=== PATIENT | male | born 1970 | race Caucasian/White ===

== ENCOUNTER 2023-01-17 15:17 | Outpatient (OUT) | payer MEDICARE, SELFPAY ==
[2023-01-17 11:24] LABS: Estimated Average Glucose 186 mg/dL; Glycohemoglobin A1C 8.1 % (4.5-6.2)
[2023-01-17 12:51] LABS: Alanine Aminotransferase 39 U/L (16-63); Albumin Globulin Ratio 0.7; Albumin Level 3.2 g/dL (3.4-5.0); Alkaline Phosphatase 145 U/L (46-116); Anion Gap 12.8; Aspartate Amino Transferase 17 U/L (15-37); BUN Creatinine Ratio 14.5; Bilirubin Total 0.3 mg/dL (0.2-1.0); C Reactive Protein 0.3 mg/dL (<=1.0); Calcium 9.1 mg/dL (8.5-10.1); Carbon Dioxide 28.9 mmol/L (21.0-32.0); Chloride 99 mmol/L (98-107); Estimated GFR (African America >60 (>=60); Estimated GFR (Non-African Ame >60 (>=60); Globulin 4.5 g/dL; Glucose 223 mg/dL (74-106); Potassium 3.7 mmol/L (3.5-5.1); Sodium 137 mmol/L (136-145); Thyroid Stimulating Hormone 1.163 uIU/mL (0.358-3.740); Total Protein 7.7 g/dL (6.4-8.2)
[2023-01-17 12:53] LABS: Free T4 0.91 ng/dL (0.76-1.46)
[2023-01-17 13:22] LABS: Erythrocyte Sedimentation Rate 28 mm/hr (<=20)
[2023-01-18 04:07] LABS: Vitamin B12 503 pg/mL (232-1245)
[2023-01-18 15:08] LABS: Anti-Centromere B Antibodies <0.2 AI (0.0-0.9); Anti-DNA (DS) Ab Qn <1 IU/mL (0-9); Anti-Jo-1 <0.2 AI (0.0-0.9); Antichromatin Antibodies <0.2 AI (0.0-0.9); Antiribosomal P Antibodies <0.2 AI (0.0-0.9); Antiscleroderma-70 Antibodies <0.2 AI (0.0-0.9); RNP Antibodies <0.2 AI (0.0-0.9); Sjogren's Anti-SS-A <0.2 AI (0.0-0.9); Sjogren's Anti-SS-B <0.2 AI (0.0-0.9); Smith/RNP Antibodies <0.2 AI (0.0-0.9)
[2023-01-19 15:08] LABS: Methylmalonic Acid, Serum 231 nmol/L (0-378)
== END 2023-01-17 15:18 | disposition home or self-care (01) ==
LOC: LAB 01-30 15:17
PROVIDERS: PCP Internal Medicine; Visit Provider Psychiatry & Neurology Neurology
DX: R20.2 Paresthesia of skin (principal)
CPT/HCPCS: 36415; 80053; 82607; 82746; 83036; 83516; 83921; 84155; 84165; 84439; 84443; 85652; 86140; 86225; 86235

== ENCOUNTER 2023-03-26 09:36 | Outpatient (OUT) | payer MEDICARE, SELFPAY ==
[2023-03-26 11:48] LABS: Chol HDL Ratio 5.3; Cholesterol 175 mg/dL (<=200); Glucose 299 mg/dL (74-106); HDL Cholesterol 33 mg/dL (40-60); Triglycerides 456 mg/dL (<=150); VLDL CHOLESTEROL 91.2 mg/dL
[2023-03-26 11:51] LABS: LDL Cholesterol Direct 83 mg/dL
== END 2023-03-26 09:37 | disposition home or self-care (01) ==
LOC: LAB 09:37
PROVIDERS: PCP Internal Medicine; Visit Provider Psychiatry & Neurology Psychiatry
DX: F20.9 Schizophrenia, unspecified (principal); Z79.899 Other long term (current) drug therapy
CPT/HCPCS: 36415; 80061; 82947; 83721

== ENCOUNTER 2023-03-27 12:16 | Outpatient (OUT) | payer MEDICARE, SELFPAY ==
[2023-04-05 14:11] LABS: Ova + Parasite Exam Final report (.)
== END 2023-03-27 12:17 | disposition home or self-care (01) ==
PROVIDERS: PCP Internal Medicine; Visit Provider Internal Medicine
DX: L29.0 Pruritus ani (principal)
CPT/HCPCS: 87177; 87209

== ENCOUNTER 2023-06-29 06:49 | Outpatient (OUT) | payer MEDICARE, SELFPAY ==
[2023-06-29 07:25] LABS: Basophils Absolute Auto 0.1 10^3/uL (0.0-0.1); Basophils Percent Auto 1.3 % (0.2-2.0); Eosinophils Absolute Auto 0.5 10^3/uL (0.0-0.7); Eosinophils Percent Auto 4.6 % (0.9-7.0); Hematocrit 44.4 % (42.0-54.0); Hemoglobin 15.5 g/dL (14.0-18.0); Immature Granulocytes Abs Auto 0.06 10^3/uL (0.00-0.03); Immature Granulocytes Pct Auto 0.6 % (0.0-0.5); Lymphocytes Absolute Auto 2.4 10^3/uL (1.2-3.8); Lymphocytes Percent Auto 24.8 % (20.5-60.0); Mean Corpuscular HGB Conc 34.9 g/dL (29.9-35.2); Mean Corpuscular Hemoglobin 33.7 pg (25.9-34.0); Mean Corpuscular Volume 96.5 fL (80.0-94.0); Mean Platelet Volume 9.8 fL (9.5-13.5); Monocytes Absolute Auto 0.8 10^3/uL (0.3-0.8); Monocytes Percent Auto 8.3 % (1.7-12.0); Neutrophils Absolute Auto 5.9 10^3/uL (1.4-6.5); Neutrophils Percent Auto 60.4 % (43.0-75.0); Platelet Count 234 10^3/uL (150-450); Red Cell Distribution Width 11.5 % (11.0-15.0); White Blood Count 9.8 10^3/uL (4.0-11.0)
[2023-06-29 07:28] LABS: Estimated Average Glucose 180 mg/dL; Glycohemoglobin A1C 7.9 % (4.5-6.2)
[2023-06-29 07:44] LABS: Creatinine Urine Random 140.36 mg/dL (20.00-300.00); Microalbum Creatinine Ratio Ur 9.2 mg/g (0.0-29.9); Microalbumin Urine Random <1.3 mg/dL (<=30.0)
[2023-06-29 07:47] LABS: Alanine Aminotransferase 31 U/L (16-63); Albumin Globulin Ratio 0.8; Albumin Level 3.4 g/dL (3.4-5.0); Alkaline Phosphatase 141 U/L (46-116); Anion Gap 15.4; Aspartate Amino Transferase 21 U/L (15-37); BUN Creatinine Ratio 9.6; Bilirubin Total 0.4 mg/dL (0.2-1.0); Calcium 8.5 mg/dL (8.5-10.1); Carbon Dioxide 29.5 mmol/L (21.0-32.0); Chloride 100 mmol/L (98-107); Chol HDL Ratio 3.5; Cholesterol 152 mg/dL (<=200); Estimated GFR (African America >60 (>=60); Estimated GFR (Non-African Ame >60 (>=60); Globulin 4.4 g/dL; Glucose 142 mg/dL (74-106); HDL Cholesterol 43 mg/dL (40-60); Potassium 3.9 mmol/L (3.5-5.1); Sodium 141 mmol/L (136-145); Total Protein 7.8 g/dL (6.4-8.2); Triglycerides 301 mg/dL (<=150); VLDL CHOLESTEROL 60.2 mg/dL
== END 2023-06-29 06:50 | disposition home or self-care (01) ==
LOC: LAB 06:50
PROVIDERS: PCP Internal Medicine; Visit Provider Internal Medicine
DX: E66.01 Morbid (severe) obesity due to excess calories (principal); E11.9 Type 2 diabetes mellitus without complications; Z79.4 Long term (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 of insulin; F20.9 Schizophrenia, unspecified; E78.5 Hyperlipidemia, unspecified
CPT/HCPCS: 36415; 80053; 80061; 82043; 82570; 83036; 84156; 85025

== ENCOUNTER 2023-09-24 06:38 | Outpatient (OUT) | payer MEDICARE, SELFPAY ==
--- OUTSIDE RECORDS SUMMARY | 2023-09-24 06:41 | XMS_ITS | CCD ---
Author Name Unknown Address [address] [facility] [id number] [place] [address] Organization [facility] Care Team Providers Care Director Corporate Security Name Role Phone RAQUEL PIERREL B Unavailable Unavailable PIERRE, KUL B Unavailable Unavailable PROVIDER, UNKNOWN Attending Unavailable PROVIDER, UNKNOWN Admitting Unavailable FAWWAD, STONE Primary Care Physician Terri Brito Unavailable Unavailable ERICKSON Lopez, DR TEE Brush Admitting Unavaila alex Lopez, DR TEE Brush Attending Unavaila ble FAWWAD, STONE H Referring Unavailable FAWWAD, STONE H Primary Care Unavailable ERICKSON Lopez, DR TEE Brush Consulting Unavaila ble FAWWAD, STONE H Admitting Unavailable FAWWAD, STONE H Attending Unavailable FAWWAD, STONE H Primary Care Unavailable FAWWAD, STONE H Consulting Unavailable FAWWAD, STONE H Admitting Unavailable FAWWAD, STONE H Attending Unavailable FAWWAD, STONE H Primary Care Unavailable FAWWAD, STONE H Consulting Unavailable FAWWAD, STONE H Admitting Unavailable FAWWAD, STONE H Attending Unavailable FAWWAD, STONE H Primary Care Unavailable FAWWAD, STONE H Admitting Unavailable FAWWAD, STONE H Attending Unavailable FAWWAD, STONE H Primary Care Unavailable FAWWAD, STONE H Consulting Unavailable FAWWAD, STONE H Primary Care Unavailable MARKER ., DR STYLES Admitting Unavailable MARKER ., DR STYLES Attending Unavailable MARKER ., DR STYLES Consulting Unavailable PERICO DIAMOND Consulting Unavailable FAWWAD, STONE H Primary Care Unavailable LISA, DR JUNITO Galvan Admitting Unavailabl e DR JUNITO GONZALEZ Attending Unavailmaite GONZALEZ, DR JUNITO Galvan Consulting UnavailSHANE Duke Admitting Unavailable SHANE NATH Attending Unavailable SHAIKH SIMS Primary Care Unavailable SHANE NATH Consulting Unavailable SHAIKH SIMS Primary Care Unavailable YU FERNANDEZ Attending Unavailable YU FERNANDEZ Attending Unavailable SHAIKH SIMS Primary Care Unavailable SHAIKH SIMS Attending Unavailable SHAIKH SIMS Attending Unavailable Kota Pozo Attending UnavailKota Andrea Admitting UnavailBam Santiago Primary Care Unavailable Allergies Allergy Classification Reported Allergen(s) Allergy Type Date of Onset Reaction(s) Facility (1 source) Shellfish Drug allergy (disorder) 03-15-2017 [facility] Repository Medications Current Medications Medication Drug Class(es) Dates Sig (Normalized) Sig (Original) albuterol CFC free 90 mcg/inh Inh Aer w/Adapt 8 gm (Ventolin) (3 sources) Start: 10-16-2011 take 2 puff(s) by inhalation four times daily albuterol CFC free 90 mcg/inh Inh Aer w/Adapt 8 gm (Ventolin) 2 puff(s), Inhalation, QID, Refill(s) 0, 0, Print Requisition Start Date: 10/16/11 Status: Ordered chlorproMAZINE (2 sources) Phenothiazine Start: 09-23-2010 Thorazine 25 mg Tab 50mg tid, Refills(s) 0 Start Date: 09/23/10 Status: Ordered 24 hr dilTIAZem hydrochloride 120 mg extended release oral capsule (2 sources) Calcium Channel Ada Start: 08-22-2011 Cardizem CD 120 mg/24 hours Cap-ER 120 mg = 1 cap(s), Oral, Daily, # 30 cap(s), Refills(s) 1, , Print Requisition Start Date: 08/22/11 Status: Ordered Start: 08-22-2011 Cardizem CD 12 0 mg/24 hours Cap-ER 120 mg = 1 cap(s), Oral, Daily, # 30 cap(s), Refills(s) 1, 1, Print Requisition Start Date: 08/22/11 Status: Ordered glipiZIDE er 5 mg 24 hr extended release oral tablet (3 sources) Sulfonylurea Start: 11-15-2021 take 1 tablet by mouth once daily glipiZIDE 5 mg ER Tab 5 mg = 1 tab(s), Oral, Daily Start Date: 11/15/21 Status: Ordered haloperidol 5 mg oral tablet (2 sources) Typical Antipsychotic Start: 04-11-2021 take 1 tablet by mouth twice daily haloperidol 5 mg Tab 5 mg = 1 tab(s), Oral, BID, # 60 tab(s), Refills(s) 0, Pharmacy: [facility] Start Date: 04/11/21 Status: Ordered Lantus (3 sources) Insulin Analog Start: 11-15-2021 Lantus insulin See Instructions Start Date: 11/15/21 Status: Ordered LORazepam 0.5 mg oral tablet (2 sources) Benzodiazepine Start: 09-23-2010 take 1 tablet by mouth three times daily as needed for anxiety Ativan 0.5 mg oral tablet = 1 tab(s), Oral, TID, PRN PRN for anxiety, tab(s), Refills(s) 0 Start Date: 09/23/10 Status: Ordered OLANZapine 20 mg oral tablet (1 source) Atypical Antipsychotic Start: 11-15-2022 olanzapine 20 mg oral tablet Refills(s) 0 Start Date: 11/15/22 Status: Ordered PARoxetine hydrochloride 30 mg oral tablet (2 sources) Serotonin Reuptake Inhibitor Start: 12-08-2011 take 1 tablet by mouth once daily paroxetine 30 mg Tab 30 mg = 1 tab(s), Oral, Daily, Refills(s) 0 Start Date: 12/08/11 Status: Ordered Start: 12-08-2011 take 1 tablet by laura th once daily paroxetine 30 mg Tab 30 mg = 1 tab(s), Oral, Daily, Refills(s) 0 Start Date: 12/08/11 Status: Ordered QUEtiapine 100 mg oral tablet (2 sources) Atypical Antipsychotic Start: 11-15-2021 take 1 tablet by mouth once daily SEROquel 100 mg Tab 100 mg = 1 tab(s), Oral, Daily Start Date: 11/15/21 Status: Ordered tadalafil 20 mg oral tablet (1 source) Phosphodiesterase 5 Inhibitor Start: 11-15-2021 take 1 tablet by mouth once daily Cialis 20 mg Tab 20 mg = 1 tab(s), Oral, Daily, As directed for erectile dysfunction., # 30 tab(s), Refills(s) 3, Pharmacy: [facility], 170, cm, 11/15/21 9:38:00 EDT, Height/Length Dosing, 116.6, kg, 11/15/21 9:38:00 EDT, Weight Dosing Start Date: 11/15/21 Status: Ordered 60 actuat testosterone 20.25 mg/actuat topical gel (2 sources) Androgen Start: 08-23-2021 AndroGel Pump 20.25 mg/1.25 g (1.62%) transdermal gel = 2 pump, Topical, qAM, # 75 gram, Refills(s) 1, Pharmacy: [facility], 170, cm, 07/05/21 10:18:00 EST, Height/Length Dosing, 170, kg, 08/23/21 9:37:00 EST, Weight Dosing Start Date: 08/23/21 Status: Ordered vardenafil 20 mg oral tablet (1 source) Phosphodiesterase 5 Inhibitor Start: 01-17-2022 take 1 tablet by mouth once daily as needed Levitra 20 mg Tab 20 mg = 1 tab(s), Oral, Daily, PRN for erectile dysfunction, # 30 tab(s), Refills(s) 1, Pharmacy: [facility], 170, cm, 01/17/22 10:42:00 EDT, Height/Length Dosing, 116.6, kg, 01/17/22 10:42:00 EDT, Weight Dosing Start Date: 01/17/22 Status: Ordered Completed/Discontinued Medications Medication Drug Class(es) Dates Sig (Normalized) Sig (Original) acetaminophen 325 mg / oxyCODONE hydrochloride 5 mg oral tablet (2 sources) Opioid Agonist Start: 12-08-2011 Percocet 325 mg-5 mg Tab 1 tab(s), Oral, q6hr PRN as needed for pain, 20 tab(s), Refill(s) 0, 0, Print Requisition Start Date: 12/08/11 Status: Ordered Ipratropium (3 sources) Anticholinergic Start: 08-22-2011 take 2.5 mL by inhalation every four hours as needed for dyspnea ipratropium 0.02% inhalation solution 500 microgram = 2.5 mL, NEB, q4hr, PRN PRN Dyspnea, # 150 mL, Refills(s) 0, 0, Print Requisition Start Date: 08/22/11 Status: Ordered Start: 08-22-2011 take 2.5 mL by inhal ation every four hours as needed for dyspnea ipratropium 0.02% inhalation solution 500 microgram = 2.5 mL, NEB, q4hr, PRN PRN Dyspnea, # 150 mL, Refills(s) 0, 0, Print Requisition Start Date: 08/22/11 Status: Ordered naproxen 500 mg oral tablet (2 sources) Nonsteroidal Anti-inflammatory Drug Start: 10-16-2011 take 1 tablet by mouth twice daily naproxen 500 mg Tab 500 mg = 1 tab(s), Oral, BID, Take one tab by mouth two times a day, # 14 tab(s), Refills(s) 0, 0, Print Requisition Start Date: 10/16/11 Status: Ordered Problems Active Problems Problem Classification Problem Date Documented Da te Episodic/Chronic Chronic obstructive pulmonary disease and bronchiectasis (4 sources) Chronic obstructive lung disease; Translations: [Chronic obstructive pulmonary disease, unspecified] Onset: 03-27-2022 10-16-2011 Chronic Diabetes mellitus without complication (5 sources) Type 2 diabetes mellitus without complications; Translations: [TYPE 2 DM WITHOUT COMPLICATIONS] Onset: 03-14-2022 Chronic Genitourinary symptoms and ill-defined conditions (5 sources) Nocturia; Translations: [Nocturia] Onset: 11-15-2021 Episodic Mood disorders (4 sources) Depressive disorder; Translations: [Bipolar disorder, unspecified] Onset: 03-27-2022 09-26-2013 Chronic Mood disorders (2 sources) Major depressive disorder, single episode, unspecified; Translations: [Major depressive disorder, single episode, unspecified] Onset: 01-29-2017 Other endocrine disorders (2 sources) Testicular hypofunction; Translations: [Testicular hypofunction] Onset: 11-15-2021 Chronic Other endocrine disorders (3 sources) Male hypogonadism 07-05-2021 Chronic Other gastrointestinal disorders (2 sources) Incontinence of feces; Translations: [Full incontinence of feces] Onset: 11-15-2022 Episodic Other male genital disorders (6 sources) Secondary erectile dysfunction; Translations: [Erectile dysfunction due to diseases classified elsewhere] Onset: 11-15-2021 Chronic Other male genital disorders (1 source) Erectile dysfunction due to diseases classified elsewhere; Translations: [ERECTILE DYSF D/T DZ CLASS ELSW] Onset: 12-09-2021 Chronic Other nervous system disorders (1 source) Paresthesia of skin; Translations: [PARESTHESIA OF SKIN] Onset: 11-26-2022 Episodic Other nutritional; endocrine; and metabolic disorders (1 source) Morbid (severe) obesity due to excess calories; Translations: [MORBID SEVERE OBES D/T EXCESS HEIDI] Onset: 03-27-2022 Chronic Other nutritional; endocrine; and metabolic disorders (1 source) Body mass index (BMI) 39.0-39.9, adult; Translations: [BODY MASS INDEX BMI 39.0-39.9 ADULT] Onset: 03-27-2022 Chronic Residual codes; unclassified (1 source) Pain; Translations: [Pain, unspecified] Onset: 11-15-2022 Episodic Residual codes; unclassified (1 source) Electric shock type pain 11-15-2022 Episodic Schizophrenia and other psychotic disorders (4 sources) Schizoaffective disorder, unspecified; 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] Onset: 01-29-2017 Chronic Substance-related disorders (1 source) Nicotine dependence, cigarettes, uncomplicated; Translations: [NICOTINE DEPEND CIGARETTES UNCOMP] Onset: 03-27-2022 Chronic Past or Other Problems Problem Classification Problem Date Documented Da te Episodic/Chronic Fluid and electrolyte disorders (2 sources) Hypokalemia; Translations: [Other disorders of electrolyte and fluid balance, not elsewhere classified] Onset: 03-14-2022 Episodic Nonspecific chest pain (3 sources) Chest pain, unspecified; Translations: [CHEST PAIN UNSPECIFIED] Onset: 03-24-2022 Episodic Other aftercare (5 sources) 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; Translations: [OTH LEISURE TRAVEL AGENT CURRENT DRUG THERAPY] Onset: 12-08-2021 Episodic Other aftercare (1 source) halfway (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 of insulin; Translations: [ASSISTED CURRENT USE OF INSULIN] Onset: 03-27-2022 Episodic Other gastrointestinal disorders (1 source) Constipation, unspecified; Translations: [CONSTIPATION UNSPECIFIED] Onset: 03-27-2022 Episodic Other nervous system disorders (3 sources) Fasciculation; Translations: [FASCICULATION] Onset: 03-11-2022 Episodic Results Test Name Value Interpretation Reference Range Facility CBC AUTO DIFFon 11-24-2022 BASO # 0.1 103/ul Normal 0.0-0.1 [facility] Comment on above: Performed By: #### C BC #### [facility] [address] [address] [address] Kenna Thomas Basophils/100 WBC (Bld) 1.1 % Normal 0.2-2.0 [facility] Comment on above: Performed By: #### C BC #### [facility] [address] [address] [address] Kenna Thomas EO # 0.4 103/ul Normal 0.0-0.7 [facility] Comment on above: Performed By: #### C BC #### [facility] [address] [place] [address] Dr. Kenna Thomas Eosinophils/100 WBC (Bld) 4.6 % Normal 0.9-7.0 [facility] Comment on above: Performed By: #### C BC #### [facility] [address] [address] [address] Kenna Thomas Erythrocyte distribution width (RBC) [Ratio] 11.5 % Normal 11.0-15.0 [facility] Comment on above: Performed By: #### C BC #### [facility] [address] [place] [address] Dr. Kenna Thomas Hematocrit (Bld) [Volume fraction] 44.3 % Normal 42.0-54.0 [facility] Comment on above: Performed By: #### C BC #### [facility] [address] [address] [address] Kenna Thomas Hemoglobin (Bld) [Mass/Vol] 15.8 g/dL Normal 14.0-18.0 [facility] Comment on above: Performed By: #### C BC #### [facility] [address] [place] [address] Dr. Kenna Thomas IG # 0.03 10e3/ul Normal 0.00-0.03 [facility] Comment on above: Performed By: #### C BC #### [facility] [address] [place] [address] Dr. Kenna Thomas IG % 0.4 % Normal 0.0-0.5 [facility] Comment on above: Performed By: #### C BC #### [facility] [address] [place] [address] Dr. Kenna Thomas LYMPH # 1.8 103/ul Normal 1.2-3.8 [facility] Comment on above: Performed By: #### C BC #### [facility] [address] [place] [address] Dr. Kenna Thomas Lymphocytes/100 WBC (Bld) 23.3 % Normal 20.5-60.0 [facility] Comment on above: Performed By: #### C BC #### [facility] [address] [place] [address] Dr. Kenna Thomas MANUAL DIFF REQ NO Normal [facility] Comment on above: Performed By: #### C BC #### [facility] [address] [place] [address] Dr. Kenna Thomas MCH (RBC) [Entitic mass] 34.1 pg Critically high 25.9-34.0 [facility] Comment on above: Performed By: #### C BC #### [facility] [address] [place] [address] Dr. Kenna Thomas MCHC (RBC) [Mass/Vol] 35.7 g/dL Critically high 29.9-35.2 [facility] Comment on above: Performed By: #### C BC #### [facility] [address] [place] [address] Dr. Kenna Thomas MCV (RBC) [Entitic vol] 95.5 fL Critically high 80.0-94.0 [facility] Comment on above: Performed By: #### C BC #### [facility] [address] [place] [address] Dr. Kenna Thomas MONO # 0.7 103/ul Normal 0.3-0.8 [facility] Comment on above: Performed By: #### C BC #### [facility] [address] [address] [address] Kenna Thomas Monocytes/100 WBC (Bld) 8.4 % Normal 1.7-12.0 [facility] Comment on above: Performed By: #### C BC #### [facility] [address] [place] [address] Dr. Kenna Thomas NEUT # 4.9 103/ul Normal 1.4-6.5 [facility] Comment on above: Performed By: #### C BC #### [facility] [address] [place] [address] Dr. Kenna Thomas Neutrophils/100 WBC (Bld) 62.2 % Normal 43.0-75.0 [facility] Comment on above: Performed By: #### C BC #### [facility] [address] [place] [address] Dr. Kenna Thomas Platelet mean volume (Bld) [Entitic vol] 9.6 fL Normal 9.5-13.5 [facility] Comment on above: Performed By: #### C BC #### [facility] [address] [place] [address] Dr. Kenna Thomas PLT 251 103/ul Normal 150-450 [facility] Comment on above: Performed By: #### C BC #### [facility] [address] [place] [address] Dr. Kenna Thomas RBC 4.64 106/ul Critically low 4.70-6.10 [facility] Comment on above: Performed By: #### C BC #### [facility] [address] [place] [address] Dr. Knena Thomas WBC 7.9 103/ul Normal 4.0-11.0 [facility] Comment on above: Performed By: #### C BC #### [facility] [address] [place] [address] Dr. Kenna Thomas GLYCOHEMOGLOBIN A1Con 2022 ADA RECOMMENDATION SEE BELOW Normal [facility] Comment on above: Result Comment: ADA RECOMMENDED LIMIT 4.0 - 6.0 ADA THERAPEUTIC TARGET < 7.0 ACTION SUGGESTED > 7.0 Performed By: #### G ELGIN, LIPID #### [facility] [address] [address] [address] Kenna Thomas Glucose [Mass/Vol] 171 mg/dL Normal [facility] Comment on above: Performed By: #### G ELGIN, LIPID #### [facility] [address] [address] [address] Kenna Thomas HbA1c (Bld) [Mass fraction] 7.6 % Critically high 4.5-6.2 [facility] Comment on above: Performed By: #### G ELGIN, LIPID #### [facility] [address] [address] [address] Kenna Thomas PROF 14(COMP METB)on 023 Albumin [Mass/Vol] 3.4 g/dL Normal 3.4-5.0 [facility] Comment on above: Performed By: #### C MP #### [facility] [address] [address] [address] Kenna Thomas Albumin/Globulin [Mass ratio] 0.7 {ratio} Normal [facility] Comment on above: Performed By: #### C MP #### [facility] [address] [address] [address] Kenna Thomas ALP [Catalytic activity/Vol] 166 U/L Critically high 46-116 [facility] Comment on above: Performed By: #### C MP #### [facility] [address] [address] [address] Kenna Thomas ALT [Catalytic activity/Vol] 46 U/L Normal 16-63 [facility] Comment on above: Performed By: #### C MP #### [facility] [address] [address] [address] Kenna Thomas Anion gap [Moles/Vol] 12.2 mmol/L Normal [facility] Comment on above: Performed By: #### C MP #### [facility] [address] [address] [address] Kenna Thomas AST [Catalytic activity/Vol] 33 U/L Normal 15-37 [facility] Comment on above: Performed By: #### C MP #### [facility] [address] [address] [address] Kenna Thomas Bilirubin [Mass/Vol] 0.3 mg/dL Normal 0.2-1.0 [facility] Comment on above: Performed By: #### C MP #### [facility] [address] [address] [address] Kenna Thomas Calcium [Mass/Vol] 9.6 mg/dL Normal 8.5-10.1 [facility] Comment on above: Performed By: #### C MP #### [facility] [address] [address] [address] Kenna Thomas Chloride [Moles/Vol] 99 mmol/L Normal 98-107 [facility] Comment on above: Performed By: #### C MP #### [facility] [address] [place] [address] Dr. Kenna Thomas CO2 [Moles/Vol] 30.4 mmol/L Normal 21.0-32.0 [facility] Comment on above: Performed By: #### C MP #### [facility] [address] [place] [address] Dr. Kenna Thomas Creatinine [Mass/Vol] 1.01 mg/dL Normal 0.70-1.30 [facility] Comment on above: Performed By: #### C MP #### [facility] [address] [place] [address] Dr. Kenna Thomas EGFR-AF GERMAN >60 Normal >=60 [facility] Comment on above: Performed By: #### C MP #### [facility] [address] [place] [address] Dr. Kenna Thomas EGFR-NON AF GERMAN >60 Normal >=60 [facility] Comment on above: Performed By: #### C MP #### [facility] [address] [place] [address] Dr. Kenna Thomas Globulin (S) [Mass/Vol] 5.2 g/dL Normal [facility] Comment on above: Performed By: #### C MP #### [facility] [address] [place] [address] Dr. Kenna Thomas Glucose [Mass/Vol] 208 mg/dL Critically high 74-106 [facility] Comment on above: Performed By: #### C MP #### [facility] [address] [place] [address] Dr. Kenna Thomas Potassium [Moles/Vol] 4.6 mmol/L Normal 3.5-5.1 [facility] Comment on above: Performed By: #### C MP #### [facility] [address] [place] [address] Dr. Kenna Thomas Protein [Mass/Vol] 8.6 g/dL Critically high 6.4-8.2 [facility] Comment on above: Performed By: #### C MP #### [facility] [address] [place] [address] Dr. Kenna Thomas Sodium [Moles/Vol] 137 mmol/L Normal 136-145 [facility] Comment on above: Performed By: #### C MP #### [facility] [address] [place] [address] Dr. Kenna Thomas Urea nitrogen [Mass/Vol] 7.0 mg/dL Normal 7.0-18.0 [facility] Comment on above: Performed By: #### C MP #### [facility] [address] [place] [address] Dr. Kenna Thomas Urea nitrogen/Creatinine [Mass ratio] 6.9 mg/mg Normal [facility] Comment on above: Performed By: #### C MP #### [facility] [address] [place] [address] Dr. Kenna Thomas VIT B12 AND FOLATEon 023 Cobalamin (Vitamin B12) [Mass/Vol] 841.0 pg/mL Normal 193.0-986.0 [facility] Comment on above: Performed By: #### B 12FOL #### [facility] [address] [place] [address] Dr. Kenna Thomas FOLATE 17.30 ng/mL Normal 8.60-58.90 [facility] Comment on above: Performed By: #### B 12FOL #### [facility] [address] [place] [address] Dr. Kenna Thomas Screenson 11-16-2022 Screens [id number] [facility] Ambulatory Visit Summaryon 0 11-15-2022 Ambulatory Visit Summary JOHNNY HAMILTON :1970 Visit Date:11/15/2022 Ambulatory Visit Instructions Your Diagnosis ED (erectile dysfunction) Fecal incontinence Tests Performed Urnls Dip Stick Auto w/o Microscopy POC [id number] Your Care Team Attending Physician - YU FERNANDEZ PA-C Primary Care Physician - SHAIKH SIMS This Is Your Medications List Contact prescribing physician if questions or concerns albuterol (albuterol CFC free 90 mcg/inh Inh Aer w/Adapt 8 gm (Ventolin)) glipiZIDE (glipiZIDE 5 mg ER Tab) insulin glargine (Lantus insulin) ipratropium (ipratropium 0.02% inhalation solution) olanzapine (olanzapine 20 mg oral tablet) Procedures Performed None. Discharge Vitals Heart Rate (Peripheral) 68 Respiratory Rate 16 Blood Pressure 138/74 Height 170 cm Height 67 in Weight 118 kg Weight 259.6 lb BMI 40.83 What to do next Scheduled Follow-Up Appointments Sunday. 2023 9:00 AM EDT With: YU FERNANDEZ PA-C Where: [facility] Patient Educationon 11-16-19 Patient Education Urology Erectile Dysfunction Erectile dysfunction (ED) is the inability to get or keep an erection in order to have sexual intercourse. ED is considered a symptom of an underlying disorder and is not considered a disease. ED may include: ? Inability to get an erection. ? Lack of enough hardness of the erection to allow penetration. ? Loss of erection before sex is finished. What are the causes? This condition may be caused by: ? Physical causes, such as: ? Artery problems. This may include heart disease, high blood pressure, atherosclerosis, and diabetes. ? Hormonal problems, such as low testosterone. ? Obesity. ? Nerve problems. This may include back or pelvic injuries, multiple sclerosis, Parkinson's disease, spinal cord injury, and stroke. ? Certain medicines, such as: ? Pain relievers. ? Antidepressants. ? Blood pressure medicines and water pills (diuretics). ? Cancer medicines. ? Antihistamines. ? Muscle relaxants. ? Lifestyle factors, such as: ? Use of drugs such as marijuana, cocaine, or opioids. ? Excessive use of alcohol. ? Smoking. ? Lack of physical activity or exercise. ? Psychological causes, such as: ? Anxiety or stress. ? Sadness or depression. ? Exhaustion. ? Fear about sexual performance. ? Guilt. What are the signs or symptoms? Symptoms of this condition include: ? Inability to get an erection. ? Lack of enough hardness of the erection to allow penetration. ? Loss of the erection before sex is finished. ? Sometimes having normal erections, but with frequent unsatisfactory episodes. ? Low sexual satisfaction in either partner due to erection problems. ? A curved penis occurring with erection. The curve may cause pain, or the penis may be too curved to allow for intercourse. ? Never having nighttime or morning erections. How is this diagnosed? This condition is often diagnosed by: ? Performing a physical exam to find other diseases or specific problems with the penis. ? Asking you detailed questions about the problem. ? Doing tests, such as: ? Blood tests to check for diabetes mellitus or high cholesterol, or to measure hormone levels. ? Other tests to check for underlying health conditions. ? An ultrasound exam to check for scarring. ? A test to check blood flow to the penis. ? Doing a sleep study at home to measure nighttime erections. How is this treated? This condition may be treated by: ? Medicines, such as: ? Medicine taken by mouth to help you achieve an erection (oral medicine). ? Hormone replacement therapy to replace low testosterone levels. ? Medicine that is injected into the penis. Your health care provider may instruct you how to give yourself these injections at home. ? Medicine that is delivered with a short applicator tube. The tube is inserted into the opening at the tip of the penis, which is the opening of the urethra. A tiny pellet of medicine is put in the urethra. The pellet dissolves and enhances erectile function. This is also called MUSE (medicated urethral system for erections) therapy. ? Vacuum pump. This is a pump with a ring on it. The pump and ring are placed on the penis and used to create pressure that helps the penis become erect. ? Penile implant surgery. In this procedure, you may receive: ? An inflatable implant. This consists of cylinders, a pump, and a reservoir. The cylinders can be inflated with a fluid that helps to create an erection, and they can be deflated after intercourse. ? A semi-rigid implant. This consists of two silicone rubber rods. The rods provide some rigidity. They are also flexible, so the penis can both curve downward in its normal position and become straight for sexual intercourse. ? Blood vessel surgery to improve blood flow to the penis. During this procedure, a blood vessel from a different part of the body is placed into the penis to allow blood to flow around (bypass) damaged or blocked blood vessels. ? Lifestyle changes, such as exercising more, losing weight, and quitting smoking. Follow these instructions at home: Medicines ? Take [id number]-rcvkciy and prescription medicines only as told by your health care provider. Do not increase the dosage without first discussing it with your health care provider. ? If you are using self-injections, do injections as directed by your health care provider. Make sure you avoid any veins that are on the surface of the penis. After giving an injection, apply pressure to the injection site for 5 minutes. ? Talk to your health care provider about how to prevent headaches while taking ED medicines. These medicines may cause a sudden headache due to the increase in blood flow in your body. General instructions ? Exercise regularly, as directed by your health care provider. Work with your health care provider to lose weight, if needed. ? Do not use any products that contain nicotine or tobacco. These products include cig (more content not included)... Normal [facility] Urology Office/Clinic Noteon 11-15-2022 Urology Office/Clinic Note Chief Complaint Urination w/Erection HPI Staff Former DLS pt here today.Pt last seen in our office 01/17/22 by DLS due to Hypogonadism, ED & Nocturia. Pt was started on Vardenafil 20mg PRN at that time. -pt states he never took Vardenafil due to cost. IPSS 6 Pt states he is having intermittent electrical shocks in penis/genitals/lungs/f eet and anus (not at the same time). Started back in 2017. When pt gets aroused, he will get the electrical shock at times (on head of penis or around) or feel the need to urinate. Good urinary flow. Denies pain/burning or blood in urine. Voids q1hr during the day but drinks a lot of fluids. Voids 3-4x/night, chronic and unchanged. Not bothersome. Pt denies any urinary complaints. History of Present Illness staff HPI reviewed and agree. Tests Reviewed: Reviewed UA. Review of Systems PHQ Score Initial Depression Screen Score: 0 no fever, chills, malaise, myalgia. no rash/lesions. no chest pain, palpitations, or SOB. no abdominal pain, nausea, vomiting. no unilateral calf swelling, redness, pain Physical Exam Vitals & Measurements HR: 68(Peripheral) RR: 16 BP: 138/74 HT: 67 in HT: 170 cm WT: 118 kg WT: 259.6 lb BMI: 40.83 General: nontoxic, NAD Mouth: moist mucosa Lungs: normal respiratory effort Cardio: regular rate, good distal perfusion Abdomen: nondistended, no suprapubic distention or tenderness, no CVA tenderness Neurologic: Grossly normal Skin: No rashes or suspicious lesions Assessment/Plan Former DLS pt 1. Electric shock-type pain (R52: Pain, unspecified) c/o electric like pain in the anus and in the penis. Sometimes with erection, most times at rest. Also reports when he gets an erection he feels like he might need to urinate but doesn't actually urinate. Initially I thought these complaints may represent chronic prostatitis or perhaps pudendal neuralgia, however with further questioning I find that pt also having these same electric type pains in his chest, head, ears, knees, feet, abdomen. This has been going on for about 5 years. Advised pt to speak with his psych team to see if this could be related to his medication (olanzapine) and/or see if PCP thinks a neuro eval may be warranted as pt finds these symptoms very bothersome to his QOL. Ordered: E&M of Est. Patient Moderate 30-39 Min 22157 2. ED (erectile dysfunction) (N52.1: Erectile dysfunction due to diseases classified elsewhere) Has tried Cialis and Viagra in the past without noticeable improvement. Never started Levitra, was cost prohibitive. Discussed ICI including process, risks/benefits. Pt wishes to think about ICI before proceeding. Unable to achieve true erection for 20+ years. Ordered: E&M of Est. Patient Moderate 30-39 Min 49562 Urnls Dip Stick Auto w/o Microscopy POC 82017 3. Fecal incontinence (R15.9: Full incontinence of feces) Sometimes loses control of bowels. No pain with this. no urinary incontinence. recommended he see GI. says his PCP already has a referral in place for this. Ordered: E&M of Est. Patient Moderate 30-39 Min 41663 Follow-up With When Contact Information REBECCA OLIVEIRA, YU Huang, URL [phone] [place] [address] Additional Instructions: 1 yr to readdress ED Patient Education Erectile Dysfunction Documentation recorded by the scribestefani Marie accurately reflects the services(s) I performed and decisions made by me. Authenticated by Yu Fernandez PA-C on 11/15/2022 18:14:25. I, Leonie Marie, personally scribed for CHEN Washington on 11/15/2022 15:50:25. . Problem List/Past Medical History Ongoing COPD ED (erectile dysfunction) Fecal incontinence Hypogonadism male Nocturia Historical Depression Procedure/Surgical History None. Medications albuterol CFC free 90 mcg/inh Inh Aer w/Adapt 8 gm (Ventolin), 2 puff(s), Inhalation, QID glipiZIDE 5 mg ER Tab, 5 mg= 1 tab(s), Oral, Daily ipratropium 0.02% inhalation solution, 500 mcg= 2.5 mL, NEB, q4hr, PRN Lantus insulin, See Instructions olanzapine 20 mg oral tablet Allergies No Known Allergies Social History Alcohol - Denies Alcohol Use, 08/19/2011 Substance Abuse - Denies Substance Abuse, 08/19/2011 Tobacco - High Risk, 08/19/2011 10 or more cigarettes (1/2 pack or more)/day in last 30 days Tobacco Use:. Cigarettes, Ready to change: No. Household tobacco concerns: No., 11/15/2022 Pt. is uncertain, Cigarettes, 01/10/2011 Family History Depression: Mother. Diabetes: Father. Hypertension: Mother and Father. Immunizations Vaccine Date Status Comments SARS-CoV-2 (COVID-19) mRNA BNT-162b2 vax 01/01/2021 Recorded 2022-11-15: TPV40 SARS-CoV-2 (COVID-19) mRNA BNT-162b2 vax 12/11/2020 Recorded 2022-11-15: TPV40 Lab Results Ambulatory Point of Care Results Bilirubin Urine Dipstick: Negative (11/15/22 14:46:00) Blood Urine Dipstick: Negative (11/15/22 14:46:00) Glucose Urin (more content not included)... Normal [facility] Comment on above: Result Comment: Elec tronically Signed By: YU FERNANDEZ PA-C\.br\Date and Time Signed: 11/15/22 18:16 EDT\.br\Electronically Co-Signed By: Leonie Marie\.br\Date and Time Co-Signed: 11/15/22 15:50 EDT GLYCOHEMOGLOBIN A1Con 2021 ADA RECOMMENDATION SEE BELOW Normal [facility] Comment on above: Result Comment: ADA RECOMMENDED LIMIT 4.0 - 6.0 ADA THERAPEUTIC TARGET < 7.0 ACTION SUGGESTED > 7.0 Performed By: #### A 1C #### [facility] [address] [place] [address] Dr. Kenna Thomas Glucose [Mass/Vol] 148 mg/dL Normal [facility] Comment on above: Performed By: #### A 1C #### [facility] [address] [address] [address] Kenna Thomas HbA1c (Bld) [Mass fraction] 6.8 % Critically high 4.5-6.2 [facility] Comment on above: Performed By: #### A 1C #### [facility] [address] [address] [address] Kenna Thomas CBC AUTO DIFFon 03-24-2022 BASO # 0.1 103/ul Normal 0.0-0.1 [facility] Comment on above: Performed By: #### G ELGIN, LIPID #### [facility] [address] [place] [address] Dr. Kenna Thomas Basophils/100 WBC (Bld) 1.0 % Normal 0.2-2.0 [facility] Comment on above: Performed By: #### G ELGIN, LIPID #### [facility] [address] [place] [address] Dr. Kenna Thomas EO # 0.5 103/ul Normal 0.0-0.7 [facility] Comment on above: Performed By: #### G ELGIN, LIPID #### [facility] [address] [place] [address] Dr. Kenna Thomas Eosinophils/100 WBC (Bld) 4.0 % Normal 0.9-7.0 [facility] Comment on above: Performed By: #### G ELGIN, LIPID #### [facility] [address] [place] [address] Dr. Kenna Thomas Erythrocyte distribution width (RBC) [Ratio] 12.3 % Normal 11.0-15.0 [facility] Comment on above: Performed By: #### G ELGIN, LIPID #### [facility] [address] [place] [address] Dr. Kenna Thomas Hematocrit (Bld) [Volume fraction] 40.5 % Critically low 42.0-54.0 [facility] Comment on above: Performed By: #### G ELGIN, LIPID #### [facility] [address] [place] [address] Dr. Kenna Thomas Hemoglobin (Bld) [Mass/Vol] 14.4 g/dL Normal 14.0-18.0 [facility] Comment on above: Performed By: #### G ELGIN, LIPID #### [facility] [address] [place] [address] Dr. Kenna Thomas IG # 0.05 10e3/ul Critically high 0.00-0.03 [facility] Comment on above: Performed By: #### G ELGIN, LIPID #### [facility] [address] [place] [address] Dr. Kenna Thomas IG % 0.4 % Normal 0.0-0.5 [facility] Comment on above: Performed By: #### G ELGIN, LIPID #### [facility] [address] [address] [address] Kenna Thomas LYMPH # 3.0 103/ul Normal 1.2-3.8 [facility] Comment on above: Performed By: #### G ELGIN, LIPID #### [facility] [address] [address] [address] Kenna Thomas Lymphocytes/100 WBC (Bld) 24.6 % Normal 20.5-60.0 [facility] Comment on above: Performed By: #### G ELGIN, LIPID #### [facility] [address] [address] [address] Kenna Thomas MANUAL DIFF REQ NO Normal [facility] Comment on above: Performed By: #### G ELGIN, LIPID #### [facility] [address] [place] [address] Dr. Kenna Thomas MCH (RBC) [Entitic mass] 34.0 pg Normal 25.9-34.0 [facility] Comment on above: Performed By: #### G ELGIN, LIPID #### [facility] [address] [place] [address] Dr. Kenna Thomas MCHC (RBC) [Mass/Vol] 35.6 g/dL Critically high 29.9-35.2 [facility] Comment on above: Performed By: #### G ELGIN, LIPID #### [facility] [address] [address] [address] Kenna Thomas MCV (RBC) [Entitic vol] 95.7 fL Critically high 80.0-94.0 [facility] Comment on above: Performed By: #### G ELGIN, LIPID #### [facility] [address] [address] [address] Kenna Thomas MONO # 0.9 103/ul Critically high 0.3-0.8 [facility] Comment on above: Performed By: #### G ELGIN, LIPID #### [facility] [address] [address] [address] Kenna Thomas Monocytes/100 WBC (Bld) 7.6 % Normal 1.7-12.0 [facility] Comment on above: Performed By: #### G ELGIN, LIPID #### [facility] [address] [address] [address] Kenna Thomas NEUT # 7.5 103/ul Critically high 1.4-6.5 [facility] Comment on above: Performed By: #### G ELGIN, LIPID #### [facility] [address] [address] [address] Kenna Thomas Neutrophils/100 WBC (Bld) 62.4 % Normal 43.0-75.0 [facility] Comment on above: Performed By: #### G ELGIN, LIPID #### [facility] [address] [address] [address] Kenna Thomas Platelet mean volume (Bld) [Entitic vol] 10.5 fL Normal 9.5-13.5 [facility] Comment on above: Performed By: #### G ELGIN, LIPID #### [facility] [address] [address] [address] Kenna Thomas PLT 219 103/ul Normal 150-450 [facility] Comment on above: Performed By: #### G ELGIN, LIPID #### [facility] [address] [address] [address] Kenna Thomas RBC 4.23 106/ul Critically low 4.70-6.10 [facility] Comment on above: Performed By: #### G ELGIN, LIPID #### [facility] [address] [address] [address] Kenna Thomas WBC 12.0 103/ul Critically high 4.0-11.0 [facility] Comment on above: Performed By: #### G ELGIN, LIPID #### [facility] [address] [address] [address] Kenna Thomas PROF 14(COMP METB)on 022 Albumin [Mass/Vol] 3.2 g/dL Critically low 3.4-5.0 [facility] Comment on above: Performed By: #### C MP #### [facility] [address] [address] [address] Kenna Thomas Albumin/Globulin [Mass ratio] 0.8 {ratio} Normal [facility] Comment on above: Performed By: #### C MP #### [facility] [address] [address] [address] Kenna Thomas ALP [Catalytic activity/Vol] 167 U/L Critically high 46-116 [facility] Comment on above: Performed By: #### C MP #### [facility] [address] [address] [address] Kenna Thomas ALT [Catalytic activity/Vol] 30 U/L Normal 16-63 [facility] Comment on above: Performed By: #### C MP #### [facility] [address] [address] [address] Kenna Thomas Anion gap [Moles/Vol] 12.0 mmol/L Normal [facility] Comment on above: Performed By: #### C MP #### [facility] [address] [place] [address] Dr. Kenna Thomas AST [Catalytic activity/Vol] 12 U/L Critically low 15-37 [facility] Comment on above: Performed By: #### C MP #### [facility] [address] [address] [address] Kenna Thomas Bilirubin [Mass/Vol] 0.2 mg/dL Normal 0.2-1.0 [facility] Comment on above: Performed By: #### C MP #### [facility] [address] [place] [address] Dr. Kenna Thomas Calcium [Mass/Vol] 8.2 mg/dL Critically low 8.5-10.1 [facility] Comment on above: Performed By: #### C MP #### [facility] [address] [address] [address] Kenna Thomas Chloride [Moles/Vol] 102 mmol/L Normal 98-107 [facility] Comment on above: Performed By: #### C MP #### [facility] [address] [address] [address] Kenna Thomas CO2 [Moles/Vol] 24.3 mmol/L Normal 21.0-32.0 [facility] Comment on above: Performed By: #### C MP #### [facility] [address] [address] [address] Kenna Thomas Creatinine [Mass/Vol] 1.03 mg/dL Normal 0.70-1.30 [facility] Comment on above: Performed By: #### C MP #### [facility] [address] [address] [address] Kenna Thomas EGFR-AF GERMAN >60 Normal >=60 [facility] Comment on above: Performed By: #### C MP #### [facility] [address] [address] [address] Kenna Thomas EGFR-NON AF GERMAN >60 Normal >=60 [facility] Comment on above: Performed By: #### C MP #### [facility] [address] [place] [address] Dr. Kenna Thomas Globulin (S) [Mass/Vol] 3.8 g/dL Normal [facility] Comment on above: Performed By: #### C MP #### [facility] [address] [place] [address] Dr. Kenna Thomas Glucose [Mass/Vol] 258 mg/dL Critically high 74-106 [facility] Comment on above: Performed By: #### C MP #### [facility] [address] [place] [address] Dr. Kenna Thomas Potassium [Moles/Vol] 3.3 mmol/L Critically low 3.5-5.1 [facility] Comment on above: Performed By: #### C MP #### [facility] [address] [address] [address] Kenna Thomas Protein [Mass/Vol] 7.0 g/dL Normal 6.4-8.2 [facility] Comment on above: Performed By: #### C MP #### [facility] [address] [place] [address] Dr. Kenna Thomas Sodium [Moles/Vol] 135 mmol/L Critically low 136-145 [facility] Comment on above: Performed By: #### C MP #### [facility] [address] [place] [address] Dr. Kenna Thomas Urea nitrogen [Mass/Vol] 8.0 mg/dL Normal 7.0-18.0 [facility] Comment on above: Performed By: #### C MP #### [facility] [address] [address] [address] Kenna Thomas Urea nitrogen/Creatinine [Mass ratio] 7.8 mg/mg Normal [facility] Comment on above: Performed By: #### C MP #### [facility] [address] [address] [address] Kenna Thomas XR ABD FLAT UP_PA Howie 03-24 XR ABD FLAT UP_PA CH ACUTE ABDOMINAL SER IES HISTORY: Abdominal pain with an electrical stabbing pain in the chest. TECHNIQUE: A single view of the chest and 3 views of the abdomen and pelvis are submitted for review. COMPARISON: 08/13/2021 acute abdominal series FINDINGS: Chest x-ray: The lungs are hyper expanded. There is no acute infiltrate. There is no evidence for effusion. The cardiomediastinal silhouette measures within normal limits. Pulmonary vascularity is unremarkable. Osseous structures are within normal limits for age.. Abdomen: There is no evidence of free air.. The bowel gas pattern is nonobstructive. There are no abnormal calcifications. Osseous structures are within normal limits. IMPRESSION: Chest x-ray: No plain film evidence for acute cardiopulmonary disease. Abdomen: 1. Nonobstructive bowel gas pattern. 2. Moderate retention of stool. 3. If symptoms continue CT scan would help better delineate Electronically authenticated by: PERICO DIAMOND Date: 2022-03-24 01:01 Normal [facility] CBC AUTO DIFFon 03-11-2022 BASO # 0.1 103/ul Normal 0.0-0.1 [facility] Comment on above: Performed By: #### G ELGIN, LIPID #### [facility] [address] [place] [address] Dr. Kenna Thomas Basophils/100 WBC (Bld) 1.1 % Normal 0.2-2.0 [facility] Comment on above: Performed By: #### G ELGIN, LIPID #### [facility] [address] [address] [address] Kenna Thomas EO # 0.6 103/ul Normal 0.0-0.7 [facility] Comment on above: Performed By: #### G ELGIN, LIPID #### [facility] [address] [place] [address] Dr. Kenna Thomas Eosinophils/100 WBC (Bld) 5.3 % Normal 0.9-7.0 [facility] Comment on above: Performed By: #### G ELGIN, LIPID #### [facility] [address] [place] [address] Dr. Kenna Thomas Erythrocyte distribution width (RBC) [Ratio] 12.0 % Normal 11.0-15.0 [facility] Comment on above: Performed By: #### G ELGIN, LIPID #### [facility] [address] [place] [address] Dr. Kenna Thomas Hematocrit (Bld) [Volume fraction] 41.8 % Critically low 42.0-54.0 [facility] Comment on above: Performed By: #### G ELGIN, LIPID #### [facility] [address] [place] [address] Dr. Kenna Thomas Hemoglobin (Bld) [Mass/Vol] 14.7 g/dL Normal 14.0-18.0 [facility] Comment on above: Performed By: #### G ELGIN, LIPID #### [facility] [address] [place] [address] Dr. Kenna Thomas IG # 0.07 10e3/ul Critically high 0.00-0.03 [facility] Comment on above: Performed By: #### G ELGIN, LIPID #### [facility] [address] [place] [address] Dr. Kenna Thomas IG % 0.6 % Critically high 0.0-0.5 [facility] Comment on above: Performed By: #### G ELGIN, LIPID #### [facility] [address] [place] [address] Dr. Kenna Thomas LYMPH # 2.4 103/ul Normal 1.2-3.8 [facility] Comment on above: Performed By: #### G ELGIN, LIPID #### [facility] [address] [place] [address] Dr. Kenna Thomas Lymphocytes/100 WBC (Bld) 21.2 % Normal 20.5-60.0 [facility] Comment on above: Performed By: #### G ELGIN, LIPID #### [facility] [address] [address] [address] Kenna Thomas MANUAL DIFF REQ NO Normal [facility] Comment on above: Performed By: #### G ELGIN, LIPID #### [facility] [address] [address] [address] Kenna Thomas MCH (RBC) [Entitic mass] 33.1 pg Normal 25.9-34.0 [facility] Comment on above: Performed By: #### G ELGIN, LIPID #### [facility] [address] [place] [address] Dr. Kenna Thomas MCHC (RBC) [Mass/Vol] 35.2 g/dL Normal 29.9-35.2 [facility] Comment on above: Performed By: #### G ELGIN, LIPID #### [facility] [address] [place] [address] Dr. Kenna Thomas MCV (RBC) [Entitic vol] 94.1 fL Critically high 80.0-94.0 [facility] Comment on above: Performed By: #### G ELGIN, LIPID #### [facility] [address] [address] [address] Kenna Thomas MONO # 0.9 103/ul Critically high 0.3-0.8 [facility] Comment on above: Performed By: #### G ELGIN, LIPID #### [facility] [address] [place] [address] Dr. Kenna Thomas Monocytes/100 WBC (Bld) 8.3 % Normal 1.7-12.0 [facility] Comment on above: Performed By: #### G ELGIN, LIPID #### [facility] [address] [place] [address] Dr. Kenna Thomas NEUT # 7.1 103/ul Critically high 1.4-6.5 [facility] Comment on above: Performed By: #### G ELGIN, LIPID #### [facility] [address] [address] [address] Kenna Thomas Neutrophils/100 WBC (Bld) 63.5 % Normal 43.0-75.0 [facility] Comment on above: Performed By: #### G ELGIN, LIPID #### [facility] [address] [address] [address] Kenna Thomas Platelet mean volume (Bld) [Entitic vol] 9.9 fL Normal 9.5-13.5 [facility] Comment on above: Performed By: #### G ELGIN, LIPID #### [facility] [address] [address] [address] Kenna Thomas PLT 230 103/ul Normal 150-450 [facility] Comment on above: Performed By: #### G ELGIN, LIPID #### [facility] [address] [place] [address] Dr. Kenna Thomas RBC 4.44 106/ul Critically low 4.70-6.10 [facility] Comment on above: Performed By: #### G ELGIN, LIPID #### [facility] [address] [place] [address] Dr. Kenna Thomas WBC 11.2 103/ul Critically high 4.0-11.0 [facility] Comment on above: Performed By: #### G ELGIN, LIPID #### [facility] [address] [place] [address] Dr. Kenna Thomas LACTATE/LACTIC ACIDon 2021 Lactate [Moles/Vol] 2.0 mmol/L Critically high 0.4-1.9 [facility] Comment on above: Performed By: #### L ACT #### [facility] [address] [place] [address] Dr. Kenna Thomas MAGNESIUMon 03-11-2022 Magnesium [Mass/Vol] 1.7 mg/dL Critically low 1.8-2.4 [facility] Comment on above: Performed By: #### G ELGIN, LIPID #### [facility] [address] [place] [address] Dr. Kenna Thomas PROF 14(COMP METB)on 022 Albumin [Mass/Vol] 3.3 g/dL Critically low 3.4-5.0 [facility] Comment on above: Performed By: #### G ELGIN, LIPID #### [facility] [address] [address] [address] Kenna Thomas Albumin/Globulin [Mass ratio] 0.8 {ratio} Normal [facility] Comment on above: Performed By: #### G ELGIN, LIPID #### [facility] [address] [address] [address] Kenna Thomas ALP [Catalytic activity/Vol] 156 U/L Critically high 46-116 [facility] Comment on above: Performed By: #### G ELGIN, LIPID #### [facility] [address] [address] [address] Kenna Thomas ALT [Catalytic activity/Vol] 28 U/L Normal 16-63 [facility] Comment on above: Performed By: #### G ELGIN, LIPID #### [facility] [address] [address] [address] Kenna Thomas Anion gap [Moles/Vol] 15.0 mmol/L Normal [facility] Comment on above: Performed By: #### G ELGIN, LIPID #### [facility] [address] [place] [address] Dr. Kenna Thomas AST [Catalytic activity/Vol] 20 U/L Normal 15-37 [facility] Comment on above: Performed By: #### G ELGIN, LIPID #### [facility] [address] [address] [address] Kenna Thomas Bilirubin [Mass/Vol] 0.5 mg/dL Normal 0.2-1.0 [facility] Comment on above: Performed By: #### G ELGIN, LIPID #### [facility] [address] [address] [address] Kenna Thomas Calcium [Mass/Vol] 9.0 mg/dL Normal 8.5-10.1 [facility] Comment on above: Performed By: #### G ELGIN, LIPID #### [facility] [address] [address] [address] Kenna Thomas Chloride [Moles/Vol] 100 mmol/L Normal 98-107 [facility] Comment on above: Performed By: #### G ELGIN, LIPID #### [facility] [address] [place] [address] Dr. Kenna Thomas CO2 [Moles/Vol] 25.6 mmol/L Normal 21.0-32.0 [facility] Comment on above: Performed By: #### G ELGIN, LIPID #### [facility] [address] [place] [address] Dr. Kenna Thomas Creatinine [Mass/Vol] 0.83 mg/dL Normal 0.70-1.30 [facility] Comment on above: Performed By: #### G ELGIN, LIPID #### [facility] [address] [place] [address] Dr. Kenna Thomas EGFR-AF GERMAN >60 Normal >=60 [facility] Comment on above: Performed By: #### G ELGIN, LIPID #### [facility] [address] [place] [address] Dr. Kenna Thomas EGFR-NON AF GERMAN >60 Normal >=60 [facility] Comment on above: Performed By: #### G ELGIN, LIPID #### [facility] [address] [place] [address] Dr. Kenna Thomas Globulin (S) [Mass/Vol] 4.0 g/dL Normal [facility] Comment on above: Performed By: #### G ELGIN, LIPID #### [facility] [address] [place] [address] Dr. Kenna Thomas Glucose [Mass/Vol] 170 mg/dL Critically high 74-106 [facility] Comment on above: Performed By: #### G ELGIN, LIPID #### [facility] [address] [place] [address] Dr. Kenna Thomas Potassium [Moles/Vol] 3.6 mmol/L Normal 3.5-5.1 [facility] Comment on above: Performed By: #### G ELGIN, LIPID #### [facility] [address] [place] [address] Dr. Kenna Thomas Protein [Mass/Vol] 7.3 g/dL Normal 6.4-8.2 [facility] Comment on above: Performed By: #### G ELGIN, LIPID #### [facility] [address] [address] [address] Kenna Thomas Sodium [Moles/Vol] 137 mmol/L Normal 136-145 [facility] Comment on above: Performed By: #### G ELGIN, LIPID #### [facility] [address] [address] [address] Kenna Thomas Urea nitrogen [Mass/Vol] 10.0 mg/dL Normal 7.0-18.0 [facility] Comment on above: Performed By: #### G ELGIN, LIPID #### [facility] [address] [address] [address] Kenna Thomas Urea nitrogen/Creatinine [Mass ratio] 12.0 mg/mg Normal [facility] Comment on above: Performed By: #### G ELGIN, LIPID #### [facility] [address] [address] [address] Kenna Thomas GLYCOHEMOGLOBIN A1Con 2021 ADA RECOMMENDATION SEE BELOW Normal [facility] Comment on above: Result Comment: ADA RECOMMENDED LIMIT 4.0 - 6.0 ADA THERAPEUTIC TARGET < 7.0 ACTION SUGGESTED > 7.0 Performed By: #### G ELGIN, LIPID #### [facility] [address] [address] [address] Kenna Thomas Glucose [Mass/Vol] 154 mg/dL Normal [facility] Comment on above: Performed By: #### G ELGIN, LIPID #### [facility] [address] [address] [address] Kenna Thomas HbA1c (Bld) [Mass fraction] 7.0 % Critically high 4.5-6.2 [facility] Comment on above: Performed By: #### G ELGIN, LIPID #### [facility] [address] [place] [address] Dr. Kenna Thomas LIPID PROFILEon 01-09-2022 CHOL-HDL RATIO NORM SEE BELOW Normal [facility] Comment on above: Result Comment: 3.3 - 4.4 LOW RISK 4.4 - 7.1 AVERAGE RISK 7.1 - 11.0 MODERATE RISK >11.0 HIGH RISK Performed By: #### L IPID #### [facility] [address] [address] [address] Kenna Thomas Cholesterol [Mass/Vol] 186 mg/dL Normal <=200 [facility] Comment on above: Performed By: #### L IPID #### [facility] [address] [address] [address] Kenna Thomas Cholesterol in HDL [Mass/Vol] 31 mg/dL Critically low 40-60 [facility] Comment on above: Performed By: #### L IPID #### [facility] [address] [address] [address] Kenna Thomas Cholesterol in LDL [Mass/Vol] 91.2 mg/dL Normal [facility] Comment on above: Performed By: #### L IPID #### [facility] [address] [address] [address] Kenna Thomas Cholesterol.total/Cho lesterol in HDL [Mass ratio] 6.0 {ratio} Normal [facility] Comment on above: Performed By: #### L IPID #### [facility] [address] [address] [address] Kenna Thomas HDL NORMAL > or = 60 mg/dl - LO W CARDIOVASCULAR RISK <40 mg/dl - HIGH CARDIOVASCULAR RISK Normal [facility] Comment on above: Performed By: #### L IPID #### [facility] [address] [address] [address] Kenna Thomas LDL CALC NORMAL SEE BELOW Normal [facility] Comment on above: Result Comment: <100 mg/dl OPTIMAL 100 - 129 mg/dl NEAR OR ABOVE OPTIMAL 130 - 159 mg/dl BORDERLINE HIGH 160 - 189 mg/dl HIGH >190 mg/dl VERY HIGH Performed By: #### L IPID #### [facility] [address] [address] [address] Kenna Thomas Triglyceride [Mass/Vol] 319 mg/dL Critically high <=150 [facility] Comment on above: Performed By: #### L IPID #### [facility] [address] [address] [address] Kenna Thomas VLDL CALC 63.8 mg/dL Normal [facility] Comment on above: Performed By: #### L IPID #### [facility] [address] [address] [address] Kenna Thomas TESTOSTERONE, TOTALon 2021 Testosterone [Mass/Vol] 447 ng/dL Normal 264-916 [facility] Comment on above: Result Comment: Adul t male reference interval is based on a population of healthy nonobese males (BMI <30) between 19 and 39 years old. brady Camacho.al. JCEM 2017,102;6585-2103. PMID: [id number]. Performed By: #### T ESTTOT #### [facility] [address] [address] [address] Kenna Thomas GLUCOSE BLOODon 12-08-2021 Glucose [Mass/Vol] 147 mg/dL Critically high 74-106 [facility] Comment on above: Performed By: #### G ELGIN, LIPID #### [facility] [address] [place] [address] Dr. Kenna Thomas LIPID PROFILEon 12-08-2021 CHOL-HDL RATIO NORM SEE BELOW Normal [facility] Comment on above: Result Comment: 3.3 - 4.4 LOW RISK 4.4 - 7.1 AVERAGE RISK 7.1 - 11.0 MODERATE RISK >11.0 HIGH RISK Performed By: #### G ELGIN, LIPID #### [facility] [address] [address] [address] Kenna Thomas Cholesterol [Mass/Vol] 140 mg/dL Normal <=200 [facility] Comment on above: Performed By: #### G ELGIN, LIPID #### [facility] [address] [address] [address] Kenna Thomas Cholesterol in HDL [Mass/Vol] 33 mg/dL Critically low 40-60 [facility] Comment on above: Performed By: #### G ELGIN, LIPID #### [facility] [address] [address] [address] Kenna Thomas Cholesterol in LDL [Mass/Vol] 55.4 mg/dL Normal [facility] Comment on above: Performed By: #### G ELGIN, LIPID #### [facility] [address] [address] [address] Kenna Thomas Cholesterol.total/Cho lesterol in HDL [Mass ratio] 4.2 {ratio} Normal [facility] Comment on above: Performed By: #### G ELGIN, LIPID #### [facility] [address] [address] [address] Kenna Thomas HDL NORMAL > or = 60 mg/dl - LO W CARDIOVASCULAR RISK <40 mg/dl - HIGH CARDIOVASCULAR RISK Normal [facility] Comment on above: Performed By: #### G ELGIN, LIPID #### [facility] [address] [address] [address] Kenna Thomas LDL CALC NORMAL SEE BELOW Normal [facility] Comment on above: Result Comment: <100 mg/dl OPTIMAL 100 - 129 mg/dl NEAR OR ABOVE OPTIMAL 130 - 159 mg/dl BORDERLINE HIGH 160 - 189 mg/dl HIGH >190 mg/dl VERY HIGH Performed By: #### G ELGIN, LIPID #### [facility] [address] [address] [address] Kenna Thomas Triglyceride [Mass/Vol] 258 mg/dL Critically high <=150 [facility] Comment on above: Performed By: #### G ELGIN, LIPID #### [facility] [address] [address] [address] Kenna Thomas VLDL CALC 51.6 mg/dL Normal [facility] Comment on above: Performed By: #### G ELGIN, LIPID #### [facility] [address] [address] [address] Kenna Thomas Comp Metabolic Profon 2016 (cont.) Normal [facility] Comment on above: Result Comment: Aver age GFR for 40-49 years old: 99 mL/min/1.73sq mChronic Kidney Disease: <60 mL/min/1.73sq mKidney failure: <15 mL/min/1.73sq meGFR calculated using average adult body mass. Additional eGFR calculator available at:http://[email or web address]/multiple_crcl_2011.htmPerformed at [address] [address] Performed By: #### C P ####[address] [address] Alanine aminotransferase (ALT) 27 U/L Normal 5-41 [facility] Comment on above: Performed By: #### C P ####[address] [address] Albumin 3.7 g/dL Normal 3.5-5.2 [facility] Comment on above: Performed By: #### C P ####[address] [address] Albumin/Globulin Ratio 1.1 {ratio} Normal 1.0-2.5 [facility] Comment on above: Performed By: #### C P ####[address] [address] Alkaline Phos 125 U/L Normal 40-129 [facility] Comment on above: Performed By: #### C P ####[address] [address] Anion gap 14 mmol/L Normal 9-17 [facility] Comment on above: Performed By: #### C P ####[address] [address] Aspartate aminotransferase (AST) 20 U/L Normal <40 [facility] Comment on above: Performed By: #### C P ####[address] [address] Bilirubin Ql (U) 0.28 mg/dL Low 0.3-1.2 [facility] Comment on above: Performed By: #### C P ####[address] [address] Calcium 9.0 mg/dL Normal 8.6-10.4 [facility] Comment on above: Performed By: #### C P ####[facility] [place] [address] Chloride 98 mmol/L Normal 98-107 [facility] Comment on above: Performed By: #### C P ####[address] [address] CO2 27 mmol/L Normal 20-31 [facility] Comment on above: Performed By: #### C P ####[address] [address] Creatinine 0.74 mg/dL Normal 0.70-1.20 [facility] Comment on above: Performed By: #### C P ####[address] [address] eGFR (non-black) mL/min/{1.73_m2} Normal >60 [facility] Comment on above: Performed By: #### C P ####[address] [address] Glucose mass conc 142 mg/dL High 70-99 [facility] Comment on above: Performed By: #### C P ####[address] [address] Potassium molar conc 4.2 mmol/L Normal 3.7-5.3 [facility] Comment on above: Performed By: #### C P ####[address] [address] Protein 7.0 g/dL Normal 6.4-8.3 [facility] Comment on above: Performed By: #### C P ####[address] [address] Sodium 139 mmol/L Normal 135-144 [facility] Comment on above: Performed By: #### C P ####[address] [address] Urea nitrogen 9 mg/dL Normal 6-20 [facility] Comment on above: Performed By: #### C P ####[address] [address] BUN/CRE Ratio NOT REPORTED Normal 9-20 [facility] Comment on above: Performed By: #### C P ####[address] [address] Staging: NOT REPORTED Normal [facility] Comment on above: Performed By: #### C P ####[address] [address] Drug Scr, Abuse, Uron 2016 Amphetamine(s),Ur Negative Normal NEG [facility] Comment on above: Result Comment: (Pos itive cutoff 1000 ng/mL) Performed By: #### KOMAL Hays DAU ####[address] [address] Barbiturate(s),Ur Negative Normal NEG [facility] Comment on above: Result Comment: (Pos itive cutoff 200 ng/mL) Performed By: #### U KOMAL Pride DAU ####[address] [address] Base excess Negative Normal NEG [facility] Comment on above: Result Comment: (Pos itive cutoff 300 ng/mL) Performed By: #### U KOMAL Pride DAU ####[address] [address] Benzodiazepine(s) Negative Normal NEG [facility] Comment on above: Result Comment: (Pos itive cutoff 200 ng/mL) Performed By: #### U AKOMAL YAZMIN ####[address] [address] Cannabinoid(s),Ur Negative Normal NEG [facility] Comment on above: Result Comment: (Pos itive cutoff 50 ng/mL) Performed By: #### KOMAL Hays DAU ####[address] [address] Interpretive Info Assay provides medic al screening only. The absence of expected drug(s) and/or Normal [facility] Comment on above: Result Comment: meta bolite(s) may indicate diluted or adulterated urine, limitations of testing or timing of collection.Testing for legal purposes should be confirmed by another method. To request confirmation of test result, please call the lab within 7 days of sample submission.Performed at [facility] [address] [place] [address] Performed By: #### KOMAL Hays DAU ####[address] [address] Opiate(s), Ur Negative Normal NEG [facility] Comment on above: Result Comment: (Pos itive cutoff 300 ng/mL) Performed By: #### KOMAL Hays DAU ####[address] [address] Oxycodone, Urine Negative Normal NEG [facility] Comment on above: Result Comment: (Pos itive cutoff 100 ng/mL) Performed By: #### KOMAL Hays DAU ####[address] [address] Phencyclidine, Ur Negative Normal NEG [facility] Comment on above: Result Comment: (Pos itive cutoff 25 ng/mL) Performed By: #### KOMAL Hays DAU ####[address] [address] Urine, methadone presence Negative Normal NEG [facility] Comment on above: Result Comment: (Pos itive cutoff 300 ng/mL) Performed By: #### KOMAL Hays YAZMIN ####[address] [address] Buprenorphrine, Ur NOT REPORTED Normal NEG [facility] Comment on above: Performed By: #### KOMAL Hays YAZMIN ####[address] [address] MDMA, Urine NOT REPORTED Normal NEG [facility] Comment on above: Performed By: #### KOMAL Hays YAZMIN ####[address] [address] Methamphetamine, Ur NOT REPORTED Normal NEG [facility] Comment on above: Performed By: #### KOMAL Hays YAZMIN ####[address] [address] Propoxyphene,Urine NOT REPORTED Normal NEG [facility] Comment on above: Performed By: #### KOMAL Hays DAU ####[address] [address] Urine, tricyclic antidepressants NOT REPORTED Normal NEG [facility] Comment on above: Performed By: #### KOMAL Hays YAZMIN ####[address] [address] Urinalysis, Routineon 2016 Acetaminophen mass conc Negative Normal NEG [facility] Comment on above: Performed By: #### KOMAL Hays YAZMIN ####[address] [address] Bilirubin (direct) Negative Normal NEG [facility] Comment on above: Performed By: #### KOMAL Hays YAZMIN ####[facility] [facility] [place] [address] Hemoglobin mass conc (Bld) TRACE Abnormal NEG [facility] Comment on above: Performed By: #### U KOMAL Pride, YAZMIN ####[facility] [facility] [place] [address] Nitrite,Ur Negative Normal NEG [facility] Comment on above: Performed By: #### U A, KOMAL, YAZMIN ####[facility] [facility] [place] [address] Turbidity CLEAR Normal CLEAR [facility] Comment on above: Performed By: #### KOMAL Hays, YAZMIN ####[facility] [place] [address], [place] [address] Urine, color YELLOW Normal YEL [facility] Comment on above: Performed By: #### U AKOMAL, YAZMIN ####[facility] [place] [address].[place] [address] Urine, glucose presence Negative Normal NEG [facility] Comment on above: Performed By: #### U AKOMAL, YAZMIN ####[facility] [place] [address], [place] [address] Urine, leukocyte esterase presence Negative Normal NEG [facility] Comment on above: Result Comment: Perf ormed at [facility] [address] [facility] [place] [address] Performed By: #### U AKOMAL, YAZMIN ####[address] [place] [address] Urine, pH 6.0 [pH] Normal 5.0-8.0 [facility] Comment on above: Performed By: #### U AKOMAL, YAZMIN ####[address] [place] [address] Urine, protein presence Negative Normal NEG [facility] Comment on above: Performed By: #### U AKOMAL, YAZMIN ####[address] [address] Urine, specific gravity 1.007 Normal 1.000-1.030 [facility] Comment on above: Performed By: #### U A, UMICAO, YAMZIN ####[address] [address] Urobilinogen,Ur Normal Normal NORM [facility] Comment on above: Performed By: #### U A, UMICAO, YAZMIN ####[address] [address] Comment NOT REPORTED Normal [facility] Comment on above: Performed By: #### U A, UMICAO, YAZMIN ####[address] [address] Urinalysis,Microon 7 ----- Normal [facility] Comment on above: Performed By: #### U A, UMICAO, YAZMIN ####[address] [address] Urine WBC's 0 TO 2 Normal [facility] Comment on above: Performed By: #### U A, UMICAO, YAZMIN ####[address] [place] [address] Urine, bacteria in sediment FEW Abnormal NONE [facility] Comment on above: Result Comment: Perf ormed at [address] [address] Performed By: #### U A, UMICAO, YAZMIN ####[address] [place] [address] Urine, epithelial cells in sediment 0 TO 2 Normal [facility] Comment on above: Performed By: #### KOMAL Hays DAU ####[facility] [facility] [place] [address] Urine, erythrocytes 2 TO 5 Normal [facility] Comment on above: Performed By: #### KOMAL Hays DAU ####[facility] [facility] [place] [address] Epithelial, Renal NOT REPORTED Normal 0 [facility] Comment on above: Performed By: #### KOMAL Hays DAU ####[facility] [place] [address], [place] [address] Mucus Strands NOT REPORTED Normal NONE [facility] Comment on above: Performed By: #### KOMAL Hays DAU ####[facility] [facility] [place] [address] Other Observations NOT REPORTED Normal NREQ [facility] Comment on above: Performed By: #### KOMAL Hays DAU ####[facility] [place] [address], [place] [address] Trichomonas NOT REPORTED Normal NONE [facility] Comment on above: Performed By: #### KOMAL Hays DAU ####[facility] [facility] [place] [address] Urine, amorphous sediment presence in sediment NOT REPORTED Normal NONE [facility] Comment on above: Performed By: #### KOMAL Hays DAU ####[facility] [place] [address], [place] [address] Urine, casts in sediment NOT REPORTED Normal [facility] Comment on above: Performed By: #### KOMAL Hays DAU ####[facility] [facility] [place] [address] Urine, crystals in sediment NOT REPORTED Normal NONE [facility] Comment on above: Performed By: #### KOMAL Hays DAU ####[facility] [place] [address].[place] [address] Urine, yeast presence in sediment NOT REPORTED Normal NONE [facility] Comment on above: Performed By: #### KOMAL Hays DAU ####[address] [address] CBC with Diffon 01-30-2017 Abs. Basophil 0.10 k/uL Normal 0.0-0.2 [facility] Comment on above: Result Comment: Perf ormed at [facility] [address] [place] [address] Performed By: #### C DP, CP ####[facility] [place] [address] Abs.Neutrophil (Seg) 5.40 k/uL Normal 1.3-9.1 [facility] Comment on above: Performed By: #### C DP, CP ####[address] [address] Basophils/100 WBC Auto (Bld) 1 % Normal [facility] Comment on above: Performed By: #### C DP, CP ####[facility] [place] [address] Eosinophils 0.40 10*3/uL Normal 0.0-0.4 [facility] Comment on above: Performed By: #### C DP, CP ####[address] [address] Eosinophils/100 leukocytes 5 % Normal [facility] Comment on above: Performed By: #### C DP, CP ####[facility] [place] [address] Erythrocyte distribution width Auto Ratio (RBC) 13.0 % Normal 11.5-14.9 [facility] Comment on above: Performed By: #### C DP, CP ####[facility] [place] [address] [place] [address] Erythrocytes (RBC) 4.26 10*6/uL Low 4.5-5.9 [facility] Comment on above: Performed By: #### C DP, CP ####[address] [place] [address] Hematocrit (HCT) 42.3 % Normal 41-53 [facility] Comment on above: Performed By: #### C DP, CP ####[address] [place] [address] Hemoglobin mass conc (Bld) 14.5 g/dL Normal 13.5-17.5 [facility] Comment on above: Performed By: #### C DP, CP ####[address] [place] [address] Lymphocytes 2.20 10*3/uL Normal 1.0-4.8 [facility] Comment on above: Performed By: #### C DP, CP ####[place] [address] [place] [address] Lymphocytes/100 leukocytes 25 % Normal [facility] Comment on above: Performed By: #### C DP, CP ####[address] [place] [address] MCH 34.0 pg Normal 26-34 [facility] Comment on above: Performed By: #### C DP, CP ####[address] [place] [address] MCHC mass conc (RBC) 34.2 g/dL Normal 31-37 [facility] Comment on above: Performed By: #### C DP, CP ####[facility] [place] [address] MCV 99.3 fL Normal 80-100 [facility] Comment on above: Performed By: #### C DP, CP ####[facility] [place] [address] Monocytes 0.60 10*3/uL Normal 0.1-1.3 [facility] Comment on above: Performed By: #### C DP, CP ####[address] [address] Monocytes/100 leukocytes 7 % Normal [facility] Comment on above: Performed By: #### C DP, CP ####[facility] [place] [address] Neutrophil (Seg) 62 % Normal [facility] Comment on above: Performed By: #### C DP, CP ####[address] [address] Platelet mean volume (PMV) 9.1 fL Normal 6.0-12.0 [facility] Comment on above: Performed By: #### C DP, CP ####[facility] [place] [address] Platelets 225 10*3/uL Normal 150-450 [facility] Comment on above: Performed By: #### C DP, CP ####[address] [address] WBC (Leukocytes) 8.7 10*3/uL Normal 3.5-11.0 [facility] Comment on above: Performed By: #### C DP, CP ####[facility] [facility] [place] [address] Auto Diff Performed NOT REPORTED Normal [facility] Comment on above: Performed By: #### C DP, CP ####[facility] [facility] [place] [address] Erythrocyte morphology NOT REPORTED Normal [facility] Comment on above: Performed By: #### C DP, CP ####[address] [place] [address] Platelets NOT REPORTED Normal [facility] Comment on above: Performed By: #### C DP, CP ####[address] [place] [address] WBC Morphology NOT REPORTED Normal [facility] Comment on above: Performed By: #### C DP, CP ####[address] [place] [address] Comp Metabolic Profon 2016 (cont.) Normal [facility] Comment on above: Result Comment: Aver age GFR for 40-49 years old: 99 mL/min/1.73sq mChronic Kidney Disease: <60 mL/min/1.73sq mKidney failure: <15 mL/min/1.73sq meGFR calculated using average adult body mass. Additional eGFR calculator available at:[email or web address]_[email or web address] at [facility] [address] [place] [address] Performed By: #### C DP, CP ####[address] [place] [address] Alanine aminotransferase (ALT) 20 U/L Normal 5-41 [facility] Comment on above: Performed By: #### C DP, CP ####[address] [place] [address] Albumin 3.3 g/dL Low 3.5-5.2 [facility] Comment on above: Performed By: #### C DP, CP ####[facility] [place] [address] Alkaline Phos 120 U/L Normal 40-129 [facility] Comment on above: Performed By: #### C DP, CP ####[facility] [place] [address] Anion gap 12 mmol/L Normal 9-17 [facility] Comment on above: Performed By: #### C DP, CP ####[facility] [place] [address] Aspartate aminotransferase (AST) 26 U/L Normal <40 [facility] Comment on above: Performed By: #### C DP, CP ####[facility] [place] [address] Bilirubin Ql (U) 0.29 mg/dL Low 0.3-1.2 [facility] Comment on above: Performed By: #### C DP, CP ####[facility] [place] [address] Calcium 8.4 mg/dL Low 8.6-10.4 [facility] Comment on above: Performed By: #### C DP, CP ####[facility] [place] [address] Chloride 104 mmol/L Normal 98-107 [facility] Comment on above: Performed By: #### C DP, CP ####[facility] [place] [address] CO2 27 mmol/L Normal 20-31 [facility] Comment on above: Performed By: #### C DP, CP ####[facility] [facility] [place] [address] Creatinine 0.70 mg/dL Normal 0.70-1.20 [facility] Comment on above: Performed By: #### C DP, CP ####[facility] [place] [address].[place] [address] eGFR (non-black) mL/min/{1.73_m2} Normal >60 [facility] Comment on above: Performed By: #### C DP, CP ####[facility] [place] [address].[place] [address] Glucose mass conc 117 mg/dL High 70-99 [facility] Comment on above: Performed By: #### C DP, CP ####[facility] [place] [address] Potassium molar conc 3.1 mmol/L Low 3.7-5.3 [facility] Comment on above: Performed By: #### C DP, CP ####[address] [address] Protein 6.2 g/dL Low 6.4-8.3 [facility] Comment on above: Performed By: #### C DP, CP ####[facility] [place] [address].[place] [address] Sodium 143 mmol/L Normal 135-144 [facility] Comment on above: Performed By: #### C DP, CP ####[address] [place] [address] Urea nitrogen 5 mg/dL Low 6-20 [facility] Comment on above: Performed By: #### C DP, CP ####[facility] [place] [address] Albumin/Globulin Ratio NOT REPORTED Normal 1.0-2.5 [facility] Comment on above: Performed By: #### C DP, CP ####[facility] [facility] [place] [address] BUN/CRE Ratio NOT REPORTED Normal 9-20 [facility] Comment on above: Performed By: #### C DP, CP ####[facility] [facility] [place] [address] Staging: NOT REPORTED Normal [facility] Comment on above: Performed By: #### C DP, CP ####[facility] [facility] [place] [address] Vital Signs Date Time Vital Sign Value Performing Clinician Ryan feliz 11-15-2022 14:53-0400 Blood Pressure Location YU REBECCA [facility] 11-15-2022 14:53-0400 Diastolic blood pressure 74 mm[Hg] YU REBECCA [facility] 11-15-2022 14:53-0400 Heart rate 68 /min YU REBECCA [facility] 11-15-2022 14:53-0400 Respiratory rate 16 /min YU REBECCA [facility] 11-15-2022 14:53-0400 Systolic blood pressure 138 mm[Hg] YU REBECCA [facility] 01-17-2022 10:08-0400 Blood Pressure Location Tee Almendarez Jr. [facility] 01-17-2022 10:08-0400 Diastolic blood pressure 79 mm[Hg] Tee Almendarez Jr. [facility] 01-17-2022 10:08-0400 Heart rate 81 /min Tee Almendarez Jr. [facility] 01-17-2022 10:08-0400 Respiratory rate 16 /min Tee Almendarez Jr. [facility] 01-17-2022 10:08-0400 Systolic blood pressure 138 mm[Hg] Tee Almendarez Jr. [facility] 11-15-2021 09:32-0400 Blood Pressure Location Tee Almendarez Jr. [facility] 11-15-2021 09:32-0400 Diastolic blood pressure 76 mm[Hg] Tee Almendarez Jr. [facility] 11-15-2021 09:32-0400 Heart rate 97 /min Tee Almendarez Jr. [facility] 11-15-2021 09:32-0400 Respiratory rate 18 /min Tee Almendarez Jr. [facility] 11-15-2021 09:32-0400 Systolic blood pressure 112 mm[Hg] Tee Almendarez Jr. [facility] Encounters Encounter Date Encounter Type Care Provider Facility Start: 11-20-2023 [facility] Start: 08-06-2023 End: 08-06-2023 ambulatory STONE FAWWAD Not Available Start: 06-26-2023 End: 06-26-2023 ambulatory STONE FAWWAD Not Available Start: 06-12-2023 ambulatory Kota Carvalho acility:[facility] Start: 11-24-2022 End: 11-25-2022 ambulatory STONE H FAWWAD Facility:[facility] Start: 11-15-2022 End: 11-16-2022 ambulatory YU Estefani FERNANDEZ Facility:[facility] Start: 11-15-2022 End: 11-15-2022 Patient encounter procedure UY FERNANDEZ [facility] Start: 04-18-2022 End: 04-19-2022 ambulatory STONE H FAWWAD Facility:[facility] Start: 03-24-2022 End: 03-24-2022 ambulatory STONE H FAWWAD Facility:[facility] Start: 03-11-2022 End: 03-11-2022 ambulatory STONE H FAWWAD Facility:[facility] Start: 02-16-2022 ambulatory STONE H FAWWAD Facilit y:[facility] Start: 01-17-2022 End: 01-17-2022 Patient encounter procedure Tee Almendarez Jr. [facility] Start: 01-09-2022 End: 01-10-2022 ambulatory STONE H FAWWAD Facility:[facility] Start: 12-08-2021 End: 12-09-[address] TEE Lopez Facility:[facility] Start: 11-15-2021 End: 11-15-2021 Patient encounter procedure Tee Almendarez Jr. [facility] Start: 04-28-2021 End: 05-04-2021 ambulatory UNKNOWN PROVIDER Facility:[facility] Start: 01-29-2017 End: 02-05-2017 Evaluation and management of inpatient SUSAN PIERRE [facility] Procedures Date Procedure Procedure Detail Performing Clinician Start: 02-05-2017 DISCHARGE PATIENT SUSAN BHARDWAJ Start: 02-03-2017 COMPREHENSIVE METABO LIC PANEL SUSAN PIERRE Start: 02-03-2017 Microscopic urinalysis SUSAN PIERRE Start: 02-03-2017 Urinalysis SUSAN PIERRE Start: 02-03-2017 URINE DRUG SCREEN SUSAN BHARDWAJ Start: 01-30-2017 CBC WITH AUTO DIFFERENTIAL SUSAN PIERRE Start: 01-30-2017 COMPREHENSIVE METABO LIC PANEL SUSAN PIERRE Start: 01-29-2017 FULL CODE SUSAN PIERRE Start: 01-29-2017 IP CONSULT TO HISTOR Y AND PHYSICAL SUSAN PIERRE Start: 01-29-2017 PATIENT STATUS (DIRECT) SUSAN PIERRE Start: 01-29-2017 DIET GENERAL SUSAN PIERRE None (qualifier value) Kwame Almendarez Jr. Immunizations Immunization Date Immunization Notes Care Provider Fa cility 01-01-2021 SARS-CoV-2 (COVID-19 ) mRNA BNT-162b2 mehdi FERNANDEZ [facility] Comment on above: Result Comment: 2022: [id number] 12-11-2020 SARS-CoV-2 (COVID-19 ) mRNA BNT-162b2 mehdi FERNANDEZ [facility] Comment on above: Result Comment: 2022: [id number] Payers Date Payer Category Payer Self-pay 2021 Unknown [id number] 2016 Medicare [id number] 1970 Unknown [id number] 2.16. [id number] 1972 Unknown [id number] 2.16.84 [id number] 1972 Unknown [id number] 2.16.84 [id number] 1972 Unknown [id number] 2.16.84 [id number] 1972 Unknown [id number] 2.16.84 [id number] 1972 Unknown [id number] 2.16.84 [id number] 1972 Unknown [id number] 2.16.84 [id number] 1972 Unknown [id number] 2.16.84 [id number] 1972 Unknown [id number] 2.16.84 [id number] 1972 Unknown [id number] 2.16.8 [id number] 1972 Unknown [id number] 2.16.8 [id number] 1972 Unknown [id number] 2.16.84 [id number] 1972 Unknown [id number] 2.16.840 .[id number] 1957 Medicare [id number] Unknown [id number] 2.16.8 [id number] Social History Date Type Detail Facility Tobacco Current, Cigaret yao, 40 per day. [facility] Sex Assigned At Male [facility] Start: 01-17-2022 End: 11-15-2022 Tobacco smoking status Heavy tobacco smoker (finding) [facility] Functional Status Date Assessment Result Facility 11-15-2022 Functional Status N/A [facility] 01-17-2022 Functional Status N/A [facility] Hospital Discharge instructions 11-15-2022 Note Date & Type Note Facility 11-15-2022 Hospital Discharg e instructions Patient Education 11/15/2022 15:31:04 Erectile Dysfunction Erectile Dysfunction Erectile dysfunction (ED) is the inability to get or keep an erection in order to have sexual intercourse. ED is considered a symptom of an underlying disorder and is not considered a disease. ED may include: Inability to get an erection. Lack of enough hardness of the erection to allow penetration. Loss of erection before sex is finished. What are the causes? This condition may be caused by: Physical causes, such as: ?Artery problems. This may include heart disease, high blood pressure, atherosclerosis, and diabetes. ?Hormonal problems, such as low testosterone. ?Obesity. ?Nerve problems. This may include back or pelvic injuries, multiple sclerosis, Parkinson's disease, spinal cord injury, and stroke. Certain medicines, such as: ?Pain relievers. ?Antidepressants. ?Blood pressure medicines and water pills (diuretics). ?Cancer medicines. ?Antihistamines. ?Muscle relaxants. Lifestyle factors, such as: ?Use of drugs such as marijuana, cocaine, or opioids. ?Excessive use of alcohol. ?Smoking. ?Lack of physical activity or exercise. Psychological causes, such as: ?Anxiety or stress. ?Sadness or depression. ?Exhaustion. ?Fear about sexual performance. ?Guilt. What are the signs or symptoms? Symptoms of this condition include: Inability to get an erection. Lack of enough hardness of the erection to allow penetration. Loss of the erection before sex is finished. Sometimes having normal erections, but with frequent unsatisfactory episodes. Low sexual satisfaction in either partner due to erection problems. A curved penis occurring with erection. The curve may cause pain, or the penis may be too curved to allow for intercourse. Never having nighttime or morning erections. How is this diagnosed? This condition is often diagnosed by: Performing a physical exam to find other diseases or specific problems with the penis. Asking you detailed questions about the problem. Doing tests, such as: ?Blood tests to check for diabetes mellitus or high cholesterol, or to measure hormone levels. ?Other tests to check for underlying health conditions. ?An ultrasound exam to check for scarring. ?A test to check blood flow to the penis. Doing a sleep study at home to measure nighttime erections. How is this treated? This condition may be treated by: Medicines, such as: ?Medicine taken by mouth to help you achieve an erection (oral medicine). ?Hormone replacement therapy to replace low testosterone levels. ?Medicine that is injected into the penis. Your health care provider may instruct you how to give yourself these injections at home. ?Medicine that is delivered with a short applicator tube. The tube is inserted into the opening at the tip of the penis, which is the opening of the urethra. A tiny pellet of medicine is put in the urethra. The pellet dissolves and enhances erectile function. This is also called MUSE (medicated urethral system for erections) therapy. Vacuum pump. This is a pump with a ring on it. The pump and ring are placed on the penis and used to create pressure that helps the penis become erect. Penile implant surgery. In this procedure, you may receive: ?An inflatable implant. This consists of cylinders, a pump, and a reservoir. The cylinders can be inflated with a fluid that helps to create an erection, and they can be deflated after intercourse. ?A semi-rigid implant. This consists of two silicone rubber rods. The rods provide some rigidity. They are also flexible, so the penis can both curve downward in its normal position and become straight for sexual intercourse. Blood vessel surgery to improve blood flow to the penis. During this procedure, a blood vessel from a different part of the body is placed into the penis to allow blood to flow around (bypass) damaged or blocked blood vessels. Lifestyle changes, such as exercising more, losing weight, and quitting smoking. Follow these instructions at home: Medicines Take wdit-bed-mgaxduq and prescription medicines only as told by your health care provider. Do not increase the dosage without first discussing it with your health care provider. If you are using self-injections, do injections as directed by your health care provider. Make sure you avoid any veins that are on the surface of the penis. After giving an injection, apply pressure to the injection site for 5 minutes. Talk to your health care provider about how to prevent headaches while taking ED medicines. These medicines may cause a sudden headache due to the increase in blood flow in your body. General instructions Exercise regularly, as directed by your health care provider. Work with your health care provider to lose weight, if needed. Do not use any products that contain nicotine or tobacco. These products include cigarettes, chewing tobacco, and vaping devices, such as e-cigarettes. If you need help quitting, ask your health care provider. Before using a vacuum pump, read the instructions that come with the pump and discuss any questions with your health care provider. Keep all follow-up visits. This is important. Contact a health care provider if: You feel nauseous. You are vomiting. You get sudden headaches while taking ED medicines. You have any concerns about your sexual health. Get help right away if: You are taking oral or injectable medicines and you have an erection that lasts longer than 4 hours. If your health care provider is unavailable, go to the nearest emergency room for evaluation. An erection that lasts much longer than 4 hours can result in permanent damage to your penis. You have severe pain in your groin or abdomen. You develop redness or severe swelling of your penis. You have redness spreading at your groin or lower abdomen. You are unable to urinate. You experience chest pain or a rapid heartbeat (palpitations) after taking oral medicines. These symptoms may represent a serious problem that is an emergency. Do not wait to see if the symptoms will go away. Get medical help right away. Call your local emergency services (911 in the [place] Do not drive yourself to the hospital. Summary Erectile dysfunction (ED) is the inability to get or keep an erection during sexual intercourse. This condition is diagnosed based on a physical exam, your symptoms, and tests to determine the cause. Treatment varies depending on the cause and may include medicines, hormone therapy, surgery, or a vacuum pump. You may need follow-up visits to make sure that you are using your medicines or devices correctly. Get help right away if you are taking or injecting medicines and you have an erection that lasts longer than 4 hours. This information is not intended to replace advice given to you by your health care provider. Make sure you discuss any questions you have with your health care provider. Document Revised: 09/28/2021 Document Reviewed: 09/28/2021 [employer] Patient Education 2022 [place] [address]. Follow Up Care 10/31/2022 09:47:32 With:YU FERNANDEZ PA-C, URL Address: [address] [place] [address] When: Unknown [facility] Discharge instructions 01-17-2022 Note Date & Type Note Facility 01-17-2022 Hospital Discharg e instructions Patient Education 01/17/2022 11:36:40 Erectile Dysfunction Erectile Dysfunction Erectile dysfunction (ED) is the inability to get or keep an erection in order to have sexual intercourse. Erectile dysfunction may include: Inability to get an erection. Lack of enough hardness of the erection to allow penetration. Loss of the erection before sex is finished. What are the causes? This condition may be caused by: Certain medicines, such as: ?Pain relievers. ?Antihistamines. ?Antidepressants. ?Blood pressure medicines. ?Water pills (diuretics). ?Ulcer medicines. ?Muscle relaxants. ?Drugs. Excessive drinking. Psychological causes, such as: ?Anxiety. ?Depression. ?Sadness. ?Exhaustion. ?Performance fear. ?Stress. Physical causes, such as: ?Artery problems. This may include diabetes, smoking, liver disease, or atherosclerosis. ?High blood pressure. ?Hormonal problems, such as low testosterone. ?Obesity. ?Nerve problems. This may include back or pelvic injuries, diabetes mellitus, multiple sclerosis, or Parkinson disease. What are the signs or symptoms? Symptoms of this condition include: Inability to get an erection. Lack of enough hardness of the erection to allow penetration. Loss of the erection before sex is finished. Normal erections at some times, but with frequent unsatisfactory episodes. Low sexual satisfaction in either partner due to erection problems. A curved penis occurring with erection. The curve may cause pain or the penis may be too curved to allow for intercourse. Never having nighttime erections. How is this diagnosed? This condition is often diagnosed by: Performing a physical exam to find other diseases or specific problems with the penis. Asking you detailed questions about the problem. Performing blood tests to check for diabetes mellitus or to measure hormone levels. Performing other tests to check for underlying health conditions. Performing an ultrasound exam to check for scarring. Performing a test to check blood flow to the penis. Doing a sleep study at home to measure nighttime erections. How is this treated? This condition may be treated by: Medicine taken by mouth to help you achieve an erection (oral medicine). Hormone replacement therapy to replace low testosterone levels. Medicine that is injected into the penis. Your health care provider may instruct you how to give yourself these injections at home. Vacuum pump. This is a pump with a ring on it. The pump and ring are placed on the penis and used to create pressure that helps the penis become erect. Penile implant surgery. In this procedure, you may receive: ?An inflatable implant. This consists of cylinders, a pump, and a reservoir. The cylinders can be inflated with a fluid that helps to create an erection, and they can be deflated after intercourse. ?A semi-rigid implant. This consists of two silicone rubber rods. The rods provide some rigidity. They are also flexible, so the penis can both curve downward in its normal position and become straight for sexual intercourse. Blood vessel surgery, to improve blood flow to the penis. During this procedure, a blood vessel from a different part of the body is placed into the penis to allow blood to flow around (bypass) damaged or blocked blood vessels. Lifestyle changes, such as exercising more, losing weight, and quitting smoking. Follow these instructions at home: Medicines Take mhjj-icc-[id number] and prescription medicines only as told by your health care provider. Do not increase the dosage without first discussing it with your health care provider. If you are using self-injections, perform injections as directed by your health care provider. Make sure to avoid any veins that are on the surface of the penis. After giving an injection, apply pressure to the injection site for 5 minutes. General instructions Exercise regularly, as directed by your health care provider. Work with your health care provider to lose weight, if needed. Do not use any products that contain nicotine or tobacco, such as cigarettes and e-cigarettes. If you need help quitting, ask your health care provider. Before using a vacuum pump, read the instructions that come with the pump and discuss any questions with your health care provider. Keep all follow-up visits as told by your health care provider. This is important. Contact a health care provider if: You feel nauseous. You vomit. Get help right away if: You are taking oral or injectable medicines and you have an erection that lasts longer than 4 hours. If your health care provider is unavailable, go to the nearest emergency room for evaluation. An erection that lasts much longer than 4 hours can result in permanent damage to your penis. You have severe pain in your groin or abdomen. You develop redness or severe swelling of your penis. You have redness spreading up into your groin or lower abdomen. You are unable to urinate. You experience chest pain or a rapid heart beat (palpitations) after taking oral medicines. Summary Erectile dysfunction (ED) is the inability to get or keep an erection during sexual intercourse. This problem can usually be treated successfully. This condition is diagnosed based on a physical exam, your symptoms, and tests to determine the cause. Treatment varies depending on the cause, and may include medicines, hormone therapy, surgery, or vacuum pump. You may need follow-up visits to make sure that you are using your medicines or devices correctly. Get help right away if you are taking or injecting medicines and you have an erection that lasts longer than 4 hours. This information is not intended to replace advice given to you by your health care provider. Make sure you discuss any questions you have with your health care provider. Document Released: 06/29/2001 Document Revised: 06/14/2018 Document Reviewed: 07/18/2017 [employer] Patient Education 2020 [address]. Follow Up Care 11/15/2021 10:33:52 With:Erickson Brooks MD, Tee Brush URO Address: [facility] [address] , [place] [phone]- [phone] When:02/28/2022 [facility] Discharge instructions 11-15-2021 Note Date & Type Note Facility 11-15-2021 Hospital Discharg e instructions Patient Education 11/15/2021 10:23:37 Erectile Dysfunction Erectile Dysfunction Erectile dysfunction (ED) is the inability to get or keep an erection in order to have sexual intercourse. Erectile dysfunction may include: Inability to get an erection. Lack of enough hardness of the erection to allow penetration. Loss of the erection before sex is finished. What are the causes? This condition may be caused by: Certain medicines, such as: ?Pain relievers. ?Antihistamines. ?Antidepressants. ?Blood pressure medicines. ?Water pills (diuretics). ?Ulcer medicines. ?Muscle relaxants. ?Drugs. Excessive drinking. Psychological causes, such as: ?Anxiety. ?Depression. ?Sadness. ?Exhaustion. ?Performance fear. ?Stress. Physical causes, such as: ?Artery problems. This may include diabetes, smoking, liver disease, or atherosclerosis. ?High blood pressure. ?Hormonal problems, such as low testosterone. ?Obesity. ?Nerve problems. This may include back or pelvic injuries, diabetes mellitus, multiple sclerosis, or Parkinson disease. What are the signs or symptoms? Symptoms of this condition include: Inability to get an erection. Lack of enough hardness of the erection to allow penetration. Loss of the erection before sex is finished. Normal erections at some times, but with frequent unsatisfactory episodes. Low sexual satisfaction in either partner due to erection problems. A curved penis occurring with erection. The curve may cause pain or the penis may be too curved to allow for intercourse. Never having nighttime erections. How is this diagnosed? This condition is often diagnosed by: Performing a physical exam to find other diseases or specific problems with the penis. Asking you detailed questions about the problem. Performing blood tests to check for diabetes mellitus or to measure hormone levels. Performing other tests to check for underlying health conditions. Performing an ultrasound exam to check for scarring. Performing a test to check blood flow to the penis. Doing a sleep study at home to measure nighttime erections. How is this treated? This condition may be treated by: Medicine taken by mouth to help you achieve an erection (oral medicine). Hormone replacement therapy to replace low testosterone levels. Medicine that is injected into the penis. Your health care provider may instruct you how to give yourself these injections at home. Vacuum pump. This is a pump with a ring on it. The pump and ring are placed on the penis and used to create pressure that helps the penis become erect. Penile implant surgery. In this procedure, you may receive: ?An inflatable implant. This consists of cylinders, a pump, and a reservoir. The cylinders can be inflated with a fluid that helps to create an erection, and they can be deflated after intercourse. ?A semi-rigid implant. This consists of two silicone rubber rods. The rods provide some rigidity. They are also flexible, so the penis can both curve downward in its normal position and become straight for sexual intercourse. Blood vessel surgery, to improve blood flow to the penis. During this procedure, a blood vessel from a different part of the body is placed into the penis to allow blood to flow around (bypass) damaged or blocked blood vessels. Lifestyle changes, such as exercising more, losing weight, and quitting smoking. Follow these instructions at home: Medicines Take ulre-dtk-mfqxbzx and prescription medicines only as told by your health care provider. Do not increase the dosage without first discussing it with your health care provider. If you are using self-injections, perform injections as directed by your health care provider. Make sure to avoid any veins that are on the surface of the penis. After giving an injection, apply pressure to the injection site for 5 minutes. General instructions Exercise regularly, as directed by your health care provider. Work with your health care provider to lose weight, if needed. Do not use any products that contain nicotine or tobacco, such as cigarettes and e-cigarettes. If you need help quitting, ask your health care provider. Before using a vacuum pump, read the instructions that come with the pump and discuss any questions with your health care provider. Keep all follow-up visits as told by your health care provider. This is important. Contact a health care provider if: You feel nauseous. You vomit. Get help right away if: You are taking oral or injectable medicines and you have an erection that lasts longer than 4 hours. If your health care provider is unavailable, go to the nearest emergency room for evaluation. An erection that lasts much longer than 4 hours can result in permanent damage to your penis. You have severe pain in your groin or abdomen. You develop redness or severe swelling of your penis. You have redness spreading up into your groin or lower abdomen. You are unable to urinate. You experience chest pain or a rapid heart beat (palpitations) after taking oral medicines. Summary Erectile dysfunction (ED) is the inability to get or keep an erection during sexual intercourse. This problem can usually be treated successfully. This condition is diagnosed based on a physical exam, your symptoms, and tests to determine the cause. Treatment varies depending on the cause, and may include medicines, hormone therapy, surgery, or vacuum pump. You may need follow-up visits to make sure that you are using your medicines or devices correctly. Get help right away if you are taking or injecting medicines and you have an erection that lasts longer than 4 hours. This information is not intended to replace advice given to you by your health care provider. Make sure you discuss any questions you have with your health care provider. Document Released: 06/29/2001 Document Revised: 06/14/2018 Document Reviewed: 07/18/2017 [employer] Patient Education 2020 [address]. Follow Up Care 08/23/2021 10:12:56 With:Erickson Brooks MD, Tee Brush, URO Address: [facility] [address], [place] [address]- When:01/15/2022 [facility] Evaluation + Plan note Note Date & Type Note Facility Evaluation + Plan note Future Appointments Appointment Date:01/17/2022 09:45:00 AM Scheduled Provider:Tee Almendarez Jr., MD Location:[facility] Appointment Type:URO Office Visit Diagnostic Tests PendingTestosterone Level Total 11/15/21 [facility] Evaluation + Plan note Note Date & Type Note Facility Evaluation + Plan note Future Appointments Appointment Date:03/07/2022 08:45:00 AM Scheduled Provider:Tee Almendarez Jr., MD Location:[facility] Appointment Type:URO Office Visit [facility] Evaluation + Plan note Note Date & Type Note Facility Evaluation + Plan note Future Appointments Appointment Date:11/20/2023 09:00:00 AM Scheduled Provider:YU FERNANDEZ PA-C Location:[facility] Appointment Type:URO Office Visit [facility] Hospital course Narrative Note Date & Type Note Facility Hospital course Narrative No data available for this section [facility] Progress note Note Date & Type Note Facility Progress note No data available for this section [facility] Summary Purpose Family History No Family History Records FoundNo Family History Records FoundNo Family History Records FoundNo Family History Records FoundNo Family History Records FoundNo Family History Records Found Advance Directives No Advanced Directives Records FoundNo Advanced Directives Records FoundNo Advanced Directives Records FoundNo Advanced Directives Records FoundNo Advanced Directives Records FoundNo Advanced Directives Records Found Additional Source Comments (unrecognized sect ion and content) No Status Records FoundNo Status Records FoundNo Status Records FoundNo Status Records FoundNo Status Records FoundNo Status Records Found INFORMATION SOURCE (unrecogn ized section and content) DATE CREATED AUTHOR 01/09/2018 [facility] DATE CREATED AUTHOR AUTHOR'S ORGANIZ ATION 05/06/2021 [facility] DATE CREATED AUTHOR AUTHOR'S ORGANIZ ATION 11/27/2022 [facility] DATE CREATED AUTHOR AUTHOR'S ORGANIZ ATION 07/25/2023 [facility] DATE CREATED AUTHOR AUTHOR'S ORGANIZ ATION 08/06/2023 [facility] EPIC DATE CREATED AUTHOR AUTHOR'S ORGANIZ ATION 08/15/2023 [facility] Care Team (unrecognized sect ion and content) Personnel Name: BRIANAZARA STONE Address: [address] [place], [place] [address] [address] [place] Name: Terri Brito Personnel Name: BRIANAZARA STONE Address: Address: [facility] [address] [place] [address] [place] Name: Terri Brito FOR RECORDS PERTAINING TO PATIENTS WHO ARE OR HAVE BEEN ENROLLED IN A CHEMICAL DEPENDENCY/SUBSTANCEABUSE PROGRAM, SOME INFORMATION MAY BE OMITTED. This clinical summary was aggregated from multiple sources. Caution should be exercised in using it in the provision of clinical care. This summary normalizes information from multiple sources, and as a consequence, information in this document may materially change the coding, format and clinical context of patient data. In addition, data may be omitted in some cases. CLINICAL DECISIONS SHOULD BE BASED ON THE PRIMARY CLINICAL RECORDS. [facility]. provides no warranty or guarantee of the accuracy or completeness of information in this document.
[2023-09-24 07:43] LABS: Estimated Average Glucose 200 mg/dL; Glycohemoglobin A1C 8.6 % (4.5-6.2)
== END 2023-09-24 06:39 | disposition home or self-care (01) ==
LOC: LAB 06:40
PROVIDERS: PCP Internal Medicine; Visit Provider Internal Medicine
DX: Z79.4 Long term (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 of insulin (principal); E11.9 Type 2 diabetes mellitus without complications
CPT/HCPCS: 36415; 83036

== ENCOUNTER 2023-11-28 08:14 | Outpatient (OUT) | payer MEDICARE, SELFPAY ==
--- OUTSIDE RECORDS SUMMARY | 2023-11-28 08:22 | XMS_ITS | CCD ---
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 Name Role Phone PIERRE, KUL B Unavailable Unavailable PIERRE, KUL B Unavailable Unavailable PROVIDER, UNKNOWN Attending Unavailable PROVIDER, UNKNOWN Admitting Unavailable JUAN LUISWHIEND, STONE Primary Care Physician Terri Brito Unavailable [...] Care Unavailable LISA, DR JUNITO Galvan Admitting Unavailmaite GONZALEZ, DR JUNITO Galvan Attending Unavailabl estefani GONZALEZ, DR JUNITO Galvan Consulting Unavailabl e SHANE NATH Admitting Unavailable SPROUT, SHANE Attending Unavailable SHAIKH Axel SIMS Primary Care Unavailable SHANE NATH Consulting Unavailable LEVI, Primary Care Unavailable YU FERNANDEZ Attending Unavailable YU FERNANDEZ Attending Unavailable LEVI, Primary Care Unavailable LEVI, Attending Unavailable LEVI, Attending Unavailable SHAIKH SIMS Attending Unavailable LEVI, Attending Unavailable TYRESE TRUJILLO Attending Unavailable TYRESE TRUJILLO Referring Unavailable Kota Pozo Attending Unavailab Kota Cox Admitting Unavailab Bam Chin Primary Care Unavailable Allergies Allergy Classification Reported Allergen(s) Allergy Type Date of Onset Reaction(s) Facility (1 source) Shellfish Drug allergy (disorder) 03-15-2017 [facility] Medications Current Medications Medication Drug Class(es) [...] BID, # 60 tab(s), Refills(s) 0, [facility] Date: 04/11/21 Status: Ordered Lantus (3 [...] dysfunction., # 30 tab(s), Refills(s) 3, Pharmacy: [facility], 170, cm, 11/15/21 9:38:00 EDT, Height/Length Dosing, 116.6, kg, 11/15/21 9:38:00 EDT, Weight Dosing Start Date: 11/15/21 Status: Ordered 60 actuat testosterone 20.25 mg/actuat topical gel (2 sources) Androgen Start: 08-23-2021 AndroGel Pump 20.25 mg/1.25 g (1.62%) transdermal gel = 2 pump, Topical, qAM, # 75 gram, Refills(s) 1, Pharmacy: [facility], 170, cm, 07/05/21 10:18:00 EST, Height/Length Dosing, 170, kg, 08/23/21 9:37:00 EST, Weight Dosing Start Date: 08/23/21 Status: Ordered vardenafil 20 mg oral tablet (1 source) Phosphodiesterase 5 Inhibitor Start: 01-17-2022 take 1 tablet by mouth once daily as needed Levitra 20 mg Tab 20 mg = 1 tab(s), Oral, Daily, PRN for erectile dysfunction, # 30 tab(s), Refills(s) 1, Pharmacy: [facility], 170, cm, 01/17/22 10:42:00 EDT, Height/Length Dosing, [...] 03-24-2022 Episodic Other aftercare (5 sources) Other longterm (current) drug therapy; Translations: [OTH CUSTODIAL CURRENT DRUG THERAPY] Onset: 12-08-2021 Episodic Other aftercare (1 source) [facility] (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 of insulin; 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 Kenna Thomas Basophils/100 WBC (Bld) 1.1 % Normal 0.2-2.0 [facility] Comment on above: Performed By: #### C BC #### [facility] [address] [address] [address] Kenna Thomas EO # 0.4 103/ul Normal 0.0-0.7 [facility] Comment on above: Performed By: #### C BC #### [facility] [address] [address] [address] Kenna Thomas Eosinophils/100 WBC (Bld) 4.6 % Normal 0.9-7.0 [facility] Comment on above: Performed By: #### C BC #### [facility] [address] [address] [address] Kenna Thomas Erythrocyte distribution width (RBC) [Ratio] 11.5 % Normal 11.0-15.0 [facility] Comment on above: Performed By: #### C BC #### [facility] [address] [address] [address] Kenna Thomas Hematocrit (Bld) [Volume fraction] 44.3 % Normal 42.0-54.0 [facility] Comment on above: Performed By: #### C BC #### [facility] [address] [address] [address] Kenna Thomas Hemoglobin (Bld) [Mass/Vol] 15.8 g/dL Normal 14.0-18.0 [facility] Comment on above: Performed By: #### C BC #### [facility] [address] [address] [address] Kenna Thomas IG # 0.03 10e3/ul Normal 0.00-0.03 [facility] Comment on above: Performed By: #### C BC #### [facility] [address] [place] [address] Dr. Kenna Thomas IG % 0.4 % Normal 0.0-0.5 [facility] Comment on above: Performed By: #### C BC #### [facility] [address] [place] [address] Dr. Kenna Thomas LYMPH # 1.8 103/ul Normal 1.2-3.8 [facility] Comment on above: Performed By: #### C BC #### [facility] [address] [place] [address] Dr. Kenna Thomas Lymphocytes/100 WBC (Bld) 23.3 % Normal 20.5-60.0 [facility] Comment on above: Performed By: #### C BC #### [facility] [address] [place] [address] Dr. Kenna Thomas MANUAL DIFF REQ NO Normal [facility] Comment on above: Performed By: #### C BC #### [facility] [address] [place] [address] Dr. Kenna Thomas MCH (RBC) [Entitic mass] 34.1 pg Critically high 25.9-34.0 [facility] Comment on above: Performed By: #### C BC #### [facility] [address] [place] [address] Dr. Kenna Thomas MCHC (RBC) [Mass/Vol] 35.7 g/dL Critically high 29.9-35.2 [facility] Comment on above: Performed By: #### C BC #### [facility] [address] [place] [address] Dr. Kenna Thomas MCV (RBC) [Entitic vol] 95.5 fL Critically high 80.0-94.0 [facility] Comment on above: Performed By: #### C BC #### [facility] [address] [place] [address] Dr. Kenna Thomas MONO # 0.7 103/ul Normal 0.3-0.8 [facility] Comment on above: Performed By: #### C BC #### [facility] [address] [address] [address] Kenna Thomas Monocytes/100 WBC (Bld) 8.4 % Normal 1.7-12.0 [facility] Comment on above: Performed By: #### C BC #### [facility] [address] [address] [address] Kenna Thomas NEUT # 4.9 103/ul Normal 1.4-6.5 [facility] Comment on above: Performed By: #### C BC #### [facility] [address] [address] [address] Kenna Thomas Neutrophils/100 WBC (Bld) 62.2 % Normal 43.0-75.0 [facility] Comment on above: Performed By: #### C BC #### [facility] [address] [place] [address] Dr. Kenna Thomas Platelet mean volume (Bld) [Entitic vol] 9.6 fL Normal 9.5-13.5 [facility] Comment on above: Performed By: #### C BC #### [facility] [address] [place] [address] Dr. Kenna Thomas PLT 251 103/ul Normal 150-450 [facility] Comment on above: Performed By: #### C BC #### [facility] [address] [place] [address] Dr. Kenna Thomas RBC 4.64 106/ul Critically low 4.70-6.10 [facility] Comment on above: Performed By: #### C BC #### [facility] [address] [place] [address] Dr. Kenna Thomas WBC 7.9 103/ul Normal 4.0-11.0 [facility] Comment on above: Performed By: #### C BC #### [facility] [address] [place] [address] Dr. Kenna Thomas GLYCOHEMOGLOBIN A1Con 2022 ADA RECOMMENDATION SEE BELOW Normal [facility] Comment on above: Result Comment: ADA RECOMMENDED LIMIT 4.0 - 6.0 ADA THERAPEUTIC TARGET < 7.0 ACTION SUGGESTED > 7.0 Performed By: #### G ELGIN, LIPID #### [facility] [address] [address] [address] Kenna Thomas Glucose [Mass/Vol] 171 mg/dL Normal [facility] Comment on above: Performed By: #### G ELGIN, LIPID #### [facility] [address] [address] [address] Kenna Thomas HbA1c (Bld) [Mass fraction] 7.6 % Critically high 4.5-6.2 [facility] Comment on above: Performed By: #### G ELGIN, LIPID #### [facility] [address] [place] [address] Dr. Kenna Thomas PROF 14(COMP METB)on 023 Albumin [Mass/Vol] 3.4 g/dL Normal 3.4-5.0 [facility] Comment on above: Performed By: #### C MP #### [facility] [address] [place] [address] Dr. Kenna Thomas Albumin/Globulin [Mass ratio] 0.7 {ratio} Normal [facility] Comment on above: Performed By: #### C MP #### [facility] [address] [place] [address] Dr. Kenna Thomas ALP [Catalytic activity/Vol] 166 U/L Critically high 46-116 [facility] Comment on above: Performed By: #### C MP #### [facility] [address] [address] [address] Kenna Thomas ALT [Catalytic activity/Vol] 46 U/L Normal 16-63 [facility] Comment on above: Performed By: #### C MP #### [facility] [address] [address] [address] Kenna Thomas Anion gap [Moles/Vol] 12.2 mmol/L Normal [facility] Comment on above: Performed By: #### C MP #### [facility] [address] [place] [address] Dr. Kenna Thomas AST [Catalytic activity/Vol] 33 U/L Normal 15-37 [facility] Comment on above: Performed By: #### C MP #### [facility] [address] [address] [address] Kenna Thomas Bilirubin [Mass/Vol] 0.3 mg/dL Normal 0.2-1.0 [facility] Comment on above: Performed By: #### C MP #### [facility] [address] [address] [address] Kenna Thomas Calcium [Mass/Vol] 9.6 mg/dL Normal 8.5-10.1 [facility] Comment on above: Performed By: #### C MP #### [facility] [address] [address] [address] Kenna Thomas Chloride [Moles/Vol] 99 mmol/L Normal 98-107 [facility] Comment on above: Performed By: #### C MP #### [facility] [address] [place] [address] Dr. Kenna Thomas CO2 [Moles/Vol] 30.4 mmol/L Normal 21.0-32.0 [facility] Comment on above: Performed By: #### C MP #### [facility] [address] [place] [address] Dr. Kenna Thomas Creatinine [Mass/Vol] 1.01 mg/dL Normal 0.70-1.30 [facility] Comment on above: Performed By: #### C MP #### [facility] [address] [place] [address] Dr. Kenna Thomas EGFR-AF SAMMARINESE >60 Normal >=60 [facility] Comment on above: Performed By: #### C MP #### [facility] [address] [place] [address] Dr. Kenna Thomas EGFR-NON AF SAMMARINESE >60 Normal >=60 [facility] Comment on above: Performed By: #### C MP #### [facility] [address] [place] [address] Dr. Kenna Thomas Globulin (S) [Mass/Vol] 5.2 g/dL Normal [facility] Comment on above: Performed By: #### C MP #### [facility] [address] [place] [address] Dr. Kenna Thomas Glucose [Mass/Vol] 208 mg/dL Critically high 74-106 [facility] Comment on above: Performed By: #### C MP #### [facility] [address] [address] [address] Kenna Thomas Potassium [Moles/Vol] 4.6 mmol/L Normal 3.5-5.1 [facility] Comment on above: Performed By: #### C MP #### [facility] [address] [address] [address] Kenna Thomas Protein [Mass/Vol] 8.6 g/dL Critically high 6.4-8.2 [facility] Comment on above: Performed By: #### C MP #### [facility] [address] [place] [address] Dr. Kenna Thomas Sodium [Moles/Vol] 137 mmol/L Normal 136-145 [facility] Comment on above: Performed By: #### C MP #### [facility] [address] [address] [address] Kenna Thomas Urea nitrogen [Mass/Vol] 7.0 mg/dL Normal 7.0-18.0 [facility] Comment on above: Performed By: #### C MP #### [facility] [address] [place] [address] Dr. Kenna Thomas Urea nitrogen/Creatinine [Mass ratio] 6.9 mg/mg Normal [facility] Comment on above: Performed By: #### C MP #### [facility] [address] [address] [address] Kenna Thomas VIT B12 AND FOLATEon 023 Cobalamin (Vitamin B12) [Mass/Vol] 841.0 pg/mL Normal 193.0-986.0 [facility] Comment on above: Performed By: #### B 12FOL #### [facility] [address] [place] [address] Dr. Kenna Thomas FOLATE 17.30 ng/mL Normal 8.60-58.90 [facility] Comment on above: Performed By: #### B 12FOL #### [facility] [address] [place] [address] Dr. Kenna Thomas Screenson 11-16-2022 Screens [id number] Normal [facility] Ambulatory Visit Summaryon 0 11-15-2022 Ambulatory Visit Summary JOHNNY HAMILTON :1970 Visit Date:11/15/2022 Ambulatory Visit Instructions Your Diagnosis ED (erectile dysfunction) Fecal incontinence Tests Performed Urnls Dip Stick Auto w/o Microscopy POC 74177 Your Care Team Attending Physician - YU [...] YU FERNANDEZ PA-C Where: [facility] Patient Educationon 11-16-19 Patient Education Urology Erectile [...] these instructions at home: Medicines ? Take [id number] and prescription medicines only as told by [...] include cig (more content not included)... Normal [facility] Urology Office/Clinic Noteon 11-15-2022 Urology Office/Clinic Note Chief Complaint Urination w/Erection HPI Staff Former MEETA pt here today.Pt last seen in our office 01/17/22 by MEETA due to Hypogonadism, ED & Nocturia. Pt [...] E&M of Est. Patient Moderate 30-39 Min 40116 2. ED (erectile dysfunction) (N52.1: Erectile dysfunction due to diseases classified elsewhere) Has tried Cialis and Viagra in the past without noticeable improvement. Never started Levitra, was cost prohibitive. Discussed ICI including process, risks/benefits. Pt wishes to think about ICI before proceeding. Unable to achieve true erection for 20+ years. Ordered: E&M of Est. Patient Moderate 30-39 Min 08594 Urnls Dip Stick Auto w/o Microscopy POC 71729 3. Fecal incontinence (R15.9: Full incontinence of feces) Sometimes loses control of bowels. No pain with this. no urinary incontinence. recommended he see GI. says his PCP already has a referral in place for this. Ordered: E&M of Est. Patient Moderate 30-39 Min 57520 Follow-up With When Contact Information REBECCA OLIVEIRA, UY Huang, URL [address] [place] [address] Additional Instructions: 1 yr to readdress ED [...] Glucose Urin (more content not included)... Normal [facility] Comment on above: Result Comment: Elec tronically Signed By: YU FERNANDEZ PA-C\.br\Date and Time Signed: 11/15/22 18:16 EDT\.br\Electronically Co-Signed By: Leonie Marie\.br\Date and Time Co-Signed: 11/15/22 15:50 EDT GLYCOHEMOGLOBIN A1Con 2021 ADA RECOMMENDATION SEE BELOW Normal [facility] Comment on above: Result Comment: ADA RECOMMENDED LIMIT 4.0 - 6.0 ADA THERAPEUTIC TARGET < 7.0 ACTION SUGGESTED > 7.0 Performed By: #### A 1C #### [facility] [address] [address] [address] Kenna Thomas Glucose [Mass/Vol] 148 mg/dL Normal [facility] Comment on above: Performed By: #### A 1C #### [facility] [address] [address] [address] Kenna Thomas HbA1c (Bld) [Mass fraction] 6.8 % Critically high 4.5-6.2 [facility] Comment on above: Performed By: #### A 1C #### [facility] [address] [address] [address] Kenna Thomas CBC AUTO DIFFon 03-24-2022 BASO # 0.1 103/ul Normal 0.0-0.1 [facility] Comment on above: Performed By: #### G ELGIN, LIPID #### [facility] [address] [place] [address] Dr. Kenna Thomas Basophils/100 WBC (Bld) 1.0 % Normal 0.2-2.0 [facility] Comment on above: Performed By: #### G ELGIN, LIPID #### [facility] [address] [place] [address] Dr. Kenna Thomas EO # 0.5 103/ul Normal 0.0-0.7 [facility] Comment on above: Performed By: #### G ELGIN, LIPID #### [facility] [address] [place] [address] Dr. Kenna Thomas Eosinophils/100 WBC (Bld) 4.0 % Normal 0.9-7.0 [facility] Comment on above: Performed By: #### G ELGIN, LIPID #### [facility] [address] [place] [address] Dr. Kenna Thomas Erythrocyte distribution width (RBC) [Ratio] 12.3 % Normal 11.0-15.0 [facility] Comment on above: Performed By: #### G ELGIN, LIPID #### [facility] [address] [place] [address] Dr. Kenna Thomas Hematocrit (Bld) [Volume fraction] 40.5 % Critically low 42.0-54.0 [facility] Comment on above: Performed By: #### G ELGIN, LIPID #### [facility] [address] [place] [address] Dr. Kenna Thomas Hemoglobin (Bld) [Mass/Vol] 14.4 g/dL Normal 14.0-18.0 [facility] Comment on above: Performed By: #### G ELGIN, LIPID #### [facility] [address] [place] [address] Dr. Kenna Thomas IG # 0.05 10e3/ul Critically high 0.00-0.03 [facility] Comment on above: Performed By: #### G ELGIN, LIPID #### [facility] [address] [place] [address] Dr. Kenna Thomas IG % 0.4 % Normal 0.0-0.5 [facility] Comment on above: Performed By: #### G ELGIN, LIPID #### [facility] [address] [address] [address] Kenna Thomas LYMPH # 3.0 103/ul Normal 1.2-3.8 [facility] Comment on above: Performed By: #### G ELGIN, LIPID #### [facility] [address] [address] [address] Kenna Thomas Lymphocytes/100 WBC (Bld) 24.6 % Normal 20.5-60.0 [facility] Comment on above: Performed By: #### G ELGIN, LIPID #### [facility] [address] [address] [address] Kenna Thomas MANUAL DIFF REQ NO Normal [facility] Comment on above: Performed By: #### G ELGIN, LIPID #### [facility] [address] [address] [address] Kenna Thomas MCH (RBC) [Entitic mass] 34.0 pg Normal 25.9-34.0 [facility] Comment on above: Performed By: #### G ELGIN, LIPID #### [facility] [address] [address] [address] Kenna Thomas MCHC (RBC) [Mass/Vol] 35.6 g/dL Critically high 29.9-35.2 [facility] Comment on above: Performed By: #### G ELGIN, LIPID #### [facility] [address] [address] [address] Kenna Thomas MCV (RBC) [Entitic vol] 95.7 fL Critically high 80.0-94.0 [facility] Comment on above: Performed By: #### G ELGIN, LIPID #### [facility] [address] [address] [address] Kenna Thomas MONO # 0.9 103/ul Critically high 0.3-0.8 [facility] Comment on above: Performed By: #### G ELGIN, LIPID #### [facility] [address] [place] [address] Dr. Kenna Thomas Monocytes/100 WBC (Bld) 7.6 % Normal 1.7-12.0 [facility] Comment on above: Performed By: #### G ELGIN, LIPID #### [facility] [address] [address] [address] Kenna Thomas NEUT # 7.5 103/ul Critically high 1.4-6.5 [facility] Comment on above: Performed By: #### G ELGIN, LIPID #### [facility] [address] [address] [address] Kenna Thomas Neutrophils/100 WBC (Bld) 62.4 % Normal 43.0-75.0 [facility] Comment on above: Performed By: #### G ELGIN, LIPID #### [facility] [address] [address] [address] Kenna Thomas Platelet mean volume (Bld) [Entitic vol] 10.5 fL Normal 9.5-13.5 [facility] Comment on above: Performed By: #### G ELGIN, LIPID #### [facility] [address] [address] [address] Kenna Thomas PLT 219 103/ul Normal 150-450 [facility] Comment on above: Performed By: #### G ELGIN, LIPID #### [facility] [address] [address] [address] Kenna Thomas RBC 4.23 106/ul Critically low 4.70-6.10 [facility] Comment on above: Performed By: #### G ELGIN, LIPID #### [facility] [address] [address] [address] Kenna Thomas WBC 12.0 103/ul Critically high 4.0-11.0 [facility] Comment on above: Performed By: #### G ELGIN, LIPID #### [facility] [address] [address] [address] Kenna Thomas PROF 14(COMP METB)on 022 Albumin [Mass/Vol] 3.2 g/dL Critically low 3.4-5.0 [facility] Comment on above: Performed By: #### C MP #### [facility] [address] [place] [address] Dr. Kenna Thomas Albumin/Globulin [Mass ratio] 0.8 {ratio} Normal [facility] Comment on above: Performed By: #### C MP #### [facility] [address] [address] [address] Kenna Thomas ALP [Catalytic activity/Vol] 167 U/L Critically high 46-116 [facility] Comment on above: Performed By: #### C MP #### [facility] [address] [address] [address] Kenna Thomas ALT [Catalytic activity/Vol] 30 U/L Normal 16-63 [facility] Comment on above: Performed By: #### C MP #### [facility] [address] [address] [address] Kenna Thomas Anion gap [Moles/Vol] 12.0 mmol/L Normal [facility] Comment on above: Performed By: #### C MP #### [facility] [address] [address] [address] Kenna Thomas AST [Catalytic activity/Vol] 12 U/L Critically low 15-37 [facility] Comment on above: Performed By: #### C MP #### [facility] [address] [address] [address] Kenna Thomas Bilirubin [Mass/Vol] 0.2 mg/dL Normal 0.2-1.0 [facility] Comment on above: Performed By: #### C MP #### [facility] [address] [address] [address] Kenna Thomas Calcium [Mass/Vol] 8.2 mg/dL Critically low 8.5-10.1 [facility] Comment on above: Performed By: #### C MP #### [facility] [address] [address] [address] Kenna Thomas Chloride [Moles/Vol] 102 mmol/L Normal 98-107 [facility] Comment on above: Performed By: #### C MP #### [facility] [address] [address] [address] Kenna Thomas CO2 [Moles/Vol] 24.3 mmol/L Normal 21.0-32.0 [facility] Comment on above: Performed By: #### C MP #### [facility] [address] [address] [address] Kenna Thomas Creatinine [Mass/Vol] 1.03 mg/dL Normal 0.70-1.30 [facility] Comment on above: Performed By: #### C MP #### [facility] [address] [address] [address] Kenna Thomas EGFR-AF SAMMARINESE >60 Normal >=60 [facility] Comment on above: Performed By: #### C MP #### [facility] [address] [address] [address] Kenna Thomas EGFR-NON AF SAMMARINESE >60 Normal >=60 [facility] Comment on above: Performed By: #### C MP #### [facility] [address] [address] [address] Kenna Thomas Globulin (S) [Mass/Vol] 3.8 g/dL Normal [facility] Comment on above: Performed By: #### C MP #### [facility] [address] [address] [address] Kenna Thomas Glucose [Mass/Vol] 258 mg/dL Critically high 74-106 [facility] Comment on above: Performed By: #### C MP #### [facility] [address] [address] [address] Kenna Thomas Potassium [Moles/Vol] 3.3 mmol/L Critically low 3.5-5.1 [facility] Comment on above: Performed By: #### C MP #### [facility] [address] [address] [address] Kenna Thomas Protein [Mass/Vol] 7.0 g/dL Normal 6.4-8.2 [facility] Comment on above: Performed By: #### C MP #### [facility] [address] [address] [address] Kenna Thomas Sodium [Moles/Vol] 135 mmol/L Critically low 136-145 Th [facility] Comment on above: Performed By: #### C MP #### [facility] [address] [address] [address] Kenna Thomas Urea nitrogen [Mass/Vol] 8.0 mg/dL Normal 7.0-18.0 [facility] Comment on above: Performed By: #### C MP #### [facility] [address] [address] [address] Kenna Thomas Urea nitrogen/Creatinine [Mass ratio] 7.8 mg/mg Normal [facility] Comment on above: Performed By: #### C MP #### [facility] [address] [address] [address] Kenna Thomas XR ABD FLAT UP_PA [...] PERICO DIAMOND Date: 2022-03-24 01:01 Normal [facility] CBC AUTO DIFFon 03-11-2022 BASO # 0.1 103/ul Normal 0.0-0.1 [facility] Comment on above: Performed By: #### G ELGIN, LIPID #### [facility] [address] [address] [address] Kenna Thomas Basophils/100 WBC (Bld) 1.1 % Normal 0.2-2.0 [facility] Comment on above: Performed By: #### G ELGIN, LIPID #### [facility] [address] [address] [address] Kenna Thomas EO # 0.6 103/ul Normal 0.0-0.7 [facility] Comment on above: Performed By: #### G ELGIN, LIPID #### [facility] [address] [address] [address] Kenna Thomas Eosinophils/100 WBC (Bld) 5.3 % Normal 0.9-7.0 [facility] Comment on above: Performed By: #### G ELGIN, LIPID #### [facility] [address] [place] [address] Dr. Kenna Thomas Erythrocyte distribution width (RBC) [Ratio] 12.0 % Normal 11.0-15.0 [facility] Comment on above: Performed By: #### G ELGIN, LIPID #### [facility] [address] [place] [address] Dr. Kenna Thomas Hematocrit (Bld) [Volume fraction] 41.8 % Critically low 42.0-54.0 [facility] Comment on above: Performed By: #### G ELGIN, LIPID #### [facility] [address] [place] [address] Dr. Kenna Thomas Hemoglobin (Bld) [Mass/Vol] 14.7 g/dL Normal 14.0-18.0 [facility] Comment on above: Performed By: #### G ELGIN, LIPID #### [facility] [address] [place] [address] Dr. Kenna Thomas IG # 0.07 10e3/ul Critically high 0.00-0.[address] [facility] Comment on above: Performed By: #### G ELGIN, LIPID #### [facility] [address] [place] [address] Dr. Kenna Thomas IG % 0.6 % Critically high 0.0-0.5 [facility] Comment on above: Performed By: #### G ELGIN, LIPID #### [facility] [address] [place] [address] Dr. Kenna Thomas LYMPH # 2.4 103/ul Normal 1.2-3.8 [facility] Comment on above: Performed By: #### G ELGIN, LIPID #### [facility] [address] [address] [address] Kenna Thomas Lymphocytes/100 WBC (Bld) 21.2 % Normal 20.5-60.0 [facility] Comment on above: Performed By: #### G ELGIN, LIPID #### [facility] [address] [address] [address] Kenna Thomas MANUAL DIFF REQ NO Normal [facility] Comment on above: Performed By: #### G EGLIN, LIPID #### [facility] [address] [place] [address] Dr. Kenna Thomas MCH (RBC) [Entitic mass] 33.1 pg Normal 25.9-34.0 [facility] Comment on above: Performed By: #### G ELGIN, LIPID #### [facility] [address] [place] [address] Dr. Kenna Thomas MCHC (RBC) [Mass/Vol] 35.2 g/dL Normal 29.9-35.2 [facility] Comment on above: Performed By: #### G ELGIN, LIPID #### [facility] [address] [place] [address] Dr. Kenna Thomas MCV (RBC) [Entitic vol] 94.1 fL Critically high 80.0-94.0 [facility] Comment on above: Performed By: #### G ELGIN, LIPID #### [facility] [address] [place] [address] Dr. Kenna Thomas MONO # 0.9 103/ul Critically high 0.3-0.8 [facility] Comment on above: Performed By: #### G ELGIN, LIPID #### [facility] [address] [place] [address] Dr. Kenna Thomas Monocytes/100 WBC (Bld) 8.3 % Normal 1.7-12.0 [facility] Comment on above: Performed By: #### G ELGIN, LIPID #### [facility] [address] [place] [address] Dr. Kenna Thomas NEUT # 7.1 103/ul Critically high 1.4-6.5 [facility] Comment on above: Performed By: #### G ELGIN, LIPID #### [facility] [address] [address] [address] Kenna Thomas Neutrophils/100 WBC (Bld) 63.5 % Normal 43.0-75.0 [facility] Comment on above: Performed By: #### G ELGIN, LIPID #### [facility] [address] [address] [address] Kenna Thomas Platelet mean volume (Bld) [Entitic vol] 9.9 fL Normal 9.5-13.5 [facility] Comment on above: Performed By: #### G ELGIN, LIPID #### [facility] [address] [address] [address] Kenna Thomas PLT 230 103/ul Normal 150-450 [facility] Comment on above: Performed By: #### G ELGIN, LIPID #### [facility] [address] [place] [address] Dr. Kenna Thomas RBC 4.44 106/ul Critically low 4.70-6.10 [facility] Comment on above: Performed By: #### G ELGIN, LIPID #### [facility] [address] [address] [address] Kenna Thomas WBC 11.2 103/ul Critically high 4.0-11.0 [facility] Comment on above: Performed By: #### G ELGIN, LIPID #### [facility] [address] [address] [address] Kenna Thomas LACTATE/LACTIC ACIDon 2021 Lactate [Moles/Vol] 2.0 mmol/L Critically high 0.4-1.9 [facility] Comment on above: Performed By: #### L ACT #### [facility] [address] [address] [address] Kenna Thomas MAGNESIUMon 03-11-2022 Magnesium [Mass/Vol] 1.7 mg/dL Critically low 1.8-2.4 [facility] Comment on above: Performed By: #### G ELGIN, LIPID #### [facility] [address] [address] [address] Kenna Thomas PROF 14(COMP METB)on 022 Albumin [Mass/Vol] 3.3 g/dL Critically low 3.4-5.0 [facility] Comment on above: Performed By: #### G ELGIN, LIPID #### [facility] [address] [place] [address] Dr. Kenna Thomas Albumin/Globulin [Mass ratio] 0.8 {ratio} Normal [facility] Comment on above: Performed By: #### G ELGIN, LIPID #### [facility] [address] [address] [address] Kenna Thomas ALP [Catalytic activity/Vol] 156 U/L Critically high 46-116 [facility] Comment on above: Performed By: #### G ELGIN, LIPID #### [facility] [address] [place] [address] Dr. Kenna Thomas ALT [Catalytic activity/Vol] 28 U/L Normal 16-63 [facility] Comment on above: Performed By: #### G ELGIN, LIPID #### [facility] [address] [place] [address] Dr. Kenna Thomas Anion gap [Moles/Vol] 15.0 mmol/L Normal [facility] Comment on above: Performed By: #### G ELGIN, LIPID #### [facility] [address] [place] [address] Dr. Kenna Thomas AST [Catalytic activity/Vol] 20 U/L Normal 15-37 [facility] Comment on above: Performed By: #### G ELGIN, LIPID #### [facility] [address] [place] [address] Dr. Kenna Thomas Bilirubin [Mass/Vol] 0.5 mg/dL Normal 0.2-1.0 [facility] Comment on above: Performed By: #### G ELGIN, LIPID #### [facility] [address] [place] [address] Dr. Kenna Thomas Calcium [Mass/Vol] 9.0 mg/dL Normal 8.5-10.1 [facility] Comment on above: Performed By: #### G ELGIN, LIPID #### [facility] [address] [place] [address] Dr. Kenna Thomas Chloride [Moles/Vol] 100 mmol/L Normal 98-107 [facility] Comment on above: Performed By: #### G ELGIN, LIPID #### [facility] [address] [address] [address] Kenna Thomas CO2 [Moles/Vol] 25.6 mmol/L Normal 21.0-32.0 [facility] Comment on above: Performed By: #### G ELGIN, LIPID #### [facility] [address] [address] [address] Kenna Thomas Creatinine [Mass/Vol] 0.83 mg/dL Normal 0.70-1.30 [facility] Comment on above: Performed By: #### G ELGIN, LIPID #### [facility] [address] [place] [address] Dr. Kenna Thomas EGFR-AF SAMMARINESE >60 Normal >=60 [facility] Comment on above: Performed By: #### G ELGIN, LIPID #### [facility] [address] [place] [address] Dr. Kenna Thomas EGFR-NON AF SAMMARINESE >60 Normal >=60 [facility] Comment on above: Performed By: #### G ELGIN, LIPID #### [facility] [address] [place] [address] Dr. Kenna Thoams Globulin (S) [Mass/Vol] 4.0 g/dL Normal [facility] Comment on above: Performed By: #### G ELGIN, LIPID #### [facility] [address] [place] [address] Dr. Kenna Thomas Glucose [Mass/Vol] 170 mg/dL Critically high 74-106 T [facility] Comment on above: Performed By: #### G ELGIN, LIPID #### [facility] [address] [place] [address] Dr. Kenna Thomas Potassium [Moles/Vol] 3.6 mmol/L Normal 3.5-5.1 [facility] Comment on above: Performed By: #### G ELGIN, LIPID #### [facility] [address] [place] [address] Dr. Kenna Thomas Protein [Mass/Vol] 7.3 g/dL Normal 6.4-8.2 [facility] Comment on above: Performed By: #### G ELGIN, LIPID #### [facility] [address] [address] [address] Kenna Thomas Sodium [Moles/Vol] 137 mmol/L Normal 136-145 [facility] Comment on above: Performed By: #### G ELGIN, LIPID #### [facility] [address] [address] [address] Kenna Thomas Urea nitrogen [Mass/Vol] 10.0 mg/dL Normal 7.0-18.0 [facility] Comment on above: Performed By: #### G ELGIN, LIPID #### [facility] [address] [address] [address] Kenna Thomas Urea nitrogen/Creatinine [Mass ratio] 12.0 mg/mg Normal [facility] Comment on above: Performed By: #### G ELGIN, LIPID #### [facility] [address] [address] [address] Kenna Thomas GLYCOHEMOGLOBIN A1Con 2021 ADA RECOMMENDATION SEE BELOW Normal [facility] Comment on above: Result Comment: ADA RECOMMENDED LIMIT 4.0 - 6.0 ADA THERAPEUTIC TARGET < 7.0 ACTION SUGGESTED > 7.0 Performed By: #### G ELGIN, LIPID #### [facility] [address] [place] [address] Dr. Kenna Thomas Glucose [Mass/Vol] 154 mg/dL Normal [facility] Comment on above: Performed By: #### G ELGIN, LIPID #### [facility] [address] [place] [address] Dr. Kenna Thomas HbA1c (Bld) [Mass fraction] 7.0 % Critically high 4.5-6.2 [facility] Comment on above: Performed By: #### G ELGIN, LIPID #### [facility] [address] [place] [address] Dr. Kenna Thomas LIPID PROFILEon 01-09-2022 CHOL-HDL RATIO NORM SEE BELOW Normal [facility] Comment on above: Result Comment: 3.3 - 4.4 LOW RISK 4.4 - 7.1 AVERAGE RISK 7.1 - 11.0 MODERATE RISK >11.0 HIGH RISK Performed By: #### L IPID #### [facility] [address] [address] [address] Kenna Thomas Cholesterol [Mass/Vol] 186 mg/dL Normal <=200 [facility] Comment on above: Performed By: #### L IPID #### [facility] [address] [address] [address] Kenna Thomas Cholesterol in HDL [Mass/Vol] 31 mg/dL Critically low 40-60 [facility] Comment on above: Performed By: #### L IPID #### [facility] [address] [place] [address] Dr. Kenna Thomas Cholesterol in LDL [Mass/Vol] 91.2 mg/dL Normal [facility] Comment on above: Performed By: #### L IPID #### [facility] [address] [place] [address] Dr. Kenna Thomas Cholesterol.total/Cho lesterol in HDL [Mass ratio] 6.0 {ratio} Normal [facility] Comment on above: Performed By: #### L IPID #### [facility] [address] [place] [address] Dr. Kenna Thomas HDL NORMAL > or = 60 mg/dl - LO W CARDIOVASCULAR RISK <40 mg/dl - HIGH CARDIOVASCULAR RISK Normal [facility] Comment on above: Performed By: #### L IPID #### [facility] [address] [place] [address] Dr. Kenna Thomas LDL CALC NORMAL SEE BELOW Normal [facility] Comment on above: Result Comment: <100 mg/dl OPTIMAL 100 - 129 mg/dl NEAR OR ABOVE OPTIMAL 130 - 159 mg/dl BORDERLINE HIGH 160 - 189 mg/dl HIGH >190 mg/dl VERY HIGH Performed By: #### L IPID #### [facility] [address] [place] [address] Dr. Kenna Thomas Triglyceride [Mass/Vol] 319 mg/dL Critically high <=150 [facility] Comment on above: Performed By: #### L IPID #### [facility] [address] [address] [address] Kenna Thomas VLDL CALC 63.8 mg/dL Normal [facility] Comment on above: Performed By: #### L IPID #### [facility] [address] [address] [address] Kenna Thomas TESTOSTERONE, TOTALon 2021 Testosterone [Mass/Vol] 447 ng/dL Normal 264-916 [facility] Comment on above: Result Comment: Adul t male reference interval is based on a population of healthy nonobese males (BMI <30) between 19 and 39 years old. Doug et.al. JCEM 2017,102;2566-9551. PMID: [id number]. Performed By: #### T ESTTOT #### [facility] [address] [place] [address] Dr. Kenna Thomas GLUCOSE BLOODon 12-08-2021 Glucose [Mass/Vol] 147 mg/dL Critically high 74-106 [facility] Comment on above: Performed By: #### G ELGIN, LIPID #### [facility] [address] [place] [address] Dr. Kenna Thomas LIPID PROFILEon 12-08-2021 CHOL-HDL RATIO NORM SEE BELOW Normal [facility] Comment on above: Result Comment: 3.3 - 4.4 LOW RISK 4.4 - 7.1 AVERAGE RISK 7.1 - 11.0 MODERATE RISK >11.0 HIGH RISK Performed By: #### G ELGIN, LIPID #### [facility] [address] [address] [address] Kenna Thomas Cholesterol [Mass/Vol] 140 mg/dL Normal <=200 [facility] Comment on above: Performed By: #### G ELGIN, LIPID #### [facility] [address] [address] [address] Kenna Thomas Cholesterol in HDL [Mass/Vol] 33 mg/dL Critically low 40-60 [facility] Comment on above: Performed By: #### G ELGIN, LIPID #### [facility] [address] [address] [address] Kenna Thomas Cholesterol in LDL [Mass/Vol] 55.4 mg/dL Normal [facility] Comment on above: Performed By: #### G ELGIN, LIPID #### [facility] [address] [address] [address] Kenna Thomas Cholesterol.total/Cho lesterol in HDL [Mass ratio] 4.2 {ratio} Normal [facility] Comment on above: Performed By: #### G ELGIN, LIPID #### [facility] [address] [address] [address] Kenna Thomas HDL NORMAL > or = 60 mg/dl - LO W CARDIOVASCULAR RISK <40 mg/dl - HIGH CARDIOVASCULAR RISK Normal [facility] Comment on above: Performed By: #### G ELGIN, LIPID #### [facility] [address] [address] [address] Kenna Thomas LDL CALC NORMAL SEE BELOW Normal [facility] Comment on above: Result Comment: <100 mg/dl OPTIMAL 100 - 129 mg/dl NEAR OR ABOVE OPTIMAL 130 - 159 mg/dl BORDERLINE HIGH 160 - 189 mg/dl HIGH >190 mg/dl VERY HIGH Performed By: #### G ELGIN, LIPID #### [facility] [address] [address] [address] Kenna Thomas Triglyceride [Mass/Vol] 258 mg/dL Critically high <=150 [facility] Comment on above: Performed By: #### G EGLIN, LIPID #### [facility] [address] [address] [address] Kenna Thomas VLDL CALC 51.6 mg/dL Normal [facility] Comment on above: Performed By: #### G ELGIN, LIPID #### [facility] [address] [address] [address] Kenna Thomas Comp Metabolic Profon 2016 (cont.) Normal [facility] Comment on above: Result Comment: Aver age GFR for 40-49 years old: 99 mL/min/1.73sq mChronic Kidney Disease: <60 mL/min/1.73sq mKidney failure: <15 mL/min/1.73sq meGFR calculated using average adult body mass. Additional eGFR calculator available at:http://[email or web address]/multiple_crcl_[email or web address] at [address] [place] [address] Performed By: #### C P ####[address] [address] Alanine aminotransferase (ALT) 27 U/L Normal 5-41 [facility] Comment on above: Performed By: #### C P ####[address] [address] Albumin 3.7 g/dL Normal 3.5-5.2 [facility] Comment on above: Performed By: #### C P ####[address] [address] Albumin/Globulin Ratio 1.1 {ratio} Normal 1.0-2.5 [facility] Comment on above: Performed By: #### C P ####[address] [address] Alkaline Phos 125 U/L Normal 40-129 [facility] Comment on above: Performed By: #### C P ####[address] [address] Anion gap 14 mmol/L Normal 9-17 [facility] Comment on above: Performed By: #### C P ####[address] [address] Aspartate aminotransferase (AST) 20 U/L Normal <40 [facility] Comment on above: Performed By: #### C P ####[address] [address] Bilirubin Ql (U) 0.28 mg/dL Low 0.3-1.2 [facility] Comment on above: Performed By: #### C P ####[address] [address] Calcium 9.0 mg/dL Normal 8.6-10.4 [facility] Comment on above: Performed By: #### C P ####[facility] [place] [address] Chloride 98 mmol/L Normal 98-107 [facility] Comment on above: Performed By: #### C P ####[address] [place] [address] CO2 27 mmol/L Normal 20-31 [facility] Comment on above: Performed By: #### C P ####[address] [address] Creatinine 0.74 mg/dL Normal 0.70-1.20 [facility] Comment on above: Performed By: #### C P ####[address] [address] eGFR (non-black) mL/min/{1.73_m2} Normal >60 [facility] Comment on above: Performed By: #### C P ####[address] [address] Glucose mass conc 142 mg/dL High 70-99 [facility] Comment on above: Performed By: #### C P ####[address] [address] Potassium molar conc 4.2 mmol/L Normal 3.7-5.3 [facility] Comment on above: Performed By: #### C P ####[address] [place] [address] Protein 7.0 g/dL Normal 6.4-8.3 [facility] Comment on above: Performed By: #### C P ####[address] [address] Sodium 139 mmol/L Normal 135-144 [facility] Comment on above: Performed By: #### C P ####[facility] [place] [address] Urea nitrogen 9 mg/dL Normal 6-20 [facility] Comment on above: Performed By: #### C P ####[address] [place] [address] BUN/CRE Ratio NOT REPORTED Normal -20 [facility] Comment on above: Performed By: #### C P ####[address] [address] Staging: NOT REPORTED Normal [facility] Comment on above: Performed By: #### C P ####[address] [address] Drug Scr, Abuse, Uron 2016 Amphetamine(s),Ur Negative Normal NEG [facility] Comment on above: Result Comment: (Pos itive cutoff 1000 ng/mL) Performed By: #### KOMAL Hays DAU ####[address] [address] Barbiturate(s),Ur Negative Normal NEG [facility] Comment on above: Result Comment: (Pos itive cutoff 200 ng/mL) Performed By: #### U KOMAL Pride DAU ####[address] [address] Base excess Negative Normal NEG [facility] Comment on above: Result Comment: (Pos itive cutoff 300 ng/mL) Performed By: #### U AKOMAL YAZMIN ####[address] [address] Benzodiazepine(s) Negative Normal NEG [facility] Comment on above: Result Comment: (Pos itive cutoff 200 ng/mL) Performed By: #### U AKOMAL DAU ####[address] [place] [address] Cannabinoid(s),Ur Negative Normal NEG [facility] Comment on above: Result Comment: (Pos itive cutoff 50 ng/mL) Performed By: #### U KOMAL Pride DAU ####[address] [address] Interpretive Info Assay provides medic al screening only. The absence of expected drug(s) and/or Normal [facility] Comment on above: Result Comment: meta bolite(s) may indicate diluted or adulterated urine, limitations of testing or timing of collection.Testing for legal purposes should be confirmed by another method. To request confirmation of test result, please call the lab within 7 days of sample submission.Performed at [address] [address] Performed By: #### KOMAL Hays DAU ####[address] [address] Opiate(s), Ur Negative Normal NEG [facility] Comment on above: Result Comment: (Pos itive cutoff 300 ng/mL) Performed By: #### KOMAL Hays DAU ####[address] [address] Oxycodone, Urine Negative Normal NEG [facility] Comment on above: Result Comment: (Pos itive cutoff 100 ng/mL) Performed By: #### U AKOMAL YAZMIN ####[address] [address] Phencyclidine, Ur Negative Normal NEG [facility] Comment on above: Result Comment: (Pos itive cutoff 25 ng/mL) Performed By: #### U AKOMAL YAZMIN ####[address] [address] Urine, methadone presence Negative Normal NEG [facility] Comment on above: Result Comment: (Pos itive cutoff 300 ng/mL) Performed By: #### KOMAL Hays DAU ####[address] [address] Buprenorphrine, Ur NOT REPORTED Normal NEG [facility] Comment on above: Performed By: #### KOMAL Hays DAU ####[address] [address] MDMA, Urine NOT REPORTED Normal NEG [facility] Comment on above: Performed By: #### KOMAL Hays DAU ####[address] [address] Methamphetamine, Ur NOT REPORTED Normal NEG [facility] Comment on above: Performed By: #### KOMAL Hays DAU ####[address] [address] Propoxyphene,Urine NOT REPORTED Normal NEG [facility] Comment on above: Performed By: #### KOMAL Hays DAU ####[address] [address] Urine, tricyclic antidepressants NOT REPORTED Normal NEG [facility] Comment on above: Performed By: #### KOMAL Hays DAU ####[address] [address] Urinalysis, Routineon 2016 Acetaminophen mass conc Negative Normal NEG [facility] Comment on above: Performed By: #### KOMAL Hays DAU ####[address] [address] Bilirubin (direct) Negative Normal NEG [facility] Comment on above: Performed By: #### KOMAL Hays YAZMIN ####[facility] [place] [address] [place] [address] Hemoglobin mass conc (Bld) TRACE Abnormal NEG [facility] Comment on above: Performed By: #### U A, UMICAO, YAZMIN ####[facility] [place] [address] Nitrite,Ur Negative Normal NEG [facility] Comment on above: Performed By: #### U A, UMICAO, YAZMIN ####[facility] [place] [address] Turbidity CLEAR Normal CLEAR [facility] Comment on above: Performed By: #### U A, UMICAO, YAZMIN ####[facility] [place] [address] [place] [address] Urine, color YELLOW Normal YEL [facility] Comment on above: Performed By: #### U A, UMICAO, YAZMIN ####[facility] [place] [address], [place] [address] Urine, glucose presence Negative Normal NEG [facility] Comment on above: Performed By: #### U A, UMICAO, YAZMIN ####[facility] [place] [address] [place] [address] Urine, leukocyte esterase presence Negative Normal NEG [facility] Comment on above: Result Comment: Perf ormed at [facility] [address] [place] [address] Performed By: #### U A, UMICAO, YAZMIN ####[facility] [place] [address] [place] [address] Urine, pH 6.0 [pH] Normal 5.0-8.0 [facility] Comment on above: Performed By: #### U A, UMICAO, YAZMIN ####[place] [address] [place] [address] Urine, protein presence Negative Normal NEG [facility] Comment on above: Performed By: #### U A, UMICAO, YAZMIN ####[address] [place] [address] Urine, specific gravity 1.007 Normal 1.000-1.030 [facility] Comment on above: Performed By: #### U A, UMICAO, YAZMIN ####[address] [address] Urobilinogen,Ur Normal Normal NORM [facility] Comment on above: Performed By: #### U A, UMICAO, YAZMIN ####[address] [address] Comment NOT REPORTED Normal [facility] Comment on above: Performed By: #### U A, UMICAO, YAZMIN ####[address] [address] Urinalysis,Microon 7 ----- Normal [facility] Comment on above: Performed By: #### U A, UMICAO, YAZMIN ####[address] [address] Urine WBC's 0 TO 2 Normal [facility] Comment on above: Performed By: #### U A, UMICAO, YAZMIN ####[address] [address] Urine, bacteria in sediment FEW Abnormal NONE [facility] Comment on above: Result Comment: Perf ormed at [facility] [address] [place] [address] Performed By: #### U A, UMICAO, YAZMIN ####[facility] [facility] [place] [address] Urine, epithelial cells in sediment 0 TO 2 Normal [facility] Comment on above: Performed By: #### U A, UMICAO, YAZMIN ####[facility] [facility] [place] [address] Urine, erythrocytes 2 TO 5 Normal [facility] Comment on above: Performed By: #### U A, UMICAO, YAZMIN ####[facility] [facility] [place] [address] Epithelial, Renal NOT REPORTED Normal 0 [facility] Comment on above: Performed By: #### U A, PRAVEENO, YAZMIN ####[address] [place] [address] Mucus Strands NOT REPORTED Normal NONE [facility] Comment on above: Performed By: #### U A, KOMAL, YAZMIN ####[facility] [place] [address].[place] [address] Other Observations NOT REPORTED Normal NREQ [facility] Comment on above: Performed By: #### U A, PRAVEENO, YAZMIN ####[facility] [place] [address].[place] [address] Trichomonas NOT REPORTED Normal NONE [facility] Comment on above: Performed By: #### U A, UMICAO, YAZMIN ####[facility] [facility] [place] [address] Urine, amorphous sediment presence in sediment NOT REPORTED Normal NONE [facility] Comment on above: Performed By: #### U A, UMICAO, YAZMIN ####[facility] [place] [address].[place] [address] Urine, casts in sediment NOT REPORTED Normal [facility] Comment on above: Performed By: #### U AKOMAL DAU ####[address] [address] Urine, crystals in sediment NOT REPORTED Normal NONE [facility] Comment on above: Performed By: #### U AKOMAL, YAZMIN ####[address] [address] Urine, yeast presence in sediment NOT REPORTED Normal NONE [facility] Comment on above: Performed By: #### U AKOMAL DAU ####[address] [address] CBC with Diffon 01-30-2017 Abs. Basophil 0.10 k/uL Normal 0.0-0.2 [facility] Comment on above: Result Comment: Perf ormed at [facility] [address] [place] [address] Performed By: #### C DP, CP ####[address] [address] Abs.Neutrophil (Seg) 5.40 k/uL Normal 1.3-9.1 [facility] Comment on above: Performed By: #### C DP, CP ####[address] [address] Basophils/100 WBC Auto (Bld) 1 % Normal [facility] Comment on above: Performed By: #### C DP, CP ####[address] [address] Eosinophils 0.40 10*3/uL Normal 0.0-0.4 [facility] Comment on above: Performed By: #### C DP, CP ####[address] [address] Eosinophils/100 leukocytes 5 % Normal [facility] Comment on above: Performed By: #### C DP, CP ####[facility] [place] [address] Erythrocyte distribution width Auto Ratio (RBC) 13.0 % Normal 11.5-14.9 [facility] Comment on above: Performed By: #### C DP, CP ####[facility] [place] [address].[place] [address] Erythrocytes (RBC) 4.26 10*6/uL Low 4.5-5.9 [facility] Comment on above: Performed By: #### C DP, CP ####[facility] [place] [address] Hematocrit (HCT) 42.3 % Normal 41-53 [facility] Comment on above: Performed By: #### C DP, CP ####[facility] [place] [address] Hemoglobin mass conc (Bld) 14.5 g/dL Normal 13.5-17.5 [facility] Comment on above: Performed By: #### C DP, CP ####[facility] [place] [address].[place] [address] Lymphocytes 2.20 10*3/uL Normal 1.0-4.8 [facility] Comment on above: Performed By: #### C DP, CP ####[facility] [place] [address] Lymphocytes/100 leukocytes 25 % Normal [facility] Comment on above: Performed By: #### C DP, CP ####[facility] [place] [address] MCH 34.0 pg Normal 26-34 [facility] Comment on above: Performed By: #### C DP, CP ####[facility] [place] [address] MCHC mass conc (RBC) 34.2 g/dL Normal 31-37 [facility] Comment on above: Performed By: #### C DP, CP ####[facility] [place] [address] MCV 99.3 fL Normal 80-100 [facility] Comment on above: Performed By: #### C DP, CP ####[facility] [place] [address] Monocytes 0.60 10*3/uL Normal 0.1-1.3 [facility] Comment on above: Performed By: #### C DP, CP ####[facility] [facility] [place] [address] Monocytes/100 leukocytes 7 % Normal [facility] Comment on above: Performed By: #### C DP, CP ####[facility] [place] [address] Neutrophil (Seg) 62 % Normal [facility] Comment on above: Performed By: #### C DP, CP ####[facility] [place] [address] Platelet mean volume (PMV) 9.1 fL Normal 6.0-12.0 [facility] Comment on above: Performed By: #### C DP, CP ####[facility] [facility] [place] [address] Platelets 225 10*3/uL Normal 150-450 [facility] Comment on above: Performed By: #### C DP, CP ####[facility] [place] [address] WBC (Leukocytes) 8.7 10*3/uL Normal 3.5-11.0 [facility] Comment on above: Performed By: #### C DP, CP ####[facility] [place] [address] Auto Diff Performed NOT REPORTED Normal [facility] Comment on above: Performed By: #### C DP, CP ####[facility] [place] [address] Erythrocyte morphology NOT REPORTED Normal [facility] Comment on above: Performed By: #### C DP, CP ####[facility] [place] [address] Platelets NOT REPORTED Normal [facility] Comment on above: Performed By: #### C DP, CP ####[place] [address] [facility] [place] [address] WBC Morphology NOT REPORTED Normal [facility] Comment on above: Performed By: #### C DP, CP ####[facility] [facility] [place] [address] Comp Metabolic Profon 2016 (cont.) Normal [facility] Comment on above: Result Comment: Aver age GFR for 40-49 years old: 99 mL/min/1.73sq mChronic Kidney Disease: <60 mL/min/1.73sq mKidney failure: <15 mL/min/1.73sq meGFR calculated using average adult body mass. Additional eGFR calculator available at:http://www.[employer].com/multiple_crcl_2011.htmPerformed at [facility] [address] [place] [address] Performed By: #### C DP, CP ####[facility] [place] [address] Alanine aminotransferase (ALT) 20 U/L Normal 5-41 [facility] Comment on above: Performed By: #### C DP, CP ####[facility] [place] [address] Albumin 3.3 g/dL Low 3.5-5.2 [facility] Comment on above: Performed By: #### C DP, CP ####[facility] [place] [address] Alkaline Phos 120 U/L Normal 40-129 [facility] Comment on above: Performed By: #### C DP, CP ####[facility] [place] [address] Anion gap 12 mmol/L Normal 9-17 [facility] Comment on above: Performed By: #### C DP, CP ####[facility] [place] [address] Aspartate aminotransferase (AST) 26 U/L Normal <40 [facility] Comment on above: Performed By: #### C DP, CP ####[facility] [place] [address] Bilirubin Ql (U) 0.29 mg/dL Low 0.3-1.2 [facility] Comment on above: Performed By: #### C DP, CP ####[facility] [place] [address] Calcium 8.4 mg/dL Low 8.6-10.4 [facility] Comment on above: Performed By: #### C DP, CP ####[facility] [place] [address] Chloride 104 mmol/L Normal 98-107 [facility] Comment on above: Performed By: #### C DP, CP ####[facility] [place] [address] CO2 27 mmol/L Normal 20-31 [facility] Comment on above: Performed By: #### C DP, CP ####[facility] [place] [address] Creatinine 0.70 mg/dL Normal 0.70-1.20 [facility] Comment on above: Performed By: #### C DP, CP ####[facility] [place] [address] eGFR (non-black) mL/min/{1.73_m2} Normal >60 [facility] Comment on above: Performed By: #### C DP, CP ####[address] [address] Glucose mass conc 117 mg/dL High 70-99 [facility] Comment on above: Performed By: #### C DP, CP ####[address] [address] Potassium molar conc 3.1 mmol/L Low 3.7-5.3 [facility] Comment on above: Performed By: #### C DP, CP ####[address] [address] Protein 6.2 g/dL Low 6.4-8.3 [facility] Comment on above: Performed By: #### C DP, CP ####[address] [address] Sodium 143 mmol/L Normal 135-144 [facility] Comment on above: Performed By: #### C DP, CP ####[address] [address] Urea nitrogen 5 mg/dL Low 6-20 [facility] Comment on above: Performed By: #### C DP, CP ####[address] [address] Albumin/Globulin Ratio NOT REPORTED Normal 1.0-2.5 [facility] Comment on above: Performed By: #### C DP, CP ####[facility] [facility] [place] [address] BUN/CRE Ratio NOT REPORTED Normal 9-20 [facility] Comment on above: Performed By: #### C DP, CP ####[facility] [facility] [place] [address] Staging: NOT REPORTED Normal [facility] Comment on above: Performed By: #### C DP, CP ####[facility] [facility] [place] [address] Vital Signs Date Time Vital Sign Value Performing Clinician Ryan feliz 11-15-2022 14:53-0400 Blood Pressure Location YU FERNANDEZ [facility] 11-15-2022 14:53-0400 Diastolic blood pressure 74 mm[Hg] YU DUGGANRY [facility] 11-15-2022 14:53-0400 Heart rate 68 /min YU FERNANDEZ [facility] 11-15-2022 14:53-0400 Respiratory rate 16 /min YU REBECCA [facility] 11-15-2022 14:53-0400 Systolic blood pressure 138 mm[Hg] YU REBECCA [facility] 01-17-2022 10:08-0400 Blood Pressure Location Tee Almendarez Jr. [facility] 01-17-2022 10:08-0400 Diastolic blood pressure 79 mm[Hg] Tee Almendarez Jr. [facility] 01-17-2022 10:08-0400 Heart rate 81 /min Tee Almendarez Jr. [facility] 01-17-2022 10:08-0400 Respiratory rate 16 /min Tee Almendarez Jr. [facility] 01-17-2022 10:08-0400 Systolic blood pressure 138 mm[Hg] Tee Almendarez Jr. [facility] 11-15-2021 09:32-0400 Blood Pressure Location Tee Almendarez Jr. [facility] 11-15-2021 09:32-0400 Diastolic blood pressure 76 mm[Hg] Tee Almendarez Jr. [facility] 11-15-2021 09:32-0400 Heart rate 97 /min Tee Almendarez Jr. [facility] 11-15-2021 09:32-0400 Respiratory rate 18 /min Tee Almendarez Jr. [facility] 11-15-2021 09:32-0400 Systolic blood pressure 112 mm[Hg] Tee Almendarez Jr. [facility] Encounters Encounter Date Encounter Type Care Provider Facility Start: 11-20-2023 ambulatory STONE FAWWAD [facility] Start: 10-25-2023 End: 10-25-2023 ambulatory TYRESE TRUJILLO Not Available Start: 10-10-2023 ambulatory Kota Carvalho acility:[facility] Start: 10-08-2023 End: 10-08-2023 ambulatory STONE FAWWAD Not Available Start: 09-10-2023 End: 09-10-2023 ambulatory STONE FAWWAD Not Available Start: 08-06-2023 End: 08-06-2023 ambulatory STONE FAWWAD Not Available Start: 06-26-2023 End: 06-26-2023 ambulatory STONE FAWWAD Not Available Start: 11-24-2022 End: 11-25-2022 ambulatory STONE H FAWWAD Facility:[facility] Start: 11-15-2022 End: 11-16-2022 ambulatory YU FERNANDEZ Facility:[facility] Start: 11-15-2022 End: 11-15-2022 Patient encounter procedure YU FERNANDEZ [facility] Start: 04-18-2022 End: 04-19-2022 ambulatory STONE H FAWWAD Facility:[facility] Start: 03-24-2022 End: 03-24-2022 ambulatory STONE H FAWWAD Facility:[facility] Start: 03-11-2022 End: 03-11-2022 ambulatory STONE H FAWWAD Facility:[facility] Start: 02-16-2022 ambulatory STONE H FAWWAD Facilit y:[facility] Start: 01-17-2022 End: 01-17-2022 Patient encounter procedure Tee Almendarez Jr. [facility] Start: 01-09-2022 End: 01-10-2022 ambulatory STONE H FAWWAD Facility:[facility] Start: 12-08-2021 End: 12-09-[address] TEE Lopez Facility:[facility] Start: 11-15-2021 End: 11-15-2021 Patient encounter procedure Tee Almendarez Jr. [facility] Start: 04-28-2021 End: 05-04-2021 ambulatory UNKNOWN PROVIDER Facility:[facility] Start: 01-29-2017 End: 02-05-2017 Evaluation and management of inpatient KUL B PIERRE [facility] Procedures Date Procedure Procedure Detail Performing Clinician Start: 02-05-2017 DISCHARGE PATIENT KUL G UPTA Start: 02-03-2017 COMPREHENSIVE METABO LIC PANEL KUL PIERRE Start: 02-03-2017 Microscopic urinalysis KUL PIERRE Start: 02-03-2017 Urinalysis KUL PIERRE Start: 02-03-2017 URINE DRUG SCREEN KUL G UPTA Start: 01-30-2017 CBC WITH AUTO DIFFERENTIAL KUL PIERRE Start: 01-30-2017 COMPREHENSIVE METABO LIC PANEL KUL PIERRE Start: 01-29-2017 FULL CODE KUL PIERRE Start: 01-29-2017 IP CONSULT TO HISTOR Y AND PHYSICAL KUL PIERRE Start: 01-29-2017 PATIENT STATUS (DIRECT) KUL PIERRE Start: 01-29-2017 DIET GENERAL KUL PIERRE None (qualifier value) Kwame Almendarez Jr. Immunizations Immunization Date Immunization Notes Care Provider Fa cili 01-01-2021 SARS-CoV-2 (COVID-19 ) mRNA BNT-162b2 vax YU FERNANDEZ [facility] Comment on above: Result Comment: 2022: [id number] 12-11-2020 SARS-CoV-2 (COVID-19 ) mRNA BNT-162b2 mehdi FERNANDEZ [facility] Comment on above: Result Comment: 2022: [id number] Payers Date Payer Category Payer Self-pay 2021 Unknown [id number] 2016 Medicare [id number] 1970 Unknown [id number] 2.16. [id number] 1972 Unknown [id number] 2.16.84 0.1.806311.3.579.2.593 1972 Unknown [id number] 2.16.84 0.1.882830.3.579.2.593 1972 Unknown [id number] 2.16.84 0.1.684223.3.579.2.593 1972 Unknown [id number] 2.16.84 0.1.667241.3.579.2.593 1972 Unknown [id number] 2.16.84 0.1.528849.3.579.2.593 1972 Unknown [id number] 2.16.84 0.1.578749.3.579.2.593 1972 Unknown [id number] 2.16.84 0.1.132674.3.579.2.593 1972 Unknown [id number] 2.16.84 0.1.914787.3.579.2.593 1972 Unknown [id number] 2.16.8 40.1.086653.3.579.2.727 1972 Unknown [id number] 2.16.8 40.1.209986.3.579.2.727 1972 Unknown [id number] 2.16.84 0.1.845488.3.579.2.1259 1972 Unknown [id number] 2.16.840 .1.389977.3.579.2.1259 1972 Unknown [id number] 2.16.84 0.1.073472.3.579.2.1259 1972 Unknown [id number] 2.16.84 0.1.214290.3.579.2.1259 1972 Unknown [id number] 2.16.84 0.1.624345.3.579.2.1259 1957 Medicare [id number] Unknown [id number] 2.16.8 40.1.595411.3.579.2.531 Social History Date Type Detail Facility Tobacco Current, Cigaret yao, 40 per day. [facility] Sex Assigned At Male [facility] [employer] Start: 01-17-2022 End: 11-15-2022 Tobacco smoking status Heavy tobacco smoker (finding) [facility] [employer] Functional Status Date Assessment Result Facility 11-15-2022 Functional Status N/A [facility] 01-17-2022 Functional Status N/A [facility] [employer] Hospital Discharge instructions 11-15-2022 Note Date & [...] Follow these instructions at home: Medicines Take zhcf-gyr-lzhgpvu and prescription medicines only as told by [...] provider. Document Revised: 09/28/2021 Document Reviewed: 09/28/2021 [employer] Patient Education 2022 [employer]. Follow Up Care 10/31/2022 09:47:32 With:REBECCA OLIVEIRA, YU Huang, URL Address: [address] [facility] [place] [address] When: Unknown [facility] Discharge instructions 01-17-2022 Note Date & [...] Follow these instructions at home: Medicines Take onoi-psx-hdjrifm and prescription medicines only as told by [...] 06/29/2001 Document Revised: 06/14/2018 Document Reviewed: 07/18/2017 [employer] Patient Education 2020 [employer] Follow Up Care 11/15/2021 10:33:52 With:Erickson Brooks MD, Tee Brush URO Address: [facility] [address], [place] [phone] When:02/28/2022 [facility] Discharge instructions 11-15-2021 Note Date & [...] Follow these instructions at home: Medicines Take hzkr-kcz-iklqesy and prescription medicines only as told by [...] 06/29/2001 Document Revised: 06/14/2018 Document Reviewed: 07/18/2017 [employer] Patient Education 2020 [employer]. Follow Up Care 08/23/2021 10:12:56 With:Tee Almendarez Jr., MD, URO Address: [facility] [address], [place] [address]- When:01/15/2022 [facility] Evaluation + Plan note Note Date & Type Note Facility Evaluation + Plan note Future Appointments Appointment Date:01/17/2022 09:45:00 AM Scheduled Provider:Tee Almendarez Jr., MD Location:[facility] Appointment Type:URO Office Visit Diagnostic Tests PendingTestosterone Level Total 11/15/21 [facility] Evaluation + Plan note Note Date & Type Note Facility Evaluation + Plan note Future Appointments Appointment Date:03/07/2022 08:45:00 AM Scheduled Provider:Tee Almendarez Jr., MD Location:[facility] Appointment Type:URO Office Visit [facility] Plan note Note Date & Type Note Facility Evaluation + Plan note Future Appointments Appointment Date:11/20/2023 09:00:00 AM Scheduled Provider:YU FERNANDEZ PA-C Location:[facility] Appointment Type:URO Office Visit [facility] Hospital course Narrative Note Date & Type Note Facility Hospital course Narrative No data available for this section [facility] Progress note Note Date & Type Note Facility Progress note No data available for this section [facility] Summary Purpose Family History No Family History [...] section and content) DATE CREATED AUTHOR 01/09/2018 [facility] DATE CREATED AUTHOR AUTHOR'S ORGANIZ ATION 05/06/2021 [facility] DATE CREATED AUTHOR AUTHOR'S ORGANIZ ATION 11/27/2022 [facility] DATE CREATED AUTHOR AUTHOR'S ORGANIZ ATION 07/25/2023 [facility] DATE CREATED AUTHOR AUTHOR'S ORGANIZ ATION 08/06/2023 [facility] EPIC DATE CREATED AUTHOR AUTHOR'S ORGANIZ ATION 10/26/2023 [facility] EPIC DATE CREATED AUTHOR AUTHOR'S ORGANIZ ATION 11/20/2023 [facility] Care Team (unrecognized sect ion and content) Personnel Name: SHAIKH SIMS Address: [place] [address] [place] Name: Anilong Terri Personnel Name: SHAIKH SIMS Address: Address: [place] [address] [place] Name: Terri Brito FOR RECORDS PERTAINING [...] BE BASED ON THE PRIMARY CLINICAL RECORDS. [facility] [employer] [facility]. provides no warranty or guarantee of the accuracy or completeness of information in this document.
--- NOTE | 2023-11-28 08:28 | XR_ITS ---
[facility] [place] [id number] Patient Name: JOHNNY HAMILTON MRN: [id number] date: 1970 Sex: M Assigned Patient Location: [facility] Current Patient Location: [facility] Accession/Order Number: [id number] Exam Date: 11/28/2023 08:40 Report Date: 11/28/2023 10:15 At the request of: SHAIKH LEVI Procedure: XR lumbar spine 2-3V EXAMINATION: XR lumbar spine 2-3V HISTORY: Chronic Low Back Pain M54.50 COMPARISON: No relevant comparison available. FINDINGS: BONES: Normal alignment with no acute fracture or spondylolisthesis. Mild to moderate spondylosis and facet osteoarthropathy DISC SPACES: Normal. No significant disc height narrowing, subluxation, or endplate abnormality. PARASPINOUS: Negative. No paraspinous abnormality is seen. OTHER: Negative. XR/XR lumbar spine 2-3V IMPRESSION: Mild to moderate degenerative changes Electronically authenticated by: SREEDHAR JONES Date: 11/28/2023 10:15
== END 2023-11-28 08:15 | disposition home or self-care (01) ==
LOC: RAD 08:16
PROVIDERS: PCP Internal Medicine; Visit Provider Internal Medicine
DX: M54.50 Low back pain, unspecified (principal); G89.29 Other chronic pain; M51.36 Other intervertebral disc degeneration, lumbar region
CPT/HCPCS: 72100

== ENCOUNTER 2024-01-01 07:09 | Outpatient (OUT) | payer MEDICARE, SELFPAY ==
[2024-01-01 07:28] LABS: Basophils Absolute Auto 0.1 10^3/uL (0.0-0.1); Basophils Percent Auto 0.9 % (0.2-2.0); Eosinophils Absolute Auto 0.4 10^3/uL (0.0-0.7); Eosinophils Percent Auto 3.7 % (0.9-7.0); Hematocrit 41.9 % (42.0-54.0); Hemoglobin 14.5 g/dL (14.0-18.0); Immature Granulocytes Abs Auto 0.02 10^3/uL (0.00-0.03); Immature Granulocytes Pct Auto 0.2 % (0.0-0.5); Lymphocytes Absolute Auto 2.5 10^3/uL (1.2-3.8); Lymphocytes Percent Auto 25.8 % (20.5-60.0); Mean Corpuscular HGB Conc 34.6 g/dL (29.9-35.2); Mean Corpuscular Hemoglobin 33.3 pg (25.9-34.0); Mean Corpuscular Volume 96.3 fL (80.0-94.0); Monocytes Absolute Auto 0.9 10^3/uL (0.3-0.8); Neutrophils Absolute Auto 5.9 10^3/uL (1.4-6.5); Neutrophils Percent Auto 60.4 % (43.0-75.0); Platelet Count 233 10^3/uL (150-450); Red Blood Count 4.35 10^6/uL (4.70-6.10); Red Cell Distribution Width 11.7 % (11.0-15.0); White Blood Count 9.7 10^3/uL (4.0-11.0)
[2024-01-01 08:26] LABS: Estimated Average Glucose 146 mg/dL; Glycohemoglobin A1C 6.7 % (4.5-6.2)
[2024-01-01 08:32] LABS: Alanine Aminotransferase 32 U/L (16-63); Albumin Globulin Ratio 0.8; Albumin Level 3.4 g/dL (3.4-5.0); Alkaline Phosphatase 147 U/L (46-116); Anion Gap 14.2; Aspartate Amino Transferase 25 U/L (15-37); BUN Creatinine Ratio 9.9; Bilirubin Total 0.6 mg/dL (0.2-1.0); Carbon Dioxide 27.7 mmol/L (21.0-32.0); Chloride 101 mmol/L (98-107); Chol HDL Ratio 3.6; Cholesterol 128 mg/dL (<=200); Estimated GFR (African America >60 (>=60); Estimated GFR (Non-African Ame >60 (>=60); Globulin 4.3 g/dL; Glucose 151 mg/dL (74-106); HDL Cholesterol 36 mg/dL (40-60); Potassium 3.9 mmol/L (3.5-5.1); Sodium 139 mmol/L (136-145); Total Protein 7.7 g/dL (6.4-8.2); Triglycerides 168 mg/dL (<=150); VLDL CHOLESTEROL 33.6 mg/dL
== END 2024-01-01 07:10 | disposition home or self-care (01) ==
LOC: LAB 07:11
PROVIDERS: PCP Internal Medicine; Visit Provider Internal Medicine
DX: E78.5 Hyperlipidemia, unspecified (principal); E11.9 Type 2 diabetes mellitus without complications; Z79.4 Long term (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 of insulin; E66.01 Morbid (severe) obesity due to excess calories
CPT/HCPCS: 36415; 80053; 80061; 83036; 85025

== ENCOUNTER 2024-04-03 11:49 | Outpatient (OUT) | payer MEDICARE, SELFPAY ==
--- OUTSIDE RECORDS SUMMARY | 2024-04-03 12:11 | XMS_ITS | CCD ---
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 Role Phone PIERRE, KUL B Unavailable Unavailable PIERRE, KUL B Unavailable Unavailable PROVIDER, UNKNOWN Attending Unavailable PROVIDER, UNKNOWN Admitting Unavailable SHAIKH SIMS Primary Care Physician Terri Brito Unavailable Unavailable [...] Unavailmaite GONZALEZ, DR JUNITO Galvan Attending Unavailabl e LISA, DR JUNITO Galvan Consulting Unavailabl e SPROUT, SHANE Admitting Unavailable SHANE NATH Attending Unavailable LEVI, H Primary Care Unavailable SHANE NATH Consulting Unavailable LEVI, Attending Unavailable FAJABARI, Attending Unavailable LEVI, Attending Unavailable LEVI, Attending Unavailable LEVI, Attending Unavailable TYRESE TRUJILLO Attending Unavailable TYRESE TRUJILLO Referring Unavailable LEVI, Attending Unavailable LEVI, Attending Unavailable ASHANTI NICHOLS Attending Unavailabl e LEVI, Attending Unavailable Kota Pozo Attending Unavailab Kota Cox Admitting Unavailab Bam Chin Primary Care Unavailable AMITA FERNANDEZ Attending Unavailable LEVI, Primary Care Unavailable AMITA FERNANDEZ Attending Unavailable Allergies Allergy Classification Reported Allergen(s) Allergy Type Date of Onset Reaction(s) Facility (1 source) Shellfish Drug allergy (disorder) 03-15-2017 [facility] Repository Medications Current Medications Medication Drug [...] BID, # 60 tab(s), Refills(s) 0, Pharmacy: [facility] Start Date: 04/11/21 Status: Ordered Lantus (3 [...] dysfunction., # 30 tab(s), Refills(s) 3, Pharmacy: [facility], 170, cm, 11/15/21 9:38:00 EDT, Height/Length Dosing, 116.6, kg, 11/15/21 9:38:00 EDT, Weight Dosing Start Date: 11/15/21 Status: Ordered 60 actuat testosterone 20.25 mg/actuat topical gel (2 sources) Androgen Start: 08-23-2021 AndroGel Pump 20.25 mg/1.25 g (1.62%) transdermal gel = 2 pump, Topical, qAM, # 75 gram, Refills(s) 1, Pharmacy: [facility], 170, cm, 07/05/21 10:18:00 EST, Height/Length Dosing, 170, kg, 08/23/21 9:37:00 EST, Weight Dosing Start Date: 08/23/21 Status: Ordered vardenafil 20 mg oral tablet (1 source) Phosphodiesterase 5 Inhibitor Start: 01-17-2022 take 1 tablet by mouth once daily as needed Levitra 20 mg Tab 20 mg = 1 tab(s), Oral, Daily, PRN for erectile dysfunction, # 30 tab(s), Refills(s) 1, Pharmacy: [facility], 170, cm, 01/17/22 10:42:00 EDT, [...] 03-24-2022 Episodic Other aftercare (5 sources) Other half-way (current) drug therapy; Translations: [OTH SKILLED NURSING CURRENT DRUG THERAPY] Onset: 12-08-2021 Episodic Other aftercare (1 source) detention (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 of insulin; Translations: [MECHANICAL INTERN CURRENT USE OF INSULIN] Onset: 03-27-2022 Episodic Other gastrointestinal disorders (1 source) Constipation, unspecified; Translations: [CONSTIPATION UNSPECIFIED] Onset: 03-27-2022 Episodic Other nervous system disorders (3 sources) Fasciculation; Translations: [FASCICULATION] Onset: 03-11-2022 Episodic Results Test Name Value Interpretation Reference Range Facility CBC AUTO DIFFon 11-24-2022 BASO # 0.1 103/ul Normal 0.0-0.1 [facility] Comment on above: Performed By: #### C BC #### [facility] [address] [address] [address] Kenna Thomas Basophils/100 WBC (Bld) 1.1 % Normal 0.2-2.0 [facility] Comment on above: Performed By: #### C BC #### [facility] [address] [address] [address] Kenna Thomas EO # 0.4 103/ul Normal 0.0-0.7 [facility] Comment on above: Performed By: #### C BC #### [facility] [address] [address] [address] Kenna Thomas Eosinophils/100 WBC (Bld) 4.6 % Normal 0.9-7.0 [facility] Comment on above: Performed By: #### C BC #### [facility] [address] [address] [address] Kenna Thomas Erythrocyte distribution width (RBC) [Ratio] 11.5 % Normal 11.0-15.0 [facility] Comment on above: Performed By: #### C BC #### [facility] [address] [address] [address] Kenna Thomas Hematocrit (Bld) [Volume fraction] 44.3 % Normal 42.0-54.0 [facility] Comment on above: Performed By: #### C BC #### [facility] [address] [address] [address] Kenna Thomas Hemoglobin (Bld) [Mass/Vol] 15.8 g/dL Normal 14.0-18.0 [facility] Comment on above: Performed By: #### C BC #### [facility] [address] [place] [address] Dr. Kenna Thomas IG # 0.03 10e3/ul Normal 0.00-0.03 [facility] Comment on above: Performed By: #### C BC #### [facility] [address] [address] [address] Kenna Thomas IG % 0.4 % Normal 0.0-0.5 [facility] Comment on above: Performed By: #### C BC #### [facility] [address] [place] [address] Dr. Kenna Thomas LYMPH # 1.8 103/ul Normal 1.2-3.8 [facility] Comment on above: Performed By: #### C BC #### [facility] [address] [place] [address] Dr. Kenna Thomas Lymphocytes/100 WBC (Bld) 23.3 % Normal 20.5-60.0 [facility] Comment on above: Performed By: #### C BC #### [facility] [address] [place] [address] Dr. Kenna Thomas MANUAL DIFF REQ NO Normal [facility] Comment on above: Performed By: #### C BC #### [facility] [address] [place] [address] Dr. Kenna Thomas MCH (RBC) [Entitic mass] 34.1 pg Critically high 25.9-34.0 [facility] Comment on above: Performed By: #### C BC #### [facility] [address] [place] [address] Dr. Kenna Thomas MCHC (RBC) [Mass/Vol] 35.7 g/dL Critically high 29.9-35.2 [facility] Comment on above: Performed By: #### C BC #### [facility] [address] [place] [address] Dr. Kenna Thomas MCV (RBC) [Entitic vol] 95.5 fL Critically high 80.0-94.0 [facility] Comment on above: Performed By: #### C BC #### [facility] [address] [address] [address] Kenna Thomas MONO # 0.7 103/ul Normal 0.3-0.8 [facility] Comment on above: Performed By: #### C BC #### [facility] [address] [place] [address] Dr. Kenna Thomas Monocytes/100 WBC (Bld) 8.4 % Normal 1.7-12.0 [facility] Comment on above: Performed By: #### C BC #### [facility] [address] [place] [address] Dr. Kenna Thomas NEUT # 4.9 103/ul Normal 1.4-6.5 [facility] Comment on above: Performed By: #### C BC #### [facility] [address] [place] [address] Dr. Kenna Thomas Neutrophils/100 WBC (Bld) 62.2 % Normal 43.0-75.0 [facility] Comment on above: Performed By: #### C BC #### [facility] [address] [place] [address] Dr. Kenna Thomas Platelet mean volume (Bld) [Entitic vol] 9.6 fL Normal 9.5-13.5 [facility] Comment on above: Performed By: #### C BC #### [facility] [address] [place] [address] Dr. Kenna Thomas PLT 251 103/ul Normal 150-450 [facility] Comment on above: Performed By: #### C BC #### [facility] [address] [place] [address] Dr. Kenna Thomas RBC 4.64 106/ul Critically low 4.70-6.10 [facility] Comment on above: Performed By: #### C BC #### [facility] [address] [place] [address] Dr. Kenna Thomas WBC 7.9 103/ul Normal 4.0-11.0 [facility] Comment on above: Performed By: #### C BC #### [facility] [address] [place] [address] Dr. Kenna Thomas GLYCOHEMOGLOBIN A1Con 2022 ADA RECOMMENDATION SEE BELOW Normal [facility] Comment on above: Result Comment: ADA RECOMMENDED LIMIT 4.0 - 6.0 ADA THERAPEUTIC TARGET < 7.0 ACTION SUGGESTED > 7.0 Performed By: #### G ELGIN, LIPID #### [facility] [address] [address] [address] Kenna Thomas Glucose [Mass/Vol] 171 mg/dL Normal [facility] Comment on above: Performed By: #### G ELGIN, LIPID #### [facility] [address] [address] [address] Kenna Thomas HbA1c (Bld) [Mass fraction] 7.6 % Critically high 4.5-6.2 [facility] Comment on above: Performed By: #### G ELGIN, LIPID #### [facility] [address] [place] [address] Dr. Kenna Thomas PROF 14(COMP METB)on 023 Albumin [Mass/Vol] 3.4 g/dL Normal 3.4-5.0 [facility] Comment on above: Performed By: #### C MP #### [facility] [address] [address] [address] Kenna Thomas Albumin/Globulin [Mass ratio] 0.7 {ratio} Normal [facility] Comment on above: Performed By: #### C MP #### [facility] [address] [address] [address] Kenna Thomas ALP [Catalytic activity/Vol] 166 U/L Critically high 46-116 [facility] Comment on above: Performed By: #### C MP #### [facility] [address] [address] [address] Kenna Thomas ALT [Catalytic activity/Vol] 46 U/L Normal 16-63 [facility] Comment on above: Performed By: #### C MP #### [facility] [address] [place] [address] Dr. Kenna Thomas Anion gap [Moles/Vol] 12.2 mmol/L Normal [facility] Comment on above: Performed By: #### C MP #### [facility] [address] [address] [address] Kenna Thomas AST [Catalytic activity/Vol] 33 U/L Normal 15-37 [facility] Comment on above: Performed By: #### C MP #### [facility] [address] [address] [address] Kenna Thomas Bilirubin [Mass/Vol] 0.3 mg/dL Normal 0.2-1.0 [facility] Comment on above: Performed By: #### C MP #### [facility] [address] [place] [address] Dr. Kenna Thomas Calcium [Mass/Vol] 9.6 mg/dL Normal 8.5-10.1 [facility] Comment on above: Performed By: #### C MP #### [facility] [address] [place] [address] Dr. Kenna Thomas Chloride [Moles/Vol] 99 mmol/L Normal 98-107 [facility] Comment on above: Performed By: #### C MP #### [facility] [address] [place] [address] Dr. Kenna Thomas CO2 [Moles/Vol] 30.4 mmol/L Normal 21.0-32.0 [facility] Comment on above: Performed By: #### C MP #### [facility] [address] [place] [address] Dr. Kenna Thomas Creatinine [Mass/Vol] 1.01 mg/dL Normal 0.70-1.30 [facility] Comment on above: Performed By: #### C MP #### [facility] [address] [place] [address] Dr. Kenna Thomas EGFR-AF FAROESE >60 Normal >=60 [facility] Comment on above: Performed By: #### C MP #### [facility] [address] [place] [address] Dr. Kenna Thomas EGFR-NON AF FAROESE >60 Normal >=60 [facility] Comment on above: Performed By: #### C MP #### [facility] [address] [place] [address] Dr. Kenna Thomas Globulin (S) [Mass/Vol] 5.2 g/dL Normal [facility] Comment on above: Performed By: #### C MP #### [facility] [address] [place] [address] Dr. Kenna Thomas Glucose [Mass/Vol] 208 mg/dL Critically high 74-106 [facility] Comment on above: Performed By: #### C MP #### [facility] [address] [place] [address] Dr. Kenna Thomas Potassium [Moles/Vol] 4.6 mmol/L Normal 3.5-5.1 [facility] Comment on above: Performed By: #### C MP #### [facility] [address] [place] [address] Dr. Kenna Thomas Protein [Mass/Vol] 8.6 g/dL Critically high 6.4-8.2 [facility] Comment on above: Performed By: #### C MP #### [facility] [address] [place] [address] Dr. Kenna Thomas Sodium [Moles/Vol] 137 mmol/L Normal 136-145 [facility] Comment on above: Performed By: #### C MP #### [facility] [address] [place] [address] Dr. Kenna Thomas Urea nitrogen [Mass/Vol] 7.0 mg/dL Normal 7.0-18.0 [facility] Comment on above: Performed By: #### C MP #### [facility] [address] [place] [address] Dr. Kenna Thomas Urea nitrogen/Creatinine [Mass ratio] 6.9 mg/mg Normal [facility] Comment on above: Performed By: #### C MP #### [facility] [address] [place] [address] Dr. Kenna Thomas VIT B12 AND FOLATEon 023 Cobalamin (Vitamin B12) [Mass/Vol] 841.0 pg/mL Normal 193.0-986.0 [facility] Comment on above: Performed By: #### B 12FOL #### [facility] [address] [place], [place] [id number] Dr. Kenna Thomas FOLATE 17.30 ng/mL Normal 8.60-58.90 [facility] Comment on above: Performed By: #### B 12FOL #### [facility] [address] [place] [address] Dr. Kenna Thomas GLYCOHEMOGLOBIN A1Con 2021 ADA RECOMMENDATION SEE BELOW Normal [facility] Comment on above: Result Comment: ADA RECOMMENDED LIMIT 4.0 - 6.0 ADA THERAPEUTIC TARGET < 7.0 ACTION SUGGESTED > 7.0 Performed By: #### A 1C #### [facility] [address] [place] [address] Dr. Kenna Thomas Glucose [Mass/Vol] 148 mg/dL Normal [facility] Comment on above: Performed By: #### A 1C #### [facility] [address] [place] [address] Dr. Kenna Thomas HbA1c (Bld) [Mass fraction] 6.8 % Critically high 4.5-6.2 [facility] Comment on above: Performed By: #### A 1C #### [facility] [address] [place] [address] Dr. Kenna Thomas CBC AUTO DIFFon 03-24-2022 BASO # 0.1 103/ul Normal 0.0-0.1 [facility] Comment on above: Performed By: #### G ELGIN, LIPID #### [facility] [address] [place] [address] Dr. Kenna Thomas Basophils/100 WBC (Bld) 1.0 % Normal 0.2-2.0 [facility] Comment on above: Performed By: #### G ELGIN, LIPID #### [facility] [address] [place] [address] Dr. Kenna Thomas EO # 0.5 103/ul Normal 0.0-0.7 [facility] Comment on above: Performed By: #### G EGLIN, LIPID #### [facility] [address] [place] [address] Dr. Kenna Thomas Eosinophils/100 WBC (Bld) 4.0 % Normal 0.9-7.0 [facility] Comment on above: Performed By: #### G ELGIN, LIPID #### [facility] [address] [address] [address] Kenna Thomas Erythrocyte distribution width (RBC) [Ratio] 12.3 % Normal 11.0-15.0 [facility] Comment on above: Performed By: #### G ELGIN, LIPID #### [facility] [address] [place] [address] Dr. Kenna Thomas Hematocrit (Bld) [Volume fraction] 40.5 % Critically low 42.0-54.0 [facility] Comment on above: Performed By: #### G ELGIN, LIPID #### [facility] [address] [place] [address] Dr. Kenna Thomas Hemoglobin (Bld) [Mass/Vol] 14.4 g/dL Normal 14.0-18.0 [facility] Comment on above: Performed By: #### G ELGIN, LIPID #### [facility] [address] [place] [address] Dr. Kenna Thomas IG # 0.05 10e3/ul Critically high 0.00-0.03 [facility] Comment on above: Performed By: #### G ELGIN, LIPID #### [facility] [address] [place] [address] Dr. Kenna Thomas IG % 0.4 % Normal 0.0-0.5 [facility] Comment on above: Performed By: #### G ELGIN, LIPID #### [facility] [address] [place] [address] Dr. Kenna Thomas LYMPH # 3.0 103/ul Normal 1.2-3.8 [facility] Comment on above: Performed By: #### G ELGIN, LIPID #### [facility] [address] [place] [address] Dr. Kenna Thomas Lymphocytes/100 WBC (Bld) 24.6 % Normal 20.5-60.0 [facility] Comment on above: Performed By: #### G ELGIN, LIPID #### [facility] [address] [place] [address] Dr. Kenna Thomas MANUAL DIFF REQ NO Normal [facility] Comment on above: Performed By: #### G ELGIN, LIPID #### [facility] [address] [address] [address] Kenna Thomas MCH (RBC) [Entitic mass] 34.0 pg Normal 25.9-34.0 [facility] Comment on above: Performed By: #### G ELGIN, LIPID #### [facility] [address] [place] [address] Dr. Kenna Thomas MCHC (RBC) [Mass/Vol] 35.6 g/dL Critically high 29.9-35.2 [facility] Comment on above: Performed By: #### G ELGIN, LIPID #### [facility] [address] [place] [address] Dr. Kenna Thomas MCV (RBC) [Entitic vol] 95.7 fL Critically high 80.0-94.0 [facility] Comment on above: Performed By: #### G ELGIN, LIPID #### [facility] [address] [place] [address] Dr. Kenna Thomas MONO # 0.9 103/ul Critically high 0.3-0.8 [facility] Comment on above: Performed By: #### G ELGIN, LIPID #### [facility] [address] [place] [address] Dr. Kenna Thomas Monocytes/100 WBC (Bld) 7.6 % Normal 1.7-12.0 [facility] Comment on above: Performed By: #### G ELGIN, LIPID #### [facility] [address] [place] [address] Dr. Kenna Thomas NEUT # 7.5 103/ul Critically high 1.4-6.5 [facility] Comment on above: Performed By: #### G ELGIN, LIPID #### [facility] [address] [place] [address] Dr. Kenna Thomas Neutrophils/100 WBC (Bld) 62.4 % Normal 43.0-75.0 [facility] Comment on above: Performed By: #### G ELGIN, LIPID #### [facility] [address] [place] [address] Dr. Kenna Thomas Platelet mean volume (Bld) [Entitic vol] 10.5 fL Normal 9.5-13.5 [facility] Comment on above: Performed By: #### G ELGIN, LIPID #### [facility] [address] [place] [address] Dr. Kenna Thomas PLT 219 103/ul Normal 150-450 [facility] Comment on above: Performed By: #### G ELGIN, LIPID #### [facility] [address] [place] [address] Dr. Kenna Thomas RBC 4.23 106/ul Critically low 4.70-6.10 [facility] Comment on above: Performed By: #### G ELGIN, LIPID #### [facility] [address] [place] [address] Dr. Kenna Thomas WBC 12.0 103/ul Critically high 4.0-11.0 [facility] Comment on above: Performed By: #### G ELGIN, LIPID #### [facility] [address] [place] [address] Dr. Kenna Thomas PROF 14(COMP METB)on 022 Albumin [Mass/Vol] 3.2 g/dL Critically low 3.4-5.0 [facility] Comment on above: Performed By: #### C MP #### [facility] [address] [place] [address] Dr. Kenna Thomas Albumin/Globulin [Mass ratio] 0.8 {ratio} Normal [facility] Comment on above: Performed By: #### C MP #### [facility] [address] [place] [address] Dr. Kenna Thomas ALP [Catalytic activity/Vol] 167 U/L Critically high 46-116 [facility] Comment on above: Performed By: #### C MP #### [facility] [address] [place] [address] Dr. Kenna Thomas ALT [Catalytic activity/Vol] 30 U/L Normal 16-63 [facility] Comment on above: Performed By: #### C MP #### [facility] [address] [place] [address] Dr. Kenna Thomas Anion gap [Moles/Vol] 12.0 mmol/L Normal [facility] Comment on above: Performed By: #### C MP #### [facility] [address] [place] [address] Dr. Kenna Thomas AST [Catalytic activity/Vol] 12 U/L Critically low 15-37 [facility] Comment on above: Performed By: #### C MP #### [facility] [address] [place] [address] Dr. Kenna Thomas Bilirubin [Mass/Vol] 0.2 mg/dL Normal 0.2-1.0 [facility] Comment on above: Performed By: #### C MP #### [facility] [address] [place] [address] Dr. Kenna Thomas Calcium [Mass/Vol] 8.2 mg/dL Critically low 8.5-10.1 [facility] Comment on above: Performed By: #### C MP #### [facility] [address] [place] [address] Dr. Kenna Thomas Chloride [Moles/Vol] 102 mmol/L Normal 98-107 [facility] Comment on above: Performed By: #### C MP #### [facility] [address] [place] [address] Dr. Kenna Thomas CO2 [Moles/Vol] 24.3 mmol/L Normal 21.0-32.0 [facility] Comment on above: Performed By: #### C MP #### [facility] [address] [place] [address] Dr. Kenna Thomas Creatinine [Mass/Vol] 1.03 mg/dL Normal 0.70-1.30 [facility] Comment on above: Performed By: #### C MP #### [facility] [address] [place] [address] Dr. Kenna Thomas EGFR-AF FAROESE >60 Normal >=60 [facility] Comment on above: Performed By: #### C MP #### [facility] [address] [place] [address] Dr. Kenna Thomas EGFR-NON AF FAROESE >60 Normal >=60 [facility] Comment on above: Performed By: #### C MP #### [facility] [address] [address] [address] Kenna Thomas Globulin (S) [Mass/Vol] 3.8 g/dL Normal [facility] Comment on above: Performed By: #### C MP #### [facility] [address] [address] [address] Kenna Thomas Glucose [Mass/Vol] 258 mg/dL Critically high 74-106 [facility] Comment on above: Performed By: #### C MP #### [facility] [address] [address] [address] Kenna Thomas Potassium [Moles/Vol] 3.3 mmol/L Critically low 3.5-5.1 [facility] Comment on above: Performed By: #### C MP #### [facility] [address] [address] [address] Kenna Thomas Protein [Mass/Vol] 7.0 g/dL Normal 6.4-8.2 [facility] Comment on above: Performed By: #### C MP #### [facility] [address] [address] [address] Kenna Thomas Sodium [Moles/Vol] 135 mmol/L Critically low 136-145 [facility] Comment on above: Performed By: #### C MP #### [facility] [address] [address] [address] Kenna Thomas Urea nitrogen [Mass/Vol] 8.0 mg/dL Normal 7.0-18.0 [facility] Comment on above: Performed By: #### C MP #### [facility] [address] [address] [address] Kenna Thomas Urea nitrogen/Creatinine [Mass ratio] 7.8 mg/mg Normal [facility] Comment on above: Performed By: #### C MP #### [facility] [address] [address] [address] Kenna Thomas XR ABD FLAT UP_PA [...] PERICO DIAMOND Date: 2022-03-24 01:01 Normal [facility] CBC AUTO DIFFon 03-11-2022 BASO # 0.1 103/ul Normal 0.0-0.1 [facility] Comment on above: Performed By: #### G ELGIN, LIPID #### [facility] [address] [address] [address] Kenna Thomas Basophils/100 WBC (Bld) 1.1 % Normal 0.2-2.0 [facility] Comment on above: Performed By: #### G ELGIN, LIPID #### [facility] [address] [address] [address] Kenna Thomas EO # 0.6 103/ul Normal 0.0-0.7 [facility] Comment on above: Performed By: #### G ELGIN, LIPID #### [facility] [address] [address] [address] Kenna Thomas Eosinophils/100 WBC (Bld) 5.3 % Normal 0.9-7.0 [facility] Comment on above: Performed By: #### G ELGIN, LIPID #### [facility] [address] [address] [address] Kenna Thomas Erythrocyte distribution width (RBC) [Ratio] 12.0 % Normal 11.0-15.0 [facility] Comment on above: Performed By: #### G ELGIN, LIPID #### [facility] [address] [address] [address] Kenna Thomas Hematocrit (Bld) [Volume fraction] 41.8 % Critically low 42.0-54.0 [facility] Comment on above: Performed By: #### G ELGIN, LIPID #### [facility] [address] [address] [address] Kenna Thomas Hemoglobin (Bld) [Mass/Vol] 14.7 g/dL Normal 14.0-18.0 [facility] Comment on above: Performed By: #### G ELGIN, LIPID #### [facility] [address] [address] [address] Kenna Thomas IG # 0.07 10e3/ul Critically high 0.00-0.03 [facility] Comment on above: Performed By: #### G ELGIN, LIPID #### [facility] [address] [place] [address] Dr. Kenna Thomas IG % 0.6 % Critically high 0.0-0.5 [facility] Comment on above: Performed By: #### G ELGIN, LIPID #### [facility] [address] [place] [address] Dr. Kenna Thomas LYMPH # 2.4 103/ul Normal 1.2-3.8 [facility] Comment on above: Performed By: #### G ELGIN, LIPID #### [facility] [address] [address] [address] Kenna Thomas Lymphocytes/100 WBC (Bld) 21.2 % Normal 20.5-60.0 [facility] Comment on above: Performed By: #### G ELGIN, LIPID #### [facility] [address] [address] [address] Kenna Thomas MANUAL DIFF REQ NO Normal [facility] Comment on above: Performed By: #### G ELGIN, LIPID #### [facility] [address] [place] [address] Dr. Kenna Thomas MCH (RBC) [Entitic mass] 33.1 pg Normal 25.9-34.0 [facility] Comment on above: Performed By: #### G ELGIN, LIPID #### [facility] [address] [place] [address] Dr. Kenna Thomas MCHC (RBC) [Mass/Vol] 35.2 g/dL Normal 29.9-35.2 [facility] Comment on above: Performed By: #### G ELGIN, LIPID #### [facility] [address] [place] [address] Dr. Kenna Thomas MCV (RBC) [Entitic vol] 94.1 fL Critically high 80.0-94.0 [facility] Comment on above: Performed By: #### G ELGIN, LIPID #### [facility] [address] [place] [address] Dr. Kenna Thomas MONO # 0.9 103/ul Critically high 0.3-0.8 [facility] Comment on above: Performed By: #### G ELGIN, LIPID #### [facility] [address] [place] [address] Dr. Kenna Thomas Monocytes/100 WBC (Bld) 8.3 % Normal 1.7-12.0 [facility] Comment on above: Performed By: #### G ELGIN, LIPID #### [facility] [address] [place] [address] Dr. Kenna Thomas NEUT # 7.1 103/ul Critically high 1.4-6.5 [facility] Comment on above: Performed By: #### G ELGIN, LIPID #### [facility] [address] [place] [address] Dr. Kenna Thomas Neutrophils/100 WBC (Bld) 63.5 % Normal 43.0-75.0 [facility] Comment on above: Performed By: #### G ELGIN, LIPID #### [facility] [address] [place] [address] Dr. Kenna Thomas Platelet mean volume (Bld) [Entitic vol] 9.9 fL Normal 9.5-13.5 [facility] Comment on above: Performed By: #### G ELGIN, LIPID #### [facility] [address] [place] [address] Dr. Kenna Thomas PLT 230 103/ul Normal 150-450 [facility] Comment on above: Performed By: #### G ELGIN, LIPID #### [facility] [address] [address] [address] Kenna Thomas RBC 4.44 106/ul Critically low 4.70-6.10 [facility] Comment on above: Performed By: #### G ELGIN, LIPID #### [facility] [address] [address] [address] Kenna Thomas WBC 11.2 103/ul Critically high 4.0-11.0 [facility] Comment on above: Performed By: #### G ELGIN, LIPID #### [facility] [address] [place] [address] Dr. Kenna Thomas LACTATE/LACTIC ACIDon 2021 Lactate [Moles/Vol] 2.0 mmol/L Critically high 0.4-1.9 [facility] Comment on above: Performed By: #### L ACT #### [facility] [address] [address] [address] Kenna Thomas MAGNESIUMon 03-11-2022 Magnesium [Mass/Vol] 1.7 mg/dL Critically low 1.8-2.4 [facility] Comment on above: Performed By: #### G ELGIN, LIPID #### [facility] [address] [place] [address] Dr. Kenna Thomas PROF 14(COMP METB)on 022 Albumin [Mass/Vol] 3.3 g/dL Critically low 3.4-5.0 [facility] Comment on above: Performed By: #### G ELGIN, LIPID #### [facility] [address] [place] [address] Dr. Kenna Thomas Albumin/Globulin [Mass ratio] 0.8 {ratio} Normal [facility] Comment on above: Performed By: #### G ELGIN, LIPID #### [facility] [address] [place] [address] Dr. Kenna Thomas ALP [Catalytic activity/Vol] 156 U/L Critically high 46-116 [facility] Comment on above: Performed By: #### G ELGIN, LIPID #### [facility] [address] [address] [address] Kenna Thomas ALT [Catalytic activity/Vol] 28 U/L Normal 16-63 [facility] Comment on above: Performed By: #### G ELGIN, LIPID #### [facility] [address] [address] [address] Kenna Thomas Anion gap [Moles/Vol] 15.0 mmol/L Normal [facility] Comment on above: Performed By: #### G ELGIN, LIPID #### [facility] [address] [address] [address] Kenna Thomas AST [Catalytic activity/Vol] 20 U/L Normal 15-37 [facility] Comment on above: Performed By: #### G ELGIN, LIPID #### [facility] [address] [address] [address] Kenna Thomas Bilirubin [Mass/Vol] 0.5 mg/dL Normal 0.2-1.0 [facility] Comment on above: Performed By: #### G ELGIN, LIPID #### [facility] [address] [address] [address] Kenna Thomas Calcium [Mass/Vol] 9.0 mg/dL Normal 8.5-10.1 [facility] Comment on above: Performed By: #### G ELGIN, LIPID #### [facility] [address] [address] [address] Kenna Thomas Chloride [Moles/Vol] 100 mmol/L Normal 98-107 [facility] Comment on above: Performed By: #### G ELGIN, LIPID #### [facility] [address] [address] [address] Kenna Thomas CO2 [Moles/Vol] 25.6 mmol/L Normal 21.0-32.0 [facility] Comment on above: Performed By: #### G ELGIN, LIPID #### [facility] [address] [address] [address] Kenna Thomas Creatinine [Mass/Vol] 0.83 mg/dL Normal 0.70-1.30 [facility] Comment on above: Performed By: #### G ELGIN, LIPID #### [facility] [address] [address] [address] Kenna Thomas EGFR-AF FAROESE >60 Normal >=60 [facility] Comment on above: Performed By: #### G ELGIN, LIPID #### [facility] [address] [address] [address] Kenna Thomas EGFR-NON AF FAROESE >60 Normal >=60 [facility] Comment on above: Performed By: #### G ELGIN, LIPID #### [facility] [address] [address] [address] Kenna Thomas Globulin (S) [Mass/Vol] 4.0 g/dL Normal [facility] Comment on above: Performed By: #### G ELGIN, LIPID #### [facility] [address] [address] [address] Kenna Thomas Glucose [Mass/Vol] 170 mg/dL Critically high 74-106 [facility] Comment on above: Performed By: #### G ELGIN, LIPID #### [facility] [address] [address] [address] Kenna Thomas Potassium [Moles/Vol] 3.6 mmol/L Normal 3.5-5.1 [facility] Comment on above: Performed By: #### G ELGIN, LIPID #### [facility] [address] [address] [address] Kenna Thomas Protein [Mass/Vol] 7.3 g/dL Normal 6.4-8.2 [facility] Comment on above: Performed By: #### G ELGIN, LIPID #### [facility] [address] [address] [address] Kenna Thomas Sodium [Moles/Vol] 137 mmol/L Normal 136-145 [facility] Comment on above: Performed By: #### G ELGIN, LIPID #### [facility] [address] [address] [address] Kenna Thomas Urea nitrogen [Mass/Vol] 10.0 mg/dL Normal 7.0-18.0 [facility] Comment on above: Performed By: #### G ELGIN, LIPID #### [facility] [address] [address] [address] Kenna Thomas Urea nitrogen/Creatinine [Mass ratio] 12.0 mg/mg Normal [facility] Comment on above: Performed By: #### G ELGIN, LIPID #### [facility] [address] [address] [address] Kenna Thomas GLYCOHEMOGLOBIN A1Con 2021 ADA RECOMMENDATION SEE BELOW Normal [facility] Comment on above: Result Comment: ADA RECOMMENDED LIMIT 4.0 - 6.0 ADA THERAPEUTIC TARGET < 7.0 ACTION SUGGESTED > 7.0 Performed By: #### G ELGIN, LIPID #### [facility] [address] [address] [address] Kenna Thomas Glucose [Mass/Vol] 154 mg/dL Normal [facility] Comment on above: Performed By: #### G ELGIN, LIPID #### [facility] [address] [place] [address] Dr. Kenna Thomas HbA1c (Bld) [Mass fraction] 7.0 % Critically high 4.5-6.2 [facility] Comment on above: Performed By: #### G ELGIN, LIPID #### [facility] [address] [address] [address] Kenna Thomas LIPID PROFILEon 01-09-2022 CHOL-HDL RATIO NORM SEE BELOW Normal [facility] Comment on above: Result Comment: 3.3 - 4.4 LOW RISK 4.4 - 7.1 AVERAGE RISK 7.1 - 11.0 MODERATE RISK >11.0 HIGH RISK Performed By: #### L IPID #### [facility] [address] [place] [address] Dr. Kenna Thomas Cholesterol [Mass/Vol] 186 mg/dL Normal <=200 [facility] Comment on above: Performed By: #### L IPID #### [facility] [address] [address] [address] Kenna Thomas Cholesterol in HDL [Mass/Vol] 31 mg/dL Critically low 40-60 [facility] Comment on above: Performed By: #### L IPID #### [facility] [address] [address] [address] Kenna Thomas Cholesterol in LDL [Mass/Vol] 91.2 mg/dL Normal [facility] Comment on above: Performed By: #### L IPID #### [facility] [address] [address] [address] Kenna Thomas Cholesterol.total/Cho lesterol in HDL [Mass ratio] 6.0 {ratio} Normal [facility] Comment on above: Performed By: #### L IPID #### [facility] [address] [address] [address] Kenna Thomas HDL NORMAL > or = 60 mg/dl - LO W CARDIOVASCULAR RISK <40 mg/dl - HIGH CARDIOVASCULAR RISK Normal [facility] Comment on above: Performed By: #### L IPID #### [facility] [address] [address] [address] Kenna Thomas LDL CALC NORMAL SEE BELOW Normal [facility] Comment on above: Result Comment: <100 mg/dl OPTIMAL 100 - 129 mg/dl NEAR OR ABOVE OPTIMAL 130 - 159 mg/dl BORDERLINE HIGH 160 - 189 mg/dl HIGH >190 mg/dl VERY HIGH Performed By: #### L IPID #### [facility] [address] [address] [address] Kenna Thomas Triglyceride [Mass/Vol] 319 mg/dL Critically high <=150 [facility] Comment on above: Performed By: #### L IPID #### [facility] [address] [address] [address] Kenna Thomas VLDL CALC 63.8 mg/dL Normal [facility] Comment on above: Performed By: #### L IPID #### [facility] [address] [address] [address] Kenna Thomas TESTOSTERONE, TOTALon 2021 Testosterone [Mass/Vol] 447 ng/dL Normal 264-916 [facility] Comment on above: Result Comment: Adul t male reference interval is based on a population of healthy nonobese males (BMI <30) between 19 and 39 years old. Doug et.al. JCEM 2017,102;1135-0436. PMID: [id number]. Performed By: #### T ESTTOT #### [facility] [address] [address] [address] Kenna Thomas GLUCOSE BLOODon 12-08-2021 Glucose [Mass/Vol] 147 mg/dL Critically high 74-106 [facility] Comment on above: Performed By: #### G ELGIN, LIPID #### [facility] [address] [address] [address] Kenna Thomas LIPID PROFILEon 12-08-2021 CHOL-HDL RATIO NORM SEE BELOW Normal [facility] Comment on above: Result Comment: 3.3 - 4.4 LOW RISK 4.4 - 7.1 AVERAGE RISK 7.1 - 11.0 MODERATE RISK >11.0 HIGH RISK Performed By: #### G ELGIN, LIPID #### [facility] [address] [address] [address] Kenna Thomas Cholesterol [Mass/Vol] 140 mg/dL Normal <=200 [facility] Comment on above: Performed By: #### G ELGIN, LIPID #### [facility] [address] [address] [address] Kenna Thomas Cholesterol in HDL [Mass/Vol] 33 mg/dL Critically low 40-60 [facility] Comment on above: Performed By: #### G ELGIN, LIPID #### [facility] [address] [address] [address] Kenna Thomas Cholesterol in LDL [Mass/Vol] 55.4 mg/dL Normal [facility] Comment on above: Performed By: #### G ELGIN, LIPID #### [facility] [address] [address] [address] Kenan Thomas Cholesterol.total/Cho lesterol in HDL [Mass ratio] 4.2 {ratio} Normal [facility] Comment on above: Performed By: #### G ELGIN, LIPID #### [facility] [address] [address] [address] Kenna Thomas HDL NORMAL > or = 60 mg/dl - LO W CARDIOVASCULAR RISK <40 mg/dl - HIGH CARDIOVASCULAR RISK Normal [facility] Comment on above: Performed By: #### G ELGIN, LIPID #### [facility] [address] [address] [address] Kenna Thomas LDL CALC NORMAL SEE BELOW Normal [facility] Comment on above: Result Comment: <100 mg/dl OPTIMAL 100 - 129 mg/dl NEAR OR ABOVE OPTIMAL 130 - 159 mg/dl BORDERLINE HIGH 160 - 189 mg/dl HIGH >190 mg/dl VERY HIGH Performed By: #### G ELGIN, LIPID #### [facility] [address] [place], [place] [address] Dr. Kenna Thomas Triglyceride [Mass/Vol] 258 mg/dL Critically high <=150 [facility] Comment on above: Performed By: #### G ELGIN, LIPID #### [facility] [address] [place], [place] [address] Dr. Kenna Thomas VLDL CALC 51.6 mg/dL Normal [facility] Comment on above: Performed By: #### G ELGIN, LIPID #### [facility] [address] [address] [address] Kenna Thomas Comp Metabolic Profon 2016 (cont.) Normal [facility] Comment on above: Result Comment: Aver age GFR for 40-49 years old: 99 mL/min/1.73sq mChronic Kidney Disease: <60 mL/min/1.73sq mKidney failure: <15 mL/min/1.73sq meGFR calculated using average adult body mass. Additional eGFR calculator available at:http://[email or web address]un/multiple_[email or web address].htmPerformed at [facility] [address] Performed By: #### C P ####[address] [address] Alanine aminotransferase (ALT) 27 U/L Normal 5-41 [facility] Comment on above: Performed By: #### C P ####[address] [address] Albumin 3.7 g/dL Normal 3.5-5.2 [facility] Comment on above: Performed By: #### C P ####[address] [address] Albumin/Globulin Ratio 1.1 {ratio} Normal 1.0-2.5 [facility] Comment on above: Performed By: #### C P ####[address] [address] Alkaline Phos 125 U/L Normal 40-129 [facility] Comment on above: Performed By: #### C P ####[address] [address] Anion gap 14 mmol/L Normal 9-17 [facility] Comment on above: Performed By: #### C P ####[address] [address] Aspartate aminotransferase (AST) 20 U/L Normal <40 [facility] Comment on above: Performed By: #### C P ####[address] [address] Bilirubin Ql (U) 0.28 mg/dL Low 0.3-1.2 [facility] Comment on above: Performed By: #### C P ####[address] [address] Calcium 9.0 mg/dL Normal 8.6-10.4 [facility] Comment on above: Performed By: #### C P ####[address] [address] Chloride 98 mmol/L Normal 98-107 [facility] Comment on above: Performed By: #### C P ####[address] [address] CO2 27 mmol/L Normal 20-31 [facility] Comment on above: Performed By: #### C P ####[address] [address] Creatinine 0.74 mg/dL Normal 0.70-1.20 [facility] Comment on above: Performed By: #### C P ####[address] [address] eGFR (non-black) mL/min/{1.73_m2} Normal >60 [facility] Comment on above: Performed By: #### C P ####[address] [address] Glucose mass conc 142 mg/dL High 70-99 [facility] Comment on above: Performed By: #### C P ####[address] [address] Potassium molar conc 4.2 mmol/L Normal 3.7-5.3 [facility] Comment on above: Performed By: #### C P ####[address] [address] Protein 7.0 g/dL Normal 6.4-8.3 [facility] Comment on above: Performed By: #### C P ####[address] [address] Sodium 139 mmol/L Normal 135-144 [facility] Comment on above: Performed By: #### C P ####[address] [address] Urea nitrogen 9 mg/dL Normal 6-20 [facility] Comment on above: Performed By: #### C P ####[address] [address] BUN/CRE Ratio NOT REPORTED Normal 9-20 [facility] Comment on above: Performed By: #### C P ####[address] [address] Staging: NOT REPORTED Normal [facility] Comment on above: Performed By: #### C P ####[address] [place] [address] Drug Scr, Abuse, Uron 2016 Amphetamine(s),Ur Negative Normal NEG [facility] Comment on above: Result Comment: (Pos itive cutoff 1000 ng/mL) Performed By: #### U A, UMICAO, YAZMIN ####[address] [address] Barbiturate(s),Ur Negative Normal NEG [facility] Comment on above: Result Comment: (Pos itive cutoff 200 ng/mL) Performed By: #### U A, UMICAO, YAZMIN ####[address] [address] Base excess Negative Normal NEG [facility] Comment on above: Result Comment: (Pos itive cutoff 300 ng/mL) Performed By: #### U A, UMICAO, YAZMIN ####[address] [address] Benzodiazepine(s) Negative Normal NEG [facility] Comment on above: Result Comment: (Pos itive cutoff 200 ng/mL) Performed By: #### U A, UMICAO, YAZMIN ####[address] [address] Cannabinoid(s),Ur Negative Normal NEG [facility] Comment on above: Result Comment: (Pos itive cutoff 50 ng/mL) Performed By: #### U A, UMICAO, YAZMIN ####[address] [address] Interpretive Info Assay provides medic al screening only. The absence of expected drug(s) and/or Normal [facility] Comment on above: Result Comment: meta bolite(s) may indicate diluted or adulterated urine, limitations of testing or timing of collection.Testing for legal purposes should be confirmed by another method. To request confirmation of test result, please call the lab within 7 days of sample submission.Performed at [facility] [address] [place] [address] Performed By: #### KOMAL Hays AYZMIN ####[address] [address] Opiate(s), Ur Negative Normal NEG [facility] Comment on above: Result Comment: (Pos itive cutoff 300 ng/mL) Performed By: #### U AKOMAL YAZMIN ####[address] [address] Oxycodone, Urine Negative Normal NEG [facility] Comment on above: Result Comment: (Pos itive cutoff 100 ng/mL) Performed By: #### U AKOMAL YAZMIN ####[address] [address] Phencyclidine, Ur Negative Normal NEG [facility] Comment on above: Result Comment: (Pos itive cutoff 25 ng/mL) Performed By: #### U AKOMAL YAZMIN ####[address] [address] Urine, methadone presence Negative Normal NEG [facility] Comment on above: Result Comment: (Pos itive cutoff 300 ng/mL) Performed By: #### U A UMJAZZ, YAZMIN ####[address] [address] Buprenorphrine, Ur NOT REPORTED Normal NEG [facility] Comment on above: Performed By: #### U AKOMAL, YAZMIN ####[address] [address] MDMA, Urine NOT REPORTED Normal NEG [facility] Comment on above: Performed By: #### U A, UMICAO, YAZMIN ####[address] [address] Methamphetamine, Ur NOT REPORTED Normal NEG [facility] Comment on above: Performed By: #### U A, UMICAO, YAZMIN ####[address] [address] Propoxyphene,Urine NOT REPORTED Normal NEG [facility] Comment on above: Performed By: #### U A, UMICAO, YAZMIN ####[address] [address] Urine, tricyclic antidepressants NOT REPORTED Normal NEG [facility] Comment on above: Performed By: #### U A, UMICAO, YAZMIN ####[address] [address] Urinalysis, Routineon 2016 Acetaminophen mass conc Negative Normal NEG [facility] Comment on above: Performed By: #### U A, UMICAO, YAZMIN ####[address] [address] Bilirubin (direct) Negative Normal NEG [facility] Comment on above: Performed By: #### U A, UMICAO, YAZMIN ####[address] [address] Hemoglobin mass conc (Bld) TRACE Abnormal NEG [facility] Comment on above: Performed By: #### U A, UMICAO, YAZMIN ####[address] [address] Nitrite,Ur Negative Normal NEG [facility] Comment on above: Performed By: #### U A, UMICAO, YAZMIN ####[address] [address] Turbidity CLEAR Normal CLEAR [facility] Comment on above: Performed By: #### U A, UMICAO, YAZMIN ####[facility] [place] [address] Urine, color YELLOW Normal YEL [facility] Comment on above: Performed By: #### U A, UMICAO, YAZMIN ####[facility] [place] [address] [place] [address] Urine, glucose presence Negative Normal NEG [facility] Comment on above: Performed By: #### U A, UMICAO, YAZMIN ####[address] [address] Urine, leukocyte esterase presence Negative Normal NEG [facility] Comment on above: Result Comment: Perf ormed at [facility] [address] [place] [address] Performed By: #### U A, UMICAO, YAZMIN ####[facility] [place] [address] [place] [address] Urine, pH 6.0 [pH] Normal 5.0-8.0 [facility] Comment on above: Performed By: #### U A, UMICAO, YAZMIN ####[address] [address] Urine, protein presence Negative Normal NEG [facility] Comment on above: Performed By: #### U A, UMICAO, YAZMIN ####[facility] [place] [address] Urine, specific gravity 1.007 Normal 1.000-1.030 [facility] Comment on above: Performed By: #### U A, UMICAO, YAZMIN ####[address] [address] Urobilinogen,Ur Normal Normal NORM [facility] Comment on above: Performed By: #### U A, UMICAO, YAZMIN ####[address] [address] Comment NOT REPORTED Normal [facility] Comment on above: Performed By: #### U A, UMICAO, YAZMIN ####[address] [address] Urinalysis,Microon 7 ----- Normal [facility] Comment on above: Performed By: #### U A, UMICAO, YAZMIN ####[address] [address] Urine WBC's 0 TO 2 Normal [facility] Comment on above: Performed By: #### U A, UMICAO, YAZMIN ####[address] [address] Urine, bacteria in sediment FEW Abnormal NONE [facility] Comment on above: Result Comment: Perf ormed at [facility] [address] [place] [address] Performed By: #### U A, UMICAO, YAZMIN ####[address] [address] Urine, epithelial cells in sediment 0 TO 2 Normal [facility] Comment on above: Performed By: #### U A, UMICAO, YAZMIN ####[address] [address] Urine, erythrocytes 2 TO 5 Normal [facility] Comment on above: Performed By: #### U A, UMICAO, YAZMIN ####[address] [address] Epithelial, Renal NOT REPORTED Normal 0 [facility] Comment on above: Performed By: #### U A, UMICAO, YAZMIN ####[address] [place] [address] Mucus Strands NOT REPORTED Normal [facility] Comment on above: Performed By: #### U A, UMICAO, YAZMIN ####[address] [place] [address] Other Observations NOT REPORTED [facility] Performed By: #### U A, UMICAO, YAZMIN ####[address] [address] Trichomonas NOT REPORTED Normal NONE [facility] Comment on above: Performed By: #### U A, UMICAO, YAZMIN ####[address] [place] [address] Urine, amorphous sediment presence in sediment NOT REPORTED Normal [facility] Comment on above: Performed By: #### U A, UMMARIONO, YAZMIN ####[address] [place] [address] Urine, casts in sediment NOT REPORTED Normal [facility] Comment on above: Performed By: #### U A, UMICAO, YAZMIN ####[address] [place] [address] Urine, crystals in sediment NOT REPORTED Normal NONE [facility] Comment on above: Performed By: #### U A, UMICAO, YAZMIN ####[address] [place] [address] Urine, yeast presence in sediment NOT REPORTED Normal [facility] Comment on above: Performed By: #### U A, UMICAO, YAZMIN ####[address] [place] [address] CBC with Diffon 01-30-2017 Abs. Basophil 0.10 k/uL Normal 0.0-0.2 [facility] Comment on above: Result Comment: Perf ormed at [facility] [address] [place] [address] Performed By: #### C DP, CP ####[facility] [place] [address] Abs.Neutrophil (Seg) 5.40 k/uL Normal 1.3-9.1 [facility] Comment on above: Performed By: #### C DP, CP ####[facility] [place] [address] Basophils/100 WBC Auto (Bld) 1 % Normal [facility] Comment on above: Performed By: #### C DP, CP ####[facility] [place] [address] Eosinophils 0.40 10*3/uL Normal 0.0-0.4 [facility] Comment on above: Performed By: #### C DP, CP ####[facility] [place] [address] Eosinophils/100 leukocytes 5 % Normal [facility] Comment on above: Performed By: #### C DP, CP ####[facility] [place] [address] Erythrocyte distribution width Auto Ratio (RBC) 13.0 % Normal 11.5-14.9 [facility] Comment on above: Performed By: #### C DP, CP ####[address] [address] Erythrocytes (RBC) 4.26 10*6/uL Low 4.5-5.9 [facility] Comment on above: Performed By: #### C DP, CP ####[facility] [place] [address] Hematocrit (HCT) 42.3 % Normal 41-53 [facility] Comment on above: Performed By: #### C DP, CP ####[facility] [place] [address] Hemoglobin mass conc (Bld) 14.5 g/dL Normal 13.5-17.5 [facility] Comment on above: Performed By: #### C DP, CP ####[facility] [place] [address].[place] [address] Lymphocytes 2.20 10*3/uL Normal 1.0-4.8 [facility] Comment on above: Performed By: #### C DP, CP ####[facility] [place] [address].[place] [address] Lymphocytes/100 leukocytes 25 % Normal [facility] Comment on above: Performed By: #### C DP, CP ####[facility] [place] [address].[place] [address] MCH 34.0 pg Normal 26-34 [facility] Comment on above: Performed By: #### C DP, CP ####[facility] [place] [address].[place] [address] MCHC mass conc (RBC) 34.2 g/dL Normal 31-37 [facility] Comment on above: Performed By: #### C DP, CP ####[facility] [place], [place] [address] [place] [address] MCV 99.3 fL Normal 80-100 [facility] Comment on above: Performed By: #### C DP, CP ####[facility] [place], [place] [address] [facility] [place] [address] Monocytes 0.60 10*3/uL Normal 0.1-1.3 [facility] Comment on above: Performed By: #### C DP, CP ####[address] [address] Monocytes/100 leukocytes 7 % Normal [facility] Comment on above: Performed By: #### C DP, CP ####[address] [address] Neutrophil (Seg) 62 % Normal [facility] Comment on above: Performed By: #### C DP, CP ####[address] [address] Platelet mean volume (PMV) 9.1 fL Normal 6.0-12.0 [facility] Comment on above: Performed By: #### C DP, CP ####[address] [address] Platelets 225 10*3/uL Normal 150-450 [facility] Comment on above: Performed By: #### C DP, CP ####[address] [address] WBC (Leukocytes) 8.7 10*3/uL Normal 3.5-11.0 [facility] Comment on above: Performed By: #### C DP, CP ####[address] [address] Auto Diff Performed NOT REPORTED Normal [facility] Comment on above: Performed By: #### C DP, CP ####[address] [address] Erythrocyte morphology NOT REPORTED Normal [facility] Comment on above: Performed By: #### C DP, CP ####[address] [address] Platelets NOT REPORTED Normal [facility] Comment on above: Performed By: #### C DP, CP ####[facility] [place] [address] WBC Morphology NOT REPORTED Normal [facility] Comment on above: Performed By: #### C DP, CP ####[facility] [place] [address] Comp Metabolic Profon 2016 (cont.) Normal [facility] Comment on above: Result Comment: Aver age GFR for 40-49 years old: 99 mL/min/1.73sq mChronic Kidney Disease: <60 mL/min/1.73sq mKidney failure: <15 mL/min/1.73sq meGFR calculated using average adult body mass. Additional eGFR calculator available at:http://[email or web address]un/multiple_crcl_2011.htmPerformed at [facility] [address] [place] [address] Performed By: #### C DP, CP ####[facility] [place] [address] Alanine aminotransferase (ALT) 20 U/L Normal 5-41 [facility] Comment on above: Performed By: #### C DP, CP ####[facility] [place] [address] Albumin 3.3 g/dL Low 3.5-5.2 [facility] Comment on above: Performed By: #### C DP, CP ####[facility] [place] [address] Alkaline Phos 120 U/L Normal 40-129 [facility] Comment on above: Performed By: #### C DP, CP ####[facility] [place] [address] Anion gap 12 mmol/L Normal 9-17 [facility] Comment on above: Performed By: #### C DP, CP ####[address] [address] Aspartate aminotransferase (AST) 26 U/L Normal <40 [facility] Comment on above: Performed By: #### C DP, CP ####[address] [address] Bilirubin Ql (U) 0.29 mg/dL Low 0.3-1.2 [facility] Comment on above: Performed By: #### C DP, CP ####[address] [address] Calcium 8.4 mg/dL Low 8.6-10.4 [facility] Comment on above: Performed By: #### C DP, CP ####[address] [address] Chloride 104 mmol/L Normal 98-107 [facility] Comment on above: Performed By: #### C DP, CP ####[address] [address] CO2 27 mmol/L Normal 20-31 [facility] Comment on above: Performed By: #### C DP, CP ####[address] [address] Creatinine 0.70 mg/dL Normal 0.70-1.20 [facility] Comment on above: Performed By: #### C DP, CP ####[address] [address] eGFR (non-black) mL/min/{1.73_m2} Normal >60 [facility] Comment on above: Performed By: #### C DP, CP ####[address] [address] Glucose mass conc 117 mg/dL High 70-99 [facility] Comment on above: Performed By: #### C DP, CP ####[facility] [place] [address].[place] [address] Potassium molar conc 3.1 mmol/L Low 3.7-5.3 [facility] Comment on above: Performed By: #### C DP, CP ####[facility] [place] [address] Protein 6.2 g/dL Low 6.4-8.3 [facility] Comment on above: Performed By: #### C DP, CP ####[facility] [place] [address] Sodium 143 mmol/L Normal 135-144 [facility] Comment on above: Performed By: #### C DP, CP ####[facility] [place] [address] [place] [address] Urea nitrogen 5 mg/dL Low 6-20 [facility] Comment on above: Performed By: #### C DP, CP ####[facility] [place] [address] [place] [address] Albumin/Globulin Ratio NOT REPORTED Normal 1.0-2.5 [facility] Comment on above: Performed By: #### C DP, CP ####[facility] [place] [address] [place] [address] BUN/CRE Ratio NOT REPORTED Normal 9-20 [facility] Comment on above: Performed By: #### C DP, CP ####[facility] [place] [address] [place] [address] Staging: NOT REPORTED Normal [facility] Comment on above: Performed By: #### C DP, CP ####[facility] [place] [address] Vital Signs Date Time Vital Sign Value Performing Clinician Ryan feliz 11-15-2022 14:53-0400 Blood Pressure Location AMITA REBECCA [facility] 11-15-2022 14:53-0400 Diastolic blood pressure 74 mm[Hg] AMITA REBECCA [facility] 11-15-2022 14:53-0400 Heart rate 68 /min AMITA REBECCA [facility] 11-15-2022 14:53-0400 Respiratory rate 16 /min AMITA REBECCA [facility] 11-15-2022 14:53-0400 Systolic blood pressure 138 mm[Hg] AMITA REBECCA [facility] 01-17-2022 10:08-0400 Blood Pressure Location Tee Almendarez Jr. [facility] 01-17-2022 10:08-0400 Diastolic blood pressure 79 mm[Hg] Tee Almendarez Jr. [facility] 01-17-2022 10:08-0400 Heart rate 81 /min Tee Almendarez Jr. [facility] 01-17-2022 10:08-0400 Respiratory rate 16 /min Tee Almendarez Jr. [facility] 01-17-2022 10:08-0400 Systolic blood pressure 138 mm[Hg] Tee Almendarez Jr. [facility] 11-15-2021 09:32-0400 Blood Pressure Location Tee Almendarez Jr. [facility] 11-15-2021 09:32-0400 Diastolic blood pressure 76 mm[Hg] Tee Almendarez Jr. [facility] 11-15-2021 09:32-0400 Heart rate 97 /min Tee Almendarez Jr. [facility] 11-15-2021 09:32-0400 Respiratory rate 18 /min Tee Almendarez Jr. [facility] 11-15-2021 09:32-0400 Systolic blood pressure 112 mm[Hg] Tee Almendarez Jr. [facility] Encounters Encounter Date Encounter Type Care Provider Facility Start: 04-03-2024 ambulatory AMITA Granti ty:[facility] Start: 03-18-2024 ambulatory Kota Carvalho acility:[facility] Start: 03-06-2024 End: 03-06-2024 ambulatory ASHANTI NICHOLS Not Available Start: 12-31-2023 End: 12-31-2023 ambulatory STONE FAWWAD Not Available Start: 11-29-2023 End: 11-29-2023 ambulatory STONE FAWWAD Not Available Start: 11-20-2023 ambulatory AMITAJOSHUA FERNANDEZ Facili ty:[facility] Start: 10-25-2023 End: 10-25-2023 ambulatory TYRESE TRUJILLO Not Available Start: 10-08-2023 End: 10-08-2023 ambulatory STONE FAWWAD Not Available Start: 09-10-2023 End: 09-10-2023 ambulatory STONE FAWWAD Not Available Start: 08-06-2023 End: 08-06-2023 ambulatory STONE FAWWAD Not Available Start: 08-06-2023 End: 08-06-2023 ambulatory STONE FAWWAD Not Available Start: 06-26-2023 End: 06-26-2023 ambulatory STONE FAWWAD Not Available Start: 06-26-2023 End: 06-26-2023 ambulatory STONE FAWWAD Not Available Start: 11-24-2022 End: 11-25-2022 ambulatory STONE H FAWWAD Facility:[facility] Start: 11-15-2022 End: 11-15-2022 Patient encounter procedure AMITA FERNANDEZ [facility] Start: 04-18-2022 End: 04-19-2022 ambulatory STONE H FAWWAD Facility:[facility] Start: 03-24-2022 End: 03-24-2022 ambulatory STONE H FAWWAD Facility:[facility] Start: 03-11-2022 End: 03-11-2022 ambulatory STONE H FAWWAD Facility:[facility] Start: 02-16-2022 ambulatory STONE H FAWWAD Facilit y:[facility] Start: 01-17-2022 End: 01-17-2022 Patient encounter procedure Tee Almendarez Jr. [facility] Start: 01-09-2022 End: 01-10-2022 ambulatory STONE H FAWWAD Facility:[facility] Start: 12-08-2021 End: 12-09-[address] TEE Lopez Facility:[facility] Start: 11-15-2021 End: 11-15-2021 Patient encounter procedure Tee Almendarez Jr. [facility] Start: 04-28-2021 End: 05-04-2021 ambulatory UNKNOWN PROVIDER Facility:[facility] Start: 01-29-2017 End: 02-05-2017 Evaluation and management of inpatient KUL B PIERRE [facility] Procedures Date Procedure Procedure Detail Performing Clinician [...] cility 01-01-2021 SARS-CoV-2 (COVID-19 ) mRNA BNT-162b2 vax AMITA FERNANDEZ [facility] Comment on above: Result Comment: 2022: TPV40 12-11-2020 SARS-CoV-2 (COVID-19 ) mRNA BNT-162b2 vax AMITA FERNANDEZ [facility] Comment on above: Result Comment: 2022: [id number] Payers Date Payer Category Payer Self-pay 2021 Unknown [id number] 2016 Medicare [id number] 1970 Unknown [id number] 2.16. [id number] 1972 Unknown [id number] 2.16.84 0.1.403646.3.579.2.593 1972 Unknown [id number] 2.16.84 0.1.514180.3.579.2.593 1972 Unknown [id number] 2.16.84 0.1.899918.3.579.2.593 1972 Unknown [id number] 2.16.84 0.1.124589.3.579.2.593 1972 Unknown [id number] 2.16.84 0.1.531972.3.579.2.593 1972 Unknown [id number] 2.16.84 0.1.923794.3.579.2.593 1972 Unknown [id number] 2.16.84 0.1.767249.3.579.2.593 1972 Unknown [id number] 2.16.84 0.1.723258.3.579.2.593 1972 Unknown [id number] 2.16.84 0.1.350506.3.579.2.1259 1972 Unknown [id number] 2.16.840 .1.790451.3.579.2.1259 1972 Unknown [id number] 2.16.84 0.1.306514.3.579.2.1259 1972 Unknown [id number] 2.16.84 0.1.132126.3.579.2.1259 1972 Unknown [id number] 2.16.84 0.1.857708.3.579.2.1259 1972 Unknown [id number] 2.16.84 0.1.008461.3.579.2.1259 1972 Unknown [id number] 2.16.84 0.1.267441.3.579.2.1259 1972 Unknown [id number] 2.16.84 0.1.843114.3.579.2.1259 1972 Unknown [id number] 2.16.8 40.1.081038.3.579.2.727 1972 Unknown [id number] 2.16.8 40.1.197675.3.579.2.727 1959 Medicare [id number] Unknown [id number] 2.16.8 40.1.565422.3.579.2.531 Social History Date Type Detail Facility Tobacco Current, Cigaret yao, 40 per day. [facility] Sex Assigned At Male [facility] Start: 01-17-2022 End: 11-15-2022 Tobacco smoking status Heavy tobacco smoker (finding) [facility] Functional Status Date Assessment Result Facility 11-15-2022 Functional Status N/A [facility] 01-17-2022 Functional Status N/A [facility] Hospital Discharge instructions 11-15-2022 Note Date & [...] Follow these instructions at home: Medicines Take grjz-fki-hajegsr and prescription medicines only as told by [...] provider. Document Revised: 09/28/2021 Document Reviewed: 09/28/2021 [employer] Patient Education 2022 [employer]. Follow Up Care 10/31/2022 09:47:32 With:REBECCA OLIVEIRA, AMITA Huang, URL Address: [address] [facility] [place] [address] When: Unknown [facility] Hospital Discharge instructions 01-17-2022 Note Date & [...] Follow these instructions at home: Medicines Take witc-oez-ratqpaz and prescription medicines only as told by [...] 06/29/2001 Document Revised: 06/14/2018 Document Reviewed: 07/18/2017 [employer] Patient Education 2020 [employer]. Follow Up Care 11/15/2021 10:33:52 With:Erickson Brooks MD, Tee Brush, URO Address: [facility] [address] [place] [phone] When:02/28/2022 [facility] Discharge instructions 11-15-2021 Note Date & [...] Follow these instructions at home: Medicines Take fsrk-xpl-hizcski and prescription medicines only as told by [...] 06/29/2001 Document Revised: 06/14/2018 Document Reviewed: 07/18/2017 [employer] Patient Education 2020 [employer]. Follow Up Care 08/23/2021 10:12:56 With:Tee Almendarez Jr., MD, URO Address: [facility] [address] [place] [address]- When:01/15/2022 [facility] Evaluation + Plan note Note Date & Type Note Facility Evaluation + Plan note Future Appointments Appointment Date:01/17/2022 09:45:00 AM Scheduled Provider:Tee Almendarez Jr., MD Location:[facility] Appointment Type:URO Office Visit Diagnostic Tests PendingTestosterone Level Total 11/15/21 [facility] Evaluation + Plan note Note Date & Type Note Facility Evaluation + Plan note Future Appointments Appointment Date:03/07/2022 08:45:00 AM Scheduled Provider:Tee Almendarez Jr., MD Location:[facility] Appointment Type:URO Office Visit [facility] Evaluation + Plan note Note Date & Type Note Facility Evaluation + Plan note Future Appointments Appointment Date:11/20/2023 09:00:00 AM Scheduled Provider:AMITA FERNANDEZ PA-C Location:[facility] Appointment Type:URO Office Visit [facility] Hospital course Narrative Note Date & Type Note Facility Hospital course Narrative No data available for this section [facility] Progress note Note Date & Type Note Facility Progress note No data available for this section [facility] Summary Purpose Family History No Family History [...] section and content) DATE CREATED AUTHOR 01/09/2018 [facility] DATE CREATED AUTHOR AUTHOR'S ORGANIZ ATION 05/06/2021 [facility] DATE CREATED AUTHOR AUTHOR'S ORGANIZ ATION 11/27/2022 [facility] DATE CREATED AUTHOR AUTHOR'S ORGANIZ ATION 08/06/2023 [facility] EPIC DATE CREATED AUTHOR AUTHOR'S ORGANIZ ATION 03/08/2024 [facility] EPIC DATE CREATED AUTHOR AUTHOR'S ORGANIZ ATION 03/19/2024 [facility] DATE CREATED AUTHOR AUTHOR'S ORGANELSA ATION 04/03/2024 Ganga Roth [facility] Care Team (unrecognized sect ion and content) Personnel Name: SHAIKH SIMS Address: [address] [place] [address] [place] Name: Terri Brito Personnel Name: SHAIKH SIMS Address: Address: [facility] [address] [place], [facility] [place] Name: Terri Brito FOR RECORDS PERTAINING [...] BE BASED ON THE PRIMARY CLINICAL RECORDS. [employer] provides no warranty or guarantee of the accuracy or completeness of information in this document.
[2024-04-03 12:18] LABS: Estimated Average Glucose 237 mg/dL; Glycohemoglobin A1C 9.9 % (4.5-6.2)
== END 2024-04-03 11:50 | disposition home or self-care (01) ==
LOC: LAB 11:53
DX: Z79.4 Long term (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 of insulin (principal); E11.9 Type 2 diabetes mellitus without complications
CPT/HCPCS: 36415; 83036

== ENCOUNTER 2024-04-04 09:18 | Emergency (ER) | payer MEDICARE, SELFPAY ==
--- NOTE | 2024-04-04 09:29 | PC.NURSE ---
Patient came into room proceeded to triage patient. Patient C/o Tingling all over like he was being shocked. Proceeded to described that this tingling involved his penis and that he was aroused. Patient also stated that his psychiatrist had changed his medication but he felt this had nothing to do with his symptoms. Nurse came in to assist with vitals and noticed patient was video taping with his phone. he was confronted and told he could not use video in the hospital he became angry and yelled to take off blood pressure cuff then walked out of the hospital without being seen.
== END 2024-04-04 09:34 | disposition left against medical advice (07) ==
PROVIDERS: Emergency Provider Emergency Medicine
DX: Z53.21 Procedure and treatment not carried out due to patient leaving prior to being seen by health care provider (principal)

== ENCOUNTER 2024-06-26 07:44 | Emergency (ER) | payer MEDICARE, SELFPAY ==
[2024-06-26] VITALS (21 sets, daily range): BP systolic 131–138; BP diastolic 73–101; PULSE 75–100; TEMP 36.6; O2SAT 79–97; BMI 40.7
--- NOTE | 2024-06-26 08:01 | XR_ITS ---
The [address] [address] Patient Name: JOHNNY HAMILTON MRN: [id number] date: 1970 Sex: M Assigned Patient Location: ER Current Patient Location: ED.MAIN Accession/Order Number: [id number] Exam Date: 06/26/2024 08:02 Report Date: 06/26/2024 08:55 At the request of: VAL NATHAN Procedure: XR chest 1V EXAM: XR chest 1V HISTORY: sob COMPARISON: None. TECHNIQUE: FINDINGS: LUNGS: No significant pulmonary parenchymal abnormalities. VASCULATURE: No increased pulmonary vasculature. PLEURA: No pneumothorax, effusion, or pleural thickening. CARDIAC: No cardiomegaly or cardiac silhouette abnormality. MEDIASTINUM: No visible mass or adenopathy. BONES: No fracture or visible bone lesion. OTHER: Negative. XR/XR chest 1V IMPRESSION: No acute cardiopulmonary process. Electronically authenticated by: SREEDHAR JONES Date: 06/26/2024 08:55
--- NOTE | 2024-06-26 08:09 | ECG_ITS ---
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
[2024-06-26 08:36] LABS: Basophils Absolute Auto 0.1 10^3/uL (0.0-0.1); Basophils Percent Auto 0.9 % (0.2-2.0); Eosinophils Absolute Auto 0.3 10^3/uL (0.0-0.7); Eosinophils Percent Auto 3.1 % (0.9-7.0); Hematocrit 45.5 % (42.0-54.0); Hemoglobin 16.8 g/dL (14.0-18.0); Immature Granulocytes Abs Auto 0.04 10^3/uL (0.00-0.03); Immature Granulocytes Pct Auto 0.5 % (0.0-0.5); Lymphocytes Absolute Auto 1.9 10^3/uL (1.2-3.8); Lymphocytes Percent Auto 21.8 % (20.5-60.0); Mean Corpuscular HGB Conc 36.9 g/dL (29.9-35.2); Mean Corpuscular Hemoglobin 34.6 pg (25.9-34.0); Mean Corpuscular Volume 93.6 fL (80.0-94.0); Mean Platelet Volume 10.2 fL (9.5-13.5); Monocytes Absolute Auto 0.8 10^3/uL (0.3-0.8); Monocytes Percent Auto 9.4 % (1.7-12.0); Neutrophils Absolute Auto 5.5 10^3/uL (1.4-6.5); Neutrophils Percent Auto 64.3 % (43.0-75.0); Platelet Count 199 10^3/uL (150-450); Red Blood Count 4.86 10^6/uL (4.70-6.10); White Blood Count 8.6 10^3/uL (4.0-11.0)
[2024-06-26 08:56] LABS: Alkaline Phosphatase 186 U/L (46-116); Anion Gap 23.8; BUN Creatinine Ratio 12.4; Bilirubin Total 0.6 mg/dL (0.2-1.0); Calcium 8.2 mg/dL (8.5-10.1); Carbon Dioxide 20.2 mmol/L (21.0-32.0); Chloride 96 mmol/L (98-107); Estimated GFR (African America >60 (>=60 mL/min/1.73m^2); Estimated GFR (Non-African Ame >60 (>=60 mL/min/1.73m^2); Sodium 136 mmol/L (136-145); Troponin I High Sensitivity 6.3 pg/mL (4.0-76.1)
--- NOTE | 2024-06-26 08:57 | ED.SOB1 ---
HPI - SOB/Dyspnea General Chief Complaint: Shortness of Breath/Dyspnea Stated Complaint: sob Time Seen by Provider: 06/26/24 08:01 Source: patient Mode of arrival: walk-in Limitations: no limitations History of Present Illness HPI Narrative: The patient presented to us with a shortness of breath on exertion that been going on at least for the last 3 weeks, he mentioned also that he has some sore throat that resolved over the last few days but that was not initially his complaint 3 weeks ago Patient denies any shortness of breath at the moment he denies any nausea vomiting chills but he mentioned that whenever he take few steps sometimes although sometimes he will be having no difficulty like today when he was walking from his car to the ER The patient has a history of diabetes and he has stopped taking his medication including his insulin because he wanted to try some holistic medicine The patient had 30 years history of smoking cigarette and he just quit last month smoking cigarette Patient have no recent stress test he had 1 done 8 years ago and he had no previous medical history of coronary artery disease Related Data Home Medications ?Medication ?Instructions ?Recorded ?Confirmed cariprazine 6 mg capsule (Vraylar) 6 mg PO DAILY 06/26/24 06/26/24 Allergies Allergy/AdvReac Type Severity Reaction Status Date / Time naproxen AdvReac Severe Palpitation Verified 06/26/24 07:56 s metformin AdvReac Mild constipatio Verified 06/26/24 07:56 n Review of Systems ROS Status of ROS 10 or more systems reviewed and unremarkable except as noted in history and below PFSH PFSH Social History Little interest or pleasure in doing things: not at all Feeling down, depressed, or hopeless: not at all Exam Narrative Exam Narrative: Nurses notes and vital signs reviewed and patient is not hypoxic. General: Well-appearing and in no apparent distress. Skin: Warm, dry, no pallor noted. No rash. Head: Normocephalic, atraumatic. Neck: Supple, non-tender. Eye: Pupils are equal, round and EOMI. No scleral icterus. Ears, Nose, Mouth, and Throat: TM are clear, no nasal mucosal hypertrophy. Oral mucosa is moist, no posterior oropharynx erythema, uvula is mid-line Cardiovascular: Regular Rate and Rhythm without murmur, gallop or rub. Respiratory: No accessory muscle use or respiratory distress. Lungs are clear to auscultation, no wheezing, rales or rhonchi Chest Wall: no tenderness Back: No midline thoracic or lumbar vertebral tenderness. No CVA tenderness Musculoskeletal: normal ROM, no calf or popliteal tenderness, no lower extremity edema/swelling GI: Abdomen is soft, non-distended. Normal bowel sounds. No masses appreciated. No tenderness to palpation. No rebound, guarding, or rigidity noted. Neurological: A&O x4. No cranial nerve dysfunction observed. No truncal ataxia. Moves all extremities. Sensation intact. Psychiatric: Cooperative and interactive. Normal mood and affect. Constitutional Vital Signs, click to edit/add: Last Vital Signs Temp 97.9 F 06/26/24 07:51 Pulse 94 H 06/26/24 11:30 Resp 11 L 06/26/24 10:50 BP 137/84 06/26/24 11:01 Pulse Ox 97 06/26/24 11:20 O2 Del Method Room Air 06/26/24 07:51 Course Vital Signs Vital signs: Vital Signs Temperature 97.9 F 06/26/24 07:51 Pulse Rate 97 H 06/26/24 07:51 Respiratory Rate 18 06/26/24 07:51 Blood Pressure 138/101 H 06/26/24 07:51 Pulse Oximetry 97 06/26/24 07:51 Oxygen Delivery Method Room Air 06/26/24 07:51 Temperature 97.9 F 06/26/24 07:51 Pulse Rate 94 H 06/26/24 11:30 Respiratory Rate 11 L 06/26/24 10:50 Blood Pressure 137/84 06/26/24 11:01 Pulse Oximetry 97 06/26/24 11:20 Oxygen Delivery Method Room Air 06/26/24 07:51 MDM - SOB/Dyspnea MDM Narrative Medical decision making narrative: The patient EKG in the ER showing sinus rhythm with a heart rate of [address] elevation or depression but nonspecific changes of T wave inversion lead III and lead V3 no previous EKG for comparison Patient CBC and chemistry shows elevated blood sugar with a mild acidosis He was started on IV fluids and his blood sugar was trending down after he was provided with some insulin here in the ER mostly 8 units of regular insulin Patient also provided with 1 L of fluid he was instructed with the importance of taking his insulin as it is mostly causing him to have metabolic acidosis I also explained to the patient since he have multiple risk factors including diabetes the patient need to follow-up with cardiology for a stress test meanwhile the patient will be monitoring his symptoms In case of any worsening of symptoms or any chest pain he is to come back to the ER it was noted that the patient was eager to go home he had requested coffee multiple time and he just wanted to leave as he is feeling better The patient is to follow up with primary care physician in next 2-3 days or to return to the emergency department should any of the signs or symptoms worsen or new symptoms develop. The patient agrees with the following Diagnosis and Treatment plan and the patient will be discharged home. Lab Data Labs: Lab Results 06/26/24 06/26/24 06/26/24 Range/Units 08:25 09:53 10:44 WBC 8.6 (4.0-11.0) 10^3/uL RBC 4.86 (4.70-6.10) 10^6/uL Hgb 16.8 (14.0-18.0) g/dL Hct 45.5 (42.0-54.0) % MCV 93.6 (80.0-94.0) fL MCH 34.6 H (25.9-34.0) pg MCHC 36.9 H (29.9-35.2) g/dL RDW 11.0 (11.0-15.0) % Plt Count 199 (150-450) 10^3/uL MPV 10.2 (9.5-13.5) fL Neut % (Auto) 64.3 (43.0-75.0) % Lymph % (Auto) 21.8 (20.5-60.0) % [place] % (Auto) 9.4 (1.7-12.0) % Eos % (Auto) 3.1 (0.9-7.0) % Baso % (Auto) 0.9 (0.2-2.0) % Neut # (Auto) 5.5 (1.4-6.5) 10^3/uL Lymph # (Auto) 1.9 (1.2-3.8) 10^3/uL [place] # (Auto) 0.8 (0.3-0.8) 10^3/uL Eos # (Auto) 0.3 (0.0-0.7) 10^3/uL Baso # (Auto) 0.1 (0.0-0.1) 10^3/uL Abs Immat Gran (auto) 0.04 H (0.00-0.03) 10^3/uL Imm/Tot Granulo (auto) 0.5 (0.0-0.5) % Sodium 136 (136-145) mmol/L Potassium 4.0 (3.5-5.1) mmol/L Chloride 96 L (98-107) mmol/L Carbon Dioxide 20.2 L (21.0-32.0) mmol/L Anion Gap 23.8 BUN 15.0 (7.0-18.0) mg/dL Creatinine 1.21 (0.70-1.30) mg/dL Est GFR ( Amer) >60 (>=60 mL/min/1.73m^2) Est GFR (Non-Af Amer) >60 (>=60 mL/min/1.73m^2) BUN/Creatinine Ratio 12.4 Glucose 490 H (74-106) mg/dL Calcium 8.2 L (8.5-10.1) mg/dL Total Bilirubin 0.6 (0.2-1.0) mg/dL AST 16 (15-37) U/L ALT 40 (16-63) U/L Alkaline Phosphatase 186 H (46-116) U/L Troponin I High Sens 6.3 (4.0-76.1) pg/mL Total Protein 7.0 (6.4-8.2) g/dL Albumin 3.0 L (3.4-5.0) g/dL Globulin 4.0 g/dL Albumin/Globulin Ratio 0.8 Urine Color Lt. yellow (YELLOW) Urine Clarity Clear (CLEAR) Urine pH 5.5 (5.0-9.0) Ur Specific [place] 1.015 (1.005-1.025) Urine Protein Negative (NEG/TRACE) mg/dL Urine Glucose (UA) >=1000 A (NEGATIVE) mg/dL Urine Ketones Negative (NEGATIVE) mg/dL Urine Occult Blood Negative (NEGATIVE) Urine Nitrite Negative (NEGATIVE) Urine Bilirubin Negative (NEGATIVE) Urine Urobilinogen 0.2 (0.2-1.0) EU/dL Ur Leukocyte Esterase Negative (NEGATIVE) POC Glucose 334 H (74-106) mg/dL 12/12/24 Range/Units 11:38 WBC (4.0-11.0) 10^3/uL RBC (4.70-6.10) 10^6/uL Hgb (14.0-18.0) g/dL Hct (42.0-54.0) % MCV (80.0-94.0) fL MCH (25.9-34.0) pg MCHC (29.9-35.2) g/dL RDW (11.0-15.0) % Plt Count (150-450) 10^3/uL MPV (9.5-13.5) fL Neut % (Auto) (43.0-75.0) % Lymph % (Auto) (20.5-60.0) % [place] % (Auto) (1.7-12.0) % Eos % (Auto) (0.9-7.0) % Baso % (Auto) (0.2-2.0) % Neut # (Auto) (1.4-6.5) 10^3/uL Lymph # (Auto) (1.2-3.8) 10^3/uL [place] # (Auto) (0.3-0.8) 10^3/uL Eos # (Auto) (0.0-0.7) 10^3/uL Baso # (Auto) (0.0-0.1) 10^3/uL Abs Immat Gran (auto) (0.00-0.03) 10^3/uL Imm/Tot Granulo (auto) (0.0-0.5) % Sodium (136-145) mmol/L Potassium (3.5-5.1) mmol/L Chloride (98-107) mmol/L Carbon Dioxide (21.0-32.0) mmol/L Anion Gap BUN (7.0-18.0) mg/dL Creatinine (0.70-1.30) mg/dL Est GFR ( Amer) (>=60 mL/min/1.73m^2) Est GFR (Non-Af Amer) (>=60 mL/min/1.73m^2) BUN/Creatinine Ratio Glucose (74-106) mg/dL Calcium (8.5-10.1) mg/dL Total Bilirubin (0.2-1.0) mg/dL AST (15-37) U/L ALT (16-63) U/L Alkaline Phosphatase (46-116) U/L Troponin I High Sens (4.0-76.1) pg/mL Total Protein (6.4-8.2) g/dL Albumin (3.4-5.0) g/dL Globulin g/dL Albumin/Globulin Ratio Urine Color (YELLOW) Urine Clarity (CLEAR) Urine pH (5.0-9.0) Ur Specific [place] (1.005-1.025) Urine Protein (NEG/TRACE) mg/dL Urine Glucose (UA) (NEGATIVE) mg/dL Urine Ketones (NEGATIVE) mg/dL Urine Occult Blood (NEGATIVE) Urine Nitrite (NEGATIVE) Urine Bilirubin (NEGATIVE) Urine Urobilinogen (0.2-1.0) EU/dL Ur Leukocyte Esterase (NEGATIVE) POC Glucose 302 H (74-106) mg/dL Discharge Plan Discharge Chief Complaint: Shortness of Breath/Dyspnea Clinical Impression: Acute hyperglycemia, Breath shortness Patient Disposition: Home, Self-Care Time of Disposition Decision: 11:53 Condition: Good Mode of Transportation: Private Vehicle Prescriptions / Home Meds: No Action Vraylar 6 mg capsule 6 mg PO DAILY Print Language: Eritre[place] Instructions: Diabetic Hyperglycemia (ED) Referrals: ASHANTI NICHOLS [Primary Care Provider] - 1 week HANNAH THOMAS MD [Physician] - 1 week Discharge Date/Time: 06/26/24 11:59
[2024-06-26 09:18] LABS: Albumin Globulin Ratio 0.8
[2024-06-26 09:19] LABS: Glucose 490 mg/dL (74-106)
[2024-06-26 09:48] LABS: Alanine Aminotransferase 40 U/L (16-63); Aspartate Amino Transferase 16 U/L (15-37)
[2024-06-26] MEDS: 0.9 % SODIUM CHLORIDE 1,000 ML 1000 ML IV (09:50)
[2024-06-26 10:06] LABS: Bilirubin Urine NEGATIVE (NEGATIVE); Blood Urine NEGATIVE (NEGATIVE); Clarity Urine CLEAR (CLEAR); Color Urine LT. YELLOW (YELLOW); Glucose Urine UA >=1000 mg/dL (NEGATIVE); Ketones Urine NEGATIVE (NEGATIVE); Leukocyte Esterase Urine NEGATIVE (NEGATIVE); Nitrite Urine NEGATIVE (NEGATIVE); Protein Urine NEGATIVE (NEG/TRACE); Specific Gravity Urine 1.015 (1.005-1.025); Urobilinogen Urine 0.2 EU/dL (0.2-1.0); pH Urine 5.5 (5.0-9.0)
[2024-06-26 10:07] LABS: Urine Microscopic Indicated NO
[2024-06-26] MEDS: INSULIN REGULAR, HUMAN (100 UNIT/ML) 10 ML MDV 8 UNIT IV (10:44)
[2024-06-26 10:45] LABS: Glucometer 334 mg/dL (74-106)
[2024-06-26 11:40] LABS: Glucometer 302 mg/dL (74-106)
== END 2024-06-26 11:59 | disposition home or self-care (01) ==
PROVIDERS: Emergency Provider Emergency Medicine
DX: R06.02 Shortness of breath (principal); E11.65 Type 2 diabetes mellitus with hyperglycemia; T38.3X6A Underdosing of insulin and oral hypoglycemic [antidiabetic] drugs, initial encounter; Z91.148 Patient's other noncompliance with medication regimen for other reason; Z87.891 Personal history of nicotine dependence
CPT/HCPCS: 36415; 71045; 80053; 81003; 82948; 84484; 85025; 93005; 99285; J1817

== ENCOUNTER 2024-10-23 23:23 | Emergency (ER) | payer MEDICARE, SELFPAY ==
[2024-10-23 23:32] VITALS: BP 128/82; PULSE 86; TEMP 36.8; O2SAT 100; BMI 41.5
--- OUTSIDE RECORDS SUMMARY | 2024-10-24 00:01 | XMS_ITS | CCD ---
Author Organization [facility] Care Team Providers Care Subscription Clerk Name Role Phone PIERRE, KUL B Unavailable Unavailable PIERRE, KUL B Unavailable Unavailable PROVIDER, UNKNOWN Attending Unavailable PROVIDER, UNKNOWN Admitting Unavailable FAWWAD, STONE Primary Care Physician [phone] Terri Brito Unavailable Unavailable ERICKSON Lopez, DR [...] LISA, DR JUNITO Galvan Consulting Unavailabl e SHANE NATH Admitting Unavailable SHANE NATH Attending Unavailable FASHAIKH BARBOZA H Primary Care Unavailable SHANE NATH Consulting Unavailable FAWHIENDSHAIKH Attending Unavailable FAWSHAIK ZUÑIGAH Attending Unavailable LÓPEZ, MS. ASHANTI ELIZABETH Primary Care P christiane Go FERY, Horace Primary Care Provider Maribel BMET, Ashanti Unavailable [phone] AMITA FERNANDEZ Attending Unavailable FAWZARA, Primary Care Unavailable AMITA FERNANDEZ Attending Unavailable LÓPEZ, ASHANTI Primary Care Unavailabl e AMITA FERNANDEZ Attending Unavailable LÓPEZ, ASHANTI Primary Care Unavailabl estefani Stiles MD, Horace Primary Care Provider [phone] ASHANTI LÓPEZ Attending Unavailabl e LEVI, Attending Unavailable FAWZARA, Attending Unavailable ANTHONY SANTANA Attending Unavailable ANTHONY SANTANA Referring Unavailable FASHAIKH BARBOZA Attending Unavailable LEVI, Attending Unavailable ASHANTI LÓPEZ Attending Unavailabl e LÓPEZASHANTI TORRES Attending Unavailabl e ANTOHNY SANTANA Attending Unavailable MARIBEL, ASHANTI Attending Unavailabl ANTHONY Berrios Attending Unavailable ZARIA LANE Attending Unavailable ASHANTI LÓPEZ Referring Unavailabl e Unavailable Primary Care Provider Unavailabl Kota De Souza Attending Unavailab Kota Cox Admitting Unavailab Bam Chin Primary Care Unavailable Allergies Allergy Classification Reported Allergen(s) Allergy Type Date of Onset Reaction(s) Facility (20 sources) metFORMIN; Translations: [metformin] Drug Allergy 3 Unknown (qualifier value), GI intolerance [facility] (20 sources) Amitriptyline Drug Allergy 3 Palpitations [facility] (1 source) Shellfish Drug allergy (disorder) 7 [facility] Repository Medications Current Medications Medication Drug Class(es) Dates Sig (Normalized) Sig (Original) albuterol 0.83 mg/ml inhalation solution (20 sources) beta2-Adrenergic Agonist albuterol (2.5 MG/3M L) 0.083% nebulizer solution Take by nebulization every 4 (four) hours if needed for wheezing or shortness of breath Active End: 08-19-2024 take 2 puff(s) by inhalation every four hours for wheezing albuterol HFA 90 mcg/act inhaler Inhale 2 puffs every 4 (four) hours if needed for wheezing 08/19/2024 Discontinued albuterol CFC free 90 mcg/inh Inh Aer w/Adapt 8 gm (Ventolin) (5 sources) Start: 10-16-2011 take 2 puff(s) by inhalation four times daily albuterol CFC free 90 mcg/inh Inh Aer w/Adapt 8 gm (Ventolin) 2 puff(s), Inhalation, QID, Refill(s) 0 Start Date: 10/16/11 Status: Ordered Start: 10-16-2011 take 2 puff(s) by in halation four times daily albuterol CFC free 90 mcg/inh Inh Aer w/Adapt 8 gm (Ventolin) 2 puff(s), Inhalation, QID, Refill(s) 0, 0, Print Requisition Start Date: 10/16/11 Status: Ordered cariprazine 3 mg oral capsule (2 sources) Atypical Antipsychotic Start: 04-03-2024 take 1 capsule by mouth once daily Vraylar 3 mg oral capsule 3 mg = 1 cap(s), Oral, Daily, Refills(s) 0 Start Date: 04/03/24 Status: Ordered chlorproMAZINE (2 sources) Phenothiazine Start: 09-23-2010 Thorazine 25 mg Tab 50mg tid, Refills(s) 0 Start Date: 09/23/10 Status: Ordered Continuous Glucose Mixer Tender (FreeStyle Tenzin 2 Switchback) device (1 source) Start: 07-28-2024 End: 07-28-2024 Continuous Glucose Mixer Tender (FreeStyle Tenzin 2 Switchback) device Indications: Type II diabetes mellitus with complication (CMS/HCC) 1 Device 1 (one) time for 1 dose 1 each 07/28/2024 07/28/2024 Active Continuous Glucose Sensor (FreeStyle Tenzin 2 Sensor) [facility] [place] (5 sources) Start: 07-28-2024 End: 10-26-2024 Continuous Glucose Sensor (FreeStyle Tenzin 2 Sensor) [facility] [place] Indications: Type II diabetes mellitus with complication (CMS/HCC) 1 Bar every 14 (fourteen) days 6 each 1 07/28/2024 10/26/2024 Active dapagliflozin 5 mg oral tablet (11 sources) Sodium-Glucose Cotransporter 2 Inhibitor Start: 07-02-2024 End: 07-02-2025 take 1 tablet by mouth once daily dapagliflozin (Farxiga) 5 MG Indications: Type 2 diabetes mellitus without complication, with long-term current use of insulin (CMS/HCC) Take 1 tablet (5 mg) by mouth Daily 30 tablet 11 07/02/2024 08/19/2024 Discontinued 24 hr dilTIAZem hydrochloride 120 mg extended [...] Start Date: 08/22/11 Status: Ordered glipiZIDE er 10 mg 24 hr extended release oral tablet (20 sources) Sulfonylurea Start: 07-28-2024 End: 01-24-2025 take 1 tablet by mouth every twenty-four hours in the morning glipiZIDE XL (Glucotrol XL) 10 MG 24 hr tablet Indications: Type II diabetes mellitus with complication (CMS/HCC) Take 1 tablet (10 mg) by mouth in the morning and 1 tablet (10 mg) before bedtime. Do not crush, chew, or split.. 180 tablet 1 07/28/2024 01/24/2025 Active Start: 04-08-2024 End: 07-02-2025 take 1 tablet by mouth in the morning glipiZIDE (Glucotrol) 5 MG tablet Indications: Type II diabetes mellitus with complication (CMS/HCC) Take 1 tablet (5 mg) by mouth in the morning and 1 tablet (5 mg) in the evening. Take before meals. 60 tablet 2 07/02/2024 07/28/2024 Discontinued (Dose adjustment) Start: 11-15-2021 take 1 tablet by laura th once daily glipiZIDE 5 mg ER Tab 5 mg = 1 tab(s), Oral, Daily Start Date: 11/15/21 Status: Ordered haloperidol 5 mg oral tablet (2 sources) Typical Antipsychotic Start: 04-11-2021 take 1 tablet by mouth twice daily haloperidol 5 mg Tab 5 mg = 1 tab(s), Oral, BID, # 60 tab(s), Refills(s) 0, Pharmacy: [facility] Start Date: 04/11/21 Status: Ordered hydrocortisone acetate 25 mg rectal suppository (5 sources) Corticosteroid Start: 04-08-2024 End: 04-18-2024 hydrocortisone (Anusol-HC) 25 MG suppository Indications: Anal pruritus Insert 1 suppository (25 mg) into the rectum in the morning and 1 suppository (25 mg) before bedtime. Do all this for 10 days. 12 suppository 04/08/2024 04/18/2024 Active 3 ml insulin glargine 100 unt/ml pen injector (20 sources) Insulin Analog Start: 07-28-2024 End: 10-26-2024 insulin glargine (Lantus SoloStar) 100 UNIT/ML pen Indications: Type II diabetes mellitus with complication (CMS/HCC) Inject 40 Units under the skin at bedtime 36 mL 07/28/2024 10/26/2024 Active Start: 07-02-2024 End: 07-03-2025 insulin glargine (Lantus Lucy oStar) 100 UNIT/ML pen Indications: Type II diabetes mellitus with complication (CMS/HCC) Inject 30 Units under the skin at bedtime 9 mL 11 07/03/2024 07/28/2024 Discontinued (Reorder) Start: 06-05-2024 End: 06-05-2025 insulin glargine (Lantus Lucy oStar) 100 UNIT/ML pen Indications: Type II diabetes mellitus with complication (CMS/HCC) Inject 25 Units under the skin at bedtime 7.5 mL 11 06/05/2024 07/02/2024 Discontinued (Dose adjustment) Start: 04-29-2024 Lantus Solosta r Pen 100 units/mL subcutaneous solution 15 unit(s), SubCutaneous, Once a day (at bedtime) Start Date: 04/29/24 Status: Ordered Start: 04-23-2024 End: 04-23-2025 insulin glargine (Lantus Lucy oStar) 100 UNIT/ML pen Indications: Type II diabetes mellitus with complication (CMS/HCC) Inject 20 Units under the skin at bedtime 3 mL 5 04/23/2024 06/05/2024 Discontinued (Dose adjustment) Start: 04-16-2024 End: 04-16-2025 insulin glargine (Lantus Lucy oStar) 100 UNIT/ML pen Indications: Type II diabetes mellitus with complication (CMS/HCC) Inject 15 Units under the skin at bedtime 3 mL 5 04/16/2024 04/23/2024 Discontinued (Dose adjustment) Start: 11-15-2021 Lantus insulin See Instructions Start Date: 11/15/21 Status: Ordered isopropyl alcohol 0.7 ml/ml medicated pad (20 sources) Alcohol Swabs (Alcohol Pads) 70 % pads 1 Pad every 12 (twelve) hours Active levoFLOXacin 500 mg oral tablet (1 source) Quinolone Antimicrobial Start: 04-03-20 End: 04-17-20 take 1 tablet by mouth every twenty-four hours Levaquin 500 mg Tab 500 mg = 1 tab(s), Oral, q24hr, X 14 day(s), # 14 tab(s), Refills(s) 0, Pharmacy: [facility]/pharmacy #[id number], 170, cm, 04/03/24 10:50:00 EDT, Height/Length Dosing, 120, kg, 04/03/24 10:50:00 EDT, Weight Dosing Start Date: 04/03/24 Stop Date: 04/17/24 Status: Ordered LORazepam 0.5 mg oral tablet (2 sources) Benzodiazepine Start: 09-24-19 take 1 tablet by mouth three times daily as needed for anxiety Ativan 0.5 mg oral tablet = 1 tab(s), Oral, TID, PRN PRN for anxiety, tab(s), Refills(s) 0 Start Date: 09/23/10 Status: Ordered ofloxacin 3 mg/ml otic solution (2 sources) Quinolone Antimicrobial Start: 04-08-20 End: 04-15-20 ofloxacin (Floxin) 0.3 % otic solution Indications: Acute swimmer's ear of both sides Administer 10 drops into affected ear(s) Daily for 7 days 5 mL 04/08/2024 04/15/2024 Active OLANZapine 10 mg oral tablet (20 sources) Atypical Antipsychotic Start: 04-03-20 End: 07-02-20 olanzapine 10 mg Tab See Instructions, Refills(s) 0 Start Date: 04/03/24 Status: Ordered Start: 11-15-2022 olanzapine 20 mg oral tablet [...] Refills(s) 0 Start Date: 12/08/11 Status: Ordered pioglitazone 45 mg oral tablet (16 sources) Peroxisome Proliferator Receptor alpha Agonist, Peroxisome Proliferator Receptor gamma Agonist, Thiazolidinedione Start: 07-28-2024 End: 07-28-2025 take 1 tablet by mouth once daily pioglitazone (Actos) 45 MG tablet Indications: Type II diabetes mellitus with complication (CMS/HCC) Take 1 tablet (45 mg) by mouth Daily 90 tablet 3 07/28/2024 07/28/2025 Active Start: 05-29-2024 End: 05-29-2025 take 1 tablet by mouth once daily pioglitazone (Actos) 15 MG tablet Indications: Type II diabetes mellitus with complication (CMS/HCC) Take 1 tablet (15 mg) by mouth Daily 30 tablet 11 05/29/2024 07/28/2024 Discontinued (Dose adjustment) QUEtiapine 100 mg oral tablet (2 sources) Atypical Antipsychotic Start: 11-15-2021 take 1 tablet by mouth once daily SEROquel 100 mg Tab 100 mg = 1 tab(s), Oral, Daily Start Date: 11/15/21 Status: Ordered Semaglutide,0.25 or 0.5MG/DOS, (Ozempic, 0.25 or 0.5 MG/DOSE,) 2 MG/3ML solution pen-injector (5 sources) Start: 07-28-2024 End: 10-26-2024 Semaglutide,0.25 or 0.5MG/DOS, (Ozempic, 0.25 or 0.5 MG/DOSE,) 2 MG/3ML solution pen-injector Indications: Type II diabetes mellitus with complication ([facility]) Inject 0.5 mg under the skin every 7 (seven) days 6 mL 1 07/28/2024 10/26/2024 Active tadalafil 20 mg oral tablet (1 source) Phosphodiesterase 5 Inhibitor Start: 11-15-2021 take 1 tablet by mouth once daily Cialis 20 mg Tab 20 mg = 1 tab(s), Oral, Daily, As directed for erectile dysfunction., # 30 tab(s), Refills(s) 3, Pharmacy: [facility], 170, cm, 11/15/21 9:38:00 EDT, Height/Length Dosing, 116.6, kg, 11/15/21 9:38:00 EDT, Weight Dosing Start Date: 11/15/21 Status: Ordered 60 actuat testosterone 20.25 mg/actuat topical gel (2 sources) Androgen Start: 08-23-2021 AndroGel Pump 20.25 mg/1.25 g (1.62%) transdermal gel = 2 pump, Topical, qAM, # 75 gram, Refills(s) 1, Pharmacy: [facility], 170, cm, 07/05/21 10:18:00 [...] dysfunction, # 30 tab(s), Refills(s) 1, Pharmacy: [facility], 170, cm, 01/17/22 10:42:00 EDT, Height/Length Dosing, 116.6, kg, 01/17/22 10:42:00 EDT, Weight Dosing Start Date: 01/17/22 Status: Ordered Xanomeline-Trospiu m Chloride (Cobenfy) 50-20 MG capsule (12 sources) Xanomeline-Trosp i um Chloride (Cobenfy) 50-20 MG capsule Take by mouth Active Completed/Discontinued Medications Medication Drug Class(es) Dates Sig (Normalized) Sig (Original) acetaminophen 325 mg / oxyCODONE hydrochloride 5 mg oral tablet (2 sources) Opioid Agonist Start: 12-08-2011 Percocet 325 mg-5 mg Tab 1 tab(s), Oral, q6hr PRN as needed for pain, 20 tab(s), Refill(s) 0, 0, Print Requisition Start Date: 12/08/11 Status: Ordered empagliflozin 10 mg oral tablet (4 sources) Sodium-Glucose Cotransporter 2 Inhibitor Start: 04-07-2024 End: 04-07-2025 take 1 tablet by mouth once daily empagliflozin (Jardiance) 10 MG Indications: Type II diabetes mellitus with complication ([facility]) Take 1 tablet (10 mg) by mouth Daily 30 tablet 04/07/2024 04/08/2024 Discontinued (Cost of medication) Ipratropium (3 sources) Anticholinergic Start: 08-22-2011 take [...] Episodic/Chronic Chronic obstructive pulmonary disease and bronchiectasis (20 sources) Chronic obstructive lung disease; Translations: [Chronic obstructive pulmonary disease, unspecified] Onset: 03-27-2022 10-16-2011 Chronic Diabetes mellitus with complications (20 sources) Type 2 diabetes mellitus; Translations: [Type 2 diabetes mellitus with unspecified complications] Onset: 04-07-2024 04-16-2024 Chronic Disorders of lipid metabolism (20 sources) Hyperlipidemia; Translations: [Hyperlipidemia, unspecified] Onset: 06-26-2023 06-26-2023 Chronic Genitourinary symptoms and ill-defined conditions (10 sources) Nocturia; Translations: [Nocturia] Onset: 11-15-2021 Episodic Mood disorders (6 sources) Depressive disorder; Translations: [Bipolar disorder, unspecified] Onset: 03-27-2022 09-26-2013 Chronic Mood disorders (2 sources) Major depressive disorder, single episode, unspecified; Translations: [Major depressive disorder, single episode, unspecified] Onset: 01-29-2017 Mycoses (3 sources) Pain in toe; Translations: [Tinea unguium] 04-17-2024 Episodic Nutritional deficiencies (1 source) Vitamin D deficiency; Translations: [Vitamin D deficiency, unspecified] 07-28-2024 Chronic Other aftercare (1 source) Long-term current use of insulin; Translations: [exterminator (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 of insulin] 07-28-2024 Episodic Other diseases of veins and lymphatics (3 sources) Vascular insufficiency; Translations: [Venous insufficiency (chronic) (peripheral)] 04-14-2024 Episodic Other ear and sense organ disorders (20 sources) Bilateral hearing loss; Translations: [Conductive hearing loss, unilateral, left ear with restricted hearing on the contralateral side] Onset: 09-10-2023 09-10-2023 Chronic Other ear and sense organ disorders (20 sources) Mixed conductive AND sensorineural hearing loss; Translations: [Mixed conductive and sensorineural hearing loss, unilateral, left ear with restricted hearing on the contralateral side] Onset: 09-10-2023 09-10-2023 Chronic Other ear and sense organ disorders (1 source) Acute otitis externa; Translations: [Swimmer's ear, bilateral] 04-08-2024 Episodic Other endocrine disorders (4 sources) Testicular hypofunction; Translations: [Testicular hypofunction] Onset: 11-15-2021 Chronic Other endocrine disorders (5 sources) Male hypogonadism 07-05-2021 Chronic Other gastrointestinal disorders (4 sources) Incontinence of feces; Translations: [Full incontinence of feces] Onset: 11-15-2022 Episodic Other inflammatory condition of skin (20 sources) Pruritus ani; Translations: [Pruritus ani] 03-06-2024 Episodic Other male genital disorders (10 sources) Secondary erectile dysfunction; Translations: [Erectile dysfunction [...] INDEX BMI 39.0-39.9 ADULT] Onset: 03-27-2022 Chronic Other nutritional; endocrine; and metabolic disorders (20 sources) Morbid obesity; Translations: [Morbid (severe) obesity due to excess calories] Onset: 06-26-2023 06-26-2023 Chronic Other nutritional; endocrine; and metabolic disorders (1 source) Severe obesity; Translations: [Class 3 severe obesity due to excess calories with serious comorbidity and body mass index (BMI) of 40.0 to 44.9 in adult (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] Onset: 01-29-2017 06-26-2023 Chronic Substance-related disorders (1 source) Nicotine dependence, cigarettes, uncomplicated; Translations: [NICOTINE DEPEND CIGARETTES UNCOMP] Onset: 03-27-2022 Chronic Past or Other Problems Problem Classification Problem Date Documented Da te Episodic/Chronic Diabetes mellitus without complication (20 sources) Type 2 diabetes mellitus without complications; Translations: [Type 2 diabetes mellitus without complication] Onset: 03-14-2022 Resolved: 04-07-2024 Chronic Fluid and electrolyte disorders (2 sources) Hypokalemia; Translations: [Other disorders of electrolyte and fluid balance, not elsewhere classified] Onset: 03-14-2022 Episodic Nonspecific chest pain (3 sources) Chest pain, unspecified; Translations: [CHEST PAIN UNSPECIFIED] Onset: 03-24-2022 Episodic Other aftercare (5 sources) Other correction (current) drug therapy; Translations: [OTH COMPUTER TECHNICAL SPECIALIST CURRENT DRUG THERAPY] Onset: 12-08-2021 Episodic Other aftercare (1 source) [facility]PC (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 of insulin; Translations: [NURSING HOME CURRENT USE OF INSULIN] Onset: 03-27-2022 Episodic Other ear and sense organ disorders (20 sources) Malignant otitis externa; Translations: [Malignant otitis externa, bilateral] Onset: 04-08-2024 Resolved: 04-08-2024 04-08-2024 Chronic Other ear and sense organ disorders (20 sources) Acute otitis externa of bilateral ears; Translations: [Unspecified acute noninfective otitis externa, bilateral] Onset: 04-08-2024 04-08-2024 Episodic Other gastrointestinal disorders (1 source) Constipation, unspecified; Translations: [CONSTIPATION UNSPECIFIED] Onset: 03-27-2022 Episodic Other nervous system disorders (3 sources) Fasciculation; Translations: [FASCICULATION] Onset: 03-11-2022 Episodic Other screening for suspected conditions (not mental disorders or infectious disease) (20 sources) Patient encounter status; Translations: [Encounter for screening for malignant neoplasm of colon] Onset: 06-26-2023 06-26-2023 Episodic Other skin disorders (20 sources) Axillary hidradenitis suppurativa; Translations: [Hidradenitis suppurativa] Onset: 11-29-2023 11-29-2023 Episodic Otitis media and related conditions (20 sources) Recurrent acute otitis media; Translations: [Otitis media, unspecified, unspecified ear] Onset: 09-10-2023 09-10-2023 Episodic Residual codes; unclassified (20 sources) Tobacco user; Translations: [Tobacco use] Onset: 10-08-2023 10-08-2023 Episodic Spondylosis; intervertebral disc disorders; other back problems (20 sources) Backache; Translations: [Thoracolumbar back pain] Onset: 11-29-2023 11-29-2023 Episodic Results Test Name Value Interpretation Reference Range Facility Glucose (Bld) [Mass/Vol]on 0 07-28-2024 Glucose Blood, POC 484 mg/dL [facility] No Panel Informationon 07-28 Interpretation and review of laboratory results Abnormal [facility] POCT glycosylated hemoglobin (Hb A1C) docked deviceon 07-28-2024 HbA1c (Bld) [Mass fraction] 11.5 % [facility] HbA1c (Bld) [Mass fraction]o n 07-02-2024 Interpretation and review of laboratory results Abnormal [facility] Laboratory - Hematology and Cell countson 07-02-2024 HbA1c (Bld) [Mass fraction] 12.6 % [facility] Urology Office/Clinic Noteon 05-02-2024 Urology Office/Clinic Note Urology Office/Clinic Note Chief Complaint Discuss ED treatment HPI Staff Pt is here to discuss ICI treatment. Dx: electric shock type pain, ED, urinary frequency and hypogonadism male. Dysuria: denies Incomplete bladder emptying: denies Hematuria: denies Frequency: once every hour Urgency: denies Nocturia: 5 x a night Stream: denies hesitancy, has a strong stream Leaking: denies Post void dripping: denies Wearing pads/ Depends: denies Urge incontinence: denies Stress incontinence: denies Incontinence without Sensory Awareness: denies Abdominal pain: denies Flank pain: denies Sexual complaints: _ Physical Exam Vitals & Measurements HR: 92(Peripheral) RR: 16 BP: 116/71 HT: 67 in HT: 170 cm WT: 120 kg WT: 264 lb BMI: 41.52 Assessment/Plan 1. ED (erectile dysfunction) (N52.1: Erectile dysfunction due to diseases classified elsewhere) Pt was just seen <1 month ago. He is back today because he has decided he would like to proceed w ICI. Previously failed Cialis and Viagra. Levitra was cost-prohibitive. Trimix discussed including risks involved, which include bleeding, formation of hard nodules (scar) at the injection site, and the risk of priapism, which is an erection which will not dissipate. He understands that, if there is an erection which lasts for over four hours he should either contact the office immediately or go to the Emergency Room. He is aware that this priapism is dangerous and can result in severe pain and subsequent inability to obtain an erection at all in the future. Order sent to [facility]. 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 This needs to be w male MD Ordered: Complex E&M Add on [id number] E&M of Est. Patient Moderate 30-39 Min [id number] Follow-up With When Contact Information Schedule with male MD for ICI teaching once pt picks up medication from [facility] Additional Instructions: Patient Education Erectile Dysfunction Problem List/Past Medical History Ongoing COPD ED (erectile dysfunction) Electric shock-type pain Fecal incontinence Hypogonadism male Nocturia Urinary frequency Historical Depression Procedure/Surgical History None. Medications albuterol CFC free 90 mcg/inh Inh Aer w/Adapt 8 gm (Ventolin), 2 puff(s), Inhalation, QID glipiZIDE 5 mg Tab, 5 mg= 1 tab(s), Oral, BID Lantus Solostar Pen 100 units/mL subcutaneous solution, 15 unit(s), SubCutaneous, Once a day (at bedtime) olanzapine 10 mg Tab, See Instructions Vraylar 3 mg oral capsule, 3 mg= 1 cap(s), Oral, Daily Allergies metFORMIN (Unknown) Social History Alcohol - Denies Alcohol Use, 08/19/2011 Substance Abuse - Denies Substance Abuse, 08/19/2011 Tobacco - High Risk, 08/19/2011 10 or more cigarettes (1/2 pack or more)/day in last 30 days Tobacco Use:. Never Smokeless Tobacco Use:. Cigarettes, Ready to change: No. Yes, 04/29/2024 Family History Depression: Mother. Diabetes: Father. Hypertension: Mother and Father. Immunizations Vaccine Date Status Comments SARS-CoV-2 (COVID-19) mRNA BNT-162b2 vax 01/01/2021 Recorded 2022-11-15: TPV40 SARS-CoV-2 (COVID-19) mRNA BNT-162b2 vax 12/11/2020 Recorded 2022-11-15: TPV40 Normal [facility] Comment on above: Result Comment: Elec tronically Signed By: AMITA FERNANDEZ PA-C\.br\Date and Time Signed: 05/02/24 14:57 EDT Ambulatory Visit Summaryon 1 Ambulatory Visit Summary Ambulatory Visit Summary JOHNNY VERMA :1970 Visit Date:04/29/2024 Ambulatory Visit Instructions Your Diagnosis ED (erectile dysfunction) Hypogonadism male Your Care Team Attending Physician - AMITA FERNANDEZ PA-C Primary Care Physician - MS. ASHANTI LÓPEZ This Is Your Medications List albuterol (albuterol CFC free 90 mcg/inh Inh Aer w/Adapt 8 gm (Ventolin)) cariprazine (Vraylar 3 mg oral capsule) glipiZIDE (glipiZIDE 5 mg Tab) insulin glargine (Lantus Solostar Pen 100 units/mL subcutaneous solution) olanzapine (olanzapine 10 mg Tab) Procedures Performed None. Discharge Vitals Heart Rate (Peripheral) 92 Respiratory Rate 16 Blood Pressure 116/71 Height 170 cm Height 67 in Weight 120 kg Weight 264 lb BMI 41.52 Medications What How Much When Instructions Unchanged albuterol (albuterol CFC free 90 mcg/ inh Inh Aer w/ Adapt 8 gm (Ventolin)) 2 Puffs Inhalation 4 times a day Unchanged cariprazine (Vraylar 3 mg oral capsule) 1 Capsules By Mouth Every day Unchanged glipiZIDE (glipiZIDE 5 mg Tab) 1 Tablets By Mouth 2 times a day TAKE 1 TABLET BY MOUTH IN THE MORNING AND 1 TABLET IN THE EVENING. TAKE BEFORE MEALS. Unchanged insulin glargine (Lantus Solostar Pen 100 units/ mL subcutaneous solution) 15 Units Subcutaneous Once a day (at bedtime) Unchanged olanzapine (olanzapine 10 mg Tab) See instructions Allergies metFORMIN (Unknown) Problems Ongoing - Any problem that you are currently receiving treatment for. COPD ED (erectile dysfunction) Electric shock-type pain Fecal incontinence Hypogonadism male Nocturia Urinary frequency Historical - Any problem that you are no longer receiving treatment for. Depression Patient Survey You may receive a survey via text or e-mail asking about your office visit. Please share your experience with us by completing your survey. We appreciate your feedback and thank you for choosing us for your care. Normal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 9.5-13.5 [facility] Comment on above: Performed By: #### G ELGIN, LIPID #### [facility] [address] [address] [address] Kenna Thomas PLT 230 103/ul Normal 150-450 [facility] Comment on above: Performed By: #### G ELGIN, LIPID #### [facility] [address] [address] [address] Kenna Thomas RBC 4.44 106/ul Critically low 4.70-6.[address] [facility] Comment on above: Performed By: #### G ELGIN, LIPID #### [facility] [address] [address] [address] Kenna Thomas WBC 11.2 103/ul Critically high 4.0-11.0 [facility] Comment on above: Performed By: #### G ELGIN, LIPID #### [facility] [address] [place] [address] Dr. Kenna Thomas LACTATE/LACTIC ACIDon 2021 Lactate [Moles/Vol] 2.0 mmol/L Critically high 0.4-1.9 [facility] Comment on above: Performed By: #### L ACT #### [facility] [address] [place] [address] Dr. Kenna Thomas MAGNESIUMon 03-11-2022 Magnesium [Mass/Vol] 1.7 mg/dL Critically low 1.8-2.4 [facility] Comment on above: Performed By: #### G ELGIN, LIPID #### [facility] [address] [place] [address] Dr. Kenna Thomas PROF 14(COMP METB)on 022 Albumin [Mass/Vol] 3.3 g/dL Critically low 3.4-5.0 [facility] Comment on above: Performed By: #### G ELGIN, LIPID #### [facility] [address] [place] [address] Dr. Kenna Thomas Albumin/Globulin [Mass ratio] 0.8 {ratio} Normal [facility] Comment on above: Performed By: #### G ELGIN, LIPID #### [facility] [address] [place] [address] Dr. Kenna Thomas ALP [Catalytic activity/Vol] 156 U/L Critically high 46-116 [facility] Comment on above: Performed By: #### G ELGIN, LIPID #### [facility] [address] [place] [address] Dr. Kenna Thomas ALT [Catalytic activity/Vol] 28 U/L Normal 16-63 [facility] Comment on above: Performed By: #### G ELGIN, LIPID #### [facility] [address] [place] [address] Dr. Kenna Thomas Anion gap [Moles/Vol] 15.0 mmol/L Normal [facility] Comment on above: Performed By: #### G ELGIN, LIPID #### [facility] [address] [place] [address] Dr. Kenna Thomas AST [Catalytic activity/Vol] 20 U/L Normal 15-37 [facility] Comment on above: Performed By: #### G ELGIN, LIPID #### [facility] [address] [place] [address] Dr. Kenna Thomas Bilirubin [Mass/Vol] 0.5 mg/dL Normal 0.2-1.0 [facility] Comment on above: Performed By: #### G ELGIN, LIPID #### [facility] [address] [place] [address] Dr. Kenna Thomas Calcium [Mass/Vol] 9.0 mg/dL Normal 8.5-10.1 [facility] Comment on above: Performed By: #### G ELGIN, LIPID #### [facility] [address] [place] [address] Dr. Kenna Thomas Chloride [Moles/Vol] 100 mmol/L Normal 98-107 [facility] Comment on above: Performed By: #### G ELGIN, LIPID #### [facility] [address] [place] [address] Dr. Kenna Thomas CO2 [Moles/Vol] 25.6 mmol/L Normal 21.0-32.0 [facility] Comment on above: Performed By: #### G ELGIN, LIPID #### [facility] [address] [place] [address] Dr. Kenna Thomas Creatinine [Mass/Vol] 0.83 mg/dL Normal 0.70-1.30 [facility] Comment on above: Performed By: #### G ELGIN, LIPID #### [facility] [address] [place] [address] Dr. Kenna Thomas EGFR-AF SURINAMESE >60 Normal >=60 [facility] Comment on above: Performed By: #### G ELGIN, LIPID #### [facility] [address] [place] [address] Dr. Kenna Thomas EGFR-NON AF SURINAMESE >60 Normal >=60 [facility] Comment on above: Performed By: #### G ELGIN, LIPID #### [facility] [address] [place] [address] Dr. Kenna Thomas Globulin (S) [Mass/Vol] 4.0 g/dL Normal [facility] Comment on above: Performed By: #### G ELGIN, LIPID #### [facility] [address] [address] [address] Kenna Thomas Glucose [Mass/Vol] 170 mg/dL Critically high 74-106 T [facility] Comment on above: Performed By: #### G ELGIN, LIPID #### [facility] [address] [address] [address] Kenna Thomas Potassium [Moles/Vol] 3.6 mmol/L Normal 3.5-5.1 [facility] Comment on above: Performed By: #### G ELGIN, LIPID #### [facility] [address] [address] [address] Kenna Thomas Protein [Mass/Vol] 7.3 g/dL Normal 6.4-8.2 [facility] Comment on above: Performed By: #### G ELGIN, LIPID #### [facility] [address] [place] [address] Dr. Kenna Thomas Sodium [Moles/Vol] 137 mmol/L Normal 136-145 [facility] Comment on above: Performed By: #### G ELGIN, LIPID #### [facility] [address] [place] [address] Dr. Kenna Thomas Urea nitrogen [Mass/Vol] 10.0 mg/dL Normal 7.0-18.0 [facility] Comment on above: Performed By: #### G ELGIN, LIPID #### [facility] [address] [place] [address] Dr. Kenna Thomas Urea nitrogen/Creatinine [Mass ratio] 12.0 mg/mg Normal [facility] Comment on above: Performed By: #### G ELGIN, LIPID #### [facility] [address] [place] [address] Dr. Kenna Thomas GLYCOHEMOGLOBIN A1Con 2021 ADA RECOMMENDATION SEE BELOW Normal [facility] Comment on above: Result Comment: ADA RECOMMENDED LIMIT 4.0 - 6.0 ADA THERAPEUTIC TARGET < 7.0 ACTION SUGGESTED > 7.0 Performed By: #### G ELGIN, LIPID #### [facility] [address] [address] [address] Kenna Thomas Glucose [Mass/Vol] 154 mg/dL Normal [facility] Comment on above: Performed By: #### G ELGIN, LIPID #### [facility] [address] [address] [address] Kenna Thomas HbA1c (Bld) [Mass fraction] 7.0 % Critically high 4.5-6.2 [facility] Comment on above: Performed By: #### G ELGIN, LIPID #### [facility] [address] [address] [address] Kenna Thomas LIPID PROFILEon 01-09-2022 CHOL-HDL RATIO NORM SEE BELOW Normal [facility] Comment on above: Result Comment: 3.3 - 4.4 LOW RISK 4.4 - 7.1 AVERAGE RISK 7.1 - 11.0 MODERATE RISK >11.0 HIGH RISK Performed By: #### L IPID #### [facility] [address] [place] [address] Dr. Kenna Thomas Cholesterol [Mass/Vol] 186 mg/dL Normal <=200 [facility] Comment on above: Performed By: #### L IPID #### [facility] [address] [place] [address] Dr. Kenna Thomas Cholesterol in HDL [Mass/Vol] 31 mg/dL Critically low 40-60 [facility] Comment on above: Performed By: #### L IPID #### [facility] [address] [address] [address] Kenna Thomas Cholesterol in LDL [Mass/Vol] 91.2 mg/dL Normal [facility] Comment on above: Performed By: #### L IPID #### [facility] [address] [address] [address] Kenna Thomas Cholesterol.total/Cho lesterol in HDL [Mass ratio] 6.0 {ratio} Normal [facility] Comment on above: Performed By: #### L IPID #### [facility] [address] [address] [address] Kenna Thomas HDL NORMAL > or = 60 mg/dl - LO W CARDIOVASCULAR RISK <40 mg/dl - HIGH CARDIOVASCULAR RISK Normal [facility] Comment on above: Performed By: #### L IPID #### [facility] [address] [address] [address] Kenna Thomas LDL CALC NORMAL SEE BELOW Normal [facility] Comment on above: Result Comment: <100 mg/dl OPTIMAL 100 - 129 mg/dl NEAR OR ABOVE OPTIMAL 130 - 159 mg/dl BORDERLINE HIGH 160 - 189 mg/dl HIGH >190 mg/dl VERY HIGH Performed By: #### L IPID #### [facility] [address] [address] [address] Kenna Thomas Triglyceride [Mass/Vol] 319 mg/dL Critically high <=150 [facility] Comment on above: Performed By: #### L IPID #### [facility] [address] [address] [address] Kenna Thomas VLDL CALC 63.8 mg/dL Normal [facility] Comment on above: Performed By: #### L IPID #### [facility] [address] [address] [address] Kenna Thomas TESTOSTERONE, TOTALon 2021 Testosterone [Mass/Vol] 447 ng/dL Normal 264-916 [facility] Comment on above: Result Comment: Adul t male reference interval is based on a population of healthy nonobese males (BMI <30) between 19 and 39 years old. brady Camacho.al. JCEM 2017,102;4859-1154. PMID: [id number]. Performed By: #### T ESTTOT #### [facility] [address] [address] [address] Kenna Thomas GLUCOSE BLOODon 12-08-2021 Glucose [Mass/Vol] 147 mg/dL Critically high 74-106 T [facility] Comment on above: Performed By: #### G ELGIN, LIPID #### [facility] [address] [address] [address] Kenna Thomas LIPID PROFILEon 12-08-2021 CHOL-HDL RATIO NORM SEE BELOW Normal [facility] Comment on above: Result Comment: 3.3 - 4.4 LOW RISK 4.4 - 7.1 AVERAGE RISK 7.1 - 11.0 MODERATE RISK >11.0 HIGH RISK Performed By: #### G ELGIN, LIPID #### [facility] [address] [address] [address] Kenna Thomas Cholesterol [Mass/Vol] 140 mg/dL Normal <=200 [facility] Comment on above: Performed By: #### G ELGIN, LIPID #### [facility] [address] [address] [address] Kenna Thomas Cholesterol in HDL [Mass/Vol] 33 mg/dL Critically low 40-60 [facility] Comment on above: Performed By: #### G ELGIN, LIPID #### [facility] [address] [address] [address] Kenna Thomas Cholesterol in LDL [Mass/Vol] 55.4 mg/dL Normal [facility] Comment on above: Performed By: #### G ELGIN, LIPID #### [facility] [address] [address] [address] Kenna Thomas Cholesterol.total/Cho lesterol in HDL [Mass ratio] 4.2 {ratio} Normal [facility] Comment on above: Performed By: #### G ELGIN, LIPID #### [facility] [address] [address] [address] Kenna Thomas HDL NORMAL > or = 60 mg/dl - LO W CARDIOVASCULAR RISK <40 mg/dl - HIGH CARDIOVASCULAR RISK Normal [facility] Comment on above: Performed By: #### G ELGIN, LIPID #### [facility] [address] [address] [address] Kenna Thomas LDL CALC NORMAL SEE BELOW Normal [facility] Comment on above: Result Comment: <100 mg/dl OPTIMAL 100 - 129 mg/dl NEAR OR ABOVE OPTIMAL 130 - 159 mg/dl BORDERLINE HIGH 160 - 189 mg/dl HIGH >190 mg/dl VERY HIGH Performed By: #### G ELGIN, LIPID #### [facility] [address] [address] [address] Kenna Thomas Triglyceride [Mass/Vol] 258 mg/dL Critically high <=150 [facility] Comment on above: Performed By: #### G ELGIN, LIPID #### [facility] [address] [address] [address] Kenna Thomas VLDL CALC 51.6 mg/dL Normal [facility] Comment on above: Performed By: #### G ELGIN, LIPID #### [facility] [id number] Kenna Thomas Comp Metabolic Profon 2016 (cont.) Normal [facility] Comment on above: Result Comment: Aver age GFR for 40-49 years old: 99 mL/min/1.73sq mChronic Kidney Disease: <60 mL/min/1.73sq mKidney failure: <15 mL/min/1.73sq meGFR calculated using average adult body mass. Additional eGFR calculator available at:http://www.Super[employer]/multiple_crcl_2011.htmPerformed at [address] [address] Performed By: #### C P ####[address] [address] Alanine aminotransferase (ALT) 27 U/L Normal 5-41 [facility] Comment on above: Performed By: #### C P ####[address] [address] Albumin 3.7 g/dL Normal 3.5-5.2 [facility] Comment on above: Performed By: #### C P ####[address] [address] Albumin/Globulin Ratio 1.1 {ratio} Normal 1.0-2.5 [facility] Comment on above: Performed By: #### C P ####[address] [address] Alkaline Phos 125 U/L Normal 40-129 [facility] Comment on above: Performed By: #### C P ####[address] [address] Anion gap 14 mmol/L Normal 9-17 [facility] Comment on above: Performed By: #### C P ####[id number] [place] [address] Aspartate aminotransferase (AST) 20 U/L Normal <40 [facility] Comment on above: Performed By: #### C P ####[address] [place] [address] Bilirubin Ql (U) 0.28 mg/dL Low 0.3-1.2 [facility] Comment on above: Performed By: #### C P ####[address] [address] Calcium 9.0 mg/dL Normal 8.6-10.4 [facility] Comment on above: Performed By: #### C P ####[address] [address] Chloride 98 mmol/L Normal 98-107 [facility] Comment on above: Performed By: #### C P ####[address] [address] CO2 27 mmol/L Normal 20-31 [facility] Comment on above: Performed By: #### C P ####[address] [address] Creatinine 0.74 mg/dL Normal 0.70-1.20 [facility] Comment on above: Performed By: #### C P ####[address] [address] eGFR (non-black) mL/min/{1.73_m2} Normal >60 [facility] Comment on above: Performed By: #### C P ####[address] [address] Glucose mass conc 142 mg/dL High 70-99 [facility] Comment on above: Performed By: #### C P ####[address] [address] Potassium molar conc 4.2 mmol/L Normal 3.7-5.3 [facility] Comment on above: Performed By: #### C P ####[address] [address] Protein 7.0 g/dL Normal 6.4-8.3 [facility] Comment on above: Performed By: #### C P ####[address] [address] Sodium 139 mmol/L Normal 135-144 [facility] Comment on above: Performed By: #### C P ####[address] [address] Urea nitrogen 9 mg/dL Normal 6-20 [facility] Comment on above: Performed By: #### C P ####[address] [address] BUN/CRE Ratio NOT REPORTED Normal 9-20 [facility] Comment on above: Performed By: #### C P ####[address] [address] Staging: NOT REPORTED Normal [facility] Comment on above: Performed By: #### C P ####[address] [address] Drug Scr, Abuse, Uron 2016 Amphetamine(s),Ur Negative Normal NEG [facility] Comment on above: Result Comment: (Pos itive cutoff 1000 ng/mL) Performed By: #### KOMAL Hays DAU ####[facility] [place] [address] Barbiturate(s),Ur Negative Normal NEG [facility] Comment on above: Result Comment: (Pos itive cutoff 200 ng/mL) Performed By: #### U AKOMAL YAZMIN ####[address] [address] Base excess Negative Normal NEG [facility] Comment on above: Result Comment: (Pos itive cutoff 300 ng/mL) Performed By: #### U A UMICAO, YAZMIN ####[address] [address] Benzodiazepine(s) Negative Normal NEG [facility] Comment on above: Result Comment: (Pos itive cutoff 200 ng/mL) Performed By: #### U AKOMAL YAZMIN ####[address] [address] Cannabinoid(s),Ur Negative Normal NEG [facility] Comment on above: Result Comment: (Pos itive cutoff 50 ng/mL) Performed By: #### U AKOMAL YAZMIN ####[address] [address] Interpretive Info Assay provides medical screening only. The absence of expected drug(s) and/or Normal [facility] Comment on above: Result Comment: meta bolite(s) may indicate diluted or adulterated urine, limitations of testing or timing of collection.Testing for legal purposes should be confirmed by another method. To request confirmation of test result, please call the lab within 7 days of sample submission.Performed at [address] [address] Performed By: #### U A UMJAZZ YAZMIN ####[address] [address] Opiate(s), Ur Negative Normal NEG [facility] Comment on above: Result Comment: (Pos itive cutoff 300 ng/mL) Performed By: #### U A UMMARIONO YAZMIN ####[address] [address] Oxycodone, Urine Negative Normal NEG [facility] Comment on above: Result Comment: (Pos itive cutoff 100 ng/mL) Performed By: #### U A, PRAVEENO, YAZMIN ####[facility] [place] [address] Phencyclidine, Ur Negative Normal NEG [facility] Comment on above: Result Comment: (Pos itive cutoff 25 ng/mL) Performed By: #### U A, UMICAO, YAZMIN ####[facility] [place] [address] Urine, methadone presence Negative Normal NEG [facility] Comment on above: Result Comment: (Pos itive cutoff 300 ng/mL) Performed By: #### U A, UMJAZZ, YAZMIN ####[address] [address] Buprenorphrine, Ur NOT REPORTED Normal NEG [facility] Comment on above: Performed By: #### U AKOMAL, YAZMIN ####[address] [address] MDMA, Urine NOT REPORTED Normal NEG [facility] Comment on above: Performed By: #### U A, UMICAO, YAZMIN ####[address] [address] Methamphetamine, Ur NOT REPORTED Normal NEG [facility] Comment on above: Performed By: #### U A, UMICAO, YAZMIN ####[address] [address] Propoxyphene,Urine NOT REPORTED Normal NEG [facility] Comment on above: Performed By: #### U A, UMICAO, YAZMIN ####[facility] [place] [address] Urine, tricyclic antidepressants NOT REPORTED Normal NEG [facility] Comment on above: Performed By: #### KOMAL Hays YAZMIN ####[address] [place] [address] Urinalysis, Routineon 2016 Acetaminophen mass conc Negative Normal NEG [facility] Comment on above: Performed By: #### KOMAL Hays, YAZMIN ####[address] [place] [address] Bilirubin (direct) Negative Normal NEG [facility] Comment on above: Performed By: #### KOMAL Hays, YAZMIN ####[address] [place] [address] Hemoglobin mass conc (Bld) TRACE Abnormal NEG [facility] Comment on above: Performed By: #### KOMAL Hays, YAZMIN ####[address] [place] [address] Nitrite,Ur Negative Normal NEG [facility] Comment on above: Performed By: #### KOMAL Hays, YAZMIN ####[address] [place] [address] Turbidity CLEAR Normal CLEAR [facility] Comment on above: Performed By: #### KOMAL Hays, YAZMIN ####[address] [place] [address] Urine, color YELLOW Normal YEL [facility] Comment on above: Performed By: #### U KOMAL Pride, YAZMIN ####[address] [place] [address] Urine, glucose presence Negative Normal NEG [facility] Comment on above: Performed By: #### U AKOMAL, YAZMIN ####[facility] [facility] [place] [address] Urine, leukocyte esterase presence Negative Normal NEG [facility] Comment on above: Result Comment: Perf ormed at [facility] [address] [place] [address] Performed By: #### KOMAL Hays YAZMIN ####[address] [place] [address] Urine, pH 6.0 [pH] Normal 5.0-8.0 [facility] Comment on above: Performed By: #### KOMAL Hays YAZMIN ####[address] [place] [address] Urine, protein presence Negative Normal NEG [facility] Comment on above: Performed By: #### KOMAL Hays YAZMIN ####[address] [place] [address] Urine, specific gravity 1.007 Normal 1.000-1.030 [facility] Comment on above: Performed By: #### KOMAL Hays YAZMIN ####[address] [place] [address] Urobilinogen,Ur Normal Normal NORM [facility] Comment on above: Performed By: #### U KOMAL Pride YAZMIN ####[address] [place] [address] Comment NOT REPORTED Normal [facility] Comment on above: Performed By: #### KOMAL Hays YAZMIN ####[address] [place] [address] Urinalysis,Microon 7 ----- Normal [facility] Comment on above: Performed By: #### KOMAL Hays DAU ####[facility] [facility] [place] [address] Urine WBC's 0 TO 2 Normal [facility] Comment on above: Performed By: #### KOMAL Hays YAZMIN ####[facility] [facility] [place] [address] Urine, bacteria in sediment FEW Abnormal NONE [facility] Comment on above: Result Comment: Perf ormed at [facility] [address] [place] [address] Performed By: #### KOMAL Hays DAU ####[facility] [facility] [place] [address] Urine, epithelial cells in sediment 0 TO 2 Normal [facility] Comment on above: Performed By: #### KOMAL Hays DAU ####[facility] [place] [address].[place] [address] Urine, erythrocytes 2 TO 5 Normal [facility] Comment on above: Performed By: #### KOMAL Hays DAU ####[facility] [facility] [place] [address] Epithelial, Renal NOT REPORTED Normal 0 [facility] Comment on above: Performed By: #### KOMAL Hays DAU ####[facility] [place] [address].[place] [address] Mucus Strands NOT REPORTED Normal NONE [facility] Comment on above: Performed By: #### KOMAL Hays DAU ####[facility] [place] [address].[place] [address] Other Observations NOT REPORTED Normal NREQ [facility] Comment on above: Performed By: #### KOMAL Hays DAU ####[address] [address] Trichomonas NOT REPORTED Normal NONE [facility] Comment on above: Performed By: #### U A, KOMAL, YAZMIN ####[address] [address] Urine, amorphous sediment presence in sediment NOT REPORTED Normal NONE [facility] Comment on above: Performed By: #### U A, KOMAL, YAZMIN ####[address] [address] Urine, casts in sediment NOT REPORTED Normal [facility] Comment on above: Performed By: #### U AKOMAL, YAZMIN ####[address] [address] Urine, crystals in sediment NOT REPORTED Normal NONE [facility] Comment on above: Performed By: #### U AKOMAL, YAZMIN ####[address] [address] Urine, yeast presence in sediment NOT REPORTED Normal NONE [facility] Comment on above: Performed By: #### U AKOMAL, YAZMIN ####[address] [address] CBC with Diffon 01-30-2017 Abs. Basophil 0.10 k/uL Normal 0.0-0.2 [facility] Comment on above: Result Comment: Perf ormed at [address] [address] Performed By: #### C DP, CP ####[address] [address] Abs.Neutrophil (Seg) 5.40 k/uL Normal 1.3-9.1 [facility] Comment on above: Performed By: #### C DP, CP ####[facility] [place] [address] Basophils/100 WBC Auto (Bld) 1 % Normal [facility] Comment on above: Performed By: #### C DP, CP ####[facility] [place], [place] [address]e [facility] [place] [address] Eosinophils 0.40 10*3/uL Normal 0.0-0.4 [facility] Comment on above: Performed By: #### C DP, CP ####[address] [facility] [place] [address] Eosinophils/100 leukocytes 5 % Normal [facility] Comment on above: Performed By: #### C DP, CP ####[facility] [place], [place] [address] [facility] [place] [address] Erythrocyte distribution width Auto Ratio (RBC) 13.0 % Normal 11.5-14.9 [facility] Comment on above: Performed By: #### C DP, CP ####[address] [place] [address] Erythrocytes (RBC) 4.26 10*6/uL Low 4.5-5.9 [facility] Comment on above: Performed By: #### C DP, CP ####[facility] [place], [place] [address] [facility] [place] [address] Hematocrit (HCT) 42.3 % Normal 41-53 [facility] Comment on above: Performed By: #### C DP, CP ####[address] [place] [address] Hemoglobin mass conc (Bld) 14.5 g/dL Normal 13.5-17.5 [facility] Comment on above: Performed By: #### C DP, CP ####[address] [address] Lymphocytes 2.20 10*3/uL Normal 1.0-4.8 [facility] Comment on above: Performed By: #### C DP, CP ####[facility] [facility] [place] [address] Lymphocytes/100 leukocytes 25 % Normal [facility] Comment on above: Performed By: #### C DP, CP ####[facility] [place] [address].[place] [address] MCH 34.0 pg Normal 26-34 [facility] Comment on above: Performed By: #### C DP, CP ####[facility] [place] [address].[place] [address] MCHC mass conc (RBC) 34.2 g/dL Normal 31-37 [facility] Comment on above: Performed By: #### C DP, CP ####[facility] [facility] [place] [address] MCV 99.3 fL Normal 80-100 [facility] Comment on above: Performed By: #### C DP, CP ####[facility] [facility] [place] [address] Monocytes 0.60 10*3/uL Normal 0.1-1.3 [facility] Comment on above: Performed By: #### C DP, CP ####[facility] [place] [address].[place] [address] Monocytes/100 leukocytes 7 % Normal [facility] Comment on above: Performed By: #### C DP, CP ####[facility] [place] [address].[place] [address] Neutrophil (Seg) 62 % Normal [facility] Comment on above: Performed By: #### C DP, CP ####[place] [address] [facility] [place] [address] Platelet mean volume (PMV) 9.1 fL Normal 6.0-12.0 [facility] Comment on above: Performed By: #### C DP, CP ####[facility] [place] [address] Platelets 225 10*3/uL Normal 150-450 [facility] Comment on above: Performed By: #### C DP, CP ####[facility] [place] [address] WBC (Leukocytes) 8.7 10*3/uL Normal 3.5-11.0 [facility] Comment on above: Performed By: #### C DP, CP ####[address] [address] Auto Diff Performed NOT REPORTED Normal [facility] Comment on above: Performed By: #### C DP, CP ####[facility] [place] [address] Erythrocyte morphology NOT REPORTED Normal [facility] Comment on above: Performed By: #### C DP, CP ####[address] [address] Platelets NOT REPORTED Normal [facility] Comment on above: Performed By: #### C DP, CP ####[address] [address] WBC Morphology NOT REPORTED Normal [facility] Comment on above: Performed By: #### C DP, CP ####[address] [address] Comp Metabolic Profon 2016 (cont.) Normal [facility] Comment on above: Result Comment: Aver age GFR for 40-49 years old: 99 mL/min/1.73sq mChronic Kidney Disease: <60 mL/min/1.73sq mKidney failure: <15 mL/min/1.73sq meGFR calculated using average adult body mass. Additional eGFR calculator available at:http://www.SuperDerivatives/multiple_crcl_2012.htmPerformed at [facility] [address] [place] [address] Performed By: #### C DP, CP ####[facility] [place] [address] Alanine aminotransferase (ALT) 20 U/L Normal 5-41 [facility] Comment on above: Performed By: #### C DP, CP ####[address] [address] Albumin 3.3 g/dL Low 3.5-5.2 [facility] Comment on above: Performed By: #### C DP, CP ####[facility] [place] [address] Alkaline Phos 120 U/L Normal 40-129 [facility] Comment on above: Performed By: #### C DP, CP ####[facility] [place] [address] Anion gap 12 mmol/L Normal 9-17 [facility] Comment on above: Performed By: #### C DP, CP ####[facility] [place] [address] Aspartate aminotransferase (AST) 26 U/L Normal <40 [facility] Comment on above: Performed By: #### C DP, CP ####[address] [address] Bilirubin Ql (U) 0.29 mg/dL Low 0.3-1.2 [facility] Comment on above: Performed By: #### C DP, CP ####[facility] [facility] [place] [address] Calcium 8.4 mg/dL Low 8.6-10.4 [facility] Comment on above: Performed By: #### C DP, CP ####[facility] [place] [address].[place] [address] Chloride 104 mmol/L Normal 98-107 [facility] Comment on above: Performed By: #### C DP, CP ####[facility] [place] [address].[place] [address] CO2 27 mmol/L Normal 20-31 [facility] Comment on above: Performed By: #### C DP, CP ####[facility] [place] [address].[place] [address] Creatinine 0.70 mg/dL Normal 0.70-1.20 [facility] Comment on above: Performed By: #### C DP, CP ####[facility] [place] [address] eGFR (non-black) mL/min/{1.73_m2} Normal >60 [facility] Comment on above: Performed By: #### C DP, CP ####[facility] [place] [address].[place] [address] Glucose mass conc 117 mg/dL High 70-99 [facility] Comment on above: Performed By: #### C DP, CP ####[facility] [place] [address].[place] [address] Potassium molar conc 3.1 mmol/L Low 3.7-5.3 [facility] Comment on above: Performed By: #### C DP, CP ####[facility] [place] [address].[place] [address] Protein 6.2 g/dL Low 6.4-8.3 [facility] Comment on above: Performed By: #### C DP, CP ####[facility] [place] [address] Sodium 143 mmol/L Normal 135-144 [facility] Comment on above: Performed By: #### C DP, CP ####[address] [address] Urea nitrogen 5 mg/dL Low 6-20 [facility] Comment on above: Performed By: #### C DP, CP ####[facility] [place] [address] Albumin/Globulin Ratio NOT REPORTED Normal 1.0-2.5 [facility] Comment on above: Performed By: #### C DP, CP ####[facility] [place] [address] BUN/CRE Ratio NOT REPORTED Normal 9-20 [facility] Comment on above: Performed By: #### C DP, CP ####[facility] [place] [address] Staging: NOT REPORTED Normal [facility] Comment on above: Performed By: #### C DP, CP ####[address] [address] Vital Signs Date Time Vital Sign Value Performing Clinician Facility 08-19-2024 09:30-0500 Body height 170.2 cm Ashanti López BMET Work Phone: [facility] 08-19-2024 09:30-0500 Body mass index (BMI) [Ratio] 38.53 kg/m2 Ashanti López BMET Work Phone: [facility] 08-19-2024 09:30-0500 Body temperature 96.3 [degF] Ashanti López BMET Work Phone: [facility] 08-19-2024 09:30-0500 Body weight 111.58 kg Ashanti López BMET Work Phone: [facility] 08-19-2024 09:30-0500 Diastolic blood pressure 68 mm[Hg] Ashanti López BMET Work Phone: [facility] 08-19-2024 09:30-0500 Heart rate 101 /min Ashanti López BMET Work Phone: [facility] 08-19-2024 09:30-0500 Respiratory rate 16 /min Ashanti López BMET Work Phone: [facility] 08-19-2024 09:30-0500 SaO2% (BldA) [Mass fraction] 96 % Ashanti López BMET Work Phone: [facility] 08-19-2024 09:30-0500 Systolic blood pressure 132 mm[Hg] Ashanti López BMET Work Phone: [facility] 07-28-2024 12:58-0500 Body height 170.[address] MD Work Phone: [facility] 07-28-2024 12:58-0500 Body mass index (BMI) [Ratio] 40.72 kg/m2 Zaria Lane MD Work Phone: [facility] 07-28-2024 12:58-0500 Body weight 117.[address] MD Work Phone: [facility] 07-28-2024 12:58-0500 Diastolic blood pressure 80 mm[Hg] Zaria Lane MD Work Phone: [facility] 07-28-2024 12:58-0500 Heart rate 82 /min Zaria Lane MD Work Phone: [facility] 07-28-2024 12:58-0500 Respiratory rate 18 /min Zaria Lane MD Work Phone: [facility] 07-28-2024 12:58-0500 Systolic blood pressure 116 mm[Hg] Zaria Lane MD Work Phone: [facility] 07-24-2024 08:31-0500 Body height 170.2 cm Anthony Santana DPM Work Phone: [facility] 07-24-2024 08:31-0500 Body mass index (BMI) [Ratio] 40.88 kg/m2 Anthony Santana DPM Work Phone: [facility] 07-24-2024 08:31-0500 Body weight 118.39 kg Anthony Santana DPM Work Phone: [facility] 07-24-2024 08:31-0500 Respiratory rate 16 /min Anthony Santana DPM Work Phone: [facility] 07-02-2024 08:53-0500 Body height 170.2 cm Ashanti López BMET Work Phone: [facility] 07-02-2024 08:53-0500 Body mass index (BMI) [Ratio] 40.88 kg/m2 Ashanti López BMET Work Phone: [facility] 07-02-2024 08:53-0500 Body temperature 97.2 [degF] Ashanti López BMET Work Phone: [facility] 07-02-2024 08:53-0500 Body weight 118.39 kg Ashanti López BMET Work Phone: [facility] 07-02-2024 08:53-0500 Diastolic blood pressure 68 mm[Hg] Ashanti López BMET Work Phone: [facility] 07-02-2024 08:53-0500 Heart rate 97 /min Ashanti López BMET Work Phone: [facility] 07-02-2024 08:53-0500 Respiratory rate 16 /min Ashanti Perezpatrick BMET Work Phone: [facility] 07-02-2024 08:53-0500 SaO2% (BldA) [Mass fraction] 99 % Ashanti López BMET Work Phone: [facility] 07-02-2024 08:53-0500 Systolic blood pressure 128 mm[Hg] Ashanti Coffeyzpatrick BMET Work Phone: [facility] 04-29-2024 11:19-0400 Diastolic blood pressure 71 mm[Hg] AMITA REBECCA [facility] 04-29-2024 11:19-0400 Heart rate 92 /min AMITA REBECCA [facility] 04-29-2024 11:19-0400 Respiratory rate 16 /min AMITA REBECCA [facility] 04-29-2024 11:19-0400 Systolic blood pressure 116 mm[Hg] AMITA REBECCA [facility] 04-17-2024 13:21-0400 Body height 170.2 cm Anthony Santana DPM Work Phone: [facility] 04-17-2024 13:21-0400 Body mass index (BMI) [Ratio] 41.82 kg/m2 Anthony Santana DPM Work Phone: [facility] 04-17-2024 13:21-0400 Body weight 121.11 kg Anthony Santana DPM Work Phone: [facility] 04-17-2024 13:21-0400 Diastolic blood pressure 78 mm[Hg] Anthony Santana DPM Work Phone: [facility] 04-17-2024 13:21-0400 Heart rate 75 /min Anthony Max DPM Work Phone: [facility] 04-17-2024 13:21-0400 Respiratory rate 17 /min Anthony Santana DPM Work Phone: [facility] 04-17-2024 13:21-0400 Systolic blood pressure 116 mm[Hg] Anthony Santana DPM Work Phone: [facility] 04-07-2024 09:01-0400 Body height 170.2 cm Ashanti López BMET Work Phone: [facility] 04-07-2024 09:01-0400 Body mass index (BMI) [Ratio] 41.82 kg/m2 Ashanti López BMET Work Phone: [facility] 04-07-2024 09:01-0400 Body temperature 98.1 [degF] Ashanti López BMET Work Phone: [facility] 04-07-2024 09:01-0400 Body weight 121.11 kg Ashanti López BMET Work Phone: [facility] 04-07-2024 09:01-0400 Diastolic blood pressure 74 mm[Hg] Ashanti López BMET Work Phone: [facility] 04-07-2024 09:01-0400 Heart rate 94 /min Ashanti López BMET Work Phone: [facility] 04-07-2024 09:01-0400 SaO2% (BldA) [Mass fraction] 95 % Ashanti López BMET Work Phone: [facility] 04-07-2024 09:01-0400 Systolic blood pressure 116 mm[Hg] Ashanti López BMET Work Phone: [facility] 04-03-2024 10:32-0400 Blood Pressure Location AMITA FERNANDEZ [facility] 04-03-2024 10:32-0400 Body temperature 98.6 [degF] AMITA REBECCA [facility] 04-03-2024 10:32-0400 Diastolic blood pressure 86 mm[Hg] AMITA REBECCA [facility] 04-03-2024 10:32-0400 Heart rate 80 /min AMITA REBECCA [facility] 04-03-2024 10:32-0400 Respiratory rate 16 /min AMITA REBECCA [facility] 04-03-2024 10:32-0400 Systolic blood pressure 134 mm[Hg] AMITA REBECCA [facility] 03-06-2024 09:04-0400 Body height 170.2 cm Ashanti López BMET Work Phone: [facility] 03-06-2024 09:04-0400 Body mass index (BMI) [Ratio] 41.19 kg/m2 Ashanti López BMET Work Phone: [facility] 03-06-2024 09:04-0400 Body temperature 99.19 [degF] Ashanti López BMET Work Phone: [facility] 03-06-2024 09:04-0400 Body weight 119.3 kg Ashanti López BMET Work Phone: [facility] 03-06-2024 09:04-0400 Diastolic blood pressure 84 mm[Hg] Ashanti López BMET Work Phone: [facility] 03-06-2024 09:04-0400 Heart rate 111 /min Ashanti López BMET Work Phone: [facility] Comment on above: 97% O2 03-06-2024 09:04-0400 Systolic blood pressure 108 mm[Hg] Ashanti Coffeyzpatrick BMET Work Phone: [facility] 11-15-2022 14:53-0400 Blood Pressure Location AMITA FERNANDEZ [facility] 11-15-2022 14:53-0400 Diastolic blood pressure 74 mm[Hg] AMITA REBECCA [facility] 11-15-2022 14:53-0400 Heart rate 68 /min AMITA REBECCA [facility] 11-15-2022 14:53-0400 Respiratory rate 16 /min AMITA REBECCA [facility] 11-15-2022 14:53-0400 Systolic blood pressure 138 mm[Hg] AMITA REBECCA [facility] 01-17-2022 10:08-0400 Blood Pressure Location Tee Almendarez Jr. [facility] 01-17-2022 10:08-0400 Diastolic blood pressure 79 mm[Hg] Tee Almendarez Jr. [facility] 01-17-2022 10:08-0400 Heart rate 81 /min Tee Almendarez Jr. [facility] 01-17-2022 10:08-0400 Respiratory rate 16 /min Tee Almendarez Jr. [facility] 01-17-2022 10:08-0400 Systolic blood pressure 138 mm[Hg] Tee Almendarez Jr. [facility] 11-15-2021 09:32-0400 Blood Pressure Location Tee Almendarez Jr. [facility] 11-15-2021 09:32-0400 Diastolic blood pressure 76 mm[Hg] Tee Almendarez Jr. [facility] 11-15-2021 09:32-0400 Heart rate 97 /min Tee Almendarez Jr. [facility] 11-15-2021 09:32-0400 Respiratory rate 18 /min Tee Almendarez Jr. [facility] 11-15-2021 09:32-0400 Systolic blood pressure 112 mm[Hg] Tee Almendarez Jr. [facility] Encounters Encounter Date Encounter Type Care Provider Facility Start: 10-07-2024 ambulatory Kota Carvalho acility:[facility] Start: 08-26-2024 End: 08-26-[address] MD Work Phone: [facility] Comment on above: Medication Problem Start: 08-19-2024 End: 08-19-2024 Bamboo flowsheet Ashanti López NP Work Phone: [facility] Start: 08-19-2024 End: 08-19-2024 Bamboo flowsheet Ashanti López BMET Work Phone: [facility] Start: 08-19-2024 End: 08-19-2024 Office outpatient visit 10 minutes Ashanti López BMET Work Phone: [facility] Comment on above: Type II diabetes mika litus with complication ([facility]) (Primary Dx); Chronic obstructive pulmonary disease, unspecified COPD type ([facility]) Start: 08-19-2024 End: 08-19-2024 ambulatory ASHANTI LÓPEZ Not Available Start: 07-28-2024 End: 07-28-[address] MD Work Phone: [facility] Start: 07-28-2024 End: 07-28-[address] MD Work Phone: [facility] Start: 07-28-2024 End: 07-28-2024 Office outpatient new [address] MD Work Phone: [facility] Comment on above: Type II diabetes mika litus with complication ([facility]) (Primary Dx); Vitamin D deficiency; Insulin long-term use ([facility]); Encounter for dietary consultation; Class 3 severe obesity due to excess calories with serious comorbidity and body mass index (BMI) of 40.0 to 44.9 in adult ([facility]) Start: 07-28-2024 End: 07-28-[address] Not Available Start: 07-24-2024 End: 07-24-2024 Bamboo flowsheet Anthony Santana DPM Work Phone: [facility] Start: 07-24-2024 End: 07-24-2024 Bamboo flowsheet Anthony Santana DPM Work Phone: [facility] Start: 07-24-2024 End: 07-24-2024 Patient encounter procedure Anthony Santana DPM Work Phone: [facility] Comment on above: Diabetes mellitus du e to underlying condition with diabetic 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, unspecified whether exterminator insulin use (CMS/HCC) (Primary Dx); Pain due to onychomycosis of toenails of both feet; Venous insufficiency Start: 07-24-2024 End: 07-24-2024 ambulatory ANTHONY SANTANA Not Available Start: 07-03-2024 End: 07-03-2024 Orders Only Ashanti López BMET Work Phone: [facility] Comment on above: Type II diabetes mika litus with complication (CMS/HCC) Start: 07-02-2024 End: 07-02-2024 Bamboo flowsheet Ashanti López BMET Work Phone: [facility] Start: 07-02-2024 End: 07-02-2024 Bamboo flowsheet Ashanti López BMET Work Phone: [facility] Start: 07-02-2024 End: 07-02-2024 Office outpatient visit 15 minutes Ashanti Bustostrick BMET Work Phone: [facility] Comment on above: Type 2 diabetes marlena itus without complication, with long-term current use of insulin (CMS/HCC); Type II diabetes mellitus with complication (CMS/HCC) Start: 07-02-2024 End: 07-02-2024 ambulatory ASHANTI LÓPEZ Not Available Start: 06-05-2024 End: 06-05-2024 Orders Only Ashanti López BMET Work Phone: [facility] Comment on above: Type II diabetes mika litus with complication (CMS/HCC) Start: 05-29-2024 End: 05-29-2024 Orders Only Ashanti López BMET Work Phone: [facility] Comment on above: Type II diabetes mika litus with complication (CMS/HCC) (Primary Dx) Start: 05-28-2024 End: 05-29-2024 Telephone encounter [facility] Comment on above: NEW PATIENT REFERRAL Start: 05-19-2024 End: 05-19-2024 Telephone encounter Ashanti López BMET Work Phone: [facility] Start: 04-29-2024 End: 04-29-2024 ambulatory AMITA Huang REBECCA Facility:[facility] Start: 04-29-2024 End: 04-29-2024 Patient encounter procedure AMITA FERNANDEZ [facility] Start: 04-23-2024 End: 04-23-2024 Orders Only Ashanti López BMET Work Phone: [facility] Comment on above: Type II diabetes mika litus with complication (CMS/HCC) (Primary Dx) Start: 04-17-2024 End: 04-17-2024 Bamboo flowsheet Anthony Santana DPM Work Phone: [facility] Start: 04-17-2024 End: 04-17-2024 Bamboo flowsheet Anthony Santana DPM Work Phone: [facility] Start: 04-17-2024 End: 04-17-2024 Patient encounter procedure Anthony Santana DPM Work Phone: [facility] Comment on above: Diabetes mellitus du e to underlying condition with diabetic 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, unspecified whether correction insulin use (CMS/HCC) (Primary Dx); Venous insufficiency; Pain due to onychomycosis of toenails of both feet Start: 04-17-2024 End: 04-17-2024 ambulatory ANTHONY SANTANA Not Available Start: 04-16-2024 End: 04-16-2024 Orders Only Ashanti López BMET Work Phone: [facility] Comment on above: Type II diabetes mika litus with complication (CMS/HCC) (Primary Dx) Start: 04-08-2024 End: 04-08-2024 Orders Only Ashantimoris Bustostrick BMET Work Phone: [facility] Comment on above: Acute swimmer's ear of both sides (Primary Dx); Anal pruritus Type II diabetes mika litus with complication (CMS/HCC) (Primary Dx) Start: 04-07-2024 End: 04-07-2024 Bamboo flowsheet Ashanti Bustostrick BMET Work Phone: [facility] Start: 04-07-2024 End: 04-07-2024 Bamboo flowsheet Ashanti Perezpatrick BMET Work Phone: [facility] Start: 04-07-2024 End: 04-07-2024 Office outpatient visit 15 minutes Ashanti López BMET Work Phone: [facility] Comment on above: Type 2 diabetes marlena itus without complication, with long-term current use of insulin (CMS/HCC) (Primary Dx); Type II diabetes mellitus with complication (CMS/HCC); Anal pruritus; Acute otitis externa of both ears, unspecified type Start: 04-07-2024 End: 04-07-2024 ambulatory ASHANTI RODGERSK Not Available Start: 04-03-2024 End: 04-03-2024 Clinisync Result Encounter Ashanti Bustostrick BMET Work Phone: [facility] Unsolicited Start: 04-03-2024 End: 04-03-2024 Clinisync Result Encounter Ashanti Perezpatrick BMET Work Phone: [facility] Unsolicited Start: 04-03-2024 End: 04-03-2024 ambulatory AMITA FERNANDEZ Facility:[facility] Start: 04-03-2024 End: 04-03-2024 Patient encounter procedure AMITA FERNANDEZ [facility] Start: 03-06-2024 End: 03-06-2024 Bamboo flowsheet Ashanti Bustostrick BMET Work Phone: [facility] Start: 03-06-2024 End: 03-06-2024 Bamboo flowsheet Ashanti Bustostrick BMET Work Phone: [facility] Start: 03-06-2024 End: 03-06-2024 Office outpatient visit 25 minutes Ashantizachary López BMET Work Phone: [facility] Comment on above: Hyperlipidemia, unsp ecified hyperlipidemia type (CMS/HCC) (Primary Dx); Chronic obstructive pulmonary disease, unspecified COPD type (CMS/HCC); Type 2 diabetes mellitus without complication, with long-term current use of insulin (CMS/HCC) Start: 03-06-2024 End: 03-06-2024 ambulatory ASHANTI BUSTOSTRICK Not Available Start: 03-05-2024 End: 03-05-2024 Refill Ashanti López BMET Work Phone: [facility] Start: 12-31-2023 End: 12-31-2023 ambulatory STONE FAWWAD Not Available Start: 11-29-2023 End: 11-29-2023 ambulatory STONE FAWWAD Not Available Start: 11-20-2023 ambulatory AMITA Heard ty:BYRON Rodriguez Start: 10-25-2023 End: 10-25-2023 ambulatory ANTHONY SANTANA Not Available Start: 10-08-2023 End: 10-08-2023 ambulatory STONE FAWWAD Not Available Start: 09-10-2023 End: 09-10-2023 ambulatory STONE FAWWAD Not Available Start: 08-06-2023 End: 08-06-2023 ambulatory STONE FAWWAD Not Available Start: 06-26-2023 End: 06-26-2023 ambulatory STONE FAWWAD Not Available Start: 11-24-2022 End: 11-25-2022 ambulatory STONE H FAWWAD Facility:[facility] Start: 11-15-2022 End: 11-15-2022 Patient encounter procedure AMITA FERNANDEZ [facility] Start: 04-18-2022 End: 04-19-2022 ambulatory STONE H FAWWAD Facility:[facility] Start: 03-24-2022 End: 03-24-2022 ambulatory STONE H FAWWAD Facility:[facility] Start: 03-11-2022 End: 03-11-2022 ambulatory STONE H FAWWAD Facility:[facility] Start: 02-16-2022 ambulatory STONE H FAWWAD Facilit y:[facility] Start: 01-17-2022 End: 01-17-2022 Patient encounter procedure Tee Almendarez Jr. [facility] Start: 01-09-2022 End: 01-10-2022 ambulatory STONE H FAWWAD Facility:[facility] Start: 12-08-2021 End: 12-09-[address] TEE Lopez Facility:[facility] Start: 11-15-2021 End: 11-15-2021 Patient encounter procedure Tee Almendarez Jr. [facility] Start: 04-28-2021 End: 05-04-2021 ambulatory UNKNOWN PROVIDER Facility:[facility] Start: 01-29-2017 End: 02-05-2017 Evaluation and management of inpatient KUL B PIERRE [facility] Procedures Date Procedure Procedure Detail Performing Clinician Start: 07-28-2024 Gluc bld gluc mntr d ev cleared fda spec home use Zaria Lane MD Work Phone: Start: 07-02-2024 Hemoglobin glycosyla josiah a1c Ashanti López BMET Work Phone: Start: 04-03-2024 MLR HEMOGLOBIN A1C Brit moris López BMET Work Phone: Start: 02-05-2017 DISCHARGE PATIENT SUSAN BHARDWAJ Start: [...] PIERRE None (qualifier value) Kwame Almendarez Jr. Plan of Treatment Date Care Activity Detail Author Start: 06-15-2026 Screening for malign ant neoplasm of colon [facility] Start: 12-14-2024 Glaucoma screening Diabetes: R etinopathy Screening [facility] Start: 10-27-2024 End: 10-27-2024 Patient encounter procedure 10/27/2024 1:10 PM EDT Office Visit [facility] [address] [place] [phone] Zaria Lane MD [address] [place] [address] [facility] Start: 10-26-2024 Hemoglobin A1c measurement Diabetes: Hemoglobin A1C [facility] Start: 10-14-2024 End: 10-14-2024 Patient encounter procedure [facility] Start: 10-02-2024 End: 10-02-2024 Patient encounter procedure 10/02/2024 8:30 AM EDT Office Visit [facility] [address] [facility] [address] [place] [id number] Anthony Santana DPM [address] [facility] [address] [place] [address] [facility] Start: 09-30-2024 Hemoglobin A1c measurement Diabetes: Hemoglobin A1C [facility] Start: 09-24-2024 End: 09-24-2024 Patient encounter procedure 09/24/2024 11:00 AM EDT Consult [facility] [address] [place] [phone] MD [address] [place] [address] [facility] Start: 08-19-2024 End: 08-19-2024 Patient encounter procedure 08/19/2024 9:30 AM EST Office Visit [facility] [address] [place] [address] Ashanti López, OPHELIA [address] [place] [phone] Arrived [facility] Comment on above: Arrived Start: 08-06-2024 End: 08-06-2024 Patient encounter procedure 08/06/2024 9:00 AM EST [facility] [address] [place] [address] Ashanti López, OPHELIA [address] [place] [address] [facility] Start: 08-01-2024 Medicare Annual Well ness (AWV) Medicare Annual Wellness (AWV) [facility] Start: 07-28-2024 End: 07-28-2025 25-hydroxyvitamin D3 [Mass/volume] in Serum or Plasma Vitamin D 25 hydroxy Total Lab Routine Type II diabetes mellitus with complication (CMS/HCC) Expected: 07/28/2024 (Approximate), Expires: 07/28/2025 [facility] Comment on above: Expected: 07/28/2024 (Approximate), Expires: 07/28/2025 Start: 07-28-2024 End: 07-28-2025 C-peptide C-peptide Lab Routine Type II diabetes mellitus with complication ([facility]) Expected: 07/28/2024 (Approximate), Expires: 07/28/2025 [facility] Work Phone: Comment on above: Expected: 07/28/2024 (Approximate), Expires: 07/28/2025 Start: 07-28-2024 End: 07-28-2025 Lipid 1996 panel - Serum or Plasma Lipid panel Lab Routine Type II diabetes mellitus with complication ([facility]) Expected: 07/28/2024 (Approximate), Expires: 07/28/2025 [facility] Comment on above: Expected: 07/28/2024 (Approximate), Expires: 07/28/2025 Start: 07-28-2024 End: 07-28-2025 Microalbumin/Creatinine panel in random Urine Microalbumin / creatinine urine ratio Lab Routine Type II diabetes mellitus with complication ([facility]) Expected: 07/28/2024 (Approximate), Expires: 07/28/2025 [facility] Comment on above: Expected: 07/28/2024 (Approximate), Expires: 07/28/2025 Start: 07-28-2024 End: 07-28-2025 Renal function panel Renal function panel Lab Routine Type II diabetes mellitus with complication ([facility]) Expected: 07/28/2024 (Approximate), Expires: 07/28/2025 [facility] Comment on above: Expected: 07/28/2024 (Approximate), Expires: 07/28/2025 Start: 07-28-2024 End: 07-28-2024 Patient encounter procedure [facility] Comment on above: Type II diabetes mika litus with complication ([facility]) Start: 07-24-2024 End: 07-24-2024 Patient encounter procedure [facility] Comment on above: Diabetes mellitus du e to underlying condition with diabetic 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, unspecified whether correction insulin use ([facility]) (Primary Dx); Pain due to onychomycosis of toenails of both feet; Venous insufficiency Start: 07-02-2024 End: 07-02-2024 Patient encounter procedure [facility] Comment on above: Arrived Start: 06-29-2024 Urine screening for protein Diabetes: Urine Protein Screening [facility] Start: 06-18-2024 End: 06-18-2024 Patient encounter procedure 06/18/2024 10:30 AM EST Consult [facility] [address] [place] [phone] MD [address] [place] [address] [facility] Start: 05-20-2024 End: 05-20-2024 Patient encounter procedure 05/20/2024 9:40 AM EST Office Visit [facility] [address] [facility] [address] [place] [phone] Ana Chiu MD [address] [facility] [address] [place] [address] [facility] Start: 04-17-2024 End: 04-17-2024 Patient encounter procedure [facility] Comment on above: Diabetes mellitus du e to underlying condition with diabetic 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, unspecified whether correction insulin use ([facility]) (Primary Dx); Onychomycosis; Toe pain, bilateral; Venous insufficiency Start: 04-07-2024 End: 04-07-2025 Hemoglobin A1c/Hemoglobin.total in Blood Hemoglobin A1c Lab Routine Type II diabetes mellitus with complication ([facility]) Expected: 04/07/2024 (Approximate), Expires: 04/07/2025 [facility] Work Phone: Comment on above: Expected: 04/07/2024 (Approximate), Expires: 04/07/2025 Start: 04-07-2024 End: 04-07-2024 Patient encounter procedure [facility] Comment on above: Type 2 diabetes marlena itus without complication, with long-term current use of insulin ([facility]) (Primary Dx) Start: 03-16-2024 Influenza vaccination N [facility] Start: 03-06-2024 End: 03-06-2025 Hemoglobin A1c/Hemoglobin.total in Blood Hemoglobin A1c Lab Routine Type 2 diabetes mellitus without complication, with long-term current use of insulin ([facility]) Expected: 03/06/2024 (Approximate), Expires: 03/06/2025 [facility] Work Phone: Comment on above: Expected: 03/06/2024 (Approximate), Expires: 03/06/2025 Start: 03-06-2024 End: 03-06-2024 Patient encounter procedure [facility] Comment on above: Hyperlipidemia, unsp ecified hyperlipidemia type ([facility]) (Primary Dx); Chronic obstructive pulmonary disease, unspecified COPD type ([facility]); Type 2 diabetes mellitus without complication, with long-term current use of insulin ([facility]) Start: 12-25-2023 Hemoglobin A1c measurement Diabetes: Hemoglobin A1C [facility] Start: 2022 Administration of varicella zoster vaccine Zoster (Shingles) Vaccine (1 of 2) [facility] Start: 1991 DTaP,Tdap and Td Vaccines (1 - Tdap) DTaP,Tdap and Td Vaccines (1 - Tdap) [facility] Start: 1990 Adult BMI Screening Adult BMI Screen ing [facility] Start: 1990 Diabetic foot examination Diabetic Foot Exam [facility] Start: 1984 Depression Screening Depression Scre ening [facility] Start: 1984 Tobacco Screening Tobacco Screening [facility] Start: 1972 Glaucoma screening Diabetic Op hthalmology Exam [facility] Start: 1972 Screening for malign ant neoplasm of colon [facility] Immunizations Immunization Date Immunization Notes Care Provider Fa cility 01-01-2021 SARS-CoV-2 (COVID-19 ) mRNA BNT-162b2 mehdi FERNANDEZ [facility] Comment on above: Result Comment: 2022: [id number] 12-11-2020 SARS-CoV-2 (COVID-19 ) mRNA BNT-162b2 mehdi FERNANDEZ [facility] Comment on above: Result Comment: 2022: [id number] Payers Date Payer Category Payer Self-pay 2021 Unknown [id number] 2019 Medicare [employer] MEDICARE ADVANTAGE [employer] MEDICARE [id number] 2019-Present [address] [address] [place] [address] [id number] 2019 Medicare (Managed Care) 1.2. [id number] 2016 Medicare [id number] 1972 Unknown [id number] 2.16.840.1.940684.3.579.2 .732 1972 Unknown [id number] 2.16.840.1.701886.3.579.2 .593 1972 Unknown [id number] 2.16.840.1.592442.3.579.2 .593 1972 Unknown [id number] 2.16.840.1.675388.3.579.2 .593 1972 Unknown [id number] 2.16.840.1.284528.3.579.2 .593 1972 Unknown [id number] 2.16.840.1.227011.3.579.2 .593 1972 Unknown [id number] 2.16.840.1.124218.3.579.2 .593 1972 Unknown [id number] 2.16.840.1.039552.3.579.2 .593 1972 Unknown [id number] 2.16.840.1.564166.3.579.2 .593 1972 Unknown [id number] 2.16.840.1.794615.3.579.2 .1259 1972 Unknown [id number] 2.16.840.1.143242.3.579.2 .1259 1972 Unknown [id number] 2.16.840.1.052846.3.579.2 .727 1972 Unknown [id number] 2.16.840.1.186250.3.579.2 .727 1972 Unknown [id number] 2.16.840.1.444956.3.579.2 .7 1972 Unknown [id number] 2.16.840.1.138210.3.579.2 .1258 1972 Unknown [id number] 2.16.840.1.713503.3.579.2 .1258 1972 Unknown [id number] 2..840.1.814891.3.579.2 .1258 1972 Unknown [id number] 2.840.1.510753.3.579.2 .1258 1972 Unknown [id number] .840.1.389078.3.579.2 .1258 1972 Unknown [id number] 2..840.1.627465.3.579.2 .1258 1972 Unknown [id number] 2..840.1.829165.3.579.2 .1258 1972 Unknown [id number] 2.16.840.1.411031.3.579.2 .1258 1972 Unknown [id number] ..840.1.021190.3.579.2 .1258 1972 Unknown [id number] 2.16.840.1.579837.3.579.2 .1258 1972 Unknown [id number] 2.16.840.1.481987.3.579.2 .1258 1972 Unknown [id number] 2.16.840.1.265477.3.579.2 .1259 1959 Medicare [id number] Unknown [id number] 2.16.840.1.311080.3.579.2 .531 Social History Date Type Detail Facility Tobacco Current, Cigaret yao, 40 per day. [facility] Start: 12-25-2018 End: 04-07-2024 Sex Assigned At Male [facility] Start: 01-17-2022 End: 04-29-2024 Tobacco smoking status Heavy tobacco smoker (finding) [facility] Start: 07-16-1988 Tobacco smoking status OKIS Smokes tobacco daily [facility] Start: 07-16-1988 End: 06-15-2024 History of tobacco use Cigarette Smoker [facility] Start: 12-25-2018 End: 12-31-2023 Cigarettes smoked current (pack per day) - Reported 2 [facility] Start: 12-31-2023 End: 07-02-2024 Tobacco use and exposure Smokeless tobacco non-user [facility] Start: 04-07-2024 End: 08-19-2024 Alcoholic beverage intake Current drinker of alcohol (finding) [facility] Start: 06-15-2023 Tobacco Comment 31 or more cigarettes/day [facility] Start: 06-15-2023 Alcohol Comment caffeine: more than 4 cups/day [facility] Start: 1972 Sex assigned at Not on file [facility] Tobacco smoking status Never [facility] Start: 07-02-2024 Tobacco smoking status NHIS Ex-smoker [facility] Start: 07-16-1988 End: 06-15-2024 History of tobacco use Current smoker [facility] Tobacco smoking status [facility] Tobacco smoking consumption unknown [facility] Start: 02-18-2015 Sex Male (finding) [facility] NEGATED: Highlighted rowStart: NINF History of tobacco use Passive smoker [facility] Medical Equipment Procedure Code Equipment Code Equipment Origin al Text Equipment Identifier Dates [id number] Start: 04-07-2024 End: 04-07-2025 Inject 1 each un chandan the skin Daily Use as instructed [id number] Start: 04-16-2024 Functional Status Date Assessment Result Facility 04-29-2024 Functional Status N/A [facility] 04-03-2024 Functional Status N/A [facility] 11-15-2022 Functional Status N/A [facility] 01-17-2022 Functional Status N/A [facility] Clinical Notes 11-15-2021 to 08-26-2024 Telephone Encounter - Thee Neves - 08/26/2024 9:58 AM ESTTelephone Encounter - Thee Neves - 08/26/2024 9:58 AM Jesse López NP - 08/19/2024 10:09 AM ESTPatient Instructions Note Date & Type Note Facility 08-26-2024 Telephone encounter Note Pt says ozempic is $500. Is there a different medication that he can try? Please advise. He's going to try for patient assistance. [facility] 08-26-2024 Miscellaneous Notes Pt says ozempic is $500. Is there a different medication that he can try? Please advise. He's going to try for patient assistance. documented in this encounter [facility] 08-19-2024 History of Present illness Narrative Associated Problem(s): Chronic obstructive pulmonary disease (CMS/HCC) Reports he has recernly stopped smoking and drinking alcohol. States he feels his COPD symptoms are well controlled now compared to several months ago when he was smoking. Reports minimal rescue inhaler use. Continue current regimen. Associated Problem(s): Type II diabetes mellitus with complication (CMS/HCC) Most recent A1C 11.5% 07/2024. Was referred to Endocrinology- is now following with Dr. Lane. Actos was increased, glipizide increased. Lantus increased and started on Semaglutide. States he has been taking medication exactly as directed by Dr. Lane. Reports no adverse reactions to medications, hypoglycemic episodes. Continue current regimen as directed buy Dr. Lane. Images from the original note were not included. Subjective Patient ID: Johnny Verma is a 54 y.o. male who presents for Follow-up. HPI Pt here today for 6 week follow up. Since last appointment was able to get in to see Dr. Lane- Endocrinology. DMII: Most recent A1C 11.5% 07/2024. Was referred to Endocrinology- is now following with Dr. Lane. At that OV Actos was increased, glipizide increased. Lantus increased and started on Semaglutide. States he has been taking medication exactly as directed by Dr. Lane. Reports no adverse reactions to medications, hypoglycemic episodes. Continue current regimen as directed buy Dr. Lane. COPD: Reports he has recernly stopped smoking and drinking alcohol. States he feels his COPD symptoms are well controlled now compared to several months ago when he was smoking. Reports minimal rescue inhaler use. Continue current regimen. Review of Systems Constitutional: Negative for activity change, appetite change, chills, diaphoresis, fatigue, fever and unexpected weight change. HENT: Negative for congestion, ear pain, rhinorrhea, sinus pressure, sinus pain, sneezing, sore throat, trouble swallowing and voice change. Eyes: Negative for visual disturbance. Respiratory: Negative for cough, chest tightness, shortness of breath and wheezing. Cardiovascular: Negative for chest pain, palpitations and leg swelling. Gastrointestinal: Negative for abdominal distention, abdominal pain, blood in stool, constipation, diarrhea and vomiting. Genitourinary: Negative for decreased urine volume, dysuria, flank pain, frequency, hematuria and urgency. Musculoskeletal: Negative for arthralgias, gait problem, joint swelling and myalgias. Skin: Negative for rash. Neurological: Negative for dizziness, tremors, syncope, weakness, light-headedness and headaches. Psychiatric/Behavioral: Negative for decreased concentration and suicidal ideas. The patient is not nervous/anxious. Hematological: Does not bruise/bleed easily. Endocrine: Negative for cold intolerance, heat intolerance, polydipsia, polyphagia and polyuria. Objective Physical Exam Vitals reviewed. Constitutional: Appearance: Normal appearance. HENT: Right Ear: Tympanic membrane normal. Left Ear: Tympanic membrane normal. Nose: Nose normal. Mouth/Throat: Mouth: Mucous membranes are moist. Pharynx: Oropharynx is clear. Eyes: Pupils: Pupils are equal, round, and reactive to light. Cardiovascular: Rate and Rhythm: Normal rate and regular rhythm. Pulses: Normal pulses. Heart sounds: Normal heart sounds. Pulmonary: Effort: Pulmonary effort is normal. Breath sounds: Normal breath sounds. Abdominal: General: Abdomen is flat. Bowel sounds are normal. Palpations: Abdomen is soft. Skin: Capillary Refill: Capillary refill takes less than 2 seconds. Neurological: Mental Status: He is alert and oriented to person, place, and time. Assessment/Plan Problem List Items Addressed This Visit Chronic obstructive pulmonary disease ([facility]) Reports he has recernly stopped smoking and drinking alcohol. States he feels his COPD symptoms are well controlled now compared to several months ago when he was smoking. Reports minimal rescue inhaler use. Continue current regimen. Type II diabetes mellitus with complication ([facility]) - Primary Most recent A1C 11.5% 07/2024. Was referred to Endocrinology- is now following with Dr. Lane. Actos was increased, glipizide increased. Lantus increased and started on Semaglutide. States he has been taking medication exactly as directed by Dr. Lane. Reports no adverse reactions to medications, hypoglycemic episodes. Continue current regimen as directed buy Dr. Lane. documented in this encounter [facility] 08-19-2024 Instructions Ashanti López NP - 08/19/2024 9:30 AM EST Keep ALL appointments as scheduled with ALL of your specialists. Have your lab work done before your next visit with Dr. Lane in October. Call if you need anything! documented in this encounter [facility] 07-28-2024 History of Present illness Narrative Johnny Verma is a 54 y.o. male Ashanti López, * presents with chief complaint of Diabetes HPI: HPI 07/2024 New Patient sent from Ashanti López for uncontrolled diabetes, A1c in our office 11.5, blood sugar 484, currently is on glipizide 5 mg twice a day, Lantus increased to 30 units, Actos 50 mg once daily, unable to take metformin, denies coronary artery disease or stroke, had blurrd vision, had neuropathy no amputation, kidney function within normal limits, lab in December/2023 total cholesterol 128, triglycerides 168, HDL 36, LDL 59. SUBJECTIVE: MEDICATIONS: Current Outpatient Medications Medication Instructions albuterol (2.5 MG/3ML) 0.083% nebulizer solution Every 4 hours PRN albuterol HFA 90 mcg/act inhaler 2 puffs, Every 4 hours PRN Alcohol Swabs (Alcohol Pads) 70 % pads 1 Pad, Every 12 hours Continuous Glucose Mixer Tender (FreeStyle Tenzin 2 Switchback) device 1 Device, Does not apply, Once Continuous Glucose Sensor (FreeStyle Tenzin 2 Sensor) misc 1 Bar, Does not apply, Every 14 days dapagliflozin (FARXIGA) 5 mg, Oral, Daily glipiZIDE XL (GLUCOTROL XL) 10 mg, Oral, 2 times daily, Do not crush, chew, or split. glucose blood ([employer]S Glucose Meter Test Strips) test strip Use as instructed Lancets Ultra Thin 30G misc 1 Lancet, Every 12 hours Lantus SoloStar 40 Units, Subcutaneous, Nightly Ozempic (0.25 or 0.5 MG/DOSE) 0.5 mg, Subcutaneous, Every 7 days pen needle 31G x 5 mm misc 1 each, Subcutaneous, Daily, Use as instructed pioglitazone (ACTOS) 45 mg, Oral, Daily Xanomeline-Trospium Chloride (Cobenfy) 50-20 MG capsule Take by mouth ALLERGIES: Allergies Allergen Reactions Metformin GI intolerance Amitriptyline Palpitations Past Medical History: Diagnosis Date Acute otitis externa of right ear, unspecified type Allergic rhinitis, seasonal Anal pruritus Anxiety anxiety/depression Chronic suppurative otitis media of both ears Chronic suppurative otitis media of left ear COPD (chronic obstructive pulmonary disease) ([facility]) COVID-19 spring 2019 Depression ([facility]) DM (diabetes mellitus), type 2 ([facility]) Dysmetabolic syndrome X History of being hospitalized psychiatric,pneumonia,COPD Hypogonadism, male Insomnia Mental health disorder Mixed conductive and sensorineural hearing loss of left ear with restricted hearing of right ear Obese On combination antipsychotic drug therapy Osteoarthritis of knee Pancreatitis Paresthesia of hand Recurrent acute otitis media Schizophrenia ([facility]) Skin excoriation Sleep apnea, obstructive Smoking Tingling in extremities Type 2 diabetes mellitus, with long-term current use of insulin ([facility]) No past surgical history on file. REVIEW OF SYMPTOMS: 14 POINT OF SYSTEM REVIEWED AND NEGATIVE OBJECTIVE: Constitutional: Afebrile @ home; no weakness or night sweats SKIN: No change in skin color; no itching, rash or lesions; no hair loss; HEENT: No HAs or injury; no dizziness; No difficulty with vision; no eye pain, discharge or lesions; no hearing loss or difficulty; no nasal discharge, NECK: No pain, limitation of motion, lumps or swollen glands RESP: No cough, wheezing or difficulty breathing. No CP with breathing; CARDIO: No CP , SOB or fatigue, No edema, palpitations or dyspnea with exertion GI: No N/V/D or abd. pain; good appetite with no recent change. No heart burn, liver or gallbladder disease; no rectal bleeding or pain : No urinary pain , frequency or odor. MUSCULOSKELETAL: No muscle pain or cramps; no extremity weakness.No joint pain, stiffness, swelling or limitation of movement NEUROLOGY: No H/O seizures, stroke or fainting. No weakness, tremors. Hematology: No bleeding problems or excessive bruising ENDOCRINE: No increase in hunger, thirst or urination; admits compliance to medical management plan Feet: numbness tingling no , ulcers or skin break no Lab Results Component Value Date HGBA1C 11.5 07/28/2024 HGBA1C 12.6 07/02/2024 HGBA1C 9.9 (H) 04/03/2024 Lab Results Component Value Date GLU 484 07/28/2024 GLU 151 (H) 01/01/2024 GLU 142 (H) 06/29/2023 Visit Vitals BP 116/80 Pulse 82 Resp 18 Ht 5' 7 Wt 260 lb BMI 40.72 kg/m Smoking Status Former BSA 2.36 m ASSESSMENT AND PLAN: Assessment/Plan Diagnoses and all orders for this visit: Type II diabetes mellitus with complication ([facility]) - Ambulatory referral to Endocrinology - POCT glycosylated hemoglobin (Hb A1C) docked device - POCT glucose manually resulted - glipiZIDE XL (Glucotrol XL) 10 MG 24 hr tablet; Take 1 tablet (10 mg) by mouth in the morning and 1 tablet (10 mg) before bedtime. Do not crush, chew, or split.. - pioglitazone (Actos) 45 MG tablet; Take 1 tablet (45 mg) by mouth Daily - Semaglutide,0.25 or 0.5MG/DOS, (Ozempic, 0.25 or 0.5 MG/DOSE,) 2 MG/3ML solution pen-injector; Inject 0.5 mg under the skin every 7 (seven) days - insulin glargine (Lantus SoloStar) 100 UNIT/ML pen; Inject 40 Units under the skin at bedtime - Continuous Glucose Mixer Tender (FreeStyle Tenzin 2 Switchback) device; 1 Device 1 (one) time for 1 dose - Continuous Glucose Sensor (FreeStyle Tenzin 2 Sensor) misc; 1 Bar every 14 (fourteen) days - C-peptide; Future - Vitamin D 25 hydroxy Total; Future - Microalbumin / creatinine urine ratio; Future - Lipid panel; Future - Renal function panel; Future I will increase Lantus to 40 units at bedtime, increase glipizide to 10 mg twice a day, increase Actos to 45 mg once a day, I will add Ozempic 0.25 mg once weekly for 2 weeks then we will increase it to 0.5, we will start freestyle Tenzin system 2, all prescriptions sent, we will check lab before next visit including C-peptide. Vitamin D deficiency Insulin long-term use ([facility]) Encounter for dietary consultation Diet and exercise reviewed with the patient Class 3 severe obesity due to excess calories with serious comorbidity and body mass index (BMI) of 40.0 to 44.9 in adult ([facility]) Advised to learn about carb count Follow up in about 3 months (around 10/26/2024). documented in this encounter [facility] 07-24-2024 History of Present illness Narrative Patient: Johnny Verma : 1970 PCP: Horace Stiles MD SUBJECTIVE This is a 54 y.o. male that presents today with a CC of elongated, thick nails. Pt states nails have been elongated and thick for many years and cause pain with ambulation in shoegear. Pt has tried previous treatment with minimal relief. Pt presents today for nail care and treatment. Patient is DM2 with peripheral neuropathy Pt also has history of venous stasis to b/l lower extremities. Allergies: Allergies Allergen Reactions Metformin GI intolerance Amitriptyline Palpitations Past Medical History: Past Medical History: Diagnosis Date Acute otitis externa of right ear, unspecified type Allergic rhinitis, seasonal Anal pruritus Anxiety anxiety/depression Chronic suppurative otitis media of both ears Chronic suppurative otitis media of left ear COPD (chronic obstructive pulmonary disease) ([facility]) COVID-19 spring 2019 Depression ([facility]) DM (diabetes mellitus), type 2 ([facility]) Dysmetabolic syndrome X History of being hospitalized psychiatric,pneumonia,COPD Hypogonadism, male Insomnia Mental health disorder Mixed conductive and sensorineural hearing loss of left ear with restricted hearing of right ear Obese On combination antipsychotic drug therapy Osteoarthritis of knee Pancreatitis Paresthesia of hand Recurrent acute otitis media Schizophrenia ([facility]) Skin excoriation Sleep apnea, obstructive Smoking Tingling in extremities Type 2 diabetes mellitus, with long-term current use of insulin ([facility]) Medications: Current Outpatient Medications: albuterol (2.5 MG/3ML) 0.083% nebulizer solution, Take by nebulization every 4 (four) hours if needed for wheezing or shortness of breath, Disp: , Rfl: albuterol HFA 90 mcg/act inhaler, Inhale 2 puffs every 4 (four) hours if needed for wheezing, Disp: , Rfl: Alcohol Swabs (Alcohol Pads) 70 % pads, 1 Pad every 12 (twelve) hours, Disp: , Rfl: dapagliflozin (Farxiga) 5 MG, Take 1 tablet (5 mg) by mouth Daily, Disp: 30 tablet, Rfl: 11 glipiZIDE (Glucotrol) 5 MG tablet, Take 1 tablet (5 mg) by mouth in the morning and 1 tablet (5 mg) in the evening. Take before meals., Disp: 60 tablet, Rfl: 2 glucose blood ([facility]S Glucose Meter Test Strips) test strip, Use as instructed, Disp: 100 each, Rfl: 12 insulin glargine (Lantus SoloStar) 100 UNIT/ML pen, Inject 30 Units under the skin at bedtime, Disp: 9 mL, Rfl: 11 Lancets Ultra Thin 30G misc, 1 Lancet every 12 (twelve) hours, Disp: , Rfl: pen needle 31G x 5 mm misc, Inject 1 each under the skin Daily Use as instructed, Disp: 100 each, Rfl: 2 pioglitazone (Actos) 15 MG tablet, Take 1 tablet (15 mg) by mouth Daily, Disp: 30 tablet, Rfl: 11 Xanomeline-Trospium Chloride (Cobenfy) 50-20 MG capsule, Take by mouth, Disp: , Rfl: Social History: Social History Socioeconomic History Marital status: Spouse name: Not on file Number of children: Not on file Years of education: Not on file Highest education level: Not on file Occupational History Not on file Tobacco Use Smoking status: Former Current packs/day: 0.00 Average packs/day: 2.0 packs/day for 35.9 years (71.8 ttl pk-yrs) Types: Cigarettes Start date: 1988 Quit date: 06/15/2024 Years since quittin.0 Passive exposure: Never Smokeless tobacco: Never Tobacco comments: 31 or more cigarettes/day Vaping Use Vaping status: Every Day Substances: Nicotine Devices: Refillable tank Substance and Sexual Activity Alcohol use: Yes Alcohol/week: 7.0 standard drinks of alcohol Types: 7 Cans of beer per week Comment: caffeine: more than 4 cups/day Drug use: Never Sexual activity: Defer Other Topics Concern Not on file Social History Narrative Not on file Social Drivers of Health Financial Resource Strain: Not on file Food Insecurity: Not on file Transportation Needs: Not on file Physical Activity: Not on file Stress: Not on file Social Connections: Not on file Intimate Partner Violence: Not on file Housing Stability: Not on file ROS: Gastrointestinal: denies abdominal pain, ulcers, or changes in appetite or bowel habits Musculoskeletal: Positive generalized arthritis to joints and denies loss of strength. Cardiovascular: denies CP, palpitations, irregular rhythms OBJECTIVE LE EXAM: DERM: Elongated thick yellow crumbly nails digits 1 through 10. Negative hair growth with thin shiny atrophic skin bilaterally. +1 pitting edema to bilateral ankles VASC: Positive DP and negative PT pedal pulses NEURO: 5.07 Imperial Maddie monofilament test intact to digits and forefoot bilaterally 125Hz tuning fork diminished to 1st MPJ bilaterally ORTHO: Positive pain on palpation to nails 1 through 10 ASSESSMENT 1. Diabetes mellitus due to underlying condition with diabetic 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, unspecified whether correction insulin use ([facility]) 2. Pain due to onychomycosis of toenails of both feet 3. Venous insufficiency PLAN Discussed proper foot care with patient today. Debride nails in length and thickness digits 1 through 10 Patient educated today on proper diabetic foot care including monitoring feet daily for any signs of infection openings in the skin or irregularities to both feet. Patient had a diabetic neurological exam today to both their feet and discussed proper shoe gear. Visit spent with patient education on condition and treatment of condition. Anthony Santana DPM documented in this encounter [facility] 07-02-2024 History of Present illness Narrative Associated Problem(s): Hyperlipidemia ([facility]) Not on any medication therapy currently. Triglycerides are slightly elevated. Continue to monitor closely with psychiatric medications Associated Problem(s): Type II diabetes mellitus with complication ([facility]) Currently taking Glipizide 5mg BID Actos 15 Lantus 25u Nightly Most recent labs: hemoglobin A1C 12.6% Average FSBS range from BGs range between 300 and 400 Checks BG levels using: standard glucose accucheck meter Will add Farxiga 5mg today and give samples in office. Will increase Lantus to 30 units nightly Pt reports BH stopped Vraylar due to his elevated BG levels. Is now taking Cobenfy. I had placed referral to Endocrinology several months ago for pt. He still has not been seen, due to pt canceling appointment. Appointment scheduled for 09/2024. No episode of hypoglycemia No medication adverse effects reported by the patient. Patient educated on lifestyle modifications, dietary restrictions, signs and symptoms of hypoglycemia/hyperglycemia and importance of eating regular consistent meals. Stressed upon importance of checking blood glucose at home and bring blood glucose log to appointments. All questions, concerns answered and addressed. Encouraged to call office if persistent hypoglycemia/hyperglycemia on home glucose monitoring noted. Images from the original note were not included. Subjective Patient ID: Johnny Verma is a 54 y.o. male who presents for Follow-up. HPI DMII: Currently taking Glipizide 5mg BID Actos 15 Lantus 25u Nightly Most recent labs: hemoglobin A1C 12.6% Average FSBS range from BGs range between 300 and 400 Checks BG levels using: standard glucose accucheck meter Will add Farxiga 5mg today and give samples in office. Will increase Lantus to 30 units nightly Pt reports BH stopped Vraylar due to his elevated BG levels. Is now taking Cobenfy. I had placed referral to Endocrinology several months ago for pt. He still has not been seen, due to pt canceling appointment. Appointment scheduled for 09/2024. No episode of hypoglycemia No medication adverse effects reported by the patient. Patient educated on lifestyle modifications, dietary restrictions, signs and symptoms of hypoglycemia/hyperglycemia and importance of eating regular consistent meals. Stressed upon importance of checking blood glucose at home and bring blood glucose log to appointments. All questions, concerns answered and addressed. Encouraged to call office if persistent hypoglycemia/hyperglycemia on home glucose monitoring noted. Education: Check blood sugars daily, notify if <70 or >200. Take medications (pills or insulin) as directed. Monitor for s/s of hypoglycemia (sweaty, dizziness, nausea, vomiting, or shakiness). Watch for increase in thirst, urination, or appetite. Inspect feet frequently monitoring for open wounds , and also recommend yearly eye exam. Pt should attempt to remain as physically active as chronic conditions allow, as well as trying to follow a diet low in carbohydrates, and simple sugars. HLD: Not on any medication therapy. Triglycerides are slightly elevated. Continue to monitor closely with psychiatric medications Review of Systems Constitutional: Negative for activity change, appetite change, chills, diaphoresis, fatigue, fever and unexpected weight change. HENT: Negative for congestion, ear pain, rhinorrhea, sinus pressure, sinus pain, sneezing, sore throat, trouble swallowing and voice change. Eyes: Negative for visual disturbance. Respiratory: Negative for cough, chest tightness, shortness of breath and wheezing. Cardiovascular: Negative for chest pain, palpitations and leg swelling. Gastrointestinal: Negative for abdominal distention, abdominal pain, blood in stool, constipation, diarrhea and vomiting. Genitourinary: Negative for decreased urine volume, dysuria, flank pain, frequency, hematuria and urgency. Musculoskeletal: Negative for arthralgias, gait problem, joint swelling and myalgias. Skin: Negative for rash. Neurological: Negative for dizziness, tremors, syncope, weakness, light-headedness and headaches. Psychiatric/Behavioral: Negative for decreased concentration and suicidal ideas. The patient is not nervous/anxious. Hematological: Does not bruise/bleed easily. Endocrine: Negative for cold intolerance, heat intolerance, polydipsia, polyphagia and polyuria. Objective Physical Exam Vitals reviewed. Constitutional: Appearance: Normal appearance. HENT: Right Ear: Tympanic membrane normal. Left Ear: Tympanic membrane normal. Nose: Nose normal. Mouth/Throat: Mouth: Mucous membranes are moist. Pharynx: Oropharynx is clear. Eyes: Pupils: Pupils are equal, round, and reactive to light. Cardiovascular: Rate and Rhythm: Normal rate and regular rhythm. Pulses: Normal pulses. Heart sounds: Normal heart sounds. Pulmonary: Effort: Pulmonary effort is normal. Breath sounds: Normal breath sounds. Abdominal: General: Abdomen is flat. Bowel sounds are normal. Palpations: Abdomen is soft. Musculoskeletal: General: Normal range of motion. Skin: General: Skin is warm and dry. Capillary Refill: Capillary refill takes less than 2 seconds. Neurological: Mental Status: He is alert and oriented to person, place, and time. Assessment/Plan Problem List Items Addressed This Visit Type II diabetes mellitus with complication ([facility]) Currently taking Glipizide 5mg BID Actos 15 Lantus 25u Nightly Most recent labs: hemoglobin A1C 12.6% Average FSBS range from BGs range between 300 and 400 Checks BG levels using: standard glucose accucheck meter Will add Farxiga 5mg today and give samples in office. Will increase Lantus to 30 units nightly Pt reports BH stopped Vraylar due to his elevated BG levels. Is now taking Cobenfy. I had placed referral to Endocrinology several months ago for pt. He still has not been seen, due to pt canceling appointment. Appointment scheduled for 09/2024. No episode of hypoglycemia No medication adverse effects reported by the patient. Patient educated on lifestyle modifications, dietary restrictions, signs and symptoms of hypoglycemia/hyperglycemia and importance of eating regular consistent meals. Stressed upon importance of checking blood glucose at home and bring blood glucose log to appointments. All questions, concerns answered and addressed. Encouraged to call office if persistent hypoglycemia/hyperglycemia on home glucose monitoring noted. Relevant Medications insulin glargine (Lantus SoloStar) 100 UNIT/ML pen glipiZIDE (Glucotrol) 5 MG tablet Other Visit Diagnoses Type 2 diabetes mellitus without complication, with long-term current use of insulin ([facility]) Relevant Medications dapagliflozin (Farxiga) 5 MG Other Relevant Orders POCT glycosylated hemoglobin (Hb A1C) docked device (Completed) documented in this encounter [facility] 07-02-2024 Instructions Ashanti López NP - 07/02/2024 9:00 AM EST Check BG levels daily- Please record in BG log and call office with results around August 04!!! Please call Endocrinology and get in to see them sooner than September! KEEP ALL APPOINTMENTS SCHEDULED!!! Education: Check blood sugars daily, notify if <70 or >200. Take medications (pills or insulin) as directed. Monitor for s/s of hypoglycemia (sweaty, dizziness, nausea, vomiting, or shakiness). Watch for increase in thirst, urination, or appetite. Inspect feet frequently monitoring for open wounds , and also recommend yearly eye exam. Pt should attempt to remain as physically active as chronic conditions allow, as well as trying to follow a diet low in carbohydrates, and simple sugars. documented in this encounter [facility] 05-28-2024 Miscellaneous Notes First Attempt Made from [employer] FULL New patient referral received. Dx:Type II diabetes mellitus with complication (CMS-HCC) [E11.8] Polyneuropathy [G62.9]/ Referred by:VERNELL Hoskins Referred to: Providers patient can see in clinic (Make sure if AGUILA is listed the patient has not seen a Neurologist before): Please contact patient to schedule from referral, Thanks! PLEASE REVIEW PLAN OVER THE PHONE AND ADVISE PATIENT TO BRING UPDATED INSURANCE INFORMATION TO THEIR NEW PATIENT APPOINTMENT 2nd attempt: Media Intern contacted patient once more attempting to inform patient that we have received their new patient referral and are calling to schedule them in with our first available appointment with our clinic. Patient appeared to answer phone but there was no response on the other end. RANDEEI. documented in this encounter [facility] 05-28-2024 Telephone encounter Note First Attempt Made from [employer] FULL New patient referral received. Dx:Type II diabetes mellitus with complication (CMS-HCC) [E11.8] Polyneuropathy [G62.9]/ Referred by:VERNELL Hoskins Referred to: Providers patient can see in clinic (Make sure if AGUILA is listed the patient has not seen a Neurologist before): Please contact patient to schedule from referral, Thanks! PLEASE REVIEW PLAN OVER THE PHONE AND ADVISE PATIENT TO BRING UPDATED INSURANCE INFORMATION TO THEIR NEW PATIENT APPOINTMENT [facility] 05-28-2024 Telephone encounter Note 2nd attempt: Media Intern contacted patient once more attempting to inform patient that we have received their new patient referral and are calling to schedule them in with our first available appointment with our clinic. Patient appeared to answer phone but there was no response on the other end. FYI. [facility] 05-19-2024 Telephone encounter Note Spoke with patient again today to discuss his current medication regimen and diabetes. Johnny reports he has still not been taking glipizide 5mg BID, has not been taking it at all. Did increase Lantuss to 20 units but also changes dosing when he feels is necessary. I discussed in thorough detail with patient the significance of adhering to medication regimen as prescribed. I asked patient what I can do to help support him in medication compliance and discussed the risks associated with his disease process being unmanaged. Johnny reports his Father is a diabetic and he has been treating himself similiarly to his father's regimen. I explained to him that his care ids individualized and it is imperative he follows the medication regimen prescribed to him only. I advised Johnny again, to take Glipizide 5mg twice daily as prescribed, in addition to Lantus 20units nightly. Record his blood glucose levels 3 times per day and to call my office back with results on . Johnny repeated these instructions back to me and verified he understood. I advised patient I will be referring him to Endocrinology for further management of his diabetes. I explained to patient I will continue being his primary care provider but if he continues to change his medication regimen against medical advise, I will require him to see a new primary care provider. [facility] 05-19-2024 Miscellaneous Notes Spoke with patient again today to discuss his current medication regimen and diabetes. Johnny reports he has still not been taking glipizide 5mg BID, has not been taking it at all. Did increase Lantuss to 20 units but also changes dosing when he feels is necessary. I discussed in thorough detail with patient the significance of adhering to medication regimen as prescribed. I asked patient what I can do to help support him in medication compliance and discussed the risks associated with his disease process being unmanaged. Johnny reports his Father is a diabetic and he has been treating himself similiarly to his father's regimen. I explained to him that his care ids individualized and it is imperative he follows the medication regimen prescribed to him only. I advised Johnny again, to take Glipizide 5mg twice daily as prescribed, in addition to Lantus 20units nightly. Record his blood glucose levels 3 times per day and to call my office back with results on . Johnny repeated these instructions back to me and verified he understood. I advised patient I will be referring him to Endocrinology for further management of his diabetes. I explained to patient I will continue being his primary care provider but if he continues to change his medication regimen against medical advise, I will require him to see a new primary care provider. documented in this encounter [facility] 05-02-2024 Note Patient Education Urology Erectile Dysfunction Erectile dysfunction [...] these instructions at home: Medicines ? Take haoi-eic-ktnrjwb and prescription medicines only as told by [...] products that contain nicotine or tobacco. These (more content not included)... [facility] 04-23-2024 History of Present illness Narrative Called and spoke with patient directly. Advised pt to increase lantus to 20units daily. START taking Glipizide 5mg TWICE daily as we had previously discussed. Pt is to continue recording BG levels and call the office back in one week with readings. If levels are still elevated at that time we will make further medication adjustments and evaluate need for addition of Novolin again. Explained in thorough detail with patient the significance of adhering to his medication regimen as directed. Pt verbalized understanding and stated he would be picking medications up from pharmacy today. documented in this encounter [facility] 04-17-2024 History of Present illness Narrative Patient: Johnny Verma : 1970 PCP: Horace Stiles MD SUBJECTIVE This is a 53 y.o. male that presents today with a CC of elongated, thick nails. Pt states nails have been elongated and thick for many years and cause pain with ambulation in shoegear. Pt has tried previous treatment with minimal relief. Pt presents today for nail care and treatment. Patient is DM2 with peripheral neuropathy Pt also has history of venous stasis to b/l lower extremities. Allergies: Allergies Allergen Reactions Metformin GI intolerance Amitriptyline Palpitations Past Medical History: Past Medical History: Diagnosis Date Acute otitis externa of right ear, unspecified type Allergic rhinitis, seasonal Anal pruritus Anxiety anxiety/depression Chronic suppurative otitis media of both ears Chronic suppurative otitis media of left ear COPD (chronic obstructive pulmonary disease) ([facility] COVID-19 spring 2019 Depression ([facility]) DM (diabetes mellitus), type 2 ([facility]) Dysmetabolic syndrome X History of being hospitalized psychiatric,pneumonia,COPD Hypogonadism, male Insomnia Mental health disorder Mixed conductive and sensorineural hearing loss of left ear with restricted hearing of right ear Obese On combination antipsychotic drug therapy Osteoarthritis of knee Pancreatitis Paresthesia of hand Recurrent acute otitis media Schizophrenia ([facility]) Skin excoriation Sleep apnea, obstructive Smoking Tingling in extremities Type 2 diabetes mellitus, with long-term current use of insulin ([facility]) Medications: Current Outpatient Medications: albuterol (2.5 MG/3ML) 0.083% nebulizer solution, Take by nebulization every 4 (four) hours if needed for wheezing or shortness of breath, Disp: , Rfl: albuterol HFA 90 mcg/act inhaler, Inhale 2 puffs every 4 (four) hours if needed for wheezing, Disp: , Rfl: Alcohol Swabs (Alcohol Pads) 70 % pads, 1 Pad every 12 (twelve) hours, Disp: , Rfl: glipiZIDE (Glucotrol) 5 MG tablet, Take 1 tablet (5 mg) by mouth in the morning and 1 tablet (5 mg) in the evening. Take before meals., Disp: 60 tablet, Rfl: 1 glucose blood ([facility] Glucose Meter Test Strips) test strip, Use as instructed, Disp: 100 each, Rfl: 12 hydrocortisone (Anusol-HC) 25 MG suppository, Insert 1 suppository (25 mg) into the rectum in the morning and 1 suppository (25 mg) before bedtime. Do all this for 10 days., Disp: 12 suppository, Rfl: 0 Lancets Ultra Thin 30G misc, 1 Lancet every 12 (twelve) hours, Disp: , Rfl: ofloxacin (Floxin) 0.3 % otic solution, Administer 10 drops into affected ear(s) Daily for 7 days, Disp: 5 mL, Rfl: 0 OLANZapine (ZyPREXA) 10 MG tablet, Take 10 mg by mouth at bedtime, Disp: , Rfl: pen needle 31G x 5 mm misc, Inject 1 each under the skin 1 (one) time each day Use as instructed, Disp: , Rfl: Social History: Social History Socioeconomic History Marital status: Spouse name: Not on file Number of children: Not on file Years of education: Not on file Highest education level: Not on file Occupational History Not on file Tobacco Use Smoking status: Every Day Current packs/day: 2.00 Average packs/day: 2.0 packs/day for 35.7 years (71.5 ttl pk-yrs) Types: Cigarettes Start date: 1988 Passive exposure: Never Smokeless tobacco: Never Tobacco comments: 31 or more cigarettes/day Vaping Use Vaping status: Never Used Substance and Sexual Activity Alcohol use: Yes Alcohol/week: 7.0 standard drinks of alcohol Types: 7 Cans of beer per week Comment: caffeine: more than 4 cups/day Drug use: Never Sexual activity: Defer Other Topics Concern Not on file Social History Narrative Not on file Social Determinants of Health Financial Resource Strain: Not on file Food Insecurity: Not on file Transportation Needs: Not on file Physical Activity: Not on file Stress: Not on file Social Connections: Not on file Intimate Partner Violence: Not on file Housing Stability: Not on file ROS: Gastrointestinal: denies abdominal pain, ulcers, or changes in appetite or bowel habits Musculoskeletal: Positive generalized arthritis to joints and denies loss of strength. Cardiovascular: denies CP, palpitations, irregular rhythms OBJECTIVE LE EXAM: DERM: Elongated thick yellow crumbly nails digits 1 through 10. Negative hair growth with thin shiny atrophic skin bilaterally. +1 pitting edema to bilateral ankles VASC: Positive DP and negative PT pedal pulses NEURO: 5.07 Imperial Maddie monofilament test intact to digits and forefoot bilaterally 125Hz tuning fork diminished to 1st MPJ bilaterally ORTHO: Positive pain on palpation to nails 1 through 10 ASSESSMENT 1. Diabetes mellitus due to underlying condition with diabetic 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, unspecified whether exterminator insulin use ([facility]) 2. Onychomycosis 3. Toe pain, bilateral 4. Venous insufficiency PLAN Discussed proper foot care with patient today. Debride nails in length and thickness digits 1 through 10 Patient educated today on proper diabetic foot care including monitoring feet daily for any signs of infection openings in the skin or irregularities to both feet. Patient had a diabetic neurological exam today to both their feet and discussed proper shoe gear. Visit spent with patient education on condition and treatment of condition. Anthony Santana DPM documented in this encounter [facility] 04-08-2024 History of Present illness Narrative Associated Problem(s): Type II diabetes mellitus with complication ([facility]) Was on Novolin 70/30 60u BID but was D/C'd due to stable BG readings in December. States FSBS are in the 100's-120's but is curious about going back on insulin because he may or may not be drinking again. But reports he has been eating salads, following DM diet. But drinks sometimes Most recent labs: hemoglobin A1C 9.9% Average FSBS range from BGs range between 200 and 220 No episode of hypoglycemia No medication adverse effects reported by the patient. Patient educated on lifestyle modifications, dietary restrictions, signs and symptoms of hypoglycemia/hyperglycemia and importance of eating regular consistent meals. Stressed upon importance of checking blood glucose at home and bring blood glucose log to appointments. All questions, concerns answered and addressed. Encouraged to call office if persistent hypoglycemia/hyperglycemia on home glucose monitoring noted. Pt tried Metformin in the past, did not tolerate. Will initiate Jardiance today Associated Problem(s): Acute otitis externa of both ears Ofloxacin drops sent in X7 days Associated Problem(s): Anal pruritus Rx sent for hydrocortisone suppository Images from the original note were not included. Subjective Patient ID: Johnny Verma is a 53 y.o. male who presents for Follow-up, Ear Drainage, and NERVE PAIN. Ear Drainage Associated symptoms include ear discharge. Pertinent negatives include no abdominal pain, coughing, diarrhea, headaches, rash, rhinorrhea, sore throat or vomiting. Was on Novolin 70/30 60u BID but was D/C'd due to stable BG readings in December. States FSBS are in the 100's-120's but is curious about going back on insulin because he may or may not be drinking again. But reports he has been eating salads, following DM diet. But drinks sometimes Most recent labs: hemoglobin A1C 9.9% Average FSBS range from BGs range between 200 and 220 No episode of hypoglycemia No medication adverse effects reported by the patient. Patient educated on lifestyle modifications, dietary restrictions, signs and symptoms of hypoglycemia/hyperglycemia and importance of eating regular consistent meals. Stressed upon importance of checking blood glucose at home and bring blood glucose log to appointments. All questions, concerns answered and addressed. Encouraged to call office if persistent hypoglycemia/hyperglycemia on home glucose monitoring noted. Pt tried Metformin in the past, did not tolerate. Will initiate Jardiance today Review of Systems Constitutional: Negative for activity change, appetite change, chills, diaphoresis, fatigue, fever and unexpected weight change. HENT: Positive for ear discharge and ear pain. Negative for congestion, rhinorrhea, sinus pressure, sinus pain, sneezing, sore throat, trouble swallowing and voice change. Eyes: Negative for visual disturbance. Respiratory: Negative for cough, chest tightness, shortness of breath and wheezing. Cardiovascular: Negative for chest pain, palpitations and leg swelling. Gastrointestinal: Negative for abdominal distention, abdominal pain, blood in stool, constipation, diarrhea and vomiting. Anal itching Genitourinary: Negative for decreased urine volume, dysuria, flank pain, frequency, hematuria and urgency. Musculoskeletal: Negative for arthralgias, gait problem, joint swelling and myalgias. Skin: Negative for rash. Neurological: Negative for dizziness, tremors, syncope, weakness, light-headedness and headaches. Psychiatric/Behavioral: Negative for decreased concentration and suicidal ideas. The patient is not nervous/anxious. Hematological: Does not bruise/bleed easily. Endocrine: Negative for cold intolerance, heat intolerance, polydipsia, polyphagia and polyuria. Objective Physical Exam Vitals reviewed. Constitutional: Appearance: Normal appearance. HENT: Head: Normocephalic and atraumatic. Right Ear: Swelling and tenderness present. Left Ear: Swelling and tenderness present. Ears: Comments: External ear erythema, swelling, tenderness and drainage Nose: Nose normal. Mouth/Throat: Mouth: Mucous membranes are moist. Pharynx: Oropharynx is clear. Eyes: Pupils: Pupils are equal, round, and reactive to light. Cardiovascular: Rate and Rhythm: Normal rate and regular rhythm. Pulses: Normal pulses. Heart sounds: Normal heart sounds. Pulmonary: Effort: Pulmonary effort is normal. Breath sounds: Normal breath sounds. Abdominal: General: Abdomen is flat. Bowel sounds are normal. Palpations: Abdomen is soft. Musculoskeletal: General: Normal range of motion. Cervical back: Normal range of motion. Skin: General: Skin is warm and dry. Capillary Refill: Capillary refill takes less than 2 seconds. Neurological: General: No focal deficit present. Mental Status: He is alert and oriented to person, place, and time. Psychiatric: Mood and Affect: Mood normal. Behavior: Behavior normal. Assessment/Plan Problem List Items Addressed This Visit RESOLVED: Type 2 diabetes mellitus without complication, with long-term current use of insulin ([facility]) - Primary Anal pruritus Rx sent for hydrocortisone suppository Type II diabetes mellitus with complication ([facility]) Was on Novolin 70/30 60u BID but was D/C'd due to stable BG readings in December. States FSBS are in the 100's-120's but is curious about going back on insulin because he may or may not be drinking again. But reports he has been eating salads, following DM diet. But drinks sometimes Most recent labs: hemoglobin A1C 9.9% Average FSBS range from BGs range between 200 and 220 No episode of hypoglycemia No medication adverse effects reported by the patient. Patient educated on lifestyle modifications, dietary restrictions, signs and symptoms of hypoglycemia/hyperglycemia and importance of eating regular consistent meals. Stressed upon importance of checking blood glucose at home and bring blood glucose log to appointments. All questions, concerns answered and addressed. Encouraged to call office if persistent hypoglycemia/hyperglycemia on home glucose monitoring noted. Pt tried Metformin in the past, did not tolerate. Will initiate Jardiance today Relevant Medications empagliflozin (Jardiance) 10 MG glucose blood ([facility] Glucose Meter Test Strips) test strip Other Relevant Orders Ambulatory referral to Neurology Hemoglobin A1c Acute otitis externa of both ears Ofloxacin drops sent in X7 days documented in this encounter [facility] 04-07-2024 Instructions Ashanti López NP - 04/07/2024 9:00 AM EDT Education: Check blood sugars daily, notify if <70 or >200. Take medications (pills or insulin) as directed. Monitor for s/s of hypoglycemia (sweaty, dizziness, nausea, vomiting, or shakiness). Watch for increase in thirst, urination, or appetite. Inspect feet frequently monitoring for open wounds , and also recommend yearly eye exam. Pt should attempt to remain as physically active as chronic conditions allow, as well as trying to follow a diet low in carbohydrates, and simple sugars. documented in this encounter [facility] 04-03-2024 Hospital Discharge instructions Patient Education 04/03/2024 13:01:27 Prostatitis Prostatitis Prostatitis is swelling or inflammation of the prostate gland, also called the prostate. This gland is about 1.5 inches wide and 1 inch high, and it is involved in making semen. The prostate is located below a man's bladder, in front of the rectum. There are four types of prostatitis: Chronic prostatitis (CP), also called chronic pelvic pain syndrome (CPPS). This is the most common type of prostatitis. It is associated with increased muscle tone in the area between the hip bones (pelvic area), around the prostate. This type is also known as a pelvic floor disorder. Chronic bacterial prostatitis. This type usually results from an acute bacterial infection in the prostate gland that keeps coming back or has not been treated properly. The symptoms are less severe than those caused by acute bacterial prostatitis, which lasts a shorter time. Asymptomatic inflammatory prostatitis. This type does not have symptoms and does not need treatment. This is diagnosed when tests are done for other disorders of the urinary tract or reproductive tract. Acute bacterial prostatitis. This type starts quickly and results from an acute bacterial infection in the prostate gland. It is usually associated with a bladder infection, high fever, and chills. This is the least common type of prostatitis. What are the causes? Bacterial prostatitis is caused by an infection from bacteria. Chronic nonbacterial prostatitis may be caused by: Factors related to the nervous system. This system includes thebrain, spinal cord, and nerves. An autoimmune response. This happens when the body's disease-fighting system attacks healthy tissue in the body by mistake. Psychological factors. These have to do with how the mind works. The causes of the other types of prostatitis are usually not known. What are the signs or symptoms? Symptoms of this condition depend on the type of prostatitis you have. Acute bacterial prostatitis Symptoms may include: Pain or burning during urination. Frequent and sudden urges to urinate. Trouble starting to urinate. Fever. Chills. Pain in your muscles or joints, lower back, or lower abdomen. Other types of prostatitis Symptoms may include: Sudden urges to urinate, or urinating often. Trouble starting to urinate. Weak urine stream. Dribbling after urination. Discharge coming from the penis. Pain in the testicles, the penis, or the tip of the penis. Pain in the area in front of the rectum and below the scrotum (perineum). Pain when ejaculating. How is this diagnosed? This condition may be diagnosed based on: A physical and medical exam. A digital rectal exam. For this, the health care provider may use a finger to feel the prostate. A urine test to check for bacteria. A semen sample or blood tests. Ultrasound. Urodynamic tests to check how your body handles urine. Cystoscopy to look inside your bladder or inside the part of your body that drains urine from the bladder (urethra). How is this treated? Treatment for this condition depends on the type of prostatitis. Treatment may involve: Medicines to relieve pain or inflammation, or to help relax your muscles. Physical therapy. Heat therapy. Biofeedback. These techniques help you control certain body functions. Relaxation exercises. Antibiotic medicine, if your condition is caused by bacteria. Sitz baths. These warm water baths help to relax your pelvic floor muscles, which helps to relieve pressure on the prostate. Follow these instructions at home: Medicines Take oyde-rya-pnnyekf and prescription medicines only as told by your health care provider. If you were prescribed an antibiotic medicine, take it as told by your health care provider. Do not stop using the antibiotic even if you start to feel better. Managing pain and swelling Take sitz baths as directed by your health care provider. For a sitz bath, sit in warm water that is deep enough to cover your hips and buttocks. If directed, apply heat to the affected area as often as told by your health care provider. Use the heat source that your health care provider recommends, such as a moist heat pack or a heating pad. ?Place a towel between your skin and the heat source. ?Leave the heat on for 20 30 minutes. ?Remove the heat if your skin turns bright red. This is especially important if you are unable to feel pain, heat, or cold. You may have a greater risk of getting burned. General instructions Do exercises as told by your health care provider, if you were prescribed physical therapy, biofeedback, or relaxation exercises. Keep all follow-up visits as told by your health care provider. This is important. Where to find more information [employer] [place] of Diabetes and Digestive and Kidney Diseases: https://www.niddk.nih.gov Contact a health care provider if: Your symptoms get worse. You have a fever. Get help right away if: You have chills. You feel light-headed or feel like you may faint. You cannot urinate. You have blood or blood clots in your urine. Summary Prostatitis is swelling or inflammation of the prostate gland. Treatment for this condition depends on the type of prostatitis. Take ozuo-yke-emxswfq and prescription medicines only as told by your health care provider. Get help right away of you have chills, feel light-headed, feel like you may faint, cannot urinate, or have blood or blood clots in your urine. This information is not intended to replace advice given to you by your health care provider. Make sure you discuss any questions you have with your health care provider. Document Revised: 05/17/2023 Document Reviewed: 05/17/2023 [employer] Patient Education 2023 [employer]. Follow Up Care 04/01/2024 10:02:22 With:AMITA FERNANDEZ PA-C, URL Address: [address] [place] [id number] Business (1) When: only if needed [facility] 04-03-2024 Note Patient Education Infectious Disease Prostatitis Prostatitis is swelling or inflammation of the prostate gland, also called the prostate. This gland is about 1.5 inches wide and 1 inch high, and it is involved in making semen. The prostate is located below a man's bladder, in front of the rectum. There are four types of prostatitis: ? Chronic prostatitis (CP), also called chronic pelvic pain syndrome (CPPS). This is the most common type of prostatitis. It is associated with increased muscle tone in the area between the hip bones (pelvic area), around the prostate. This type is also known as a pelvic floor disorder. ? Chronic bacterial prostatitis. This type usually results from an acute bacterial infection in the prostate gland that keeps coming back or has not been treated properly. The symptoms are less severe than those caused by acute bacterial prostatitis, which lasts a shorter time. ? Asymptomatic inflammatory prostatitis. This type does not have symptoms and does not need treatment. This is diagnosed when tests are done for other disorders of the urinary tract or reproductive tract. ? Acute bacterial prostatitis. This type starts quickly and results from an acute bacterial infection in the prostate gland. It is usually associated with a bladder infection, high fever, and chills. This is the least common type of prostatitis. What are the causes? Bacterial prostatitis is caused by an infection from bacteria. Chronic nonbacterial prostatitis may be caused by: ? Factors related to the nervous system. This system includes thebrain, spinal cord, and nerves. ? An autoimmune response. This happens when the body's disease-fighting system attacks healthy tissue in the body by mistake. ? Psychological factors. These have to do with how the mind works. The causes of the other types of prostatitis are usually not known. What are the signs or symptoms? Symptoms of this condition depend on the type of prostatitis you have. Acute bacterial prostatitis Symptoms may include: ? Pain or burning during urination. ? Frequent and sudden urges to urinate. ? Trouble starting to urinate. ? Fever. ? Chills. ? Pain in your muscles or joints, lower back, or lower abdomen. Other types of prostatitis Symptoms may include: ? Sudden urges to urinate, or urinating often. ? Trouble starting to urinate. ? Weak urine stream. ? Dribbling after urination. ? Discharge coming from the penis. ? Pain in the testicles, the penis, or the tip of the penis. ? Pain in the area in front of the rectum and below the scrotum (perineum). ? Pain when ejaculating. How is this diagnosed? This condition may be diagnosed based on: ? A physical and medical exam. ? A digital rectal exam. For this, the health care provider may use a finger to feel the prostate. ? A urine test to check for bacteria. ? A semen sample or blood tests. ? Ultrasound. ? Urodynamic tests to check how your body handles urine. ? Cystoscopy to look inside your bladder or inside the part of your body that drains urine from the bladder (urethra). How is this treated? Treatment for this condition depends on the type of prostatitis. Treatment may involve: ? Medicines to relieve pain or inflammation, or to help relax your muscles. ? Physical therapy. ? Heat therapy. ? Biofeedback. These techniques help you control certain body functions. ? Relaxation exercises. ? Antibiotic medicine, if your condition is caused by bacteria. ? Sitz baths. These warm water baths help to relax your pelvic floor muscles, which helps to relieve pressure on the prostate. Follow these instructions at home: Medicines ? Take [id number] and prescription medicines only as told by your health care provider. ? If you were prescribed an antibiotic medicine, take it as told by your health care provider. Do not stop using the antibiotic even if you start to feel better. Managing pain and swelling ? Take sitz baths as directed by your health care provider. For a sitz bath, sit in warm water that is deep enough to cover your hips and buttocks. ? If directed, apply heat to the affected area as often as told by your health care provider. Use the heat source that your health care provider recommends, such as a moist heat pack or a heating pad. ? Place a towel between your skin and the heat source. ? Leave the heat on for 20?30 minutes. ? Remove the heat if your skin turns bright red. This is especially important if you are unable to feel pain, heat, or cold. You may have a greater risk of getting burned. General instructions ? Do exercises as told by your health care provider, if you were prescribed physical therapy, biofeedback, or relaxation exercises. ? Keep all follow-up visits as told by your health care provider. This is important. Where to find more information ? [employer] [place] [employer] a (more content not included)... [facility] 03-06-2024 History of Present illness Narrative Associated Problem(s): Hyperlipidemia (CMS/[facility]) Not on any medication therapy. Triglycerides are slightly elevated. Continue to monitor closely with psychiatric medications Associated Problem(s): Chronic obstructive pulmonary disease (CMS/HCC) Worsened from baseline as he is smoking again. Reports cough and intermittent SOB on exertion with warmer days and humidity. Patient counseled on smoking cessation. Associated Problem(s): Type 2 diabetes mellitus without complication, with long-term current use of insulin (CMS/HCC) Currently not taking insulin Most recent A1C is 6.7% without medications Reports he is inconsistently taking old prescription of Glipizide if he eats poorly. Stressed the importance of adhering to medication regimen and not changing medications without consulting provider first. Images from the original note were not included. Subjective Patient ID: Johnny Verma is a 53 y.o. male who presents for Blood Sugar Problem (Elevated FBS's in the 250's, Pt recently started diet back up and FBS's have been 100 to 120). HPI DMII: Was on Novolin 70/30 60u BID but was D/C'd due to stable BG readings in December. States FSBS are in the 100's-120's but is curious about going back on insulin because he may or may not be drinking again. But reports he has been eating salads, following DM diet. But drinks sometimes Will recheck A1C Component Ref Range & Units 2 mo ago 5 mo ago 8 mo ago GLYCOHEMOGLOBIN A1C 4.5 - 6.2 % 6.7 High 8.6 High CM 7.9 High CM Comment: ADA RECOMMENDED LIMIT 4.0 - 6.0 ADA THERAPEUTIC TARGET < 7.0 ACTION SUGGESTED > 7.0 ESTIMATED AVERAGE GLUCOSE mg/dL 146 200 180 Resulting Agency [facility] Most recent labs: hemoglobin A1C Average FSBS range from BGs range between 100 and 120's No episode of hypoglycemia No medication adverse effects reported by the patient. Patient educated on lifestyle modifications, dietary restrictions, signs and symptoms of hypoglycemia/hyperglycemia and importance of eating regular consistent meals. Stressed upon importance of checking blood glucose at home and bring blood glucose log to appointments. All questions, concerns answered and addressed. Encouraged to call office if persistent hypoglycemia/hyperglycemia on home glucose monitoring noted. Diabetic foot exam: Left: Reflexes 2+ Vibratory sensation normal Proprioception normal Sharp/dull discrimination normal Filament test present Right: Reflexes 2+ Vibratory sensation normal Proprioception normal Sharp/dull discrimination normal Filament test present HLD: Component Ref Range & Units 2 mo ago (01/01/24) 2 mo ago (01/01/24) 2 mo ago (01/01/24) 8 mo ago (06/29/23) 8 mo ago (06/29/23) 8 mo ago (06/29/23) 8 mo ago (06/29/23) TRIGLYCERIDES <=150 mg/dL 168 High 139 R 25.8 R 301 High 141 R 140.36 R 24.8 R CHOLESTEROL <=200 mg/dL 128 3.9 R 0.2 R 152 3.9 R 0.6 High R HDL CHOLESTEROL 40 - 60 mg/dL 36 Low 14.2 R 5.9 R 43 CM 15.4 R 5.9 R Comment: > or =60 mg/dl - LOW CARDIOVASCULAR RISK <40 mg/dl - HIGH CARDIOVASCULAR RISK LDL CHOLESTEROL CALCULATED mg/dL 59.0 151 High R 2.5 R 49.0 CM 142 High R 2.4 R Comment: <100 mg/dl OPTIMAL 100-129 mg/dl NEAR OR ABOVE OPTIMAL 130-159 mg/dl BORDERLINE HIGH 160-189 mg/dl HIGH >190 mg/dl VERY HIGH VLDL CHOLESTEROL mg/dL 33.6 0.6 R 0.9 High R 60.2 0.4 R 0.8 R CHOL HDL RATIO 3.6 25 R 0.02 R 3.5 CM 21 R 0.06 High R Comment: 3.3 - 4.4 LOW RISK 4.4 - 7.1 AVERAGE RISK 7.1 - 11.0 MODERATE RISK >11.0 HIGH RISK ALANINE AMINOTRANSFERASE 32 R 31 R ALKALINE PHOSPHATASE 147 High R 141 High R TOTAL PROTEIN 7.7 R 7.8 R ALBUMIN LEVEL 3.4 R 3.4 R ALBUMIN GLOBULIN RATIO 0.8 0.8 Resulting Agency [facility] COPD: Albuterol Feels Symptoms are not well managed currenlty bc he is smoking again. Is having erections inappropriately-has had this happen in the past. Deferred to psych. Review of Systems Constitutional: Negative for activity change, appetite change, chills, diaphoresis, fatigue, fever and unexpected weight change. HENT: Negative for congestion, ear pain, rhinorrhea, sinus pressure, sinus pain, sneezing, sore throat, trouble swallowing and voice change. Eyes: Negative for visual disturbance. Respiratory: Positive for cough and shortness of breath. Negative for chest tightness and wheezing. Worse in the heat and humidity, not constant. Consistent with COPD and smoking; Cardiovascular: Negative for chest pain, palpitations and leg swelling. Gastrointestinal: Negative for abdominal distention, abdominal pain, blood in stool, constipation, diarrhea and vomiting. Genitourinary: Negative for decreased urine volume, dysuria, flank pain, frequency, hematuria and urgency. Erections frequently Musculoskeletal: Negative for arthralgias, gait problem, joint swelling and myalgias. Skin: Negative for rash. Neurological: Negative for dizziness, tremors, syncope, weakness, light-headedness and headaches. Psychiatric/Behavioral: Negative for decreased concentration and suicidal ideas. The patient is not nervous/anxious. Hematological: Does not bruise/bleed easily. Endocrine: Negative for cold intolerance, heat intolerance, polydipsia, polyphagia and polyuria. Objective Physical Exam Vitals reviewed. Constitutional: Appearance: Normal appearance. HENT: Head: Normocephalic and atraumatic. Right Ear: Tympanic membrane normal. Left Ear: Tympanic membrane normal. Nose: Nose normal. Mouth/Throat: Mouth: Mucous membranes are moist. Pharynx: Oropharynx is clear. Eyes: Pupils: Pupils are equal, round, and reactive to light. Cardiovascular: Rate and Rhythm: Normal rate and regular rhythm. Pulses: Normal pulses. Heart sounds: Normal heart sounds. Pulmonary: Effort: Pulmonary effort is normal. Breath sounds: Normal breath sounds. Abdominal: General: Abdomen is flat. Bowel sounds are normal. Palpations: Abdomen is soft. Musculoskeletal: General: Normal range of motion. Cervical back: Normal range of motion. Skin: General: Skin is warm and dry. Capillary Refill: Capillary refill takes less than 2 seconds. Neurological: General: No focal deficit present. Mental Status: He is alert and oriented to person, place, and time. Psychiatric: Mood and Affect: Mood normal. Behavior: Behavior normal. Assessment/Plan Problem List Items Addressed This Visit Type 2 diabetes mellitus without complication, with long-term current use of insulin ([facility]) Currently not taking insulin Most recent A1C is 6.7% without medications Reports he is inconsistently taking old prescription of Glipizide if he eats poorly. Stressed the importance of adhering to medication regimen and not changing medications without consulting provider first. Relevant Orders Hemoglobin A1c Chronic obstructive pulmonary disease (CMS/HCC) Worsened from baseline as he is smoking again. Reports cough and intermittent SOB on exertion with warmer days and humidity. Patient counseled on smoking cessation. Hyperlipidemia (CMS/HCC) - Primary Not on any medication therapy. Triglycerides are slightly elevated. Continue to monitor closely with psychiatric medications documented in this encounter [facility] 03-06-2024 Instructions Ashanti López NP - 03/06/2024 9:00 AM EDT Call psych and get into to see them DAJUAN! *Do NOT start, change, or stop medications without speaking to your medical provider's first!!! Have A1C drawn. I will call you if we need to change your current regimen. Education: Check blood sugars daily, notify if <70 or >200. Take medications (pills or insulin) as directed. Monitor for s/s of hypoglycemia (sweaty, dizziness, nausea, vomiting, or shakiness). Watch for increase in thirst, urination, or appetite. Inspect feet frequently monitoring for open wounds , and also recommend yearly eye exam. Pt should attempt to remain as physically active as chronic conditions allow, as well as trying to follow a diet low in carbohydrates, and simple sugars. documented in this encounter [facility] 11-15-2022 Hospital Discharge instructions Patient Education 11/15/2022 15:31:04 Erectile Dysfunction [...] Follow these instructions at home: Medicines Take mhab-bmg-wupdtap and prescription medicines only as told by [...] provider. Document Revised: 09/28/2021 Document Reviewed: 09/28/2021 [employer] Patient Education 2022 [employer]. Follow Up Care 10/31/2022 09:47:32 With:AMITA FERNANDEZ PA-C, URL Address: [address] [place] [address] When: Unknown [facility] 01-17-2022 Hospital Discharge instructions Patient Education 01/17/2022 11:36:40 Erectile Dysfunction [...] Follow these instructions at home: Medicines Take mkkd-qjg-hmstikh and prescription medicines only as told by [...] 06/29/2001 Document Revised: 06/14/2018 Document Reviewed: 07/18/2017 [employer] Patient Education 2020 [employer]. Follow Up Care 11/15/2021 10:33:52 With:Erickson Brooks MD, Tee Brush [facility] Address: [facility] [address] [place] [address]- [phone] When:02/28/2022 [facility] 11-15-2021 Hospital Discharge instructions Patient Education 11/15/2021 10:23:37 Erectile Dysfunction [...] Follow these instructions at home: Medicines Take qpov-tro-sqkenkp and prescription medicines only as told by [...] 06/29/2001 Document Revised: 06/14/2018 Document Reviewed: 07/18/2017 [employer] Patient Education 2020 [employer]. Follow Up Care 08/23/2021 10:12:56 With:Erickson Brooks MD, Tee Brush, [facility] Address: [facility] [address], [place] [address]- When:01/15/2022 [facility] Evaluation + Plan note Future Appointments Appointment Date:01/17/2022 09:45:00 AM Scheduled Provider:Tee Almendarez Jr., MD Location:[facility] Appointment Type:URO Office Visit Diagnostic Tests PendingTestosterone Level Total 11/15/21 [facility] Evaluation + Plan note Future Appointments Appointment Date:03/07/2022 08:45:00 AM Scheduled Provider:Tee Almendarez Jr., MD Location:[facility] Appointment Type:URO Office Visit [facility] Evaluation + Plan note Future Appointments Appointment Date:11/20/2023 09:00:00 AM Scheduled Provider:AMITA FERNANDEZ PA-C Location:[facility] Appointment Type:URO Office Visit [facility] Evaluation note Diagnosis Type II diabetes mellitus with complication (CMS/HCC)- Primary Type II or unspecified type diabetes mellitus with unspecified complication, not stated as uncontrolled Diabetes mellitus due to underlying condition with diabetic 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, unspecified whether correction insulin use (CMS/[facility])- Primary Onychomycosis Dermatophytosis of nail Toe pain, bilateral Venous insufficiency Unspecified venous (peripheral) insufficiency documented in this encounter [facility] HealthcareEvaluation note* Diagnosis Diabetes mellitus due to underlying condition with diabetic 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, unspecified whether correction insulin use ([facility])- Primary Venous insufficiency Unspecified venous (peripheral) insufficiency Pain due to onychomycosis of toenails of both feet documented in this encounter [facility] HealthcareEvaluation note* Diagnosis Type II diabetes mellitus with complication ([facility])- Primary Type II or unspecified type diabetes mellitus with unspecified complication, not stated as uncontrolled documented in this encounter [facility] HealthcareEvaluation note* Diagnosis Obesity, morbid ([facility])- Primary Morbid obesity Type 2 diabetes mellitus without complication, with long-term current use of insulin ([facility] Schizophrenia, unspecified type ([facility]) Chronic obstructive pulmonary disease, unspecified COPD type ([facility]) Hyperlipidemia, unspecified hyperlipidemia type ([facility]) Encounter for screening for malignant neoplasm of colon Chronic obstructive pulmonary disease, unspecified COPD type ([facility])- Primary Type 2 diabetes mellitus without complication, with long-term current use of insulin ([facility]) Tobacco abuse Tobacco use disorder Undifferentiated schizophrenia ([facility]) Type 2 diabetes mellitus without complication, with long-term current use of insulin ([facility])- Primary Thoracolumbar back pain Hidradenitis suppurativa of left axilla Type 2 diabetes mellitus without complication, with long-term current use of insulin ([facility])- Primary Obesity, morbid ([facility]) Morbid obesity Undifferentiated schizophrenia ([facility]) Hyperlipidemia, unspecified hyperlipidemia type ([facility]) Thoracolumbar back pain Hyperlipidemia, unspecified hyperlipidemia type ([facility])- Primary Chronic obstructive pulmonary disease, unspecified COPD type ([facility]) Type 2 diabetes mellitus without complication, with long-term current use of insulin ([facility]) Type 2 diabetes mellitus without complication, with long-term current use of insulin ([facility])- Primary Type II diabetes mellitus with complication ([facility]) Type II or unspecified type diabetes mellitus with unspecified complication, not stated as uncontrolled Anal pruritus Pruritus ani Acute otitis externa of both ears, unspecified type Type II diabetes mellitus with complication ([facility])- Primary Type II or unspecified type diabetes mellitus with unspecified complication, not stated as uncontrolled documented in this encounter [facility] HealthcareEvaluation note* Diagnosis Obesity, morbid ([facility])- Primary Morbid obesity Type 2 diabetes mellitus without complication, with long-term current use of insulin ([facility]) Schizophrenia, unspecified type ([facility]) Chronic obstructive pulmonary disease, unspecified COPD type ([facility]) Hyperlipidemia, unspecified hyperlipidemia type ([facility]) Encounter for screening for malignant neoplasm of colon Chronic obstructive pulmonary disease, unspecified COPD type ([facility])- Primary Type 2 diabetes mellitus without complication, with long-term current use of insulin ([facility]) Tobacco abuse Tobacco use disorder Undifferentiated schizophrenia ([facility]) Type 2 diabetes mellitus without complication, with long-term current use of insulin ([facility])- Primary Thoracolumbar back pain Hidradenitis suppurativa of left axilla Type 2 diabetes mellitus without complication, with long-term current use of insulin ([facility])- Primary Obesity, morbid ([facility]) Morbid obesity Undifferentiated schizophrenia ([facility]) Hyperlipidemia, unspecified hyperlipidemia type ([facility]) Thoracolumbar back pain Hyperlipidemia, unspecified hyperlipidemia type ([facility])- Primary Chronic obstructive pulmonary disease, unspecified COPD type ([facility]) Type 2 diabetes mellitus without complication, with long-term current use of insulin ([facility]) Type 2 diabetes mellitus without complication, with long-term current use of insulin ([facility])- Primary Type II diabetes mellitus with complication ([facility]) Type II or unspecified type diabetes mellitus with unspecified complication, not stated as uncontrolled Anal pruritus Pruritus ani Acute otitis externa of both ears, unspecified type Type II diabetes mellitus with complication ([facility]) Type II or unspecified type diabetes mellitus with unspecified complication, not stated as uncontrolled documented in this encounter [facility]* Diagnosis Obesity, morbid ([facility])- Primary Morbid obesity Type 2 diabetes mellitus without complication, with long-term current use of insulin ([facility]) Schizophrenia, unspecified type ([facility]) Chronic obstructive pulmonary disease, unspecified COPD type ([facility]) Hyperlipidemia, unspecified hyperlipidemia type ([facility]) Encounter for screening for malignant neoplasm of colon Chronic obstructive pulmonary disease, unspecified COPD type ([facility])- Primary Type 2 diabetes mellitus without complication, with long-term current use of insulin ([facility]) Tobacco abuse Tobacco use disorder Undifferentiated schizophrenia ([facility]) Type 2 diabetes mellitus without complication, with long-term current use of insulin ([facility])- Primary Thoracolumbar back pain Hidradenitis suppurativa of left axilla Type 2 diabetes mellitus without complication, with long-term current use of insulin ([facility])- Primary Obesity, morbid ([facility]) Morbid obesity Undifferentiated schizophrenia ([facility]) Hyperlipidemia, unspecified hyperlipidemia type ([facility]) Thoracolumbar back pain Hyperlipidemia, unspecified hyperlipidemia type ([facility])- Primary Chronic obstructive pulmonary disease, unspecified COPD type ([facility]) Type 2 diabetes mellitus without complication, with long-term current use of insulin ([facility]) Type 2 diabetes mellitus without complication, with long-term current use of insulin ([facility])- Primary Type II diabetes mellitus with complication ([facility]) Type II or unspecified type diabetes mellitus with unspecified complication, not stated as uncontrolled Anal pruritus Pruritus ani Acute otitis externa of both ears, unspecified type Type II diabetes mellitus with complication ([facility])- Primary Type II or unspecified type diabetes mellitus with unspecified complication, not stated as uncontrolled documented in this encounter [facility] HealthcareEvaluation note* Diagnosis Hyperlipidemia, unspecified hyperlipidemia type ([facility] Primary Chronic obstructive pulmonary disease, unspecified COPD type ([facility]) Type 2 diabetes mellitus without complication, with long-term current use of insulin ([facility]) documented in this encounter [facility] HealthcareEvaluation note* Diagnosis Obesity, morbid ([facility])- Primary Morbid obesity Type 2 diabetes mellitus without complication, with long-term current use of insulin ([facility]) Schizophrenia, unspecified type ([facility]) Chronic obstructive pulmonary disease, unspecified COPD type ([facility]) Hyperlipidemia, unspecified hyperlipidemia type ([facility]) Encounter for screening for malignant neoplasm of colon Chronic obstructive pulmonary disease, unspecified COPD type ([facility])- Primary Type 2 diabetes mellitus without complication, with long-term current use of insulin ([facility] Tobacco abuse Tobacco use disorder Undifferentiated schizophrenia ([facility]) Type 2 diabetes mellitus without complication, with long-term current use of insulin ([facility])- Primary Thoracolumbar back pain Hidradenitis suppurativa of left axilla Type 2 diabetes mellitus without complication, with long-term current use of insulin ([facility])- Primary Obesity, morbid ([facility]) Morbid obesity Undifferentiated schizophrenia ([facility]) Hyperlipidemia, unspecified hyperlipidemia type ([facility]) Thoracolumbar back pain Hyperlipidemia, unspecified hyperlipidemia type ([facility])- Primary Chronic obstructive pulmonary disease, unspecified COPD type ([facility]) Type 2 diabetes mellitus without complication, with long-term current use of insulin ([facility]) Type 2 diabetes mellitus without complication, with long-term current use of insulin ([facility])- Primary Type II diabetes mellitus with complication ([facility]) Type II or unspecified type diabetes mellitus with unspecified complication, not stated as uncontrolled Anal pruritus Pruritus ani Acute otitis externa of both ears, unspecified type Type 2 diabetes mellitus without complication, with long-term current use of insulin ([facility]) Type II diabetes mellitus with complication ([facility]) Type II or unspecified type diabetes mellitus with unspecified complication, not stated as uncontrolled [facility] Diagnosis Type 2 diabetes mellitus without complication, with long-term current use of insulin ([facility])- Primary Type II diabetes mellitus with complication ([facility]) Type II or unspecified type diabetes mellitus with unspecified complication, not stated as uncontrolled Anal pruritus Pruritus ani Acute otitis externa of both ears, unspecified type documented in this encounter [facility]* Diagnosis Acute swimmer's ear of both sides- Primary Anal pruritus Pruritus ani documented in this encounter [facility]* Diagnosis Obesity, morbid ([facility])- Primary Morbid obesity Type 2 diabetes mellitus without complication, with long-term current use of insulin ([facility]) Schizophrenia, unspecified type ([facility]) Chronic obstructive pulmonary disease, unspecified COPD type ([facility]) Hyperlipidemia, unspecified hyperlipidemia type ([facility]) Encounter for screening for malignant neoplasm of colon Chronic obstructive pulmonary disease, unspecified COPD type ([facility])- Primary Type 2 diabetes mellitus without complication, with long-term current use of insulin ([facility]) Tobacco abuse Tobacco use disorder Undifferentiated schizophrenia ([facility]) Type 2 diabetes mellitus without complication, with long-term current use of insulin ([facility] Primary Thoracolumbar back pain Hidradenitis suppurativa of left axilla Type 2 diabetes mellitus without complication, with long-term current use of insulin ([facility])- Primary Obesity, morbid ([facility]) Morbid obesity Undifferentiated schizophrenia ([facility]) Hyperlipidemia, unspecified hyperlipidemia type ([facility]) Thoracolumbar back pain Hyperlipidemia, unspecified hyperlipidemia type ([facility])- Primary Chronic obstructive pulmonary disease, unspecified COPD type ([facility]) Type 2 diabetes mellitus without complication, with long-term current use of insulin ([facility]) Type 2 diabetes mellitus without complication, with long-term current use of insulin ([facility])- Primary Type II diabetes mellitus with complication ([facility]) Type II or unspecified type diabetes mellitus with unspecified complication, not stated as uncontrolled Anal pruritus Pruritus ani Acute otitis externa of both ears, unspecified type Type 2 diabetes mellitus without complication, with long-term current use of insulin ([facility] Type II diabetes mellitus with complication ([facility]) Type II or unspecified type diabetes mellitus with unspecified complication, not stated as uncontrolled Type II diabetes mellitus with complication ([facility]) Type II or unspecified type diabetes mellitus with unspecified complication, not stated as uncontrolled documented in this encounter [facility] HealthcareEvaluation note* Diagnosis Obesity, morbid ([facility])- Primary Morbid obesity Type 2 diabetes mellitus without complication, with long-term current use of insulin ([facility]) Schizophrenia, unspecified type ([facility]) Chronic obstructive pulmonary disease, unspecified COPD type ([facility]) Hyperlipidemia, unspecified hyperlipidemia type ([facility]) Encounter for screening for malignant neoplasm of colon Chronic obstructive pulmonary disease, unspecified COPD type ([facility])- Primary Type 2 diabetes mellitus without complication, with long-term current use of insulin ([facility] Tobacco abuse Tobacco use disorder Undifferentiated schizophrenia ([facility]) Type 2 diabetes mellitus without complication, with long-term current use of insulin ([facility])- Primary Thoracolumbar back pain Hidradenitis suppurativa of left axilla Type 2 diabetes mellitus without complication, with long-term current use of insulin ([facility])- Primary Obesity, morbid ([facility]) Morbid obesity Undifferentiated schizophrenia ([facility]) Hyperlipidemia, unspecified hyperlipidemia type ([facility]) Thoracolumbar back pain Hyperlipidemia, unspecified hyperlipidemia type ([facility])- Primary Chronic obstructive pulmonary disease, unspecified COPD type ([facility]) Type 2 diabetes mellitus without complication, with long-term current use of insulin ([facility]) Type 2 diabetes mellitus without complication, with long-term current use of insulin ([facility])- Primary Type II diabetes mellitus with complication ([facility]) Type II or unspecified type diabetes mellitus with unspecified complication, not stated as uncontrolled Anal pruritus Pruritus ani Acute otitis externa of both ears, unspecified type Type 2 diabetes mellitus without complication, with long-term current use of insulin ([facility]) Type II diabetes mellitus with complication (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)- Primary Pain due to onychomycosis of toenails of both feet Venous insufficiency Unspecified venous (peripheral) insufficiency documented in this encounter [facility] HealthcareEvaluation note* Diagnosis Obesity, morbid ([facility])- Primary Morbid obesity Type 2 diabetes mellitus without complication, with long-term current use of insulin ([facility]) Schizophrenia, unspecified type ([facility]) Chronic obstructive pulmonary disease, unspecified COPD type ([facility]) Hyperlipidemia, unspecified hyperlipidemia type ([facility]) Encounter for screening for malignant neoplasm of colon Chronic obstructive pulmonary disease, unspecified COPD type ([facility])- Primary Type 2 diabetes mellitus without complication, with long-term current use of insulin ([facility] Tobacco abuse Tobacco use disorder Undifferentiated schizophrenia ([facility]) Type 2 diabetes mellitus without complication, with long-term current use of insulin ([facility])- Primary Thoracolumbar back pain Hidradenitis suppurativa of left axilla Type 2 diabetes mellitus without complication, with long-term current use of insulin ([facility])- Primary Obesity, morbid ([facility]) Morbid obesity Undifferentiated schizophrenia ([facility]) Hyperlipidemia, unspecified hyperlipidemia type ([facility]) Thoracolumbar back pain Hyperlipidemia, unspecified hyperlipidemia type ([facility])- Primary Chronic obstructive pulmonary disease, unspecified COPD type ([facility]) Type 2 diabetes mellitus without complication, with long-term current use of insulin ([facility]) Type 2 diabetes mellitus without complication, with long-term current use of insulin ([facility])- Primary Type II diabetes mellitus with complication ([facility]) Type II or unspecified type diabetes mellitus with unspecified complication, not stated as uncontrolled Anal pruritus Pruritus ani Acute otitis externa of both ears, unspecified type Type 2 diabetes mellitus without complication, with long-term current use of insulin ([facility] Type II diabetes mellitus with complication ([facility]) Type II or unspecified type diabetes mellitus with unspecified complication, not stated as uncontrolled Type II diabetes mellitus with complication ([facility])- Primary Type II or unspecified type diabetes mellitus with unspecified complication, not stated as uncontrolled Vitamin D deficiency Insulin long-term use ([facility]) Encounter for long-term (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 of insulin Encounter for dietary consultation Class 3 severe obesity due to excess calories with serious comorbidity and body mass index (BMI) of 40.0 to 44.9 in adult ([facility]) documented in this encounter [facility] HealthcareEvaluation note* Diagnosis Obesity, morbid ([facility])- Primary Morbid obesity Type 2 diabetes mellitus without complication, with long-term current use of insulin ([facility]) Schizophrenia, unspecified type ([facility]) Chronic obstructive pulmonary disease, unspecified COPD type ([facility] Hyperlipidemia, unspecified hyperlipidemia type ([facility]) Encounter for screening for malignant neoplasm of colon Chronic obstructive pulmonary disease, unspecified COPD type ([facility])- Primary Type 2 diabetes mellitus without complication, with long-term current use of insulin ([facility] Tobacco abuse Tobacco use disorder Undifferentiated schizophrenia ([facility]) Type 2 diabetes mellitus without complication, with long-term current use of insulin ([facility])- Primary Thoracolumbar back pain Hidradenitis suppurativa of left axilla Type 2 diabetes mellitus without complication, with long-term current use of insulin ([facility])- Primary Obesity, morbid ([facility]) Morbid obesity Undifferentiated schizophrenia ([facility]) Hyperlipidemia, unspecified hyperlipidemia type ([facility]) Thoracolumbar back pain Hyperlipidemia, unspecified hyperlipidemia type ([facility])- Primary Chronic obstructive pulmonary disease, unspecified COPD type ([facility]) Type 2 diabetes mellitus without complication, with long-term current use of insulin ([facility] Type 2 diabetes mellitus without complication, with long-term current use of insulin ([facility])- Primary Type II diabetes mellitus with complication ([facility]) Type II or unspecified type diabetes mellitus with unspecified complication, not stated as uncontrolled Anal pruritus Pruritus ani Acute otitis externa of both ears, unspecified type Type 2 diabetes mellitus without complication, with long-term current use of insulin (CMS/HCC) Type II diabetes mellitus with complication (CMS/HCC) Type II or unspecified type diabetes mellitus with unspecified complication, not stated as uncontrolled Type II diabetes mellitus with complication (CMS/HCC)- Primary Type II or unspecified type diabetes mellitus with unspecified complication, not stated as uncontrolled Chronic obstructive pulmonary disease, unspecified COPD type (CMS/HCC) [facility] Narrative No data available for this section [facility] Hospital Discharge instructions No data available for this section [facility] InstructionsNot on filedocumented in this encounter [facility] No data available for this section [facility] reason for referral (narrative)* Consultation (Routine) - Authorized Specialty Diagnoses / Procedures Referred By Vazquez silva Referred To Contact Neurology Diagnoses Type II diabetes mellitus with complication (CMS/HCC) Procedures DC OFFICE/OUTPATIENT NEW HIGH MDM 60 MINUTES Ashanti López NP [address] [place] [address] Ministerio Ortiz MD [address] [place] [id number] Referral ID Status Reason Start Date Expiration Date Visits Requested Visits Authorized [id number] Authorized Specialty Services Required 04/07/2024 10/04/2024 1 1 [facility] Summary Purpose Family History No Family History Records FoundNo Family History Records FoundNo Family History Records FoundNo Family History Records Found No data available for this section No data available for this section No Family History Records FoundNo Family History [...] section and content) DATE CREATED AUTHOR 01/09/2018 [facility] DATE CREATED AUTHOR AUTHOR'S ORGANIZ ATION 05/06/2021 [facility] DATE CREATED AUTHOR AUTHOR'S ORGANIZ ATION 11/27/2022 [facility] DATE CREATED AUTHOR AUTHOR'S ORGANIZ ATION 08/06/2023 [facility] EPIC DATE CREATED AUTHOR AUTHOR'S ORGANIZ ATION 05/05/2024 [facility] DATE CREATED AUTHOR AUTHOR'S ORGANIZ ATION 08/21/2024 [facility] EPIC DATE CREATED AUTHOR AUTHOR'S ORGANIZ ATION 10/08/2024 [facility] Care Team (unrecognized sect ion and content) Subscription Clerk Relationship Specialty Start Date End Date Horace Stiles MD [address] [place] [phone] PCP - General Family Medicine 02/21/24 Ashanti López NP [address] [place] [phone] Nurse Practitioner Family Medicine 02/21/24 Subscription Clerk Relationship Specialty Start Date End Date Horace Stiles MD [address] [place] [phone] PCP - General Family Medicine 02/21/24 Ashanti López NP [address] [place] [phone] Nurse Practitioner Family Medicine 02/21/24 Subscription Clerk Relationship Specialty Start Date End Date Horace Stiles MD [address] [place] [phone] PCP - General Family Medicine 02/21/24 Ashanti López NP [address] [place] [address] Nurse Practitioner Family Medicine 02/21/24 Subscription Clerk Relationship Specialty Start Date End Date Horace Stiles MD [address] [place] [phone] PCP - General Family Medicine 02/21/24 Ashanti López NP [address] [place] [address] Nurse Practitioner Family Medicine 02/21/24 Subscription Clerk Relationship Specialty Start Date End Date Horace Stiles MD [address] [place] [phone] PCP - General Family Medicine 05/15/24 Ashanti Lópze NP [address] [place] [address] Nurse Practitioner Family Medicine 02/21/24 Subscription Clerk Relationship Specialty Start Date End Date Horace Stiles MD [address] [place] [phone] PCP - General Family Medicine 05/15/24 Ashanti López NP [address] [place] [address] Nurse Practitioner Family Medicine 02/21/24 Subscription Clerk Relationship Specialty Start Date End Date Horace Stiles MD [address] [place] [address] PCP - General Family Medicine 05/15/24 Ashanti López NP [address] [place] [address] Nurse Practitioner Family Medicine 02/21/24 Subscription Clerk Relationship Specialty Start Date End Date Horace Stiles MD [address] [place] [phone] PCP - General Family Medicine 05/15/24 Ashanti López NP [address] [place] [address] Nurse Practitioner Family Medicine 02/21/24 Subscription Clerk Relationship Specialty Start Date End Date Horace Stiles MD [address] [place] [phone] PCP - General Family Medicine 02/21/24 Ashanti López NP [address] [place] [address] Nurse Practitioner Family Medicine 02/21/24 Subscription Clerk Relationship Specialty Start Date End Date Horace Stiles MD [address] [place] [phone] PCP - General Family Medicine 02/21/24 Ashanti López NP [address] [place] [address] Nurse Practitioner Family Medicine 02/21/24 Subscription Clerk Relationship Specialty Start Date End Date Horace Stiles MD [address] [place] [phone] PCP - General Family Medicine 02/21/24 Ashanti López NP [address] [place] [phone] Nurse Practitioner Family Medicine 02/21/24 Subscription Clerk Relationship Specialty Start Date End Date Horace Stiles MD [address] [place] [address] PCP - General Family Medicine 05/15/24 Ashanti López NP [address] [place] [address] Nurse Practitioner Family Medicine 02/21/24 Subscription Clerk Relationship Specialty Start Date End Date Horace Stiles MD [address] [place] [address] PCP - General Family Medicine 02/21/24 Ashanti López NP [address] [place] [address] Nurse Practitioner Family Medicine 02/21/24 Subscription Clerk Relationship Specialty Start Date End Date Horace Stiles MD [address] [place] [address] PCP - General Family Medicine 02/21/24 Ashanti López NP [address] [place] [address] Nurse Practitioner Family Medicine 02/21/24 Subscription Clerk Relationship Specialty Start Date End Date Horace Stiles MD [address] [place] [address] PCP - General Family Medicine 02/21/24 Ashanti López NP [address] [place] [address] Nurse Practitioner Family Medicine 02/21/24 Subscription Clerk Relationship Specialty Start Date End Date Horace Stiles MD [address] [place] [phone] PCP - General Family Medicine 05/15/24 Ashanti López NP [address] [place] [address] Nurse Practitioner Family Medicine 02/21/24 Subscription Clerk Relationship Specialty Start Date End Date Horace Stiles MD [address] [place] [address] PCP - General Family Medicine 05/15/24 Ashanti López NP [address] [place] [address] Nurse Practitioner Family Medicine 02/21/24 Subscription Clerk Relationship Specialty Start Date End Date Horace Stiles MD [address] [place] [address] PCP - General Family Medicine 05/15/24 Ashanti López NP [address] [place] [address] Nurse Practitioner Family Medicine 02/21/24 Subscription Clerk Relationship Specialty Start Date End Date Horace Stiles MD [address] [place] [address] PCP - General Family Medicine 05/15/24 Ashanti López NP [address] [place] [address] Nurse Practitioner Family Medicine 02/21/24 Subscription Clerk Relationship Specialty Start Date End Date Horace Stiles MD [address] [place] [phone] PCP - General Family Medicine 05/15/24 Ashanti López NP [address] [place] [address] Nurse Practitioner Family Medicine 02/21/24 Subscription Clerk Relationship Specialty Start Date End Date Horace Stiles MD [address] [place] [address] PCP - General Family Medicine 05/15/24 Ashanti López NP [address] [place] [address] Nurse Practitioner Family Medicine 02/21/24 Subscription Clerk Relationship Specialty Start Date End Date Horace Stiles MD [address] [place] [address] PCP - General Family Medicine 05/15/24 Ashanti López NP [address] [place] [address] Nurse Practitioner Family Medicine 02/21/24 Reason for Visit (unrecogniz ed section and content) Reason Comments Toenail Care Reason Comments Blood Sugar Problem Elevated FBS's in th e 250's, Pt recently started diet back up and FBS's have been 100 to 120 Reason Comments Follow-up Reason Comments Follow-up Ear Drainage NERVE PAIN Reason Comments DM Foot Care Dm nail care Reason Comments Diabetes Specialty Diagnoses / Procedures Referred By Contac t Referred To Contact Endocrinology Diagnoses Type II diabetes mellitus with complication ([facility]) Procedures DC OFFICE/OUTPATIENT NEW HIGH MDM 60 MINUTES Ashanti López NP [address] [place] [address] Phone: tel: fax: Zaria Lane MD [address], [address] [place] [address] Phone: tel: fax: Referral ID Status Reason Start Date Expiration Date V isits Requested Visits Authorized [id number] Closed Specialty Services Required 05/19/2024 11/15/2024 1 1 Reason Onset Date Comments Medication Problem 08/26/2024 Reason Onset Date Comments NEW PATIENT REFERRAL 05/28/2024 FOR RECORDS PERTAINING TO PATIENTS WHO ARE [...] BE BASED ON THE PRIMARY CLINICAL RECORDS. [facility]. provides no warranty or guarantee of the accuracy or completeness of information in this document.
--- NOTE | 2024-10-24 00:07 | ED.GENADUL1 ---
HPI HPI - General Adult General Chief complaint: Weakness Stated complaint: GENERAL WEAKNESS Time Seen by Provider: 10/23/24 23:32 Source: patient Mode of arrival: walk-in History of Present Illness HPI narrative: Patient is a 54-year-old male who is presenting to the ER with chief complaint of acute on chronic muscle pain and cramping. Patient came in tonight because he cannot get comfortable hide sleeping secondary to muscle cramping. Patient chief concern is he wants a muscle relaxer. Patient has multiple ongoing chronic complaints of every body system. Patient has no acute concerns tonight besides intermittent muscle cramping this been getting worse over months to years but had a hard time sleeping tonight. Patient has approximately 5 minutes from the hospital. Patient chief concern is a muscle relaxer because he cannot get a muscle relaxer currently from a PCP. Patient says that his PCP from the [facility] has left. Patient does have an appointment with a new PCP in November. New PCP cannot give him a prescription for muscle laxer as he requested. Patient says that he has been playing the game of Asthmatracker over the last year, 8 hours a day practicing his states he is hunched over a pool table practicing. Patient is not doing any ice or stretching at home. Not using Tylenol Motrin. Patient states she has had electrolytes tested multiple times in the past does not want his electrolytes tested today. Patient has no headache or neck pain. No chest pain or shortness of breath. Patient has no other acute complaints at this time. No nausea, vomiting, diarrhea. All systems are negative except as noted/marked. All systems reviewed and otherwise negative. Nurses note and vital signs reviewed and patient is not hypoxic. General: The patient appears well and in no apparent distress. Patient is resting comfortably on cart. Patient is not toxic, lethargic, or listless Skin: Warm, dry, no pallor noted. There is no rash noted. No petechiae, purpura. Head: Normocephalic, atraumatic Eye: Normal conjunctiva, no drainage, EOMI. PERRL Ears, Nose, Mouth, and Throat: oral mucosa is moist. Nares patent. Mouth without vesicles. Cardiovascular: Regular Rate and Rhythm, no murmur, gallop, rub Respiratory: Patient is in no distress, no accessory muscle use, lungs are clear to auscultation, no wheezing, rales or rhonchi Back: Mild diffuse paralumbar tenderness to palpation, no rash, the rest of his back is non-tender, no CVA tenderness bilaterally to percussion. No CT LS midline pain GI: Soft, obese, no tenderness to palpation, no masses appreciated. No rebound, guarding, or rigidity noted. No distention Musculoskeletal: Patient has full range of motion of all of the extremities, no motor, sensory, or focal neurological deficits Neurological: A&O x4, normal speech Psychiatric: Cooperative Related Data Home Medications ?Medication ?Instructions ?Recorded ?Confirmed cariprazine 6 mg capsule (Vraylar) 6 mg PO DAILY 06/26/24 06/26/24 glipizide 10 mg tablet mg 10/23/24 insulin glargine 100 unit/mL (3 40 unit subcut QPM 10/23/24 10/23/24 mL) subcutaneous pen (Lantus Solostar U-100 Insulin) Allergies Allergy/AdvReac Type Severity Reaction Status Date / Time naproxen AdvReac Severe Palpitation Verified 06/26/24 07:56 s metformin AdvReac Mild constipatio Verified 06/26/24 07:56 n Opioid HPI Opioid Management Most Recent Opioid Data: Last Pain Scale 8 10/23/24 23:37 10/23/24 PFSH PFSH Social History Little interest or pleasure in doing things: not at all Feeling down, depressed, or hopeless: not at all Exam Constitutional Vital Signs, click to edit/add: Last Vital Signs Temp 98.2 F 10/23/24 23:32 Pulse 86 10/23/24 23:32 Resp 16 10/23/24 23:32 BP 128/82 10/23/24 23:32 Pulse Ox 100 10/23/24 23:32 O2 Del Method Room Air 10/23/24 23:32 Course Vital Signs Vital signs: Vital Signs Temperature 98.2 F 10/23/24 23:32 Pulse Rate 86 10/23/24 23:32 Respiratory Rate 16 10/23/24 23:32 Blood Pressure 128/82 10/23/24 23:32 Pulse Oximetry 100 10/23/24 23:32 Oxygen Delivery Method Room Air 10/23/24 23:32 Temperature 98.2 F 10/23/24 23:32 Pulse Rate 86 10/23/24 23:32 Respiratory Rate 16 10/23/24 23:32 Blood Pressure 128/82 10/23/24 23:32 Pulse Oximetry 100 10/23/24 23:32 Oxygen Delivery Method Room Air 10/23/24 23:32 Medical Decision Making MDM Narrative Medical decision making narrative: Patient seen and examined: Shared decision making was done, patient does not want IV, lab testing done, patient is just requesting a muscle relaxer Differential diagnosis includes but is not limited to: Electrolyte abnormality, dehydration, EMELINA, rhabdo myelosis Diagnostics and management: Patient will have laboratory studies patient declines Relevant laboratory interpretation: Patient declines Radiological studies: Please see the formal radiological report. Patient declines Shared decision making: I discussed with the patient the necessary laboratory findings and radiological test that need to be done, patient declined. Social barriers to healthcare: There are no food insecurities, there is no issue with transportation, there are no insurance barriers. Disposition: I discussed with the patient the recommendation of having IV, electrolytes tested, metabolic panel, CK, and lab testing along with urine. Patient declines. Shared decision making was done, patient refuses any testing. Patient lives 5 minutes away, patient requesting muscle laxer to help him sleep tonight. Patient was given a short prescription of muscle laxer, patient has an appointment in early November with Dr. Stiles. Discharge Plan Discharge Chief Complaint: Weakness Clinical Impression: Cramps, muscle, general Patient Disposition: Home, Self-Care Condition: Fair Prescriptions / Home Meds: No Action Vraylar 6 mg capsule 6 mg PO DAILY glipizide 10 mg tablet insulin glargine [Lantus Solostar U-100 Insulin] 100 unit/mL (3 mL) insulin pen 40 unit subcut QPM Print Language: Divehi Instructions: Muscle Spasm (ED), Muscle Cramp (ED) Additional Instructions: Continue increasing fluids at home, Gatorade, Powerade, water. Alternate Tylenol and either Motrin, Advil, or ibuprofen every 4 hours to help with pain. Maximum dose of Tylenol is 3000 mg a day. Maximum dose of either Motrin, Advil, or ibuprofen is 2400 mg a day. You have opted not to have IV, IV fluids, and electrolyte and lab testing. You wanted a muscle relaxer pill. You were given 1 in the ER, short prescription for 10, you need to follow-up with your PCP Dr. Robert at your scheduled appointment in November for further testing. Use ice 20 minutes on, 20 minutes off. Continue stretching 3-4 times a day. Do not use heat. Referrals: ASHANTI NICHOLS [Primary Care Provider] - 1 week Discharge Date/Time: 10/24/24 00:15
[2024-10-24] MEDS: METHOCARBAMOL 500 MG TABLET PO (00:11)
== END 2024-10-24 00:15 | disposition home or self-care (01) ==
PROVIDERS: Emergency Provider Emergency Medicine
DX: R25.2 Cramp and spasm (principal)
CPT/HCPCS: 99283

== ENCOUNTER 2025-01-10 15:38 | Emergency (ER) | payer MEDICARE, SELFPAY ==
[2025-01-10 15:41] VITALS: BP 121/61; PULSE 70; TEMP 36.5; O2SAT 97; BMI 44.3
--- OUTSIDE RECORDS SUMMARY | 2025-01-10 15:46 | XMS_ITS | Encounter Summary ---
Author Organization [facility] Address [address] [facility] [place] [address] Care Team Providers Care Goal Umpire Name Role Phone Shaikh TK Silva Primary Care Provider [phone] Horace Stiles MD Primary Care Provider [phone] Ariadne López AFFILIATE MANAGER Unavailable [phone] Unallocated, Noms Provider Primary Care Provi chandan Horace Stiles MD Primary Care Provider [phone] Encounter Details Date Type Department Care Team (Late st Contact Info) Description 10/01/2023 Orders Only [facility] [address] [place] [address] Shaikh Silva MD [address] [place] [address] Social History Tobacco Use Types Packs/Day Years Used Date Smoking Tobacco: Every Day Cigarettes 2 36.5 Started: 1988 Passive Smoke Exposure: Never Smokeless Tobacco: Never Comments:31 or more cigarett es/day Alcohol Use Standard Drinks/Week Comments Yes 7 (1 standard drink = 0.6 oz pur e alcohol) caffeine: more than 4 cups/day PHQ-2 Answer Date Recorded Patient Health Questionnaire-2 Score 0 09/10/2023 Sex and Gender Information Value Date Recorded Sex Assigned at Not on file Legal Sex Male 8:33 PM EDT Gender Identity Not on file Sexual Orientation Not on file documented as of this encounter Plan of Treatment Upcoming Encounters Date Type Department Care Team (Late st Contact Info) Description 02/17/2025 1:50 PM EDT Office Visit [facility] [address] [place] [address] Zaria Xie MD [address], [address] [place] [address] 06/03/2025 9:00 AM EST Office Visit [facility] [address] [place] [phone] Horace Stiles MD [address] [place] [address] documented as of this encounter Visit Diagnoses Not on filedocumented in this encounter Care Teams Goal Umpire Relationship Specialty Start Date End Date Shaikh Silva MD [address] [place] [address] PCP - General Internal Medicine 08/06/23 02/20/24 Horace Stiles MD [address] [place] [address] PCP - General Family Medicine 02/21/24 05/04/24 Unallocated, Erum Daniel MD [address] [place] [address] PCP - General Family Medicine 05/05/24 05/14/24 Horace Stiles MD [address] [place] [address] PCP - General Family Medicine 05/15/24 Ariadne López NP [address] [place] [address] Nurse Practitioner Family Medicine 02/21/24 documented as of this encounter
--- OUTSIDE RECORDS SUMMARY | 2025-01-10 15:46 | XMS_ITS | Clinical Summary ---
Author Organization [facility] Address [address] [place] [address] Care Team Providers Care Solid Waste Division Supervisor Name Role Phone Ariadne López COMMUNICATIONS LEAD Unavailable [phone] Horace Stiles MD Primary Care Provider [phone] Allergies Active Allergy Reactions Criticality Noted Date Comments Amitriptyline Palpitations Low 06/26/2023 Metformin GI intolerance 06/26/2023 Medications albuterol (2.5 MG/3ML) 0.083% nebulizer solution Take by nebulization every 4 (four) hours if needed for wheezing or shortness of breath Active Lancets Ultra Thin 30G misc 1 Lancet every 12 (twelve) hours Active Alcohol Swabs (Alcohol Pads) 70 % pads 1 Pad every 12 (twelve) hours Active pen needle 31G x 5 mm miscIndications :Type II diabetes mellitus with complication (HCC) Inject 1 each under the skin Daily Use as instructed 100 each 2 04/16/20 24 Active Xanomeline-Tros pium Chloride (Cobenfy) 50-20 MG capsule Take by mouth Activ e pioglitazone (Actos) 45 MG tabletIndicatio ns:Type II diabetes mellitus with complication (HCC) Take 1 tablet (45 mg) by mouth Daily 90 tablet 3 07/28/19 25 2025 Active Semaglutide,0.2 5 or 0.5MG/DOS, (Ozempic, 0.25 or 0.5 MG/DOSE,) 2 MG/3ML solution pen-injectorInd ications:Type II diabetes mellitus with complication (HCC) Inject 0.5 mg under the skin every 7 (seven) days 6 mL 1 20 25 Active Additional Information Patient not taking.Reported on 12/01/2024 insulin glargine (Lantus SoloStar) 100 UNIT/ML penIndications: Type II diabetes mellitus with complication (HCC) Inject 45 Units under the skin at bedtime 40.5 mL 11/08/19 25 2024 Active Blood Glucose Monitoring Suppl ([facility] Blood Glucose Meter) w/Device kitIndications: Type II diabetes mellitus with complication (HCC) USE TWICE A DAY TO TEST BLOOD SUGARS 1 kit 1 12/11/19 Active glucose blood ([facility] Glucose Meter Test Strips) test stripIndication s:Type II diabetes mellitus with complication (HCC) USE TWICE A DAY TO TEST BLOOD SUGARS. 100 each 12 12/11/19 25 2025 Active [facility] Lancets Ultra Thin miscIndications :Type II diabetes mellitus with complication (HCC) USE TWICE DAY WITH LANCING DEVICE. 100 each 2 12/11/19 Active glipiZIDE XL (Glucotrol XL) 10 MG 24 hr tabletIndicatio ns:Type II diabetes mellitus with complication (HCC) TAKE 1 TABLET BY MOUTH IN THE MORNING AND 1 TABLET BEFORE BEDTIME. DO NOT CRUSH, CHEW, OR SPLIT. 180 tablet 01/06/20 Active glipiZIDE XL (Glucotrol XL) 10 MG 24 hr tabletIndicatio ns:Type II diabetes mellitus with complication (HCC) Take 1 tablet (10 mg) by mouth in the morning and 1 tablet (10 mg) before bedtime. Do not crush, chew, or split.. 180 tablet 07/28/192024 Discontinued Active Problems Problem Noted Date Diagnosed Date DDD (degenerative disc disease), lumbar 10/22/19 Type 2 diabetes mellitus wit h hyperglycemia, without long-term current use of insulin 04/07/2024 Assessment & Plan (12/01/2024 9:26 AM EDT): Not checking BS and need to follow up with endo. Assessment & Plan (08/19/2024 9:47 AM EST): Most recent A1C 11.5% 07/2024. Was referred to Endocrinology- is now following with Dr. Xie. Actos was increased, glipizide increased. Lantus increased and started on Semaglutide. States he has been taking medication exactly as directed by Dr. Xie. Reports no adverse reactions to medications, hypoglycemic episodes. Continue current regimen as directed buy Dr. Xie. Assessment & Plan (07/02/2024 9:23 AM EST): Currently taking Glipizide 5mg BID Actos 15 [...] persistent hypoglycemia/hyperglycemia on home glucose monitoring noted. Assessment & Plan (04/08/2024 2:44 PM EDT): Was on Novolin 70/30 60u BID but [...] did not tolerate. Will initiate Jardiance today Tobacco abuse 10/08/2023 Assessment & Plan (10/08/2023 10:01 AM EDT): Patient had stopped smoking but picked up smoking again. Smoking 1-2 packs a day. He realizes that she should stop and that he felt a lot better when he was not smoking. Patient encouraged and counseled. He will start working on it and try to quit. Conductive hearing loss, uni lateral, left ear with restricted hearing on the contralateral side 09/10/2023 Mixed conductive and sensori neural hearing loss of left ear with restricted hearing of right ear 09/10/2023 Class 3 severe obesity due t o excess calories with serious comorbidity and body mass index (BMI) of 40.0 to 44.9 in adult 06/26/2023 Assessment & Plan (12/01/2024 9:25 AM EDT): Weight loss indicated. Assessment & Plan (12/31/2023 10:00 AM EDT): Patient educated on risks of increased cardiovascular morbidity/mortality and poor health outcomes associated with unhealthy bodyweight. Patient counseled on lifestyle modifications, dietary restrictions. Patient encouraged to limit caloric intake and increase physical activity. Doing well. Has lost about 20 lbs since last seen Assessment & Plan (06/26/2023 10:24 AM EST): Patient educated on risks of increased cardiovascular morbidity/mortality and poor health outcomes associated with unhealthy bodyweight. Patient counseled on lifestyle modifications, dietary restrictions. Patient encouraged to limit caloric intake and increase physical activity. Therapeutic and surgical options reviewed with patient . Patient was offered opportunity to ask questions and address their concern. His trulicity was increased this appointment to 3mg/week to help with weight loss. Chronic obstructive pulmonary disease 06/26/2023 Assessment & Plan (12/01/2024 9:25 AM EDT): Sob stable and use albuterol PRN. Assessment & Plan (08/19/2024 10:09 AM EST): Reports he has recernly stopped smoking and drinking alcohol. States he feels his COPD symptoms are well controlled now compared to several months ago when he was smoking. Reports minimal rescue inhaler use. Continue current regimen. Assessment & Plan (03/06/2024 9:23 AM EDT): Worsened from baseline as he is smoking again. Reports cough and intermittent SOB on exertion with warmer days and humidity. Patient counseled on smoking cessation. Assessment & Plan (10/08/2023 10:02 AM EDT): Worsened from baseline as he is smoking again. Reports morning cough and intermittent SOB on exertion. He is not using Spiriva as he felt it did not help him. Patient counseled on smoking cessation. Assessment & Plan (06/26/2023 10:23 AM EST): Well controlled. No recent exacerbations. On Spiriva. Uses it daily. Uses ventolin as needed. C/w same, no changes. Hyperlipidemia 06/26/2023 Assessment & Plan (07/02/2024 9:24 AM EST): Not on any medication therapy currently. Triglycerides are slightly elevated. Continue to monitor closely with psychiatric medications Assessment & Plan (03/06/2024 9:27 AM EDT): Not on any medication therapy. Triglycerides are slightly elevated. Continue to monitor closely with psychiatric medications Assessment & Plan (12/31/2023 10:01 AM EDT): Not on statin Check Lipid panel. Assessment & Plan (06/26/2023 10:26 AM EST): Not on statin Check Lipid panel. Schizophrenia 06/26/2023 Assessment & Plan (12/01/2024 9:27 AM EDT): Reports stopped medication and patient with unusual behavior. Able to redirect and not aggressive but concerning. Denies thoughts of hurting self or others. Needs to follow up with psychiatry. Assessment & Plan (12/31/2023 10:01 AM EDT): Stable mood. No SI/HI. Stopped all his medications except for 10 mg Olanzapine. Follows Psych Assessment & Plan (10/08/2023 10:05 AM EDT): Stable mood. No SI/HI. Patient on 30 mg of olanzapine, 4 mg of rexulti and 600 mg of trileptal. Patient continues to have sig weight gain on antipsychotics and will benefit from adjustment in his meds. He will discuss weaning off of Olanzapine due to metabolic side effects. Assessment & Plan (06/26/2023 10:26 AM EST): Stable mood. Follows Dr Choudhury. On Trileptal and Olanzapine. Encounter for screening for malignant neoplasm o f colon 06/26/2023 Assessment & Plan (06/26/2023 10:27 AM EST): Ordered Cologuard. 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 More or less persistent, no radiculopathy. Likely muscular and posture related due to morbid obesity. Unable to participate in PT due to financial constraints. XR showed degenerative changes. Slightly better with weight loss. Assessment & Plan (11/29/2023 10:13 AM EDT): Thoracolumbar back pain, chronic, acute worsening for past 4 months. More or less persistent, no radiculopathy. Likely muscular and posture related due to morbid obesity. Trial of baclofen, tizanidine did not help. Ordered PT Can used naproxen as needed along with tylenol. XR showed degenerative changes. Hidradenitis suppurativa of left axilla 11/29/2023 12/01/2024 Assessment & Plan (11/29/2023 10:14 AM EDT): Recent flare up with open wound that was previously draining. No need for abx as more or less resolved. Discussed lifestyle measures including weight loss. Recurrent acute otitis media 09/10/2023 12/01/2024 Type 2 diabetes mellitus wit hout complication, with long-term current use of insulin 06/26/2023 04/07/2024 Assessment & Plan (03/06/2024 9:21 AM EDT): Currently not taking insulin Most recent A1C is 6.7% without medications Reports he is inconsistently taking old prescription of Glipizide if he eats poorly. Stressed the importance of adhering to medication regimen and not changing medications without consulting provider first. Assessment & Plan (12/31/2023 9:59 AM EDT): Last A1C 8.4 while on Novolin 70/30, glipizide and Actose. He stopped using all his medications and modified his diet, increased physical activity and has lost about 20 lbs since last seen. He reports w/o medications his FSBS are below 100 on average. Check A1C. Educated on importance of compliance and not stopping medications w/o first consulting with the prescribing physician. Assessment & Plan (11/29/2023 10:12 AM EDT): Improved now on Novolin 70/30 60 q12, glipizide and actose. His FSBS range from 150-180. No hypoglycemia. Patient's has been doing better since he adjusted his diet and not drinking soda anymore. Can't use metformin due to GI side effects. He is unable to use Januvia, or GLP agonists due to cost. Assessment & Plan (10/08/2023 10:00 AM EDT): Poorly controlled and very difficult to get it under control. On Novolin 70/30 60 q12. His FSBS range from 200-250. No hypoglycemia. Had a detailed discussion on lifestyle, diet. Patient will attempt to lose some weight with dietary modifications. He is also on glipizide 10 q12. Can't use metformin due to GI side effects. Add actose 45 mg. He is unable to use Januvia, or GLP agonists due to cost. Patient continues to gain weight due to high dose use of Antipsychotics. He was instructed to discuss with his psych to possibly discontinue or decrease the dose of Olanzapine. He has an appointment coming up with Psych and says that he will discuss that in his appointment. Assessment & Plan (09/24/2023 12:01 PM EDT): Poorly controlled but improved now. On Novolin 70/30 60 q12. His FSBS range from 150-200. No hypoglycemia. Had a detailed discussion on lifestyle, diet. Patient will attempt to lose some weight with dietary modifications. He is also on glipizide 10 q12. Can't use metformin due to GI side effects. A1C is 8.6 Will focus on lifestyle changes, weight loss, improved diet as he is struggling with medication cost and anything we prescribe on top of what he is on will be difficult for him to afford. Assessment & Plan (09/25/2023 3:10 PM EDT): Poorly controlled but improved now. On Novolin 70/30 60 q12. His FSBS range from 150-200. No hypoglycemia. Had a detailed discussion on lifestyle, diet. Patient will attempt to lose some weight with dietary modifications. He is also on glipizide 10 q12. Can't use metformin due to GI side effects. Unable to add anyother medication due to cost. Patient needs continuous glucometer to help improve his compliance, decrease the risk of hypoglycemia. He has sig mental health illness and it creates a barrier sometimes to reliably monitor his blood glucose and with him being on such high dosages of hypoglycemics, I believe using CGM like freestyle robinson will help improve his blood glucose levels and reduce the risk of hypoglycemia Assessment & Plan (08/06/2023 11:04 AM EST): Poorly controlled. Patient was switched to Novolin 70/30 30 units previously because of the cost Lantus and Novolog. He is also not using Trulicity anymore. Metformin gives him diarrhea. His FSBS range from 250 TO 300. No hypoglycemia. Increase Novoling 70/30 to 50 units. Had a detailed discussion on lifestyle, diet. Patient is drinking about a gallon of milk daily, coffee 10 cups daily. He has cut down on soda significantly. Has poor insight into diabetic diet. Will refer to Insulation Mechanic for diabetic counseling. Assessment & Plan (06/26/2023 10:30 AM EST): Poorly controlled. No recent labs for T2 DM He reports cost of insulin/current regimen is too high for him Currently on 50 units of lantus, 10 units of novolog along with glipizide and trulicity. His FSBS range from 200-250. No hypoglycemia. Increase Glipizide to 10 mg q12. Increase Trulicity to 3 mg /week Discontinue Lantus and Novolog. Started on NPH/Insulin 30 units q12. Ordered labs. Follow up in one month. Recommended to the patient to see an Milking Machine Operator for DM retinopathy screening. Anal pruritus 12/01/2024 Assessment & Plan (04/08/2024 2:42 PM EDT): Rx sent for hydrocortisone suppository Encounters Date Type Department Care Team Description 01/02/2025 Refill [facility] [address] [place] [address] Zaria Xie MD Type II diabetes mellitus with complication (HCC) 12/10/2024 Telephone [facility] [address] [place] [address] Zaria Xie MD Med Refill 12/01/2024 8:45 AM EDT [facility] [address] [place] [address] Horace Stiles MD Chronic obstructive pulmonary disease, unspecified COPD type (HCC) (Primary Dx); Undifferentiated schizophrenia (HCC); Class 3 severe obesity due to excess calories with serious comorbidity and body mass index (BMI) of 40.0 to 44.9 in adult ([facility]); Type 2 diabetes mellitus with hyperglycemia, without long-term current use of insulin (HCC) 12/01/2024 Bamboo flowsheet [facility] [address] [phone] Horace Stiles MD 11/20/2024 Telephone [facility] [address] [place] [address] Zaria Xie MD Medication Problem 11/06/2024 Telephone [facility] [address] [place] [address] Zaria Xie MD Med Refill 10/27/2024 Patient Outreach [facility] [address] [place] [place] [address] Martha Chan MA 10/21/2024 Telephone [facility] [address] [place] [address] Horace Stiles MD from Last 3 Months Family History Medical History Relation Name Comments Diabetes Father Heart disease Father Relation Name Status Comments Father Social History Tobacco Use Types Packs/Day Years Used Date Smoking Tobacco: Former Cigarettes 2 35.9 1 989 - 06/15/2024 Passive Smoke Exposure: Never Smokeless Tobacco: Never Tobacco Cessation:Counseling Given: Not Answered Comments:31 or more cigarettes/day Alcohol Use Standard Drinks/Week Comments Yes 7 (1 standard drink = 0.6 oz pur e alcohol) caffeine: more than 4 cups/day PHQ-2 Answer Date Recorded Patient Health Questionnaire-2 Score 0 04/07/2024 Sex and Gender Information Value Date Recorded Sex Assigned at Not on file Legal Sex Male 8:33 PM EDT Gender Identity Not on file Sexual Orientation Not on file Last Filed Vital Signs Vital Sign Reading Time Taken Comments Blood Pressure 142/70 12/01/2024 9:02 AM EDT Pulse 97 12/01/2024 9:02 AM EDT Temperature 36.2 C (97.1 F) 12/01/2024 9:02 AM EDT Respiratory Rate 18 12/01/2024 9:02 AM EDT Oxygen Saturation 99% 12/01/2024 9:02 AM EDT Inhaled Oxygen Concentration - - Weight 126 kg (277 lb) 12/01/2024 9:02 AM EDT Height 170.2 cm (5' 7 ) 12/01/2024 9:02 AM EDT Body Mass Index 43.38 12/01/2024 9:02 AM EDT Plan of Treatment Upcoming Encounters Date Type Department Care Team (Late st Contact Info) Description 02/17/2025 1:50 PM EDT Office Visit [facility] [address] [place] [address] Zaria Xie MD [address] [place] [address] 06/03/2025 9:00 AM EST [facility] [address] [place] [address] Horace Stiles MD [address] [place] [address] Health Maintenance Due Date Last Done Comments CT Colonography 1972 Colonoscopy 1972 FIT 1972 FOBT 1972 Lung Cancer Screening Shared Decision Making 1972 Sigmoidoscopy 1972 Diabetes: Urine Protein Screening 06/29/2024 023 Medicare Annual Wellness (AWV) 08/01/2024 08/01/2023 Diabetes: Retinopathy Screening 12/14/2024 Diabetes: Hemoglobin A1C 01/25/2025 025, 07/02/2024, 09/24/2023, Additional history exists Influenza Vaccine (Season Ended) 2025 Colorectal Cancer Screening 06/15/2026 FIT-DNA 06/15/2026 06/15/2023 Procedures Procedure Name Priority Date/Time Associated Diagnosis Comments POCT GLYCOSYLATED HEMOGLOBIN (HGB A1C) Routine 07/28/2024 1:05 PM EST Type II diabetes mellitus with complication (HCC) from Last 3 Months or Most Recently Relevant to Health Maintenance Results * (ABNORMAL) POCT glycosylated hemoglobin (Hb A1C) docked device (07/28/2024 1:05 PM EST) Hemoglobin A1C 11.5 Blood Venous blood specimen / Unknown 07/28/2024 1:05 PM EST Zaria Xie MD POINT OF CARE TEST ENTER/EDIT ORDERABLES Final Result from Last 3 Months or Most Recently Relevant to Health Maintenance Insurance [employer] MEDICARE ADVANTAGE MEDICARE [employer] MEDICARE ADVANTAGE MEDICARE Care Teams Solid Waste Division Supervisor Relationship Specialty Start Date End Date Horace Stiles MD [address] [place] [address] PCP - General Family Medicine 05/15/24 Ariadne López NP Nurse Practitioner Family Medicine 02/21/24
--- OUTSIDE RECORDS SUMMARY | 2025-01-10 15:46 | XMS_ITS | Clinical Summary ---
Author Organization [facility] Address [id number] [address] [place] [address] Care Team Providers Care Membership Assistant Name Role Phone Unavailable Primary Care Provider Unavailabl e Social History Tobacco Use Types Packs/Day Years Used Date Smoking Tobacco: Never Assessed Childcare Answer Date Recorded Childcare Unknown 12/25/2018 Employment Answer Date Recorded Employment Unknown 12/25/2018 Sex and Gender Information Value Date Recorded Sex Assigned at Not on file Legal Sex Male 11:47 AM EDT Gender Identity Not on file Sexual Orientation Not on file Plan of Treatment Health Maintenance Due Date Last Done Comments Diabetic Ophthalmology Exam 1972 Depression Screening 1984 Tobacco Screening 1984 Adult BMI Screening 1990 Diabetic Foot Exam 1990 DTaP,Tdap and Td Vaccines (1 - Tdap) 1991 Zoster (Shingles) Vaccine (1 of 2) 2022 Influenza Vaccine 03/16/2025 Medical Devices Not on file
--- OUTSIDE RECORDS SUMMARY | 2025-01-10 15:46 | XMS_ITS | Encounter Summary ---
Author Organization [facility] Address [address] [place] [address] Care Team Providers Care Physician Internist Name Role Phone Ariadne López AUTOCAD OPERATOR Unavailable [phone] Horace Stiles MD Primary Care Provider [phone] Reason for Visit * Reason Comments Med Refill Encounter Details Date Type Department Care Team (Late st Contact Info) Description 01/02/2025 Refill [facility] [address] [place] [phone] Zaria Xie MD [address] [place] [address] Type II diabetes mellitus with complication (HCC) Social History Tobacco Use Types Packs/Day Years [...] on file documented as of this encounter Miscellaneous Notes * Telephone Encounter - Theresa Arvizu LPN - 01/05/2025 2:33 PM EDT MEDICATION SENT TO PHARMACY. * Telephone Encounter - Thee Neves - 01/05/2025 9:09 AM EDT [facility] ref[facility]ide [facility]. Thank you! documented in this encounter Plan of Treatment Upcoming Encounters Date Type Department Care Team (Late st Contact Info) Description 02/17/2025 1:50 PM EDT Office Visit [facility] [address] [place] [address] Zaria Xie MD [address] [place] [address] 06/03/2025 9:00 AM EST Office Visit [facility] [address] [place] [address] Horace Stiles MD [address] [place] [place] [address] documented as of this encounter Visit Diagnoses Diagnosis Type II diabetes mellitus with complication (HCC) Type II or unspecified type diabetes mellitus with unspecified complication, not stated as uncontrolled documented in this encounter Care Teams Physician Internist Relationship Specialty Start Date End Date Horace Stiles MD [address] [place] [phone] PCP - General Family Medicine 05/15/24 Ariadne López NP Nurse Practitioner Family Medicine 02/21/24 documented as of this encounter
--- OUTSIDE RECORDS SUMMARY | 2025-01-10 15:46 | XMS_ITS | Encounter Summary ---
Author Organization [facility] Address [address] [facility] [place] [address] Care Team Providers Care Oil Heaterman Name Role Phone Shaikh TK Silva Primary Care Provider [phone] Horace Stiles MD Primary Care Provider [phone] Ariadne López ATG JAVA DEVELOPER Unavailable [phone] Unallocated, [facility] Provider Primary Care Provi chandan Horace Stiles MD Primary Care Provider [phone] Encounter Details Date Type Department Care Team (Late st Contact Info) Description 08/27/2023 Orders Only [facility] [address] [place] [address] Shaikh Silva MD [address] [place] [phone] Social History Tobacco Use Types Packs/Day Years Used Date Smoking Tobacco: Every Day Cigarettes 2 36.5 Started: 1988 Smokeless Tobacco: Never Comments:31 or more cigarett es/day Alcohol Use Standard Drinks/Week Comments Yes 7 (1 standard drink = 0.6 oz pur e alcohol) caffeine: more than 4 cups/day PHQ-2 Answer Date Recorded Patient Health Questionnaire-2 Score 0 08/06/2023 Sex and Gender Information Value Date Recorded Sex Assigned at Not on file Legal Sex Male 8:33 PM EDT Gender Identity Not on file Sexual Orientation Not on file documented as of this encounter Plan of Treatment Upcoming Encounters Date Type Department Care Team (Late st Contact Info) Description 02/17/2025 1:50 PM EDT Office Visit [facility] [address] [place] [address] Zaria Xie MD [address] [place] [address] 06/03/2025 9:00 AM EST Office Visit [facility] [address] [place] [address] Horace Stiles MD [address] [place] [address] documented as of this encounter Visit Diagnoses Not on filedocumented in this encounter Care Teams Oil Heaterman Relationship Specialty Start Date End Date Shaikh Silva MD [address] [place] [address] PCP - General Internal Medicine 08/06/23 02/20/24 Horace Stiles MD [address] [place] [address] PCP - General Family Medicine 02/21/24 05/04/24 Unallocated, Erum Daniel MD [address] [place] [address] PCP - General Family Medicine 05/05/24 05/14/24 Horace Stiles MD [address] [place] [address] PCP - General Family Medicine 05/15/24 Ariadne López NP [address] [place] [address] Nurse Practitioner Family Medicine 02/21/24 documented as of this encounter
--- OUTSIDE RECORDS SUMMARY | 2025-01-10 15:46 | XMS_ITS | Encounter Summary ---
Author Organization [facility] Address [address] [facility] [place] [address] Care Team Providers Care Side Piece Coverer Name Role Phone Horace Stiles MD Primary Care Provider [phone] Ariadne López SUCTION WORKER Unavailable [phone] Unallocated, [facility] Provider Primary Care Provi chandan Horace Stiles MD Primary Care Provider [phone] Reason for Visit * Reason Onset Date Comments Med Refill Medication Question 04/23/2024 Encounter Details Date Type Department Care Team (Late st Contact Info) Description 04/23/2024 Refill [facility] [address] [place] [phone] Ariadne López NP Type II diabetes mellitus with complication (HCC) [...] encounter Miscellaneous Notes * Telephone Encounter - Yu Dubose - 05/07/2024 4:44 PM EDT Patient said he increased his insulin from 20mg to 50mg and still no difference. He wants to know how much he should be increasing his insulin to. He would like you or Corazon to call him, as he said rhetthas left previous messages with the MA and no return call yet. JN * Telephone Encounter - Cecille Farr - 05/05/2024 4:13 PM EDT Patient called and states that he is not going to take his glipizide bc its not doing anything in his opinion.. He states its his medication and he has the choice to do as he wants. Want you to give him a call * Telephone Encounter - Ariadne López NP - 04/23/2024 4:28 PM EDT Duplicate- ordered today documented in this encounter Plan of Treatment Upcoming Encounters Date Type Department Care Team (Late st Contact Info) Description 02/17/2025 1:50 PM EDT Office Visit [facility] [address] [place] [address] Zaria Xie MD [address] [place] [address] 06/03/2025 9:00 AM EST [facility] [address] [place] [phone] Horace Stiles MD [address] [place] [phone] documented as of this encounter Visit Diagnoses Diagnosis Type II diabetes mellitus with complication (HCC) Type II or unspecified type diabetes mellitus with unspecified complication, not stated as uncontrolled documented in this encounter Care Teams Side Piece Coverer Relationship Specialty Start Date End Date Horace Stiles MD [address] [place] [phone] PCP - General Family Medicine 02/21/24 05/04/24 Unallocated, [facility] Provider, [address] [place] [address] PCP - General Family Medicine 05/05/24 05/14/24 Horace Stiles MD [address] [place] [address] PCP - General Family Medicine 05/15/24 Ariadne López NP [address] [place] [phone] Nurse Practitioner Family Medicine 02/21/24 documented as of this encounter
--- OUTSIDE RECORDS SUMMARY | 2025-01-10 15:46 | XMS_ITS | Encounter Summary ---
Author Organization [facility] Address [address] [facility] [place] [address] Care Team Providers Care Data Management Name Role Phone Shaikh TK Silva Primary Care Provider [phone] Horace Stiles MD Primary Care Provider [phone] Ariadne López [employer] SALES REPRESENTATIVE Unavailable [phone] Unallocated, [facility] Provider Primary Care Provi chandan Horace Stiles MD Primary Care Provider [phone] Encounter Details Date Type Department Care Team (Late st Contact Info) Description 11/28/2023 Clinisync Result Encounter [facility] External Department Unsolicited Shaikh Silva MD [address] [facility] [place] [address] Social History Tobacco Use Types Packs/Day Years Used Date Smoking Tobacco: Every Day Cigarettes 2 36.5 Started: 1988 Passive Smoke Exposure: Never Smokeless Tobacco: Never Comments:31 or more cigarett es/day Alcohol Use Standard Drinks/Week Comments Yes 7 (1 standard drink = 0.6 oz pur e alcohol) caffeine: more than 4 cups/day PHQ-2 Answer Date Recorded Patient Health Questionnaire-2 Score 0 11/29/2023 Sex and Gender Information Value Date Recorded Sex Assigned at Not on file Legal Sex Male 8:33 PM EDT Gender Identity Not on file Sexual Orientation Not on file documented as of this encounter Functional Status * Over the past 2 weeks, how often have you been bothered by any of the following problems? Question Answer Date of Assessment Author Little interest or pleasure in doing things Not at all 11/29/2023 9:50 AM EDT Martha Chan M A Feeling down, depressed, or hopeless Not at all 11/29/2023 9:50 AM EDT Martha Chan M A Patient Health Questionnaire -2 Score 0 11/29/2023 9:50 AM EDT Martha Chan M A documented as of this encounter Plan of Treatment Upcoming Encounters Date Type Department Care Team (Late st Contact Info) Description 02/17/2025 1:50 PM EDT Office Visit [facility] [address] [place] [address] Zaria Xie MD [address] [place] [address] 06/03/2025 9:00 AM EST [facility] [address] [place] [address] Horace Stiles MD [address] [place] [address] documented as of this encounter Procedures Procedure Name Priority Date/Time Associated Diagnosis Comments XR LUMBAR SPINE 2 OR 3V 11/28/2023 10:15 AM EDT documented in this encounter Results * XR LUMBAR SPINE 2 OR 3V (11/28/2023 10:15 AM EDT) Anatomical Region Laterality Modality Radiographic Mary ging 11/28/2023 10:1 5 AM EDT Narrative 11/28/2023 10:18 AM EDT The [address] [address] XRay Report Signed Patient: JOHNNY VERMA MR#: [id number] : 1970 Acct:[id number] Age/Sex: 53 / M ADM Date: 11/28/23 Loc: RAD Attending Dr: Shaikh Shira Herman Ordering Physician: Shaikh Batsheva Silva Date of Service: 11/28/23 Procedure(s): XR lumbar spine 2-3V Accession Number(s): [id number] cc: Shaikh Batsheva Silva The [address] [address] Patient Name: JOHNNY VERMA MRN: [id number] date: 1970 Sex: M Assigned Patient Location: RAD Current Patient Location: RAD Accession/Order Number: [id number] Exam Date: 11/28/2023 08:40 Report Date: 11/28/2023 10:15 At the request of: SHAIKH SHIRA Procedure: XR lumbar spine 2-3V EXAMINATION: XR lumbar spine 2-3V HISTORY: Chronic Low Back Pain M54.50 COMPARISON: No relevant comparison available. FINDINGS: BONES: Normal alignment with no acute fracture or spondylolisthesis. Mild to moderate spondylosis and facet osteoarthropathy DISC SPACES: Normal. No significant disc height narrowing, subluxation, or endplate abnormality. PARASPINOUS: Negative. No paraspinous abnormality is seen. OTHER: Negative. XR/XR lumbar spine 2-3V IMPRESSION: Mild to moderate degenerative changes Electronically authenticated by: SREEDHAR JONES Date: 11/28/2023 10:15 Dictated By: Sreedhar Jones M.D. Signed By: 11/28/23 1018 DD/ 1015 TD/TT: Chainstitch Sewing Machine Operator: Procedure Note Radiology, Radiologist, MD - 11/28/[address] [address] XRay Report Signed Patient: JOHNNY VERMA DMR#: [id number] : 1970Acct:[id number] Age/Sex: 53 / MADM Date: 11/28/23 Loc: RAD Attending Dr: Shaikh Shira Herman Ordering Physician: Shaikh Batsheva Silva Date of Service: 11/28/23 Procedure(s): XR lumbar spine 2-3V Accession Number(s): [id number] cc: Shaikh Batsheva Silva The [place] [id number] Patient Name: JOHNNY VERMA MRN: [id number] date: 1970 Sex: M Assigned Patient Location: RAD Current Patient Location: RAD Accession/Order Number: [id number] Exam Date: 11/28/2023 08:40 Report Date: 11/28/2023 10:15 At the request of: SHAIKH SHIRA Procedure: XR lumbar spine 2-3V EXAMINATION: XR lumbar spine 2-3V HISTORY: Chronic Low Back Pain M54.50 COMPARISON: No relevant comparison available. FINDINGS: BONES: Normal alignment with no acute fracture or spondylolisthesis. Mildto moderate spondylosis and facet osteoarthropathy DISC SPACES: Normal. No significant disc height narrowing, subluxation, or endplate abnormality. PARASPINOUS: Negative. No paraspinous abnormality is seen. OTHER: Negative. XR/XR lumbar spine 2-3V IMPRESSION: Mild to moderate degenerative changes Electronically authenticated by: SREEDHAR JONES Date: 11/28/2023 10:15 Dictated By: Sreedhar Jones M.D. Signed By:11/28/23 1018 DD/ 1015 TD/TT: Chainstitch Sewing Machine Operator: Shaikh Shira FREY IMG XR PROCEDURES Final Result documented in this encounter Visit Diagnoses Not on filedocumented in this encounter Care Teams Data Management Relationship Specialty Start Date End Date Shaikh Silva MD [address] [place] [address] PCP - General Internal Medicine 08/06/23 02/20/24 Horace Stiles MD [address] [place] [address] PCP - General Family Medicine 02/21/24 05/04/24 Unallocated, Noms MD [address] [place] [address] PCP - General Family Medicine 05/05/24 05/14/24 Horace Stiles MD [address] [place] [phone] PCP - General Family Medicine 05/15/24 Ariadne López NP [address] [place] [phone] Nurse Practitioner Family Medicine 02/21/24 documented as of this encounter
--- OUTSIDE RECORDS SUMMARY | 2025-01-10 15:46 | XMS_ITS | Clinical Summary ---
Author Organization [facility] Address [address] [place] [address] Phone Care Team Providers Care Barrel Bridge Assembler Name Role Phone Bam Mcfarland MD Primary Care Provider [phone] Social History Tobacco Use Types Packs/Day Years Used Date Smoking Tobacco: Never Assessed Sex and Gender Information Value Date Recorded Sex Assigned at Not on file Legal Sex Male 3:12 PM EST Gender Identity Not on file Sexual Orientation Not on file Plan of Treatment Not on file Care Teams Barrel Bridge Assembler Relationship Specialty Start Date End Date Bam Mcfarland MD [address] [place] [address] PCP - General 11/21/18
--- OUTSIDE RECORDS SUMMARY | 2025-01-10 15:47 | XMS_ITS | CCD ---
Author Organization [facility] Care Team Providers Care Match Up Worker Name Role Phone PIERRE, KUL B Unavailable [...] Admitting Unavailmaite GONZALEZ, DR JUNITO Galvan Attending DR JUNITO Javier Consulting UnavailSHANE Duke Admitting Unavailable SHANE NATH Attending Unavailable SHAIKH SIMS H Primary Care Unavailable SHANE NATH Consulting Unavailable SHAIKH SIMS Attending Unavailable SHAIKH SIMS Attending Unavailable MARIBEL, MS. ASHANTI ELIZABETH Primary Care P hysicidarnell Go FREY, Horace Primary Care Provider Maribel PRETZEL COOKER, Ashanti Unavailable [phone] AMITA FERNANDEZ Attending Unavailable SHAIKH SIMS Primary Care Unavailable AMITA FERNANDEZ Attending Unavailable MARIBEL, ASHANTI Primary Care UnavailAMITA Ring Attending Unavailable MARIBEL, ASHANTI Primary Care Unavailmaite Rollins MD, Horace Primary Care Provider Unavailable Primary Care Provider Unavailmaite López PRETZEL COOKER, Ashanti Unavailable ASHANTI LÓPEZ Attending UnavailHORACE Lin Attending Unavailable SHAIKH SIMS Attending Unavailable MARIBEL, ASHANTI Attending UnavailASHANTI Hernandez Attending UnavailANTHONY Prasad Attending Unavailable MARIBEL, ASHANTI Attending UnavailANTHONY Prasad Attending Unavailable ZARIA LANE Attending Unavailable ASHANTI LÓPEZ Referring UnavailKota Boss Attending Unavailab Kota Cox Admitting Unavailab Bam Chin Primary Care Unavailable Allergies Allergy Classification Reported Allergen(s) Allergy Type Date of Onset Reaction(s) Facility (20 sources) metFORMIN; Translations: [metformin] Drug Allergy 3 Unknown (qualifier value), GI intolerance [facility] (20 sources) Amitriptyline Drug Allergy 3 Palpitations [facility] (1 source) Shellfish Drug allergy (disorder) 7 [facility] Repository Medications Current Medications Medication Drug [...] Start Date: 09/23/10 Status: Ordered Continuous Glucose Auto Emissions Technician (FreeStyle Tenzin 2 [place]) device (1 source) Start: 07-28-2024 End: 07-28-2024 Continuous Glucose Auto Emissions Technician (FreeStyle Tenzin 2 [place]) device Indications: Type II diabetes mellitus with complication (CMS/HCC) 1 Device 1 (one) time for 1 dose 1 each 07/28/2024 07/28/2024 Active Continuous Glucose Sensor (FreeStyle Tenzin 2 Sensor) [facility] (5 sources) Start: 07-28-2024 End: 10-26-2024 Continuous Glucose Sensor (FreeStyle Tenzin 2 Sensor) [facility] Indications: Type II diabetes mellitus with complication [...] BID, # 60 tab(s), Refills(s) 0, Pharmacy: [facility] Start Date: 04/11/21 Status: Ordered hydrocortisone acetate [...] pen injector (20 sources) Insulin Analog Start: 11-07-2024 End: 02-05-2025 insulin glargine (Lantus SoloStar) 100 UNIT/ML pen Indications: Type II diabetes mellitus with complication (CMS/HCC) Inject 45 Units under the skin at bedtime 40.5 mL 11/07/2024 02/05/2025 Active Start: 07-28-2024 End: 10-26-2024 insulin glargine (Lantus Lucy oStar) 100 UNIT/ML [...] # 14 tab(s), Refills(s) 0, Pharmacy: [facility]/pharmacy #[id number], 170, cm, 04/03/24 10:50:00 EDT, Height/Length [...] Status: Ordered pioglitazone 45 mg oral tablet (20 sources) Peroxisome Proliferator Receptor alpha Agonist, Peroxisome [...] or 0.5 MG/DOSE,) 2 MG/3ML solution pen-injector (8 sources) Start: 07-28-2024 Semaglutide,0. 25 or 0.5MG/DOS, (Ozempic, 0.25 or 0.5 MG/DOSE,) 2 MG/3ML solution pen-injector Indications: Type II diabetes mellitus with complication (CMS/HCC) Inject 0.5 mg under the skin every 7 (seven) days 6 mL 1 07/28/2024 Active Start: 07-28-2024 End: 10-26-2024 Semaglutide,0.25 or 0.5MG/DO S, (Ozempic, 0.25 or 0.5 MG/DOSE,) 2 MG/3ML solution pen-injector Indications: Type II diabetes mellitus with complication (CMS/HCC) Inject 0.5 mg under the skin every 7 (seven) days 6 mL 1 07/28/2024 10/26/2024 Active tadalafil 20 mg oral tablet (1 source) Phosphodiesterase 5 Inhibitor Start: 11-15-2021 take 1 tablet by mouth once daily Cialis 20 mg Tab 20 mg = 1 tab(s), Oral, Daily, As directed for erectile dysfunction., # 30 tab(s), Refills(s) 3, Pharmacy: [facility], 170, cm, 11/15/21 9:38:00 EDT, Height/Length Dosing, 116.6, kg, 11/15/21 9:38:00 EDT, Weight Dosing Start Date: 11/15/21 Status: Ordered 60 actuat testosterone 20.25 mg/actuat topical gel (2 sources) Androgen Start: 08-23-2021 AndroGel Pump 20.25 mg/1.25 g (1.62%) transdermal gel = 2 pump, Topical, qAM, # 75 gram, Refills(s) 1, Pharmacy: [facility], 170, cm, 07/05/21 10:18:00 EST, Height/Length Dosing, 170, kg, 08/23/21 9:37:00 EST, Weight Dosing Start Date: 08/23/21 Status: Ordered vardenafil 20 mg oral tablet (1 source) Phosphodiesterase 5 Inhibitor Start: 01-17-2022 take 1 tablet by mouth once daily as needed Levitra 20 mg Tab 20 mg = 1 tab(s), Oral, Daily, PRN for erectile dysfunction, # 30 tab(s), Refills(s) 1, Pharmacy: [facility], 170, cm, 01/17/22 10:42:00 EDT, Height/Length Dosing, 116.6, kg, 01/17/22 10:42:00 EDT, Weight Dosing Start Date: 01/17/22 Status: Ordered Xanomeline-Trospi um Chloride (Cobenfy) 50-20 MG capsule (16 sources) Xanomeline-Trosp iu m Chloride (Cobenfy) 50-20 MG capsule Take by mouth Active ziprasidone 60 mg oral capsule (4 sources) Atypical Antipsychotic Start: 11-11-2024 End: 12-01-2024 take 1 capsule by mouth twice daily at mealtime ziprasidone (Geodon) 60 MG capsule TAKE 1 CAPSULE BY MOUTH TWICE A DAY WITH FOOD 11/11/2024 12/01/2024 Discontinued Start: 10-29-2024 End: 12-01-2024 take 1 capsule by mouth twice daily at mealtime ziprasidone (Geodon) 20 MG capsule TAKE 1 CAPSULE BY MOUTH TWICE A DAY WITH FOOD 10/29/2024 12/01/2024 Discontinued Completed/Discontinued Medications Medication Drug Class(es) Dates Sig [...] Indications: Type II diabetes mellitus with complication ([facility]) Take 1 tablet (10 mg) by mouth [...] source) Long-term current use of insulin; Translations: [FCI (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 of insulin] 07-28-2024 Episodic Other [...] (20 sources) Pruritus ani; Translations: [Pruritus ani] Resolved: 12-01-2024 03-06-2024 Episodic Other male genital disorders (10 [...] Chronic Other nutritional; endocrine; and metabolic disorders (5 sources) Severe obesity; Translations: [Class 3 severe obesity due to excess calories with serious comorbidity and body mass index (BMI) of 40.0 to 44.9 in adult ([facility])] Onset: 06-26-2023 07-28-2024 Chronic Residual codes; unclassified (2 sources) Pain; Translations: [Pain, unspecified] Onset: 11-15-2022 Episodic Residual codes; unclassified (3 sources) Electric shock type pain 11-15-2022 Episodic Schizophrenia and other psychotic disorders (20 sources) Schizoaffective disorder, unspecified; 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] Onset: 01-29-2017 06-26-2023 Chronic Spondylosis; intervertebral disc disorders; other back problems (4 sources) Degeneration of lumbar intervertebral disc; Translations: [DDD (degenerative disc disease), lumbar] Onset: 10-21-2024 10-21-2024 Chronic Substance-related disorders (1 source) Nicotine dependence, [...] 03-24-2022 Episodic Other aftercare (5 sources) 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; Translations: [OTH COLD REDUCTION ROLLER CURRENT DRUG THERAPY] Onset: 12-08-2021 Episodic Other aftercare (1 source) [facility]CI (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 of insulin; Translations: [COLD REDUCTION ROLLER CURRENT USE OF INSULIN] Onset: 03-27-2022 Episodic Other ear and sense organ disorders (20 sources) Malignant otitis externa; Translations: [Malignant otitis externa, bilateral] Onset: 04-08-2024 Resolved: 04-08-2024 04-08-2024 Chronic Other ear and sense organ disorders (20 sources) Acute otitis externa of bilateral ears; Translations: [Unspecified acute noninfective otitis externa, bilateral] Onset: 04-08-2024 Resolved: 12-01-2024 04-08-2024 Episodic Other gastrointestinal disorders (1 source) [...] hidradenitis suppurativa; Translations: [Hidradenitis suppurativa] Onset: 11-29-2023 Resolved: 12-01-2024 11-29-2023 Episodic Otitis media and related conditions (20 sources) Recurrent acute otitis media; Translations: [Otitis media, unspecified, unspecified ear] Onset: 09-10-2023 Resolved: 12-01-2024 09-10-2023 Episodic Residual codes; unclassified (20 sources) Tobacco user; Translations: [Tobacco use] Onset: 10-08-2023 10-08-2023 Episodic Spondylosis; intervertebral disc disorders; other back problems (20 sources) Backache; Translations: [Thoracolumbar back pain] Onset: 11-29-2023 Resolved: 10-21-2024 11-29-2023 Episodic Results Test Name Value Interpretation Reference Range Facility Glucose (Bld) [Mass/Vol]on 0 07-28-2024 Glucose Blood, POC 484 mg/dL [facility] No Panel Informationon 07-28 Interpretation and review of laboratory results Abnormal [facility] POCT glycosylated hemoglobin (Hb A1C) docked deviceon 07-28-2024 HbA1c (Bld) [Mass fraction] 11.5 % [facility] HbA1c (Bld) [Mass fraction]o n 07-02-2024 Interpretation and review of laboratory results Abnormal [facility] Laboratory - Hematology and Cell countson 07-02-2024 HbA1c (Bld) [Mass fraction] 12.6 % [facility] Urology Office/Clinic Noteon 05-02-2024 Urology [...] all in the future. Order sent to [facility]. 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 This needs to be w male Ordered: Complex E&M Add on G2211 E&M of Est. Patient Moderate 30-39 Min 00695 Follow-up With When Contact Information Schedule with male MD for ICI teaching [facility] Additional Instructions: Patient Education Erectile Dysfunction Problem [...] [id number] vax 12/11/2020 Recorded 2022-11-15: [id number] Normal [facility] Comment on above: Result Comment: Elec tronically Signed By: REBECCA OLIVEIRA, AMITA Huang\.br\Date and Time Signed: 05/02/24 14:57 EDT Ambulatory Visit Summaryon 1 Ambulatory Visit Summary Ambulatory Visit Summary JOHNNY VERMA :1970 Visit Date:04/29/2024 Ambulatory Visit Instructions Your Diagnosis ED (erectile dysfunction) Hypogonadism male Your Care Team Attending Physician - AMITA FERNANDEZ PA-C Primary Care Physician - MARIBEL, MS. ASHANTI ELIZABETH This Is Your Medications List albuterol (albuterol [...] for choosing us for your care. Normal [facility] MLR HEMOGLOBIN A1Con 024 Glucose [Mass/Vol] 237 mg/dL [facility] HbA1c (Bld) [Mass fraction] 9.9 % High 4.5 - 6.2 % [facility] Comment on above: ADA RECOMMENDED LIMI T 4.0 - 6.0 ADA THERAPEUTIC TARGET < 7.0 ACTION SUGGESTED > 7.0 Interpretation and review of laboratory results Abnormal [facility] Urology Office/Clinic Noteon 04-03-2024 Urology [...] pain: denies Sexual complaints: severe ED per [facility] Review of Systems PHQ Score Initial Depression [...] E&M of Est. Patient Moderate 30-39 Min 97470 Urnls Dip Stick Auto w/o Microscopy POC 12302 2. ED (erectile dysfunction) (N52.1: Erectile dysfunction [...] E&M of Est. Patient Moderate 30-39 Min 68724 Urnls Dip Stick Auto w/o Microscopy POC 77434 3. 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 Patient Moderate 30-39 Min 07660 Urnls Dip Stick Auto w/o Microscopy POC 35625 4. Urinary frequency (R35.0: Frequency of micturition) IPSS 13 (freq 5, urge 3, noct 5) However pt reports significant fluid intake. I'm drinking all day long. Goes through 1 gallon milk every 2 days. Also drinks Alex-aid, water, coffee, and beer. We discussed bladder irritants and typical voiding patterns in relation to excessive fluid intak (more content not included)... Normal [facility] Comment on above: Result Comment: Elec tronically Signed By: REBECCA OLIVEIRA, AMITA Huang\.br\Date and Time Signed: 04/03/24 13:04 EDT CBC AUTO DIFFon 11-24-2022 BASO # 0.1 103/ul Normal 0.0-0.1 [facility] Comment on above: Performed By: #### C BC #### [facility] [address] [place] [address] Dr. Kenna Thomas Basophils/100 WBC (Bld) 1.1 % Normal 0.2-2.0 [facility] Comment on above: Performed By: #### C BC #### [facility] [address] [place] [address] Dr. Kenna Thomas EO # 0.4 103/ul Normal 0.0-0.7 [facility] Comment on above: Performed By: #### C BC #### [facility] [address] [place] [address] Dr. Kenna Thomas Eosinophils/100 WBC (Bld) 4.6 % Normal 0.9-7.0 [facility] Comment on above: Performed By: #### C BC #### [facility] [address] [place] [address] Dr. Kenna Thomas Erythrocyte distribution width (RBC) [Ratio] 11.5 % Normal 11.0-15.0 [facility] Comment on above: Performed By: #### C BC #### [facility] [address] [place] [address] Dr. Kenna Thomas Hematocrit (Bld) [Volume fraction] 44.3 % Normal 42.0-54.0 [facility] Comment on above: Performed By: #### C BC #### [facility] [address] [place] [address] Dr. Kenna Thomas Hemoglobin (Bld) [Mass/Vol] 15.8 g/dL Normal 14.0-18.0 [facility] Comment on above: Performed By: #### C BC #### [facility] [address] [place] [address] Dr. Kenna Thomas IG # 0.03 10e3/ul Normal 0.00-0.03 [facility] Comment on above: Performed By: #### C BC #### [facility] [address] [place] [address] Dr. Kenna Thomas IG % 0.4 % Normal 0.0-0.5 [facility] Comment on above: Performed By: #### C BC #### [facility] [address] [place] [address] Dr. Kenna Thomas LYMPH # 1.8 103/ul Normal 1.2-3.8 [facility] Comment on above: Performed By: #### C BC #### [facility] [address] [place] [address] Dr. Kenna Thomas Lymphocytes/100 WBC (Bld) 23.3 % Normal 20.5-60.0 [facility] Comment on above: Performed By: #### C BC #### [facility] [address] [place] [address] Dr. Kenna Thomas MANUAL DIFF REQ NO Normal [facility] Comment on above: Performed By: #### C BC #### [facility] [address] [address] [address] Kenna Thomas MCH (RBC) [Entitic mass] 34.1 pg Critically high 25.9-34.0 [facility] Comment on above: Performed By: #### C BC #### [facility] [address] [address] [address] Kenna Thomas MCHC (RBC) [Mass/Vol] 35.7 g/dL Critically high 29.9-35.2 [facility] Comment on above: Performed By: #### C BC #### [facility] [address] [place] [address] Dr. Kenna Thomas MCV (RBC) [Entitic vol] 95.5 fL Critically high 80.0-94.0 [facility] Comment on above: Performed By: #### C BC #### [facility] [address] [place] [address] Dr. Kenna Thomas MONO # 0.7 103/ul Normal 0.3-0.8 [facility] Comment on above: Performed By: #### C BC #### [facility] [address] [place] [address] Dr. Kenna Thomas Monocytes/100 WBC (Bld) 8.4 % Normal 1.7-12.0 [facility] Comment on above: Performed By: #### C BC #### [facility] [address] [place] [address] Dr. Kenna Thomas NEUT # 4.9 103/ul Normal 1.4-6.5 [facility] Comment on above: Performed By: #### C BC #### [facility] [address] [place] [address] Dr. Kenna Thomas Neutrophils/100 WBC (Bld) 62.2 % Normal 43.0-75.0 [facility] Comment on above: Performed By: #### C BC #### [facility] [address] [place] [address] Dr. Kenna Thomas Platelet mean volume (Bld) [Entitic vol] 9.6 fL Normal 9.5-13.5 [facility] Comment on above: Performed By: #### C BC #### [facility] [address] [address] [address] Kenna Thomas PLT 251 103/ul Normal 150-450 [facility] Comment on above: Performed By: #### C BC #### [facility] [address] [address] [address] Kenna Thomas RBC 4.64 106/ul Critically low 4.70-6.10 [facility] Comment on above: Performed By: #### C BC #### [facility] [address] [address] [address] Kenna Thomas WBC 7.9 103/ul Normal 4.0-11.0 [facility] Comment on above: Performed By: #### C BC #### [facility] [address] [place] [address] Dr. Kenna Thomas GLYCOHEMOGLOBIN A1Con 2022 ADA RECOMMENDATION SEE BELOW Normal [facility] Comment on above: Result Comment: ADA RECOMMENDED LIMIT 4.0 - 6.0 ADA THERAPEUTIC TARGET < 7.0 ACTION SUGGESTED > 7.0 Performed By: #### G ELGIN, LIPID #### [facility] [address] [place] [address] Dr. Kenna Thomas Glucose [Mass/Vol] 171 mg/dL Normal [facility] Comment on above: Performed By: #### G ELIGN, LIPID #### [facility] [address] [place] [address] Dr. Kenna Thomas HbA1c (Bld) [Mass fraction] 7.6 % Critically high 4.5-6.2 [facility] Comment on above: Performed By: #### G ELGIN, LIPID #### [facility] [address] [place] [address] Dr. Kenna Thomas PROF 14(COMP METB)on 023 Albumin [Mass/Vol] 3.4 g/dL Normal 3.4-5.0 [facility] Comment on above: Performed By: #### C MP #### [facility] [address] [place] [address] Dr. Kenna Thomas Albumin/Globulin [Mass ratio] 0.7 {ratio} Normal [facility] Comment on above: Performed By: #### C MP #### [facility] [address] [place] [address] Dr. Kenna Thomas ALP [Catalytic activity/Vol] 166 U/L Critically high 46-116 [facility] Comment on above: Performed By: #### C MP #### [facility] [address] [place] [address] Dr. Kenna Thomas ALT [Catalytic activity/Vol] 46 U/L Normal 16-63 [facility] Comment on above: Performed By: #### C MP #### [facility] [address] [place] [address] Dr. Kenna Thomas Anion gap [Moles/Vol] 12.2 mmol/L Normal [facility] Comment on above: Performed By: #### C MP #### [facility] [address] [place] [address] Dr. Kenna Thomas AST [Catalytic activity/Vol] 33 U/L Normal 15-37 [facility] Comment on above: Performed By: #### C MP #### [facility] [address] [place] [address] Dr. Kenna Thomas Bilirubin [Mass/Vol] 0.3 mg/dL Normal 0.2-1.0 [facility] Comment on above: Performed By: #### C MP #### [facility] [address] [place] [address] Dr. Kenna Thomas Calcium [Mass/Vol] 9.6 mg/dL Normal 8.5-10.1 [facility] Comment on above: Performed By: #### C MP #### [facility] [address] [place] [address] Dr. Kenna Thomas Chloride [Moles/Vol] 99 mmol/L Normal 98-107 [facility] Comment on above: Performed By: #### C MP #### [facility] [address] [place] [address] Dr. Kenna Thomas CO2 [Moles/Vol] 30.4 mmol/L Normal 21.0-32.0 [facility] Comment on above: Performed By: #### C MP #### [facility] [address] [address] [address] Kenna Thomas Creatinine [Mass/Vol] 1.01 mg/dL Normal 0.70-1.30 [facility] Comment on above: Performed By: #### C MP #### [facility] [address] [address] [address] Kenna Thomas EGFR-AF SLOVENIAN >60 Normal >=60 [facility] Comment on above: Performed By: #### C MP #### [facility] [address] [address] [address] Kenna Thomas EGFR-NON AF SLOVENIAN >60 Normal >=60 [facility] Comment on above: Performed By: #### C MP #### [facility] [address] [place] [address] Dr. Kenna Thomas Globulin (S) [Mass/Vol] 5.2 g/dL Normal [facility] Comment on above: Performed By: #### C MP #### [facility] [address] [address] [address] Kenna Thomas Glucose [Mass/Vol] 208 mg/dL Critically high 74-106 [facility] Comment on above: Performed By: #### C MP #### [facility] [address] [place] [address] Dr. Kenna Thomas Potassium [Moles/Vol] 4.6 mmol/L Normal 3.5-5.1 [facility] Comment on above: Performed By: #### C MP #### [facility] [address] [address] [address] Kenna Thomas Protein [Mass/Vol] 8.6 g/dL Critically high 6.4-8.2 [facility] Comment on above: Performed By: #### C MP #### [facility] [address] [address] [address] Kenna Thomas Sodium [Moles/Vol] 137 mmol/L Normal 136-145 [facility] Comment on above: Performed By: #### C MP #### [facility] [address] [address] [address] Kenna Thomas Urea nitrogen [Mass/Vol] 7.0 mg/dL Normal 7.0-18.0 [facility] Comment on above: Performed By: #### C MP #### [facility] [address] [address] [address] Kenna Thomas Urea nitrogen/Creatinine [Mass ratio] 6.9 mg/mg Normal [facility] Comment on above: Performed By: #### C MP #### [facility] [address] [place] [address] Dr. Kenna Thomas VIT B12 AND FOLATEon 023 Cobalamin (Vitamin B12) [Mass/Vol] 841.0 pg/mL Normal 193.0-986.0 [facility] Comment on above: Performed By: #### B 12FOL #### [facility] [address] [place] [address] Dr. Kenna Thomas FOLATE 17.30 ng/mL Normal 8.60-58.90 [facility] Comment on above: Performed By: #### B 12FOL #### [facility] [address] [place] [address] Dr. Kenna Thomas GLYCOHEMOGLOBIN A1Con 2021 ADA RECOMMENDATION SEE BELOW Normal [facility] Comment on above: Result Comment: ADA RECOMMENDED LIMIT 4.0 - 6.0 ADA THERAPEUTIC TARGET < 7.0 ACTION SUGGESTED > 7.0 Performed By: #### A 1C #### [facility] [address] [place] [address] Dr. Kenna Thomas Glucose [Mass/Vol] 148 mg/dL Normal [facility] Comment on above: Performed By: #### A 1C #### [facility] [address] [place] [address] Dr. Kenna Thomas HbA1c (Bld) [Mass fraction] 6.8 % Critically high 4.5-6.2 [facility] Comment on above: Performed By: #### A 1C #### [facility] [address] [place] [address] Dr. Kenna Thomas CBC AUTO DIFFon 03-24-2022 BASO # 0.1 103/ul Normal 0.0-0.1 [facility] Comment on above: Performed By: #### G ELGIN, LIPID #### [facility] [address] [address] [address] Kenna Thomas Basophils/100 WBC (Bld) 1.0 % Normal 0.2-2.0 [facility] Comment on above: Performed By: #### G ELGIN, LIPID #### [facility] [address] [address] [address] Kenna Thomas EO # 0.5 103/ul Normal 0.0-0.7 [facility] Comment on above: Performed By: #### G ELGIN, LIPID #### [facility] [address] [place] [address] Dr. Kenna Thomas Eosinophils/100 WBC (Bld) 4.0 % Normal 0.9-7.0 [facility] Comment on above: Performed By: #### G ELGIN, LIPID #### [facility] [address] [place] [address] Dr. Kenna Thomas Erythrocyte distribution width (RBC) [Ratio] 12.3 % Normal 11.0-15.0 [facility] Comment on above: Performed By: #### G ELGIN, LIPID #### [facility] [address] [place] [address] Dr. Kenna Thomas Hematocrit (Bld) [Volume fraction] 40.5 % Critically low 42.0-54.0 [facility] Comment on above: Performed By: #### G ELGIN, LIPID #### [facility] [address] [place] [address] Dr. Kenna Thomas Hemoglobin (Bld) [Mass/Vol] 14.4 g/dL Normal 14.0-18.0 [facility] Comment on above: Performed By: #### G ELGIN, LIPID #### [facility] [address] [place] [address] Dr. Kenna Thomas IG # 0.05 10e3/ul Critically high 0.00-0.03 [facility] Comment on above: Performed By: #### G ELGIN, LIPID #### [facility] [address] [address] [address] Kenna Thomas IG % 0.4 % Normal 0.0-0.5 [facility] Comment on above: Performed By: #### G ELGIN, LIPID #### [facility] [address] [address] [address] Kenna Thomas LYMPH # 3.0 103/ul Normal 1.2-3.8 [facility] Comment on above: Performed By: #### G ELGIN, LIPID #### [facility] [address] [address] [address] Kenna Thomas Lymphocytes/100 WBC (Bld) 24.6 % Normal 20.5-60.0 [facility] Comment on above: Performed By: #### G ELGIN, LIPID #### [facility] [address] [address] [address] Kenna Thomas MANUAL DIFF REQ NO Normal [facility] Comment on above: Performed By: #### G ELGIN, LIPID #### [facility] [address] [address] [address] Kenna Thomas MCH (RBC) [Entitic mass] 34.0 pg Normal 25.9-34.0 [facility] Comment on above: Performed By: #### G ELGIN, LIPID #### [facility] [address] [address] [address] Kenna Thomas MCHC (RBC) [Mass/Vol] 35.6 g/dL Critically high 29.9-35.2 [facility] Comment on above: Performed By: #### G ELGIN, LIPID #### [facility] [address] [address] [address] Kenna Thomas MCV (RBC) [Entitic vol] 95.7 fL Critically high 80.0-94.0 [facility] Comment on above: Performed By: #### G ELGIN, LIPID #### [facility] [address] [address] [address] Kenna Thomas MONO # 0.9 103/ul Critically high 0.3-0.[address] [facility] Comment on above: Performed By: #### G ELGIN, LIPID #### [facility] [address] [address] [address] Kenna Thomas Monocytes/100 WBC (Bld) 7.6 % Normal 1.7-12.0 [facility] Comment on above: Performed By: #### G ELGIN, LIPID #### [facility] [address] [address] [address] Kenna Thomas NEUT # 7.5 103/ul Critically high 1.4-6.5 [facility] Comment on above: Performed By: #### G ELGIN, LIPID #### [facility] [address] [address] [address] Kenna Thomas Neutrophils/100 WBC (Bld) 62.4 % Normal 43.0-75.0 [facility] Comment on above: Performed By: #### G ELGIN, LIPID #### [facility] [address] [place] [address] Dr. Kenna Thomas Platelet mean volume (Bld) [Entitic vol] 10.5 fL Normal 9.5-13.5 [facility] Comment on above: Performed By: #### G ELGIN, LIPID #### [facility] [address] [address] [address] Kenna Thomas PLT 219 103/ul Normal 150-450 [facility] Comment on above: Performed By: #### G ELGIN, LIPID #### [facility] [address] [place] [address] Dr. Kenna Thomas RBC 4.23 106/ul Critically low 4.70-6.10 [facility] Comment on above: Performed By: #### G ELGIN, LIPID #### [facility] [address] [address] [address] Kenan Thomas WBC 12.0 103/ul Critically high 4.0-11.0 [facility] Comment on above: Performed By: #### G ELGIN, LIPID #### [facility] [address] [address] [address] Kenna Thomas PROF 14(COMP METB)on 022 Albumin [Mass/Vol] 3.2 g/dL Critically low 3.4-5.0 [facility] Comment on above: Performed By: #### C MP #### [facility] [address] [address] [address] Kenna Thomas Albumin/Globulin [Mass ratio] 0.8 {ratio} Normal [facility] Comment on above: Performed By: #### C MP #### [facility] [address] [address] [address] Kenna Thomas ALP [Catalytic activity/Vol] 167 U/L Critically high 46-116 [facility] Comment on above: Performed By: #### C MP #### [facility] [address] [address] [address] Kenna Thomas ALT [Catalytic activity/Vol] 30 U/L Normal 16-63 [facility] Comment on above: Performed By: #### C MP #### [facility] [address] [place] [address] Dr. Kenna Thomas Anion gap [Moles/Vol] 12.0 mmol/L Normal Th [facility] Comment on above: Performed By: #### C MP #### [facility] [address] [place] [address] Dr. Kenna Thomas AST [Catalytic activity/Vol] 12 U/L Critically low 15-37 [facility] Comment on above: Performed By: #### C MP #### [facility] [address] [place] [address] Dr. Kenna hTomas Bilirubin [Mass/Vol] 0.2 mg/dL Normal 0.2-1.0 [facility] Comment on above: Performed By: #### C MP #### [facility] [address] [place] [address] Dr. Kenna Thomas Calcium [Mass/Vol] 8.2 mg/dL Critically low 8.5-10.1 [facility] Comment on above: Performed By: #### C MP #### [facility] [address] [place] [address] Dr. Kenna Thomas Chloride [Moles/Vol] 102 mmol/L Normal 98-107 [facility] Comment on above: Performed By: #### C MP #### [facility] [address] [address] [address] Kenna Thomas CO2 [Moles/Vol] 24.3 mmol/L Normal 21.0-32.0 [facility] Comment on above: Performed By: #### C MP #### [facility] [address] [address] [address] Kenna Thomas Creatinine [Mass/Vol] 1.03 mg/dL Normal 0.70-1.30 [facility] Comment on above: Performed By: #### C MP #### [facility] [address] [address] [address] Kenna Thomas EGFR-AF SLOVENIAN >60 Normal >=60 [facility] Comment on above: Performed By: #### C MP #### [facility] [address] [address] [address] Kenna Thomas EGFR-NON AF SLOVENIAN >60 Normal >=60 [facility] Comment on above: Performed By: #### C MP #### [facility] [address] [address] [address] Kenna Thomas Globulin (S) [Mass/Vol] 3.8 g/dL Normal [facility] Comment on above: Performed By: #### C MP #### [facility] [address] [address] [address] Kenna Thomas Glucose [Mass/Vol] 258 mg/dL Critically high 74-106 [facility] Comment on above: Performed By: #### C MP #### [facility] [address] [address] [address] Kenna Thomas Potassium [Moles/Vol] 3.3 mmol/L Critically low 3.5-5.1 [facility] Comment on above: Performed By: #### C MP #### [facility] [address] [address] [address] Kenna Thomas Protein [Mass/Vol] 7.0 g/dL Normal 6.4-8.2 [facility] Comment on above: Performed By: #### C MP #### [facility] [address] [address] [address] Kenna Thomas Sodium [Moles/Vol] 135 mmol/L Critically low 136-145 Th e [facility] Comment on above: Performed By: #### C MP #### [facility] [address] [address] [address] Kenna Thomas Urea nitrogen [Mass/Vol] 8.0 mg/dL Normal 7.0-18.0 [facility] Comment on above: Performed By: #### C MP #### [facility] [address] [address] [address] Kenna Thomas Urea nitrogen/Creatinine [Mass ratio] 7.8 mg/mg Normal [facility] Comment on above: Performed By: #### C MP #### [facility] [address] [address] [address] Kenna Thomas XR ABD FLAT UP_PA [...] PERICO DIAMOND Date: 2022-03-24 01:01 Normal [facility] CBC AUTO DIFFon 03-11-2022 BASO # 0.1 103/ul Normal 0.0-0.1 [facility] Comment on above: Performed By: #### G ELGIN, LIPID #### [facility] [address] [address] [address] Kenna Thomas Basophils/100 WBC (Bld) 1.1 % Normal 0.2-2.0 [facility] Comment on above: Performed By: #### G ELGIN, LIPID #### [facility] [address] [place] [address] Dr. Kenna Thomas EO # 0.6 103/ul Normal 0.0-0.7 [facility] Comment on above: Performed By: #### G ELGIN, LIPID #### [facility] [address] [place] [address] Dr. Kenna Thomas Eosinophils/100 WBC (Bld) 5.3 % Normal 0.9-7.0 [facility] Comment on above: Performed By: #### G ELGIN, LIPID #### [facility] [address] [place] [address] Dr. Kenna Thomas Erythrocyte distribution width (RBC) [Ratio] 12.0 % Normal 11.0-15.0 [facility] Comment on above: Performed By: #### G ELGIN, LIPID #### [facility] [address] [place] [address] Dr. Kenna Thomas Hematocrit (Bld) [Volume fraction] 41.8 % Critically low 42.0-54.0 [facility] Comment on above: Performed By: #### G ELGIN, LIPID #### [facility] [address] [place] [address] Dr. Kenna Thomas Hemoglobin (Bld) [Mass/Vol] 14.7 g/dL Normal 14.0-18.0 [facility] Comment on above: Performed By: #### G ELGIN, LIPID #### [facility] [address] [place] [address] Dr. Kenna Thomas IG # 0.07 10e3/ul Critically high 0.00-0.03 [facility] Comment on above: Performed By: #### G ELGIN, LIPID #### [facility] [address] [place] [address] Dr. Kenna Thomas IG % 0.6 % Critically high 0.0-0.5 [facility] Comment on above: Performed By: #### G ELGIN, LIPID #### [facility] [address] [place] [address] Dr. Kenna Thomas LYMPH # 2.4 103/ul Normal 1.2-3.8 [facility] Comment on above: Performed By: #### G ELGIN, LIPID #### [facility] [address] [place] [address] Dr. Kenna Thomas Lymphocytes/100 WBC (Bld) 21.2 % Normal 20.5-60.0 [facility] Comment on above: Performed By: #### G ELGIN, LIPID #### [facility] [address] [place] [address] Dr. Kenna Thomas MANUAL DIFF REQ NO Normal [facility] Comment on above: Performed By: #### G ELGIN, LIPID #### [facility] [address] [place] [address] Dr. Kenna Thomas MCH (RBC) [Entitic mass] 33.1 pg Normal 25.9-34.0 [facility] Comment on above: Performed By: #### G ELGIN, LIPID #### [facility] [address] [place] [address] Dr. Kenna Thomas MCHC (RBC) [Mass/Vol] 35.2 g/dL Normal 29.9-35.2 [facility] Comment on above: Performed By: #### G ELGIN, LIPID #### [facility] [address] [place] [address] Dr. Kenna Thomas MCV (RBC) [Entitic vol] 94.1 fL Critically high 80.0-94.0 [facility] Comment on above: Performed By: #### G ELGIN, LIPID #### [facility] [address] [place] [address] Dr. Kenna Thomas MONO # 0.9 103/ul Critically high 0.3-0.[address] [facility] Comment on above: Performed By: #### G ELGIN, LIPID #### [facility] [address] [place] [address] Dr. Kenna Thomas Monocytes/100 WBC (Bld) 8.3 % Normal 1.7-12.0 [facility] Comment on above: Performed By: #### G ELGIN, LIPID #### [facility] [address] [address] [address] Kenna Thomas NEUT # 7.1 103/ul Critically high 1.4-6.[address] [facility] Comment on above: Performed By: #### G ELGIN, LIPID #### [facility] [address] [address] [address] Kenna Thomas Neutrophils/100 WBC (Bld) 63.5 % Normal 43.0-75.0 [facility] Comment on above: Performed By: #### G ELGIN, LIPID #### [facility] [address] [address] [address] Kenna Thomas Platelet mean volume (Bld) [Entitic vol] 9.9 fL Normal 9.5-13.5 [facility] Comment on above: Performed By: #### G ELGIN, LIPID #### [facility] [address] [place] [address] Dr. Kenna Thomas PLT 230 103/ul Normal 150-450 [facility] Comment on above: Performed By: #### G ELGIN, LIPID #### [facility] [address] [place] [address] Dr. Kenna Thomas RBC 4.44 106/ul Critically low 4.70-6.[address] [facility] Comment on above: Performed By: #### G ELGIN, LIPID #### [facility] [address] [address] [address] Kenna Thomas WBC 11.2 103/ul Critically high 4.0-11.0 [facility] Comment on above: Performed By: #### G ELGIN, LIPID #### [facility] [address] [place] [address] Dr. Kenna Thomas LACTATE/LACTIC ACIDon 2021 Lactate [Moles/Vol] 2.0 mmol/L Critically high 0.4-1.9 [facility] Comment on above: Performed By: #### L ACT #### [facility] [address] [place] [address] Dr. Kenna Thomas MAGNESIUMon 03-11-2022 Magnesium [Mass/Vol] 1.7 mg/dL Critically low 1.8-2.4 [facility] Comment on above: Performed By: #### G ELGIN, LIPID #### [facility] [address] [address] [address] Kenna Thomas PROF 14(COMP METB)on 022 Albumin [Mass/Vol] 3.3 g/dL Critically low 3.4-5.0 [facility] Comment on above: Performed By: #### G ELGIN, LIPID #### [facility] [address] [place] [address] Dr. Kenna Thomas Albumin/Globulin [Mass ratio] 0.8 {ratio} Normal [facility] Comment on above: Performed By: #### G ELGIN, LIPID #### [facility] [address] [place] [address] Dr. Kenna Thomas ALP [Catalytic activity/Vol] 156 U/L Critically high 46-116 [facility] Comment on above: Performed By: #### G ELGIN, LIPID #### [facility] [address] [place] [address] Dr. Kenna Thomas ALT [Catalytic activity/Vol] 28 U/L Normal 16-63 [facility] Comment on above: Performed By: #### G ELGIN, LIPID #### [facility] [address] [place] [address] Dr. Kenna Thomas Anion gap [Moles/Vol] 15.0 mmol/L Normal [facility] Comment on above: Performed By: #### G ELGIN, LIPID #### [facility] [address] [place] [address] Dr. Kenna Thomas AST [Catalytic activity/Vol] 20 U/L Normal 15-37 [facility] Comment on above: Performed By: #### G ELGIN, LIPID #### [facility] [address] [place] [address] Dr. Kenna Thomas Bilirubin [Mass/Vol] 0.5 mg/dL Normal 0.2-1.0 [facility] Comment on above: Performed By: #### G ELGIN, LIPID #### [facility] [address] [place] [address] Dr. Kenna Thomas Calcium [Mass/Vol] 9.0 mg/dL Normal 8.5-10.1 [facility] Comment on above: Performed By: #### G ELGIN, LIPID #### [facility] [address] [place] [address] Dr. Kenna Thomas Chloride [Moles/Vol] 100 mmol/L Normal 98-107 [facility] Comment on above: Performed By: #### G ELGIN, LIPID #### [facility] [address] [place] [address] Dr. Kenna Thomas CO2 [Moles/Vol] 25.6 mmol/L Normal 21.0-32.0 [facility] Comment on above: Performed By: #### G ELGIN, LIPID #### [facility] [address] [place] [address] Dr. Kenna Thomas Creatinine [Mass/Vol] 0.83 mg/dL Normal 0.70-1.30 [facility] Comment on above: Performed By: #### G ELGIN, LIPID #### [facility] [address] [place] [address] Dr. Kenna Thomas EGFR-AF SLOVENIAN >60 Normal >=60 [facility] Comment on above: Performed By: #### G ELGIN, LIPID #### [facility] [address] [place] [address] Dr. Kenna Thomas EGFR-NON AF SLOVENIAN >60 Normal >=60 [facility] Comment on above: Performed By: #### G ELGIN, LIPID #### [facility] [address] [place] [address] Dr. Kenna Thomas Globulin (S) [Mass/Vol] 4.0 g/dL Normal [facility] Comment on above: Performed By: #### G ELGIN, LIPID #### [facility] [address] [place] [address] Dr. Kenna Thomas Glucose [Mass/Vol] 170 mg/dL Critically high 74-106 [facility] Comment on above: Performed By: #### G ELGIN, LIPID #### [facility] [address] [place] [address] Dr. Kenna Thomas Potassium [Moles/Vol] 3.6 mmol/L Normal 3.5-5.1 [facility] Comment on above: Performed By: #### G ELGIN, LIPID #### [facility] [address] [address] [address] Kenna Thomas Protein [Mass/Vol] 7.3 g/dL Normal 6.4-8.2 [facility] Comment on above: Performed By: #### G ELGIN, LIPID #### [facility] [address] [address] [address] Kenna Thomas Sodium [Moles/Vol] 137 mmol/L Normal 136-145 [facility] Comment on above: Performed By: #### G ELGIN, LIPID #### [facility] [address] [address] [address] Kenna Thomas Urea nitrogen [Mass/Vol] 10.0 mg/dL Normal 7.0-18.0 [facility] Comment on above: Performed By: #### G ELGIN, LIPID #### [facility] [address] [address] [address] Kenna Thomas Urea nitrogen/Creatinine [Mass ratio] 12.0 mg/mg Normal [facility] Comment on above: Performed By: #### G ELGIN, LIPID #### [facility] [address] [address] [address] Kenna Thomas GLYCOHEMOGLOBIN A1Con 2021 ADA RECOMMENDATION SEE BELOW Normal [facility] Comment on above: Result Comment: ADA RECOMMENDED LIMIT 4.0 - 6.0 ADA THERAPEUTIC TARGET < 7.0 ACTION SUGGESTED > 7.0 Performed By: #### G ELGIN, LIPID #### [facility] [address] [place] [address] Dr. Kenna Thomas Glucose [Mass/Vol] 154 mg/dL Normal [facility] Comment on above: Performed By: #### G ELGIN, LIPID #### [facility] [address] [address] [address] Kenna Thomas HbA1c (Bld) [Mass fraction] 7.0 % Critically high 4.5-6.2 [facility] Comment on above: Performed By: #### G ELGIN, LIPID #### [facility] [address] [address] [address] Kenna Thomas LIPID PROFILEon 01-09-2022 CHOL-HDL RATIO NORM SEE BELOW Normal [facility] Comment on above: Result Comment: 3.3 - 4.4 LOW RISK 4.4 - 7.1 AVERAGE RISK 7.1 - 11.0 MODERATE RISK >11.0 HIGH RISK Performed By: #### L IPID #### [facility] [address] [address] [address] Kenna Thomas Cholesterol [Mass/Vol] 186 mg/dL Normal <=200 [facility] Comment on above: Performed By: #### L IPID #### [facility] [address] [address] [address] Kenna Thomas Cholesterol in HDL [Mass/Vol] 31 mg/dL Critically low 40-60 [facility] Comment on above: Performed By: #### L IPID #### [facility] [address] [address] [address] Kenna Thomas Cholesterol in LDL [Mass/Vol] 91.2 mg/dL Normal [facility] Comment on above: Performed By: #### L IPID #### [facility] [address] [address] [address] Kenna Thomas Cholesterol.total/Cho lesterol in HDL [Mass ratio] 6.0 {ratio} Normal [facility] Comment on above: Performed By: #### L IPID #### [facility] [address] [address] [address] Kenna Thomas HDL NORMAL > or = 60 mg/dl - LO W CARDIOVASCULAR RISK <40 mg/dl - HIGH CARDIOVASCULAR RISK Normal [facility] Comment on above: Performed By: #### L IPID #### [facility] [address] [address] [address] Kenna Thomas LDL CALC NORMAL SEE BELOW Normal [facility] Comment on above: Result Comment: <100 mg/dl OPTIMAL 100 - 129 mg/dl NEAR OR ABOVE OPTIMAL 130 - 159 mg/dl BORDERLINE HIGH 160 - 189 mg/dl HIGH >190 mg/dl VERY HIGH Performed By: #### L IPID #### [facility] [address] [address] [address] Kenna Thomas Triglyceride [Mass/Vol] 319 mg/dL Critically high <=150 [facility] Comment on above: Performed By: #### L IPID #### [facility] [address] [address] [address] Kenna Thomas VLDL CALC 63.8 mg/dL Normal [facility] Comment on above: Performed By: #### L IPID #### [facility] [address] [address] [address] Kenna Thomas TESTOSTERONE, TOTALon 2021 Testosterone [Mass/Vol] 447 ng/dL Normal 264-916 [facility] Comment on above: Result Comment: Adul t male reference interval is based on a population of healthy nonobese males (BMI <30) between 19 and 39 years old. brady Camacho.al. JCEM 2017,102;5296-9433. PMID: [id number]. Performed By: #### T ESTTOT #### [facility] [address] [place] [address] Dr. Kenna Thomas GLUCOSE BLOODon 12-08-2021 Glucose [Mass/Vol] 147 mg/dL Critically high 74-106 [facility] Comment on above: Performed By: #### G ELGIN, LIPID #### [facility] [address] [place] [address] Dr. Kenna Thomas LIPID PROFILEon 12-08-2021 CHOL-HDL RATIO NORM SEE BELOW Normal [facility] Comment on above: Result Comment: 3.3 - 4.4 LOW RISK 4.4 - 7.1 AVERAGE RISK 7.1 - 11.0 MODERATE RISK >11.0 HIGH RISK Performed By: #### G ELGIN, LIPID #### [facility] [address] [place] [address] Dr. Kenna Thomas Cholesterol [Mass/Vol] 140 mg/dL Normal <=200 [facility] Comment on above: Performed By: #### G ELGIN, LIPID #### [facility] [address] [place] [address] Dr. Kenna Thomas Cholesterol in HDL [Mass/Vol] 33 mg/dL Critically low 40-60 [facility] Comment on above: Performed By: #### G ELGIN, LIPID #### [facility] [address] [address] [address] Kenna Thomas Cholesterol in LDL [Mass/Vol] 55.4 mg/dL Normal [facility] Comment on above: Performed By: #### G ELGIN, LIPID #### [facility] [address] [address] [address] Kenna Thomas Cholesterol.total/Cho lesterol in HDL [Mass ratio] 4.2 {ratio} Normal [facility] Comment on above: Performed By: #### G ELGIN, LIPID #### [facility] [address] [address] [address] Kenna Thomas HDL NORMAL > or = 60 mg/dl - LO W CARDIOVASCULAR RISK <40 mg/dl - HIGH CARDIOVASCULAR RISK Normal [facility] Comment on above: Performed By: #### G ELGIN, LIPID #### [facility] [address] [address] [address] Kenna Thomas LDL CALC NORMAL SEE BELOW Normal [facility] Comment on above: Result Comment: <100 mg/dl OPTIMAL 100 - 129 mg/dl NEAR OR ABOVE OPTIMAL 130 - 159 mg/dl BORDERLINE HIGH 160 - 189 mg/dl HIGH >190 mg/dl VERY HIGH Performed By: #### G ELGIN, LIPID #### [facility] [address] [address] [address] Kenna Thomas Triglyceride [Mass/Vol] 258 mg/dL Critically high <=150 [facility] Comment on above: Performed By: #### G ELGIN, LIPID #### [facility] [address] [address] [address] Kenna Thomas VLDL CALC 51.6 mg/dL Normal [facility] Comment on above: Performed By: #### G ELGIN, LIPID #### [facility] [address] [address] [address] Kenna Thomas Comp Metabolic Profon 2016 (cont.) Normal [facility] Comment on above: Result Comment: Aver age GFR for 40-49 years old: 99 mL/min/1.73sq mChronic Kidney Disease: <60 mL/min/1.73sq mKidney failure: <15 mL/min/1.73sq meGFR calculated using average adult body mass. Additional eGFR calculator available at:http://www.[employer].Nival/multiple_crcl_2012.htmPerformed at [address] [address] Performed By: #### C P ####[address] [address] Alanine aminotransferase (ALT) 27 U/L Normal 5-41 [facility] Comment on above: Performed By: #### C P ####[address] [address] Albumin 3.7 g/dL Normal 3.5-5.2 [facility] Comment on above: Performed By: #### C P ####[address] [address] Albumin/Globulin Ratio 1.1 {ratio} Normal 1.0-2.5 [facility] Comment on above: Performed By: #### C P ####[address] [address] Alkaline Phos 125 U/L Normal 40-129 [facility] Comment on above: Performed By: #### C P ####[address] [address] Anion gap 14 mmol/L Normal 9-17 [facility] Comment on above: Performed By: #### C P ####[address] [address] Aspartate aminotransferase (AST) 20 U/L Normal <40 [facility] Comment on above: Performed By: #### C P ####[address] [address] Bilirubin Ql (U) 0.28 mg/dL Low 0.3-1.2 [facility] Comment on above: Performed By: #### C P ####[facility] [place] [address] Calcium 9.0 mg/dL Normal 8.6-10.4 [facility] Comment on above: Performed By: #### C P ####[address] [address] Chloride 98 mmol/L Normal 98-107 [facility] Comment on above: Performed By: #### C P ####[address] [address] CO2 27 mmol/L Normal 20-31 [facility] Comment on above: Performed By: #### C P ####[address] [address] Creatinine 0.74 mg/dL Normal 0.70-1.20 [facility] Comment on above: Performed By: #### C P ####[address] [address] eGFR (non-black) mL/min/{1.73_m2} Normal >60 [facility] Comment on above: Performed By: #### C P ####[address] [address] Glucose mass conc 142 mg/dL High 70-99 [facility] Comment on above: Performed By: #### C P ####[address] [address] Potassium molar conc 4.2 mmol/L Normal 3.7-5.3 [facility] Comment on above: Performed By: #### C P ####[address] [address] Protein 7.0 g/dL Normal 6.4-8.3 [facility] Comment on above: Performed By: #### C P ####[address] [address] Sodium 139 mmol/L Normal 135-144 [facility] Comment on above: Performed By: #### C P ####[address] [address] Urea nitrogen 9 mg/dL Normal 6-20 [facility] Comment on above: Performed By: #### C P ####[address] [address] BUN/CRE Ratio NOT REPORTED Normal 9-20 [facility] Comment on above: Performed By: #### C P ####[address] [address] Staging: NOT REPORTED Normal [facility] Comment on above: Performed By: #### C P ####[address] [address] Drug Scr, Abuse, Uron 2016 Amphetamine(s),Ur Negative Normal NEG [facility] Comment on above: Result Comment: (Pos itive cutoff 1000 ng/mL) Performed By: #### KOMAL Hays DAU ####[facility] [place] [address] Barbiturate(s),Ur Negative Normal NEG [facility] Comment on above: Result Comment: (Pos itive cutoff 200 ng/mL) Performed By: #### KOMAL Hays DAU ####[facility] [place] [address] Base excess Negative Normal NEG [facility] Comment on above: Result Comment: (Pos itive cutoff 300 ng/mL) Performed By: #### KOMAL Hays DAU ####[facility] [place] [address] Benzodiazepine(s) Negative Normal NEG [facility] Comment on above: Result Comment: (Pos itive cutoff 200 ng/mL) Performed By: #### KOMAL Hays DAU ####[address] [address] Cannabinoid(s),Ur Negative Normal NEG [facility] Comment on above: Result Comment: (Pos itive cutoff 50 ng/mL) Performed By: #### KOMAL Hays DAU ####[address] [address] Interpretive Info Assay provides medical screening only. The absence of expected drug(s) and/or Normal [facility] Comment on above: Result Comment: meta bolite(s) may indicate diluted or adulterated urine, limitations of testing or timing of collection.Testing for legal purposes should be confirmed by another method. To request confirmation of test result, please call the lab within 7 days of sample submission.Performed at [address] [address] Performed By: #### KOMAL Hays DAU ####[address] [address] Opiate(s), Ur Negative Normal NEG [facility] Comment on above: Result Comment: (Pos itive cutoff 300 ng/mL) Performed By: #### KOMAL Hays DAU ####[address] [address] Oxycodone, Urine Negative Normal NEG [facility] Comment on above: Result Comment: (Pos itive cutoff 100 ng/mL) Performed By: #### KOMAL Hays DAU ####[address] [address] Phencyclidine, Ur Negative Normal NEG [facility] Comment on above: Result Comment: (Pos itive cutoff 25 ng/mL) Performed By: #### YARON HaysICAO, YAZMIN ####[address] [address] Urine, methadone presence Negative Normal NEG [facility] Comment on above: Result Comment: (Pos itive cutoff 300 ng/mL) Performed By: #### U A, UMICAO, YAZMIN ####[address] [address] Buprenorphrine, Ur NOT REPORTED Normal NEG [facility] Comment on above: Performed By: #### U A, UMICAO, YAZMIN ####[address] [address] MDMA, Urine NOT REPORTED Normal NEG [facility] Comment on above: Performed By: #### U A, UMICAO, YAZMIN ####[address] [address] Methamphetamine, Ur NOT REPORTED Normal NEG [facility] Comment on above: Performed By: #### U A, PRAVEENO, YAZMIN ####[address] [address] Propoxyphene,Urine NOT REPORTED Normal NEG [facility] Comment on above: Performed By: #### U A, UMICAO, YAZMIN ####[address] [address] Urine, tricyclic antidepressants NOT REPORTED Normal NEG [facility] Comment on above: Performed By: #### U A, UMICAO, YAZMIN ####[address] [address] Urinalysis, Routineon 2016 Acetaminophen mass conc Negative Normal NEG [facility] Comment on above: Performed By: #### U A, UMICAO, YAZMIN ####[address] [place] [address] Bilirubin (direct) Negative Normal NEG [facility] Comment on above: Performed By: #### U KOMAL Pride, YAZMIN ####[address] [place] [address] Hemoglobin mass conc (Bld) TRACE Abnormal NEG [facility] Comment on above: Performed By: #### U AKOMAL, YAZMIN ####[address] [place] [address] Nitrite,Ur Negative Normal NEG [facility] Comment on above: Performed By: #### U A, KOMAL, YAZMIN ####[address] [place] [address] Turbidity CLEAR Normal CLEAR [facility] Comment on above: Performed By: #### U AKOMAL, YAZMIN ####[facility] [place] [address], [place] [address] Urine, color YELLOW Normal YEL [facility] Comment on above: Performed By: #### U A, KOMAL, YAZMIN ####[address] [place] [address] Urine, glucose presence Negative Normal NEG [facility] Comment on above: Performed By: #### U AKOMAL, YAZMIN ####[address] [place] [address] Urine, leukocyte esterase presence Negative Normal NEG [facility] Comment on above: Result Comment: Perf ormed at [facility] [address] [place] [address] Performed By: #### U A, UMICAO, YAZMIN ####[address] [place] [address] Urine, pH 6.0 [pH] Normal 5.0-8.0 [facility] Comment on above: Performed By: #### KOMAL Hays DAU ####[address] [address] Urine, protein presence Negative Normal NEG [facility] Comment on above: Performed By: #### KOMAL Hays DAU ####[address] [address] Urine, specific gravity 1.007 Normal 1.000-1.030 [facility] Comment on above: Performed By: #### KOMAL Hays DAU ####[address] [address] Urobilinogen,Ur Normal Normal NORM [facility] Comment on above: Performed By: #### KOMAL Hays DAU ####[address] [address] Comment NOT REPORTED Normal [facility] Comment on above: Performed By: #### KOMAL Hays DAU ####[address] [address] Urinalysis,Microon 7 ----- Normal [facility] Comment on above: Performed By: #### KOMAL Hays DAU ####[address] [address] Urine WBC's 0 TO 2 Normal [facility] Comment on above: Performed By: #### KOMAL Hays DAU ####[address] [address] Urine, bacteria in sediment FEW Abnormal NONE [facility] Comment on above: Result Comment: Perf ormed at [facility] [address] [place] [address] Performed By: #### KOMAL Hays DAU ####[facility] [facility] [place] [address] Urine, epithelial cells in sediment 0 TO 2 Normal [facility] Comment on above: Performed By: #### KOMAL Hays DAU ####[facility] [place] [address] [place] [address] Urine, erythrocytes 2 TO 5 Normal [facility] Comment on above: Performed By: #### KOMAL Hays DAU ####[facility] [facility] [address] Epithelial, Renal NOT REPORTED Normal 0 [facility] Comment on above: Performed By: #### KOMAL Hays DAU ####[facility] [place] [address], [place] [address] Mucus Strands NOT REPORTED Normal NONE [facility] Comment on above: Performed By: #### KOMAL Hays DAU ####[facility] [facility] [place] [address] Other Observations NOT REPORTED Normal NREQ [facility] Comment on above: Performed By: #### KOMAL Hays DAU ####[facility] [place] [address] [place] [address] Trichomonas NOT REPORTED Normal NONE [facility] Comment on above: Performed By: #### KOMAL Hays DAU ####[facility] [place] [address] [place] [address] Urine, amorphous sediment presence in sediment NOT REPORTED Normal NONE [facility] Comment on above: Performed By: #### KOMAL Hays DAU ####[facility] [place] [address] Urine, casts in sediment NOT REPORTED Normal [facility] Comment on above: Performed By: #### U KOMAL Pride DAU ####[facility] [place] [address] Urine, crystals in sediment NOT REPORTED Normal NONE [facility] Comment on above: Performed By: #### KOMAL Hays DAU ####[address] [address] Urine, yeast presence in sediment NOT REPORTED Normal NONE [facility] Comment on above: Performed By: #### KOMAL Hays DAU ####[address] [address] CBC with Diffon 01-30-2017 Abs. Basophil 0.10 k/uL Normal 0.0-0.2 [facility] Comment on above: Result Comment: Perf ormed at [facility] [address] [place] [address] Performed By: #### C DP, CP ####[address] [address] Abs.Neutrophil (Seg) 5.40 k/uL Normal 1.3-9.1 [facility] Comment on above: Performed By: #### C DP, CP ####[address] [address] Basophils/100 WBC Auto (Bld) 1 % Normal [facility] Comment on above: Performed By: #### C DP, CP ####[address] [address] Eosinophils 0.40 10*3/uL Normal 0.0-0.4 [facility] Comment on above: Performed By: #### C DP, CP ####[facility] [place] [address] Eosinophils/100 leukocytes 5 % Normal [facility] Comment on above: Performed By: #### C DP, CP ####[facility] [place] [address].[place] [address] Erythrocyte distribution width Auto Ratio (RBC) 13.0 % Normal 11.5-14.9 [facility] Comment on above: Performed By: #### C DP, CP ####[facility] [place] [address].[place] [address] Erythrocytes (RBC) 4.26 10*6/uL Low 4.5-5.9 [facility] Comment on above: Performed By: #### C DP, CP ####[facility] [place] [address].[place] [address] Hematocrit (HCT) 42.3 % Normal 41-53 [facility] Comment on above: Performed By: #### C DP, CP ####[facility] [place] [address].[place] [address] Hemoglobin mass conc (Bld) 14.5 g/dL Normal 13.5-17.5 [facility] Comment on above: Performed By: #### C DP, CP ####[facility] [place] [address].[place] [address] Lymphocytes 2.20 10*3/uL Normal 1.0-4.8 [facility] Comment on above: Performed By: #### C DP, CP ####[address] [place] [address] Lymphocytes/100 leukocytes 25 % Normal [facility] Comment on above: Performed By: #### C DP, CP ####[address] [place] [address] MCH 34.0 pg Normal 26-34 [facility] Comment on above: Performed By: #### C DP, CP ####[facility] [place] [address] MCHC mass conc (RBC) 34.2 g/dL Normal 31-37 [facility] Comment on above: Performed By: #### C DP, CP ####[facility] [place] [address] MCV 99.3 fL Normal 80-100 [facility] Comment on above: Performed By: #### C DP, CP ####[facility] [place] [address] Monocytes 0.60 10*3/uL Normal 0.1-1.3 [facility] Comment on above: Performed By: #### C DP, CP ####[facility] [place] [address] Monocytes/100 leukocytes 7 % Normal [facility] Comment on above: Performed By: #### C DP, CP ####[facility] [place] [address] Neutrophil (Seg) 62 % Normal [facility] Comment on above: Performed By: #### C DP, CP ####[facility] [place] [address] Platelet mean volume (PMV) 9.1 fL Normal 6.0-12.0 [facility] Comment on above: Performed By: #### C DP, CP ####[facility] [place] [address] Platelets 225 10*3/uL Normal 150-450 [facility] Comment on above: Performed By: #### C DP, CP ####[facility] [place] [address] WBC (Leukocytes) 8.7 10*3/uL Normal 3.5-11.0 [facility] Comment on above: Performed By: #### C DP, CP ####[facility] [facility] [place] [address] Auto Diff Performed NOT REPORTED Normal [facility] Comment on above: Performed By: #### C DP, CP ####[facility] [place] [address] Erythrocyte morphology NOT REPORTED Normal [facility] Comment on above: Performed By: #### C DP, CP ####[address] [address] Platelets NOT REPORTED Normal [facility] Comment on above: Performed By: #### C DP, CP ####[address] [address] WBC Morphology NOT REPORTED Normal [facility] Comment on above: Performed By: #### C DP, CP ####[address] [address] Comp Metabolic Profon 2016 (cont.) Normal [facility] Comment on above: Result Comment: Aver age GFR for 40-49 years old: 99 mL/min/1.73sq mChronic Kidney Disease: <60 mL/min/1.73sq mKidney failure: <15 mL/min/1.73sq meGFR calculated using average adult body mass. Additional eGFR calculator available at:http://www.[employer].com/multiple_crcl_2012.htmPerformed at [facility] [address] [place] [address] Performed By: #### C DP, CP ####[address] [address] Alanine aminotransferase (ALT) 20 U/L Normal 5-41 [facility] Comment on above: Performed By: #### C DP, CP ####[facility] [place] [address] Albumin 3.3 g/dL Low 3.5-5.2 [facility] Comment on above: Performed By: #### C DP, CP ####[facility] [place] [address] [place] [address] Alkaline Phos 120 U/L Normal 40-129 [facility] Comment on above: Performed By: #### C DP, CP ####[facility] [place] [address] [place] [address] Anion gap 12 mmol/L Normal 9-17 [facility] Comment on above: Performed By: #### C DP, CP ####[facility] [facility] [place] [address] Aspartate aminotransferase (AST) 26 U/L Normal <40 [facility] Comment on above: Performed By: #### C DP, CP ####[facility] [facility] [place] [address] Bilirubin Ql (U) 0.29 mg/dL Low 0.3-1.2 [facility] Comment on above: Performed By: #### C DP, CP ####[facility] [place] [address] [place] [address] Calcium 8.4 mg/dL Low 8.6-10.4 [facility] Comment on above: Performed By: #### C DP, CP ####[facility] [place] [address] [place] [address] Chloride 104 mmol/L Normal 98-107 [facility] Comment on above: Performed By: #### C DP, CP ####[facility] [place] [address] CO2 27 mmol/L Normal 20-31 [facility] Comment on above: Performed By: #### C DP, CP ####[facility] [place] [address].[place] [address] Creatinine 0.70 mg/dL Normal 0.70-1.20 [facility] Comment on above: Performed By: #### C DP, CP ####[facility] [place] [address] eGFR (non-black) mL/min/{1.73_m2} Normal >60 [facility] Comment on above: Performed By: #### C DP, CP ####[facility] [place] [address] Glucose mass conc 117 mg/dL High 70-99 [facility] Comment on above: Performed By: #### C DP, CP ####[facility] [place] [address] Potassium molar conc 3.1 mmol/L Low 3.7-5.3 [facility] Comment on above: Performed By: #### C DP, CP ####[facility] [place] [address] Protein 6.2 g/dL Low 6.4-8.3 [facility] Comment on above: Performed By: #### C DP, CP ####[address] [address] Sodium 143 mmol/L Normal 135-144 [facility] Comment on above: Performed By: #### C DP, CP ####[facility] [place] [address].[place] [address] Urea nitrogen 5 mg/dL Low 6-20 [facility] Comment on above: Performed By: #### C DP, CP ####[facility] [place] [address] Albumin/Globulin Ratio NOT REPORTED Normal 1.0-2.5 [facility] Comment on above: Performed By: #### C DP, CP ####[facility] [place] [address] BUN/CRE Ratio NOT REPORTED Normal 9-20 [facility] Comment on above: Performed By: #### C DP, CP ####[facility] [place] [address] Staging: NOT REPORTED Normal [facility] Comment on above: Performed By: #### C DP, CP ####[facility] [place] [address] Vital Signs Date Time Vital Sign Value Performing Clinician Facility 12-01-2024 09:02-0400 Body height 170.2 cm Horace Rollins MD Work Phone: [facility] 12-01-2024 09:02-0400 Body mass index (BMI) [Ratio] 43.38 kg/m2 Horace Rollins MD Work Phone: [facility] 12-01-2024 09:02-0400 Body temperature 97.11 [degF] Horace Rollins MD Work Phone: [facility] 12-01-2024 09:02-0400 Body weight 125.65 kg Horace Rollins MD Work Phone: [facility] 12-01-2024 09:02-0400 Diastolic blood pressure 70 mm[Hg] Horace Rollins MD Work Phone: [facility] 12-01-2024 09:02-0400 Heart rate 97 /min Horace Rollins MD Work Phone: [facility] 12-01-2024 09:02-0400 Respiratory rate 18 /min Horace Rollins MD Work Phone: [facility] 12-01-2024 09:02-0400 SaO2% (BldA) [Mass fraction] 99 % Horace Rollins MD Work Phone: [facility] 12-01-2024 09:02-0400 Systolic blood pressure 142 mm[Hg] Horace Rollins MD Work Phone: [facility] 08-19-2024 09:30-0500 Body height 170.2 cm Ashanti López PRETZEL COOKER Work Phone: [facility] 08-19-2024 09:30-0500 Body mass index (BMI) [Ratio] 38.53 kg/m2 Ashanti López PRETZEL COOKER Work Phone: [facility] 08-19-2024 09:30-0500 Body temperature 96.3 [degF] Ashanti López PRETZEL COOKER Work Phone: [facility] 08-19-2024 09:30-0500 Body weight 111.58 kg Ashanti López PRETZEL COOKER Work Phone: [facility] 08-19-2024 09:30-0500 Diastolic blood pressure 68 mm[Hg] Ashanti López PRETZEL COOKER Work Phone: [facility] 08-19-2024 09:30-0500 Heart rate 101 /min Ashanti López PRETZEL COOKER Work Phone: [facility] 08-19-2024 09:30-0500 Respiratory rate 16 /min Ashanti López PRETZEL COOKER Work Phone: [facility] 08-19-2024 09:30-0500 SaO2% (BldA) [Mass fraction] 96 % Ashanti López PRETZEL COOKER Work Phone: [facility] 08-19-2024 09:30-0500 Systolic blood pressure 132 mm[Hg] Ashanti López PRETZEL COOKER Work Phone: [facility] 07-28-2024 12:58-0500 Body height 170.[address] MD Work Phone: [facility] 07-28-2024 12:58-0500 Body mass index (BMI) [Ratio] 40.72 kg/m2 Zaria Lane MD Work Phone: [facility] 07-28-2024 12:58-0500 Body weight 117.[address] MD Work Phone: [facility] 07-28-2024 12:58-0500 Diastolic blood pressure 80 mm[Hg] Zaria Lane MD Work Phone: [facility] 07-28-2024 12:58-0500 Heart rate 82 /min Zaria Lane MD Work Phone: [facility] 07-28-2024 12:58-0500 Respiratory rate 18 /min Zaria Lane MD Work Phone: [facility] 07-28-2024 12:58-0500 Systolic blood pressure 116 mm[Hg] Zaria Lane MD Work Phone: [facility] 07-24-2024 08:31-0500 Body height 170.2 cm Anthony Santana DPM Work Phone: [facility] 07-24-2024 08:31-0500 Body mass index (BMI) [Ratio] 40.88 kg/m2 Anthony Santana DPM Work Phone: [facility] 07-24-2024 08:31-0500 Body weight 118.39 kg Anthony Santana DPM Work Phone: [facility] 07-24-2024 08:31-0500 Respiratory rate 16 /min Anthony Santana DPM Work Phone: [facility] 07-02-2024 08:53-0500 Body height 170.2 cm Ashanti López PRETZEL COOKER Work Phone: [facility] 07-02-2024 08:53-0500 Body mass index (BMI) [Ratio] 40.88 kg/m2 Ashanti López PRETZEL COOKER Work Phone: [facility] 07-02-2024 08:53-0500 Body temperature 97.2 [degF] Ashanti López PRETZEL COOKER Work Phone: [facility] 07-02-2024 08:53-0500 Body weight 118.39 kg Ashanti López PRETZEL COOKER Work Phone: [facility] 07-02-2024 08:53-0500 Diastolic blood pressure 68 mm[Hg] Ashanti López PRETZEL COOKER Work Phone: [facility] 07-02-2024 08:53-0500 Heart rate 97 /min Ashanti López PRETZEL COOKER Work Phone: [facility] 07-02-2024 08:53-0500 Respiratory rate 16 /min Ashanti López PRETZEL COOKER Work Phone: [facility] 07-02-2024 08:53-0500 SaO2% (BldA) [Mass fraction] 99 % Ashanti López PRETZEL COOKER Work Phone: [facility] 07-02-2024 08:53-0500 Systolic blood pressure 128 mm[Hg] Ashanti López PRETZEL COOKER Work Phone: [facility] 04-29-2024 11:19-0400 Diastolic blood pressure 71 mm[Hg] AMITA REBECCA [facility] 04-29-2024 11:19-0400 Heart rate 92 /min AMITA REBECCA [facility] 04-29-2024 11:19-0400 Respiratory rate 16 /min AMITA REBECCA [facility] 04-29-2024 11:19-0400 Systolic blood pressure 116 mm[Hg] AMITA FERNANDEZ [facility] 04-17-2024 13:21-0400 Body height 170.2 cm Anthony Santana DPM Work Phone: [facility] 04-17-2024 13:21-0400 Body mass index (BMI) [Ratio] 41.82 kg/m2 Anthony Santana DPM Work Phone: [facility] 04-17-2024 13:21-0400 Body weight 121.11 kg Anthony Santana DPM Work Phone: [facility] 04-17-2024 13:21-0400 Diastolic blood pressure 78 mm[Hg] Anthony Santana DPM Work Phone: [facility] 04-17-2024 13:21-0400 Heart rate 75 /min Anthony Santana DPM Work Phone: [facility] 04-17-2024 13:21-0400 Respiratory rate 17 /min Anthony Santana DPM Work Phone: [facility] 04-17-2024 13:21-0400 Systolic blood pressure 116 mm[Hg] Anthony Santana DPM Work Phone: [facility] 04-07-2024 09:01-0400 Body height 170.2 cm Ashanti López PRETZEL COOKER Work Phone: [facility] 04-07-2024 09:01-0400 Body mass index (BMI) [Ratio] 41.82 kg/m2 Ashanti López PRETZEL COOKER Work Phone: [facility] 04-07-2024 09:01-0400 Body temperature 98.1 [degF] Ashanti López PRETZEL COOKER Work Phone: [facility] 04-07-2024 09:01-0400 Body weight 121.11 kg Ashanti López PRETZEL COOKER Work Phone: [facility] 04-07-2024 09:01-0400 Diastolic blood pressure 74 mm[Hg] Ashanti López PRETZEL COOKER Work Phone: [facility] 04-07-2024 09:01-0400 Heart rate 94 /min Ashanti López PRETZEL COOKER Work Phone: [facility] 04-07-2024 09:01-0400 SaO2% (BldA) [Mass fraction] 95 % Ashanti López PRETZEL COOKER Work Phone: [facility] 04-07-2024 09:01-0400 Systolic blood pressure 116 mm[Hg] Ashanti López PRETZEL COOKER Work Phone: [facility] 04-03-2024 10:32-0400 Blood Pressure Location AMITA REBECCA [facility] 04-03-2024 10:32-0400 Body temperature 98.6 [degF] AMITA REBECCA [facility] 04-03-2024 10:32-0400 Diastolic blood pressure 86 mm[Hg] AMITA REBECCA [facility] 04-03-2024 10:32-0400 Heart rate 80 /min AMITA REBECCA [facility] 04-03-2024 10:32-0400 Respiratory rate 16 /min AMITA REBECCA [facility] 04-03-2024 10:32-0400 Systolic blood pressure 134 mm[Hg] AMITA REBECCA [facility] 03-06-2024 09:04-0400 Body height 170.2 cm Ashanti López PRETZEL COOKER Work Phone: [facility] 03-06-2024 09:04-0400 Body mass index (BMI) [Ratio] 41.19 kg/m2 Ashanti López PRETZEL COOKER Work Phone: [facility] 03-06-2024 09:04-0400 Body temperature 99.19 [degF] Ashanti López PRETZEL COOKER Work Phone: [facility] 03-06-2024 09:04-0400 Body weight 119.3 kg Ashanti López PRETZEL COOKER Work Phone: [facility] 03-06-2024 09:04-0400 Diastolic blood pressure 84 mm[Hg] Ashanti López PRETZEL COOKER Work Phone: [facility] 03-06-2024 09:04-0400 Heart rate 111 /min Ashanti López PRETZEL COOKER Work Phone: [facility] Comment on above: 97% O2 03-06-2024 09:04-0400 Systolic blood pressure 108 mm[Hg] Ashanti López PRETZEL COOKER Work Phone: [facility] 11-15-2022 14:53-0400 Blood Pressure Location AMITA REBECCA [facility] 11-15-2022 14:53-0400 Diastolic blood pressure 74 mm[Hg] AMITA REBECCA [facility] 11-15-2022 14:53-0400 Heart rate 68 /min AMITA REBECCA [facility] 11-15-2022 14:53-0400 Respiratory rate 16 /min AMITA REBECCA [facility] 11-15-2022 14:53-0400 Systolic blood pressure 138 mm[Hg] AMITA REBECCA [facility] 01-17-2022 10:08-0400 Blood Pressure Location Tee Almendarez Jr. [facility] 01-17-2022 10:08-0400 Diastolic blood pressure 79 mm[Hg] Tee Almendarez Jr. [facility] 01-17-2022 10:08-0400 Heart rate 81 /min Tee Almendarez Jr. [facility] 01-17-2022 10:08-0400 Respiratory rate 16 /min Tee Almendarez Jr. [facility] 01-17-2022 10:08-0400 Systolic blood pressure 138 mm[Hg] Tee Almendarez Jr. [facility] 11-15-2021 09:32-0400 Blood Pressure Location Tee Almendarez Jr. [facility] 11-15-2021 09:32-0400 Diastolic blood pressure 76 mm[Hg] Tee Almendarez Jr. [facility] 11-15-2021 09:32-0400 Heart rate 97 /min Tee Almendarez Jr. [facility] 11-15-2021 09:32-0400 Respiratory rate 18 /min Tee Almendarez Jr. [facility] 11-15-2021 09:32-0400 Systolic blood pressure 112 mm[Hg] Tee Erickson Brooks [facility] Encounters Encounter Date Encounter Type Care Provider Facility Start: 12-22-2024 ambulatory Kota Carvalho acility:[facility] Start: 12-01-2024 End: 12-01-2024 Bamboo flowsheet Horace Rollins MD Work Phone: [facility] Start: 12-01-2024 End: 12-01-2024 Bamboo flowsheet Horace Rollins MD Work Phone: [facility] Start: 12-01-2024 End: 12-01-2024 ambulatory HORACE ROLLINS Not Available Start: 12-01-2024 End: 12-01-2024 Office outpatient visit 25 minutes Horace Rollins MD Work Phone: [facility] Comment on above: Chronic obstructive pulmonary disease, unspecified COPD type (CMS/HCC) (Primary Dx); Undifferentiated schizophrenia (CMS/HCC); Class 3 severe obesity due to excess calories with serious comorbidity and body mass index (BMI) of 40.0 to 44.9 in adult; Type 2 diabetes mellitus with hyperglycemia, without long-term current use of insulin (CMS/HCC) Start: 11-20-2024 End: 11-24-[address] MD Work Phone: [facility] Comment on above: Medication Problem Start: 08-26-2024 End: 08-26-[address] MD Work Phone: [facility] Comment on above: Medication Problem Start: 08-19-2024 End: 08-19-2024 Bamboo flowsheet Ashanti López NP Work Phone: [facility] Start: 08-19-2024 End: 08-19-2024 Bamboo flowsheet Ashanti López PRETZEL COOKER Work Phone: [facility] Start: 08-19-2024 End: 08-19-2024 Office outpatient visit 10 minutes Ashanti López PRETZEL COOKER Work Phone: [facility] Comment on above: Type II diabetes mika litus with complication (CMS/[facility]) (Primary Dx); Chronic obstructive pulmonary disease, unspecified COPD type ([facility]) Start: 08-19-2024 End: 08-19-2024 ambulatory ASHANTI LÓPEZ Not Available Start: 07-28-2024 End: 07-28-[address] MD Work Phone: [facility] Start: 07-28-2024 End: 07-28-[address] MD Work Phone: [facility] Start: 07-28-2024 End: 07-28-2024 Office outpatient new [address] MD Work Phone: [facility] Comment on above: Type II diabetes mika litus with complication (CMS/HCC) (Primary Dx); Vitamin D deficiency; Insulin long-term use ([facility]); Encounter for dietary consultation; Class 3 severe obesity due to excess calories with serious comorbidity and body mass index (BMI) of 40.0 to 44.9 in adult ([facility]) Start: 07-28-2024 End: 07-28-[address] [...] underlying condition with diabetic 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, unspecified whether detention insulin use (CMS/HCC) (Primary Dx); Pain due to onychomycosis of toenails of both feet; Venous insufficiency Start: 07-24-2024 End: 07-24-2024 ambulatory ANTHONY SANTANA Not Available Start: 07-03-2024 End: 07-03-2024 Orders Only Ashanti López PRETZEL COOKER Work Phone: [facility] Comment on above: Type II diabetes mika litus with complication (CMS/HCC) Start: 07-02-2024 End: 07-02-2024 Bamboo flowsheet Ashanti López PRETZEL COOKER Work Phone: [facility] Start: 07-02-2024 End: 07-02-2024 Bamboo flowsheet Ashanti López PRETZEL COOKER Work Phone: [facility] Start: 07-02-2024 End: 07-02-2024 Office outpatient visit 15 minutes Ashanti Coffeyzpatrick PRETZEL COOKER Work Phone: [facility] Comment on above: Type 2 diabetes marlena itus without complication, with long-term current use of insulin (CMS/[facility]); Type II diabetes mellitus with complication (CMS/HCC) Start: 07-02-2024 End: 07-02-2024 ambulatory ASHANTI LÓPEZ Not Available Start: 06-05-2024 End: 06-05-2024 Orders Only Ashanti López PRETZEL COOKER Work Phone: [facility] Comment on above: Type II diabetes mika litus with complication (CMS/HCC) Start: 05-29-2024 End: 05-29-2024 Orders Only Ashanti López PRETZEL COOKER Work Phone: [facility] Comment on above: Type II diabetes mika litus with complication (CMS/HCC) (Primary Dx) Start: 05-28-2024 End: 05-29-2024 Telephone encounter [facility] Comment on above: NEW PATIENT REFERRAL Start: 05-19-2024 End: 05-19-2024 Telephone encounter Ashanti López PRETZEL COOKER Work Phone: [facility] Start: 04-29-2024 End: 04-29-2024 ambulatory AMITA Huang REBECCA Facility:[facility] Start: 04-29-2024 End: 04-29-2024 Patient encounter procedure AMITA FERNANDEZ [facility] Start: 04-23-2024 End: 04-23-2024 Orders Only Ashanti López PRETZEL COOKER Work Phone: [facility] Comment on [...] underlying condition with diabetic 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, unspecified whether detention insulin use (CMS/HCC) (Primary Dx); Venous insufficiency; Pain due to onychomycosis of toenails of both feet Start: 04-17-2024 End: 04-17-2024 ambulatory ANTHONY SANTANA Not Available Start: 04-16-2024 End: 04-16-2024 Orders Only Ashanti López PRETZEL COOKER Work Phone: [facility] Comment on above: Type II diabetes mika litus with complication (CMS/HCC) (Primary Dx) Start: 04-08-2024 End: 04-08-2024 Orders Only Ashanti López PRETZEL COOKER Work Phone: [facility] Comment on above: Acute swimmer's ear of both sides (Primary Dx); Anal pruritus Type II diabetes mika litus with complication (CMS/HCC) (Primary Dx) Start: 04-07-2024 End: 04-07-2024 Bamboo flowsheet Ashanti Bargerk PRETZEL COOKER Work Phone: [facility] Start: 04-07-2024 End: 04-07-2024 Bamboo flowsheet Ashanti López PRETZEL COOKER Work Phone: [facility] Start: 04-07-2024 End: 04-07-2024 Office outpatient visit 15 minutes Ashanti López PRETZEL COOKER Work Phone: [facility] Comment on above: Type 2 diabetes marlena itus without complication, with long-term current use of insulin (CMS/HCC) (Primary Dx); Type II diabetes mellitus with complication (CMS/HCC); Anal pruritus; Acute otitis externa of both ears, unspecified type Start: 04-07-2024 End: 04-07-2024 ambulatory ASHANTI BARGERK Not Available Start: 04-03-2024 End: 04-03-2024 Clinisync Result Encounter Ashanti López PRETZEL COOKER Work Phone: [facility] External Department Unsolicited Start: 04-03-2024 End: 04-03-2024 Clinisync Result Encounter Ashanti López PRETZEL COOKER Work Phone: [facility] External Department Unsolicited Start: 04-03-2024 End: 04-03-2024 ambulatory AMITA FERNANDEZ Facility:[facility] Start: 04-03-2024 End: 04-03-2024 Patient encounter procedure AMITA FERNANDEZ [facility] Start: 03-06-2024 End: 03-06-2024 Bamboo flowsheet Ashanti Bustostrick PRETZEL COOKER Work Phone: [facility] Start: 03-06-2024 End: 03-06-2024 Bamboo flowsheet Ashanti Bustostrick PRETZEL COOKER Work Phone: [facility] Start: 03-06-2024 End: 03-06-2024 Office outpatient visit 25 minutes Ashanti Bustostrick PRETZEL COOKER Work Phone: [facility] Comment on above: Hyperlipidemia, unsp ecified hyperlipidemia type (CMS/HCC) (Primary Dx); Chronic obstructive pulmonary disease, unspecified COPD type (CMS/HCC); Type 2 diabetes mellitus without complication, with long-term current use of insulin (CMS/HCC) Start: 03-06-2024 End: 03-06-2024 ambulatory ASHANTI LÓPEZ Not Available Start: 03-05-2024 End: 03-05-2024 Refill Ashanti Bustostrick PRETZEL COOKER Work Phone: [facility] Start: 12-31-2023 End: 12-31-2023 ambulatory STONE FAWWAD Not Available Start: 11-20-2023 ambulatory AMITA FERNANDEZ Facili ty:[facility] Start: 08-06-2023 End: 08-06-2023 ambulatory STONE FAWWAD Not Available Start: 06-26-2023 End: 06-26-2023 ambulatory STONE FAWWAD Not Available Start: 11-24-2022 End: 11-25-2022 ambulatory STONE H FAWWAD Facility:[facility] Start: 11-15-2022 End: 11-15-2022 Patient encounter procedure AMITA FERNANDEZ [facility] Start: 04-18-2022 End: 04-19-2022 ambulatory STONE H FAWWAD Facility:[facility] Start: 03-24-2022 End: 03-24-2022 ambulatory SHAIKH Axel SIMS Facility:[facility] Start: 03-11-2022 End: 03-11-2022 ambulatory SHAIKH Axel SIMS Facility:[facility] Start: 02-16-2022 ambulatory SHAIKH Axel SIMS Facilit y:[facility] Start: 01-17-2022 End: 01-17-2022 Patient encounter procedure Tee Almendarez Jr. [facility] Start: 01-09-2022 End: 01-10-2022 ambulatory SHAIKH Axel SIMS Facility:[facility] Start: 12-08-2021 End: 12-09-[address] TEE Lopez Facility:[facility] Start: 11-15-2021 End: 11-15-2021 Patient encounter procedure Tee Almendarez Jr. [facility] Start: 04-28-2021 End: 05-04-2021 ambulatory UNKNOWN PROVIDER Facility:[facility] Start: 01-29-2017 End: 02-05-2017 Evaluation and management of inpatient SUSAN PIERRE [facility] Procedures Date Procedure Procedure Detail Performing Clinician Start: 07-28-2024 Gluc bld gluc mntr d ev cleared fda spec home use Zaria Lane MD Work Phone: Start: 07-02-2024 Hemoglobin glycosyla josiah a1c Ashanti López PRETZEL COOKER Work Phone: Start: 04-03-2024 MLR HEMOGLOBIN A1C Lala López PRETZEL COOKER Work Phone: Start: 02-05-2017 DISCHARGE PATIENT SUSAN BHARDWAJ Start: 02-03-2017 COMPREHENSIVE METABO LIC PANEL SUSAN PIERRE Start: 02-03-2017 Microscopic urinalysis SUSNA PIERRE Start: 02-03-2017 Urinalysis RAQUELGonsalo GABBY Start: 02-03-2017 URINE DRUG SCREEN SUSAN BHARDWAJ Start: 01-30-2017 CBC WITH AUTO DIFFERENTIAL SUSAN PIERRE Start: 01-30-2017 COMPREHENSIVE METABO LIC PANEL SUSAN PIERRE Start: 01-29-2017 FULL CODE SUSAN PIERRE Start: 01-29-2017 IP CONSULT TO HISTOR Y AND PHYSICAL SUSAN PIERRE Start: 01-29-2017 PATIENT STATUS (DIRECT) SUSAN PIERRE Start: 01-29-2017 DIET GENERAL SUSAN PIERRE None (qualifier value) Kwame evaristo Almendarez Jr. Plan of Treatment Date Care Activity Detail Author Start: 06-15-2026 Screening for malign ant neoplasm of colon [facility] Start: 06-03-2025 End: 06-03-2025 Patient encounter procedure 06/03/2025 9:00 AM EST Office Visit [facility] [address] [place] [phone] Horace Rollins MD [address] [place] [phone] [facility] Start: 03-16-2025 Influenza vaccination Influenz a Vaccine (Season Ended) [facility] Start: 01-25-2025 Hemoglobin A1c measurement Diabetes: Hemoglobin A1C [facility] Start: 12-17-2024 End: 12-17-2024 Patient encounter procedure 12/17/2024 10:00 AM EDT Office Visit [facility] [address] [place] [address] MD [address] [place] [address] [facility] Start: 12-14-2024 Glaucoma screening Diabetes: R etinopathy Screening [facility] Start: 12-01-2024 End: 12-01-2024 Patient encounter procedure 12/01/2024 8:45 AM EDT Office Visit [facility] [address] [place] [phone] Horace Rollins MD [address] [place] [phone] [facility] Start: 10-27-2024 End: 10-27-2024 Patient encounter procedure 10/27/2024 1:10 PM EDT Office Visit [facility] [address] [place] [address] MD [address] [place] [address] [facility] Start: 10-26-2024 Hemoglobin A1c measurement Diabetes: Hemoglobin A1C [facility] Start: 10-14-2024 End: 10-14-2024 [facility] Start: 10-02-2024 End: 10-02-2024 Patient encounter procedure 10/02/2024 8:30 AM EDT Office Visit [facility] [address] [id number] Anthony Santana DPM [address] [facility] [address] [place] [address] [facility] Start: 09-30-2024 Hemoglobin A1c measurement Diabetes: Hemoglobin A1C [facility] Start: 09-24-2024 End: 09-24-2024 Patient encounter procedure 09/24/2024 11:00 AM EDT Consult [facility] [address] [place] [address] MD [address] [place] [address] [facility] Start: 08-19-2024 End: 08-19-2024 Patient encounter procedure 08/19/2024 9:30 AM EST Office Visit [facility] [address] [place] [phone] Ashanti López, OPHELIA [address] [place] [phone] Arrived [facility] Comment on above: Arrived Start: 08-06-2024 End: 08-06-2024 Patient encounter procedure 08/06/2024 9:00 AM EST [facility] [address] [place] [address] Ashanti López, OPHELIA [address] [place] [address] [facility] Start: 08-01-2024 Medicare Annual Well ness (AWV) Medicare Annual Wellness (AWV) [facility] Start: 07-28-2024 End: 07-28-2025 25-hydroxyvitamin D3 [Mass/volume] in Serum or Plasma Vitamin D 25 hydroxy Total Lab Routine Type II diabetes mellitus with complication (CMS/HCC) Expected: 07/28/2024 (Approximate), Expires: 07/28/2025 [facility] Comment on above: Expected: 07/28/2024 (Approximate), Expires: 07/28/2025 Start: 07-28-2024 End: 07-28-2025 C-peptide C-peptide Lab Routine Type II diabetes mellitus with complication (CMS/HCC) Expected: 07/28/2024 (Approximate), Expires: 07/28/2025 [facility] Work Phone: Comment on above: Expected: 07/28/2024 (Approximate), Expires: 07/28/2025 Start: 07-28-2024 End: 07-28-2025 Lipid 1996 panel - Serum or Plasma Lipid panel Lab Routine Type II diabetes mellitus with complication (CMS/HCC) Expected: 07/28/2024 (Approximate), Expires: 07/28/2025 [facility] Comment on above: Expected: 07/28/2024 (Approximate), Expires: 07/28/2025 Start: 07-28-2024 End: 07-28-2025 Microalbumin/Creatinine panel in random Urine Microalbumin / creatinine urine ratio Lab Routine Type II diabetes mellitus with complication (CMS/HCC) Expected: 07/28/2024 (Approximate), Expires: 07/28/2025 [facility] Comment on above: Expected: 07/28/2024 (Approximate), Expires: 07/28/2025 Start: 07-28-2024 End: 07-28-2025 Renal function panel Renal function panel Lab Routine Type II diabetes mellitus with complication ([facility]) Expected: 07/28/2024 (Approximate), Expires: 07/28/2025 [facility] Comment on above: Expected: 07/28/2024 (Approximate), Expires: 07/28/2025 Start: 07-28-2024 End: 07-28-2024 Patient encounter procedure [facility] Comment on above: Type II diabetes mika litus with complication ([facility]) Start: 07-24-2024 End: 07-24-2024 Patient encounter procedure [facility] Comment on above: Diabetes mellitus du e to underlying condition with diabetic 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, unspecified whether detention insulin use ([facility]) (Primary Dx); Pain due to onychomycosis of toenails of both feet; Venous insufficiency Start: 07-02-2024 End: 07-02-2024 Patient encounter procedure [facility] Comment on above: Arrived Start: 06-29-2024 Urine screening for protein Diabetes: Urine Protein Screening [facility] Start: 06-18-2024 End: 06-18-2024 Patient encounter procedure 06/18/2024 10:30 AM EST Consult [facility] [address] [place] [phone] Zaria Lane MD [address] [place] [address] [facility] Start: 05-20-2024 End: 05-20-2024 Patient encounter procedure 05/20/2024 9:40 AM EST Office Visit [facility] [address] [facility] [address] [place] [phone] Ana Chiu MD [address] [facility] [address] [place] [address] [facility] Start: 04-17-2024 End: 04-17-2024 Patient encounter procedure [facility] Comment on above: Diabetes mellitus du e to underlying condition with diabetic 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, unspecified whether detention insulin use ([facility]) (Primary Dx); Onychomycosis; Toe pain, bilateral; Venous insufficiency Start: 04-07-2024 End: 04-07-2025 Hemoglobin A1c/Hemoglobin.total in Blood Hemoglobin A1c Lab Routine Type II diabetes mellitus with complication ([facility]) Expected: 04/07/2024 (Approximate), Expires: 04/07/2025 [facility] Work Phone: Comment on above: Expected: 04/07/2024 (Approximate), Expires: 04/07/2025 Start: 04-07-2024 End: 04-07-2024 Patient encounter procedure [facility] Comment on above: Type 2 diabetes marlena itus without complication, with long-term current use of insulin ([facility]) (Primary Dx) Start: 03-16-2024 Influenza vaccination [facility] Start: 03-06-2024 End: 03-06-2025 Hemoglobin A1c/Hemoglobin.total in Blood Hemoglobin A1c Lab Routine Type 2 diabetes mellitus without complication, with long-term current use of insulin ([facility]) Expected: 03/06/2024 (Approximate), Expires: 03/06/2025 [facility] Work Phone: Comment on above: Expected: 03/06/2024 (Approximate), Expires: 03/06/2025 Start: 03-06-2024 End: 03-06-2024 Patient encounter procedure [facility] Comment on above: Hyperlipidemia, unsp ecified hyperlipidemia type ([facility]) (Primary Dx); Chronic obstructive pulmonary disease, unspecified COPD type ([facility]); Type 2 diabetes mellitus without complication, with long-term current use of insulin ([facility]) Start: 12-25-2023 Hemoglobin A1c measurement Diabetes: Hemoglobin A1C [facility] Start: 2022 Administration of varicella zoster vaccine Zoster (Shingles) Vaccine (1 of 2) [facility] Start: 1991 DTaP,Tdap and Td Vaccines (1 - Tdap) DTaP,Tdap and Td Vaccines (1 - Tdap) [facility] Start: 1990 Adult BMI Screening Adult BMI Screen ing [facility] [employer] [facility] Start: 1990 Diabetic foot examination Diabetic Foot Exam [facility] Start: 1984 Depression Screening Depression Scre ening [facility] Start: 1984 Tobacco Screening Tobacco Screening [facility] Start: 1972 Glaucoma screening Diabetic Op hthalmology Exam [facility] Start: 1972 Screening for malign ant neoplasm of colon [facility] Immunizations Immunization Date Immunization Notes Care Provider Fa cility 01-01-2021 SARS-CoV-2 (COVID-19 ) mRNA BNT-162b2 convoy [employer]x AMITA DUGGANRY [facility] Comment on above: Result Comment: 2022: [id number] 12-11-2020 SARS-CoV-2 (COVID-19 ) mRNA BNT-162b2 Daily[employer] REBECCA [facility] Comment on above: Result Comment: 2022: [id number] Payers Date Payer Category Payer Self-pay 2021 Unknown [id number] 2019 Medicare (Managed Care) 1.2. [id number] 315 2016 Medicare [id number] 2006 Medicare [id number] 1972 Unknown [id number] 2.16. [id number] 1972 Unknown [id number] 2.16.84 0.1.600958.3.579.2.593 1972 Unknown [id number] 2.16.84 0.1.371335.3.579.2.593 1972 Unknown [id number] 2.16.84 0.1.904342.3.579.2.593 1972 Unknown [id number] 2.16.84 0.1.413296.3.579.2.593 1972 Unknown [id number] 2.16.84 0.1.653043.3.579.2.593 1972 Unknown [id number] 2.16.84 0.1.067639.3.579.2.593 1972 Unknown [id number] 2.16.84 0.1.592110.3.579.2.593 1972 Unknown [id number] 2.16.84 0.1.896601.3.579.2.593 1972 Unknown [id number] 2.16.84 0.1.320909.3.579.2.1259 1972 Unknown [id number] 2.16.840 .1.420554.3.579.2.1259 1972 Unknown [id number] 2.16.8 40.1.595351.3.579.2.727 1972 Unknown [id number] 2.16.8 40.1.310992.3.579.2.727 1972 Unknown [id number] 2.16.8 40.1.860990.3.579.2.727 1972 Unknown [id number] 2.16.84 0.1.023930.3.579.2.1259 1972 Unknown [id number] 2.16.84 0.1.491742.3.579.2.1259 1972 Unknown [id number] 2.16.84 0.1.932425.3.579.2.1259 1972 Unknown [id number] 2.16.84 0.1.840569.3.579.2.1259 1972 Unknown [id number] 2.16.84 0.1.823425.3.579.2.1259 1972 Unknown [id number] 2.16.84 0.1.981309.3.579.2.1259 1972 Unknown [id number] 2.16.84 0.1.127998.3.579.2.1259 1972 Unknown [id number] 2.16.84 0.1.933733.3.579.2.1259 1972 Unknown [id number] 2.16.84 0.1.440978.3.579.2.1259 1957 Medicare [id number] Unknown [id number] 2.16.8 40.1.960793.3.579.2.531 Social History Date Type Detail Facility Tobacco Current, Cigaret yao, 40 per day. [facility] Start: 04-07-2024 End: 12-01-2024 Sex Assigned At Male [facility] Start: 01-17-2022 End: 04-29-2024 Tobacco smoking status Heavy tobacco smoker (finding) [facility] Start: 07-16-1988 Tobacco smoking status UTIS Smokes tobacco daily [facility] Start: 07-16-1988 End: 06-15-2024 History of tobacco use Cigarette Smoker [facility] Start: 12-31-2023 End: 04-07-2024 Cigarettes smoked current (pack per day) - Reported 2 [facility] Start: 12-31-2023 End: 07-02-2024 Tobacco use and exposure Smokeless tobacco non-user [facility] Start: 04-07-2024 End: 12-01-2024 Alcoholic beverage intake Current drinker of alcohol (finding) [facility] Start: 06-15-2023 Tobacco Comment 31 or more cigarettes/day [facility] Start: 06-15-2023 Alcohol Comment caffeine: more than 4 cups/day [facility] Start: 1972 Sex assigned at Not on file [facility] Tobacco smoking status Never [facility] Start: 07-02-2024 Tobacco smoking status UTIS Ex-smoker [facility] Start: 07-16-1988 End: 06-15-2024 History of tobacco use Current smoker [facility] Tobacco smoking status [email or web address] Tobacco smoking consumption unknown [facility] Start: 02-18-2015 Sex Male (finding) [facility] NEGATED: Highlighted rowStart: NINF History of tobacco use Passive smoker [facility] Medical Equipment Procedure Code Equipment Code Equipment Origin al Text Equipment Identifier Dates [id number] Start: 04-07-2024 End: 04-07-2025 Inject 1 each un chandan the skin Daily Use as instructed [id number] Start: 04-16-2024 Functional Status Date Assessment Result Facility 04-29-2024 Functional Status N/A [facility] 04-03-2024 Functional Status N/A [facility] 11-15-2022 Functional Status N/A [facility] 01-17-2022 Functional Status N/A [facility] Clinical Notes 11-15-2021 to 12-01-2024 Horace Rollins MD - 12/01/2024 9:26 AM George Rollins MD - 12/01/2024 9:26 AM George Rollins MD - 12/01/2024 9:25 AM George Rollins MD - 12/01/2024 9:25 AM EDTPatient Instructions Note Date & Type Note Facility 12-01-2024 History of Present illness Narrative Associated Problem(s): Type 2 diabetes mellitus with hyperglycemia, without long-term current use of insulin ([facility]) Not checking BS and need to follow up with endo. Associated Problem(s): Schizophrenia Reports stopped medication and patient with unusual behavior. Able to redirect and not aggressive but concerning. Denies thoughts of hurting self or others. Needs to follow up with psychiatry. Associated Problem(s): Chronic obstructive pulmonary disease (CMS/HCC) Sob stable and use albuterol PRN. Associated Problem(s): Class 3 severe obesity due to excess calories with serious comorbidity and body mass index (BMI) of 40.0 to 44.9 in adult Weight loss indicated. Images from the original note were not included. Subjective Patient ID: Johnny Verma is a 54 y.o. male who presents for Follow-up (Muscle soreness). Follow up COPD, DM, and schizophrenia. Patient reports stopped taking Cobenfy several weeks ago due to weight gain. Previously given geodon but also stopped. Upset with weight from medication. Reports scheduled with psychiatry but states feels okay without medication. COPD stable. Denies SOB or cough with exertion. No sputum. Not checking BS and following with endocrinology. A1C 11.5 in July. Review of Systems Constitutional: Negative for fatigue. Respiratory: Negative for cough, shortness of breath and wheezing. Cardiovascular: Negative for chest pain and palpitations. Gastrointestinal: Negative for abdominal pain, diarrhea, nausea and vomiting. Genitourinary: Negative for dysuria. Objective Physical Exam Constitutional: General: He is not in acute distress. Appearance: Normal appearance. HENT: Head: Normocephalic. Right Ear: Tympanic membrane and ear canal normal. Left Ear: Tympanic membrane and ear canal normal. Eyes: Extraocular Movements: Extraocular movements intact. Pupils: Pupils are equal, round, and reactive to light. Cardiovascular: Rate and Rhythm: Normal rate and regular rhythm. Heart sounds: No murmur heard. No friction rub. No gallop. Pulmonary: Breath sounds: Normal breath sounds. No wheezing, rhonchi or rales. Abdominal: General: Bowel sounds are normal. There is no distension. Palpations: Abdomen is soft. Tenderness: There is no abdominal tenderness. There is no guarding or rebound. Musculoskeletal: Left lower leg: No edema. Neurological: Mental Status: He is alert. Assessment/Plan Problem List Items Addressed This Visit Class 3 severe obesity due to excess calories with serious comorbidity and body mass index (BMI) of 40.0 to 44.9 in adult Weight loss indicated. Chronic obstructive pulmonary disease ([facility]) - Primary Sob stable and use albuterol PRN. Schizophrenia Reports stopped medication and patient with unusual behavior. Able to redirect and not aggressive but concerning. Denies thoughts of hurting self or others. Needs to follow up with psychiatry. Type 2 diabetes mellitus with hyperglycemia, without long-term current use of insulin ([facility]) Not checking BS and need to follow up with endo. documented in this encounter [facility] 11-20-2024 Telephone encounter Note Pt states ozempic too expensive, would like something less expensive if possible? [facility] 11-20-2024 Miscellaneous Notes Pt states ozempic too expensive, would like something less expensive if possible? documented in this encounter [facility] 08-26-2024 Telephone encounter Note Pt says ozempic is $500. Is there a different medication that he can try? Please advise. He's going to try for patient assistance. [facility] 08-26-2024 Miscellaneous Notes Pt says ozempic is $500. Is there a different medication that he can try? Please advise. He's going to try for patient assistance. documented in this encounter [facility] 08-19-2024 History of Present illness Narrative Associated Problem(s): Chronic obstructive pulmonary disease ([facility]) Reports he has recernly stopped smoking and drinking alcohol. States he feels his COPD symptoms are well controlled now compared to several months ago when he was smoking. Reports minimal rescue inhaler use. Continue current regimen. Associated Problem(s): Type II diabetes mellitus with complication ([facility]) Most recent A1C 11.5% 07/2024. Was referred [...] Addressed This Visit Chronic obstructive pulmonary disease ([facility]) Reports he has recernly stopped smoking and drinking alcohol. States he feels his COPD symptoms are well controlled now compared to several months ago when he was smoking. Reports minimal rescue inhaler use. Continue current regimen. Type II diabetes mellitus with complication ([facility]) - Primary Most recent A1C 11.5% 07/2024. Was referred to Endocrinology- is now following with Dr. Lane. Actos was increased, glipizide increased. Lantus increased and started on Semaglutide. States he has been taking medication exactly as directed by Dr. Lane. Reports no adverse reactions to medications, hypoglycemic episodes. Continue current regimen as directed buy Dr. Lane. documented in this encounter [facility] 08-19-2024 Instructions Ashanti López NP - 08/19/2024 9:30 AM EST Keep ALL appointments as scheduled with ALL of your specialists. Have your lab work done before your next visit with Dr. Lane in October. Call if you need anything! documented in this encounter [facility] 07-28-2024 History of Present illness [...] 1 Pad, Every 12 hours Continuous Glucose Auto Emissions Technician (FreeStyle Tenzin 2 [place]) device 1 Device, Does not apply, Once [...] left ear COPD (chronic obstructive pulmonary disease) ([facility]) COVID-19 spring 2019 Depression ([facility]) DM (diabetes mellitus), type 2 ([facility]) Dysmetabolic syndrome X History of being hospitalized psychiatric,pneumonia,COPD Hypogonadism, male Insomnia Mental health disorder Mixed conductive and sensorineural hearing loss of left ear with restricted hearing of right ear Obese On combination antipsychotic drug therapy Osteoarthritis of knee Pancreatitis Paresthesia of hand Recurrent acute otitis media Schizophrenia ([facility]) Skin excoriation Sleep apnea, obstructive Smoking Tingling in extremities Type 2 diabetes mellitus, with long-term current use of insulin ([facility]) No past surgical history on file. REVIEW [...] visit: Type II diabetes mellitus with complication (CMS/HCC) - Ambulatory referral to Endocrinology - POCT [...] the skin at bedtime - Continuous Glucose Auto Emissions Technician (FreeStyle Tenzin 2 [place]) device; 1 Device 1 (one) time for [...] C-peptide. Vitamin D deficiency Insulin long-term use ([facility]) Encounter for dietary consultation Diet and exercise reviewed with the patient Class 3 severe obesity due to excess calories with serious comorbidity and body mass index (BMI) of 40.0 to 44.9 in adult ([facility]) Advised to learn about carb count Follow up in about 3 months (around 10/26/2024). documented in this encounter [facility] 07-24-2024 History of Present illness Narrative Patient: Johnny Shah Bayron : 1970 PCP: Horace Rollins MD SUBJECTIVE This is a 54 y.o. [...] left ear COPD (chronic obstructive pulmonary disease) ([facility]) COVID-19 spring 2019 Depression ([facility]) DM (diabetes mellitus), type 2 ([facility]) Dysmetabolic syndrome X History of being hospitalized psychiatric,pneumonia,COPD Hypogonadism, male Insomnia Mental health disorder Mixed conductive and sensorineural hearing loss of left ear with restricted hearing of right ear Obese On combination antipsychotic drug therapy Osteoarthritis of knee Pancreatitis Paresthesia of hand Recurrent acute otitis media Schizophrenia ([facility]) Skin excoriation Sleep apnea, obstructive Smoking Tingling in extremities Type 2 diabetes mellitus, with long-term current use of insulin ([facility]) Medications: Current Outpatient Medications: albuterol (2.5 MG/3ML) [...] and negative PT pedal pulses NEURO: 5.07 [place] Maddie monofilament test intact to digits and forefoot bilaterally 125Hz tuning fork diminished to 1st MPJ bilaterally ORTHO: Positive pain on palpation to nails 1 through 10 ASSESSMENT 1. 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 Pain due to onychomycosis of toenails [...] Anthony Santana DPM documented in this encounter [facility] 07-02-2024 History of Present illness Narrative Associated Problem(s): Hyperlipidemia ([facility]) Not on any medication therapy currently. Triglycerides are slightly elevated. Continue to monitor closely with psychiatric medications Associated Problem(s): Type II diabetes mellitus with complication (CMS/HCC) Currently taking Glipizide 5mg BID Actos 15 [...] Visit Type II diabetes mellitus with complication (CMS/HCC) Currently taking Glipizide 5mg BID Actos 15 [...] with long-term current use of insulin (CMS/HCC) Relevant Medications dapagliflozin (Farxiga) 5 MG Other Relevant Orders POCT glycosylated hemoglobin (Hb A1C) docked device (Completed) documented in this encounter [facility] 07-02-2024 Instructions Ashanti López NP [...] and simple sugars. documented in this encounter [facility] 05-28-2024 Miscellaneous Notes First Attempt Made from [employer] FULL New patient referral received. Dx:Type II diabetes mellitus with complication ([facility]) [E11.8] Polyneuropathy [G62.9]/ Referred by:Ashanti López APRN-DARRIN Referred to: Providers patient can see in clinic (Make sure if AGUILA is listed the patient has not seen a Neurologist before): Please contact patient to schedule from referral, Thanks! PLEASE REVIEW PLAN OVER THE PHONE AND ADVISE PATIENT TO BRING UPDATED INSURANCE INFORMATION TO THEIR NEW PATIENT APPOINTMENT 2nd attempt: [employer] Agent contacted patient once more attempting to inform patient that we have received their new patient referral and are calling to schedule them in with our first available appointment with our clinic. Patient appeared to answer phone but there was no response on the other end. FYI. [facility] 05-28-2024 Telephone encounter Note First Attempt Made from Fidencio FULL New patient referral received. Dx:Type II diabetes mellitus with complication ([facility]) [E11.8] Polyneuropathy [G62.9]/ Referred by:VERNELL Hoskins Referred to: Providers patient can see in clinic (Make sure if AGUILA is listed the patient has not seen a Neurologist before): Please contact patient to schedule from referral, Thanks! PLEASE REVIEW PLAN OVER THE PHONE AND ADVISE PATIENT TO BRING UPDATED INSURANCE INFORMATION TO THEIR NEW PATIENT [facility]POINTMENT [facility] 05-28-2024 Telephone encounter Note 2nd attempt: [employer] Agent contacted patient once more attempting to inform patient that we have received their new patient referral and are calling to schedule them in with our first available appointment with our clinic. Patient appeared to answer phone but there was no response on the other end. RANDEEI. [facility] [place] [facility]24 Telephone encounter Note Spoke with patient [...] to see a new primary care provider. [facility] 05-19-2024 Miscellaneous Notes Spoke with [...] primary care provider. documented in this encounter [facility] 05-02-2024 Note Patient Education Urology [...] these instructions at home: Medicines ? Take tibw-oqd-vtduzba and prescription medicines only as told by [...] or tobacco. These (more content not included)... [facility] 04-23-2024 History of Present illness Narrative [...] from pharmacy today. documented in this encounter [facility] 04-17-2024 History of Present illness Narrative Patient: Johnny Verma : 1970 PCP: Horace Rollins MD SUBJECTIVE This is a 53 y.o. [...] left ear COPD (chronic obstructive pulmonary disease) ([facility]) COVID-19 spring 2019 Depression ([facility]) DM (diabetes mellitus), type 2 ([facility]) Dysmetabolic syndrome X History of being hospitalized psychiatric,pneumonia,COPD Hypogonadism, male Insomnia Mental health disorder Mixed conductive and sensorineural hearing loss of left ear with restricted hearing of right ear Obese On combination antipsychotic drug therapy Osteoarthritis of knee Pancreatitis Paresthesia of hand Recurrent acute otitis media Schizophrenia ([facility]) Skin excoriation Sleep apnea, obstructive Smoking Tingling in extremities Type 2 diabetes mellitus, with long-term current use of insulin ([facility]) Medications: Current Outpatient Medications: albuterol (2.5 MG/3ML) [...] and negative PT pedal pulses NEURO: 5.07 [place] Maddie monofilament test intact to digits and forefoot bilaterally 125Hz tuning fork diminished to 1st MPJ bilaterally ORTHO: Positive pain on palpation to nails 1 through 10 ASSESSMENT 1. Diabetes mellitus due to underlying condition with diabetic 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, unspecified whether detention insulin use ([facility]) 2. Onychomycosis 3. Toe pain, bilateral 4. [...] Anthony Santana DPM documented in this encounter [facility] 04-08-2024 History of Present illness Narrative Associated Problem(s): Type II diabetes mellitus with complication ([facility]) Was on Novolin 70/30 60u BID but [...] complication, with long-term current use of insulin ([facility]) - Primary Anal pruritus Rx sent for hydrocortisone suppository Type II diabetes mellitus with complication ([facility]) Was on Novolin 70/30 60u BID but [...] in X7 days documented in this encounter [facility] 04-07-2024 Instructions Ashanti López NP [...] and simple sugars. documented in this encounter [facility] 04-03-2024 Hospital Discharge instructions Patient [...] Follow these instructions at home: Medicines Take nybw-ixm-pyaahqt and prescription medicines only as told by [...] important. Where to find more information [employer] [place] of Diabetes and Digestive and Kidney Diseases: [...] depends on the type of prostatitis. Take gvbs-ena-riyphmy and prescription medicines only as told by [...] provider. Document Revised: 05/17/2023 Document Reviewed: 05/17/2023 [employer] Patient Education 2023 [employer]. Follow Up Care 04/01/2024 10:02:22 With:AMITA FERNANDEZ PA-C, URL Address: [address] [place] [phone] Business (1) When: only if needed [facility] 04-03-2024 Note Patient Education Infectious Disease [...] these instructions at home: Medicines ? Take ytxz-lgd-kqxuqrd and prescription medicines only as told by [...] Where to find more information ? [employer] [place] of Diabetes and Digestive a (more content not included)... [facility] 03-06-2024 History of Present illness Narrative Associated Problem(s): Hyperlipidemia ([facility]) Not on any medication therapy. Triglycerides are slightly elevated. Continue to monitor closely with psychiatric medications Associated Problem(s): Chronic obstructive pulmonary disease (CMS/HCC) Worsened from baseline as he is smoking again. Reports cough and intermittent SOB on exertion with warmer days and humidity. Patient counseled on smoking cessation. Associated Problem(s): Type 2 diabetes mellitus without complication, with long-term current use of insulin ([facility]) Currently not taking insulin Most recent A1C [...] GLUCOSE mg/dL 146 200 180 Resulting Agency [facility] TB Most recent labs: hemoglobin A1C [...] ALBUMIN GLOBULIN RATIO 0.8 0.8 Resulting Agency [facility] COPD: Albuterol Feels Symptoms are not well [...] complication, with long-term current use of insulin ([facility]) Currently not taking insulin Most recent A1C is 6.7% without medications Reports he is inconsistently taking old prescription of Glipizide if he eats poorly. Stressed the importance of adhering to medication regimen and not changing medications without consulting provider first. Relevant Orders Hemoglobin A1c Chronic obstructive pulmonary disease ([facility] H[facility]) Worsened from baseline as he is smoking again. Reports cough and intermittent SOB on exertion with warmer days and humidity. Patient counseled on smoking cessation. Hyperlipidemia (CMS/HCC) - Primary Not on any medication therapy. Triglycerides are slightly elevated. Continue to monitor closely with psychiatric medications documented in this encounter [facility] 03-06-2024 Instructions Ashanti López NP [...] and simple sugars. documented in this encounter [facility] 11-15-2022 Hospital Discharge instructions Patient [...] Follow these instructions at home: Medicines Take xdvl-oac-suneasl and prescription medicines only as told by [...] provider. Document Revised: 09/28/2021 Document Reviewed: 09/28/2021 Hasht[employer] Patient Education 2022 [employer]. Follow Up Care 10/31/2022 09:47:32 With:AMITA FERNANDEZ PA-C, URL Address: [address] [place] [address] When: Unknown [facility] 01-17-2022 Hospital Discharge instructions Patient Education [...] Follow these instructions at home: Medicines Take ndhb-fca-ahfregf and prescription medicines only as told by [...] 06/29/2001 Document Revised: 06/14/2018 Document Reviewed: 07/18/2017 [employer]ht[employer] Patient Education 2020 [employer] Follow Up Care 11/15/2021 10:33:52 With:Erickson Brooks MD, Tee Brush, URO Address: [facility] [address] [place] [address]- [phone] When:02/28/2022 [facility] 11-15-2021 Hospital Discharge instructions Patient Education 11/15/2021 [...] Follow these instructions at home: Medicines Take tdir-jry-unigvmd and prescription medicines only as told by [...] 06/29/2001 Document Revised: 06/14/2018 Document Reviewed: 07/18/2017 Hashtrack Patient Education 2020 [employer]. Follow Up Care 08/23/2021 10:12:56 With:Tee Almendarez Jr., MD, URO Address: [facility] [address], [place] [address]- When:01/15/2022 [facility] Evaluation + Plan note Future Appointments Appointment Date:01/17/2022 09:45:00 AM Scheduled Provider:Tee Almendarez Jr., MD Location:[facility] Appointment Type:URO Office Visit Diagnostic Tests PendingTestosterone Level Total 11/15/21 [facility] Evaluation + Plan note Future Appointments Appointment Date:03/07/2022 08:45:00 AM Scheduled Provider:Tee Almendarez Jr., MD Location:[facility] Appointment Type:URO Office Visit [facility] Evaluation + Plan note Future Appointments Appointment Date:11/20/2023 09:00:00 AM Scheduled Provider:AMITA FERNANDEZ PA-C Location:[facility] Appointment Type:URO Office Visit [facility] Evaluation note Diagnosis Type II diabetes mellitus with complication (CMS/HCC)- Primary Type II or unspecified type diabetes mellitus with unspecified complication, not stated as uncontrolled Diabetes mellitus due to underlying condition with diabetic 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, unspecified whether detention insulin use (CMS/HCC)- Primary Onychomycosis Dermatophytosis of nail Toe pain, bilateral Venous insufficiency Unspecified venous (peripheral) insufficiency documented in this encounter [facility] HealthcareEvaluation note* Diagnosis Diabetes mellitus due to underlying condition with diabetic 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, 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 (CMS/HCC)- Primary Venous insufficiency Unspecified venous (peripheral) insufficiency Pain due to onychomycosis of toenails of both feet documented in this encounter [facility] HealthcareEvaluation note* Diagnosis Type II diabetes mellitus with complication (CMS/HCC)- Primary Type II or unspecified type diabetes mellitus with unspecified complication, not stated as uncontrolled documented in this encounter [facility] HealthcareEvaluation note* Diagnosis Obesity, morbid (CMS/HCC)- Primary Morbid obesity Type 2 diabetes mellitus without complication, with long-term current use of insulin (CMS/HCC) Schizophrenia, unspecified type (CMS/HCC) Chronic obstructive pulmonary disease, unspecified COPD type (CMS/HCC) Hyperlipidemia, unspecified hyperlipidemia type ([facility]/HCC) Encounter for screening for malignant neoplasm of colon Chronic obstructive pulmonary disease, unspecified COPD type (CMS/HCC)- Primary Type 2 diabetes mellitus without complication, with long-term current use of insulin (CMS/HCC) Tobacco abuse Tobacco use disorder Undifferentiated schizophrenia (CMS/HCC) Type 2 diabetes mellitus without complication, with long-term current use of insulin (CMS/HCC)- Primary Thoracolumbar back pain Hidradenitis suppurativa of left axilla Type 2 diabetes mellitus without complication, with long-term current use of insulin (CMS/HCC)- Primary Obesity, morbid (CMS/HCC) Morbid obesity Undifferentiated schizophrenia (CMS/HCC) Hyperlipidemia, unspecified hyperlipidemia type (CMS/HCC) Thoracolumbar back pain Hyperlipidemia, unspecified hyperlipidemia type (CMS/HCC)- Primary Chronic obstructive pulmonary disease, unspecified COPD type ([facility]) Type 2 diabetes mellitus without complication, with long-term current use of insulin ([facility]) Type 2 diabetes mellitus without complication, with long-term current use of insulin ([facility])- Primary Type II diabetes mellitus with complication ([facility]) Type II or unspecified type diabetes mellitus with unspecified complication, not stated as uncontrolled Anal pruritus Pruritus ani Acute otitis externa of both ears, unspecified type Type II diabetes mellitus with complication ([facility])- Primary Type II or unspecified type diabetes mellitus with unspecified complication, not stated as uncontrolled documented in this encounter [facility] HealthcareEvaluation note* Diagnosis Obesity, morbid ([facility])- Primary Morbid obesity Type 2 diabetes mellitus without complication, with long-term current use of insulin ([facility]) Schizophrenia, unspecified type ([facility]) Chronic obstructive pulmonary disease, unspecified COPD type ([facility]) Hyperlipidemia, unspecified hyperlipidemia type ([facility]) Encounter for screening for malignant neoplasm of colon Chronic obstructive pulmonary disease, unspecified COPD type ([facility])- Primary Type 2 diabetes mellitus without complication, with long-term current use of insulin ([facility]) Tobacco abuse Tobacco use disorder Undifferentiated schizophrenia ([facility]) Type 2 diabetes mellitus without complication, with long-term current use of insulin ([facility])- Primary Thoracolumbar back pain Hidradenitis suppurativa of left axilla Type 2 diabetes mellitus without complication, with long-term current use of insulin ([facility])- Primary Obesity, morbid ([facility]) Morbid obesity Undifferentiated schizophrenia ([facility]) Hyperlipidemia, unspecified hyperlipidemia type ([facility]) Thoracolumbar back pain Hyperlipidemia, unspecified hyperlipidemia type ([facility])- Primary Chronic obstructive pulmonary disease, unspecified COPD type ([facility]) Type 2 diabetes mellitus without complication, with long-term current use of insulin ([facility]) Type 2 diabetes mellitus without complication, with long-term current use of insulin ([facility])- Primary Type II diabetes mellitus with complication ([facility]) Type II or unspecified type diabetes mellitus with unspecified complication, not stated as uncontrolled Anal pruritus Pruritus ani Acute otitis externa of both ears, unspecified type Type II diabetes mellitus with complication ([facility]) Type II or unspecified type diabetes mellitus with unspecified complication, not stated as uncontrolled documented in this encounter [facility] HealthcareEvaluation note* Diagnosis Obesity, morbid ([facility])- Primary Morbid obesity Type 2 diabetes mellitus without complication, with long-term current use of insulin ([facility]) Schizophrenia, unspecified type ([facility]) Chronic obstructive pulmonary disease, unspecified COPD type ([facility]) Hyperlipidemia, unspecified hyperlipidemia type ([facility]) Encounter for screening for malignant neoplasm of colon Chronic obstructive pulmonary disease, unspecified COPD type ([facility])- Primary Type 2 diabetes mellitus without complication, with long-term current use of insulin ([facility]) Tobacco abuse Tobacco use disorder Undifferentiated schizophrenia ([facility]) Type 2 diabetes mellitus without complication, with long-term current use of insulin ([facility])- Primary Thoracolumbar back pain Hidradenitis suppurativa of left axilla Type 2 diabetes mellitus without complication, with long-term current use of insulin ([facility])- Primary Obesity, morbid ([facility]) Morbid obesity Undifferentiated schizophrenia ([facility]) Hyperlipidemia, unspecified hyperlipidemia type ([facility]) Thoracolumbar back pain Hyperlipidemia, unspecified hyperlipidemia type ([facility])- Primary Chronic obstructive pulmonary disease, unspecified COPD type ([facility]) Type 2 diabetes mellitus without complication, with long-term current use of insulin ([facility]) Type 2 diabetes mellitus without complication, with long-term current use of insulin ([facility])- Primary Type II diabetes mellitus with complication ([facility]) Type II or unspecified type diabetes mellitus with unspecified complication, not stated as uncontrolled Anal pruritus Pruritus ani Acute otitis externa of both ears, unspecified type Type II diabetes mellitus with complication ([facility])- Primary Type II or unspecified type diabetes mellitus with unspecified complication, not stated as uncontrolled documented in this encounter [facility]* Diagnosis Hyperlipidemia, unspecified hyperlipidemia type ([facility])- Primary Chronic obstructive pulmonary disease, unspecified COPD type ([facility]) Type 2 diabetes mellitus without complication, with long-term current use of insulin ([facility]) documented in this encounter [facility]Evaluation note* Diagnosis Obesity, morbid ([facility])- Primary Morbid obesity Type 2 diabetes mellitus without complication, with long-term current use of insulin ([facility]) Schizophrenia, unspecified type ([facility]) Chronic obstructive pulmonary disease, unspecified COPD type ([facility]) Hyperlipidemia, unspecified hyperlipidemia type ([facility]) Encounter for screening for malignant neoplasm of colon Chronic obstructive pulmonary disease, unspecified COPD type ([facility])- Primary Type 2 diabetes mellitus without complication, with long-term current use of insulin ([facility]) Tobacco abuse Tobacco use disorder Undifferentiated schizophrenia ([facility]) Type 2 diabetes mellitus without complication, with long-term current use of insulin ([facility])- Primary Thoracolumbar back pain Hidradenitis suppurativa of left axilla Type 2 diabetes mellitus without complication, with long-term current use of insulin ([facility])- Primary Obesity, morbid ([facility]) Morbid obesity Undifferentiated schizophrenia ([facility]) Hyperlipidemia, unspecified hyperlipidemia type ([facility]) Thoracolumbar back pain Hyperlipidemia, unspecified hyperlipidemia type ([facility])- Primary Chronic obstructive pulmonary disease, unspecified COPD type ([facility]) Type 2 diabetes mellitus without complication, with long-term current use of insulin ([facility]) Type 2 diabetes mellitus without complication, with long-term current use of insulin ([facility])- Primary Type II diabetes mellitus with complication ([facility]) Type II or unspecified type diabetes mellitus with unspecified complication, not stated as uncontrolled Anal pruritus Pruritus ani Acute otitis externa of both ears, unspecified type Type 2 diabetes mellitus without complication, with long-term current use of insulin ([facility]) Type II diabetes mellitus with complication ([facility]) Type II or unspecified type diabetes mellitus with unspecified complication, not stated as uncontrolled documented in this encounter [facility]* Diagnosis Type 2 diabetes mellitus without complication, with long-term current use of insulin ([facility])- Primary Type II diabetes mellitus with complication ([facility]) Type II or unspecified type diabetes mellitus with unspecified complication, not stated as uncontrolled Anal pruritus Pruritus ani Acute otitis externa of both ears, unspecified type documented in this encounter [facility]* Diagnosis Acute swimmer's ear of both sides- Primary Anal pruritus Pruritus ani documented in this encounter [facility]* Diagnosis Obesity, morbid ([facility])- Primary Morbid obesity Type 2 diabetes mellitus without complication, with long-term current use of insulin ([facility]) Schizophrenia, unspecified type ([facility]) Chronic obstructive pulmonary disease, unspecified COPD type ([facility]) Hyperlipidemia, unspecified hyperlipidemia type ([facility]) Encounter for screening for malignant neoplasm of colon Chronic obstructive pulmonary disease, unspecified COPD type ([facility])- Primary Type 2 diabetes mellitus without complication, with long-term current use of insulin ([facility]) Tobacco abuse Tobacco use disorder Undifferentiated schizophrenia ([facility]) Type 2 diabetes mellitus without complication, with long-term current use of insulin ([facility])- Primary Thoracolumbar back pain Hidradenitis suppurativa of left axilla Type 2 diabetes mellitus without complication, with long-term current use of insulin ([facility])- Primary Obesity, morbid ([facility]) Morbid obesity Undifferentiated schizophrenia ([facility]) Hyperlipidemia, unspecified hyperlipidemia type ([facility]) Thoracolumbar back pain Hyperlipidemia, unspecified hyperlipidemia type ([facility])- Primary Chronic obstructive pulmonary disease, unspecified COPD type ([facility]) Type 2 diabetes mellitus without complication, with long-term current use of insulin ([facility]) Type 2 diabetes mellitus without complication, with long-term current use of insulin ([facility])- Primary Type II diabetes mellitus with complication ([facility]) Type II or unspecified type diabetes mellitus with unspecified complication, not stated as uncontrolled Anal pruritus Pruritus ani Acute otitis externa of both ears, unspecified type Type 2 diabetes mellitus without complication, with long-term current use of insulin ([facility]) Type II diabetes mellitus with complication ([facility]) Type II or unspecified type diabetes mellitus with unspecified complication, not stated as uncontrolled Type II diabetes mellitus with complication ([facility]) Type II or unspecified type diabetes mellitus with unspecified complication, not stated as uncontrolled documented in this encounter [facility] HealthcareEvaluation note* Diagnosis Obesity, morbid ([facility])- Primary Morbid obesity Type 2 diabetes mellitus without complication, with long-term current use of insulin ([facility]) Schizophrenia, unspecified type ([facility]) Chronic obstructive pulmonary disease, unspecified COPD type ([facility]) Hyperlipidemia, unspecified hyperlipidemia type ([facility]) Encounter for screening for malignant neoplasm of colon Chronic obstructive pulmonary disease, unspecified COPD type ([facility])- Primary Type 2 diabetes mellitus without complication, with long-term current use of insulin ([facility]) Tobacco abuse Tobacco use disorder Undifferentiated schizophrenia ([facility]) Type 2 diabetes mellitus without complication, with long-term current use of insulin ([facility])- Primary Thoracolumbar back pain Hidradenitis suppurativa of left axilla Type 2 diabetes mellitus without complication, with long-term current use of insulin ([facility])- Primary Obesity, morbid ([facility]) Morbid obesity Undifferentiated schizophrenia ([facility]) Hyperlipidemia, unspecified hyperlipidemia type ([facility]) Thoracolumbar back pain Hyperlipidemia, unspecified hyperlipidemia type ([facility])- Primary Chronic obstructive pulmonary disease, unspecified COPD type ([facility]) Type 2 diabetes mellitus without complication, with long-term current use of insulin ([facility]) Type 2 diabetes mellitus without complication, with long-term current use of insulin ([facility])- Primary Type II diabetes mellitus with complication ([facility]) Type II or unspecified type diabetes mellitus with unspecified complication, not stated as uncontrolled Anal pruritus Pruritus ani Acute otitis externa of both ears, unspecified type Type 2 diabetes mellitus without complication, with long-term current use of insulin ([facility]) Type II diabetes mellitus with complication ([facility]) Type II or unspecified type diabetes mellitus with unspecified complication, not stated as uncontrolled Diabetes mellitus due to underlying condition with diabetic 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, unspecified whether detention insulin use ([facility])- Primary Pain due to onychomycosis of toenails of both feet Venous insufficiency Unspecified venous (peripheral) insufficiency documented in this encounter [facility] HealthcareEvaluation note* Diagnosis Obesity, morbid ([facility])- Primary Morbid obesity Type 2 diabetes mellitus without complication, with long-term current use of insulin ([facility]) Schizophrenia, unspecified type ([facility]) Chronic obstructive pulmonary disease, unspecified COPD type ([facility]) Hyperlipidemia, unspecified hyperlipidemia type ([facility]) Encounter for screening for malignant neoplasm of colon Chronic obstructive pulmonary disease, unspecified COPD type ([facility])- Primary Type 2 diabetes mellitus without complication, with long-term current use of insulin ([facility]) Tobacco abuse Tobacco use disorder Undifferentiated schizophrenia ([facility]) Type 2 diabetes mellitus without complication, with long-term current use of insulin ([facility])- Primary Thoracolumbar back pain Hidradenitis suppurativa of left axilla Type 2 diabetes mellitus without complication, with long-term current use of insulin ([facility])- Primary Obesity, morbid ([facility]) Morbid obesity Undifferentiated schizophrenia ([facility]) Hyperlipidemia, unspecified hyperlipidemia type ([facility]) Thoracolumbar back pain Hyperlipidemia, unspecified hyperlipidemia type ([facility])- Primary Chronic obstructive pulmonary disease, unspecified COPD type ([facility]) Type 2 diabetes mellitus without complication, with long-term current use of insulin ([facility]) Type 2 diabetes mellitus without complication, with long-term current use of insulin ([facility])- Primary Type II diabetes mellitus with complication ([facility]) Type II or unspecified type diabetes mellitus with unspecified complication, not stated as uncontrolled Anal pruritus Pruritus ani Acute otitis externa of both ears, unspecified type Type 2 diabetes mellitus without complication, with long-term current use of insulin ([facility]) Type II diabetes mellitus with complication ([facility]) Type II or unspecified type diabetes mellitus with unspecified complication, not stated as uncontrolled Type II diabetes mellitus with complication ([facility])- Primary Type II or unspecified type diabetes mellitus with unspecified complication, not stated as uncontrolled Vitamin D deficiency Insulin long-term use ([facility]) Encounter for long-term (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 of insulin Encounter for dietary consultation Class 3 severe obesity due to excess calories with serious comorbidity and body mass index (BMI) of 40.0 to 44.9 in adult ([facility]) documented in this encounter [facility] HealthcareEvaluation note* Diagnosis Obesity, morbid ([facility] Primary Morbid obesity Type 2 diabetes mellitus without complication, with long-term current use of insulin ([facility]) Schizophrenia, unspecified type ([facility]) Chronic obstructive pulmonary disease, unspecified COPD type ([facility]) Hyperlipidemia, unspecified hyperlipidemia type ([facility]) Encounter for screening for malignant neoplasm of colon Chronic obstructive pulmonary disease, unspecified COPD type ([facility])- Primary Type 2 diabetes mellitus without complication, with long-term current use of insulin ([facility]) Tobacco abuse Tobacco use disorder Undifferentiated schizophrenia ([facility]) Type 2 diabetes mellitus without complication, with long-term current use of insulin ([facility] Primary Thoracolumbar back pain Hidradenitis suppurativa of left axilla Type 2 diabetes mellitus without complication, with long-term current use of insulin ([facility])- Primary Obesity, morbid ([facility]) Morbid obesity Undifferentiated schizophrenia ([facility]) Hyperlipidemia, unspecified hyperlipidemia type ([facility]) Thoracolumbar back pain Hyperlipidemia, unspecified hyperlipidemia type ([facility])- Primary Chronic obstructive pulmonary disease, unspecified COPD type ([facility]) Type 2 diabetes mellitus without complication, with long-term current use of insulin ([facility]) Type 2 diabetes mellitus without complication, with long-term current use of insulin ([facility])- Primary Type II diabetes mellitus with complication ([facility]) Type II or unspecified type diabetes mellitus with unspecified complication, not stated as uncontrolled Anal pruritus Pruritus ani Acute otitis externa of both ears, unspecified type Type 2 diabetes mellitus without complication, with long-term current use of insulin ([facility]) Type II diabetes mellitus with complication ([facility]) Type II or unspecified type diabetes mellitus with unspecified complication, not stated as uncontrolled Type II diabetes mellitus with complication ([facility])- Primary Type II or unspecified type diabetes mellitus with unspecified complication, not stated as uncontrolled Chronic obstructive pulmonary disease, unspecified COPD type ([facility]) documented in this encounter [facility] HealthcareEvaluation note* Diagnosis Obesity, morbid ([facility])- Primary Morbid obesity Type 2 diabetes mellitus without complication, with long-term current use of insulin Schizophrenia, unspecified type Chronic obstructive pulmonary disease, unspecified COPD type ([facility]) Hyperlipidemia, unspecified hyperlipidemia type ([facility]) Encounter for screening for malignant neoplasm of colon Chronic obstructive pulmonary disease, unspecified COPD type ([facility])- Primary Type 2 diabetes mellitus without complication, with long-term current use of insulin Tobacco abuse Tobacco use disorder Undifferentiated schizophrenia ([facility]) Type 2 diabetes mellitus without complication, with long-term current use of insulin- Primary Obesity, morbid ([facility]) Morbid obesity Undifferentiated schizophrenia ([facility]) Hyperlipidemia, unspecified hyperlipidemia type ([facility]) Thoracolumbar back pain Hyperlipidemia, unspecified hyperlipidemia type ([facility])- Primary Chronic obstructive pulmonary disease, unspecified COPD type ([facility]) Type 2 diabetes mellitus without complication, with long-term current use of insulin Type 2 diabetes mellitus without complication, with long-term current use of insulin- Primary Type II diabetes mellitus with complication ([facility]) Type II or unspecified type diabetes mellitus with unspecified complication, not stated as uncontrolled Anal pruritus Pruritus ani Acute otitis externa of both ears, unspecified type Type 2 diabetes mellitus without complication, with long-term current use of insulin Type II diabetes mellitus with complication (CMS/HCC) Type II or unspecified type diabetes mellitus with unspecified complication, not stated as uncontrolled Type II diabetes mellitus with complication (CMS/HCC)- Primary Type II or unspecified type diabetes mellitus with unspecified complication, not stated as uncontrolled Chronic obstructive pulmonary disease, unspecified COPD type (CMS/HCC) Chronic obstructive pulmonary disease, unspecified COPD type (CMS/HCC)- Primary Undifferentiated schizophrenia (CMS/HCC) Class 3 severe obesity due to excess calories with serious comorbidity and body mass index (BMI) of 40.0 to 44.9 in adult Type 2 diabetes mellitus with hyperglycemia, without long-term current use of insulin (CMS/HCC) documented in this encounter [facility] Narrative No data available for this section [facility] Hospital Discharge instructions No data available for this section [facility] InstructionsNot on filedocumented in this encounter [facility] No data available for this section [facility] [employer] reason for referral (narrative)* Consultation (Routine) - Authorized Specialty Diagnoses / Procedures Referred By Vazquez silva Referred To Contact Neurology Diagnoses Type II diabetes mellitus with complication (CMS/HCC) Procedures HI OFFICE/OUTPATIENT NEW HIGH MDM 60 MINUTES Ashanti López NP [address] [place] [phone] Ministerio Ortiz MD [address] [place] [id number] Referral ID Status Reason Start Date Expiration Date Visits Requested Visits Authorized [id number] Authorized Specialty Services Required 04/07/2024 10/04/2024 1 [...] section and content) DATE CREATED AUTHOR 01/09/2018 [facility] DATE CREATED AUTHOR AUTHOR'S ORGANIZ ATION 05/06/2021 [facility] DATE CREATED AUTHOR AUTHOR'S ORGANIZ ATION 11/27/2022 [facility] DATE CREATED AUTHOR AUTHOR'S ORGANIZ ATION 08/06/[address] [facility] EPIC DATE CREATED AUTHOR AUTHOR'S ORGANIZ ATION 05/05/2024 [facility] DATE CREATED AUTHOR AUTHOR'S ORGANIZ ATION 12/01/[address] [facility] EPIC DATE CREATED AUTHOR AUTHOR'S ORGANIZ ATION 12/24/2024 [facility] Care Team (unrecognized sect ion and content) Match Up Worker Relationship Specialty Start Date End Date Horace Rollins MD [address] [place] [address] PCP - General Family Medicine 02/21/24 Ashnati López NP [address] [place] [address] Nurse Practitioner Family Medicine 02/21/24 Match Up Worker Relationship Specialty Start Date End Date Horace Rollins MD [address] [place] [address] PCP - General Family Medicine 02/21/24 Ashanti López NP [address] [place] [address] Nurse Practitioner Family Medicine 02/21/24 Match Up Worker Relationship Specialty Start Date End Date Horace Rollins MD [address] [place] [phone] PCP - General Family Medicine 02/21/24 Ashanti López NP [address] [place] [address] Nurse Practitioner Family Medicine 02/21/24 Match Up Worker Relationship Specialty Start Date End Date Horace Rollins MD [address] [place] [phone] PCP - General Family Medicine 02/21/24 Ashanti López NP [address] [place] [address] Nurse Practitioner Family Medicine 02/21/24 Match Up Worker Relationship Specialty Start Date End Date Horace Rollins MD [address] [place] [address] PCP - General Family Medicine 05/15/24 Ashanti López NP [address] [place] [address] Nurse Practitioner Family Medicine 02/21/24 Match Up Worker Relationship Specialty Start Date End Date Horace Rollins MD [address] [place] [address] PCP - General Family Medicine 05/15/24 Ashanti López NP [address] [place] [address] Nurse Practitioner Family Medicine 02/21/24 Match Up Worker Relationship Specialty Start Date End Date Horace Rollins MD [address] [place] [phone] PCP - General Family Medicine 05/15/24 Ashanti López NP [address] [place] [address] Nurse Practitioner Family Medicine 02/21/24 Match Up Worker Relationship Specialty Start Date End Date Horace Rollins MD [address] [place] [phone] PCP - General Family Medicine 05/15/24 Ashanti López NP [address] [place] [address] Nurse Practitioner Family Medicine 02/21/24 Match Up Worker Relationship Specialty Start Date End Date Horace Rollins MD [address] [place] [address] PCP - General Family Medicine 02/21/24 Ashanti López NP [address] [place] [address] Nurse Practitioner Family Medicine 02/21/24 Match Up Worker Relationship Specialty Start Date End Date Horace Rollisn MD [address] [place] [address] PCP - General Family Medicine 02/21/24 Ashanti López NP [address] [place] [address] Nurse Practitioner Family Medicine 02/21/24 Match Up Worker Relationship Specialty Start Date End Date Horace Rollins MD [address] [place] [address] PCP - General Family Medicine 02/21/24 Ashanti López NP [address] [place] [address] Nurse Practitioner Family Medicine 02/21/24 Match Up Worker Relationship Specialty Start Date End Date oHrace Rollins MD [address] [place] [address] PCP - General Family Medicine 05/15/24 Ashanti López NP [address] [place] [address] Nurse Practitioner Family Medicine 02/21/24 Match Up Worker Relationship Specialty Start Date End Date Horace Rollins MD [address] [place] [address] PCP - General Family Medicine 02/21/24 Ashanti López NP [address] [place] [address] Nurse Practitioner Family Medicine 02/21/24 Match Up Worker Relationship Specialty Start Date End Date Horace Rollins MD [address] [place] [address] PCP - General Family Medicine 02/21/24 Ashanti López NP [address] [place] [address] Nurse Practitioner Family Medicine 02/21/24 Match Up Worker Relationship Specialty Start Date End Date Horace Rollins MD [address] [place] [address] PCP - General Family Medicine 02/21/24 Ashanti López NP [address] [place] [address] Nurse Practitioner Family Medicine 02/21/24 Match Up Worker Relationship Specialty Start Date End Date Horace Rollins MD [address] [place] [address] PCP - General Family Medicine 05/15/24 Ashanti López NP [address] [place] [address] Nurse Practitioner Family Medicine 02/21/24 Match Up Worker Relationship Specialty Start Date End Date Horace Rollins MD [address] [place] [address] PCP - General Family Medicine 05/15/24 Ashanti López NP [address] [place] [address] Nurse Practitioner Family Medicine 02/21/24 Match Up Worker Relationship Specialty Start Date End Date Horace Rollins MD [address] [place] [address] PCP - General Family Medicine 05/15/24 Ashanti López NP [address] [place] [address] Nurse Practitioner Family Medicine 02/21/24 Match Up Worker Relationship Specialty Start Date End Date Horace Rollins MD [address] [place] [address] PCP - General Family Medicine 05/15/24 Ashanti López NP [address] [place] [address] Nurse Practitioner Family Medicine 02/21/24 Match Up Worker Relationship Specialty Start Date End Date Horace Rollins MD [address] [place] [address] PCP - General Family Medicine 05/15/24 Ashanti López NP [address] [place] [address] Nurse Practitioner Family Medicine 02/21/24 Match Up Worker Relationship Specialty Start Date End Date Horace Rollins MD [address] [place] [address] PCP - General Family Medicine 05/15/24 Ashanti López NP [address] [place] [address] Nurse Practitioner Family Medicine 02/21/24 Match Up Worker Relationship Specialty Start Date End Date Horace Rollins MD [address] [place] [address] PCP - General Family Medicine 05/15/24 Ashanti López NP [address] [place] [address] Nurse Practitioner Family Medicine 02/21/24 Match Up Worker Relationship Specialty Start Date End Date Horace Rollins MD [address] [place] [address] PCP - General Family Medicine 05/15/24 Ashanti López NP Nurse Practitioner Family Medicine 02/21/24 Match Up Worker Relationship Specialty Start Date End Date Horace Rollins MD [address] [place] [address] PCP - General Family Medicine 05/15/24 Ashanti López NP Nurse Practitioner Family Medicine 02/21/24 Match Up Worker Relationship Specialty Start Date End Date Horace Rollins MD [address] [place] [address] PCP - General Family Medicine 05/15/24 Ashanti López NP Nurse Practitioner Family Medicine 02/21/24 Reason for [...] Diagnoses Type II diabetes mellitus with complication ([facility]) Procedures HI OFFICE/OUTPATIENT NEW HIGH MDM 60 MINUTES Ashanti López NP [address] [facility] [place] [address] Phone: tel: fax: Zaria Lane MD [address], [address] [place] [address] Phone: tel: fax: Referral ID Status Reason Start Date Expiration Date V isits Requested Visits Authorized [id number] Closed Specialty Services Required 05/19/2024 11/15/2024 1 1 Reason Onset Date Comments Medication Problem 08/26/2024 Reason Onset Date Comments NEW PATIENT REFERRAL 05/28/2024 Reason Onset Date Comments Medication Problem 11/20/2024 Reason Comments Follow-up Muscle soreness FOR RECORDS PERTAINING TO PATIENTS WHO ARE [...] BE BASED ON THE PRIMARY CLINICAL RECORDS. [employer] provides no warranty or guarantee of the accuracy or completeness of information in this document.
[2025-01-10 15:59] LABS: Glucometer 452 mg/dL (74-106)
--- NOTE | 2025-01-10 15:59 | ECG_ITS ---
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 Measurements Intervals [place] Rate: 69 P: 53 [place]: 156 QRS: 71 QRSD: 106 T: 49 QT: 398 QTc: 417 Interpretive Statements 1100 Sinus rhythm 1102 Sinus arrhythmia 2440 Incomplete right bundle branch block 9130 borderline ECG Compared to ECG 06/26/2024 08:21:49 No significant changes Electronically Signed On 01-11-2025 13:59:32 EDT by AMY QUINTANILLA M.D.
--- NOTE | 2025-01-10 16:10 | ED.GENADUL1 ---
HPI HPI - General Adult General Chief complaint: Recheck/Abnormal Lab/Rx Stated complaint: SKIN IRRITATION, HIGH BLOOD SUGAR Time Seen by Provider: 01/10/25 15:46 Source: patient Mode of arrival: walk-in Limitations: no limitations History of Present Illness HPI narrative: Patient is a 54-year-old male who presents to the ER with acute on chronic complaints. Patient is type II diabetic and is supposed to be on an insulin medication but has not been able to afford it. States he has not taken any prescriptive medication for several months he did see his family doctor last month and states he has had chronic itching to his ears some discomfort and pain and drainage that has been longstanding. Patient notes that he has been getting more frequent boils to his skin he also notes at times a shocklike pain near his rectum but denies this at current type. States he has no difficulty urinating and actually urinates frequently secondary to likely high sugars. He denies any discharge or drainage. He denies diarrhea or abdominal pain. He is without any chest pain or shortness of breath and states he has not had alcohol or tobacco in over 10 months. Patient states he has about $0.30 currently for medications. He denies any difficulty with his living condition as he lives by himself and does have air conditioning with the current heat. He is alert and oriented x 4 GCS of 15 and appears in no distress with bilateral ear drainage noted Onset (ago): month(s) Radiation: Reports non-radiation Pain Consistency: Reports constant Relieving factors: Reports none Exacerbating factors: Reports none Associated symptoms: Reports denies other symptoms; Denies rash (Pruritic skin, no evidence of rash occasional scab from patient picking but noticed evidence of cellulitis he has likely chronic [place] nidus suppurativa in the axilla currently nontender and noninflamed) Treatments prior to arrival: Reports none Related Data Home Medications ?Medication ?Instructions ?Recorded ?Confirmed cariprazine 6 mg capsule (Vraylar) 6 mg PO DAILY 06/26/24 06/26/24 glipizide 10 mg tablet mg 10/23/24 insulin glargine 100 unit/mL (3 40 unit subcut QPM 10/23/24 10/23/24 mL) subcutaneous pen (Lantus Solostar U-100 Insulin) Allergies Allergy/AdvReac Type Severity Reaction Status Date / Time naproxen AdvReac Severe Palpitation Verified 06/26/24 07:56 s metformin AdvReac Mild constipatio Verified 06/26/24 07:56 n Opioid HPI Opioid Management Most Recent Opioid Data: Last Pain Scale 8 10/23/24, 23:37 Review of Systems ROS Constitutional Denies: fever or chills Eyes Denies: change in vision Ears, nose, mouth, and throat Reports: ear pain and ear discharge; Denies: tinnitus or vertigo Cardiovascular Denies: chest pain or palpitations Respiratory Denies: shortness of breath, cough, wheezing or stridor Gastrointestinal Reports: other (Patient denies any bleeding in stool or drainage , denies pain with BM ); Denies: abdominal pain, nausea or vomiting Genitourinary Reports: urinary frequency and urinary urgency; Denies: painful urination or genital pain Musculoskeletal Denies: back pain, neck pain or extremity pain Integumentary/Breast Reports: itching; Denies: redness, skin tenderness, skin swelling or changes in skin color Neurological Denies: headache or numbness in extremities Psychiatric Denies: anxiety or mood swings Endocrine Denies: excessive urination or excessive thirst Hematologic/Lymphatic Denies: easy bruising Allergic/Immunologic Denies: hives, throat swelling, facial swelling or wheezing PFSH PFSH Social History Little interest or pleasure in doing things: not at all Feeling down, depressed, or hopeless: not at all Exam Narrative Exam Narrative: Nurses notes and vital signs reviewed and patient is not hypoxic. General: no apparent distress. poor hygiene, Patient is resting comfortably on cart. Skin: Warm, dry, no pallor noted. Sporadic areas of scabbing likely from picking no evidence of cellulitis no pustule noted left axilla as evidence of likely Hydranidus suppurativa but not currently inflamed with no redness drainage or tenderness on palpation. Head: Normocephalic, atraumatic, there is no cranial nerve palsy. Neck: Supple, trachea mid-line, no tenderness, no lymphadenopathy Eye: Pupils are equal, round and reactive to light, EOMI Ears, Nose, Mouth, and Throat: Auricle and tragal tenderness present bilaterally bilateral canal swelling with white purulent drainage the tympanic membrane is not visible but the canals are not swollen shut he has no mastoid tenderness bilaterally but swelling is noted to auricles bilaterally . Patient notes his ears have been swollen and draining for 10 years. no evidence of thursh, Oral mucosa is moist, no posterior oropharynx erythema or hypertrophy, uvula is mid-line. Cardiovascular: Regular Rate and Rhythm Respiratory: Patient is in no distress, no accessory muscle use, lungs are clear to auscultation, no wheezing, rales or rhonchi. Chest Wall: no tenderness Back: non-tender, no CVA tenderness Musculoskeletal: normal ROM, no tenderness, no swelling GI: Normal bowel sounds, no tenderness to palpation, no masses appreciated. No rebound, guarding, or rigidity noted. Neurological: A&O x4 Psychiatric: Cooperative Constitutional Vital Signs, click to edit/add: Last Vital Signs Temp 97.7 F 01/10/25 15:41 Pulse 70 01/10/25 15:41 Resp 18 01/10/25 15:41 BP 121/61 01/10/25 15:41 Pulse Ox 97 01/10/25 15:41 Course Vital Signs Vital signs: Vital Signs Temperature 97.7 F 01/10/25 15:41 Pulse Rate 70 01/10/25 15:41 Respiratory Rate 18 01/10/25 15:41 Blood Pressure 121/61 01/10/25 15:41 Pulse Oximetry 97 01/10/25 15:41 Temperature 97.7 F 01/10/25 15:41 Pulse Rate 70 01/10/25 15:41 Respiratory Rate 18 01/10/25 15:41 Blood Pressure 121/61 01/10/25 15:41 Pulse Oximetry 97 01/10/25 15:41 Medical Decision Making [facility] Narrative Medical decision making narrative: Patient is on disability but does have housing he presents with social economic concerns specifically related to finances and ability to forward his medications. I am unsure with discussion at bedside if he has relayed these hardships to his family doctor but patient states he is not currently taking any prescribed medications his chief concern is elevated blood sugar and itching and discomfort at his ears which has been a chronic condition for approximately 10 years. He cannot recall the last time he was on eardrops or oral medications for this but states he likely will not be able to afford them from the pharmacy. He ambulates with a cane he denies any chest pain or shortness of breath he states that he has been able to be sober from alcohol and tobacco for at least over 10 months. He reports that the difficulty with his ears and skin occurred with the same time he was diagnosed with diabetes. Patient was started on Cipro HC topical eardrops for his bilateral otitis externa. We discussed the importance of glucose control with his history of diabetes and patient admits to seeing Dr. Xie and assistant bookkeeper specialist but did not relay to him that he was having difficulty financially filling his medications. We have provided him with a bottle to treat for his otitis externa but he will have to discuss his medication needs and compliance with his specialist. He may also contact his family doctor to discuss his needs as there are assistance programs in the community. His labs were reviewed and given that he does not have any mastoid tenderness or fever and the white blood cell count within normal limits we will hold on CT imaging we discussed concern for worsening otitis externa given the chronicity of his symptoms and he does not appear to have any facial palsy, TMJ tenderness or other worrisome symptoms for malignant otitis externa. We discussed his intermittent shock like symptoms in the rectum his urine was without evidence of infection. Abdomen is soft nontender. Recommend follow-up with GI for further evaluation of possible proctalgia fugax or other condition. Rectal exam today will be deferred given the chronicity of his symptoms and stable labs. Patient verbalized understanding that he needs to ask for help from his specialists regarding his financial situation and medications. His blood sugar was rechecked here and noted to be improved and he is encouraged to focus on his diet to increase his albumin and decrease his blood sugars pending medication compliance's. Patient verbalized understanding had no further concerns or questions. After IV insulin and liter of fluids his blood sugar improved to 264. The patient is to followup with primary care physician/ GI/ ENT in next 2-3 days or to return to the emergency department should any of the signs or symptoms worsen or new symptoms develop. Patient had questions answered. The patient agrees with the following Diagnosis and Treatment plan and the patient will be discharged home. Differential Diagnosis Differential Diagnosis: Otitis externa, malignant otitis externa, prostatitis, UTI, hyperglycemia Lab Data Lab results reviewed: Yes I reviewed the patient's lab results Lab results narrative: Reviewed laboratory studies white blood cell count within normal limits his sed rate and CRP are slightly elevated this is noted in the setting of his bilateral otitis externa Labs: Lab Results 06/28/25 06/28/25 Range/Units 15:57 16:02 WBC 7.0 (4.0-11.0) 10^3/uL RBC 4.31 L (4.70-6.10) 10^6/uL Hgb 14.0 (14.0-18.0) g/dL Hct 39.2 L (42.0-54.0) % MCV 91.0 (80.0-94.0) fL MCH 32.5 (25.9-34.0) pg MCHC 35.7 H (29.9-35.2) g/dL RDW 11.5 (11.0-15.0) % Plt Count 196 (150-450) 10^3/uL MPV 10.2 (9.5-13.5) fL Neut % (Auto) 58.9 (43.0-75.0) % Lymph % (Auto) 28.9 (20.5-60.0) % [place] % (Auto) 8.5 (1.7-12.0) % Eos % (Auto) 2.4 (0.9-7.0) % Baso % (Auto) 1.0 (0.2-2.0) % Neut # (Auto) 4.1 (1.4-6.5) 10^3/uL Lymph # (Auto) 2.0 (1.2-3.8) 10^3/uL [place] # (Auto) 0.6 (0.3-0.8) 10^3/uL Eos # (Auto) 0.2 (0.0-0.7) 10^3/uL Baso # (Auto) 0.1 (0.0-0.1) 10^3/uL Abs Immat Gran (auto) 0.02 (0.00-0.03) 10^3/uL Imm/Tot Granulo (auto) 0.3 (0.0-0.5) % ESR 38 H (<=20) mm/hr Sodium 138 (136-145) mmol/L Potassium 4.0 (3.5-5.1) mmol/L Chloride 101 (98-107) mmol/L Carbon Dioxide 29.9 (21.0-32.0) mmol/L Anion Gap 11.1 BUN 9.0 (7.0-18.0) mg/dL Creatinine 0.82 (0.70-1.30) mg/dL Est GFR ( Amer) >60 (>=60 mL/min/1.73m^2) Est GFR (Non-Af Amer) >60 (>=60 mL/min/1.73m^2) BUN/Creatinine Ratio 11.0 Glucose 429 H (74-106) mg/dL Lactate 2.0 (0.4-2.0) mmol/L Calcium 8.7 (8.5-10.1) mg/dL Total Bilirubin 0.3 (0.2-1.0) mg/dL AST 21 (15-37) U/L ALT 33 (16-63) U/L Alkaline Phosphatase 164 H (46-116) U/L Troponin I High Sens 7.4 (4.0-76.1) pg/mL C-Reactive Protein 0.60 H (<=0.50) mg/dL Total Protein 6.9 (6.4-8.2) g/dL Albumin 2.8 L (3.4-5.0) g/dL Globulin 4.1 g/dL Albumin/Globulin Ratio 0.7 Urine Color Lt. yellow (YELLOW) Urine Clarity Clear (CLEAR) Urine pH 6.0 (5.0-9.0) Ur Specific [place] <=1.005 A (1.005-1.025) Urine Protein Negative (NEG/TRACE) mg/dL Urine Glucose (UA) >=1000 A (NEGATIVE) mg/dL Urine Ketones Negative (NEGATIVE) mg/dL Urine Occult Blood Negative (NEGATIVE) Urine Nitrite Negative (NEGATIVE) Urine Bilirubin Negative (NEGATIVE) Urine Urobilinogen 0.2 (0.2-1.0) EU/dL Ur Leukocyte Esterase Negative (NEGATIVE) Acetone, Qual Negative (NEGATIVE) POC Glucose 452 H (74-106) mg/dL ECG Data Attestation: I personally reviewed and interpreted this ECG as follows: Interpretation: EKG interpretation: Emergency Department physician interpretation, normal sinus rhythm 69 bpm, no ectopy, no ST segment elevation, incomplete right bundle branch block. normal axis. Discharge Plan Discharge Chief Complaint: Recheck/Abnormal Lab/Rx Clinical Impression: Otitis externa of both ears, Elevated blood sugar, Proctalgia, Need for community resource, Non compliance w medication regimen Patient Disposition: Home, Self-Care Time of Disposition Decision: 17:45 Prescriptions / Home Meds: No Action Vraylar 6 mg capsule 6 mg PO DAILY glipizide 10 mg tablet insulin glargine [Lantus Solostar U-100 Insulin] 100 unit/mL (3 mL) insulin pen 40 unit subcut QPM Print Language: Chinese Instructions: Swimmer's Ear (ED), [place] (DC), Diabetic Hyperglycemia (ED) Additional Instructions: Please contact Dr. Xie and Dr. Stiles for follow up to discuss medication, compliance and community resources. Referrals: JAYSON XIE [Physician, Family Practice] - As soon as possible BHUPINDER LYLES [Physician, Gastroenterology] - As soon as possible Ana Chiu MD [Physician, Ear, Nose, Throat] - As soon as possible Horace Stiles MD [Primary Care Provider, Family Practice] - As soon as possible
[2025-01-10] MEDS: ACETAMINOPHEN 500 MG TABLET 1000 MG PO (16:32)
[2025-01-10] MEDS: 0.9 % SODIUM CHLORIDE 1,000 ML 999 ML IV (16:32)
[2025-01-10] MEDS: INSULIN REGULAR, HUMAN (100 UNIT/ML) 10 ML MDV 10 UNIT IV (16:47)
[2025-01-10] MEDS: CIPROFLOXACIN HCL/DEXAMETH 0.3%/0.1% OTIC SUSP 150 DROP/7.5 ML BOTTLE OT (16:48)
[2025-01-10 16:54] LABS: Basophils Absolute Auto 0.1 10^3/uL (0.0-0.1); Eosinophils Absolute Auto 0.2 10^3/uL (0.0-0.7); Eosinophils Percent Auto 2.4 % (0.9-7.0); Hematocrit 39.2 % (42.0-54.0); Immature Granulocytes Abs Auto 0.02 10^3/uL (0.00-0.03); Immature Granulocytes Pct Auto 0.3 % (0.0-0.5); Lymphocytes Percent Auto 28.9 % (20.5-60.0); Mean Corpuscular HGB Conc 35.7 g/dL (29.9-35.2); Mean Corpuscular Hemoglobin 32.5 pg (25.9-34.0); Mean Platelet Volume 10.2 fL (9.5-13.5); Monocytes Absolute Auto 0.6 10^3/uL (0.3-0.8); Monocytes Percent Auto 8.5 % (1.7-12.0); Neutrophils Absolute Auto 4.1 10^3/uL (1.4-6.5); Neutrophils Percent Auto 58.9 % (43.0-75.0); Platelet Count 196 10^3/uL (150-450); Red Blood Count 4.31 10^6/uL (4.70-6.10); Red Cell Distribution Width 11.5 % (11.0-15.0)
[2025-01-10 16:55] LABS: Bilirubin Urine NEGATIVE (NEGATIVE); Blood Urine NEGATIVE (NEGATIVE); Clarity Urine CLEAR (CLEAR); Color Urine LT. YELLOW (YELLOW); Glucose Urine UA >=1000 mg/dL (NEGATIVE); Ketones Urine NEGATIVE (NEGATIVE); Leukocyte Esterase Urine NEGATIVE (NEGATIVE); Nitrite Urine NEGATIVE (NEGATIVE); Protein Urine NEGATIVE (NEG/TRACE); Specific Gravity Urine <=1.005 (1.005-1.025); Urobilinogen Urine 0.2 EU/dL (0.2-1.0)
[2025-01-10 17:06] LABS: Acetone NEGATIVE (NEGATIVE); Erythrocyte Sedimentation Rate 38 mm/hr (<=20); Urine Microscopic Indicated NO
[2025-01-10 17:19] LABS: Alanine Aminotransferase 33 U/L (16-63); Albumin Globulin Ratio 0.7; Albumin Level 2.8 g/dL (3.4-5.0); Alkaline Phosphatase 164 U/L (46-116); Anion Gap 11.1; Aspartate Amino Transferase 21 U/L (15-37); Bilirubin Total 0.3 mg/dL (0.2-1.0); Calcium 8.7 mg/dL (8.5-10.1); Carbon Dioxide 29.9 mmol/L (21.0-32.0); Chloride 101 mmol/L (98-107); Estimated GFR (African America >60 (>=60 mL/min/1.73m^2); Estimated GFR (Non-African Ame >60 (>=60 mL/min/1.73m^2); Globulin 4.1 g/dL; Glucose 429 mg/dL (74-106); Sodium 138 mmol/L (136-145); Total Protein 6.9 g/dL (6.4-8.2); Troponin I High Sensitivity 7.4 pg/mL (4.0-76.1)
[2025-01-10 17:45] LABS: Glucometer 264 mg/dL (74-106)
[2025-01-10 18:08] VITALS: BP 135/87; PULSE 76; O2SAT 99
== END 2025-01-10 18:08 | disposition home or self-care (01) ==
PROVIDERS: Personal Emergency Response Attendant; Emergency Provider Emergency Medicine; PCP Family Medicine
DX: E11.65 Type 2 diabetes mellitus with hyperglycemia (principal); T38.3X6A Underdosing of insulin and oral hypoglycemic [antidiabetic] drugs, initial encounter; Z91.120 Patient's intentional underdosing of medication regimen due to financial hardship; L29.9 Pruritus, unspecified; H60.93 Unspecified otitis externa, bilateral; K62.89 Other specified diseases of anus and rectum; Z79.4 Long term (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 of insulin
CPT/HCPCS: 36415; 80053; 81003; 82009; 83605; 84484; 85025; 85652; 86140; 93005; 99285; J1817

== ENCOUNTER 2025-02-02 17:02 | Outpatient (OUT) | payer MEDICARE, SELFPAY ==
--- NOTE | 2025-02-02 | XR_ITS ---
[facility] [place] [address] Patient Name: JOHNNY HAMILTON MRN: [id number] date: 1970 Sex: M Assigned Patient Location: [facility] Current Patient Location: Accession/Order Number: [id number] Exam Date: 02/03/2025 09:09 Report Date: 02/03/2025 09:10 At the request of: CYNTHIA ROLLINS MD Procedure: XR cervical spine 2-3V CERVICAL SPINE 5 views: CLINICAL HISTORY: neck pain M54.2 COMPARISON: None FINDINGS: Vertebral body heights appear maintained. No significant disc height loss. Endplate degenerative changes C3-4 and C5-6. Facet joints demonstrate minimal degenerative change. No prevertebral soft tissue swelling. XR/XR cervical spine 2-3V IMPRESSION: DEGENERATIVE CHANGES INVOLVING THE CERVICAL SPINE WITHOUT SIGNIFICANT DISC HEIGHT LOSS. Impression dictated by: Francisco Tolbert Jr., D.OJessica 02/03/2025 9:10 AM Dictation Location: [place] [address] Electronically authenticated by: [id number] Y Date: 02/03/2025 09:10
== END 2025-02-02 17:03 | disposition home or self-care (01) ==
PROVIDERS: PCP Family Medicine; Visit Provider Family Medicine
DX: M54.2 Cervicalgia (principal)
CPT/HCPCS: 72040

== ENCOUNTER 2025-03-28 17:42 | Emergency (ER) | payer MEDICARE, SELFPAY ==
--- NOTE | 2025-03-28 17:46 | ECG_ITS ---
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
[2025-03-28 17:47] VITALS: BP 151/95; PULSE 119; TEMP 36.6; O2SAT 96; BMI 45.4
--- OUTSIDE RECORDS SUMMARY | 2025-03-28 18:01 | XMS_ITS | CCD ---
Author Organization [facility] Care Team Providers Care Wedding Designer Name Role Phone PIERRE, KUL B Unavailable [...] Unavailmaite GONZALEZ, DR JUNITO Galvan Attending Unavailabl sal GONZALEZ, DR JUNITO G Consulting Unavailabl SHANE Vogt Admitting Unavailable SHANE NATH Attending Unavailable SHAIKH SIMS H Primary Care Unavailable SHANE NATH Consulting Unavailable SHAIKH SIMS Attending Unavailable SHAIKH SIMS Attending Unavailable MARIBEL, . ASHANTIJAZ ELIZABETH Primary Care P hysician Horace Rollins MD Primary Care Provider Maribel CAR DROPPER, Ashanti Unavailable [phone] AMITA FERNANDEZ Attending Unavailable SHAIKH SIMS Primary Care Unavailable AMITA FERNANDEZ Attending Unavailable MARIBEL, ASHANTI Primary Care UnavailAMITA Ring Attending Unavailable MARIBEL, ASHANTI Primary Care UnavailHorace Telles MD Primary Care Provider [phone] Unavailable Primary Care Provider Unavailmaite López CAR DROPPER, Ashanti Unavailable [phone] Kota Pozo Attending Unavailab Kota Cox Admitting Unavailab Bam Chin Primary Care Unavailable Charlene TRANSPORTATION ECONOMICS TEACHER, Lisseth Unavailable ASHANTI LÓPEZ Attending UnavailHORACE Telles Attending Unavailable MARIBEL, ASHANTI Attending UnavailASHANTI Hernandez Attending UnavailCHUCKIE Doe Attending Unavailable HORACE ROLLINS Attending Unavailable ANTHONY SANTANA Attending Unavailable ASHANTI LÓPEZ Attending UnavailANTHONY Prasad Attending Unavailable ZARIA LANE Attending Unavailable ASHANTI LÓPEZ Referring Unavailabl e Charlene TRANSPORTATION ECONOMICS TEACHER, Lisseth Unavailable [phone] Allergies Allergy Classification Reported Allergen(s) Allergy Type Date of Onset Reaction(s) Facility (20 sources) metFORMIN; Translations: [metformin] Drug Allergy 3 Unknown (qualifier value), GI intolerance [facility] (20 sources) Amitriptyline Drug Allergy 3 Palpitations [facility] (1 source) Shellfish Drug allergy (disorder) 08-31-201 7 [facility] Repository Medications Current Medications Medication [...] Print Requisition Start Date: 10/16/11 Status: Ordered Blood Glucose Monitoring Suppl ([employer] Blood Glucose Meter) w/Device kit (8 sources) Start: 12-10-2024 Blood Glucose Monitoring Suppl ([employer] Blood Glucose Meter) w/Device kit Indications: Type II diabetes mellitus with complication (HCC) USE TWICE A DAY TO TEST BLOOD SUGARS 1 kit 1 12/10/2024 Active cariprazine 3 mg oral capsule (2 sources) Atypical Antipsychotic Start: 04-03-2024 take 1 capsule by mouth once daily Vraylar 3 mg oral capsule 3 mg = 1 cap(s), Oral, Daily, Refills(s) 0 Start Date: 04/03/24 Status: Ordered chlorproMAZINE (2 sources) Phenothiazine Start: 09-23-2010 Thorazine 25 mg Tab 50mg tid, Refills(s) 0 Start Date: 09/23/10 Status: Ordered Continuous Glucose Resource Director (FreeStyle Tenzin 2 [place]) device (1 source) Start: 07-28-2024 End: 07-28-2024 Continuous Glucose Resource Director (FreeStyle Tenzin 2 [place]) device Indications: Type II diabetes mellitus with complication (CMS/HCC) 1 Device 1 (one) time for 1 dose 1 each 07/28/2024 07/28/2024 Active Continuous Glucose Sensor (FreeStyle Tenzin 2 Sensor) [facility] (5 sources) Start: 07-28-2024 End: 10-26-2024 Continuous Glucose Sensor (FreeStyle Tenzin 2 Sensor) [facility] Indications: Type II diabetes mellitus with complication (CMS/HCC) 1 Bar every 14 (fourteen) days 6 each 1 07/28/2024 10/26/2024 Active cyclobenzaprine hydrochloride 10 mg oral tablet (4 sources) Muscle Relaxant Start: 01-19-2025 take 1 tablet by mouth three times daily as needed for muscle spasms cyclobenzaprine (Flexeril) 10 MG tablet Indications: Neck pain Take 1 tablet (10 mg) by mouth 3 (three) times a day as needed for muscle spasms 30 tablet 2 01/19/2025 Active dapagliflozin 5 mg oral tablet (11 [...] Print Requisition Start Date: 08/22/11 Status: Ordered fluconazole 100 mg oral tablet (7 sources) Azole Antifungal Start: 01-19-2025 fluconazole (Diflucan) 100 MG tablet Indications: Other infective chronic otitis externa of both ears 2 pills day one and then one pill daily for 13 days 15 tablet 01/19/2025 Active glipiZIDE er 10 mg 24 hr extended release oral tablet (20 sources) Sulfonylurea Start: 07-28-2024 End: 01-24-2025 take 1 tablet by mouth every twenty-four hours in the morning glipiZIDE XL (Glucotrol XL) 10 MG 24 hr tablet Indications: Type II diabetes mellitus with complication (HCC) TAKE 1 TABLET BY MOUTH IN THE MORNING AND 1 TABLET BEFORE BEDTIME. DO NOT CRUSH, CHEW, OR SPLIT. 180 tablet 01/05/2025 Active Start: 04-08-2024 End: 07-02-2025 take 1 [...] BID, # 60 tab(s), Refills(s) 0, Pharmacy: [facility] Start Date: 04/11/21 Status: Ordered hydrocortisone acetate 25 mg rectal suppository (5 sources) Corticosteroid Start: 04-08-2024 End: 04-18-2024 hydrocortisone (Anusol-HC) 25 MG suppository Indications: Anal pruritus Insert 1 suppository (25 mg) into the rectum in the morning and 1 suppository (25 mg) before bedtime. Do all this for 10 days. 12 suppository 04/08/2024 04/18/2024 Active hydrocortisone 10 mg/ml / neomycin 3.5 mg/ml / polymyxin b 01976 unt/ml otic suspension (1 source) Aminoglycoside Antibacterial, Polymyxin-class Antibacterial, Corticosteroid Start: 01-19-2025 End: 01-29-2025 neomycin-polymyxin- hydrocortisone (Cortisporin) 3.5-60023-2 otic suspension Indications: Other infective chronic otitis externa of both ears Administer 4 drops into each ear in the morning and 4 drops in the evening and 4 drops before bedtime. Do all this for 10 days. 10 mL 01/19/2025 01/29/2025 Active 3 ml insulin glargine 100 unt/ml pen injector (20 sources) Insulin Analog Start: 11-07-2024 End: 05-04-2025 insulin glargine (Lantus SoloStar) 100 UNIT/ML pen Indications: Type II diabetes mellitus with complication (HCC) INJECT 45 UNITS UNDER THE SKIN AT BEDTIME 45 mL 1 02/03/2025 05/04/2025 Active Start: 07-28-2024 End: 10-26-2024 insulin glargine [...] 1 Pad every 12 (twelve) hours Active LORazepam 0.5 mg oral tablet (2 sources) Benzodiazepine Start: 1 take 1 tablet by mouth three times daily as needed for anxiety Ativan 0.5 mg oral tablet = 1 tab(s), Oral, TID, PRN PRN for anxiety, tab(s), Refills(s) 0 Start Date: 09/23/10 Status: Ordered ofloxacin 3 mg/ml otic solution (2 sources) Quinolone Antimicrobial Start: 4 End: 4 ofloxacin (Floxin) 0.3 % otic solution Indications: Acute swimmer's ear of both sides Administer 10 drops into affected ear(s) Daily for 7 days 5 mL 04/08/2024 04/15/2024 Active OLANZapine 10 mg oral tablet (20 sources) Atypical Antipsychotic Start: 4 End: 4 olanzapine 10 mg Tab See Instructions, Refills(s) 0 Start Date: 04/03/24 Status: Ordered Start: 11-15-2022 olanzapine 20 mg oral tablet Refills(s) 0 Start Date: 11/15/22 Status: Ordered PARoxetine hydrochloride 30 mg oral tablet (2 sources) Serotonin Reuptake Inhibitor Start: 12-08-2011 take 1 tablet by mouth once daily paroxetine 30 mg Tab 30 mg = 1 tab(s), Oral, Daily, Refills(s) 0 Start Date: 5/25/12 Status: Ordered Start: 12-08-2011 take 1 tablet [...] Indications: Type II diabetes mellitus with complication (HCC) Take 1 tablet (45 mg) by mouth Daily 90 tablet 3 07/28/2024 07/28/2025 Active Start: 05-29-2024 End: 05-29-2025 take 1 tablet by mouth once daily pioglitazone (Actos) 15 MG tablet Indications: Type II diabetes mellitus with complication (CMS/HCC) Take 1 tablet (15 mg) by mouth Daily 30 tablet 11 05/29/2024 07/28/2024 Discontinued (Dose adjustment) predniSONE 50 mg oral tablet (2 sources) Start: 01-19-2025 End: 01-25-2025 take 1 tablet by mouth once daily predniSONE (Deltasone) 50 MG tablet Indications: Neck pain Take 1 tablet (50 mg) by mouth Daily for 6 days 6 tablet 01/19/2025 01/25/2025 Active QUEtiapine 100 mg oral tablet (2 sources) [...] dysfunction., # 30 tab(s), Refills(s) 3, Pharmacy: [facility], 170, cm, 11/15/21 9:38:00 EDT, Height/Length Dosing, 116.6, kg, 11/15/21 9:38:00 EDT, Weight Dosing Start Date: 11/15/21 Status: Ordered 60 actuat testosterone 20.25 mg/actuat topical gel (2 sources) Androgen Start: 08-23-2021 AndroGel Pump 20.25 mg/1.25 g (1.62%) transdermal gel = 2 pump, Topical, qAM, # 75 gram, Refills(s) 1, Pharmacy: [facility], 170, cm, 07/05/21 10:18:00 [...] dysfunction, # 30 tab(s), Refills(s) 1, Pharmacy: [facility], 170, cm, 01/17/22 10:42:00 EDT, Height/Length Dosing, 116.6, kg, 01/17/22 10:42:00 EDT, Weight Dosing Start Date: 01/17/22 Status: Ordered Xanomeline-Trospiu m Chloride (Cobenfy) 50-20 MG capsule (20 sources) Xanomeline-Trosp i um Chloride (Cobenfy) 50-20 [...] Print Requisition Start Date: 12/08/11 Status: Ordered ciprofloxacin 3 mg/ml / dexamethasone 1 mg/ml otic suspension (3 sources) Corticosteroid, Quinolone Antimicrobial Start: 01-19-2025 End: 01-29-2025 ciprofloxacin-dexA METHasone (CiproDEX) otic suspension Indications: Other infective chronic otitis externa of both ears Administer 4 drops into each ear in the morning and 4 drops in the evening and 4 drops before bedtime. Do all this for 10 days. 7.5 mL 01/19/2025 01/19/2025 Discontinued empagliflozin 10 mg oral tablet (4 sources) Sodium-Glucose Cotransporter 2 Inhibitor Start: 04-07-2024 End: 04-07-2025 take 1 tablet by mouth once daily empagliflozin (Jardiance) 10 MG Indications: Type II diabetes mellitus with complication ([facility]) Take 1 tablet (10 mg) by mouth Daily 30 tablet 11 04/07/2024 04/08/2024 Discontinued (Cost of medication) Ipratropium [...] Print Requisition Start Date: 08/22/11 Status: Ordered levoFLOXacin 250 mg oral tablet (6 sources) Quinolone Antimicrobial Start: 01-19-2025 End: 01-29-2025 take 2 tablets by mouth once daily levoFLOXacin (Levaquin) 250 MG tablet Indications: Other infective chronic otitis externa of both ears Take 2 tablets (500 mg) by mouth Daily for 10 days 20 tablet 01/19/2025 01/19/2025 Discontinued Start: 04-03-2024 End: 04-17-2024 take 1 tablet by mouth every twenty-four hours Levaquin 500 mg Tab 500 mg = 1 tab(s), Oral, q24hr, X 14 day(s), # 14 tab(s), Refills(s) 0, Pharmacy: [facility]/pharmacy #[id number], 170, cm, 04/03/24 10:50:00 EDT, Height/Length Dosing, 120, kg, 04/03/24 10:50:00 EDT, Weight Dosing Start Date: 04/03/24 Stop Date: 04/17/24 Status: Ordered naproxen 500 mg oral tablet (2 sources) Nonsteroidal Anti-inflammatory Drug Start: 10-16-2011 take 1 tablet by mouth twice daily naproxen 500 mg Tab 500 mg = 1 tab(s), Oral, BID, Take one tab by mouth two times a day, # 14 tab(s), Refills(s) 0, 0, Print Requisition Start Date: 10/16/11 Status: Ordered Semaglutide,0.2 5 or 0.5MG/DOS, (Ozempic, 0.25 or 0.5 MG/DOSE,) 2 MG/3ML solution pen-injector (14 sources) Start: 07-28-2024 End: 01-19-2025 Semaglutide,0.25 or 0.5MG/DOS, (Ozempic, 0.25 or 0.5 MG/DOSE,) 2 MG/3ML solution pen-injector Indications: Type II diabetes mellitus with complication (HCC) Inject 0.5 mg under the skin every 7 (seven) days 6 mL 1 07/28/2024 01/19/2025 Discontinued Start: 07-28-2024 Semaglutide,0. 25 or 0.5MG/DOS, (Ozempic, 0.25 or 0.5 MG/DOSE,) 2 MG/3ML solution pen-injector Indications: Type II diabetes mellitus with complication (HCC) Inject 0.5 mg under the skin every 7 (seven) days 6 mL 1 07/28/2024 Active Start: 07-28-2024 Semaglutide,0. 25 or 0.5MG/DOS, (Ozempic, [...] days 6 mL 1 07/28/2024 10/26/2024 Active Problems Active Problems Problem Classification Problem Date [...] source) Long-term current use of insulin; Translations: [custodial (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 of insulin] 07-28-2024 Episodic Other [...] Chronic Other ear and sense organ disorders (2 sources) Hearing loss of left ear; Translations: [Other specified hearing loss, left ear] 01-19-2025 Chronic Other ear and sense organ disorders (1 source) Acute otitis externa; Translations: [Swimmer's ear, bilateral] 04-08-2024 Episodic Other ear and sense organ disorders (3 sources) Chronic infective otitis externa; Translations: [Other infective otitis externa, bilateral] 01-19-2025 Episodic Other endocrine disorders (4 sources) Testicular hypofunction; Translations: [Testicular hypofunction] Onset: 11-15-2021 Chronic Other endocrine disorders (5 sources) Male hypogonadism 07-05-2021 Chronic Other gastrointestinal disorders (4 sources) Incontinence of feces; Translations: [Full incontinence of feces] Onset: 11-15-2022 Episodic Other male genital disorders (10 sources) [...] Chronic Other nutritional; endocrine; and metabolic disorders (13 sources) Severe obesity; Translations: [Class 3 severe obesity due to excess calories with serious comorbidity and body mass index (BMI) of 40.0 to 44.9 in adult ([facility])] Onset: 06-26-2023 07-28-2024 Chronic Residual codes; unclassified (2 sources) Pain; Translations: [Pain, unspecified] Onset: 11-15-2022 Episodic Residual codes; unclassified (3 sources) Electric shock type pain 11-15-2022 Episodic Schizophrenia and other psychotic disorders (20 sources) Schizoaffective disorder, unspecified; 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] Onset: 01-29-2017 06-26-2023 Chronic Spondylosis; intervertebral disc disorders; other back problems (12 sources) Degeneration of lumbar intervertebral disc; Translations: [DDD (degenerative disc disease), lumbar] Onset: 10-21-2024 10-21-2024 Chronic Spondylosis; intervertebral disc disorders; other back problems (20 sources) Backache; Translations: [Thoracolumbar back pain] Onset: 11-29-2023 Resolved: 10-21-2024 11-29-2023 Episodic Substance-related disorders (1 source) Nicotine dependence, cigarettes, [...] 03-24-2022 Episodic Other aftercare (5 sources) Other detention (current) drug therapy; Translations: [OTH [facility] CURRENT DRUG THERAPY] Onset: 12-08-2021 Episodic Other aftercare (1 source) terminal 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 (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 of insulin; Translations: [[facility] CURRENT USE OF INSULIN] Onset: 03-27-2022 Episodic [...] Translations: [CONSTIPATION UNSPECIFIED] Onset: 03-27-2022 Episodic Other inflammatory condition of skin (20 sources) Pruritus ani; Translations: [Pruritus ani] Resolved: 12-01-2024 03-06-2024 Episodic Other nervous system disorders (3 sources) [...] Translations: [Tobacco use] Onset: 10-08-2023 10-08-2023 Episodic Results Test Name Value Interpretation Reference Range Facility XR CERVICAL SPINE 2-3Von [address] [address] XRay Report Signed Patient: JOHNNY VERMA MR#: [id number] : 1970 Acct:[id number] Age/Sex: 54 / M ADM Date: 02/02/25 Loc: RAD Attending Dr: Horace Rollins M.D. Ordering Physician: Horace Rollins M.D. Date of Service: 02/02/25 Procedure(s): XR cervical spine 2-3V Accession Number(s): [id number] cc: Horace Rollins M.D. The [place] [phone] Patient Name: JOHNNY VERMA MRN: [facility]:[id number] date: 1970 Sex: M Assigned Patient Location: RAD Current Patient Location: Accession/Order Number: [id number] Exam Date: 02/03/2025 09:09 Report Date: 02/03/2025 09:10 At the request of: HORACE ROLLINS MD Procedure: XR cervical spine 2-3V CERVICAL SPINE 5 views: CLINICAL HISTORY: neck pain M54.2 COMPARISON: None FINDINGS: Vertebral body heights appear maintained. No significant disc height loss. Endplate degenerative changes C3-4 and C5-6. Facet joints demonstrate minimal degenerative change. No prevertebral soft tissue swelling. XR/XR cervical spine 2-3V IMPRESSION: DEGENERATIVE CHANGES INVOLVING THE CERVICAL SPINE WITHOUT SIGNIFICANT DISC HEIGHT LOSS. Impression dictated by: Francisco Tolbert Jr., D.O. 02/03/2025 9:10 AM Dictation Location: [place] [address] Electronically authenticated by: [id number] Y Date: 02/03/2025 09:10 Dictated By: Francisco Tolbert M.D. 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 Ordering Physician: Horace Rollins M.D. Date of Service: 02/02/25 Procedure(s): XR cervical spine 2-3V Accession Number(s): [id number] cc: Horace Rollins M.D. [place] [id number] Patient Name: JOHNNY VERMA MRN: [id number] date: 1970 Sex: M Assigned Patient Location: [facility] Current Patient Location: Accession/Order Number: [id number] Exam Date: 02/03/2025 09:09 Report Date: 02/03/2025 09:10 At the request of: HORACE ROLLINS MD Procedure: XR cervical spine 2-3V CERVICAL SPINE 5 views: CLINICAL HISTORY: neck pain M54.2 COMPARISON: None FINDINGS: Vertebral body heights appear maintained. No significant disc height loss. Endplate degenerative changes C3-4 and C5-6. Facet joints demonstrate minimal degenerative change. No prevertebral soft tissue swelling. XR/XR cervical spine 2-3V IMPRESSION: DEGENERATIVE CHANGES INVOLVING THE CERVICAL SPINE WITHOUT SIGNIFICANT DISC HEIGHT LOSS. Impression dictated by: Francisco Tolbert Jr., D.OJessica 02/03/2025 9:10 AM Dictation Location: [place] [address] Electronically authenticated by: [id number] Y Date: 02/03/2025 09:10 Dictated By: Francisco Tolbert M.D. 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 XR CERVICAL SPINE 2-3VOrdere d By: Radiologist Radiology on 02-03-2025 [facility] Work Phone: Glucose (Bld) [Mass/Vol]on 0 07-28-2024 Glucose Blood, POC 484 mg/dL [facility] No Panel Informationon 07-28 Interpretation and review of laboratory results Abnormal formerly [facility] POCT glycosylated hemoglobin (Hb A1C) docked deviceon 07-28-2024 HbA1c (Bld) [Mass fraction] 11.5 % [facility] HbA1c (Bld) [Mass fraction]o n 07-02-2024 Interpretation and review of laboratory results Abnormal formerly [facility] Laboratory - Hematology and Cell countson 07-02-2024 HbA1c (Bld) [Mass fraction] 12.6 % [facility] Urology Office/Clinic Noteon 05-02-2024 Urology Office/Clinic Note [...] all in the future. Order sent to [facility]. 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 This needs to be w male Ordered: Complex E&M Add on G2211 E&M of Est. Patient Moderate 30-39 Min 13361 Follow-up With When Contact Information Schedule with male MD for ICI teaching once pt picks up medication from [facility] Additional Instructions: Patient Education Erectile Dysfunction Problem [...] mRNA [id number] vax 12/11/2020 Recorded 2022-11-15: [id number] [facility] Comment on above: Result Comment: Elec tronically Signed By: AMITA FERNANDEZ PA-C\.br\Date and Time Signed: 05/02/24 14:57 EDT Ambulatory Visit Summaryon 1 Ambulatory Visit Summary Ambulatory Visit Summary JOY JOHNNY D :1970 Visit Date:04/29/2024 Ambulatory Visit Instructions Your [...] for choosing us for your care. Normal [facility] MLR HEMOGLOBIN A1Con 024 Glucose [Mass/Vol] 237 mg/dL [facility] HbA1c (Bld) [Mass fraction] 9.9 % High 4.5 - 6.2 % [facility] Comment on above: ADA RECOMMENDED LIMI T 4.0 - 6.0 ADA THERAPEUTIC TARGET < 7.0 ACTION SUGGESTED > 7.0 Interpretation and review of laboratory results Abnormal [facility] Urology Office/Clinic Noteon 04-03-2024 Urology Office/Clinic Note [...] pain: denies Sexual complaints: severe ED per [facility] Review of Systems PHQ Score Initial Depression [...] E&M of Est. Patient Moderate 30-39 Min 24868 Urnls Dip Stick Auto w/o Microscopy POC 40144 2. ED (erectile dysfunction) (N52.1: Erectile dysfunction [...] E&M of Est. Patient Moderate 30-39 Min 87764 Urnls Dip Stick Auto w/o Microscopy POC 57120 3. 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 Patient Moderate 30-39 Min 13918 Urnls Dip Stick Auto w/o Microscopy POC 05990 4. Urinary frequency (R35.0: Frequency of micturition) IPSS 13 (freq 5, urge 3, noct 5) However pt reports significant fluid intake. I'm drinking all day long. Goes through 1 gallon milk every 2 days. Also drinks Alex-aid, water, coffee, and beer. We discussed bladder irritants and typical voiding patterns in relation to excessive fluid intak (more content not included)... Normal [facility] Comment on above: Result Comment: Elec tronically Signed By: REBECCA OLIVEIRA, AMITA Huang\.br\Date and Time Signed: 04/03/24 13:04 EDT CBC AUTO DIFFon 11-24-2022 BASO # 0.1 103/ul Normal 0.0-0.1 [facility] Comment on above: Performed By: #### C BC #### [facility] [address] [place] [address] Dr. Kenna Thomas Basophils/100 WBC (Bld) 1.1 % Normal 0.2-2.0 [facility] Comment on above: Performed By: #### C BC #### [facility] [address] [place] [address] Dr. Kenna Thomas EO # 0.4 103/ul Normal 0.0-0.7 [facility] Comment on above: Performed By: #### C BC #### [facility] [address] [place] [address] Dr. Kenna Thomas Eosinophils/100 WBC (Bld) 4.6 % Normal 0.9-7.[address] [facility] Comment on above: Performed By: #### C BC #### [facility] [address] [place] [address] Dr. Kenna Thomas Erythrocyte distribution width (RBC) [Ratio] 11.5 % Normal 11.0-15.[address] [facility] Comment on above: Performed By: #### C BC #### [facility] [address] [place] [address] Dr. Kenna Thomas Hematocrit (Bld) [Volume fraction] 44.3 % Normal 42.0-54.0 [facility] Comment on above: Performed By: #### C BC #### [facility] [address] [place] [address] Dr. Kenna Thomas Hemoglobin (Bld) [Mass/Vol] 15.8 g/dL Normal 14.0-18.[address] [facility] Comment on above: Performed By: #### C BC #### [facility] [address] [place] [address] Dr. Kenna Thomas IG # 0.03 10e3/ul Normal 0.00-0.03 [facility] Comment on above: Performed By: #### C BC #### [facility] [address] [place] [address] Dr. Kenna Thomas IG % 0.4 % Normal 0.0-0.5 [facility] Comment on above: Performed By: #### C BC #### [facility] [address] [place] [address] Dr. Kenna Thomas LYMPH # 1.8 103/ul Normal 1.2-3.[address] [facility] Comment on above: Performed By: #### C BC #### [facility] [address] [place] [address] Dr. Kenna Thomas Lymphocytes/100 WBC (Bld) 23.3 % Normal 20.5-60.[address] [facility] Comment on above: Performed By: #### C BC #### [facility] [address] [place] [address] Dr. Kenna Thomas MANUAL DIFF REQ NO Normal [facility] Comment on above: Performed By: #### C BC #### [facility] [address] [place] [address] Dr. Kenna Thomas MCH (RBC) [Entitic mass] 34.1 pg Critically high 25.9-34.[address] [facility] Comment on above: Performed By: #### C BC #### [facility] [address] [place] [address] Dr. Kenna Thomas MCHC (RBC) [Mass/Vol] 35.7 g/dL Critically high 29.9-35.[address] [facility] Comment on above: Performed By: #### C BC #### [facility] [address] [place] [address] Dr. Kenna Thomas MCV (RBC) [Entitic vol] 95.5 fL Critically high 80.0-94.0 [facility] Comment on above: Performed By: #### C BC #### [facility] [address] [place] [address] Dr. Kenna Thomas MONO # 0.7 103/ul Normal 0.3-0.8 [facility] Comment on above: Performed By: #### C BC #### [facility] [address] [address] [address] Kenna Thomas Monocytes/100 WBC (Bld) 8.4 % Normal 1.7-12.0 [facility] Comment on above: Performed By: #### C BC #### [facility] [address] [place] [address] Dr. Kenna Thomas NEUT # 4.9 103/ul Normal 1.4-6.5 [facility] Comment on above: Performed By: #### C BC #### [facility] [address] [place] [address] Dr. Kenna Thomas Neutrophils/100 WBC (Bld) 62.2 % Normal 43.0-75.0 [facility] Comment on above: Performed By: #### C BC #### [facility] [address] [place] [address] Dr. Kenna Thomas Platelet mean volume (Bld) [Entitic vol] 9.6 fL Normal 9.5-13.5 [facility] Comment on above: Performed By: #### C BC #### [facility] [address] [place] [address] Dr. Kenna Thomas PLT 251 103/ul Normal 150-[address] [facility] Comment on above: Performed By: #### C BC #### [facility] [address] [place] [address] Dr. Kenna Thomas RBC 4.64 106/ul Critically low 4.70-6.10 [facility] Comment on above: Performed By: #### C BC #### [facility] [address] [place] [address] Dr. Kenna Thomas WBC 7.9 103/ul Normal 4.0-11.0 [facility] Comment on above: Performed By: #### C BC #### [facility] [address] [address] [address] Kenna Thomas GLYCOHEMOGLOBIN A1Con 2022 ADA RECOMMENDATION SEE BELOW Normal [facility] Comment on above: Result Comment: ADA RECOMMENDED LIMIT 4.0 - 6.0 ADA THERAPEUTIC TARGET < 7.0 ACTION SUGGESTED > 7.0 Performed By: #### G ELGIN, LIPID #### [facility] [address] [place] [address] Dr. Kenna Thomas Glucose [Mass/Vol] 171 mg/dL Normal [facility] Comment on above: Performed By: #### G ELGIN, LIPID #### [facility] [address] [place] [address] Dr. Kenna Thomas HbA1c (Bld) [Mass fraction] 7.6 % Critically high 4.5-6.2 [facility] Comment on above: Performed By: #### G ELGIN, LIPID #### [facility] [address] [place] [address] Dr. Kenna Thomas PROF 14(COMP METB)on 023 Albumin [Mass/Vol] 3.4 g/dL Normal 3.4-5.[address] [facility] Comment on above: Performed By: #### C MP #### [facility] [address] [place] [address] Dr. Kenna Thomas Albumin/Globulin [Mass ratio] 0.7 {ratio} Normal [facility] Comment on above: Performed By: #### C MP #### [facility] [address] [place] [address] Dr. Kenna Thomas ALP [Catalytic activity/Vol] 166 U/L Critically high 46-[address] [facility] Comment on above: Performed By: #### C MP #### [facility] [address] [place] [address] Dr. Kenna Thomas ALT [Catalytic activity/Vol] 46 U/L Normal 16-[address] [facility] Comment on above: Performed By: #### C MP #### [facility] [address] [address] [address] Kenna Thomas Anion gap [Moles/Vol] 12.2 mmol/L Normal [facility] Comment on above: Performed By: #### C MP #### [facility] [address] [address] [address] Kenna Thomas AST [Catalytic activity/Vol] 33 U/L Normal 15-37 [facility] Comment on above: Performed By: #### C MP #### [facility] [address] [address] [address] Kenna Thomas Bilirubin [Mass/Vol] 0.3 mg/dL Normal 0.2-1.0 [facility] Comment on above: Performed By: #### C MP #### [facility] [address] [place] [address] Dr. Kenna Thomas Calcium [Mass/Vol] 9.6 mg/dL Normal 8.5-10.[address] [facility] Comment on above: Performed By: #### C MP #### [facility] [address] [place] [address] Dr. Kenna Thomas Chloride [Moles/Vol] 99 mmol/L Normal 98-107 [facility] Comment on above: Performed By: #### C MP #### [facility] [address] [address] [address] Kenna Thomas CO2 [Moles/Vol] 30.4 mmol/L Normal 21.0-32.0 [facility] Comment on above: Performed By: #### C MP #### [facility] [address] [address] [address] Kenna Thomas Creatinine [Mass/Vol] 1.01 mg/dL Normal 0.70-1.[address] [facility] Comment on above: Performed By: #### C MP #### [facility] [address] [address] [address] Kenna Thomas EGFR-AF LITHUANIAN >60 Normal >=60 [facility] Comment on above: Performed By: #### C MP #### [facility] [address] [address] [address] Kenna Thomas EGFR-NON AF LITHUANIAN >60 Normal >=60 [facility] Comment on above: Performed By: #### C MP #### [facility] [address] [address] [address] Kenna Thomas Globulin (S) [Mass/Vol] 5.2 g/dL Normal [facility] Comment on above: Performed By: #### C MP #### [facility] [address] [address] [address] Kenna Thomas Glucose [Mass/Vol] 208 mg/dL Critically high 74-106 [facility] Comment on above: Performed By: #### C MP #### [facility] [address] [address] [address] Kenna Thomas Potassium [Moles/Vol] 4.6 mmol/L Normal 3.5-5.1 [facility] Comment on above: Performed By: #### C MP #### [facility] [address] [place] [address] Dr. Kenna Thomas Protein [Mass/Vol] 8.6 g/dL Critically high 6.4-8.2 [facility] Comment on above: Performed By: #### C MP #### [facility] [address] [place] [address] Dr. Kenna Thomas Sodium [Moles/Vol] 137 mmol/L Normal 136-[address] [facility] Comment on above: Performed By: #### C MP #### [facility] [address] [address] [address] Kenna Thomas Urea nitrogen [Mass/Vol] 7.0 mg/dL Normal 7.0-18.0 [facility] Comment on above: Performed By: #### C MP #### [facility] [address] [address] [address] Kenna Thomas Urea nitrogen/Creatinine [Mass ratio] 6.9 mg/mg Normal [facility] Comment on above: Performed By: #### C MP #### [facility] [address] [place] [address] Dr. Kenna Thomas VIT B12 AND FOLATEon 023 Cobalamin (Vitamin B12) [Mass/Vol] 841.0 pg/mL Normal 193.0-986.0 [facility] Comment on above: Performed By: #### B 12FOL #### [facility] [address] [place] [address] Dr. Kenna Thomas FOLATE 17.30 ng/mL Normal 8.60-58.90 [facility] Comment on above: Performed By: #### B 12FOL #### [facility] [address] [place] [address] Dr. Kenna Thomas GLYCOHEMOGLOBIN A1Con 2021 ADA RECOMMENDATION SEE BELOW Normal [facility] Comment on above: Result Comment: ADA RECOMMENDED LIMIT 4.0 - 6.0 ADA THERAPEUTIC TARGET < 7.0 ACTION SUGGESTED > 7.0 Performed By: #### A 1C #### [facility] [address] [place] [address] Dr. Kenna Thomas Glucose [Mass/Vol] 148 mg/dL Normal [facility] Comment on above: Performed By: #### A 1C #### [facility] [address] [place] [address] Dr. Kenna Thomas HbA1c (Bld) [Mass fraction] 6.8 % Critically high 4.5-6.2 [facility] Comment on above: Performed By: #### A 1C #### [facility] [address] [place] [address] Dr. Kenna Thomas CBC AUTO DIFFon 03-24-2022 BASO # 0.1 103/ul Normal 0.0-0.1 [facility] Comment on above: Performed By: #### G ELGIN, LIPID #### [facility] [address] [place] [address] Dr. Kenna Thomas Basophils/100 WBC (Bld) 1.0 % Normal 0.2-2.[address] [facility] Comment on above: Performed By: #### G ELGIN, LIPID #### [facility] [address] [place] [address] Dr. Kenna Thomas EO # 0.5 103/ul Normal 0.0-0.7 [facility] Comment on above: Performed By: #### G ELGIN, LIPID #### [facility] [address] [address] [address] Kenna Thomas Eosinophils/100 WBC (Bld) 4.0 % Normal 0.9-7.0 [facility] Comment on above: Performed By: #### G ELGIN, LIPID #### [facility] [address] [place] [address] Dr. Kenna Thomas Erythrocyte distribution width (RBC) [Ratio] 12.3 % Normal 11.0-15.0 [facility] Comment on above: Performed By: #### G ELGIN, LIPID #### [facility] [address] [place] [address] Dr. Kenna Thomas Hematocrit (Bld) [Volume fraction] 40.5 % Critically low 42.0-54.0 [facility] Comment on above: Performed By: #### G ELGIN, LIPID #### [facility] [address] [place] [address] Dr. Kenna Thomas Hemoglobin (Bld) [Mass/Vol] 14.4 g/dL Normal 14.0-18.0 [facility] Comment on above: Performed By: #### G ELGIN, LIPID #### [facility] [address] [place] [address] Dr. Kenna Thomas IG # 0.05 10e3/ul Critically high 0.00-0.03 [facility] Comment on above: Performed By: #### G ELGIN, LIPID #### [facility] [address] [place] [address] Dr. Kenna Thomas IG % 0.4 % Normal 0.0-0.5 [facility] Comment on above: Performed By: #### G ELGIN, LIPID #### [facility] [address] [place] [address] Dr. Kenna Thomas LYMPH # 3.0 103/ul Normal 1.2-3.8 [facility] Comment on above: Performed By: #### G ELGIN, LIPID #### [facility] [address] [place] [address] Dr. Kenna Thomas Lymphocytes/100 WBC (Bld) 24.6 % Normal 20.5-60.0 [facility] Comment on above: Performed By: #### G ELGIN, LIPID #### [facility] [address] [address] [address] Kenna Thomas MANUAL DIFF REQ NO Normal [facility] Comment on above: Performed By: #### G ELGIN, LIPID #### [facility] [address] [address] [address] Kenna Thomas MCH (RBC) [Entitic mass] 34.0 pg Normal 25.9-34.0 [facility] Comment on above: Performed By: #### G ELGIN, LIPID #### [facility] [address] [address] [address] Kenna Thomas MCHC (RBC) [Mass/Vol] 35.6 g/dL Critically high 29.9-35.2 [facility] Comment on above: Performed By: #### G ELGIN, LIPID #### [facility] [address] [place] [address] Dr. Kenna Thomas MCV (RBC) [Entitic vol] 95.7 fL Critically high 80.0-94.0 [facility] Comment on above: Performed By: #### G ELGIN, LIPID #### [facility] [address] [place] [address] Dr. Kenna Thomas MONO # 0.9 103/ul Critically high 0.3-0.8 [facility] Comment on above: Performed By: #### G ELGIN, LIPID #### [facility] [address] [place] [address] Dr. Kenna Thomas Monocytes/100 WBC (Bld) 7.6 % Normal 1.7-12.0 [facility] Comment on above: Performed By: #### G ELGIN, LIPID #### [facility] [address] [address] [address] Kenna Thomas NEUT # 7.5 103/ul Critically high 1.4-6.5 [facility] Comment on above: Performed By: #### G ELGIN, LIPID #### [facility] [address] [place] [address] Dr. Kenna Thomas Neutrophils/100 WBC (Bld) 62.4 % Normal 43.0-75.0 [facility] Comment on above: Performed By: #### G ELGIN, LIPID #### [facility] [address] [place] [address] Dr. Kenna Thomas Platelet mean volume (Bld) [Entitic vol] 10.5 fL Normal 9.5-13.5 [facility] Comment on above: Performed By: #### G ELGIN, LIPID #### [facility] [address] [place] [address] Dr. Kenna Thomas PLT 219 103/ul Normal 150-450 [facility] Comment on above: Performed By: #### G ELGIN, LIPID #### [facility] [address] [place] [address] Dr. Kenna Thomas RBC 4.23 106/ul Critically low 4.70-6.10 [facility] Comment on above: Performed By: #### G ELGIN, LIPID #### [facility] [address] [place] [address] Dr. Kenna Thomas WBC 12.0 103/ul Critically high 4.0-11.0 [facility] Comment on above: Performed By: #### G ELGIN, LIPID #### [facility] [address] [place] [address] Dr. Kenna Thomas PROF 14(COMP METB)on 022 Albumin [Mass/Vol] 3.2 g/dL Critically low 3.4-5.0 [facility] Comment on above: Performed By: #### C MP #### [facility] [address] [place] [address] Dr. Kenna Thomas Albumin/Globulin [Mass ratio] 0.8 {ratio} Normal [facility] Comment on above: Performed By: #### C MP #### [facility] [address] [place] [address] Dr. Kenna Thomas ALP [Catalytic activity/Vol] 167 U/L Critically high 46-116 [facility] Comment on above: Performed By: #### C MP #### [facility] [address] [place] [address] Dr. Kenna Thomas ALT [Catalytic activity/Vol] 30 U/L Normal 16-63 [facility] Comment on above: Performed By: #### C MP #### [facility] [address] [address] [address] Kenna Thomas Anion gap [Moles/Vol] 12.0 mmol/L Normal [facility] Comment on above: Performed By: #### C MP #### [facility] [address] [address] [address] Kenna Thomas AST [Catalytic activity/Vol] 12 U/L Critically low 15-37 [facility] Comment on above: Performed By: #### C MP #### [facility] [address] [address] [address] Kenna Thomas Bilirubin [Mass/Vol] 0.2 mg/dL Normal 0.2-1.0 [facility] Comment on above: Performed By: #### C MP #### [facility] [address] [place] [address] Dr. Kenna Thomas Calcium [Mass/Vol] 8.2 mg/dL Critically low 8.5-10.1 [facility] Comment on above: Performed By: #### C MP #### [facility] [address] [place] [address] Dr. Kenna Thomas Chloride [Moles/Vol] 102 mmol/L Normal 98-107 [facility] Comment on above: Performed By: #### C MP #### [facility] [address] [address] [address] Kenna Thomas CO2 [Moles/Vol] 24.3 mmol/L Normal 21.0-32.0 [facility] Comment on above: Performed By: #### C MP #### [facility] [address] [address] [address] Kenna Thomas Creatinine [Mass/Vol] 1.03 mg/dL Normal 0.70-1.30 [facility] Comment on above: Performed By: #### C MP #### [facility] [address] [address] [address] Kenna Thomas EGFR-AF LITHUANIAN >60 Normal >=60 [facility] Comment on above: Performed By: #### C MP #### [facility] [address] [address] [address] Kenna Thomas EGFR-NON AF LITHUANIAN >60 Normal >=60 [facility] Comment on above: Performed By: #### C MP #### [facility] [address] [address] [address] Kenna Thomas Globulin (S) [Mass/Vol] 3.8 g/dL Normal [facility] Comment on above: Performed By: #### C MP #### [facility] [address] [address] [address] Kenna Thomas Glucose [Mass/Vol] 258 mg/dL Critically high 74-106 [facility] Comment on above: Performed By: #### C MP #### [facility] [address] [address] [address] Kenna Thomas Potassium [Moles/Vol] 3.3 mmol/L Critically low 3.5-5.1 [facility] Comment on above: Performed By: #### C MP #### [facility] [address] [address] [address] Kenna Thomas Protein [Mass/Vol] 7.0 g/dL Normal 6.4-8.[address] [facility] Comment on above: Performed By: #### C MP #### [facility] [address] [address] [address] Kenna Thomas Sodium [Moles/Vol] 135 mmol/L Critically low 136-[address] [facility] Comment on above: Performed By: #### C MP #### [facility] [address] [address] [address] Kenna Thomas Urea nitrogen [Mass/Vol] 8.0 mg/dL Normal 7.0-18.0 [facility] Comment on above: Performed By: #### C MP #### [facility] [address] [address] [address] Kenna Thomas Urea nitrogen/Creatinine [Mass ratio] 7.8 mg/mg Normal [facility] Comment on above: Performed By: #### C MP #### [facility] [address] [address] [address] Kenna Thomas XR ABD FLAT UP_PA [...] PERICO DIAMOND Date: 2022-03-24 01:01 Normal [facility] CBC AUTO DIFFon 03-11-2022 BASO # 0.1 103/ul Normal 0.0-0.[address] [facility] Comment on above: Performed By: #### G ELGIN, LIPID #### [facility] [address] [address] [address] Kenna Thomas Basophils/100 WBC (Bld) 1.1 % Normal 0.2-2.[address] [facility] Comment on above: Performed By: #### G ELGIN, LIPID #### [facility] [address] [address] [address] Kenna Thomas EO # 0.6 103/ul Normal 0.0-0.[address] [facility] Comment on above: Performed By: #### G ELGIN, LIPID #### [facility] [address] [address] [address] Kenna Thomas Eosinophils/100 WBC (Bld) 5.3 % Normal 0.9-7.0 [facility] Comment on above: Performed By: #### G ELGIN, LIPID #### [facility] [address] [place] [address] Dr. Kenna Thomas Erythrocyte distribution width (RBC) [Ratio] 12.0 % Normal 11.0-15.0 [facility] Comment on above: Performed By: #### G ELGIN, LIPID #### [facility] [address] [place] [address] Dr. Kenna Thomas Hematocrit (Bld) [Volume fraction] 41.8 % Critically low 42.0-54.0 [facility] Comment on above: Performed By: #### G ELGIN, LIPID #### [facility] [address] [place] [address] Dr. Kenna Thomas Hemoglobin (Bld) [Mass/Vol] 14.7 g/dL Normal 14.0-18.0 [facility] Comment on above: Performed By: #### G ELGIN, LIPID #### [facility] [address] [place] [address] Dr. Kenna Thomas IG # 0.07 10e3/ul Critically high 0.00-0.03 [facility] Comment on above: Performed By: #### G ELGIN, LIPID #### [facility] [address] [place] [address] Dr. Kenna Thomas IG % 0.6 % Critically high 0.0-0.5 [facility] Comment on above: Performed By: #### G ELGIN, LIPID #### [facility] [address] [place] [address] Dr. Kenna Thomas LYMPH # 2.4 103/ul Normal 1.2-3.8 [facility] Comment on above: Performed By: #### G ELGIN, LIPID #### [facility] [address] [place] [address] Dr. Kenna Thomas Lymphocytes/100 WBC (Bld) 21.2 % Normal 20.5-60.0 [facility] Comment on above: Performed By: #### G ELGIN, LIPID #### [facility] [address] [place] [address] Dr. Kenna Thomas MANUAL DIFF REQ NO Normal [facility] Comment on above: Performed By: #### G ELGIN, LIPID #### [facility] [address] [address] [address] Kenna Thomas MCH (RBC) [Entitic mass] 33.1 pg Normal 25.9-34.[address] [facility] Comment on above: Performed By: #### G ELGIN, LIPID #### [facility] [address] [address] [address] Kenna Thomas MCHC (RBC) [Mass/Vol] 35.2 g/dL Normal 29.9-35.[address] [facility] Comment on above: Performed By: #### G ELGIN, LIPID #### [facility] [address] [address] [address] Kenna Thomas MCV (RBC) [Entitic vol] 94.1 fL Critically high 80.0-94.[address] [facility] Comment on above: Performed By: #### G ELGIN, LIPID #### [facility] [address] [place] [address] Dr. Kenna Thomas MONO # 0.9 103/ul Critically high 0.3-0.8 [facility] Comment on above: Performed By: #### G ELGIN, LIPID #### [facility] [address] [place] [address] Dr. Kenna Thomas Monocytes/100 WBC (Bld) 8.3 % Normal 1.7-12.[address] [facility] Comment on above: Performed By: #### G ELGIN, LIPID #### [facility] [address] [place] [address] Dr. Kenna Thomas NEUT # 7.1 103/ul Critically high 1.4-6.5 [facility] Comment on above: Performed By: #### G ELGIN, LIPID #### [facility] [address] [place] [address] Dr. Kenna Thomas Neutrophils/100 WBC (Bld) 63.5 % Normal 43.0-75.[address] [facility] Comment on above: Performed By: #### G ELGIN, LIPID #### [facility] [address] [place] [address] Dr. Kenna Thomas Platelet mean volume (Bld) [Entitic vol] 9.9 fL Normal 9.5-13.[address] [facility] Comment on above: Performed By: #### G ELGIN, LIPID #### [facility] [address] [address] [address] Kenna Thomas PLT 230 103/ul Normal 150-450 [facility] Comment on above: Performed By: #### G ELGIN, LIPID #### [facility] [address] [place] [address] Dr. Kenna Thomas RBC 4.44 106/ul Critically low 4.70-6.10 [facility] Comment on above: Performed By: #### G ELGIN, LIPID #### [facility] [address] [place] [address] Dr. Kenna Thomas WBC 11.2 103/ul Critically high 4.0-11.0 [facility] Comment on above: Performed By: #### G ELGIN, LIPID #### [facility] [address] [place] [address] Dr. Kenna Thomas LACTATE/LACTIC ACIDon 2021 Lactate [Moles/Vol] 2.0 mmol/L Critically high 0.4-1.9 [facility] Comment on above: Performed By: #### L ACT #### [facility] [address] [place] [address] Dr. Kenna Thomas MAGNESIUMon 03-11-2022 Magnesium [Mass/Vol] 1.7 mg/dL Critically low 1.8-2.4 [facility] Comment on above: Performed By: #### G ELGIN, LIPID #### [facility] [address] [place] [address] Dr. Kenna Thomas PROF 14(COMP METB)on 022 Albumin [Mass/Vol] 3.3 g/dL Critically low 3.4-5.[address] [facility] Comment on above: Performed By: #### G ELGIN, LIPID #### [facility] [address] [place] [address] Dr. Kenna Thomas Albumin/Globulin [Mass ratio] 0.8 {ratio} Normal [facility] Comment on above: Performed By: #### G ELGIN, LIPID #### [facility] [address] [address] [address] Kenna Thomas ALP [Catalytic activity/Vol] 156 U/L Critically high 46-116 [facility] Comment on above: Performed By: #### G ELGIN, LIPID #### [facility] [address] [address] [address] Kenna Thomas ALT [Catalytic activity/Vol] 28 U/L Normal 16-63 [facility] Comment on above: Performed By: #### G ELGIN, LIPID #### [facility] [address] [address] [address] Kenna Thomas Anion gap [Moles/Vol] 15.0 mmol/L Normal [facility] Comment on above: Performed By: #### G ELGIN, LIPID #### [facility] [address] [place] [address] Dr. Kenna Thomas AST [Catalytic activity/Vol] 20 U/L Normal 15-37 [facility] Comment on above: Performed By: #### G ELGIN, LIPID #### [facility] [address] [address] [address] Kenna Thomas Bilirubin [Mass/Vol] 0.5 mg/dL Normal 0.2-1.0 [facility] Comment on above: Performed By: #### G ELGIN, LIPID #### [facility] [address] [place] [address] Dr. Kenna Thomas Calcium [Mass/Vol] 9.0 mg/dL Normal 8.5-10.[address] [facility] Comment on above: Performed By: #### G ELGIN, LIPID #### [facility] [address] [place] [address] Dr. Kenna Thomas Chloride [Moles/Vol] 100 mmol/L Normal 98-107 [facility] Comment on above: Performed By: #### G ELGIN, LIPID #### [facility] [address] [address] [address] Kenna Thomas CO2 [Moles/Vol] 25.6 mmol/L Normal 21.0-32.0 [facility] Comment on above: Performed By: #### G ELGIN, LIPID #### [facility] [address] [place], [place] [id number] Dr. Kenna Thomas Creatinine [Mass/Vol] 0.83 mg/dL Normal 0.70-1.30 [facility] Comment on above: Performed By: #### G ELGIN, LIPID #### [facility] [address] [place] [address] Dr. Kenna Thomas EGFR-AF LITHUANIAN >60 Normal >=60 [facility] Comment on above: Performed By: #### G ELGIN, LIPID #### [facility] [address] [place] [address] Dr. Kenna Thomas EGFR-NON AF LITHUANIAN >60 Normal >=60 [facility] Comment on above: Performed By: #### G ELGIN, LIPID #### [facility] [address] [place] [address] Dr. Kenna Thomas Globulin (S) [Mass/Vol] 4.0 g/dL Normal [facility] Comment on above: Performed By: #### G ELGIN, LIPID #### [facility] [address] [place] [address] Dr. Kenna Thomas Glucose [Mass/Vol] 170 mg/dL Critically high 74-106 [facility] Comment on above: Performed By: #### G ELGIN, LIPID #### [facility] [address] [place] [address] Dr. Kenna Thomas Potassium [Moles/Vol] 3.6 mmol/L Normal 3.5-5.1 [facility] Comment on above: Performed By: #### G ELGIN, LIPID #### [facility] [address] [place] [address] Dr. Kenna Thomas Protein [Mass/Vol] 7.3 g/dL Normal 6.4-8.2 [facility] Comment on above: Performed By: #### G ELGIN, LIPID #### [facility] [address] [place] [address] Dr. Kenna Thomas Sodium [Moles/Vol] 137 mmol/L Normal 136-145 [facility] Comment on above: Performed By: #### G ELGIN, LIPID #### [facility] [address] [place] [address] Dr. Kenna Thomas Urea nitrogen [Mass/Vol] 10.0 mg/dL Normal 7.0-18.0 [facility] Comment on above: Performed By: #### G ELGIN, LIPID #### [facility] [address] [place] [address] Dr. Kenna Thomas Urea nitrogen/Creatinine [Mass ratio] 12.0 mg/mg Normal [facility] Comment on above: Performed By: #### G ELGIN, LIPID #### [facility] [address] [address] [address] Kenna Thomas GLYCOHEMOGLOBIN A1Con 2021 ADA RECOMMENDATION SEE BELOW Normal [facility] Comment on above: Result Comment: ADA RECOMMENDED LIMIT 4.0 - 6.0 ADA THERAPEUTIC TARGET < 7.0 ACTION SUGGESTED > 7.0 Performed By: #### G ELGIN, LIPID #### [facility] [address] [place] [address] Dr. Kenna Thomas Glucose [Mass/Vol] 154 mg/dL Normal [facility] Comment on above: Performed By: #### G ELGIN, LIPID #### [facility] [address] [place] [address] Dr. Kenna Thomas HbA1c (Bld) [Mass fraction] 7.0 % Critically high 4.5-6.2 [facility] Comment on above: Performed By: #### G ELGIN, LIPID #### [facility] [address] [place] [address] Dr. Kenna Thomas LIPID PROFILEon 01-09-2022 CHOL-HDL RATIO NORM SEE BELOW Normal [facility] Comment on above: Result Comment: 3.3 - 4.4 LOW RISK 4.4 - 7.1 AVERAGE RISK 7.1 - 11.0 MODERATE RISK >11.0 HIGH RISK Performed By: #### L IPID #### [facility] [address] [place] [address] Dr. Kenna Thomas Cholesterol [Mass/Vol] 186 mg/dL Normal <=200 [facility] Comment on above: Performed By: #### L IPID #### [facility] [address] [place] [address] Dr. Kenna Thomas Cholesterol in HDL [Mass/Vol] 31 mg/dL Critically low 40-60 [facility] Comment on above: Performed By: #### L IPID #### [facility] [address] [address] [address] Kenna Thomas Cholesterol in LDL [Mass/Vol] 91.2 mg/dL Normal [facility] Comment on above: Performed By: #### L IPID #### [facility] [address] [address] [address] Kenna Thomas Cholesterol.total/Cho lesterol in HDL [Mass ratio] 6.0 {ratio} Normal [facility] Comment on above: Performed By: #### L IPID #### [facility] [address] [address] [address] Kenna Thomas HDL NORMAL > or = 60 mg/dl - LO W CARDIOVASCULAR RISK <40 mg/dl - HIGH CARDIOVASCULAR RISK Normal [facility] Comment on above: Performed By: #### L IPID #### [facility] [address] [address] [address] Kenna Thomas LDL CALC NORMAL SEE BELOW Normal [facility] Comment on above: Result Comment: <100 mg/dl OPTIMAL 100 - 129 mg/dl NEAR OR ABOVE OPTIMAL 130 - 159 mg/dl BORDERLINE HIGH 160 - 189 mg/dl HIGH >190 mg/dl VERY HIGH Performed By: #### L IPID #### [facility] [address] [address] [address] Kenna Thomas Triglyceride [Mass/Vol] 319 mg/dL Critically high <=[address] [facility] Comment on above: Performed By: #### L IPID #### [facility] [address] [address] [address] Kenna Thomas VLDL CALC 63.8 mg/dL Normal [facility] Comment on above: Performed By: #### L IPID #### [facility] [address] [place] [address] Dr. Kenna Thomas TESTOSTERONE, TOTALon 2021 Testosterone [Mass/Vol] 447 ng/dL Normal 264-[address] [facility] Comment on above: Result Comment: Adul t male reference interval is based on a population of healthy nonobese males (BMI <30) between 19 and 39 years old. brady Camacho.al. JCEM 2017,102;8844-9149. PMID: [id number]. Performed By: #### T ESTTOT #### [facility] [address] [address] [address] Kenna Thomas GLUCOSE BLOODon 12-08-2021 Glucose [Mass/Vol] 147 mg/dL Critically high 74-106 [facility] Comment on above: Performed By: #### G ELGIN, LIPID #### [facility] [address] [address] [address] Kenna Thomas LIPID PROFILEon 12-08-2021 CHOL-HDL RATIO NORM SEE BELOW Normal [facility] Comment on above: Result Comment: 3.3 - 4.4 LOW RISK 4.4 - 7.1 AVERAGE RISK 7.1 - 11.0 MODERATE RISK >11.0 HIGH RISK Performed By: #### G ELGIN, LIPID #### [facility] [address] [address] [address] Kenna Thomas Cholesterol [Mass/Vol] 140 mg/dL Normal <=200 [facility] Comment on above: Performed By: #### G ELGIN, LIPID #### [facility] [address] [place] [address] Dr. Kenna Thomas Cholesterol in HDL [Mass/Vol] 33 mg/dL Critically low 40-60 [facility] Comment on above: Performed By: #### G ELGIN, LIPID #### [facility] [address] [address] [address] Kenna Thomas Cholesterol in LDL [Mass/Vol] 55.4 mg/dL Normal [facility] Comment on above: Performed By: #### G ELGIN, LIPID #### [facility] [address] [address] [address] Kenna Thomas Cholesterol.total/Cho lesterol in HDL [Mass ratio] 4.2 {ratio} Normal [facility] Comment on above: Performed By: #### G ELGIN, LIPID #### [facility] [address] [address] [address] Kenna Thomas HDL NORMAL > or = 60 mg/dl - LO W CARDIOVASCULAR RISK <40 mg/dl - HIGH CARDIOVASCULAR RISK Normal [facility] Comment on above: Performed By: #### G ELGIN, LIPID #### [facility] [address] [place], [place] [address] Dr. Kenna Thomas LDL CALC NORMAL SEE BELOW Normal [facility] Comment on above: Result Comment: <100 mg/dl OPTIMAL 100 - 129 mg/dl NEAR OR ABOVE OPTIMAL 130 - 159 mg/dl BORDERLINE HIGH 160 - 189 mg/dl HIGH >190 mg/dl VERY HIGH Performed By: #### G ELGIN, LIPID #### [facility] [address] [place], [place] [address] Dr. Kenna Thomas Triglyceride [Mass/Vol] 258 mg/dL Critically high <=150 [facility] Comment on above: Performed By: #### G ELGIN, LIPID #### [facility] [address] [address] [address] Kenna Thomas VLDL CALC 51.6 mg/dL Normal [facility] Comment on above: Performed By: #### G ELGIN, LIPID #### [facility] [address] [address] [address] Kenna Thomas Comp Metabolic Profon 2016 (cont.) Normal [facility] Comment on above: Result Comment: Aver age GFR for 40-49 years old: 99 mL/min/1.73sq mChronic Kidney Disease: <60 mL/min/1.73sq mKidney failure: <15 mL/min/1.73sq meGFR calculated using average adult body mass. Additional eGFR calculator available at:http://[email or web address].Runivermag/multiple_crcl_2012.htmPerformed at [facility] [address] [place] [address] Performed By: #### C P ####[facility] [place] [address] Alanine aminotransferase (ALT) 27 U/L Normal 5-41 [facility] Comment on above: Performed By: #### C P ####[facility] [place] [address] Albumin 3.7 g/dL Normal 3.5-5.2 [facility] Comment on above: Performed By: #### C P ####[address] [address] Albumin/Globulin Ratio 1.1 {ratio} Normal 1.0-2.5 [facility] Comment on above: Performed By: #### C P ####[address] [address] Alkaline Phos 125 U/L Normal 40-129 [facility] Comment on above: Performed By: #### C P ####[address] [address] Anion gap 14 mmol/L Normal 9-17 [facility] Comment on above: Performed By: #### C P ####[address] [address] Aspartate aminotransferase (AST) 20 U/L Normal <40 [facility] Comment on above: Performed By: #### C P ####[address] [address] Bilirubin Ql (U) 0.28 mg/dL Low 0.3-1.2 [facility] Comment on above: Performed By: #### C P ####[address] [address] Calcium 9.0 mg/dL Normal 8.6-10.4 [facility] Comment on above: Performed By: #### C P ####[address] [address] Chloride 98 mmol/L Normal 98-107 [facility] Comment on above: Performed By: #### C P ####[address] [address] CO2 27 mmol/L Normal 20-31 [facility] Comment on above: Performed By: #### C P ####[facility] [place] [address] Creatinine 0.74 mg/dL Normal 0.70-1.20 [facility] Comment on above: Performed By: #### C P ####[address] [address] eGFR (non-black) mL/min/{1.73_m2} Normal >60 [facility] Comment on above: Performed By: #### C P ####[address] [address] Glucose mass conc 142 mg/dL High 70-99 [facility] Comment on above: Performed By: #### C P ####[address] [address] Potassium molar conc 4.2 mmol/L Normal 3.7-5.3 [facility] Comment on above: Performed By: #### C P ####[address] [address] Protein 7.0 g/dL Normal 6.4-8.3 [facility] Comment on above: Performed By: #### C P ####[address] [address] Sodium 139 mmol/L Normal 135-144 [facility] Comment on above: Performed By: #### C P ####[address] [address] Urea nitrogen 9 mg/dL Normal 6-20 [facility] Comment on above: Performed By: #### C P ####[address] [address] BUN/CRE Ratio NOT REPORTED Normal 9-20 [facility] Comment on above: Performed By: #### C P ####[address] [place] [address] Staging: NOT REPORTED Normal [facility] Comment on above: Performed By: #### C P ####[address] [address] Drug Scr, Abuse, Uron 2016 Amphetamine(s),Ur Negative Normal NEG [facility] Comment on above: Result Comment: (Pos itive cutoff 1000 ng/mL) Performed By: #### U AKOMAL DAU ####[address] [address] Barbiturate(s),Ur Negative Normal NEG [facility] Comment on above: Result Comment: (Pos itive cutoff 200 ng/mL) Performed By: #### U KOMAL Pride YAZMIN ####[address] [address] Base excess Negative Normal NEG [facility] Comment on above: Result Comment: (Pos itive cutoff 300 ng/mL) Performed By: #### KOMAL Hays DAU ####[address] [address] Benzodiazepine(s) Negative Normal NEG [facility] Comment on above: Result Comment: (Pos itive cutoff 200 ng/mL) Performed By: #### U KOMAL Pride YAZMIN ####[address] [address] Cannabinoid(s),Ur Negative Normal NEG [facility] Comment on above: Result Comment: (Pos itive cutoff 50 ng/mL) Performed By: #### U AKOMAL YAZMIN ####[address] [address] Interpretive Info Assay provides medical screening only. The absence of expected drug(s) and/or Normal [facility] Comment on above: Result Comment: meta bolite(s) may indicate diluted or adulterated urine, limitations of testing or timing of collection.Testing for legal purposes should be confirmed by another method. To request confirmation of test result, please call the lab within 7 days of sample submission.Performed at [facility] [address] [place] [address] Performed By: #### U A UMMARIONO YAZMIN ####[address] [place] [address] Opiate(s), Ur Negative Normal NEG [facility] Comment on above: Result Comment: (Pos itive cutoff 300 ng/mL) Performed By: #### U A UMMARIONO YAZMIN ####[address] [address] Oxycodone, Urine Negative Normal NEG [facility] Comment on above: Result Comment: (Pos itive cutoff 100 ng/mL) Performed By: #### U A, UMICAO, YAZMIN ####[address] [address] Phencyclidine, Ur Negative Normal NEG [facility] Comment on above: Result Comment: (Pos itive cutoff 25 ng/mL) Performed By: #### U A UMICAO, YAZMIN ####[address] [address] Urine, methadone presence Negative Normal NEG [facility] Comment on above: Result Comment: (Pos itive cutoff 300 ng/mL) Performed By: #### U A, UMICAO, YAZMIN ####[address] [address] Buprenorphrine, Ur NOT REPORTED Normal NEG [facility] Comment on above: Performed By: #### U A, UMICAO, YAZMIN ####[address] [place] [address] MDMA, Urine NOT REPORTED Normal NEG [facility] Comment on above: Performed By: #### KOMAL Hays YAZMIN ####[address] [address] Methamphetamine, Ur NOT REPORTED Normal NEG [facility] Comment on above: Performed By: #### KOMAL Hays YAZMIN ####[address] [place] [address] Propoxyphene,Urine NOT REPORTED Normal NEG [facility] Comment on above: Performed By: #### KOMAL Hays YAZMIN ####[address] [place] [address] Urine, tricyclic antidepressants NOT REPORTED Normal NEG [facility] Comment on above: Performed By: #### KOMAL Hays YAZMIN ####[address] [place] [address] Urinalysis, Routineon 2016 Acetaminophen mass conc Negative Normal NEG [facility] Comment on above: Performed By: #### KOMAL Hays YAZMIN ####[address] [place] [address] Bilirubin (direct) Negative Normal NEG [facility] Comment on above: Performed By: #### KOMAL Hays YAZMIN ####[address] [place] [address] Hemoglobin mass conc (Bld) TRACE Abnormal NEG [facility] Comment on above: Performed By: #### KOMAL Hays, YAZMIN ####[address] [place] [address] Nitrite,Ur Negative Normal NEG [facility] Comment on above: Performed By: #### KOMAL Hays YAZMIN ####[facility] [facility] [place] [address] Turbidity CLEAR Normal CLEAR [facility] Comment on above: Performed By: #### KOMAL Hays YAZMIN ####[facility] [facility] [place] [address] Urine, color YELLOW Normal YEL [facility] Comment on above: Performed By: #### KOMAL Hays YAZMIN ####[facility] [facility] [place] [address] Urine, glucose presence Negative Normal NEG [facility] Comment on above: Performed By: #### KOMAL Hays YAZMIN ####[facility] [facility] [place] [address] Urine, leukocyte esterase presence Negative Normal NEG [facility] Comment on above: Result Comment: Perf ormed at [facility] [address] [facility] [place] [address] Performed By: #### KOMAL Hays DAU ####[facility] [facility] [place] [address] Urine, pH 6.0 [pH] Normal 5.0-8.0 [facility] Comment on above: Performed By: #### KOMAL Hays YAZMIN ####[facility] [place] [address].[place] [address] Urine, protein presence Negative Normal NEG [facility] Comment on above: Performed By: #### KOMAL Hays YAZMIN ####[facility] [facility] [place] [address] Urine, specific gravity 1.007 Normal 1.000-1.030 [facility] Comment on above: Performed By: #### U A, UMICAO, YAZMIN ####[facility] [place] [address] Urobilinogen,Ur Normal Normal NORM [facility] Comment on above: Performed By: #### U A, UMICAO, YAZMIN ####[address] [address] Comment NOT REPORTED Normal [facility] Comment on above: Performed By: #### U A, UMICAO, YAZMIN ####[address] [address] Urinalysis,Microon 7 ----- Normal [facility] Comment on above: Performed By: #### U A, UMICAO, YAZMIN ####[address] [address] Urine WBC's 0 TO 2 Normal [facility] Comment on above: Performed By: #### U A, UMICAO, YAZMIN ####[address] [address] Urine, bacteria in sediment FEW Abnormal NONE [facility] Comment on above: Result Comment: Perf ormed at [facility] [address] [place] [address] Performed By: #### U A, UMICAO, YAZMIN ####[address] [address] Urine, epithelial cells in sediment 0 TO 2 Normal [facility] Comment on above: Performed By: #### U A, UMICAO, YAZMIN ####[address] [address] [address] Urine, erythrocytes 2 TO 5 Normal [facility] Comment on above: Performed By: #### U A, UMICAO, YAZMIN ####[facility] [facility].[place] [address] Epithelial, Renal NOT REPORTED Normal 0 [facility] Comment on above: Performed By: #### U A, UMICAO, YAZMIN ####[facility] [facility].[place] [address] Mucus Strands NOT REPORTED Normal NONE [facility] Comment on above: Performed By: #### U A, UMICAO, YAZMIN ####[facility] [place] [address] Other Observations NOT REPORTED Normal NREQ [facility] Comment on above: Performed By: #### U A, UMICAO, YAZMIN ####[address] [place] [address] Trichomonas NOT REPORTED Normal NONE [facility] Comment on above: Performed By: #### U A, UMICAO, YAZMIN ####[facility] [place] [address] Urine, amorphous sediment presence in sediment NOT REPORTED Normal [facility] Comment on above: Performed By: #### U A, UMICAO, YAZMIN ####[address] [address] Urine, casts in sediment NOT REPORTED Normal [facility] Comment on above: Performed By: #### U A, UMICAO, YAZMIN ####[facility] [place] [address] [place] [address] Urine, crystals in sediment NOT REPORTED Normal [facility] Comment on above: Performed By: #### U A, UMICAO, YAZMIN ####[facility] [place] [address].[place] [address] Urine, yeast presence in sediment NOT REPORTED Normal NONE [facility] Comment on above: Performed By: #### U KOMAL Pride DAU ####[address] [address] CBC with Diffon 01-30-2017 Abs. Basophil 0.10 k/uL Normal 0.0-0.2 [facility] Comment on above: Result Comment: Perf ormed at [facility] [address] [place] [address] Performed By: #### C DP, CP ####[address] [address] Abs.Neutrophil (Seg) 5.40 k/uL Normal 1.3-9.1 [facility] Comment on above: Performed By: #### C DP, CP ####[address] [address] Basophils/100 WBC Auto (Bld) 1 % Normal [facility] Comment on above: Performed By: #### C DP, CP ####[address] [address] Eosinophils 0.40 10*3/uL Normal 0.0-0.4 [facility] Comment on above: Performed By: #### C DP, CP ####[address] [address] Eosinophils/100 leukocytes 5 % Normal [facility] Comment on above: Performed By: #### C DP, CP ####[address] [address] Erythrocyte distribution width Auto Ratio (RBC) 13.0 % Normal 11.5-14.9 [facility] Comment on above: Performed By: #### C DP, CP ####[address] [address] Erythrocytes (RBC) 4.26 10*6/uL Low 4.5-5.9 [facility] Comment on above: Performed By: #### C DP, CP ####[facility] [place] [address] Hematocrit (HCT) 42.3 % Normal 41-53 [facility] Comment on above: Performed By: #### C DP, CP ####[facility] [place] [address] Hemoglobin mass conc (Bld) 14.5 g/dL Normal 13.5-17.5 [facility] Comment on above: Performed By: #### C DP, CP ####[facility] [place] [address] Lymphocytes 2.20 10*3/uL Normal 1.0-4.8 [facility] Comment on above: Performed By: #### C DP, CP ####[facility] [place] [address] Lymphocytes/100 leukocytes 25 % Normal [facility] Comment on above: Performed By: #### C DP, CP ####[facility] [place] [address] MCH 34.0 pg Normal 26-34 [facility] Comment on above: Performed By: #### C DP, CP ####[facility] [place] [address] MCHC mass conc (RBC) 34.2 g/dL Normal 31-37 [facility] Comment on above: Performed By: #### C DP, CP ####[facility] [place] [address] MCV 99.3 fL Normal 80-100 [facility] Comment on above: Performed By: #### C DP, CP ####[facility] [facility] [place] [address] Monocytes 0.60 10*3/uL Normal 0.1-1.3 [facility] Comment on above: Performed By: #### C DP, CP ####[facility] [facility] [place] [address] Monocytes/100 leukocytes 7 % Normal [facility] Comment on above: Performed By: #### C DP, CP ####[facility] [place] [address] Neutrophil (Seg) 62 % Normal [facility] Comment on above: Performed By: #### C DP, CP ####[facility] [place] [address] Platelet mean volume (PMV) 9.1 fL Normal 6.0-12.0 [facility] Comment on above: Performed By: #### C DP, CP ####[facility] [place] [address] Platelets 225 10*3/uL Normal 150-450 [facility] Comment on above: Performed By: #### C DP, CP ####[facility] [place] [address] WBC (Leukocytes) 8.7 10*3/uL Normal 3.5-11.0 [facility] Comment on above: Performed By: #### C DP, CP ####[facility] [place] [address] Auto Diff Performed NOT REPORTED Normal [facility] Comment on above: Performed By: #### C DP, CP ####[facility] [place] [address] Erythrocyte morphology NOT REPORTED Normal [facility] Comment on above: Performed By: #### C DP, CP ####[facility] [facility] [place] [address] Platelets NOT REPORTED Normal [facility] Comment on above: Performed By: #### C DP, CP ####[facility] [place] [address] WBC Morphology NOT REPORTED Normal [facility] Comment on above: Performed By: #### C DP, CP ####[facility] [place] [address] Comp Metabolic Profon 2016 (cont.) Normal [facility] Comment on above: Result Comment: Aver age GFR for 40-49 years old: 99 mL/min/1.73sq mChronic Kidney Disease: <60 mL/min/1.73sq mKidney failure: <15 mL/min/1.73sq meGFR calculated using average adult body mass. Additional eGFR calculator available at:[email or web address] at [facility] [address] [place] [address] Performed By: #### C DP, CP ####[facility] [place] [address] Alanine aminotransferase (ALT) 20 U/L Normal 5-41 [facility] Comment on above: Performed By: #### C DP, CP ####[facility] [place] [address] Albumin 3.3 g/dL Low 3.5-5.2 [facility] Comment on above: Performed By: #### C DP, CP ####[facility] [place] [address] Alkaline Phos 120 U/L Normal 40-129 [facility] Comment on above: Performed By: #### C DP, CP ####[facility] [facility] [place] [address] Anion gap 12 mmol/L Normal 9-17 [facility] Comment on above: Performed By: #### C DP, CP ####[facility] [facility] [place] [address] Aspartate aminotransferase (AST) 26 U/L Normal <40 [facility] Comment on above: Performed By: #### C DP, CP ####[facility] [place] [address] Bilirubin Ql (U) 0.29 mg/dL Low 0.3-1.2 [facility] Comment on above: Performed By: #### C DP, CP ####[address] [address] Calcium 8.4 mg/dL Low 8.6-10.4 [facility] Comment on above: Performed By: #### C DP, CP ####[address] [address] Chloride 104 mmol/L Normal 98-107 [facility] Comment on above: Performed By: #### C DP, CP ####[address] [address] CO2 27 mmol/L Normal 20-31 [facility] Comment on above: Performed By: #### C DP, CP ####[facility] [place] [address] Creatinine 0.70 mg/dL Normal 0.70-1.20 [facility] Comment on above: Performed By: #### C DP, CP ####[address] [address] eGFR (non-black) mL/min/{1.73_m2} Normal >60 [facility] Comment on above: Performed By: #### C DP, CP ####[address] [place] [address] Glucose mass conc 117 mg/dL High 70-99 [facility] Comment on above: Performed By: #### C DP, CP ####[address] [place] [address] Potassium molar conc 3.1 mmol/L Low 3.7-5.3 [facility] Comment on above: Performed By: #### C DP, CP ####[address] [address] Protein 6.2 g/dL Low 6.4-8.3 [facility] Comment on above: Performed By: #### C DP, CP ####[address] [address] Sodium 143 mmol/L Normal 135-144 [facility] Comment on above: Performed By: #### C DP, CP ####[address] [address] Urea nitrogen 5 mg/dL Low 6-20 [facility] Comment on above: Performed By: #### C DP, CP ####[address] [address] Albumin/Globulin Ratio NOT REPORTED Normal 1.0-2.5 [facility] Comment on above: Performed By: #### C DP, CP ####[address] [address] BUN/CRE Ratio NOT REPORTED Normal 9-20 [facility] Comment on above: Performed By: #### C DP, CP ####[address] [place] [address] Staging: NOT REPORTED Normal [facility] Comment on above: Performed By: #### C DP, CP ####[facility] [place] [address].[place] [address] Vital Signs Date Time Vital Sign Value Performing Clinician Facility 01-19-2025 14:55-0400 Body height 170.2 cm Horace Rollins MD Work Phone: [facility] 01-19-2025 14:55-0400 Body mass index (BMI) [Ratio] 42.29 kg/m2 Horace Rollins MD Work Phone: [facility] 01-19-2025 14:55-0400 Body temperature 97.11 [degF] Horace Rollins MD Work Phone: [facility] 01-19-2025 14:55-0400 Body weight 122.47 kg Horace Rollins MD Work Phone: [facility] 01-19-2025 14:55-0400 Diastolic blood pressure 74 mm[Hg] Horace Rollins MD Work Phone: [facility] 01-19-2025 14:55-0400 Heart rate 94 /min Horace Rollins MD Work Phone: [facility] 01-19-2025 14:55-0400 Respiratory rate 18 /min Horace Rollins MD Work Phone: [facility] 01-19-2025 14:55-0400 SaO2% (BldA) [Mass fraction] 98 % Horace Rollins MD Work Phone: [facility] 01-19-2025 14:55-0400 Systolic blood pressure 142 mm[Hg] Horace Rollins MD Work Phone: [facility] 01-19-2025 11:24-0400 Body height 170.2 cm Chuckie Chiu MD Work Phone: [facility] 01-19-2025 11:24-0400 Body mass index (BMI) [Ratio] 43.07 kg/m2 Chuckie Chiu MD Work Phone: [facility] 01-19-2025 11:24-0400 Body weight 124.74 kg Chuckie Chiu MD Work Phone: [facility] 01-19-2025 11:24-0400 Diastolic blood pressure 75 mm[Hg] Chuckie Chiu MD Work Phone: [facility] 01-19-2025 11:24-0400 Heart rate 96 /min Chuckie Chiu MD Work Phone: [facility] 01-19-2025 11:24-0400 Systolic blood pressure 113 mm[Hg] Chuckie Chiu MD Work Phone: [facility] 12-01-2024 09:02-0400 Body height 170.2 cm Horace Rollins MD Work Phone: [facility] 12-01-2024 09:02-0400 Body mass index (BMI) [Ratio] 43.38 kg/m2 Horace Rollins MD Work Phone: [facility] 12-01-2024 09:02-0400 Body temperature 97.11 [degF] Horace Rollins MD Work Phone: [facility] 12-01-2024 09:02-0400 Body weight 125.65 kg Horace Rollins MD Work Phone: [facility] 12-01-2024 09:02-0400 Diastolic blood pressure 70 mm[Hg] Horace Rollins MD Work Phone: [facility] 12-01-2024 09:02-0400 Heart rate 97 /min Horace Rollins MD Work Phone: [facility] 12-01-2024 09:02-0400 Respiratory rate 18 /min Horace Rollins MD Work Phone: [facility] 12-01-2024 09:02-0400 SaO2% (BldA) [Mass fraction] 99 % Horace Rollins MD Work Phone: [facility] 12-01-2024 09:02-0400 Systolic blood pressure 142 mm[Hg] Horace Rollins MD Work Phone: [facility] 08-19-2024 09:30-0500 Body height 170.2 cm Ashanti López [employer] Work Phone: [facility] 08-19-2024 09:30-0500 Body mass index (BMI) [Ratio] 38.53 kg/m2 Ashanti López [employer] Work Phone: [facility] 08-19-2024 09:30-0500 Body temperature 96.3 [degF] Ashanti López [employer] Work Phone: [facility] 08-19-2024 09:30-0500 Body weight 111.58 kg Ashanti López [employer] Work Phone: [facility] 08-19-2024 09:30-0500 Diastolic blood pressure 68 mm[Hg] Ashanti López [employer] Work Phone: [facility] 08-19-2024 09:30-0500 Heart rate 101 /min Ashanti López [employer] Work Phone: [facility] 08-19-2024 09:30-0500 Respiratory rate 16 /min Ashanti López [employer] Work Phone: [facility] 08-19-2024 09:30-0500 SaO2% (BldA) [Mass fraction] 96 % Ashanti López [employer] Work Phone: [facility] 08-19-2024 09:30-0500 Systolic blood pressure 132 mm[Hg] Ashanti López [employer] Work Phone: [facility] 07-28-2024 12:58-0500 Body height 170.[address] MD Work Phone: [facility] 07-28-2024 12:58-0500 Body mass index (BMI) [Ratio] 40.72 kg/m2 Zaria Lane MD Work Phone: [facility] 07-28-2024 12:58-0500 Body weight 117.[address] MD Work Phone: [facility] 07-28-2024 12:58-0500 Diastolic blood pressure 80 mm[Hg] Zaria Lane MD Work Phone: [facility] 07-28-2024 12:58-0500 Heart rate 82 /min Zaria Lane MD Work Phone: [facility] 07-28-2024 12:58-0500 Respiratory rate 18 /min Zaria Lane MD Work Phone: [facility] 07-28-2024 12:58-0500 Systolic blood pressure 116 mm[Hg] Zaria Lane MD Work Phone: [facility] 07-24-2024 08:31-0500 Body height 170.2 cm Anthony Santana DPM Work Phone: [facility] 07-24-2024 08:31-0500 Body mass index (BMI) [Ratio] 40.88 kg/m2 Anthony Santana DPM Work Phone: [facility] 07-24-2024 08:31-0500 Body weight 118.39 kg Anthony Santana DPM Work Phone: [facility] 07-24-2024 08:31-0500 Respiratory rate 16 /min Anthony Santana DPM Work Phone: [facility] 07-02-2024 08:53-0500 Body height 170.2 cm Ashanti López [employer] Work Phone: [facility] 07-02-2024 08:53-0500 Body mass index (BMI) [Ratio] 40.88 kg/m2 Ashanti López [employer] Work Phone: [facility] 07-02-2024 08:53-0500 Body temperature 97.2 [degF] Ashanti López [employer] Work Phone: [facility] 07-02-2024 08:53-0500 Body weight 118.39 kg Ashanti López [employer] Work Phone: [facility] 07-02-2024 08:53-0500 Diastolic blood pressure 68 mm[Hg] Ashanti López [employer] Work Phone: [facility] 07-02-2024 08:53-0500 Heart rate 97 /min Ashanti López [employer] Work Phone: [facility] 07-02-2024 08:53-0500 Respiratory rate 16 /min Ashanti López [employer] Work Phone: [facility] 07-02-2024 08:53-0500 SaO2% (BldA) [Mass fraction] 99 % Ashanti López [employer] Work Phone: [facility] 07-02-2024 08:53-0500 Systolic blood pressure 128 mm[Hg] Ashanti López [employer] Work Phone: [facility] 04-29-2024 11:19-0400 Diastolic blood pressure 71 mm[Hg] AMITA REBECCA [facility] 04-29-2024 11:19-0400 Heart rate 92 /min AMITA REBECCA [facility] 04-29-2024 11:19-0400 Respiratory rate 16 /min AMITA REBECCA [facility] 04-29-2024 11:19-0400 Systolic blood pressure 116 mm[Hg] AMITA REBECCA [facility] 04-17-2024 13:21-0400 Body height 170.2 cm Anthony Santana DPM Work Phone: [facility] 04-17-2024 13:21-0400 Body mass index (BMI) [Ratio] 41.82 kg/m2 Anthony Santana DPM Work Phone: [facility] 04-17-2024 13:21-0400 Body weight 121.11 kg Anthony Santana DPM Work Phone: [facility] 04-17-2024 13:21-0400 Diastolic blood pressure 78 mm[Hg] Anthony Santana DPM Work Phone: [facility] 04-17-2024 13:21-0400 Heart rate 75 /min Anthony Santana DPM Work Phone: [facility] 04-17-2024 13:21-0400 Respiratory rate 17 /min Anthony Santana DPM Work Phone: [facility] 04-17-2024 13:21-0400 Systolic blood pressure 116 mm[Hg] Anthony Santana DPM Work Phone: [facility] 04-07-2024 09:01-0400 Body height 170.2 cm Ashanti López [employer] Work Phone: [facility] 04-07-2024 09:01-0400 Body mass index (BMI) [Ratio] 41.82 kg/m2 Ashanti López [employer] Work Phone: [facility] 04-07-2024 09:01-0400 Body temperature 98.1 [degF] Ashanti López [employer] Work Phone: [facility] 04-07-2024 09:01-0400 Body weight 121.11 kg Ashanti López [employer] Work Phone: [facility] 04-07-2024 09:01-0400 Diastolic blood pressure 74 mm[Hg] Ashanti López [employer] Work Phone: [facility] 04-07-2024 09:01-0400 Heart rate 94 /min Ashanti Perezpatrick [employer] Work Phone: [facility] 04-07-2024 09:01-0400 SaO2% (BldA) [Mass fraction] 95 % Ashanti Perezpatrick [employer] Work Phone: [facility] 04-07-2024 09:01-0400 Systolic blood pressure 116 mm[Hg] Ashanti Coffeyzpatrick [employer]PER Work Phone: [facility] 04-03-2024 10:32-0400 Blood Pressure Location AMITA REBECCA [facility] 04-03-2024 10:32-0400 Body temperature 98.6 [degF] AMITA REBECCA [facility] 04-03-2024 10:32-0400 Diastolic blood pressure 86 mm[Hg] AMITA REBECCA [facility] 04-03-2024 10:32-0400 Heart rate 80 /min AMITA REBECCA [facility] 04-03-2024 10:32-0400 Respiratory rate 16 /min AMITA REBECCA [facility] 04-03-2024 10:32-0400 Systolic blood pressure 134 mm[Hg] AMITA REBECCA [facility] 03-06-2024 09:04-0400 Body height 170.2 cm Ashanti Perezpatrick [employer]PER Work Phone: [facility] 03-06-2024 09:04-0400 Body mass index (BMI) [Ratio] 41.19 kg/m2 Ashanti Coffeyzpatrick [employer] Work Phone: [facility] 03-06-2024 09:04-0400 Body temperature 99.19 [degF] Ashanti López [employer] Work Phone: [facility] 03-06-2024 09:04-0400 Body weight 119.3 kg Ashanti López [employer] Work Phone: [facility] 03-06-2024 09:04-0400 Diastolic blood pressure 84 mm[Hg] Ashanti López [employer]PER Work Phone: [facility] 03-06-2024 09:04-0400 Heart rate 111 /min Ashanti López [employer] Work Phone: [facility] Comment on above: 97% O2 03-06-2024 09:04-0400 Systolic blood pressure 108 mm[Hg] Ashanti López [employer]PER Work Phone: [facility] 11-15-2022 14:53-0400 Blood Pressure Location AMITA FERNANDEZ [facility] 11-15-2022 14:53-0400 Diastolic blood pressure 74 mm[Hg] AMITA REBECCA [facility] 11-15-2022 14:53-0400 Heart rate 68 /min AMITA REBECCA [facility] 11-15-2022 14:53-0400 Respiratory rate 16 /min AMITA REBECCA [facility] 11-15-2022 14:53-0400 Systolic blood pressure 138 mm[Hg] AMITA REBECCA [facility] 01-17-2022 10:08-0400 Blood Pressure Location Tee Almendarez Jr. [facility] 01-17-2022 10:08-0400 Diastolic blood pressure 79 mm[Hg] Tee Almendarez Jr. [facility] 01-17-2022 10:08-0400 Heart rate 81 /min Tee Almendarez Jr. [facility] 01-17-2022 10:08-0400 Respiratory rate 16 /min Tee Almendarez Jr. [facility] 01-17-2022 10:08-0400 Systolic blood pressure 138 mm[Hg] Tee Almendarez Jr. [facility] 11-15-2021 09:32-0400 Blood Pressure Location Tee Almendarez Jr. [facility] 11-15-2021 09:32-0400 Diastolic blood pressure 76 mm[Hg] Tee Almendarez Jr. [facility] 11-15-2021 09:32-0400 Heart rate 97 /min Tee Almendarez Jr. [facility] 11-15-2021 09:32-0400 Respiratory rate 18 /min Tee Almendarez Jr. [facility] 11-15-2021 09:32-0400 Systolic blood pressure 112 mm[Hg] Tee Almendarez Jr. [facility] Jennifer Encounters Encounter Date Encounter Type Care Provider Facility Start: 03-05-2025 End: 03-17-2025 Telephone encounter Horace Rollins MD Work Phone: [facility] Start: 02-03-2025 End: 02-03-2025 Clinisync Result Encounter Horace Rollins MD Work Phone: [facility] Unsolicited Start: 02-03-2025 End: 02-03-2025 Clinisync Result Encounter Horace Rollins MD Work Phone: [facility] Unsolicited Start: 01-19-2025 End: 01-19-2025 Office outpatient visit 15 minutes Horace Rollins MD Work Phone: [facility] Comment on above: Neck pain (Primary D x) Start: 01-19-2025 End: 01-19-2025 Bamboo flowsheet Chuckie Chiu MD Work Phone: [facility] Start: 01-19-2025 End: 01-19-2025 Bamboo flowsheet Chuckie Chiu MD Work Phone: [facility] Start: 01-19-2025 End: 01-19-2025 Refill Chuckie Chiu MD Work Phone: [facility] Comment on above: 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 Start: 01-19-2025 End: 01-19-2025 Office outpatient visit 25 minutes Chuckie Chiu MD Work Phone: [facility] Comment on above: 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 (Primary Dx); Other specified hearing loss of left ear, unspecified hearing status on contralateral side; Perforation of left tympanic membrane Start: 12-22-2024 ambulatory Kota Carvalho acility:[facility] Start: 12-01-2024 End: 12-01-2024 Bamboo flowsheet Horace Rollins MD Work Phone: [facility] Start: 12-01-2024 End: 12-01-2024 Bamboo flowsheet Horace Rollins MD Work Phone: [facility] Start: 12-01-2024 End: 12-01-2024 ambulatory HORACE ROLLINS Not Available Start: 12-01-2024 End: 12-01-2024 Office outpatient visit 25 minutes Horace Rollins MD Work Phone: [facility] Comment on above: Chronic obstructive pulmonary disease, unspecified COPD type (CMS/HCC) (Primary Dx); Undifferentiated schizophrenia (CMS/HCC); Class 3 severe obesity due to excess calories with serious comorbidity and body mass index (BMI) of 40.0 to 44.9 in adult; Type 2 diabetes mellitus with hyperglycemia, without long-term current use of insulin (CMS/HCC) Start: 11-20-2024 End: 11-24-[address] MD Work Phone: [facility] Comment on above: Medication Problem Start: 08-26-2024 End: 08-26-[address] MD Work Phone: [facility] Comment on above: Medication Problem Start: 08-19-2024 End: 08-19-2024 Bamboo flowsheet Ashanti Bustostrick [employer]PER Work Phone: [facility] Start: 08-19-2024 End: 08-19-2024 Bamboo flowsheet Ashanti López [employer]PER Work Phone: [facility] Start: 08-19-2024 End: 08-19-2024 Office outpatient visit 10 minutes Ashanti López [employer] Work Phone: [facility] Comment on above: Type II diabetes mika litus with complication (CMS/HCC) (Primary Dx); Chronic obstructive pulmonary disease, unspecified COPD type (CMS/HCC) Start: 08-19-2024 End: 08-19-2024 ambulatory ASHANTI LÓPEZ Not Available Start: 07-28-2024 End: 07-28-[address] MD Work Phone: [facility] Start: 07-28-2024 End: 07-28-[address] MD Work Phone: [facility] Start: 07-28-2024 End: 07-28-2024 Office outpatient new [address] MD Work Phone: [facility] Comment on above: Type II diabetes mika litus with complication (CMS/HCC) (Primary Dx); Vitamin D deficiency; Insulin long-term use (CMS/[facility]); Encounter for dietary consultation; Class 3 severe obesity due to excess calories with serious comorbidity and body mass index (BMI) of 40.0 to 44.9 in adult (CMS/HCC) Start: 07-28-2024 End: 07-28-[address] [...] underlying condition with diabetic 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, unspecified whether manager terminal insulin use (CMS/[facility]) (Primary Dx); Pain due to onychomycosis of toenails of both feet; Venous insufficiency Start: 07-24-2024 End: 07-24-2024 ambulatory ANTHONY SANTANA Not Available Start: 07-03-2024 End: 07-03-2024 Orders Only Ashanti López [employer]PER Work Phone: [facility] Comment on above: Type II diabetes mika litus with complication (CMS/HCC) Start: 07-02-2024 End: 07-02-2024 Bamboo flowsheet Ashanti Bustostrick [employer]PER Work Phone: [facility] Start: 07-02-2024 End: 07-02-2024 Bamboo flowsheet Ashanti Perezpatrick [employer]OPPER Work Phone: [facility] Start: 07-02-2024 End: 07-02-2024 Office outpatient visit 15 minutes Ashanti Bargerk [employer]PER Work Phone: [facility] Comment on above: Type 2 diabetes marlena itus without complication, with long-term current use of insulin (CMS/HCC); Type II diabetes mellitus with complication (CMS/HCC) Start: 07-02-2024 End: 07-02-2024 ambulatory ASHANTI BUSTOSTRICK Not Available Start: 06-05-2024 End: 06-05-2024 Orders Only Ashanti Bustostrick [employer] Work Phone: [facility] Comment on above: Type II diabetes mika litus with complication (CMS/HCC) Start: 05-29-2024 End: 05-29-2024 Orders Only Ashanti Bustostrick [employer]PER Work Phone: [facility] Comment on above: Type II diabetes mika litus with complication (CMS/HCC) (Primary Dx) Start: 05-28-2024 End: 05-29-2024 Telephone encounter [facility] Comment on above: NEW PATIENT REFERRAL Start: 05-19-2024 End: 05-19-2024 Telephone encounter Ashanti López [employer]PER Work Phone: [facility] Start: 04-29-2024 End: 04-29-2024 ambulatory AMITA FERNANDEZ Facility:[facility] Start: 04-29-2024 End: 04-29-2024 Patient encounter procedure AMITA FERNANDEZ [facility] Start: 04-23-2024 End: 04-23-2024 Orders Only Ashanti López [employer]PER Work Phone: [facility] Comment on [...] Start: 04-16-2024 End: 04-16-2024 Orders Only Ashanti Bargerk [employer]PER Work Phone: [facility] Comment on above: Type II diabetes mika litus with complication (CMS/HCC) (Primary Dx) Start: 04-08-2024 End: 04-08-2024 Orders Only Ashanti Bargerk [employer]PER Work Phone: [facility] Comment on above: Acute swimmer's ear of both sides (Primary Dx); Anal pruritus Type II diabetes mika litus with complication (CMS/HCC) (Primary Dx) Start: 04-07-2024 End: 04-07-2024 Bamboo flowsheet Ashanti Bustostrick [employer]OPPER Work Phone: [facility] Start: 04-07-2024 End: 04-07-2024 Bamboo flowsheet Ashanti Bargerk [employer] DROPPER Work Phone: [facility] Start: 04-07-2024 End: 04-07-2024 Office outpatient visit 15 minutes Ashanti Bargerk [employer]PER Work Phone: [facility] Comment on above: Type 2 diabetes marlena itus without complication, with long-term current use of insulin (CMS/[facility]) (Primary Dx); Type II diabetes mellitus with complication (CMS/HCC); Anal pruritus; Acute otitis externa of both ears, unspecified type Start: 04-07-2024 End: 04-07-2024 ambulatory ASHANTI BARGERK Not Available Start: 04-03-2024 End: 04-03-2024 Clinisync Result Encounter Ashanti López CAR DROPPER Work Phone: [facility] Unsolicited Start: 04-03-2024 End: 04-03-2024 Clinisync Result Encounter Ashanti Bargerk [employer]PER Work Phone: [facility] Unsolicited Start: 04-03-2024 End: 04-03-2024 ambulatory AMITA FERNANDEZ Facility:[facility] Start: 04-03-2024 End: 04-03-2024 Patient encounter procedure AMITA FERNANDEZ [facility] Start: 03-06-2024 End: 03-06-2024 Bamboo flowsheet Ashanti Bargerk [employer]PER Work Phone: [facility] Start: 03-06-2024 End: 03-06-2024 Bamboo flowsheet Ashanti Bustostrick CAR DROPPER Work Phone: [facility] Start: 03-06-2024 End: 03-06-2024 Office outpatient visit 25 minutes Ashanti López CAR [employer]PER Work Phone: [facility] Comment on above: Hyperlipidemia, unsp ecified hyperlipidemia type (CMS/HCC) (Primary Dx); Chronic obstructive pulmonary disease, unspecified COPD type (CMS/[facility]); Type 2 diabetes mellitus without complication, with long-term current use of insulin ([facility]) Start: 03-06-2024 End: 03-06-2024 ambulatory ASHANTI LÓPEZ Not Available Start: 03-05-2024 End: 03-05-2024 Refill Ashanti López CAR DROPPER Work Phone: [facility] Start: 11-20-2023 ambulatory AMITA FERNANDEZ Facili ty:[facility] Start: 08-06-2023 End: 08-06-2023 ambulatory STONE FAWWAD Not Available Start: 06-26-2023 End: 06-26-2023 ambulatory STONE FAWWAD Not Available Start: 11-24-2022 End: 11-25-2022 ambulatory STONE H FAWWAD Facility:[facility] Start: 11-15-2022 End: 11-15-2022 Patient encounter procedure AMITA FERNANDEZ [facility] Start: 04-18-2022 End: 04-19-2022 ambulatory STONE H FAWWAD Facility:[facility] Start: 03-24-2022 End: 03-24-2022 ambulatory STONE H FAWWAD Facility:[facility] Start: 03-11-2022 End: 03-11-2022 ambulatory STONE H FAWWAD Facility:[facility] Start: 02-16-2022 ambulatory STONE H FAWWAD Facilit y:[facility] Start: 01-17-2022 End: 01-17-2022 Patient encounter procedure Tee Almendarez Jr. [facility] Start: 01-09-2022 End: 01-10-2022 ambulatory STONE H FAWWAD Facility:[facility] Start: 12-08-2021 End: 12-09-[address] TEE Lopez Facility:[facility] Start: 11-15-2021 End: 11-15-2021 Patient encounter procedure Tee Almendarez Jr. [facility] Start: 04-28-2021 End: 05-04-2021 ambulatory UNKNOWN PROVIDER Facility:[facility] Start: 01-29-2017 End: 02-05-2017 Evaluation and management of inpatient KUL B PIERRE [facility] Procedures Date Procedure Procedure Detail Performing Clinician Start: 02-03-2025 XR CERVICAL SPINE 2-3V Horace Rollins MD Work Phone: Start: 07-28-2024 Gluc bld gluc mntr d ev cleared fda spec home use Zaria Lane MD Work Phone: Start: 07-02-2024 Hemoglobin glycosyla josiah a1c Ashanti López CAR [employer]OPPER Work Phone: Start: 04-03-2024 MLR HEMOGLOBIN A1C Brit jaz López CAR DROPPER Work Phone: Start: 02-05-2017 DISCHARGE PATIENT KUL G UPTA [...] malign ant neoplasm of colon [facility] Start: 06-03-2025 End: 06-03-2025 Patient encounter procedure 06/03/2025 9:00 AM EST Office Visit [facility] [address] [place] [address] Horace Rollins MD [address] [place] [address] [facility] Start: 03-24-2025 End: 03-24-2025 Patient encounter procedure [facility] Start: 03-19-2025 End: 03-19-2025 Patient encounter procedure 03/19/2025 10:20 AM EDT Office Visit [facility] [place] [facility] [address] [place] [address] MD [address] [place] [address] [facility] [place] [facility] Start: 03-16-2025 Influenza vaccination [facility] Start: 02-17-2025 End: 02-17-2025 Patient encounter procedure 02/17/2025 1:50 PM EDT Office Visit [facility] [address] [place] [address] MD [address] [place] [address] [facility] Start: 02-10-2025 End: 02-10-2025 Patient encounter procedure 02/10/2025 2:20 PM EDT Office Visit [facility] [address] [facility] [address] [place] [address] Chuckie Chiu MD [address] [place] [address] [place] [address] [facility] Start: 01-25-2025 Hemoglobin A1c measurement Diabetes: Hemoglobin A1C [facility] Start: 01-19-2025 End: 01-19-2025 Patient encounter procedure 01/19/2025 2:45 PM EDT Office Visit [facility] [address] [place] [address] Horace Rollins MD [address] [place] [phone] [facility] Start: 01-19-2025 End: 01-19-2026 XR Cervical spine 2 or 3 Views XR cervical spine 2 or 3 views Imaging Routine Neck pain Expected: 01/19/2025, Expires: 01/19/2026 [facility] Work Phone: Comment on above: Expected: 01/19/2025 , Expires: 01/19/2026 Start: 12-17-2024 End: 12-17-2024 Patient encounter procedure 12/17/2024 10:00 AM EDT Office Visit [facility] [address] [place] [phone] MD [address] [place] [address] [facility] Start: 12-14-2024 Glaucoma screening Diabetes: R etinopathy Screening [facility] Start: 12-01-2024 End: 12-01-2024 Patient encounter procedure 12/01/2024 8:45 AM EDT Office Visit [facility] [address] [place] [address] Horace Rollins MD [address] [place] [phone] [facility] Start: 10-27-2024 End: 10-27-2024 Patient encounter procedure 10/27/2024 1:10 PM EDT Office Visit [facility] [address] [place] [phone] MD [address] [place] [address] [facility] Start: 10-26-2024 Hemoglobin A1c measurement Diabetes: Hemoglobin A1C [facility] Start: 10-14-2024 End: 10-14-2024 Patient encounter procedure [facility] Start: 10-02-2024 End: 10-02-2024 Patient encounter procedure 10/02/2024 8:30 AM EDT Office Visit [facility] [address] [facility] [address] [place] [address] Anthony Santana DPM [address] [facility] [address] [place] [address] [facility] Start: 09-30-2024 Hemoglobin A1c measurement Diabetes: Hemoglobin A1C [facility] Start: 09-24-2024 End: 09-24-2024 Patient encounter procedure 09/24/2024 11:00 AM EDT Consult [facility] [address] [place] [address] MD [address] [place] [address] [facility] Start: 08-19-2024 End: 08-19-2024 Patient encounter procedure 08/19/2024 9:30 AM EST Office Visit [facility] [address] [place] [phone] Ashanti López NP [address] [place] [phone] Arrived [facility] Comment on above: Arrived Start: 08-06-2024 End: 08-06-2024 Patient encounter procedure 08/06/2024 9:00 AM EST Office Visit [facility] [address] [place] [phone] Ashanti López NP [address] [place] [address] [facility] Start: 08-01-2024 Medicare Annual Well ness (AWV) Medicare Annual Wellness (AWV) [facility] Start: 07-28-2024 End: 07-28-2025 25-hydroxyvitamin D3 [Mass/volume] in Serum or Plasma Vitamin D 25 hydroxy Total Lab Routine Type II diabetes mellitus with complication (CMS/HCC) Expected: 07/28/2024 (Approximate), Expires: 07/28/2025 [facility] Comment on above: Expected: 07/28/2024 (Approximate), Expires: 07/28/2025 Start: 07-28-2024 End: 07-28-2025 C-peptide C-peptide Lab Routine Type II diabetes mellitus with complication (CMS/HCC) Expected: 07/28/2024 (Approximate), Expires: 07/28/2025 [facility] Work Phone: Comment on above: Expected: 07/28/2024 (Approximate), Expires: 07/28/2025 Start: 07-28-2024 End: 07-28-2025 Lipid 1996 panel - Serum or Plasma Lipid panel Lab Routine Type II diabetes mellitus with complication (CMS/HCC) Expected: 07/28/2024 (Approximate), Expires: 07/28/2025 [facility] Comment on above: Expected: 07/28/2024 (Approximate), Expires: 07/28/2025 Start: 07-28-2024 End: 07-28-2025 Microalbumin/Creatinine panel in random Urine Microalbumin / creatinine urine ratio Lab Routine Type II diabetes mellitus with complication (CMS/HCC) Expected: 07/28/2024 (Approximate), Expires: 07/28/2025 [facility] Comment on above: Expected: 07/28/2024 (Approximate), Expires: 07/28/2025 Start: 07-28-2024 End: 07-28-2025 Renal function panel Renal function panel Lab Routine Type II diabetes mellitus with complication (CMS/HCC) Expected: 07/28/2024 (Approximate), Expires: 07/28/2025 [facility] Comment on above: Expected: 07/28/2024 (Approximate), Expires: 07/28/2025 Start: 07-28-2024 End: 07-28-2024 Patient encounter procedure [facility] Comment on above: Type II diabetes mika litus with complication ([facility]) Start: 07-24-2024 End: 07-24-2024 Patient encounter procedure [facility] Comment on above: Diabetes mellitus du e to underlying condition with diabetic 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, unspecified whether manager terminal insulin use ([facility]) (Primary Dx); Pain due to onychomycosis of toenails of both feet; Venous insufficiency Start: 07-02-2024 End: 07-02-2024 Patient encounter procedure [facility] Comment on above: Arrived Start: 06-29-2024 Urine screening for protein Diabetes: Urine Protein Screening [facility] Start: 06-18-2024 End: 06-18-2024 Patient encounter procedure 06/18/2024 10:30 AM EST Consult [facility] [address] [place] [address] MD [address] [place] [address] [facility] Start: 05-20-2024 End: 05-20-2024 Patient encounter procedure 05/20/2024 9:40 AM EST Office Visit [facility] [address] [facility] [address] [place] [address] Chuckie Chiu MD [address] [facility] [address] [place] [address] [facility] Start: 04-17-2024 End: 04-17-2024 Patient encounter procedure [facility] Comment on above: Diabetes mellitus du e to underlying condition with diabetic 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, unspecified whether manager terminal insulin use ([facility]) (Primary Dx); Onychomycosis; Toe pain, bilateral; Venous insufficiency Start: 04-07-2024 End: 04-07-2025 Hemoglobin A1c/Hemoglobin.total in Blood Hemoglobin A1c Lab Routine Type II diabetes mellitus with complication ([facility]) Expected: 04/07/2024 (Approximate), Expires: 04/07/2025 [facility] Work Phone: Comment on above: Expected: 04/07/2024 (Approximate), Expires: 04/07/2025 Start: 04-07-2024 End: 04-07-2024 Patient encounter procedure [facility] Comment on above: Type 2 diabetes marlena itus without complication, with long-term current use of insulin (CMS/HCC) (Primary Dx) Start: 03-16-2024 Influenza vaccination [facility] Start: 03-06-2024 End: 03-06-2025 Hemoglobin A1c/Hemoglobin.total in Blood Hemoglobin A1c Lab Routine Type 2 diabetes mellitus without complication, with long-term current use of insulin (CMS/HCC) Expected: 03/06/2024 (Approximate), Expires: 03/06/2025 [facility] Work Phone: Comment on above: Expected: 03/06/2024 (Approximate), Expires: 03/06/2025 Start: 03-06-2024 End: 03-06-2024 Patient encounter procedure [facility] Comment on above: Hyperlipidemia, unsp ecified hyperlipidemia type (CMS/HCC) (Primary Dx); Chronic obstructive pulmonary disease, unspecified COPD type ([facility]); Type 2 diabetes mellitus without complication, with long-term current use of insulin ([facility]) Start: 12-25-2023 Hemoglobin A1c measurement Diabetes: Hemoglobin A1C [facility] Start: 2022 Administration of varicella zoster vaccine Zoster (Shingles) Vaccine (1 of 2) [facility] Start: 1991 DTaP,Tdap and Td Vaccines (1 - Tdap) DTaP,Tdap and Td Vaccines (1 - Tdap) [facility] Start: 1990 Adult BMI Screening Adult BMI Screen ing [facility] Start: 1990 Diabetic foot examination Diabetic Foot Exam [facility] Start: 1984 Depression Screening Depression Scre ening [facility] Start: 1984 Tobacco Screening Tobacco Screening [facility] Start: 1972 Glaucoma screening Diabetic Op hthalmology Exam [facility] Start: 1972 Screening for malign ant neoplasm of colon [facility] Start: 1972 Screening for malign ant neoplasm of lung Lung Cancer Screening Shared Decision Making [facility] Immunizations Immunization Date Immunization Notes Care Provider Scot ugalde 01-01-2021 SARS-CoV-2 (COVID-19 ) mRNA BNT-162b2 vax AMITA FERNANDEZ [facility] Comment on above: Result Comment: 2022: [id number] 12-11-2020 SARS-CoV-2 (COVID-19 ) mRNA BNT-162b2 vax AMITA REBECCA [facility] Comment on above: Result Comment: 2022: [id number] Payers Date Payer Category Payer Self-pay 2021 Unknown [id number] 2019 Medicare (Managed Care) [id number]. [id number] 2016 Medicare [id number] 2006 Medicare [id number] 1972 Unknown [id number] 2.16. 840.1.030221.3.579.2.732 1972 Unknown [id number] 2.16.84 0.1.647538.3.579.2.593 1972 Unknown [id number] 2.16.84 0.1.827545.3.579.2.593 1972 Unknown [id number] 2.16.84 0.1.711882.3.579.2.593 1972 Unknown [id number] 2.16.84 0.1.196588.3.579.2.593 1972 Unknown [id number] 2.16.84 0.1.611183.3.579.2.593 1972 Unknown [id number] 2.16.84 0.1.835173.3.579.2.593 1972 Unknown [id number] 2.16.84 0.1.539858.3.579.2.593 1972 Unknown [id number] 2.16.84 0.1.631893.3.579.2.593 1972 Unknown [id number] 2.16.84 0.1.031652.3.579.2.1259 1972 Unknown [id number] 2.16.840 .1.846484.3.579.2.1259 1972 Unknown [id number] 2.16.8 40.1.739304.3.579.2.727 1972 Unknown [id number] 2.16.8 40.1.154730.3.579.2.727 1972 Unknown [id number] 2.16.8 40.1.395274.3.579.2.727 1972 Unknown [id number] 2.16.8 40.1.142182.3.579.2.1259 1972 Unknown [id number] 2.16.8 40.1.549180.3.579.2.1259 1972 Unknown [id number] 2.16.84 0.1.918262.3.579.2.1259 1972 Unknown [id number] 2.16.84 0.1.974583.3.579.2.1259 1972 Unknown [id number] 2.16.84 0.1.941884.3.579.2.1259 1972 Unknown [id number] 2.16.84 0.1.285879.3.579.2.1259 1972 Unknown [id number] 2.16.84 0.1.644702.3.579.2.1259 1972 Unknown [id number] 2.16.84 0.1.422781.3.579.2.1259 1972 Unknown [id number] 2.16.84 0.1.430169.3.579.2.1259 1972 Unknown [id number] 2.16.84 0.1.539326.3.579.2.1259 1959 Medicare [id number] Unknown [id number] 2.16.8 40.1.979421.3.579.2.531 Social History Date Type Detail Facility Tobacco Current, Cigaret yao, 40 per day. [facility] Start: 04-07-2024 End: 01-19-2025 Sex Assigned At Male [facility] Start: 01-17-2022 End: 04-29-2024 Tobacco smoking status Heavy tobacco smoker (finding) [facility] Start: 07-16-1988 Tobacco smoking status WAIS Smokes tobacco daily [facility] Start: 07-16-1988 End: 06-15-2024 History of tobacco use Cigarette Smoker [facility] Start: 12-31-2023 End: 04-07-2024 Cigarettes smoked current (pack per day) - Reported 2 [facility] Start: 12-31-2023 End: 07-02-2024 Tobacco use and exposure Smokeless tobacco non-user [facility] Start: 04-07-2024 End: 12-01-2024 Alcoholic beverage intake Current drinker of alcohol (finding) [facility] Start: 06-15-2023 Tobacco Comment 31 or more cigarettes/day [facility] Start: 06-15-2023 Alcohol Comment caffeine: more than 4 cups/day [facility] Start: 1972 Sex assigned at Not on file [facility] Tobacco smoking status Never [facility] Start: 07-02-2024 Tobacco smoking status WAIS Ex-smoker [facility] Start: 07-16-1988 End: 06-15-2024 History of tobacco use Current smoker [facility] Tobacco smoking status WAIS Tobacco smoking consumption unknown [facility] Start: 02-18-2015 Sex Male (finding) [facility] Start: 01-19-2025 Alcoholic beverage intake Ex-drinker (finding) [facility] NEGATED: Highlighted rowStart: RADHA History of tobacco use Passive smoker [facility] Medical Equipment Procedure Code Equipment Code Equipment Origin al Text Equipment Identifier Dates [id number] Start: 04-07-2024 End: 04-07-2025 Inject 1 each un chandan the skin Daily Use as instructed [id number] Start: 04-16-2024 USE TWICE DAY WI TH LANCING DEVICE. [id number] Start: 12-10-2024 USE TWICE A DAY TO TEST BLOOD SUGARS. [id number] Start: 12-10-2024 End: 12-10-2025 Functional Status Date Assessment Result Facility 04-29-2024 Functional Status N/A [facility] 04-03-2024 Functional Status N/A [facility] 11-15-2022 Functional Status N/A [facility] 01-17-2022 Functional Status N/A [facility] Clinical Notes 11-15-2021 to 03-05-2025 Telephone Encounter - Niharika Ward - 03/05/2025 2:57 PM EDTTelephone Encounter - Niharika Ward - 03/05/2025 2:57 PM George Rollins MD - 01/19/2025 3:26 PM EDTPatient Instructions Note Date & Type Note Facility 03-05-2025 Telephone encounter Note Johnny needs a note explaining his skin condition so tat the city does not shut off his water. [facility] 03-05-2025 Miscellaneous Notes Johnny needs a note explaining his skin condition so tat the city does not shut off his water. documented in this encounter [facility] 01-19-2025 History of Present illness Narrative Associated Problem(s): Neck pain Pain likely related to DDD and check x-ray. Start prednisone for inflammation and flexeril for spasms. Use heat or massage PRN. If no improvement will need PT and possible MRI Images from the original note were not included. Subjective Patient ID: Johnny Verma is a 54 y.o. male who presents for Follow-up (Neck pain/ ear pain). C/o neck pain for about 2 weeks. No change in activity and no falls. Severe pain in neck up to back head and into top of shoulders. No radiation down arm or into hands. No numbness or tingling in hands. Severe tightness and spasms in shoulders. Pain to turn head and decreased ROM. 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 Using OTC and not helping. Review of Systems Constitutional: Negative for fatigue. [...] Assessment/Plan Problem List Items Addressed This Visit Neck pain - Primary Pain likely related to DDD and check x-ray. Start prednisone for inflammation and flexeril for spasms. Use heat or massage PRN. If no improvement will need PT and possible MRI Relevant Medications predniSONE (Deltasone) 50 MG tablet cyclobenzaprine (Flexeril) 10 MG tablet Other Relevant Orders XR cervical spine 2 or 3 views documented in this encounter [facility] 01-19-2025 History of Present illness Narrative Subjective Patient ID: Johnny Verma is a 54 y.o. male who presents for Ear Problem (Ear drainage) Pt states he has continued to have otorrhea and itching since last seen almost 3 years ago. Pt also c/o left hearing loss. Family History Problem Relation Name Age of Onset Diabetes Father Heart disease Father Active Ambulatory Problems Diagnosis Date Noted Class 3 severe obesity due to excess calories with serious comorbidity and body mass index (BMI) of 40.0 to 44.9 in adult ([facility]) 06/26/2023 Chronic obstructive pulmonary disease ([facility]) 06/26/2023 Hyperlipidemia 06/26/2023 Schizophrenia ([facility]) 06/26/2023 Encounter for screening for malignant neoplasm of colon 06/26/2023 Conductive hearing loss, unilateral, left ear with restricted hearing on the contralateral side 09/10/2023 Mixed conductive and sensorineural hearing loss of left ear with restricted hearing of right ear 09/10/2023 Tobacco abuse 10/08/2023 Type 2 diabetes mellitus with hyperglycemia, without long-term current use of insulin ([facility]) 04/07/2024 DDD (degenerative disc disease), lumbar 10/21/2024 Resolved Ambulatory Problems Diagnosis Date Noted Type 2 diabetes mellitus without complication, with long-term current use of insulin ([facility]) 06/26/2023 Recurrent acute otitis media 09/10/2023 Thoracolumbar back pain 11/29/2023 Hidradenitis suppurativa of left axilla 11/29/2023 Anal pruritus 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 04/08/2024 Acute otitis externa of both ears 04/08/2024 Past Medical History: Diagnosis Date Acute otitis externa of right ear, unspecified type Allergic rhinitis, seasonal Anxiety Chronic suppurative otitis media of both ears Chronic suppurative otitis media of left ear COPD (chronic obstructive pulmonary disease) ([facility]) COVID-19 Depression DM (diabetes mellitus), type 2 ([facility]) Dysmetabolic syndrome X History of being hospitalized Hypogonadism, male Insomnia Mental health disorder Obese On combination antipsychotic drug therapy Osteoarthritis of knee Pancreatitis ([facility]) Paresthesia of hand Skin excoriation Sleep apnea, obstructive Smoking Tingling in extremities Type 2 diabetes mellitus, with long-term current use of insulin ([facility]) No past surgical history on file. Allergies Allergen Reactions Metformin GI intolerance Amitriptyline Palpitations Current Outpatient Medications on File Prior to Visit Medication Sig Dispense Refill albuterol (2.5 MG/3ML) 0.083% nebulizer solution Take by nebulization every 4 (four) hours if needed for wheezing or shortness of breath Alcohol Swabs (Alcohol Pads) 70 % pads 1 Pad every 12 (twelve) hours Blood Glucose Monitoring Suppl ([employer] Blood Glucose Meter) w/Device kit USE TWICE A DAY TO TEST BLOOD SUGARS 1 kit 1 [employer] Lancets Ultra Thin misc USE TWICE DAY WITH LANCING DEVICE. 100 each 2 glipiZIDE XL (Glucotrol XL) 10 MG 24 hr tablet TAKE 1 TABLET BY MOUTH IN THE MORNING AND 1 TABLET BEFORE BEDTIME. DO NOT CRUSH, CHEW, OR SPLIT. 180 tablet 0 glucose blood ([employer] Glucose Meter Test Strips) test strip USE TWICE A DAY TO TEST BLOOD SUGARS. 100 each 12 insulin glargine (Lantus SoloStar) 100 UNIT/ML pen Inject 45 Units under the skin at bedtime 40.5 mL 0 Lancets Ultra Thin 30G misc 1 Lancet every 12 (twelve) hours pen needle 31G x 5 mm misc Inject 1 each under the skin Daily Use as instructed 100 each 2 pioglitazone (Actos) 45 MG tablet Take 1 tablet (45 mg) by mouth Daily 90 tablet 3 Xanomeline-Trospium Chloride (Cobenfy) 50-20 MG capsule Take by mouth Semaglutide,0.25 or 0.5MG/DOS, (Ozempic, 0.25 or 0.5 MG/DOSE,) 2 MG/3ML solution pen-injector Inject 0.5 mg under the skin every 7 (seven) days (Patient not taking: No sig reported) 6 mL 1 No current facility-administered medications on file prior to visit. Objective Last Recorded Vitals Vitals: 01/19/25 1124 BP: 113/75 Pulse: 96 ENT Physical Exam Ear Ear comments: Rene moist inflamed EACs with pinpoint left TM perf. Assessment/Plan Diagnoses and all orders for this visit: Other infective chronic otitis externa of both ears - ciprofloxacin-dexAMETHasone (CiproDEX) otic suspension; Administer 4 drops into each ear in the morning and 4 drops in the evening and 4 drops before bedtime. Do all this for 10 days. - levoFLOXacin (Levaquin) 250 MG tablet; Take 2 tablets (500 mg) by mouth Daily for 10 days - fluconazole (Diflucan) 100 MG tablet; 2 pills day one and then one pill daily for 13 days Other specified hearing loss of left ear, unspecified hearing status on contralateral side Perforation of left tympanic membrane Tx inflammation as above. Once infection cleared I will order an audio documented in this encounter [facility] 12-01-2024 History of Present illness Narrative Associated Problem(s): Type 2 diabetes mellitus with hyperglycemia, without long-term current use of insulin ([facility]) Not checking BS and need to follow up with endo. Associated Problem(s): Schizophrenia Reports stopped medication and patient with unusual behavior. Able to redirect and not aggressive but concerning. Denies thoughts of hurting self or others. Needs to follow up with psychiatry. Associated Problem(s): Chronic obstructive pulmonary disease ([facility]) Sob stable and use albuterol PRN. Associated [...] Weight loss indicated. Chronic obstructive pulmonary disease (CMS/HCC) - Primary Sob stable and use albuterol PRN. Schizophrenia Reports stopped medication and patient with unusual behavior. Able to redirect and not aggressive but concerning. Denies thoughts of hurting self or others. Needs to follow up with psychiatry. Type 2 diabetes mellitus with hyperglycemia, without long-term current use of insulin (CMS/HCC) Not checking BS and need to follow up with endo. documented in this encounter [facility] 11-20-2024 Telephone encounter Note Pt states ozempic too expensive, would like something less expensive if possible? [facility] 11-20-2024 Miscellaneous Notes Pt states ozempic too expensive, would like something less expensive if possible? documented in this encounter [facility] 08-26-2024 Telephone encounter Note Pt says ozempic is $500. Is there a different medication that he can try? Please advise. He's going to try for patient assistance. [facility] 08-26-2024 Miscellaneous Notes Pt says ozempic is $500. Is there a different medication that he can try? Please advise. He's going to try for patient assistance. documented in this encounter [facility] 08-19-2024 History of Present illness Narrative Associated [...] Addressed This Visit Chronic obstructive pulmonary disease ([facility]) Reports he has recernly stopped smoking and drinking alcohol. States he feels his COPD symptoms are well controlled now compared to several months ago when he was smoking. Reports minimal rescue inhaler use. Continue current regimen. Type II diabetes mellitus with complication ([facility]) - Primary Most recent A1C 11.5% 07/2024. Was referred to Endocrinology- is now following with Dr. Lane. Actos was increased, glipizide increased. Lantus increased and started on Semaglutide. States he has been taking medication exactly as directed by Dr. Lane. Reports no adverse reactions to medications, hypoglycemic episodes. Continue current regimen as directed buy Dr. Lane. documented in this encounter [facility] 08-19-2024 Instructions Ashanti López NP - 08/19/2024 9:30 AM EST Keep ALL appointments as scheduled with ALL of your specialists. Have your lab work done before your next visit with Dr. Lane in October. Call if you need anything! documented in this encounter [facility] 07-28-2024 History of Present illness Narrative Johnny [...] 1 Pad, Every 12 hours Continuous Glucose Resource Director (FreeStyle Tenzin 2 [place]) device 1 Device, Does not apply, Once [...] left ear COPD (chronic obstructive pulmonary disease) ([facility]) COVID-19 spring 2019 Depression ([facility]) DM (diabetes mellitus), type 2 ([facility]) Dysmetabolic syndrome X History of being hospitalized psychiatric,pneumonia,COPD Hypogonadism, male Insomnia Mental health disorder Mixed conductive and sensorineural hearing loss of left ear with restricted hearing of right ear Obese On combination antipsychotic drug therapy Osteoarthritis of knee Pancreatitis Paresthesia of hand Recurrent acute otitis media Schizophrenia ([facility]) Skin excoriation Sleep apnea, obstructive Smoking Tingling in extremities Type 2 diabetes mellitus, with long-term current use of insulin ([facility] No past surgical history on file. REVIEW [...] visit: Type II diabetes mellitus with complication ([facility] - Ambulatory referral to Endocrinology - POCT [...] the skin at bedtime - Continuous Glucose Resource Director (FreeStyle Tenzin 2 [place]) device; 1 Device 1 (one) time for [...] C-peptide. Vitamin D deficiency Insulin long-term use ([facility] Encounter for dietary consultation Diet and exercise reviewed with the patient Class 3 severe obesity due to excess calories with serious comorbidity and body mass index (BMI) of 40.0 to 44.9 in adult ([facility] Advised to learn about carb count Follow up in about 3 months (around 10/26/2024). documented in this encounter [facility] 07-24-2024 History of Present illness Narrative Patient: [...] left ear COPD (chronic obstructive pulmonary disease) (CMS/HCC) COVID-19 spring 2019 Depression (CMS/HCC) DM (diabetes mellitus), type 2 (CMS/HCC) Dysmetabolic syndrome X History of being hospitalized psychiatric,pneumonia,COPD Hypogonadism, male Insomnia Mental health disorder Mixed conductive and sensorineural hearing loss of left ear with restricted hearing of right ear Obese On combination antipsychotic drug therapy Osteoarthritis of knee Pancreatitis Paresthesia of hand Recurrent acute otitis media Schizophrenia (CMS/HCC) Skin excoriation Sleep apnea, obstructive Smoking Tingling in extremities Type 2 diabetes mellitus, with long-term current use of insulin (CMS/HCC) Medications: Current Outpatient Medications: albuterol (2.5 MG/3ML) [...] and negative PT pedal pulses NEURO: 5.07 Teague Maddie monofilament test intact to digits and forefoot bilaterally 125Hz tuning fork diminished to 1st MPJ bilaterally ORTHO: Positive pain on palpation to nails 1 through 10 ASSESSMENT 1. Diabetes mellitus due to underlying condition with diabetic 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, unspecified whether detention insulin use ([facility]) 2. Pain due to onychomycosis of toenails [...] Anthony Santana DPM documented in this encounter [facility] 07-02-2024 History of Present illness Narrative Associated Problem(s): Hyperlipidemia ([facility]) Not on any medication therapy currently. Triglycerides are slightly elevated. Continue to monitor closely with psychiatric medications Associated Problem(s): Type II diabetes mellitus with complication ([facility]) Currently taking Glipizide 5mg BID Actos 15 [...] complication, with long-term current use of insulin ([facility]) Relevant Medications dapagliflozin (Farxiga) 5 MG Other Relevant Orders POCT glycosylated hemoglobin (Hb A1C) docked device (Completed) documented in this encounter [facility] 07-02-2024 Instructions Ashanti López NP - 07/02/2024 [...] and simple sugars. documented in this encounter [facility] 05-28-2024 Miscellaneous Notes First Attempt Made from [employer] New patient referral received. Dx:Type II diabetes mellitus with complication (CMS-HCC) [E11.8] Polyneuropathy [G62.9]/ Referred by:VERNELL Hoskins Referred to: Providers patient can see in clinic (Make sure if AUGILA is listed the patient has not seen a Neurologist before): Please contact patient to schedule from referral, Thanks! PLEASE REVIEW PLAN OVER THE PHONE AND ADVISE PATIENT TO BRING UPDATED INSURANCE INFORMATION TO THEIR NEW PATIENT APPOINTMENT 2nd attempt: Adult Remedial Education Instructor contacted patient once more attempting to inform patient that we have received their new patient referral and are calling to schedule them in with our first available appointment with our clinic. Patient appeared to answer phone but there was no response on the other end. QUE. documented in this encounter [facility] 05-28-2024 Telephone encounter Note First Attempt Made from [employer] New patient referral received. Dx:Type II [...] INSURANCE INFORMATION TO THEIR NEW PATIENT APPOINTMENT [facility] 05-28-2024 Telephone encounter Note 2nd attempt: Adult Remedial Education Instructor contacted patient once more attempting to inform patient that we have received their new patient referral and are calling to schedule them in with our first available appointment with our clinic. Patient appeared to answer phone but there was no response on the other end. FYI. [facility] 05-19-2024 Telephone encounter Note Spoke with patient [...] to see a new primary care provider. [facility] 05-19-2024 Miscellaneous Notes Spoke with patient again [...] primary care provider. documented in this encounter [facility] 05-02-2024 Note Patient Education Urology Erectile Dysfunction [...] these instructions at home: Medicines ? Take fjcl-jgh-brelqxc and prescription medicines only as told by [...] or tobacco. These (more content not included)... [facility] 04-23-2024 History of Present illness Narrative [...] from pharmacy today. documented in this encounter [facility] 04-17-2024 History of Present illness Narrative Patient: [...] left ear COPD (chronic obstructive pulmonary disease) ([facility]) COVID-19 spring 2019 Depression ([facility]) DM (diabetes mellitus), type 2 ([facility]) Dysmetabolic syndrome X History of being hospitalized psychiatric,pneumonia,COPD Hypogonadism, male Insomnia Mental health disorder Mixed conductive and sensorineural hearing loss of left ear with restricted hearing of right ear Obese On combination antipsychotic drug therapy Osteoarthritis of knee Pancreatitis Paresthesia of hand Recurrent acute otitis media Schizophrenia ([facility]) Skin excoriation Sleep apnea, obstructive Smoking Tingling in extremities Type 2 diabetes mellitus, with long-term current use of insulin ([facility]) Medications: Current Outpatient Medications: albuterol (2.5 MG/3ML) [...] and negative PT pedal pulses NEURO: 5.07 Teague Maddie monofilament test intact to digits and forefoot bilaterally 125Hz tuning fork diminished to 1st MPJ bilaterally ORTHO: Positive pain on palpation to nails 1 through 10 ASSESSMENT 1. Diabetes mellitus due to underlying condition with diabetic 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, unspecified whether detention insulin use ([facility]) 2. Onychomycosis 3. Toe pain, bilateral 4. [...] Anthony Santana DPM documented in this encounter [facility] 04-08-2024 History of Present illness Narrative Associated Problem(s): Type II diabetes mellitus with complication ([facility]) Was on Novolin 70/30 60u BID but [...] complication, with long-term current use of insulin ([facility]) - Primary Anal pruritus Rx sent for hydrocortisone suppository Type II diabetes mellitus with complication ([facility]) Was on Novolin 70/30 60u BID but [...] in X7 days documented in this encounter [facility] 04-07-2024 Instructions Ashanti López NP - 04/07/2024 [...] and simple sugars. documented in this encounter [facility] 04-03-2024 Hospital Discharge instructions Patient Education 04/03/2024 [...] Follow these instructions at home: Medicines Take cxwd-bcp-bknhhix and prescription medicines only as told by [...] important. Where to find more information National [place] of [employer] and Digestive and Kidney Diseases: [...] depends on the type of prostatitis. Take vapa-rwq-yhbvfqs and prescription medicines only as told by [...] provider. Document Revised: 05/17/2023 Document Reviewed: 05/17/2023 coin4ce Patient Education 2023 [employer]. Follow Up Care 04/01/2024 10:02:22 With:REBECCA OLIVEIRA, AMITA Huang, URL Address: [address] [place] [phone] Business (1) When: only if needed [facility] 04-03-2024 Note Patient Education Infectious Disease [...] these instructions at home: Medicines ? Take ihqv-rzq-cskdhoy and prescription medicines only as told by [...] Where to find more information ? National [place] of Diabetes and Digestive a (more content not included)... [facility] 03-06-2024 History of Present illness Narrative Associated Problem(s): Hyperlipidemia (CMS/HCC) Not on any medication therapy. Triglycerides are [...] ALBUMIN GLOBULIN RATIO 0.8 0.8 Resulting Agency [facility] COPD: Albuterol Feels Symptoms are not [...] complication, with long-term current use of insulin ([facility]) Currently not taking insulin Most recent A1C [...] with psychiatric medications documented in this encounter [facility] 03-06-2024 Instructions Ashanti López NP - 03/06/2024 [...] and simple sugars. documented in this encounter [facility] 11-15-2022 Hospital Discharge instructions Patient Education 11/15/2022 [...] Follow these instructions at home: Medicines Take kwuf-swl-aompqop and prescription medicines only as told by [...] provider. Document Revised: 09/28/2021 Document Reviewed: 09/28/2021 coin4ce Patient Education 2022 [employer]. Follow Up Care 10/31/2022 09:47:32 With:REBECCA OLIVEIRA, AMITA Huang, URL Address: [address] [place] [address] When: Unknown [facility] Jennifer 01-17-2022 Hospital Discharge instructions Patient Education 01/17/2022 [...] Follow these instructions at home: Medicines Take phyq-cmd-kztyiix and prescription medicines only as told by [...] 06/29/2001 Document Revised: 06/14/2018 Document Reviewed: 07/18/2017 coin4ce Patient Education 2020 [employer]. Follow Up Care 11/15/2021 10:33:52 With:Erickson Brooks MD, Tee Brush, URO Address: [facility] [address] , [place] [phone] When:02/28/2022 [facility] [place] 11-15-2021 Hospital Discharge instructions Patient Education 11/15/2021 [...] Follow these instructions at home: Medicines Take petv-aqu-hxxmqee and prescription medicines only as told by [...] 06/29/2001 Document Revised: 06/14/2018 Document Reviewed: 07/18/2017 coin4ce Patient Education 2020 [employer]. Follow Up Care 08/23/2021 10:12:56 With:Erickson Brooks MD, Tee Brush, URO Address: [facility] [address], [place] [address]- When:01/15/2022 [facility] Evaluation + Plan note Future Appointments Appointment Date:01/17/2022 09:45:00 AM Scheduled Provider:Tee Almendarez Jr., MD Location:[facility] Appointment Type:URO Office Visit Diagnostic Tests PendingTestosterone Level Total 11/15/21 [facility] Evaluation + Plan note Future Appointments Appointment Date:03/07/2022 08:45:00 AM Scheduled Provider:Tee Almendarez Jr., MD Location:[facility] Appointment Type:URO Office Visit [facility] Evaluation + Plan note Future Appointments Appointment Date:11/20/2023 09:00:00 AM Scheduled Provider:AMITA FERNANDEZ PA-C Location:[facility] Appointment Type:URO Office Visit [facility] Evaluation note Diagnosis Type II diabetes mellitus with complication ([facility] Primary Type II or unspecified type diabetes mellitus with unspecified complication, not stated as uncontrolled Diabetes mellitus due to underlying condition with diabetic 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, unspecified whether manager terminal insulin use (CMS/[facility])- Primary Onychomycosis Dermatophytosis of nail Toe pain, bilateral Venous insufficiency Unspecified venous (peripheral) insufficiency documented [facility] Diagnosis Diabetes mellitus due to underlying condition with diabetic 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, unspecified whether detention insulin use ([facility])- Primary Venous insufficiency Unspecified venous (peripheral) insufficiency Pain due to onychomycosis of toenails of both feet documented in this encounter [facility]* Diagnosis Type II diabetes mellitus with complication ([facility])- Primary Type II or unspecified type diabetes mellitus with unspecified complication, not stated as uncontrolled documented in this encounter [facility]* Diagnosis Obesity, morbid ([facility])- Primary Morbid obesity Type 2 diabetes mellitus without complication, with long-term current use of insulin ([facility]) Schizophrenia, unspecified type ([facility]) Chronic obstructive pulmonary disease, unspecified [place] Hyperlipidemia, unspecified hyperlipidemia type [place] [place] Encounter for screening for malignant neoplasm of colon Chronic obstructive pulmonary disease, unspecified COPD type ([facility] [place] Primary Type 2 diabetes mellitus without complication, with long-term current use of insulin ([facility] [place]) Tobacco abuse Tobacco use disorder Undifferentiated schizophrenia ([facility] [place]) Type 2 diabetes mellitus without complication, with long-term current use of insulin ([facility] [place] Primary Thoracolumbar back pain Hidradenitis suppurativa of left axilla Type 2 diabetes mellitus without complication, with long-term current use of insulin [place] [place] Primary Obesity, morbid ([facility] [place]) Morbid obesity Undifferentiated schizophrenia ([facility] [place]) Hyperlipidemia, unspecified hyperlipidemia type ([facility] [place]) Thoracolumbar back pain Hyperlipidemia, unspecified hyperlipidemia type [place] [place] Primary Chronic obstructive pulmonary disease, unspecified COPD type ([facility] [place]) Type 2 diabetes mellitus without complication, with long-term current use of insulin [place] [place] Type 2 diabetes mellitus without complication, with long-term current use of insulin ([facility] [place] Primary Type II diabetes mellitus with complication ([facility] [place]) Type II or unspecified type diabetes mellitus with unspecified complication, not stated as uncontrolled Anal pruritus Pruritus ani Acute otitis externa of both ears, unspecified type Type II diabetes mellitus with complication ([facility] [place])- Primary Type II or unspecified type diabetes mellitus with unspecified complication, not stated as uncontrolled documented in this encounter [facility] HealthcareEvaluation note* Diagnosis Obesity, morbid ([facility])- Primary Morbid obesity Type 2 diabetes mellitus without complication, with long-term current use of insulin ([facility] [place]) Schizophrenia, unspecified type ([facility] [place]) Chronic obstructive pulmonary disease, unspecified COPD type ([facility] [place]) Hyperlipidemia, unspecified hyperlipidemia type ([facility] [place]) Encounter for screening for malignant neoplasm of colon Chronic obstructive pulmonary disease, unspecified COPD type ([facility])- Primary Type 2 diabetes mellitus without complication, with long-term current use of insulin ([facility] [place]) Tobacco abuse Tobacco use disorder Undifferentiated schizophrenia ([facility] [place]) Type 2 diabetes mellitus without complication, with long-term current use of insulin ([facility] [place])- Primary Thoracolumbar back pain Hidradenitis suppurativa of left axilla Type 2 diabetes mellitus without complication, with long-term current use of insulin ([facility] [place])- Primary Obesity, morbid ([facility] [place]) Morbid obesity Undifferentiated schizophrenia ([facility] [place]) Hyperlipidemia, unspecified hyperlipidemia type ([facility] [place]) Thoracolumbar back pain Hyperlipidemia, unspecified hyperlipidemia type ([facility] [place] Primary Chronic obstructive pulmonary disease, unspecified COPD type ([facility] [place]) Type 2 diabetes mellitus without complication, with long-term current use of insulin ([facility] [place]) Type 2 diabetes mellitus without complication, with long-term current use of insulin ([facility] [place])- Primary Type II diabetes mellitus with complication ([facility] [place]) Type II or unspecified type diabetes mellitus with unspecified complication, not stated as uncontrolled Anal pruritus Pruritus ani Acute otitis externa of both ears, unspecified type Type II diabetes mellitus with complication ([facility] [place]) Type II or unspecified type diabetes mellitus with unspecified complication, not stated as uncontrolled documented in this encounter [facility] HealthcareEvaluation note* Diagnosis Obesity, morbid ([facility] [place])- Primary Morbid obesity Type 2 diabetes mellitus without complication, with long-term current use of insulin ([facility] [place]) Schizophrenia, unspecified type ([facility] [place]) Chronic obstructive pulmonary disease, unspecified COPD type ([facility] [place]) Hyperlipidemia, unspecified hyperlipidemia type ([facility] [place]) Encounter for screening for malignant neoplasm of colon Chronic obstructive pulmonary disease, unspecified COPD type ([facility] [place] Primary Type 2 diabetes mellitus without complication, with long-term current use of insulin ([facility] [place]) Tobacco abuse Tobacco use disorder Undifferentiated schizophrenia ([facility] [place]) Type 2 diabetes mellitus without complication, with long-term current use of insulin ([facility] [place] Primary Thoracolumbar back pain Hidradenitis suppurativa of left axilla Type 2 diabetes mellitus without complication, with long-term current use of insulin ([facility] [place])- Primary Obesity, morbid ([facility] [place]) Morbid obesity Undifferentiated schizophrenia ([facility] [place]) Hyperlipidemia, unspecified hyperlipidemia type ([facility] [place]) Thoracolumbar back pain Hyperlipidemia, unspecified hyperlipidemia type ([facility] [place] Primary Chronic obstructive pulmonary disease, unspecified COPD type ([facility] [place]) Type 2 diabetes mellitus without complication, with long-term current use of insulin ([facility] [place]) Type 2 diabetes mellitus without complication, with long-term current use of insulin ([facility] [place] Primary Type II diabetes mellitus with complication [place] [place] Type II or unspecified type diabetes mellitus with unspecified complication, not stated as uncontrolled Anal pruritus Pruritus ani Acute otitis externa of both ears, unspecified type Type II diabetes mellitus with complication ([facility] [place] Primary Type II or unspecified type diabetes mellitus with unspecified complication, not stated as uncontrolled documented in this encounter [facility] HealthcareEvaluation note* Diagnosis Hyperlipidemia, unspecified hyperlipidemia type ([facility] [place] Primary Chronic obstructive pulmonary disease, unspecified COPD type ([facility] [place]) Type 2 diabetes mellitus without complication, with long-term current use of insulin ([facility] [place]) documented in this encounter [facility] HealthcareEvaluation note* Diagnosis Obesity, morbid ([facility] [place] Primary Morbid obesity Type 2 diabetes mellitus without complication, with long-term current use of insulin ([facility] [place]) Schizophrenia, unspecified type ([facility] [place]) Chronic obstructive pulmonary disease, unspecified COPD type ([facility] [place]) Hyperlipidemia, unspecified hyperlipidemia type ([facility] [place]) Encounter for screening for malignant neoplasm of colon Chronic obstructive pulmonary disease, unspecified COPD type ([facility] [place] Primary Type 2 diabetes mellitus without complication, with long-term current use of insulin ([facility] [place]) Tobacco abuse Tobacco use disorder Undifferentiated schizophrenia ([facility] [place]) Type 2 diabetes mellitus without complication, with long-term current use of insulin ([facility] [place] Primary Thoracolumbar back pain Hidradenitis suppurativa of left axilla Type 2 diabetes mellitus without complication, with long-term current use of insulin ([facility] [place] Primary Obesity, morbid ([facility] [place]) Morbid obesity Undifferentiated schizophrenia ([facility] [place]) Hyperlipidemia, unspecified hyperlipidemia type ([facility] [place]) Thoracolumbar back pain Hyperlipidemia, unspecified hyperlipidemia type ([facility] [place] Primary Chronic obstructive pulmonary disease, unspecified COPD type ([facility] [place]) Type 2 diabetes mellitus without complication, with long-term current use of insulin ([facility] [place]) Type 2 diabetes mellitus without complication, with long-term current use of insulin ([facility] [place] Primary Type II diabetes mellitus with complication ([facility] [place]) Type II or unspecified type diabetes mellitus with unspecified complication, not stated as uncontrolled Anal pruritus Pruritus ani Acute otitis externa of both ears, unspecified type Type 2 diabetes mellitus without complication, with long-term current use of insulin ([facility] [place]) Type II diabetes mellitus with complication ([facility] [place]) Type II or unspecified type diabetes mellitus with unspecified complication, not stated as uncontrolled documented in this encounter [facility] HealthcareEvaluation note* Diagnosis Type 2 diabetes mellitus without complication, with long-term current use of insulin [place] Primary Type II diabetes mellitus with complication ([facility] [place]) Type II or unspecified type diabetes mellitus with unspecified complication, not stated as uncontrolled Anal pruritus Pruritus ani Acute otitis externa of both ears, unspecified type documented in this encounter [facility] HealthcareEvaluation note* Diagnosis Acute swimmer's ear of both sides- Primary Anal pruritus Pruritus ani documented in this encounter [facility] HealthcareEvaluation note* Diagnosis Obesity, morbid ([facility] [place] Primary Morbid obesity Type 2 diabetes mellitus without complication, with long-term current use of insulin ([facility] [place]) Schizophrenia, unspecified type ([facility] [place]) Chronic obstructive pulmonary disease, unspecified COPD type ([facility] [place]) Hyperlipidemia, unspecified hyperlipidemia type ([facility] [place]) Encounter for screening for malignant neoplasm of colon Chronic obstructive pulmonary disease, unspecified COPD type ([facility] [place] Primary Type 2 diabetes mellitus without complication, with long-term current use of insulin ([facility] [place]) Tobacco abuse Tobacco use disorder Undifferentiated schizophrenia ([facility] [place]) Type 2 diabetes mellitus without complication, with long-term current use of insulin ([facility] [place] Primary Thoracolumbar back pain Hidradenitis suppurativa of left axilla Type 2 diabetes mellitus without complication, with long-term current use of insulin ([facility] [place] Primary Obesity, morbid ([facility] [place]) Morbid obesity Undifferentiated schizophrenia ([facility] [place]) Hyperlipidemia, unspecified hyperlipidemia type ([facility] [place]) Thoracolumbar back pain Hyperlipidemia, unspecified hyperlipidemia type ([facility] [place] Primary Chronic obstructive pulmonary disease, unspecified COPD type ([facility] [place]) Type 2 diabetes mellitus without complication, with long-term current use of insulin ([facility] [place]) Type 2 diabetes mellitus without complication, with long-term current use of insulin ([facility] [place] Primary Type II diabetes mellitus with complication ([facility] [place]) Type II or unspecified type diabetes mellitus with unspecified complication, not stated as uncontrolled Anal pruritus Pruritus ani Acute otitis externa of both ears, unspecified type Type 2 diabetes mellitus without complication, with long-term current use of insulin ([facility] [place]) Type II diabetes mellitus with complication ([facility] [place]) Type II or unspecified type diabetes mellitus with unspecified complication, not stated as uncontrolled Type II diabetes mellitus with complication ([facility] [place]) Type II or unspecified type diabetes mellitus with unspecified complication, not stated as uncontrolled documented in this encounter [facility] HealthcareEvaluation note* Diagnosis Obesity, morbid ([facility] [place] Primary Morbid obesity Type 2 diabetes mellitus without complication, with long-term current use of insulin ([facility] [place]) Schizophrenia, unspecified type ([facility] [place]) Chronic obstructive pulmonary disease, unspecified COPD type ([facility] [place]) Hyperlipidemia, unspecified hyperlipidemia type ([facility] [place]) Encounter for screening for malignant neoplasm of colon Chronic obstructive pulmonary disease, unspecified COPD type ([facility] [place] Primary Type 2 diabetes mellitus without complication, with long-term current use of insulin ([facility] [place]) Tobacco abuse Tobacco use disorder Undifferentiated schizophrenia ([facility] [place]) Type 2 diabetes mellitus without complication, with long-term current use of insulin ([facility] [place] Primary Thoracolumbar back pain Hidradenitis suppurativa of left axilla Type 2 diabetes mellitus without complication, with long-term current use of insulin ([facility] [place] Primary Obesity, morbid ([facility] [place]) Morbid obesity Undifferentiated schizophrenia ([facility] [place]) Hyperlipidemia, unspecified hyperlipidemia type ([facility] [place]) Thoracolumbar back pain Hyperlipidemia, unspecified hyperlipidemia type ([facility] [place] Primary Chronic obstructive pulmonary disease, unspecified COPD type ([facility] [place]) Type 2 diabetes mellitus without complication, with long-term current use of insulin ([facility] [place]) Type 2 diabetes mellitus without complication, with long-term current use of insulin ([facility] [place] Primary Type II diabetes mellitus with complication ([facility] [place]) Type II or unspecified type diabetes mellitus with unspecified complication, not stated as uncontrolled Anal pruritus Pruritus ani Acute otitis externa of both ears, unspecified type Type 2 diabetes mellitus without complication, with long-term current use of insulin ([facility] [place]) Type II diabetes mellitus with complication ([facility] [place]) Type II or unspecified type diabetes mellitus with unspecified complication, not stated as uncontrolled Diabetes mellitus due to underlying condition with diabetic 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, unspecified whether detention insulin use ([facility] [place] Primary Pain due to onychomycosis of toenails of both feet Venous insufficiency Unspecified venous (peripheral) insufficiency documented in this encounter [facility] HealthcareEvaluation note* Diagnosis Obesity, morbid ([facility] [place] Primary Morbid obesity Type 2 diabetes mellitus without complication, with long-term current use of insulin ([facility] [place]) Schizophrenia, unspecified type ([facility] [place]) Chronic obstructive pulmonary disease, unspecified COPD type ([facility] [place]) Hyperlipidemia, unspecified hyperlipidemia type ([facility] [place]) Encounter for screening for malignant neoplasm of colon Chronic obstructive pulmonary disease, unspecified COPD type ([facility] [place] Primary Type 2 diabetes mellitus without complication, with long-term current use of insulin ([facility] [place]) Tobacco abuse Tobacco use disorder Undifferentiated schizophrenia ([facility] [place]) Type 2 diabetes mellitus without complication, with long-term current use of insulin ([facility] [place] Primary Thoracolumbar back pain Hidradenitis suppurativa of left axilla Type 2 diabetes mellitus without complication, with long-term current use of insulin ([facility] [place] Primary Obesity, morbid ([facility] [place]) Morbid obesity Undifferentiated schizophrenia ([facility] [place]) Hyperlipidemia, unspecified hyperlipidemia type ([facility] [place]) Thoracolumbar back pain Hyperlipidemia, unspecified hyperlipidemia type ([facility] [place] Primary Chronic obstructive pulmonary disease, unspecified COPD type ([facility] [place]) Type 2 diabetes mellitus without complication, with long-term current use of insulin ([facility] [place]) Type 2 diabetes mellitus without complication, with long-term current use of insulin ([facility] [place] Primary Type II diabetes mellitus with complication ([facility] [place]) Type II or unspecified type diabetes mellitus with unspecified complication, not stated as uncontrolled Anal pruritus Pruritus ani Acute otitis externa of both ears, unspecified type Type 2 diabetes mellitus without complication, with long-term current use of insulin ([facility] [place]) Type II diabetes mellitus with complication ([facility] [place]) Type II or unspecified type diabetes mellitus with unspecified complication, not stated as uncontrolled Type II diabetes mellitus with complication ([facility] [place] Primary Type II or unspecified type diabetes mellitus with unspecified complication, not stated as uncontrolled Vitamin D deficiency Insulin long-term use ([facility] [place]) Encounter for long-term (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 of insulin Encounter for dietary consultation Class 3 severe obesity due to excess calories with serious comorbidity and body mass index (BMI) of 40.0 to 44.9 in adult ([facility] [place]) documented in this encounter [facility] HealthcareEvaluation note* Diagnosis Obesity, morbid ([facility] [place] Primary Morbid obesity Type 2 diabetes mellitus without complication, with long-term current use of insulin ([facility] [place]) Schizophrenia, unspecified type ([facility] [place]) Chronic obstructive pulmonary disease, unspecified COPD type ([facility] [place]) Hyperlipidemia, unspecified hyperlipidemia type ([facility] [place]) Encounter for screening for malignant neoplasm of colon Chronic obstructive pulmonary disease, unspecified COPD type ([facility] Primary Type 2 diabetes mellitus without complication, with long-term current use of insulin ([facility]) Tobacco abuse Tobacco use disorder Undifferentiated schizophrenia ([facility]) Type 2 diabetes mellitus without complication, with long-term current use of insulin ([facility])- Primary Thoracolumbar back pain Hidradenitis suppurativa of left axilla Type 2 diabetes mellitus without complication, with long-term current use of insulin ([facility])- Primary Obesity, morbid ([facility]) Morbid obesity Undifferentiated schizophrenia ([facility]) Hyperlipidemia, unspecified hyperlipidemia type ([facility]) Thoracolumbar back pain Hyperlipidemia, unspecified hyperlipidemia type ([facility])- Primary Chronic obstructive pulmonary disease, unspecified COPD type ([facility]) Type 2 diabetes mellitus without complication, with long-term current use of insulin ([facility]) Type 2 diabetes mellitus without complication, with long-term current use of insulin ([facility])- Primary Type II diabetes mellitus with complication ([facility]) Type II or unspecified type diabetes mellitus with unspecified complication, not stated as uncontrolled Anal pruritus Pruritus ani Acute otitis externa of both ears, unspecified type Type 2 diabetes mellitus without complication, with long-term current use of insulin ([facility]) Type II diabetes mellitus with complication ([facility]) Type II or unspecified type diabetes mellitus with unspecified complication, not stated as uncontrolled Type II diabetes mellitus with complication ([facility])- Primary Type II or unspecified type diabetes mellitus with unspecified complication, not stated as uncontrolled Chronic obstructive pulmonary disease, unspecified COPD type ([facility]) documented in this encounter [facility] Healthcare[facility]* Diagnosis Obesity, morbid ([facility])- Primary Morbid obesity Type 2 diabetes mellitus without complication, with long-term current use of insulin Schizophrenia, unspecified type Chronic obstructive pulmonary disease, unspecified COPD type ([facility]) Hyperlipidemia, unspecified hyperlipidemia type ([facility]) Encounter for screening for malignant neoplasm of colon Chronic obstructive pulmonary disease, unspecified COPD type ([facility])- Primary Type 2 diabetes mellitus without complication, with long-term current use of insulin Tobacco abuse Tobacco use disorder Undifferentiated schizophrenia ([facility]) Type 2 diabetes mellitus without complication, with long-term current use of insulin- Primary Obesity, morbid ([facility]) Morbid obesity Undifferentiated schizophrenia ([facility]) Hyperlipidemia, unspecified hyperlipidemia type ([facility]) Thoracolumbar back pain Hyperlipidemia, unspecified hyperlipidemia type ([facility])- Primary Chronic obstructive pulmonary disease, unspecified COPD type ([facility]) Type 2 diabetes mellitus without complication, with long-term current use of insulin Type 2 diabetes mellitus without complication, with long-term current use of insulin- Primary Type II diabetes mellitus with complication ([facility]) Type II or unspecified type diabetes mellitus with unspecified complication, not stated as uncontrolled Anal pruritus Pruritus ani Acute otitis externa of both ears, unspecified type Type 2 diabetes mellitus without complication, with long-term current use of insulin Type II diabetes mellitus with complication ([facility]) Type II or unspecified type diabetes mellitus with unspecified complication, not stated as uncontrolled Type II diabetes mellitus with complication ([facility])- Primary Type II or unspecified type diabetes mellitus with unspecified complication, not stated as uncontrolled Chronic obstructive pulmonary disease, unspecified COPD type ([facility]) Chronic obstructive pulmonary disease, unspecified COPD type ([facility])- Primary Undifferentiated schizophrenia ([facility]) Class 3 severe obesity due to excess calories with serious comorbidity and body mass index (BMI) of 40.0 to 44.9 in adult Type 2 diabetes mellitus with hyperglycemia, without long-term current use of insulin ([facility]) documented in this encounter [facility] HealthcareEvaluation note* Diagnosis Obesity, morbid ([facility])- Primary Morbid obesity Type 2 diabetes mellitus without complication, with long-term current use of insulin (HCC) Schizophrenia, unspecified type (HCC) Chronic obstructive pulmonary disease, unspecified COPD type (HCC) Hyperlipidemia, unspecified hyperlipidemia type Encounter for screening for malignant neoplasm of colon Chronic obstructive pulmonary disease, unspecified COPD type (HCC)- Primary Type 2 diabetes mellitus without complication, with long-term current use of insulin (HCC) Tobacco abuse Tobacco use disorder Undifferentiated schizophrenia (HCC) Type 2 diabetes mellitus without complication, with long-term current use of insulin (HCC)- Primary Obesity, morbid ([facility]) Morbid obesity Undifferentiated schizophrenia (HCC) Hyperlipidemia, unspecified hyperlipidemia type Thoracolumbar back pain Hyperlipidemia, unspecified hyperlipidemia type- Primary Chronic obstructive pulmonary disease, unspecified COPD type (HCC) Type 2 diabetes mellitus without complication, with long-term current use of insulin (HCC) Type 2 diabetes mellitus without complication, with long-term current use of insulin (HCC)- Primary Type II diabetes mellitus with complication (HCC) Type II or unspecified type diabetes mellitus with unspecified complication, not stated as uncontrolled Anal pruritus Pruritus ani Acute otitis externa of both ears, unspecified type Type 2 diabetes mellitus without complication, with long-term current use of insulin (HCC) Type II diabetes mellitus with complication (HCC) Type II or unspecified type diabetes mellitus with unspecified complication, not stated as uncontrolled Type II diabetes mellitus with complication (HCC)- Primary Type II or unspecified type diabetes mellitus with unspecified complication, not stated as uncontrolled Chronic obstructive pulmonary disease, unspecified COPD type (HCC) Chronic obstructive pulmonary disease, unspecified COPD type (HCC)- Primary Undifferentiated schizophrenia (HCC) Class 3 severe obesity due to excess calories with serious comorbidity and body mass index (BMI) of 40.0 to 44.9 in adult ([facility]) Type 2 diabetes mellitus with hyperglycemia, without long-term current use of insulin (HCC) Other infective chronic otitis externa of both ears- Primary Other specified hearing loss of left ear, unspecified hearing status on contralateral side Perforation of left tympanic membrane documented in this encounter [facility] HealthcareEvaluation note* Diagnosis Obesity, morbid ([facility])- Primary Morbid obesity Type 2 diabetes mellitus without complication, with long-term current use of insulin (HCC) Schizophrenia, unspecified type (HCC) Chronic obstructive pulmonary disease, unspecified COPD type (HCC) Hyperlipidemia, unspecified hyperlipidemia type Encounter for screening for malignant neoplasm of colon Chronic obstructive pulmonary disease, unspecified COPD type (HCC)- Primary Type 2 diabetes mellitus without complication, with long-term current use of insulin (HCC) Tobacco abuse Tobacco use disorder Undifferentiated schizophrenia (HCC) Type 2 diabetes mellitus without complication, with long-term current use of insulin (HCC)- Primary Obesity, morbid ([facility]) Morbid obesity Undifferentiated schizophrenia (HCC) Hyperlipidemia, unspecified hyperlipidemia type Thoracolumbar back pain Hyperlipidemia, unspecified hyperlipidemia type- Primary Chronic obstructive pulmonary disease, unspecified COPD type (HCC) Type 2 diabetes mellitus without complication, with long-term current use of insulin (HCC) Type 2 diabetes mellitus without complication, with long-term current use of insulin (HCC)- Primary Type II diabetes mellitus with complication (HCC) Type II or unspecified type diabetes mellitus with unspecified complication, not stated as uncontrolled Anal pruritus Pruritus ani Acute otitis externa of both ears, unspecified type Type 2 diabetes mellitus without complication, with long-term current use of insulin (HCC) Type II diabetes mellitus with complication (HCC) Type II or unspecified type diabetes mellitus with unspecified complication, not stated as uncontrolled Type II diabetes mellitus with complication (HCC)- Primary Type II or unspecified type diabetes mellitus with unspecified complication, not stated as uncontrolled Chronic obstructive pulmonary disease, unspecified COPD type (HCC) Chronic obstructive pulmonary disease, unspecified COPD type (HCC)- Primary Undifferentiated schizophrenia (HCC) Class 3 severe obesity due to excess calories with serious comorbidity and body mass index (BMI) of 40.0 to 44.9 in adult ([facility]) Type 2 diabetes mellitus with hyperglycemia, without long-term current use of insulin (HCC) Other infective chronic otitis externa of both ears documented in this encounter [facility] HealthcareEvaluation note* Diagnosis Obesity, morbid ([facility])- Primary Morbid obesity Type 2 diabetes mellitus without complication, with long-term current use of insulin (HCC) Schizophrenia, unspecified type (HCC) Chronic obstructive pulmonary disease, unspecified COPD type (HCC) Hyperlipidemia, unspecified hyperlipidemia type Encounter for screening for malignant neoplasm of colon Chronic obstructive pulmonary disease, unspecified COPD type (HCC)- Primary Type 2 diabetes mellitus without complication, with long-term current use of insulin (HCC) Tobacco abuse Tobacco use disorder Undifferentiated schizophrenia (HCC) Type 2 diabetes mellitus without complication, with long-term current use of insulin (HCC)- Primary Obesity, morbid ([facility]-HCC) Morbid obesity Undifferentiated schizophrenia (HCC) Hyperlipidemia, unspecified hyperlipidemia type Thoracolumbar back pain Hyperlipidemia, unspecified hyperlipidemia type- Primary Chronic obstructive pulmonary disease, unspecified COPD type (HCC) Type 2 diabetes mellitus without complication, with long-term current use of insulin (HCC) Type 2 diabetes mellitus without complication, with long-term current use of insulin (HCC)- Primary Type II diabetes mellitus with complication (HCC) Type II or unspecified type diabetes mellitus with unspecified complication, not stated as uncontrolled Anal pruritus Pruritus ani Acute otitis externa of both ears, unspecified type Type 2 diabetes mellitus without complication, with long-term current use of insulin (HCC) Type II diabetes mellitus with complication (HCC) Type II or unspecified type diabetes mellitus with unspecified complication, not stated as uncontrolled Type II diabetes mellitus with complication (HCC)- Primary Type II or unspecified type diabetes mellitus with unspecified complication, not stated as uncontrolled Chronic obstructive pulmonary disease, unspecified COPD type (HCC) Chronic obstructive pulmonary disease, unspecified COPD type (HCC)- Primary Undifferentiated schizophrenia (HCC) Class 3 severe obesity due to excess calories with serious comorbidity and body mass index (BMI) of 40.0 to 44.9 in adult (CMS-HCC) Type 2 diabetes mellitus with hyperglycemia, without long-term current use of insulin (HCC) Neck pain- Primary Cervicalgia documented in this encounter [facility] Narrative No data available for this section [facility] Hospital Discharge instructions No data available for this section [facility] InstructionsNot on filedocumented in this encounter [facility] No data available for this section [facility] reason for referral (narrative)* Consultation (Routine) - Authorized Specialty Diagnoses / Procedures Referred By Contac t Referred To Contact Neurology Diagnoses Type II diabetes mellitus with complication ([facility]) Procedures [place] OFFICE/OUTPATIENT NEW HIGH MDM 60 MINUTES Ashanti López NP [address] [place] [address] Ministerio Ortiz MD [address] [place] [address] [place] [address] Referral ID Status Reason Start Date Expiration Date Visits Requested Visits Authorized [id number] Authorized Specialty Services Required 04/07/2024 10/04/2024 1 [...] section and content) DATE CREATED AUTHOR 01/09/2018 [facility] DATE CREATED AUTHOR AUTHOR'S ORGANIZ ATION 05/06/2021 [facility] DATE CREATED AUTHOR AUTHOR'S ORGANIZ ATION 11/27/2022 [facility] DATE CREATED AUTHOR AUTHOR'S ORGANIZ ATION 08/06/2023 [facility] DATE CREATED AUTHOR AUTHOR'S ORGANIZ ATION 05/05/2024 [facility] DATE CREATED AUTHOR AUTHOR'S ORGANIZ ATION 12/24/2024 [facility] [address] [facility] DATE CREATED AUTHOR AUTHOR'S ORGANIZ ATION 01/23/2025 [facility] EP[facility] Care Team (unrecognized sect ion and content) Wedding Designer Relationship Specialty Start Date End Date Horace Rollins MD [address] [place] [phone] PCP - General Family Medicine 02/21/24 Ashanti López NP [address] [place] [address] Nurse Practitioner Family Medicine 02/21/24 Wedding Designer Relationship Specialty Start Date End Date Horace Rollins MD [address] [place] [address] PCP - General Family Medicine 02/21/24 Ashanti López NP [address] [place] [address] Nurse Practitioner Family Medicine 02/21/24 Wedding Designer Relationship Specialty Start Date End Date Horace Rollins MD [address] [place] [phone] PCP - General Family Medicine 02/21/24 Ashanti López NP [address] [place] [address] Nurse Practitioner Family Medicine 02/21/24 Wedding Designer Relationship Specialty Start Date End Date Horace Rollins MD [address] [place] [phone] PCP - General Family Medicine 02/21/24 Ashanti López NP [address] [place] [address] Nurse Practitioner Family Medicine 02/21/24 Wedding Designer Relationship Specialty Start Date End Date Horace Rollins MD [address] [place] [address] PCP - General Family Medicine 05/15/24 Ashanti López NP [address] [place] [address] Nurse Practitioner Family Medicine 02/21/24 Wedding Designer Relationship Specialty Start Date End Date Horace Rollins MD [address] [place] [address] PCP - General Family Medicine 05/15/24 Ashanti López NP [address] [place] [address] Nurse Practitioner Family Medicine 02/21/24 Wedding Designer Relationship Specialty Start Date End Date Horace Rollins MD [address] [place] [address] PCP - General Family Medicine 05/15/24 Ashanti López NP [address] [place] [address] Nurse Practitioner Family Medicine 02/21/24 Wedding Designer Relationship Specialty Start Date End Date Horace Rollins MD [address] [place] [address] PCP - General Family Medicine 05/15/24 Ashanti López NP [address] [place] [address] Nurse Practitioner Family Medicine 02/21/24 Wedding Designer Relationship Specialty Start Date End Date Horace Rollins MD [address] [place] [address] PCP - General Family Medicine 02/21/24 Ashanti López NP [address] [place] [address] Nurse Practitioner Family Medicine 02/21/24 Wedding Designer Relationship Specialty Start Date End Date Horace Rollins MD [address] [place] [address] PCP - General Family Medicine 02/21/24 Ashanti López NP [address] [place] [address] Nurse Practitioner Family Medicine 02/21/24 Wedding Designer Relationship Specialty Start Date End Date Horace Rollins MD [address] [place] [address] PCP - General Family Medicine 02/21/24 Ashanti López NP [address] [place] [address] Nurse Practitioner Family Medicine 02/21/24 Wedding Designer Relationship Specialty Start Date End Date Horace Rollins MD [address] [place] [address] PCP - General Family Medicine 05/15/24 Ashanti López NP [address] [place] [address] Nurse Practitioner Family Medicine 02/21/24 Wedding Designer Relationship Specialty Start Date End Date Hroace Rollins MD [address] [place] [address] PCP - General Family Medicine 02/21/24 Ashanti López NP [address] [place] [address] Nurse Practitioner Family Medicine 02/21/24 Wedding Designer Relationship Specialty Start Date End Date Horace Rollins MD [address] [place] [address] PCP - General Family Medicine 02/21/24 Ashanti López NP [address] [place] [address] Nurse Practitioner Family Medicine 02/21/24 Wedding Designer Relationship Specialty Start Date End Date Horace Rollins MD [address] [place] [address] PCP - General Family Medicine 02/21/24 Ashanti López NP [address] [place] [address] Nurse Practitioner Family Medicine 02/21/24 Wedding Designer Relationship Specialty Start Date End Date Horace Rollins MD [address] [place] [address] PCP - General Family Medicine 05/15/24 Ashanti López NP [address] [place] [address] Nurse Practitioner Family Medicine 02/21/24 Wedding Designer Relationship Specialty Start Date End Date Horace Rollins MD [address] [place] [address] PCP - General Family Medicine 05/15/24 Ashanti López NP [address] [place] [address] Nurse Practitioner Family Medicine 02/21/24 Wedding Designer Relationship Specialty Start Date End Date Horace Rollins MD [address] [place] [address] PCP - General Family Medicine 05/15/24 Ashanti López NP [address] [place] [address] Nurse Practitioner Family Medicine 02/21/24 Wedding Designer Relationship Specialty Start Date End Date Horace Rollins MD [address] [place] [address] PCP - General Family Medicine 05/15/24 Ashanti López NP [address] [place] [address] Nurse Practitioner Family Medicine 02/21/24 Wedding Designer Relationship Specialty Start Date End Date Horace Rollins MD [address] [place] [address] PCP - General Family Medicine 05/15/24 Ashanti López NP [address] [place] [address] Nurse Practitioner Family Medicine 02/21/24 Wedding Designer Relationship Specialty Start Date End Date Horace Rollins MD [address] [place] [address] PCP - General Family Medicine 05/15/24 Ashanti López NP [address] [place] [address] Nurse Practitioner Family Medicine 02/21/24 Wedding Designer Relationship Specialty Start Date End Date Horace Rollins MD [address] [place] [address] PCP - General Family Medicine 05/15/24 Ashanti López NP [address] [place] [address] Nurse Practitioner Family Medicine 02/21/24 Wedding Designer Relationship Specialty Start Date End Date Horace Rollins MD [address] [place] [address] PCP - General Family Medicine 05/15/24 Ashanti López NP Nurse Practitioner Family Medicine 02/21/24 Wedding Designer Relationship Specialty Start Date End Date Horace Rollins MD [address] [place] [address] PCP - General Family Medicine 05/15/24 Ashanti López NP Nurse Practitioner Family Medicine 02/21/24 Wedding Designer Relationship Specialty Start Date End Date Horace Rollins MD [address] [place] [address] PCP - General Family Medicine 05/15/24 Ashanti López NP Nurse Practitioner Family Medicine 02/21/24 Wedding Designer Relationship Specialty Start Date End Date Horace Rollins MD [address] [place] [address] PCP - General Family Medicine 05/15/24 Ashanti López NP Nurse Practitioner Family Medicine 02/21/24 Lisseth Chang, TRANSPORTATION ECONOMICS TEACHER [address] [place] [address] Representative Family Medicine 01/13/25 Wedding Designer Relationship Specialty Start Date End Date Horace Rollins MD [address] [place] [address] PCP - General Family Medicine 05/15/24 Ashanti López NP Nurse Practitioner Family Medicine 02/21/24 Lisseth Chang, TRANSPORTATION ECONOMICS TEACHER [address] [place] [address] Representative Family Medicine 01/13/25 Wedding Designer Relationship Specialty Start Date End Date Horace Rollins MD [address] [place] [address] PCP - General Family Medicine 05/15/24 Ashanti López NP Nurse Practitioner Family Medicine 02/21/24 Lisseth Chang, TRANSPORTATION ECONOMICS TEACHER [address] [facility] [place] [address] Representative Family Medicine 01/13/25 Wedding Designer Relationship Specialty Start Date End Date Horace Rollins MD [address] [place] [address] PCP - General Family Medicine 05/15/24 Ashanti López NP Nurse Practitioner Family Medicine 02/21/24 Lisseth Chang, TRANSPORTATION ECONOMICS TEACHER [address] [facility] [place] [address] Representative Family Medicine 01/13/25 Wedding Designer Relationship Specialty Start Date End Date Horace Rollins MD [address] [place] [address] PCP - General Family Medicine 05/15/24 Ashanti López NP Nurse Practitioner Family Medicine 02/21/24 Lisseth Chang, TRANSPORTATION ECONOMICS TEACHER [address] [facility] [place] [address] Representative Family Medicine 01/13/25 Wedding Designer Relationship Specialty Start Date End Date Horace Rollins MD [address] [place] [address] PCP - General Family Medicine 05/15/24 Ashanti López NP Nurse Practitioner Family Medicine 02/21/24 Lisseth Chang, TRANSPORTATION ECONOMICS TEACHER [address] [place] [address] Representative Family Medicine 01/13/25 03/05/25 Reason for Visit (unrecogniz ed section and content) Reason Comments Toenail Care Reason Comments Blood Sugar Problem Elevated FBS's in e 250's, Pt recently started diet back up and FBS's have been 100 to 120 Reason Comments Follow-up Reason Comments Follow-up Ear Drainage NERVE PAIN Reason Comments DM Foot Care Dm nail care Reason Comments Diabetes Specialty Diagnoses / Procedures Referred By Contac t Referred To Contact Endocrinology Diagnoses Type II diabetes mellitus with complication ([facility]) Procedures [place] OFFICE/OUTPATIENT NEW HIGH MDM 60 MINUTES Ashanti López NP [address] [place] [address] Phone: tel: fax: Zaria Lane MD [address], [address] [place] [address] Phone: tel: fax: Referral ID Status Reason Start Date Expiration Date V isits Requested Visits Authorized [id number] Closed Specialty Services Required 05/19/2024 11/15/2024 1 1 Reason Onset Date Comments Medication Problem 08/26/2024 Reason Onset Date Comments NEW PATIENT REFERRAL 05/28/2024 Reason Onset Date Comments Medication Problem 11/20/2024 Reason Comments Follow-up Muscle soreness Reason Comments Ear Problem Ear drainage Reason Comments Med Change Request Reason Comments Follow-up Neck pain/ ear pain FOR RECORDS PERTAINING TO PATIENTS WHO ARE [...] BE BASED ON THE PRIMARY CLINICAL RECORDS. [facility] [employer] [facility]. provides no warranty or guarantee of the accuracy or completeness of information in this document.
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
[2025-03-28 18:37] LABS: Hematocrit 40.9 % (42.0-54.0); Hemoglobin 15.0 g/dL (14.0-18.0); Immature Granulocytes Abs Auto 0.04 10^3/uL (0.00-0.03); Immature Granulocytes Pct Auto 0.5 % (0.0-0.5); Lymphocytes Absolute Auto 1.3 10^3/uL (1.2-3.8); Mean Corpuscular HGB Conc 36.7 g/dL (29.9-35.2); Mean Corpuscular Hemoglobin 32.8 pg (25.9-34.0); Mean Corpuscular Volume 89.5 fL (80.0-94.0); Platelet Count 172 10^3/uL (150-450); Red Blood Count 4.57 10^6/uL (4.70-6.10); White Blood Count 7.3 10^3/uL (4.0-11.0)
[2025-03-28 18:51] LABS: Albumin Globulin Ratio 0.6; Albumin Level 3.0 g/dL (3.4-5.0); Alkaline Phosphatase 214 U/L (46-116); Anion Gap 17.9; Blood Urea Nitrogen 21.0 mg/dL (7.0-18.0); Calcium 9.0 mg/dL (8.5-10.1); Carbon Dioxide 23.3 mmol/L (21.0-32.0); Chloride 97 mmol/L (98-107); Estimated GFR (African America >60 (>=60 mL/min/1.73m^2); Estimated GFR (Non-African Ame >60 (>=60 mL/min/1.73m^2); Globulin 4.8 g/dL; Potassium 4.2 mmol/L (3.5-5.1); Sodium 134 mmol/L (136-145); Total Protein 7.8 g/dL (6.4-8.2)
[2025-03-28 19:14] LABS: Glucose 504 mg/dL (74-106)
[2025-03-28 19:16] LABS: Magnesium 1.7 mg/dL (1.8-2.4)
[2025-03-28 19:19] LABS: Aspartate Amino Transferase 24 U/L (15-37)
[2025-03-28 19:20] LABS: Alanine Aminotransferase 43 U/L (16-63)
[2025-03-28] MEDS: INSULIN ASPART 300 UNIT/3 ML PEN 18 UNIT SUBQ (19:44)
[2025-03-28 20:01] LABS: Glucose Urine UA >=1000 mg/dL (NEGATIVE)
[2025-03-28] MEDS: ACETAMINOPHEN 500 MG TABLET 1000 MG PO (20:09)
[2025-03-28 20:10] LABS: Salicylate <2.8 mg/dL (<=19.9)
[2025-03-28 20:15] LABS: Cannabinoid Screen Urine NEGATIVE (NEGATIVE)
[2025-03-28 20:16] LABS: Methamphetamines Screen Urine NEGATIVE (NEGATIVE); Tricyclic Antidepressant Urine NEGATIVE (NEGATIVE)
[2025-03-28 20:28] LABS: Acetaminophen <2.0 ug/mL (10.0-30.0)
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
== END 2025-03-29 02:05 ==
PROVIDERS: Emergency Medicine; Emergency Provider Internal Medicine; PCP Family Medicine
DX: F22 Delusional disorders (principal); E11.65 Type 2 diabetes mellitus with hyperglycemia; T38.3X6A Underdosing of insulin and oral hypoglycemic [antidiabetic] drugs, initial encounter; Z91.128 Patient's intentional underdosing of medication regimen for other reason
CPT/HCPCS: 36415; 80053; 80179; 80307; 80320; 80329; 81003; 82948; 83735; 84100; 85025; 93005; 99285

== ENCOUNTER 2025-05-27 13:22 | Outpatient (OUT) | payer MEDICARE, SELFPAY ==
--- OUTSIDE RECORDS SUMMARY | 2025-05-19 10:01 | XMS_ITS | Continuity of Care Document ---
Author Organization [facility] Address [address] [place] [address] Phone Care Team Providers Care Rent And Housing Investigator Name Role Phone Bam Mcfarland MD Primary Care Provider Katie Linda MD Attending Provider [phone] Lori Harper DO Primary Care Provider Lori Harper DO Attending Provider [phone] Kota Pozo MD Attending Provider Care Teams Patient Care Team Team Status: Active Member Role/Relationship Status Dates Lori Harper DO Primary Care Provider Active Visit Care Team Team Status: Active Member Role/Relationship Status Dates Bam Mcfarland MD Primary Care Provider Active Start: March 28, 2025 Gracy Perez ProviderActiveStart: March 28, 2025 Visit Care Team Team Status: Inactive Member Role/Relationship Status Dates Lori Lealp DO Primary Care Provider Active S tart: April 16, 2025 End: April 16, 2025Jessmaru Meredith , DOAttending ProviderActiveStart: April 16, 2025 End: April 16, 2025 Visit Care Team Team Status: Active Member Role/Relationship Status Dates Bam Mcfarland MD Primary Care Provider Active Start: May 08, 2025 Gracy Padron ProviderActiveStart: May 08, 2025 Patient Care Team Team Status: Inactive Member Role/Relationship Status Dates Lori Lealp , DO Primary Care Provider Active S tart: May 19, 2025 End: May 19, 2025Jehumera Meredith , DOAttending ProviderActiveStart: May 19, 2025 End: May 19, 2025 Chief Complaint and Reason for Visit Chief Complaint Admit Date neck and back pain April 16, 2025 9: 23am BH May 08, 2025 9 :57am MUSCLES SORE May 19, 2025 2 :22pm Reason for Visit Admit Date Degenerative disc disease, cervical Octo hoang 2024 9:23am Degenerative disc disease, lumbar Octobe r 2024 9:23am Diabetes April 16, 2025 9: 23am Face lesion April 16, 2025 9: 23am Infected dental caries April 16, 2025 9:23am Schizophrenia, acute April 16, 2025 9 :23am COPD (chronic obstructive pulmonary dise ase) May 19, 2025 2:22pm Degenerative disc disease, cervical Nove mber 2024 2:22pm Degenerative disc disease, lumbar Novemb er 2024 2:22pm Diabetes May 19, 2025 2 :22pm Muscle cramps May 19, 2025 2 :22pm Pain in knee joint May 19, 2025 2 :22pm Schizophrenia, acute May 19, 2025 2:22pm Allergies, Adverse Reactions, Alerts Allergen Type Severity Reaction Last Updated Verified Status shellfish derived Allergy Severe Unknown Reaction N ovember 2024 2:29pm Yes Active amitriptyline Allergy Unknown Palpitations May 19, 2025 2:29pm Yes Active metformin Allergy Unknown GI Intolerance May 192024 2:29pm Yes Active naproxen Allergy Unknown Unknown Reaction May 19, 2025 2:29pm Yes Active Social History Smoking Status Status Start Date End Date Date of Observa tion Ex-smoker (finding) April 16, 2025 9:41am Observation Status Observation Response Date of Response Legal Sex [facility] (finding) [facility] Family History Relationship Condition Age at Onset Recorded Date/T hina father Diabetes mellitus Unknown Heart diseaseUnknownmotherMental disorderUnknownsisterMental disorderUnknown Problems Active Problems Problem Diagnosis/Recorded Date Onset Date Stat Diabetes April 08, 2025 1:02pm Unknown Active Pain in knee joint May 19, 2025 2:44pm Unknown Active Face lesion April 16, 2025 9:11am Unknown Act hailey Muscle cramps May 19, 2025 2:44pm Unknown A ctive Infected dental caries April 16, 2025 9:11am Unknow n Active Degenerative disc disease, cervical April 16, 2025 8:57am Unknown Active Degenerative disc disease, lumbar April 15, 2025 7: 12am Unknown Active COPD (chronic obstructive pu lmonary disease) April 15, 2025 7:10am Unknown Active Schizophrenia, acute March 16, 2017 1:48pm Unknow n Active Inactive/Resolved Problems Problem Diagnosis/Recorded Date Onset Date Stat us Palpitations November 09, 2018 4:40pm Unknown Reso lved Medications Medication Status Dose Units Route Directions Qty Days Refills S tart Date Stop Date End Date Reason(s) Instructions Adherence Clindamycin Hcl 150 mg capsule Discontinued 150 MG PO Three times daily 21 7 0 April 28, 2025 8:58am May 19, 2025 2:30pmClonazepam 0.5 mg TabletDiscontinued0.25MGPOEvery zulcjbu29Rbmmiwofv 5th, 2017 11:00pmSeptember 2016 9:55amHaloperidol Decanoate 50 mg/mL BnrneqijMytcolkifhel25CNZAN79R19Pfuhgyqjt 5th, 2017 11:00pm April 15, 2025 7:07amClonazepam 0.5 mg TabletDiscontinued0.5MGPOTwice daily April 12, 2017 11:00pmOct2016 4:41pmTrazodone 50 mg Tablet Afhelghpvgov80GAVNSqszd at yugahnw591Hvnyzty2016 11:00pmApril 2018 12:25pmClonazepam 0.5 mg TabletDiscontinued0.5MGPOTwice daily as needed for Oicensp83Clsprdo2016 11:00pmApril 2018 12:25pmLurasidone (Latuda) 40 mg MunrsrVxizyuqpkmai41MICQCkfnb with jfvdwu700Lqwmkov2016 11:00pmApril 2018 12:25pmHaloperidol Decanoate 50 mg/mL SyxlridzDudicmowfvmw37CZNVQ80R April 11, 2017 11:00pmApril 2018 12:25pmClonazepam (Klonopin) 0.5 mg TabletDiscontinued0.5MGPOTwice dailySept2016 11:00pmApril 2018 12:25pmGlipizide 10 mg vxkfeiYgrzee88LWRHOyjgfEpyqkrhcj 25th, 2025 11:00pm Complies with drug therapyInsulin Glargine (Lantus Solostar U-100 Insulin) 100 unit/mL (3 mL) insulin wrcAbriuhljasvd34LBMMHEJLTDLdjmh eveningSept2024 11:00pmOct2024 7:09amCariprazine (Vraylar) 6 mg uaiwbhgKuvfsb7GS PODailySept2024 11:00pmComplies with drug therapyAlbuterol Sulfate 2.5 mg /3 mL (0.083 %) solution for nebulizationActive2.5MGINHALATIONEvery 4 hours as neededSe2024 11:00pmComplies with drug therapy Pioglitazone (Actos) 45 mg wfrhvbQxjwze97SBXJJsamoRixnlcogd 30th, 2025 11:00pm Complies with drug therapyInsulin Glargine (Lantus Solostar U-100 Insulin) 100 unit/mL (3 mL) insulin vqqJurrqs97DDEIQKIDGHMzble eveningOct2024 7:05amComplies with drug therapySemaglutide (Ozempic) 0.25 mg or 0.5 mg (2 mg/3 mL) pen injectorDiscontinued0.5MGSUBCUTevery 2024 11:00pm April 16, 2025 8:43amfor 4 weeksXanomeline-Trospium (Cobenfy) 50-20 mg xmbuopwIjehvi7CPSWYSytfp dailyApril 14, 2025 11:00pmComplies with drug therapyClindamycin Hcl 150 mg xjbfscoHhqcitdhhcjm607PPDKWmvqu times wjkbz3692 April 15, 2025 11:00pmOctober 2024 8:58amCelecoxib (Celebrex) 100 mg gykynewTkyndmdutkea783HCEBXvgqz otwjy80173Uvgcvob2024 11:00pmNov2024 2:40pmIbuprofen 800 mg lzxmboRhvnbd578IBBHYanrf times daily as needed for xsiz98253Fyzdoupg2024 12:00amComplies with drug therapy Relevant Diagnostic Tests and/or Laboratory Data Laboratory Results Test Collection Date/Time Result Date/Time Result Interpretation Reference Range Result Comment Performing Site Acetaminophen Level March 28, 2025 5:25pm March 28, 2025 5:25pm <2.0 ug/mL Below low normal 10.0-30.0 Salicylates LevelSeptember 2024 5:25pmSept2024 5:25pm<2.8 mg/dL<=19.9Phosphorus LevelSeptember 2024 5:25pm3.3 mg/dL2.6-4.7Anion Gap March 28, 2025 5:25pm17.9Ethyl Alcohol LevelSeptember 2024 5:25pm March 28, 2025 5:25pm<3 mg/dLNOTE: 80 mg/dl is the legal limit for a blood alcohol levelMagnesium LevelSeptember 2024 5:25pmSept2024 5:25pm1.7 mg/dLBelow low normal1.8-2.4Basophils # (Auto)March 28, 2025 5:25pmSeptember 2024 5:25pm0.1 10 3/uL0.0-0.1Urine Amphetamines Screen March 28, 2025 6:55pmSept2024 6:55pmNEGATIVENEGATIVEUrine Microscopic ReviewSept2024 6:55pmSept2024 6:55pmNO Albumin/Globulin RatioSept2024 5:25pm0.6Basophils (%) (Auto) March 28, 2025 5:25pmSeptember 2024 5:25pm0.8 %0.2-2.0Urine Barbiturates ScreenSept2024 6:55pmSept2024 6:55pm NEGATIVENEGATIVEUrine BilirubinSept2024 6:55pmSept2024 6:55pmNEGATIVENEGATIVEAlbuminSept2024 5:25pm3.0 g/dLBelow low normal 3.4-5.0Eosinophils # (Auto)March 28, 2025 5:25pmSeptember 2024 5:25pm0.1 10 3/uL0.0-0.7Urine Benzodiazepines ScreenSeptember 2024 6:55pm March 28, 2025 6:55pmNEGATIVENEGATIVEUrine Occult BloodSept2024 6:55pmSeptember 2024 6:55pmNEGATIVENEGATIVEAlkaline Phosphatase March 28, 2025 5:42on058 U/LAbove high uexngg86-432Tfdfrmpogeo (%) (Auto) March 28, 2025 5:25pmSeptember 2024 5:25pm1.8 %0.9-7.0Urine BuprenorphineSept2024 6:55pmSept2024 6:55pmNEGATIVE NEGATIVEDRUG CLASS TEST SYSTEM CUT-OFF CONCENTRATIONS ARE ASFOLLOWS:AMP (Amphetamine): 500 ng/mLBAR (Barbiturates): 200 ng/mLBZO (Benzodiazepines): 150 ng/mLBUP (Buprenorphine): 10 ng/mLCOC (Cocaine): 150 ng/mLmAMP (Methamphetamine): 500 ng/mLMTD (Methadone): 200 ng/mLOPI (Opiates): 100 ng/mLOXY (Oxycodone): 100 ng/mLPCP (Phencyclidine): 25 ng/mLTHC (Cannabinoids): 50 ng/mLTCA (Trycyclic Antidepressants): 300 ng/mLUrine AppearanceSept2024 6:55pmSeptember 2024 6:55pmSL CLOUDYCLEARAlanine Aminotransferase (ALT/SGPT)March 28, 2025 5:25pm43 U/S65-22Ccoofziiuj March 28, 2025 5:25pmSeptember 2024 5:25pm40.9 %Below low normal 42.0-54.0Urine Cocaine ScreenSeptember 2024 6:55pmSeptember 2024 6:55pmNEGATIVENEGATIVEUrine ColorSeptember 2024 6:55pmSeptember 2024 6:55pmLT. YELLOWYELLOWAspartate Amino Transf (AST/SGOT)March 28, 2025 5:25pm24 U/Q56-89HdksbhykdqNpfmayxav 2024 5:25pmSeptember 2024 5:25pm15.0 g/dL14.0-18.0Urine Methamphetamines ScreenSeptember 2024 6:55pm March 28, 2025 6:55pmNEGATIVENEGATIVEUrine Glucose (UA)March 28, 2025 6:55pmSeptember 2024 6:55pm>=1000 mg/dLAbnormal (applies to non- numeric results)NEGATIVEBUN/Creatinine RatioSeptember 2024 5:25pm22.8 Immature Granulocyte # (Auto)March 28, 2025 5:25pmSeptember 2024 5:25pm0.04 10 3/uLAbove high normal0.00-0.03Urine Methadone Screen.March 28, 2025 6:55pmSeptember 2024 6:55pmNEGATIVENEGATIVEUrine Ketones March 28, 2025 6:55pmSeptember 2024 6:55pm15 mg/dLAbnormal (applies to non-numeric results)NEGATIVEBlood Urea NitrogenSeptember 2024 5:25pm 21.0 mg/dLAbove high normal7.0-18.0Immature Granulocyte % (Auto)March 28, 2025 5:25pmSeptember 2024 5:25pm0.5 %0.0-0.5Urine Opiates ScreenSeptember 2024 6:55pmSeptember 2024 6:55pmNEGATIVENEGATIVEUrine Leukocyte EsteraseSeptember 2024 6:55pmSeptember 2024 6:55pmNEGATIVENEGATIVE Calcium LevelSeptember 2024 5:25pm9.0 mg/dL8.5-10.1Lymphocytes # (Auto) March 28, 2025 5:25pmSeptember 2024 5:25pm1.3 10 3/uL1.2-3.8Urine Oxycodone/Oxymorphone ScreenSeptember 2024 6:55pmSeptember 2024 6:55pmNEGATIVENEGATIVEUrine NitriteSeptember 2024 6:55pmSeptember 2024 6:55pmNEGATIVENEGATIVEChloride LevelSeptember 2024 5:25pm97 mmol/L Below low ihcnid74-657Bxjbcisoago (%) (Auto)March 28, 2025 5:25pmSeptember 2024 5:25pm17.6 %Below low sfnelf05.5-60.0Urine Phencyclidine Screen March 28, 2025 6:55pmSeptember 2024 6:55pmNEGATIVENEGATIVEUrine pH March 28, 2025 6:55pmSept2024 6:55pm5.55.0-9.0Carbon Dioxide LevelSeptember 2024 5:25pm23.3 mmol/L21.0-32.0Mean Corpuscular Hemoglobin March 28, 2025 5:25pmSeptember 2024 5:25pm32.8 pg25.9-34.0Urine Tricyclic AntidepressantsSeptember 2024 6:55pmSeptember 2024 6:55pm NEGATIVENEGATIVEUrine ProteinSept2024 6:55pmSeptember 2024 6:55pmNEGATIVE mg/dLNEG/TRACECreatinineSept2024 5:25pm0.92 mg/dL 0.70-1.30Mean Corpuscular Hemoglobin ConcentSept2024 5:25pmSeptember 2024 5:25pm36.7 g/dLAbove high pqowqj74.9-35.2Urine Marijuana (THC) Screen March 28, 2025 6:55pmSept2024 6:55pmNEGATIVENEGATIVEUrine Specific GravitySept2024 6:55pmSept2024 6:55pm1.015 1.005-1.025Estimated GFR ()March 28, 2025 5:25pm>60>=60 mL/min/1.73m 2Mean Corpuscular VolumeSept2024 5:25pmSeptember 2024 5:25pm89.5 fL80.0-94.0Urine UrobilinogenSeptember 2024 6:55pm March 28, 2025 6:55pm0.2 EU/dL0.2-1.0Estimated GFR (Non- March 28, 2025 5:25pm>60>=60 mL/min/1.73m 2Monocytes # (Auto)March 28, 2025 5:25pmSeptember 2024 5:25pm0.5 10 3/uL0.3-0.8GlobulinSeptember 2024 5:25pm4.8 g/dLMonocytes (%) (Auto)March 28, 2025 5:25pm March 28, 2025 5:25pm6.8 %1.7-12.0Glucose LevelSeptember 2024 5:25pm 504 mg/dLAbove upper panic -921QQRXYKI CALLED TO DICKSON MAZARIEGOS RN at 1911Mean Platelet VolumeSeptember 2024 5:25pmSeptember 2024 5:25pm 10.3 fL9.5-13.5Potassium LevelSeptember 2024 5:25pm4.2 mmol/L3.5-5.1 Neutrophils # (Auto)March 28, 2025 5:25pmSeptember 2024 5:25pm5.3 10 3/uL1.4-6.5Sodium LevelSeptember 2024 5:39so329 mmol/LBelow low normal 136-145Neutrophils (%) (Auto)March 28, 2025 5:25pmSeptember 2024 5:25pm72.5 %43.0-75.0Total BilirubinSeptember 2024 5:25pm0.3 mg/dL0.2-1.0 Platelet CountSeptember 2024 5:25pmSeptember 2024 5:91sp607 10 3/uL 150-450Total ProteinSeptember 2024 5:25pm7.8 g/dL6.4-8.2Red Blood Count March 28, 2025 5:25pmSept2024 5:25pm4.57 10 6/uLBelow low normal4.70-6.10Red Cell Distribution WidthSept2024 5:25pmSept2024 5:25pm11.8 %11.0-15.0Corrected White Blood CountSept2024 5:25pmSept2024 5:25pm7.3 10 3/uL4.0-11.0 Vital Signs Vital Reading Result Reference Range Collection Date/Time Height 67 [in_i] April 16, 2025 8:32btHgdags427.93 kgOctober 2024 8:36amHeart Rate88 /min 60-100Oct2024 8:36amRespiratory rate20 /nsj45-26Kdvbzou 2nd, 2025 8:36amOxygen saturation by Pulse sutyctsz40 %95-100Oct2024 8:36amBP Lwbimxba984 mm[Hg]100-140Oct2024 8:36amBP Uuxzesdnv94 mm[Hg]60-100 April 16, 2025 8:36amBMI (Body Mass Index)40.7 kg/y5Ffuhxdv2024 8:36am Emrczv02 [in_i]May 19, 2025 2:21kbXfresx884.82 kgNov2024 2:26pm Heart Azek750 /sml79-536Hywdyajv 4th, 2025 2:26pmRespiratory rate20 /pcy00-39 May 19, 2025 2:26pmOxygen saturation by Pulse mxjawigy78 %95-100Nov2024 2:26pmBP Nknnnvfb926 mm[Hg]100-140Nov2024 2:26pmBP Wqwvbosdd44 mm[Hg]60-100Nov2024 2:26pmBMI (Body Mass Index)44.4 kg/m2 May 19, 2025 2:26pm Advance Directives Advance Directive Response Recorded Date/ Time Advance Directives No March 15, 2017 12:52pm Insurance Providers Guarantor Alyssa Dinh Address [address] [facility] [id number] Info.Home Phone: Payer Group Member ID Coverage Type Subscriber Relationship to Subscriber Effective Date Expiration Date Medicare [id number] [place] , D Id: [id number] [address] [facility] [address] Home Phone: selfHumana [facility] [id number] Gibson Id: [id number] [address] [facility] [address] Home Phone: Self Encounters Encounter Location(s) Arrival/Admit Date Discharge/Departure Date Discharge/Departure Disposition Provider(s) Non-patient / Non-visit -[facility] March 28, 2025 6:25pm Katie Linda , MDDeparted Physician/Provider Office Visit-[facility] Family Medicine [facility] 2024 9:23amOctober 2024 10:18amDischarged to home care or self care (routine discharge)Catalino Cano [facility] May 08, 2025 9:57amAsadiq Pozo , MDDeparted Physician/Provider Office Visit-[facility] Family Medicine [facility] 2024 2:22pmNovember 2024 2:59pmDischarged to home care or self care (routine discharge)Lori Harper , Recent Diagnosis Onset Date Admit Date Degenerative disc disease, cervical Unknown April 16, 2025 9:23am Degenerative disc disease, lumbar Unknown April 16, 2025 9:23am Diabetes Unknown April 16 9:23am Face lesion Unknown April 16 9:23am Infected dental caries Unknown April 162024 9:23am Schizophrenia, acute Unknown April 9:23am COPD (chronic obstructive pulmonary disease) Unk nown May 19, 2025 2:22pm Degenerative disc disease, cervical Unknown May 19, 2025 2:22pm Degenerative disc disease, lumbar Unknown May 19, 2025 2:22pm Diabetes Unknown May 19 2:22pm Muscle cramps Unknown May 19 2:22pm Pain in knee joint Unknown May 19, 2025 2:22pm Schizophrenia, acute May 2:22pm Assessments Diagnosis Onset Date Resolution Status Admit Date Degenerative disc disease, cervical acuteOctober 2024 9:23amDegenerative disc disease, lumbaracuteOctober 2024 9:23amDiabetesacuteOctober 2024 9:23amFace lesionacuteOctober 2024 9:23amInfected dental cariesacuteOctober 2024 9:23amSchizophrenia, acuteacuteOctober 2024 9:23amCOPD (chronic obstructive pulmonary disease) acuteNov2024 2:22pmDegenerative disc disease, cervicalacuteNov2024 2:22pmDegenerative disc disease, lumbaracuteNov2024 2:22pm DiabetesacuteNov2024 2:22pmMuscle crampsacuteNovember 2024 2:22pmPain in knee jointacuteNov2024 2:22pmSchizophrenia, acuteacute May 19, 2025 2:22pm Plan of Treatment Author Lori Harper [facility] SouthAuthoredOctober 2024 9:26amPatient has tried flexeril, prednisone; he has never seen pain management; referral placed; will try him on celebrex in the meantime. reviewed X-ray that showed DDD; referral to pain management; try Celebrex for pain. Start Clindamycin 150mg TID x 7 days. Most likely from picking from schizophrenia Placed on Clindamycin, encouraged dental appoitment. Has appointment with endocrinology 04/21/25, please keep appointment. Patient has history of non-compliance with medications just recently got discharged from inpatient facility. Will need to get updated medication list. Future Tests Future scheduled test information is unavailable Pending Tests Test Name Ordered Date Scheduled Date Comprehensive Metabolic Panel May 19, 2025 2:51pm Future Visits Future appointment information is unavailable Future Procedures Procedure Name Ordered Date Scheduled Date Complete Blood Count Auto Diff May 19 2:51pm C-Reactive ProteinNov2024 2:49pmErythrocyte Sedimentation Rate May 19, 2025 2:49pmMagnesiumNov2024 2:49pmThyroid Stimulating HormoneMay 19, 2025 2:51pmUric AcidMay 19, 2025 2:49pm Future Medications Future medication information is unavailable Patient Instructions Patient instructions are unavailable
--- OUTSIDE RECORDS SUMMARY | 2025-05-27 13:28 | XMS_ITS | Clinical Summary ---
Author Organization [facility] Address [address] [place] [address] Care Team Providers Care Coordinator [employer] Name Role Phone Unavailable Primary Care Provider Unavailabl e Source Comments The following information is NOT included in Care Everywhere downloads:Psychiatric notes, ECG results, Cardiac Rehab notes, Pulmonary Function notes, data from SmartForms (includes but not limited toPregnancy data,audiograms, eye exams, pre-surgical evaluation notes, well-child exam data).[facility] Social History Tobacco UseTypesPacks/DayYears UsedDateSmoking Tobacco: Never AssessedSex and Gender InformationValueDate RecordedSex Assigned at BirthNot on fileLegal Sex Male04/28/2021 11:14 AM EDTGender IdentityNot on fileSexual OrientationNot on file Plan of Treatment Health MaintenanceDue DateLast AyriXjgdncmyKvghkhcfwhw1972HIV Test 1987Hepatitis C Jkwjjlec92/16/1990Tdap Epsjipi3805/31/1990Hepatitis A (HAV) Vaccine (optional start 19+ years)1991Hepatitis B (HBV) Vaccine (1 of 3 - 19+ 3-dose series)1991Tetanus (Td or Tdap) Dobalcj3805/31/1991Cholesterol 2007CRC Krwhpkimd25/16/2017Cologuard (Stool DNA)2017FIT2017 Pneumococcal Vaccine(s) (50+ yrs) (1 of 1 - PCV)2022hingles (RZV) Vaccine (1 of 2)2COVID-19 Vaccine (3 - 2024- season)/, 12/11/2020Influenza Vaccine (#1)2025 Insurance on file
--- OUTSIDE RECORDS SUMMARY | 2025-05-27 13:28 | XMS_ITS | Clinical Summary ---
Author Organization [facility] Address [facility] [id number] [address] [place] [address] Care Team Providers Care Vice President Of Recruiting Name Role Phone Unavailable Primary Care Provider Unavailabl e Social History Tobacco UseTypesPacks/DayYears UsedDateSmoking Tobacco: Never AssessedChildcare AnswerDate LxuibjgqMdkgzykzbHitwupr50/12/2019EmploymentAnswerDate Recorded QwtgsfuodsIohmbkm78/12/2019Sex and Gender InformationValueDate RecordedSex Assigned at BirthNot on fileLegal QdiBiwx8402/18/2015 11:47 AM EDTGender Identity Not on fileSexual OrientationNot on file Plan of Treatment Health MaintenanceDue DateLast DoneCommentsDepression Uwkfbfiwz66/16/1984Tobacco Bxtziqewd25/16/1984Adult BMI Affjotlep18/16/1990DTaP,Tdap and Td Vaccines (1 - Tdap)1991Zoster (Shingles) Vaccine (1 of 2)2022Influenza Vaccine 03/16/2025 Medical Devices Not on file
--- OUTSIDE RECORDS SUMMARY | 2025-05-27 13:28 | XMS_ITS | Clinical Summary ---
Author Organization [facility] Address [address] [place] [address] Phone Care Team Providers Care Service Manager Name Role Phone Bam Mcfarland MD Primary Care Provider [phone] Social History Tobacco UseTypesPacks/DayYears UsedDateSmoking Tobacco: Never AssessedSex and Gender InformationValueDate RecordedSex Assigned at BirthNot on fileLegal Sex Male06/09/2022 3:12 PM ESTGender IdentityNot on fileSexual OrientationNot on file Plan of Treatment Not on file Care Teams Team MemberRelationshipSpecialtyStart DateEnd Date Bam Mcfarland MD [address] [facility] [place] [address] PCP - [facility]11/21/18
--- OUTSIDE RECORDS SUMMARY | 2025-05-27 13:39 | XMS_ITS | CCD ---
Author Organization [facility] Care Team Providers Care Special Makeup Fx Artist Instructor Name Role Phone SUSAN PIERRE Unavailable Unavailable GABBY KUL B Unavailable Unavailable PROVIDER, UNKNOWN Attending Unavailable PROVIDER, UNKNOWN Admitting Unavailable FAWWAD, STONE Primary Care Physician [phone] Terri Brito Unavailable Unavailable ERICKSON Lopez, DR [...] Unavailabl e LISA, DR JUNITO Galvan Consulting UnavailSHANE Duke Admitting Unavailable SHANE NATH Attending Unavailable FAWWAD, STONE H Primary Care Unavailable SHANE NATH Consulting Unavailable SHAIKH SILVA Attending Unavailable SHAIKH SILVA Attending Unavailable MARIBEL, MS. ASHANTI ELIZABETH Primary Care P hysician Horace Rollins MD Primary Care Provider Maribel MILKER MACHINE, Ashanti Unavailable AMITA FERNANDEZ Attending Unavailable SHAIKH SILVA Primary Care Unavailable AMITA FERNANDEZ Attending Unavailable MARIBEL, ASHANTI Primary Care UnavailAMITA Ring Attending Unavailable MARIBEL, ASHANTI Primary Care UnavailHorace Telles MD Primary Care Provider Unavailable Primary Care Provider Unavailmaite López MILKER MACHINE, Ashanti Unavailable Charlene LOMBARDI DEVELOPER, Lisseth Unavailable Charlene LOMBARDI DEVELOPER, Lisseth Unavailable [phone] Bam Mcfarland MD Primary Care Provider Maddi FREY, Katie Pride Attending Provider [phone] Kota Pozo MD Attending Provider Meredith DOLori Primary Care Provider [phone] Meredith DOLori Attending Provider [phone] Horace Rollins MD Primary Care Provider Shaikh Silva MD Unavailable ASHANTI LÓPEZ Attending UnavailHORACE Telles Attending Unavailable CHUCKIE BROWN Attending Unavailable HORACE ROLLINS Attending Unavailable ZARIA XIE Attending Unavailable ASHNATI LÓPEZ Attending UnavailANTHONY Prasad Attending Unavailable ZARIA XIE Attending Unavailable ASHANTI LÓPEZ Referring UnavailKota Boss Attending Unavailab Kota Cox Admitting Unavailab Bam Chin Primary Care Unavailable Shira FREY, Primary Care Provider Horace Rollins MD Primary Care Provider [phone] UnallocatHenrik stevenson MD Provider Primary Care Provi chandan Shira FREY, Unavailable Bam Mcfarland MD Primary Care Provider Katie Linda MD Attending Provider [phone] Meredith DO Lori Primary Care Provider [phone] Meredith DOLori Attending Provider [phone] Sánchez FREY, Kota Attending Provider [phone] Allergies Allergy ClassificationReported Allergen(s)Allergy TypeDate of OnsetReaction(s) Facility (20 sources)metFORMIN; Translations: [metformin]Drug Sihbzqg45-59-0353Fphqlmd (qualifier value), GI intoleranceExecutive [facility]rology of [facility] (20 sources)AmitriptylineDrug Lwewzkr98-11-2364UonhjqxshcwxBGYQ [facility] (3 sources)Naproxen; Translations: [naproxen]Drug Dfwfjxg94-04-8199MgvduwxW[facility] (3 sources)Shellfish; Translations: [shellfish derived]Allergy to substance 30-42-8760[facility]yxf[facility] (1 source)AmitriptylineDrug Bnrxjds58-97-4567JfzaqveenSum[facility] (1 source)metFORMINDrug Mfpklzi90-38-3802ItluuyjezSumma Health Repository Medications Current Medications MedicationDrug Class(es)DatesSig (Normalized)Sig (Original)albuterol 0.83 mg/ml inhalation solution (20 sources)beta2-Adrenergic AgonistStart: 99-61-5075kzeb 2.5 mg by inhalation every four hours as neededAlbuterol Sulfate 2.5 mg /3 mL (0.083 %) solution for nebulization Active 2.5 MG INHALATION Every 4hours as needed April 14, 2025 11:00pm Complies with drug therapy End: 76-82-1612xzsd 2 puff(s) by inhalation every four hours for wheezing albuterol HFA 90 mcg/act inhaler Inhale 2 puffs every 4 (four) hours if needed for wheezing 08/19/2024 Discontinuedalbuterol CFC free 90 mcg/inh Inh Aer w/Adapt 8 gm (Ventolin) (5 sources)Start: 99-55-7900tyck 2 puff(s) by inhalation four times daily albuterol CFC free 90 mcg/inh Inh Aer w/Adapt 8 gm (Ventolin) 2 puff(s), Inhalation, QID, Refill(s)0 Start Date: 10/16/11 Status: OrderedStart: 10-16-2011 take 2 puff(s) by inhalation four times dailyalbuterol CFC free 90 mcg/inh Inh Aer w/Adapt 8 gm (Ventolin) 2 puff(s), Inhalation, QID, Refill(s)0, 0, Print Requisition Start Date: 10/16/11 Status: OrderedBlood Glucose Monitoring Suppl ([employer] Blood Glucose Meter) w/Device kit (11 sources)Start: 70-40-9598Ofakn Glucose Monitoring Suppl ([employer] Blood Glucose Meter) w/Device kit Indications: Type II diabetesmellitus with complication (HCC) USE TWICE A DAY TO TEST BLOOD SUGARS 1 kit 1 12/10/2024 Activecariprazine 6 mg oral capsule (4 sources)Atypical AntipsychoticStart: 74-69-8880bgnv 1 capsule by mouth once dailyCariprazine (Vraylar) 6 mg capsule Active 6 MG PO Daily April 09, 2025 11:00pm Complies with drug therapyStart: 53-72-7136sqcg 1 capsule by mouth once dailyVraylar 3 mg oral capsule 3 mg = 1 cap(s), Oral, Daily, Refills(s) 0 Start Date: 04/03/24 Status: OrderedchlorproMAZINE (2 sources)PhenothiazineStart: 50-61-0225Pxmnnuyrj 25 mg Tab 50mg tid, Refills(s) 0 Start Date: 09/23/10 Status: OrderedContinuous Glucose Tassel Maker (FreeStyle Tenzin 2 [place]) device (1 source)Start: 07-28-2024 End: 17-57-9313Dfvtisiple Glucose Tassel Maker (FreeStyle Tenzin 2 [place]) device Indications: Type II diabetes mellitus with complication (CMS/HCC) 1 Device 1 (one) time for 1 dose 1 each 07/28/2024 07/28/2024 ActiveContinuous Glucose Sensor (FreeStyle Tenzin 2 Sensor) [facility] [place]5 sources)Start: 07-28-2024 End: 32-45-4903Tsujlylokt Glucose Sensor (FreeStyle Tenzin 2 Sensor) [facility] Indications: Type II diabetes mellitus with complication (CMS/HCC) 1 Bar every 14 (fourteen) days 6 each 1 07/28/2024 10/26/2024 Activecyclobenzaprine hydrochloride 10 mg oral tablet (7 sources)Muscle RelaxantStart: 11-75-4675eeyd 1 tablet by mouth three times daily as needed for muscle spasmscyclobenzaprine (Flexeril) 10 MG tablet Indications: Neck pain Take 1 tablet (10 mg) by mouth 3 (three) times a day as needed for muscle spasms 30 tablet 2 01/19/2025 Activedapagliflozin 5 mg oral tablet (11 sources)Sodium-Glucose Cotransporter 2 InhibitorStart: 07-02-2024 End: 06-54-8586kyza 1 tablet by mouth once dailydapagliflozin (Farxiga) 5 MG Indications: Type 2 diabetes mellitus without complication, with long-term current use of insulin ([facility]) Take 1 tablet (5 mg) by mouth Daily 30 tablet 11 07/02/2024 08/19/2024 Wjonxwgshcfj02 hr dilTIAZem hydrochloride 120 mg extended release oral capsule (2 sources)Calcium Channel BlockerStart: 67-52-1243Zsyevavn CD 120 mg/24 hours Cap-ER 120 mg = 1 cap(s), Oral, Daily, # 30 cap(s), Refills(s) 1, , Print Requisition Start Date: 08/22/11 Status: OrderedStart: 02-71-2310Ayjrstml CD 120 mg/24 hours Cap-ER 120 mg = 1 cap(s), Oral, Daily, # 30 cap(s), Refills(s) 1, , Print Requisition Start Date: 08/22/11 Status: Orderedfluconazole 100 mg oral tablet (10 sources)Azole AntifungalStart: 95-69-9341qdxinjpnloh (Diflucan) 100 MG tablet Indications: Other infective chronic otitis externa of both ears 2 pills day one and then one pill daily for 13 days 15 tablet 01/19/2025 ActiveglipiZIDE 10 mg oral tablet (20 sources)SulfonylureaStart: 56-10-6370liju 1 tablet by mouth once daily Glipizide 10 mg tablet Active 10 MG PO Daily April 09, 2025 11:00pm Complies with drug therapyStart: 07-28-2024 End: 86-75-4526udky 1 tablet by mouth every twenty-four hours in the morning glipiZIDE XL (Glucotrol XL) 10 MG 24 hr tablet Indications: Type II diabetes mellitus with complication (HCC) TAKE 1 TABLET BY MOUTH IN THE MORNING AND 1 TABLET BEFORE BEDTIME. DO NOT CRUSH, CHEW, ORSPLIT. 180 tablet 01/05/2025 Active Start: 04-08-2024 End: 30-88-2197ngcg 1 tablet by mouth in the morningglipiZIDE (Glucotrol) 5 MG tablet Indications: Type II diabetes mellitus with complication (CMS/HCC) Take 1 tablet (5 mg) by mouth in the morning and 1 tablet (5 mg) in the evening. Take before meals. 60 tablet 2 07/02/2024 07/28/2024 Discontinued (Dose adjustment) Start: 98-41-7679hftd 1 tablet by mouth once dailyglipiZIDE 5 mg ER Tab 5 mg = 1 tab(s), Oral, Daily Start Date: 11/15/21 Status: Orderedhaloperidol 5 mg oral tablet (6 sources)Typical AntipsychoticStart: 94-34-5175gedi 1 tablet by mouth twice dailyhaloperidol 5 mg Tab 5 mg = 1 tab(s), Oral, BID, # 60 tab(s), Refills(s) 0, Pharmacy: [facility] Start Date: 04/11/21 Status: OrderedStart: 03-21-2017 End: 00-15-5936Xfkpneyccuh Decanoate 50 mg/mL Solution Discontinued 50 MG IM Q28D April 11, 2017 11:00pm November 09, 2018 12:25pmhydrocortisone acetate 25 mg rectal suppository (5 sources)CorticosteroidStart: 04-08-2024 End: 57-56-2808ukhuqysyosoapz (Anusol-HC) 25 MG suppository Indications: Anal pruritus Insert 1 suppository (25 mg) into the rectum in the morning and 1 suppository (25 mg) before bedtime. Do all this for 10 days. 12 suppository 04/08/2024 04/18/2024 Activehydrocortisone 10 mg/ml / neomycin 3.5 mg/ml / polymyxin b 30326 unt/ml otic suspension (1 source)Aminoglycoside Antibacterial, Polymyxin-class Antibacterial, CorticosteroidStart: 01-19-2025 End: 64-23-6105xxqbogwl-polymyxin-hydrocortisone (Cortisporin) 3.5-76529-5 otic suspension Indications: Other infective chronic otitis externa of both ears Administer 4 drops into each ear in the morning and 4 drops in the evening and 4 drops before bedtime. Do all this for 10 days. 10 mL 01/19/2025 01/29/2025 Act iveibuprofen 800 mg oral tablet (1 source)Nonsteroidal Anti-inflammatory DrugStart: 66-92-9153nggg 1 tablet by mouth three times daily as needed for painIbuprofen 800 mg tablet Active 800 MG PO Three times daily as needed for pain 30 10 May 12:00am Complies with drug therapy3 ml insulin glargine 100 unt/ml pen injector (20 sources)Insulin AnalogStart: 81-07-6330Vvgbjsk Glargine (Lantus Solostar U- 100 Insulin) 100 unit/mL (3 mL) insulin pen Active 45 UNIT SUBCUT Every evening April 15, 2025 7:05am Complies with drug therapyStart: 04-10-2025 End: 59-22-9037Thxlpdl Glargine (Lantus Solostar U-100 Insulin) 100 unit/mL (3 mL) insulin pen Discontinued 40 UNIT SUBCUT Every evening April 09, 2025 11:00pm April 15, 2025 7:09amStart: 11-07-2024 End: 79-46-9782cmrsqvd glargine (Lantus SoloStar) 100 UNIT/ML pen Indications: Type II diabetes mellitus with complication (HCC) INJECT 45 UNITS UNDER THE SKIN AT BEDTIME 45 mL 1 02/03/2025 05/04/2025 ActiveStart: 07-28-2024 End: 61-77-6653ivrccdw glargine (Lantus SoloStar) 100 UNIT/ML pen Indications: Type II diabetes mellitus with complication (CMS/HCC) Inject 40 Units under the skin at bedtime 36 mL 07/28/2024 10/26/2024 ActiveStart: 07-02-2024 End: 93-12-3971ktisbpz glargine (Lantus SoloStar) 100 UNIT/ML pen Indications: Type II diabetes mellitus with complication (CMS/HCC) Inject 30 Units under the skin at bedtime 9 mL 11 07/03/2024 07/28/2024 Discontinued (Reorder)Start: 06-05-2024 End: 77-57-0208gwtqczz glargine (Lantus SoloStar) 100 UNIT/ML pen Indications: Type II diabetes mellitus with complication (CMS/HCC) Inject 25 Units under the skin at bedtime 7.5 mL 11 06/05/2024 07/02/2024 Discontinued (Dose adjustment) Start: 75-86-8964Ywxoci Solostar Pen 100 units/mL subcutaneous solution 15 unit(s), SubCutaneous, Once a day (at bedtime) Start Date: 04/29/24 Status: OrderedStart: 04-23-2024 End: 36-27-9959imprutj glargine (Lantus SoloStar) 100 UNIT/ML pen Indications: Type II diabetes mellitus with complication (CMS/HCC) Inject 20 Units under the skin at bedtime 3 mL 5 04/23/2024 06/05/2024 Discontinued (Dose adjustment) Start: 04-16-2024 End: 90-25-9195amstnkn glargine (Lantus SoloStar) 100 UNIT/ML pen Indications: Type II diabetes mellitus with complication (CMS/HCC) Inject 15 Units under the skin at bedtime 3 mL 5 04/16/2024 04/23/2024 Discontinued (Dose adjustment) Start: 54-98-7865Kfuipo insulin See Instructions Start Date: 11/15/21 Status: Orderedisopropyl alcohol 0.7 ml/ml medicated pad (20 sources)Alcohol Swabs (Alcohol Pads) 70 % pads 1 Pad every 12 (twelve) hours ActiveLORazepam 0.5 mg oral tablet (2 sources)BenzodiazepineStart: 24-30-6329vzai 1 tablet by mouth three times daily as needed for anxietyAtivan 0.5 mg oral tablet = 1 tab(s), Oral, TID, PRN PRN for anxiety, tab(s), Refills(s) 0 Start Date: 09/23/10 Status: Ordered ofloxacin 3 mg/ml otic solution (2 sources)Quinolone AntimicrobialStart: 04-08-2024 End: 81-47-4441niuqnzymz (Floxin) 0.3 % otic solution Indications: Acute swimmer's ear of both sides Administer 10drops into affected ear(s) Daily for 7 days 5 mL 04/08/2024 04/15/2024 ActiveOLANZapine 10 mg oral tablet (20 sources)Atypical AntipsychoticStart: 04-03-2024 End: 64-51-0071yuvjtwvcvx 10 mg Tab See Instructions, Refills(s) 0 Start Date: 04/03/24 Status: OrderedStart: 75-79-1057xceizfbojd 20 mg oral tablet Refills(s) 0 Start Date: 11/15/22 Status: OrderedPARoxetine hydrochloride 30 mg oral tablet (2 sources)Serotonin Reuptake InhibitorStart: 57-17-4354vckl 1 tablet by mouth once dailyparoxetine 30 mg Tab 30 mg = 1 tab(s), Oral, Daily, Refills(s) 0 Start Date: 12/08/11 Status: OrderedStart: 94-38-0054etqm 1 tablet by mouth once daily paroxetine 30 mg Tab 30 mg = 1 tab(s), Oral, Daily, Refills(s) 0 Start Date: 12/08/11 Status: Orderedpioglitazone 45 mg oral tablet (20 sources)Peroxisome Proliferator Receptor alpha Agonist, Peroxisome Proliferator Receptor gamma Agonist, ThiazolidinedioneStart: 07-28-2024 End: 59-56-2992fbeg 1 tablet by mouth once dailyPioglitazone (Actos) 45 mg tablet Active 45 MG PO Daily April 14, 2025 11:00pm Complies with drug therapyStart: 05-29-2024 End: 10-17-8598ajzr 1 tablet by mouth once dailypioglitazone (Actos) 15 MG tablet Indications: Type II diabetes mellitus with complication (CMS/HCC) Take 1 tablet (15 mg) by mouth Daily 30 tablet 05/29/2024 07/28/2024 Discontinued (Dose adjustment)predniSONE 50 mg oral tablet (2 sources)Start: 01-19-2025 End: 68-43-0463iyit 1 tablet by mouth once dailypredniSONE (Deltasone) 50 MG tablet Indications: Neck pain Take 1 tablet (50 mg) by mouth Daily for6 days 6 tablet 01/19/2025 01/25/2025 ActiveQUEtiapine 100 mg oral tablet (2 sources)Atypical AntipsychoticStart: 67-15-8039opqu 1 tablet by mouth once dailySEROquel 100 mg Tab 100 mg = 1 tab(s), Oral, Daily Start Date: 11/15/21 Status: Orderedtadalafil 20 mg oral tablet (1 source)Phosphodiesterase 5 InhibitorStart: 96-68-8399pwkn 1 tablet by mouth once dailyCialis 20 mg Tab 20 mg = 1 tab(s), Oral, Daily, As directed for erectile dysfunction., # 30 tab(s),Refills(s) 3, Pharmacy: [facility], 170, cm, 11/15/21 9:38:00 EDT, Height/Length Dosing,116.6, kg, 11/15/21 9:38:00 EDT, Weight Dosing Start Date: 11/15/21 Status: Ykajqev82 actuat testosterone 20.25 mg/actuat topical gel (2 sources)AndrogenStart: 92-25-0315FyeqhDjy Pump 20.25 mg/1.25 g (1.62%) transdermal gel = 2 pump, Topical, qAM, # 75 gram, Refills(s)1, Pharmacy: [facility], 170, cm, 07/05/21 10:18:00 EST, Height/Length Dosing, 170, kg, 08/23/21 9:37:00 EST, Weight Dosing Start Date: 08/23/21 Status: Ordered vardenafil 20 mg oral tablet (1 source)Phosphodiesterase 5 InhibitorStart: 63-56-6932ublr 1 tablet by mouth once daily as neededLevitra 20 mg Tab 20 mg = 1 tab(s), Oral, Daily, PRN for erectile dysfunction, # 30 tab(s), Refills(s) 1, Pharmacy: [facility], 170, cm, 01/17/22 10:42:00 EDT, Height/Length Dosing, 116.6,kg, 01/17/22 10:42:00 EDT, Weight Dosing Start Date: 01/17/22 Status: Ordered Xanomeline-Trospium (2 sources)Start: 72-05-7635ovve 1 capsule by mouth twice dailyXanomeline- Trospium (Cobenfy) 50-20 mg capsule Active 1 CAP PO Twice daily April 14, 2025 11:00pm Complies with drug therapyStart: 06-68-9993mvja 1 capsule by mouth twice dailyXanomeline-Trospium (Cobenfy) 50-20 mg capsule Active 1 CAP PO Twice daily April 15, 2025 12:00am Complies with drug therapyXanomeline-Trospium Chloride (Cobenfy) 50-20 MG capsule (20 sources)Xanomeline-Trospium Chloride (Cobenfy) 50-20 MG capsule Take by mouth Activeziprasidone 60 mg oral capsule (4 sources)Atypical AntipsychoticStart: 11-11-2024 End: 61-13-6886lfrq 1 capsule by mouth twice daily at mealtimeziprasidone (Geodon) 60 MG capsule TAKE 1 CAPSULE BY MOUTH TWICE A DAY WITH FOOD 11/11/2024 12/01/2024 DiscontinuedStart: 10-29-2024 End: 96-16-9880pput 1 capsule by mouth twice daily at mealtimeziprasidone (Geodon) 20 MG capsule TAKE 1 CAPSULE BY MOUTH TWICE A DAY WITH FOOD 10/29/2024 12/01/2024 Discontinued Completed/Discontinued Medications MedicationDrug Class(es)DatesSig (Normalized)Sig (Original)acetaminophen 325 mg / oxyCODONE hydrochloride 5 mg oral tablet (2 sources)Opioid AgonistStart: 67-30-0432Tudxzxbs 325 mg-5 mg Tab 1 tab(s), Oral, q6hr PRN as needed for pain, 20 tab(s), Refill(s) 0, 0, Print Requisition Start Date: 12/08/11 Status: Orderedcelecoxib 100 mg oral capsule (1 source)Nonsteroidal Anti-inflammatory DrugStart: 04-16-2025 End: 85-72-4214tajo 1 capsule by mouth twice dailyCelecoxib (Celebrex) 100 mg capsule Discontinued 100 MG PO Twice daily 20 10 0 April 15, 2025 11:00pm May 19, 2025 2:40pmciprofloxacin 3 mg/ml / dexamethasone 1 mg/ml otic suspension (3 sources)Corticosteroid, Quinolone AntimicrobialStart: 01-19-2025 End: 26-17-4454yiwwmnscauctx-dexAMETHasone (CiproDEX) otic suspension Indications: Other infective chronic otitis externa of both ears Administer 4 drops into each ear in the morning and 4 drops in the evening and 4 drops before bedtime. Do all this for 10 days. 7.5 mL 01/19/2025 01/19/2025 Discontinued clindamycin 150 mg oral capsule (2 sources)Lincosamide AntibacterialStart: 04-16-2025 End: 06-46-0745lghv 1 capsule by mouth three times dailyClindamycin Hcl 150 mg capsule Discontinued 150 MG PO Three times daily 21 7 0 April 28, 2025 8: 58am May 19, 2025 2:30pmclonazePAM 0.5 mg oral tablet (8 sources)BenzodiazepineStart: 04-12-2017 End: 14-71-9172lrui 1 tablet by mouth twice daily as needed for anxiety Clonazepam 0.5 mg Tablet Discontinued 0.5 MG PO Twice daily as needed for Anxiety 0 0 April 15, 2017 11:00pm November 09, 2018 12:25pmStart: 03-21-2017 End: 88-73-6689qbzd 0.25 mg by mouth once daily in the eveningClonazepam 0.5 mg Tablet Discontinued 0.25 MG PO Every evening 4 0 March 20, 2017 11:00pm April 13, 2017 9:55amempagliflozin 10 mg oral tablet (4 sources)Sodium-Glucose Cotransporter 2 InhibitorStart: 04-07-2024 End: 60-31-8488ttho 1 tablet by mouth once dailyempagliflozin (Jardiance) 10 MG Indications: Type II diabetes mellitus with complication (CMS/HCC) Take 1 tablet (10 mg) by mouth Daily 30 tablet 11 04/07/2024 04/08/2024 Discontinued (Cost of medication)Ipratropium (3 sources)AnticholinergicStart: 14-98-3266pkbv 2.5 mL by inhalation every four hours as needed for dyspneaipratropium 0.02% inhalation solution 500 microgram = 2.5 mL, NEB, q4hr, PRN PRN Dyspnea, # 150 mL,Refills(s) 0, 0, Print Requisition Start Date: 08/22/11 Status: OrderedStart: 39-79-0124uryz 2.5 mL by inhalation every four hours as needed for dyspneaipratropium 0.02% inhalation solution 500 microgram = 2.5 mL, NEB, q4hr, PRN PRN Dyspnea, # 150 mL,Refills(s) 0, 0, Print Requisition Start Date: 08/22/11 Status: OrderedlevoFLOXacin 250 mg oral tablet (6 sources)Quinolone AntimicrobialStart: 01-19-2025 End: 49-52-0836hwny 2 tablets by mouth once dailylevoFLOXacin (Levaquin) 250 MG tablet Indications: Other infective chronic otitis externa of both ears Take 2 tablets (500 mg) by mouth Daily for 10 days 20 tablet 01/19/2025 01/19/2025 DiscontinuedStart: 04-03-2024 End: 40-57-1062atku 1 tablet by mouth every twenty-four hoursLevaquin 500 mg Tab 500 mg = 1 tab(s), Oral, q24hr, X 14 day(s), # 14 tab(s), Refills(s) 0, Pharmacy : [facility]/pharmacy #[id number], 170, cm, 04/03/24 10:50:00 EDT, Height/Length Dosing, 120, kg, 04/03/24 10:50:00 EDT, Weight Dosing Start Date: 04/03/24 Stop Date: 04/17/24 Status: Orderedlurasidone hydrochloride 40 mg oral tablet (2 sources)Atypical AntipsychoticStart: 04-16-2017 End: 63-13-3980xrvz 1 tablet by mouth once dailyLurasidone (Latuda) 40 mg Tablet Discontinued 40 MG PO Daily with supper 15 0 April 15, 2017 11:00pm November 09, 2018 12:25pmnaproxen 500 mg oral tablet (2 sources)Nonsteroidal Anti-inflammatory DrugStart: 68-08-7764nqay 1 tablet by mouth twice dailynaproxen 500 mg Tab 500 mg = 1 tab(s), Oral, BID, Take one tab by mouth two times a day, # 14 tab(s), Refills(s) 0, 0, Print Requisition Start Date: 10/16/11 Status: OrderedSemaglutide (2 sources)Start: 04-15-2025 End: 70-21-1466Ybshfjvadux (Ozempic) 0.25 mg or 0.5 mg (2 mg/3 mL) pen injector Discontinued 0.5 MG SUBCUT every week April 14, 2025 11:00pm April 16, 2025 8:43am for 4 weeksStart: 04-15-2025 End: 42-47-0754Wvenkdadjay (Ozempic) 0.25 mg or 0.5 mg (2 mg/3 mL) pen injector Discontinued 0.5 MG SUBCUT every week April 15, 2025 12:00am April 16, 2025 9:43am for 4 weeksSemaglutide,0.25 or 0.5MG/DOS, (Ozempic, 0.25 or 0.5 MG/DOSE,) 2 MG/3ML solution pen-injector (14 sources)Start: 07-28-2024 End: 37-94-6036Vxaybwhujwh,0.25 or 0.5MG/DOS, (Ozempic, 0.25 or 0.5 MG/DOSE,) 2 MG/3ML solution pen-injector Indications: Type II diabetes mellitus with complication (HCC) Inject 0.5 mg under the skin every 7 (seven) days 6 mL 1 07/28/2024 01/19/2025 DiscontinuedStart: 30-13-7261Wjnnaijolnu,0.25 or 0.5MG/DOS, (Ozempic, 0.25 or 0.5 MG/DOSE,) 2 MG/3ML solution pen-injector Indica tions: Type II diabetes mellitus with complication (HCC) Inject 0.5 mg under the skin every 7 (seven) days 6 mL 1 07/28/2024 ActiveStart: 07-28-2024 Semaglutide,0.25 or 0.5MG/DOS, (Ozempic, 0.25 or 0.5 MG/DOSE,) 2 MG/3ML solution pen-injector Indications: Type II diabetes mellitus with complication (CMS/HCC) Inject 0.5 mg under the skin every 7 (seven) days 6 mL 1 07/28/2024 ActiveStart: 07-28-2024 End: 40-26-6207Gezpgytnynw,0.25 or 0.5MG/DOS, (Ozempic, 0.25 or 0.5 MG/DOSE,) 2 MG/3ML solution pen-injector Indications: Type II diabetes mellitus with complication (CMS/HCC) Inject 0.5 mg under the skin every 7 (seven) days 6 mL 1 07/28/2024 10/26/2024 ActivetraZODone hydrochloride 50 mg oral tablet (2 sources)Serotonin Reuptake InhibitorStart: 04-16-2017 End: 34-27-9425babv 1 tablet by mouth once daily at bedtimeTrazodone 50 mg Tablet Discontinued 50 MG PO Daily at bedtime 15 0 April 15, 2017 11:00pm November 09, 2018 12:25pm Problems Active Problems Problem ClassificationProblemDateDocumented DateEpisodic/ChronicCardiac dysrhythmias (2 sources)Palpitations; Translations: [Palpitations]38-66-0880UpzvlzygRkdqgmf obstructive pulmonary disease and bronchiectasis (20 sources)Chronic obstructive lung disease; Translations: [Chronic obstructive pulmonary disease, unspecified]Onset: [id number] mellitus with complications (20 sources)Type 2 diabetes mellitus; Translations: [Type 2 diabetes mellitus with unspecified complications]Onset: [id number] mellitus without complication (20 sources)Type 2 diabetes mellitus without complications; Translations: [Type 2 diabetes mellitus without complication]Onset: 03-14-2022 Resolved: 44-14-0824VamzhroIuqlwshdy of lipid metabolism (20 sources)Hyperlipidemia; Translations: [Hyperlipidemia, unspecified]Onset: 981023-34-1936DpfjiucOxvyeckhh of teeth and jaw (4 sources)Dental caries; Translations: [Dental caries, unspecified]04-16-2025 EpisodicGenitourinary symptoms and ill-defined conditions (10 sources)Nocturia; Translations: [Nocturia]Onset: 85-48-0422YfdsjbpsHido disorders (6 sources)Depressive disorder; Translations: [Bipolar disorder, unspecified] Onset: 928905-39-4662PmekgliFrur disorders (2 sources)Major depressive disorder, single episode, unspecified; Translations: [Major depressive disorder, single episode, unspecified]Onset: 95-40-4343Kggcqgd (3 sources)Pain in toe; Translations: [Tinea unguium]62-55-0485Gabixvpk Nutritional deficiencies (3 sources)Vitamin D deficiency; Translations: [Vitamin D deficiency, unspecified]13-56-8530YrsnhjcLiaer aftercare (3 sources)Long-term current use of insulin; 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]38-30-8591LvwfcgwdQvhlb connective tissue disease (2 sources)Cramp; Translations: [Cramp and spasm]11-80-7660MmurksclPzitk diseases of veins and lymphatics (3 sources)Vascular insufficiency; Translations: [Venous insufficiency (chronic) (peripheral)]94-93-9402EksfvbacCwkqy ear and sense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 Mtz mean volume (Bld) [Entitic vol]9.6 fLNormal9.5-13.5The [facility] on above:Performed By: #### CBC #### [facility] [address] [address] [address] Kenna ThomasPLT251 103/jmAirbuj955-339Fey [facility] on above: Performed By: #### CBC #### [facility] [address] [place] [address] Dr. Kenna ThomasRBC4.64 106/ulCritically low4.70-6.10The [facility] HospitalComselect [facility] on above:Performed By: #### CBC #### [facility] [address] [place] [address] Dr. Kenna ThomasWBC7.9 103/ulNormal4.0-11.0The [facility] on above: Performed By: #### CBC #### [facility] [address] [place] [address] Dr. Kenna ThomasGLYCOHEMOGLOBIN A1Con [id number] RECOMMENDATIONSEE BELOWNormal The [facility] on above:Result Comment: ADA RECOMMENDED LIMIT 4.0 - 6.0 ADA THERAPEUTIC TARGET < 7.0 ACTION SUGGESTED > 7.0Performed By: #### GLUC, LIPID #### [facility] [address] [place] [address] Dr. Kenna ThomasGlucose [Mass/Vol]171 mg/dLNormalThe [facility] on above:Performed By: #### GLUC, LIPID #### [facility] [address] [place] [address] Dr. Kenna ThomasHbA1c (Bld) [Mass fraction]7.6 %Critically high4.5-6.2The [facility] on above:Performed By: #### GLUC, LIPID #### [facility] [address] [place] [address] Dr. Kenna ThomasPRODeven 14(COMP METB)on 98-81-7612Kxxgyyz [Mass/Vol]3.4 g/dLNormal 3.4-5.0The [facility] on above:Performed By: #### CMP #### [facility] [address] [place] [address] Dr. Kenna ThomasAlbumin/Globulin [Mass ratio]0.7 {ratio}NormalThe [facility] HospitalComment on above:Performed By: #### CMP #### [facility] [address] [place] [address] Dr. Kenna LanzaP [Catalytic activity/Vol]166 U/LCritically zrqu66-659Mnm [facility] HospitalComment on above:Performed By: #### CMP #### [facility] [address] [place] [address] Dr. Kenna LanzaT [Catalytic activity/Vol]46 U/SQgfxqk22-71Wea [facility] HospitalComment on above:Performed By: #### CMP #### [facility] [address] [place] [address] Dr. Kenna Cavanaughon gap [Moles/Vol]12.2 mmol/LNormalThe [facility] Comment on above:Performed By: #### CMP #### [facility] [address] [place] [address] Dr. Kenna ThomasAST [Catalytic activity/Vol]33 U/GKlasyd79-38Agp [facility] HospitalComment on above:Performed By: #### CMP #### [facility] [address] [place] [address] Dr. Kenna ThomasBilirubin [Mass/Vol]0.3 mg/dLNormal0.2-1.0The [facility] Comment on above:Performed By: #### CMP #### [facility] [address] [place] [address] Dr. Kenna ThomasCalcium [Mass/Vol]9.6 mg/dLNormal8.5-10.1The [facility] Comment on above:Performed By: #### CMP #### [facility] [address] [place] [address] Dr. Kenna ThomasChloride [Moles/Vol]99 mmol/UIbkvhz17-432Nvl [facility] Comment on above:Performed By: #### CMP #### [facility] [address] [place] [address] Dr. Kenna ThomasCO2 [Moles/Vol]30.4 mmol/TXmwunq20.0-32.0The [facility] Comment on above:Performed By: #### CMP #### [facility] [address] [place] [address] Dr. Kenna ThomasCreatinine [Mass/Vol]1.01 mg/dLNormal0.70-1.30The [facility] HospitalComment on above:Performed By: #### CMP #### [facility] [address] [address] [address] Kenna WebbGFR-AF ECUADOREAN>60Normal>=60The [facility] HospitalComment on above:Performed By: #### CMP #### [facility] [address] [place] [address] Dr. Kenna WebbGFR-NON AF ECUADOREAN>60Normal>=60The [facility] HospitalComment on above:Performed By: #### CMP #### [facility] [address] [place] [address] Dr. Kenna ThomasGlobulin (S) [Mass/Vol]5.2 g/dLNormalThe [facility] HospitalComment on above:Performed By: #### CMP #### [facility] [address] [place] [address] Dr. Kenna ThomasGlucose [Mass/Vol]208 mg/dLCritically muii42-420Xjq [facility] HospitalComment on above:Performed By: #### CMP #### [facility] [address] [place] [address] Dr. Kenna ThomasPotassium [Moles/Vol]4.6 mmol/LNormal3.5-5.1The [facility] Comment on above:Performed By: #### CMP #### [facility] [address] [place] [address] Dr. Kenna ThomasProtein [Mass/Vol]8.6 g/dLCritically high6.4-8.2The [facility] HospitalComment on above:Performed By: #### CMP #### [facility] [address] [place] [address] Dr. Kenna ThomasSodium [Moles/Vol]137 mmol/ROywcft843-888Ltg [facility] Comment on above:Performed By: #### CMP #### [facility] [address] [address] [address] Kenna Pineda nitrogen [Mass/Vol]7.0 mg/dLNormal7.0-18.0The [facility] HospitalComment on above:Performed By: #### CMP #### [facility] [address] [place] [address] Dr. Kenna ThomasUrea nitrogen/Creatinine [Mass ratio]6.9 mg/mgNormMercy Health Kings Mills HospitalComment on above:Performed By: #### CMP #### [facility] [address] [place] [address] Dr. Kenna Dumont B12 AND FOLATEon 75-80-1946Juypnpkgq (Vitamin B12) [Mass/Vol] 841.0 pg/dZTvyizh016.0-986.0The [facility] HospitalComment on above:Performed By: #### B12FOL #### [facility] [address] [place] [address] Dr. Kenna ThomasFOLATE17.30 ng/mLNormal8.60-58.90The [facility] HospitalComment on above:Performed By: #### B12FOL #### [facility] [address] [place] [address] Dr. Kenna ThomasGLYCOHEMOGLOBIN A1Con 16-14-1949GKG RECOMMENDATIONSEE BELOWNormal The [facility] HospitalComment on above:Result Comment: ADA RECOMMENDED LIMIT 4.0 - 6.0 ADA THERAPEUTIC TARGET < 7.0 ACTION SUGGESTED > 7.0Performed By: #### A1C #### [facility] [address] [place] [address] Dr. Kenna ThomasGlucose [Mass/Vol]148 mg/dLNoPremier Health Miami Valley Hospital SouthComment on above:Performed By: #### A1C #### [facility] [address] [place] [address] Dr. Kenna ThomasHbA1c (Bld) [Mass fraction]6.8 %Critically high4.5-6.2The [facility] HospitalComment on above:Performed By: #### A1C #### [facility] [address] [place] [address] Dr. Kenna Lee AUTO DIFFon [id number] #0.1 103/ulNormal0.0-0.1The [facility] HospitalComment on above:Performed By: #### GLUC, LIPID #### [facility] [address] [place] [address] Dr. Kenna ThomasBasophils/100 WBC (Bld)1.0 %Normal0.2-2.0[facility] Comment on above:Performed By: #### GLUC, LIPID #### [facility] [address] [place] [address] Dr. Kenna Duran #0.5 103/ulNormal0.0-0.7The [facility] HospitalComment on above: Performed By: #### GLUC, LIPID #### [facility] [address] [place] [address] Dr. Kenna Webbosinophils/100 WBC (Bld)4.0 %Normal0.9-7.0The [facility] Comment on above:Performed By: #### GLUC, LIPID #### [facility] [address] [place] [address] Dr. Kenna Webbrythrocyte distribution width (RBC) [Ratio]12.3 %Sqekee11.0-15.[address] [facility] CenterComment on above:Performed By: #### GLUC, LIPID #### [facility] [address] [place] [address] Dr. Kenna ThomasHematocrit (Bld) [Volume fraction]40.5 %Critically low42.0-54.[address] [facility] CenterComment on above:Performed By: #### GLUC, LIPID #### [facility] [address] [place] [address] Dr. Kenna ThomasHemoglobin (Bld) [Mass/Vol]14.4 g/dDPgrjdz31.0-18.0The [facility] HospitalComment on above:Performed By: #### GLUC, LIPID #### [facility] [address] [address] [address] Kenna Hudson #0.05 10e3/ulCritically high0.00-0.03The [facility] Comment on above:Performed By: #### GLUC, LIPID #### [facility] [address] [place] [address] Dr. Kenna Hudson %0.4 %Normal0.0-0.5The [facility] HospitalComment on above: Performed By: #### GLUC, LIPID #### [facility] [address] [place] [address] Dr. Kenna Alba #3.0 103/ulNormal1.2-3.8The [facility] HospitalComment on above:Performed By: #### GLUC, LIPID #### [facility] [address] [place] [address] Dr. Kenna Emhocytes/100 WBC (Bld)24.6 %Sxhpvn80.5-60.0The [facility] HospitalComment on above:Performed By: #### GLUC, LIPID #### [facility] [address] [place] [address] Dr. Kenna BenitezUAL DIFF REQNONormalThe [facility] HospitalComment on above: Performed By: #### GLUC, LIPID #### [facility] [address] [place] [address] Dr. eKnna Poole (RBC) [Entitic mass]34.0 ryXrzvpb05.9-34.0The [facility] HospitalComment on above:Performed By: #### GLUC, LIPID #### [facility] [address] [place] [address] Dr. Kenna Quiñones (RBC) [Mass/Vol]35.6 g/dLCritically high29.9-35.2The [facility] HospitalComment on above:Performed By: #### GLUC, LIPID #### [facility] [address] [place] [address] Dr. Kenna Quiñones (RBC) [Entitic vol]95.7 fLCritically high80.0-94.0The [facility] HospitalComment on above:Performed By: #### GLUC, LIPID #### [facility] [address] [address] [address] Kenna Chua #0.9 103/ulCritically high0.3-0.8The [facility] Comment on above:Performed By: #### GLUC, LIPID #### [facility] [address] [address] [address] Kenna Willocytes/100 WBC (Bld)7.6 %Normal1.7-12.0[facility] Comment on above:Performed By: #### GLUC, LIPID #### [facility] [address] [place] [address] Dr. Kenna Ralph #7.5 103/ulCritically high1.4-6.5The [facility] Comment on above:Performed By: #### GLUC, LIPID #### [facility] [address] [place] [address] Dr. Kenna Matthewsutrophils/100 WBC (Bld)62.4 %Ouklum49.0-75.0The [facility] HospitalComment on above:Performed By: #### GLUC, LIPID #### [facility] [address] [place] [address] Dr. Kenna Arguetalet mean volume (Bld) [Entitic vol]10.5 fLNormal9.5-13.5The [facility] HospitalComment on above:Performed By: #### GLUC, LIPID #### [facility] [address] [place] [address] Dr. Kenna ThomasPLT219 103/zjLnqsay341-230Ncc [facility] HospitalComment on above: Performed By: #### GLUC, LIPID #### [facility] [address] [place] [address] Dr. Kenna ThomasRBC4.23 106/ulCritically low4.70-6.10The [facility] HospitalComment on above:Performed By: #### GLUC, LIPID #### [facility] [address] [place] [address] Dr. Kenna ThomasWBC12.0 103/ulCritically high4.0-11.0The [facility] HospitalComment on above:Performed By: #### GLUC, LIPID #### [facility] [address] [address] [address] Kenna Zaman 14(COMP METB)on 50-27-1118Grwssjd [Mass/Vol]3.2 g/dL Critically low3.4-5.0The [facility] HospitalComment on above:Performed By: #### CMP #### [facility] [address] [address] [address] Kenna ThomasAlbumin/Globulin [Mass ratio]0.8 {ratio}NormalThe [facility] HospitalComment on above:Performed By: #### CMP #### [facility] [address] [place] [address] Dr. Kenna LanzaP [Catalytic activity/Vol]167 U/LCritically ytcw53-390Cyz [facility] HospitalComment on above:Performed By: #### CMP #### [facility] [address] [address] [address] Kenna Livingston [Catalytic activity/Vol]30 U/JRfpqpd76-47Lgt [facility] HospitalComment on above:Performed By: #### CMP #### [facility] [address] [place] [address] Dr. Kenna Rosenberg gap [Moles/Vol]12.0 mmol/LNormalThe [facility] Comment on above:Performed By: #### CMP #### [facility] [address] [address] [address] Kenna ThomasAST [Catalytic activity/Vol]12 U/LCritically obt17-00Wpj [facility] HospitalComment on above:Performed By: #### CMP #### [facility] [address] [address] [address] Kenna ThomasBilirubin [Mass/Vol]0.2 mg/dLNormal0.2-1.0The [facility] Comment on above:Performed By: #### CMP #### [facility] [address] [address] [address] Kenna ThomasCalcium [Mass/Vol]8.2 mg/dLCritically low8.5-10.1The [facility] HospitalComment on above:Performed By: #### CMP #### [facility] [address] [address] [address] Kenna ThomasChloride [Moles/Vol]102 mmol/GFhnglo95-785Whd [facility] Comment on above:Performed By: #### CMP #### [facility] [address] [address] [address] Kenna ThomasCO2 [Moles/Vol]24.3 mmol/OYqgxal93.0-32.0The [facility] Comment on above:Performed By: #### CMP #### [facility] [address] [address] [address] Kenna ThomasCreatinine [Mass/Vol]1.03 mg/dLNormal0.70-1.30The [facility] HospitalComment on above:Performed By: #### CMP #### [facility] [address] [address] [address] Kenna WebbGFR-AF ECUADOREAN>60Normal>=60The [facility] HospitalComment on above:Performed By: #### CMP #### [facility] [address] [address] [address] Kenna Basilio-NON AF ECUADOREAN>60Normal>=60The [facility] HospitalComment on above:Performed By: #### CMP #### [facility] [address] [address] [address] Kenna ThomasGlobulin (S) [Mass/Vol]3.8 g/dLNormalThe [facility] HospitalComment on above:Performed By: #### CMP #### [facility] [address] [address] [address] Kenna ThomasGlucose [Mass/Vol]258 mg/dLCritically mzet54-592Jqx [facility] HospitalComment on above:Performed By: #### CMP #### [facility] [address] [address] [address] Kenna ThomasPotassium [Moles/Vol]3.3 mmol/LCritically low3.5-5.1The [facility] HospitalComment on above:Performed By: #### CMP #### [facility] [address] [place], [place] [address] Dr. Kenna ThomasProtein [Mass/Vol]7.0 g/dLNormal6.4-8.2The [facility] Comment on above:Performed By: #### CMP #### [facility] [address] [place], [place] [address] Dr. Kenna ThomasSodium [Moles/Vol]135 mmol/LCritically ujy205-916Cqm [facility] HospitalComment on above:Performed By: #### CMP #### [facility] [address] [id number] [address] Kenna ThomasUrea nitrogen [Mass/Vol]8.0 mg/dLNormal7.0-18.0The [facility] HospitalComment on above:Performed By: #### CMP #### [facility] [address] [id number] [address] Kenna Pineda nitrogen/Creatinine [Mass ratio]7.8 mg/mgNormalThe [facility] HospitalComment on above:Performed By: #### CMP #### [facility] [address] [id number] [address] Kenna ThomasXR ABD FLAT UP_PA Howie [id number] ABD FLAT UP_PA CHACUTE ABDOMINAL SERIES HISTORY: Abdominal pain with an [...] Electronically authenticated by: PERICO DIAMOND Date: 2022-03-24 01:01NormalThFort [facility] AUTO DIFFon [id number] #0.1 103/ulNormal0.0-0.1The [facility] HospitalComment on above:Performed By: #### GLUC, LIPID #### [facility] [address] [place] [address] Dr. Kenna ThomasBasophils/100 WBC (Bld)1.1 %Normal0.2-2.0[facility] Comment on above:Performed By: #### GLUC, LIPID #### [facility] [address] [place] [address] Dr. Kenna Duran #0.6 103/ulNormal0.0-0.7The [facility] HospitalComment on above: Performed By: #### GLUC, LIPID #### [facility] [address] [place] [address] Dr. Kenna Webbosinophils/100 WBC (Bld)5.3 %Normal0.9-7.0The [facility] Comment on above:Performed By: #### GLUC, LIPID #### [facility] [address] [place] [address] Dr. Kenna Webbrythrocyte distribution width (RBC) [Ratio]12.0 %Uxlxam00.0-15.[address] [facility] CenterComment on above:Performed By: #### GLUC, LIPID #### [facility] [address] [place] [address] Dr. Kenna ThomasHematocrit (Bld) [Volume fraction]41.8 %Critically low42.0-54.0 The [facility] HospitalComment on above:Performed By: #### GLUC, LIPID #### [facility] [address] [place] [address] Dr. Kenna ThomasHemoglobin (Bld) [Mass/Vol]14.7 g/jONcevqn52.0-18.0[facility] CenterComment on above:Performed By: #### GLUC, LIPID #### [facility] [address] [place] [address] Dr. Kenna Hudson #0.07 10e3/ulCritically high0.00-0.03The [facility] Comment on above:Performed By: #### GLUC, LIPID #### [facility] [address] [address] [address] Kenna Hudson %0.6 %Critically high0.0-0.5The [facility] HospitalComment on above:Performed By: #### GLUC, LIPID #### [facility] [address] [place] [address] Dr. Kenna Alba #2.4 103/ulNormal1.2-3.8The [facility] HospitalComment on above:Performed By: #### GLUC, LIPID #### [facility] [address] [place] [address] Dr. Kenna Emhocytes/100 WBC (Bld)21.2 %Dudnwv36.5-60.0The [facility] HospitalComment on above:Performed By: #### GLUC, LIPID #### [facility] [address] [place] [address] Dr. Kenna BenitezUAL DIFF REQNONormalThe [facility] HospitalComment on above: Performed By: #### GLUC, LIPID #### [facility] [address] [place] [address] Dr. Kenna Quiñones (RBC) [Entitic mass]33.1 huWfnmci82.9-34.0The [facility] HospitalComment on above:Performed By: #### GLUC, LIPID #### [facility] [address] [place] [address] Dr. Kenna Quiñones (RBC) [Mass/Vol]35.2 g/nUAvyktq31.9-35.2The [facility] HospitalComment on above:Performed By: #### GLUC, LIPID #### [facility] [address] [place] [address] Dr. Kenna Quiñones (RBC) [Entitic vol]94.1 fLCritically high80.0-94.0The [facility] HospitalComment on above:Performed By: #### GLUC, LIPID #### [facility] [address] [address] [address] Kenna Chua #0.9 103/ulCritically high0.3-0.8The [facility] Comment on above:Performed By: #### GLUC, LIPID #### [facility] [address] [address] [address] Kenna Willocytes/100 WBC (Bld)8.3 %Normal1.7-12.0[facility] Comment on above:Performed By: #### GLUC, LIPID #### [facility] [address] [place] [address] Dr. Kenna Ralph #7.1 103/ulCritically high1.4-6.5ThTrinity Health System Comment on above:Performed By: #### GLUC, LIPID #### [facility] [address] [place] [address] Dr. Kenna Matthewsutrophils/100 WBC (Bld)63.5 %Dbytxf17.0-75.0The [facility] HospitalComment on above:Performed By: #### GLUC, LIPID #### [facility] [facility] [address] [place] [address] Dr. Kenna Mtz mean volume (Bld) [Entitic vol]9.9 fLNormal9.5-13.5The [facility] HospitalComment on above:Performed By: #### GLUC, LIPID #### [facility] [address] [place] [address] Dr. Kenna ThomasPLT230 103/tlJixohv760-231Cja [facility] HospitalComment on above: Performed By: #### GLUC, LIPID #### [facility] [address] [place] [address] Dr. Kenna ThomasRBC4.44 106/ulCritically low4.70-6.10The [facility] HospitalComment on above:Performed By: #### GLUC, LIPID #### [facility] [address] [place] [address] Dr. Kenna ThomasWBC11.2 103/ulCritically high4.0-11.0[facility] Vincent Medical CenterComment on above:Performed By: #### GLUC, LIPID #### [facility] [address] [address] [address] Kenna ThomasLACTATE/LACTIC ACIDon 17-44-7846Nxnwfdn [Moles/Vol]2.0 mmol/L Critically high0.4-1.9The [facility] HospitalComment on above:Performed By: #### LACT #### [facility] [address] [address] [address] Kenna ThomasMAGNESIUMon 70-37-0129Jycrtqdhi [Mass/Vol]1.7 mg/dLCritically low 1.8-2.4The [facility] HospitalComment on above:Performed By: #### GLUC, LIPID #### [facility] [address] [place] [address] Dr. Kenna ThomasPROF 14(COMP METB)on 73-82-2836Mhvxplp [Mass/Vol]3.3 g/dL Critically low3.4-5.0The [facility] HospitalComment on above:Performed By: #### GLUC, LIPID #### [facility] [address] [place] [address] Dr. Kenna ThomasAlbumin/Globulin [Mass ratio]0.8 {ratio}NormalThe [facility] HospitalComment on above:Performed By: #### GLUC, LIPID #### [facility] [address] [place] [address] Dr. Kenna Painter [Catalytic activity/Vol]156 U/LCritically kykp67-013Rnb [facility] HospitalComment on above:Performed By: #### GLUC, LIPID #### [facility] [address] [place] [address] Dr. Kenna Livingston [Catalytic activity/Vol]28 U/LQjzrza72-94Hpu [facility] HospitalComment on above:Performed By: #### GLUC, LIPID #### [facility] [address] [place] [address] Dr. Kenna Rosenberg gap [Moles/Vol]15.0 mmol/LNormalThe [facility] Comment on above:Performed By: #### GLUC, LIPID #### [facility] [address] [address] [address] Kenna ThomasAST [Catalytic activity/Vol]20 U/XWvypfb53-23Kyd [facility] HospitalComment on above:Performed By: #### GLUC, LIPID #### [facility] [address] [address] [address] Kenna ThomasBilirubin [Mass/Vol]0.5 mg/dLNormal0.2-1.0The [facility] Comment on above:Performed By: #### GLUC, LIPID #### [facility] [address] [address] [address] Kenna ThomasCalcium [Mass/Vol]9.0 mg/dLNormal8.5-10.1The [facility] Comment on above:Performed By: #### GLUC, LIPID #### [facility] [address] [address] [address] Kenna ThomasChloride [Moles/Vol]100 mmol/KXueqwz23-849Yib [facility] Comment on above:Performed By: #### GLUC, LIPID #### [facility] [address] [address] [address] Kenna ThomasCO2 [Moles/Vol]25.6 mmol/QRaomnp46.0-32.0The [facility] Comment on above:Performed By: #### GLUC, LIPID #### [facility] [address] [address] [address] Kenna ThomasCreatinine [Mass/Vol]0.83 mg/dLNormal0.70-1.30The [facility] HospitalComment on above:Performed By: #### GLUC, LIPID #### [facility] [address] [address] [address] Kenna WebbGFR-AF ECUADOREAN>60Normal>=60The [facility] HospitalComment on above:Performed By: #### GLUC, LIPID #### [facility] [address] [address] [address] Kenna WebbGFR-NON AF ECUADOREAN>60Normal>=60The [facility] HospitalComment on above:Performed By: #### GLUC, LIPID #### [facility] [address] [address] [address] Kenna ThomasGlobulin (S) [Mass/Vol]4.0 g/dLNoPremier Health Miami Valley Hospital SouthComment on above:Performed By: #### GLUC, LIPID #### [facility] [address] [address] [address] Kenna ThomasGlucose [Mass/Vol]170 mg/dLCritically adxa09-506Arz [facility] HospitalComment on above:Performed By: #### GLUC, LIPID #### [facility] [address] [address] [address] Kenna ThomasPotassium [Moles/Vol]3.6 mmol/LNormal3.5-5.1The [facility] Comment on above:Performed By: #### GLUC, LIPID #### [facility] [address] [address] [address] Kenna ThomasProtein [Mass/Vol]7.3 g/dLNormal6.4-8.2The [facility] Comment on above:Performed By: #### GLUC, LIPID #### [facility] [address] [address] [address] Kenna ThomasSodium [Moles/Vol]137 mmol/QFftvqt854-664Mqk [facility] Comment on above:Performed By: #### GLUC, LIPID #### [facility] [address] [address] [address] Kenna ThomasUrea nitrogen [Mass/Vol]10.0 mg/dLNormal7.0-18.0The [facility] HospitalComment on above:Performed By: #### GLUC, LIPID #### [facility] [address] [place] [address] Dr. Kenna Pineda nitrogen/Creatinine [Mass ratio]12.0 mg/mgNoPremier Health Miami Valley Hospital SouthComment on above:Performed By: #### GLUC, LIPID #### [facility] [address] [place] [address] Dr. Kenna ThomasGLYCOHEMOGLOBIN A1Con 77-59-8166QXW RECOMMENDATIONSEE BELOWNormid The [facility] HospitalComment on above:Result Comment: ADA RECOMMENDED LIMIT 4.0 - 6.0 ADA THERAPEUTIC TARGET < 7.0 ACTION SUGGESTED > 7.0Performed By: #### GLUC, LIPID #### [facility] [address] [place] [address] Dr. Kenna ThomasGlucose [Mass/Vol]154 mg/dLNoPremier Health Miami Valley Hospital SouthComment on above:Performed By: #### GLUC, LIPID #### [facility] [address] [address] [address] Kenna ThomasHbA1c (Bld) [Mass fraction]7.0 %Critically high4.5-6.2The [facility] HospitalComment on above:Performed By: #### GLUC, LIPID #### [facility] [address] [place] [address] Dr. Kenna GilbertID PROFILEon 06-17-5598ZKDE-HDL RATIO NORMSEE BELOWGreen Cross HospitalComment on above:Result Comment: 3.3 - 4.4 LOW RISK 4.4 - 7.1 AVERAGE RISK 7.1 - 11.0 MODERATE RISK >11.0 HIGH RISKPerformed By: #### LIPID #### [facility] [address] [place] [address] Dr. Kenna Javieresterol [Mass/Vol]186 mg/dLNormal<=200The [facility] Comment on above:Performed By: #### LIPID #### [facility] [address] [place] [address] Dr. Kenna ThomasCholesterol in HDL [Mass/Vol]31 mg/dLCritically jwj99-96Xhh [facility] HospitalComment on above:Performed By: #### LIPID #### [facility] [address] [place] [address] Dr. Kenna Javieresterol in LDL [Mass/Vol]91.2 mg/dLNoPremier Health Miami Valley Hospital SouthComment on above:Performed By: #### LIPID #### [facility] [address] [place] [address] Dr. Kenna Javierestergarrett.total/Cholesterol in HDL [Mass ratio]6.0 {ratio} NormalThe [facility] HospitalComment on above:Performed By: #### LIPID #### [facility] [address] [address] [address] Kenna ThomasHDGonsalo NORMAL> or = 60 mg/dl - LOW CARDIOVASCULAR RISK <40 mg/dl - HIGH CARDIOVASCULAR RISKGreen Cross HospitalComselect specialty hospital[facility] on above:Performed By: #### LIPID #### [facility] [address] [address] [address] Kenna ThomasLDL CALC NORMALSEE BELOWNoPremier Health Miami Valley Hospital SouthComment on above:Result Comment: <100 mg/dl OPTIMAL 100 - 129 mg/dl NEAR OR ABOVE OPTIMAL 130 - 159 mg/dl BORDERLINE HIGH 160 - 189 mg/dl HIGH >190 mg/dl VERY HIGH Performed By: #### LIPID #### [facility] [address] [place] [address] Dr. Kenna ThomasTriglyceride [Mass/Vol]319 mg/dLCritically high<=150The [facility] HospitalComselect specialty hospital[facility] on above:Performed By: #### LIPID #### [facility] [address] [place] [address] Dr. Kenna ThomasVLDL CALC63.8 mg/dLGreen Cross HospitalComment on above: Performed By: #### LIPID #### [facility] [address] [place] [address] Dr. Kenna ThomasTESTOSTERONE, TOTALon 53-70-2339Cvwupwpnglyc [Mass/Vol]447 ng/dL Pvwzbl649-145Plv [facility] on above:Result Comment: Adult male reference interval is based on a population of healthy nonobese males (BMI <30) between 19 and 39 years old. Doug et.al. JCEM 2017,102;5715-6742. PMID: [id number].Performed By: #### TESTTOT #### [facility] [address] [place] [address] Dr. Kenna ThomasGLUCOSE BLOODon 15-35-7492Rmbsooa [Mass/Vol]147 mg/dLCritically bnqp88-160Ngs [facility] on above:Performed By: #### GLUC, LIPID #### [facility] [address] [place] [address] Dr. Kenna GilbertID PROFILEon 25-06-5351MHLD-HDL RATIO NORMSMetroHealth Main Campus Medical CenterComment on above:Result Comment: 3.3 - 4.4 LOW RISK 4.4 - 7.1 AVERAGE RISK 7.1 - 11.0 MODERATE RISK >11.0 HIGH RISKPerformed By: #### GLUC, LIPID #### [facility] [address] [place] [address] Dr. Kenna Javieresterol [Mass/Vol]140 mg/dLNormal<=200[facility] Comment on above:Performed By: #### GLUC, LIPID #### [facility] [address] [place] [address] Dr. Kenna ThomasCholesterol in HDL [Mass/Vol]33 mg/dLCritically ime50-22HdaMercy Health St. Vincent Medical CenterComment on above:Performed By: #### GLUC, LIPID #### [facility] [address] [place] [address] Dr. Kenna Javieresterol in LDL [Mass/Vol]55.4 mg/dLGreen Cross HospitalComment on above:Performed By: #### GLUC, LIPID #### [facility] [address] [place] [address] Dr. Kenna Javierestergarrett.total/Cholesterol in HDL [Mass ratio]4.2 {ratio} NormalMercy Health St. Vincent Medical CenterComment on above:Performed By: #### GLUC, LIPID #### [facility] [address] [place] [address] Dr. Kenna Johnson NORMAL> or = 60 mg/dl - LOW CARDIOVASCULAR RISK <40 mg/dl - HIGH CARDIOVASCULAR RISKGreen Cross HospitalComment on above:Performed By: #### GLUC, LIPID #### [facility] [address] [place] [address] Dr. Kenna ThomasLDL CALC NORMALSEE [facility] HospitalComment on above:Result Comment: <100 mg/dl OPTIMAL 100 - 129 mg/dl NEAR OR ABOVE OPTIMAL 130 - 159 mg/dl BORDERLINE HIGH 160 - 189 mg/dl HIGH >190 mg/dl VERY HIGH Performed By: #### GLUC, LIPID #### [facility] [address] [place], [place] [address] Dr[address] Kenna ThomasTriglyceride [Mass/Vol]258 mg/dLCritically high<=150[facility] on above:Performed By: #### GLUC, LIPID #### [facility] [address] [place], [place] [address] Dr. Kenna ThomasVLDL CALC51.6 mg/dLNormalThe [facility] on above: Performed By: #### GLUC, LIPID #### [facility] [address] [place], [place] [address] Dr. Kenna Randolph Metabolic Profon 02-03-2017(cont.)[facility] HospitalCom[facility] on above:Result Comment: Average GFR for 40-49 years old: 99 mL/min/1.73sq mChronic Kidney Disease: <60 mL/min/1.73sq mKidney failure: <15 mL/min/1.73sq meGFR calculated using average adult body mass. Additional eGFR calculator available at:http://www.[employer]/multiple_crcl_2012.htmPerformed at [facility] [address] [phone] By: #### CP ####[address] [place] [address] Alanine aminotransferase (ALT)27 U/LNormal5-41[facility] on above:Performed By: #### CP ####[address] [place], [place] [phone] g/dLNormal3.5-5.2M[address] [facility] on above:Performed By: #### CP ####[address] [place] [address] Albumin/Globulin Ratio1.1 {ratio}Normal1.0-2.5[facility] on above:Performed By: #### CP ####[address] [place] [address] Alkaline Fror417 U/L Bpnksj39-442BlmifOhio State University Wexner Medical CenterComment on above:Performed By: #### CP ####[address] [place] [address] Anion gap14 mmol/LNormal9-17MerBlanchard Valley Health System Bluffton HospitalComment on above:Performed By: #### CP ####[address] [address] Aspartate aminotransferase (AST)20 U/LNormal<40MerBlanchard Valley Health System Bluffton HospitalComment on above: Performed By: #### CP ####[address] [address] Bilirubin Ql (U)0.28 mg/dLLow0.3-1.2[facility] Comment on above:Performed By: #### CP ####[address] [address] Msnrzpz8.0 mg/dLNormal8.6-10.4[facility] CenterComment on above:Performed By: #### CP ####[address] [address] Vxkpnoyo41 mmol/GBnxsse49-206UduimBlanchard Valley Health System Bluffton HospitalComment on above:Performed By: #### CP ####[address] [address] AB257 mmol/KNvaabp56-82NhkliOhio State University Wexner Medical CenterComment on above:Performed By: #### CP ####[address] [place] [address] Rmrvnbyibf8.74 mg/dLNormal0.70-1.20MerBlanchard Valley Health System Bluffton HospitalComment on above:Performed By: #### CP ####[address] [address] eGFR (non-black) mL/min/{1.73_m2}Normal>60[facility] Jewish HospitalComment on above:Performed By: #### CP ####[address] [address] Glucose mass ccuc465 mg/hBWzpa40-44Cthgk The Jewish HospitalComment on above: Performed By: #### CP ####[address] [phone] molar conc4.2 mmol/LNormal3.7-5.3[facility] HospitalComment on above:Performed By: #### CP ####[address] [phone] g/dLNormal6.4-8.3[facility] HospitalComment on above:Performed By: #### CP ####[address] [phone] mmol/INwhxoy290-893CfscqOhio State University Wexner Medical CenterComment on above:Performed By: #### CP ####[address] [phone] nitrogen9 mg/dLNormal6-20[facility] CenterComment on above:Performed By: #### CP ####[address] [phone]/CRE RatioNOT REPORTEDNormal9-20[facility] CenterComment on above:Performed By: #### CP ####[address] [phone]:NOT REPORTED NormalOhio State University Wexner Medical CenterComment on above:Performed By: #### CP ####[place], [place] [phone] Scr, Abuse, Uron 17-87-8219Eilsuielhyw(s),UrNegativeNormalNEGMercy Greene Memorial Hospital on above:Result Comment: (Positive cutoff 1000 ng/mL)Performed By: #### UA, UMICAO, YAZMIN ####[address] [phone](s),UrNegativeNormalNEGMercy Greene Memorial Hospital on above:Result Comment: (Positive cutoff 200 ng/mL)Performed By: #### UA, UMICAO, YAZMIN ####[address] [phone] excessNegativeNormalNEGMercy Greene Memorial Hospital on above:Result Comment: (Positive cutoff 300 ng/mL)Performed By: #### UA, UMICAO, YAZMIN ####[address] [address] Benzodiazepine(s)NegativeNormalNEGMercy Greene Memorial Hospital on above: Result Comment: (Positive cutoff 200 ng/mL)Performed By: #### UA, UMICAO, YAZMIN ####[address] [address] Cannabinoid(s),UrNegativeNormalNEGMercy Greene Memorial Hospital on above: Result Comment: (Positive cutoff 50 ng/mL)Performed By: #### UA, UMICAO, YAZMIN ####[address] [address] Interpretive InfoAssay provides medical screening only. The absence of expected drug(s) and/orNormalMercy Greene Memorial Hospital on above:Result Comment: metabolite(s) may indicate diluted or adulterated urine, limitations of testing or timing of collection.Testing for legal purposes should be confirmed by another method. To request confirmation of test result, please call the lab within 7 days of sample submission.Performed at [address] [address] ([phone] By: #### UA, UMICAO, YAZMIN ####[address] [address] Opiate(s), UrNegativeNormalNEGMercy The Jewish HospitalComselect specialty hospital[facility] on above:Result Comment: (Positive cutoff 300 ng/mL)Performed By: #### UA, UMICAO, YAZMIN ####[address] [phone], UrineNegativeNormalNEGMercy The Jewish HospitalComselect specialty hospital[facility] on above:Result Comment: (Positive cutoff 100 ng/mL)Performed By: #### UA, UMICAO, YAZMIN ####[address] [phone], Ur NegativeNormalNEGMercy The Jewish HospitalComselect specialty hospital[facility] on above:Result Comment: (Positive cutoff 25 ng/mL)Performed By: #### UA, UMICAO, YAZMIN ####[address] [address] Urine, methadone presenceNegativeNormalNEGMercy The Jewish HospitalComselect specialty hospital[facility] on above:Result Comment: (Positive cutoff 300 ng/mL)Performed By: #### UA, UMICAO, YAZMIN ####[address] [address] Buprenorphrine, UrNOT REPORTEDNormalNEGMercy The Jewish HospitalComment on above:Performed By: #### UA, UMICAO, YAZMIN ####[address] [phone], UrineNOT REPORTEDNormalNEGMercy The Jewish HospitalComselect specialty hospital[facility] on above:Performed By: #### UA, UMICAO, YAZMIN ####[address] [address] Methamphetamine, UrNOT REPORTEDNormalNEGMercy The Jewish HospitalComment on above:Performed By: #### UA, UMICAO, YAZMIN ####[address] [address] Propoxyphene,UrineNOT REPORTEDNormalNEG [facility] Medical CenterComment on above:Performed By: #### UA, UMICAO, YAZMIN ####[address] [address] Urine, tricyclic antidepressantsNOT REPORTEDNormalNEGOhio State University Wexner Medical Center Comment on above:Performed By: #### UA, UMICAO, YAZMIN ####[address] [address] Urinalysis, Routineon 18-84-4117Enoilaunqjurp mass concNegativeNormalNEGOhio State University Wexner Medical Center Comment on above:Performed By: #### UA, UMICAO, YAZMIN ####[address] [address] Bilirubin (direct)Negative NormalNEGOhio State University Wexner Medical CenterComment on above:Performed By: #### UA, UMICAO, YAZMIN ####[address] [phone] mass conc (Bld)TRACEAbnormalNEGOhio State University Wexner Medical Center Comment on above:Performed By: #### UA, UMICAO, YAZMIN ####[address] [address] Nitrite,UrNegativeNormal NEGOhio State University Wexner Medical CenterComment on above:Performed By: #### UA, UMICAO, YAZMIN ####[address] [address] TurbidityCLEARNormalCLEARMerBlanchard Valley Health System Bluffton HospitalComment on above:Performed By: #### UA, UMICAO, YAZMIN ####[facility] [place] [address] Urine, colorYELLOWNormalYELMerBlanchard Valley Health System [facility] Comment on above:Performed By: #### UA, UMICAO, YAZMIN ####[address] [address] Urine, glucose presence NegativeNormalNEGOhio State University Wexner Medical CenterComment on above:Performed By: #### UA, UMICAO, YAZMIN ####[address] [address] Urine, leukocyte esterase presenceNegativeNormalNEGOhio State University Wexner Medical CenterComment on above:Result Comment: Performed at [address] [address] Performed By: #### UA, UMICAO, YAZMIN ####[address] [place] [address] Urine, pH6.0 [pH]Normal5.0-8.0[facility] Comment on above:Performed By: #### UA, UMICAO, YAZMIN ####[address] [address] Urine, protein presence NegativeNormalNEGOhio State University Wexner Medical CenterComment on above:Performed By: #### UA, UMICAO, YAZMIN ####[address] [address] Urine, specific gravity1.943Vaafxs4.000-1.030[facility] CenterComselect specialty hospital[facility] on above:Performed By: #### UA, UMICAO, YAZMIN ####[address] [address] Urobilinogen,Ur NormalNormalNORMMercy The Jewish HospitalComment on above:Performed By: #### UA, UMICAO, YAZMIN ####[address] [phone] REPORTEDNormalMercy The Jewish HospitalComment on above:Performed By: #### UA, UMICAO, YAZMIN ####[address] [address] Urinalysis,Microon 02-03-2017----- NormalMercy The Jewish HospitalComselect specialty hospital-[facility] on above:Performed By: #### UA, UMICAO, YAZMIN ####[address] [address] Urine WBC's0 TO 2NormalMercy The Jewish HospitalComselect specialty hospital-[facility] on above:Performed By: #### UA, UMICAO, YAZMIN ####[address] [address] Urine, bacteria in sedimentFEWAbnormalNONEMercAshtabula General HospitalComment on above:Result Comment: Performed at [address] [address] [phone] By: #### UA, UMICAO, YAZMIN ####[address] [phone], epithelial cells in sediment0 TO 2NormalMercy The Jewish HospitalComment on above:Performed By: #### UA, UMICAO, YAZMIN ####[address] [address] Urine, erythrocytes2 TO 5NormalMercy The Jewish HospitalComment on above:Performed By: #### UA, UMICAO, YAZMIN ####[address] [phone], RenalNOT QYCKGCAEIyjuuw5Wgwrz[address] [place] [address] Comment on above:Performed By: #### UA, UMICAO, YAZMIN ####[address] [address] Mucus StrandsNOT REPORTED NormalNONMercy Health St. Rita's Medical CenterComment on above:Performed By: #### UA, UMICAO, YAZMIN ####[address] [phone] ObservationsNOT REPORTEDNoalNRAdena Pike Medical Center Comment on above:Performed By: #### UA, UMICAO, YAZMIN ####[address] [phone] REPORTED NormalMary Rutan HospitalComment on above:Performed By: #### UA, UMICAO, YAZMIN ####[address] [phone], amorphous sediment presence in sedimentNOT REPORTEDNoMarietta Memorial HospitalComment on above:Performed By: #### UA, UMICAO, YAZMIN ####[address] [address] Urine, casts in sedimentNOT REPORTEDGalion Community HospitalComment on above:Performed By: #### UA, UMICAO, YAZMIN ####[address] [address] Urine, crystals in sedimentNOT REPORTED NormalDIGNITY HEALTH ARIZONA GENERAL HOSPITALEMeOhioHealth Shelby HospitalComment on above:Performed By: #### UA, UMICAO, YAZMIN ####[address] [phone], yeast presence in sedimentNOT REPORTEDNormalProMedica Flower Hospital HospitalComment on above:Performed By: #### UA, UMICAO, YAZMIN ####[address] [address] CBC with Diff on 70-71-6521Xqy. Basophil0.10 k/uLNormal0.0-0.2MCenterville Comment on above:Result Comment: Performed at [facility] [address] [place] [address] Performed By: #### CDP, CP ####[address] [address] Abs.Neutrophil (Seg)5.40 k/uLNormal1.3-9.1MCentervilleComment on above:Performed By: #### CDP, CP ####[address] [address] Basophils/100 WBC Auto (Bld)1 %NormalOhio State University Wexner Medical CenterComment on above:Performed By: #### CDP, CP ####[address] [address] Jsynzcbxuwx3.40 10*3/uLNormal0.0-0.4MerBlanchard Valley Health System Bluffton HospitalComment on above:Performed By: #### CDP, CP ####[address] [address] Eosinophils/100 leukocytes5 %NormalOhio [facility] Comment on above:Performed By: #### CDP, CP ####[address] [address] Erythrocyte distribution width Auto Ratio (RBC)13.0 %Jhcviv84.5-14.9[facility] Medical CenterComment on above: Performed By: #### CDP, CP ####[address] [address] Erythrocytes (RBC)4.26 10*6/uLLow4.5-5.9MerBlanchard Valley Health System Bluffton HospitalComment on above:Performed By: #### CDP, CP ####[address] [address] Hematocrit (HCT) 42.3 %Xkyltb39-60MjrliBlanchard Valley Health System Bluffton HospitalComment on above:Performed By: #### CDP, CP ####[address] [address] Hemoglobin mass conc (Bld)14.5 g/bRIhiurh69.5-17.5[facility] CenterComment on above:Performed By: #### CDP, CP ####[address] [address] Xjlqjdszbew3.20 10*3/uLNormal1.0-4.8MerBlanchard Valley Health System Bluffton HospitalComment on above:Performed By: #### CDP, CP ####[address] [address] Lymphocytes/100 ysvudxpmwc87 %NormalOhio [facility] University [facility] Comment on above:Performed By: #### CDP, CP ####[address] [address] SPK40.0 sdCiuyjy86-22CesjxBlanchard Valley Health System Bluffton HospitalComment on above:Performed By: #### CDP, CP ####[address] [address] MCHC mass conc (RBC)34.2 g/dGMqssnp18-33IjwhyBlanchard Valley Health System Bluffton HospitalComment on above:Performed By: #### CDP, CP ####[address] [address] YEL23.3 kUYsedak77-875DdlbvBlanchard Valley Health System Bluffton HospitalComment on above:Performed By: #### CDP, CP ####[facility] [place] [address] Mtisklqgj5.60 10*3/uLNormal0.1-1.3[facility] HospitalComment on above:Performed By: #### CDP, CP ####[address] [address] Monocytes/100 leukocytes7 %NormalOhio State University Wexner Medical CenterComselect [facility] on above:Performed By: #### CDP, CP ####[address] [address] Neutrophil (Seg)62 %NormalOhio State University Wexner Medical CenterComselect [facility] hospital[facility] on above:Performed By: #### CDP, CP ####[address] [address] Platelet mean volume (PMV)9.1 fLNormal6.0-12.0 [facility] on above:Performed By: #### CDP, CP ####[address] [address] Erpkwmkkf921 10*3/iWXzysuf634-993IdpwwOhio State University Wexner Medical CenterComselect specialty hospital[facility] on above:Performed By: #### CDP, CP ####[address] [address] WBC (Leukocytes)8.7 10*3/uLNormal3.5-11.0[facility] CenterComselect [facility] on above:Performed By: #### CDP, CP ####[address] [address] Auto Diff PerformedNOT REPORTEDNormalOhio State University Wexner Medical CenterComselect [facility] hospital[facility] on above:Performed By: #### CDP, CP ####[address] [place] [address] Erythrocyte morphologyNOT REPORTEDNormalOhio State University Wexner Medical CenterComment on above:Performed By: #### CDP, CP ####[address] [phone] REPORTEDNormalOhio State University Wexner Medical CenterComment on above:Performed By: #### CDP, CP ####[address] [address] WBC MorphologyNOT REPORTED NormalOhio State University Wexner Medical CenterComment on above:Performed By: #### CDP, CP ####[address] [phone] Metabolic Profon 01-30-2017(cont.)NormalOhio State University Wexner Medical CenterComment on above:Result Comment: Average GFR for 40-49 years old: 99 mL/min/1.73sq mChronic Kidney Disease: <60 mL/min/1.73sq mKidney failure: <15 mL/min/1.73sq meGFR calculated using average adult body mass. Additional eGFR calculator available at:http://www.[employer]/multiple_crcl_2011.htmPerformed at [facility] [address] [place] [address] ([phone] By: #### CDP, CP ####[address] [address] Alanine aminotransferase (ALT)20 U/LNormal5-41[facility] Medical CenterComment on above:Performed By: #### CDP, CP ####[address] [address] Albumin3.3 g/dLLow 3.5-5.2[facility] Jewish HospitalComment on above:Performed By: #### CDP, CP ####[address] [address] Alkaline Omfh241 U/NClyurz55-428QoiqyBlanchard Valley Health System Bluffton HospitalComment on above: Performed By: #### CDP, CP ####[address] [address] Anion gap12 mmol/LNormal9-17MerBlanchard Valley Health System Bluffton HospitalComment on above:Performed By: #### CDP, CP ####[address] [address] Aspartate aminotransferase (AST)26 U/LNormal<40MerBlanchard Valley Health System Bluffton HospitalComment on above:Performed By: #### CDP, CP ####[address] [address] Bilirubin Ql (U)0.29 mg/dLLow0.3-1.2MC[place] Comment on above:Performed By: #### CDP, CP ####[address] [address] Nuzfozy1.4 mg/dLLow8.6-10.4[facility] Medical CenterComment on above:Performed By: #### CDP, CP ####[address] [address] Ivotchoy733 mmol/L Ykkwsk30-437DozjoBlanchard Valley Health System Bluffton HospitalComment on above:Performed By: #### CDP, CP ####[address] [address] CO227 mmol/IYewdlc71-56FoywkOhio State University Wexner Medical CenterComment on above:Performed By: #### CDP, CP ####[address] [address] Dfjblpbgrr8.70 mg/dLNormal0.70-1.20MerBlanchard [facility] Comment on above:Performed By: #### CDP, CP ####[address] [address] eGFR (non-black)mL/min/{1.73_m2}Normal >60[facility] HospitalComment on above:Performed By: #### CDP, CP ####[address] [address] Glucose mass rywe590 mg/jJKvin87-72Cnvlc [facility] HospitalComment on above: Performed By: #### CDP, CP ####[address] [address] Potassium molar conc3.1 mmol/LLow3.7-5.3[facility] HospitalComment on above:Performed By: #### CDP, CP ####[address] [address] Dgwixzz2.2 g/dLLow 6.4-8.3[facility] HospitalComment on above:Performed By: #### CDP, CP ####[address] [address] Xhesxv700 mmol/DFawbsg674-860Xwvbp [facility] HospitalComment on above: Performed By: #### CDP, CP ####[address] [address] Urea nitrogen5 mg/dLLow6-20[facility] HospitalComment on above:Performed By: #### CDP, CP ####[address] [address] Albumin/Globulin RatioNOT REPORTEDNormal1.0-2.5[facility] HospitalComment on above:Performed By: #### CDP, CP ####[address] [address] BUN/CRE RatioNOT REPORTEDNormal9-20[facility] Comment on above:Performed By: #### CDP, CP ####[facility] [facility] [place] [address] Staging:NOT REPORTEDNormalOhio State University Wexner Medical CenterComment on above:Performed By: #### CDP, CP ####[facility] [place] [address] Vital Signs Date TimeVital SignValuePerforming IqeggvpfiXkexdkxm24-83-6144 14:26-0500Body lkhokw868.18 cmBam Mcfarland MD Work Phone: [phone] [place], [place] 7203411-04-2025 14:26-0500 Body mass index (BMI) [Ratio]44.4 kg/x8BooogelBam Mcfarland MD Work Phone: [phone] [place], [place] 7203411-04-2025 14:26-0500 Body lolecr457.82 kgBam Mcfarland MD Work Phone: [phone])[address] [place], [place] 7203411-04-2025 14:26-0500 Diastolic blood ctvfiswz39 mm[Hg]Bam Mcfarland MD Work Phone: [phone])[address] [place], [place] 7203411-04-2025 14:26-0500 Heart smqz397 /Elgin Mcfarland MD Work Phone: [phone])[address] [place], [place] 7203411-04-2025 14:26-0500 Respiratory rate20 /Elgin Mcfarland MD Work Phone: [phone] [place], [place] 7203411-04-2025 14:26-0500 SaO2% (BldA) [Mass fraction]96 %Bam Mcfarland MD Work Phone: [phone] [place], [place] 7203411-04-2025 14:26-0500 Systolic blood phggophf872 mm[Hg]Bam Mcfarland MD Work Phone: [phone])[address] [place], [place] 7203410-07-2025 10:57-0400 Body iudchy095.2 Rodri Xie MD Work Phone: [phone]10-07-2025 10:57-0400Body mass index (BMI) [Ratio]40.88 kg/d7WrdxlZaria Xie MD Work Phone: [phone] [place] [address]-07-2025 10:57-0400Body .39 kgZaria Xie MD Work Phone: 1(360)[address] [place], [place] 9170610-07-2025 10:57-0400Diastolic blood mm[Hg]Zaria Xie MD Work Phone: 1(995)[address] [place], [place] 9170610-07-2025 10:57-0400Heart rate99 /min Zaria Xie MD Work Phone: 1(383)[address] [place], [place] 9170610-07-2025 10:57-0400Respiratory rate18 /minZaria Xie MD Work Phone: [phone] [place], [place] 9170610-07-2025 10:57-5122MgO8% (BldA) [Mass fraction]97 %Zaria Xie MD Work Phone: 1(522)[address] [place], [place] 9170610-07-2025 10:57-0400Systolic blood ysghwybo193 mm[Hg]Zaria Xie MD Work Phone: 1(675)[address] [place], [place] 9170610-02-2025 09:36-0400Body .18 cmBam Mcfarland MD Work Phone: [phone] [place], [place] 3576610-02-2025 09:36-0400 Body mass index (BMI) [Ratio]40.7 kg/y4MaelxryBam Mcfarland MD Work Phone: [phone]10-02-2025 09:36-0400 Body .93 kgBam Mcfarland MD Work Phone: 1([phone])935-[address] [place], [place] 3576610-02-2025 09:36-0400 Diastolic blood enjzpyum21 mm[Hg]Bam Mcfarland MD Work Phone: [phone])994-[address] [place], [place] 3576610-02-2025 09:36-0400 Heart rate88 /minDcarrol Mcfarland MD Work Phone: [facility]10-02-2025 09:36-0400 Respiratory rate20 /Elgin Mcfarland MD Work Phone: [facility]10-02-2025 09:36-0400 SaO2% (BldA) [Mass fraction]97 %Bam Mcfarland MD Work Phone: [facility]10-02-2025 09:36-0400 Systolic blood mm[Hg]Bam Mcfarland MD Work Phone: [facility]07-07-2025 14:55-0400 Body zoogpg044.2 cmHorace Rollins MD Work Phone: [facility] CenterNvatbmagag86-67-7594 14:55-0400Body mass index (BMI) [Ratio]42.29 kg/m2Horace Rollins MD Work Phone: [facility] CenterXeddaxbdwh71-97-9428 14:55-0400Body temperature 97.11 [degF]Horace Rollins MD Work Phone: [facility] CenterRjezczeizv42-03-6983 14:55-0400Body tzoult542.47 kgHorace Rollins MD Work Phone: [facility] CenterAckwutvmwv74-45-3354 14:55-0400Diastolic blood liqhevmo31 mm[Hg]Horace Rollins MD Work Phone: [facility] CenterOtwspowewx36-41-3164 14:55-0400Heart rate94 /min Horace Rollins MD Work Phone: [facility] CenterWxbryynreo61-92-0296 14:55-0400Respiratory rate18 /minHorace Rollins MD Work Phone: [facility] CenterLnckwauvcj66-87-6461 14:55-3806EmS0% (BldA) [Mass fraction]98 %Horace Rollins MD Work Phone: [facility] CenterKfjpwqgzwj24-58-3240 14:55-0400Systolic blood lzayazpu813 mm[Hg]Horace Rollins MD Work Phone: [facility] CenterVsizmgkrqg73-93-2087 11:24-0400Body .2 cmChuckie Brown MD Work Phone: [facility] CenterIjqcouyixl58-37-9554 11:24-0400Body mass index (BMI) [Ratio]43.07 kg/h1IoxrmrChuckie Brown MD Work Phone: [facility] CenterXujfdaaskv50-44-0238 11:24-0400Body jpasrv260.74 kgChuckie Brown MD Work Phone: [facility] CenterSzfxypgoug65-41-2041 11:24-0400Diastolic blood mm[Hg]Chuckie Brown MD Work Phone: [facility] CenterJikphlshvm10-89-3076 11:24-0400Heart rate96 /min Chuckie Brown MD Work Phone: [facility] CenterGnoyxssiyq20-49-9698 11:24-0400Systolic blood jkdezcap925 mm[Hg]Chuckie Brown MD Work Phone: [facility] CenterVtrrkdmdmu26-97-0596 09:02-0400Body roiegq738.2 cmHorace Rollins MD Work Phone: [facility] CenterYooxcnblqg13-22-7461 09:02-0400Body mass index (BMI) [Ratio]43.38 kg/m2Horace Rollins MD Work Phone: [facility] CenterZmlyzrnddn82-20-6923 09:02-0400Body temperature 97.11 [degF]Horace Rollins MD Work Phone: [facility] CenterUeyemindex39-35-9160 09:02-0400Body jbyizb084.65 kgHorace Rollins MD Work Phone: [facility] CenterJwyqdhxxrj96-95-1411 09:02-0400Diastolic blood onqegtgk96 mm[Hg]Horace Rollins MD Work Phone: [facility] CenterEtxfoczidr14-30-8513 09:02-0400Heart rate97 /min Horace Rollins MD Work Phone: noLee[facility] HospitalZrhntemubo34-51-3498 09:02-0400Respiratory rate18 /minHorace Rollins MD Work Phone: noLee[facility] Summit HospitalOopliitfyr57-55-6897 09:02-7026LkK8% (BldA) [Mass fraction]99 %Horace Rollins MD Work Phone: noLee[facility] Summit HospitalRzskhdndlt57-33-4669 09:02-0400Systolic blood zbysjqai671 mm[Hg]Horace Rollins MD Work Phone: noLee[facility] Summit HospitalYrsafisoxq60-75-4357 09:30-0500Body .2 cmBrittany López MILKER MACHINE Work Phone: [facility] CenterSzcmyegzmr63-81-5178 09:30-0500Body mass index (BMI) [Ratio]38.53 kg/r6Ysexudda López MILKER MACHINE Work Phone: [facility] CenterOrzorfhuvz18-69-4007 09:30-0500Body temperature 96.3 [degF]Ashanti López MILKER MACHINE Work Phone: noLee's Summit HospitalHehafoquor14-22-1039 09:30-0500Body .58 kgBrittany López MILKER MACHINE Work Phone: noLee's Summit HospitalFjhgvkogmk79-63-4739 09:30-0500Diastolic blood zysmjiai05 mm[Hg]Ashanti López MILKER MACHINE Work Phone: noLee's Summit HospitalEtsspmzply85-64-1906 09:30-0500Heart mtdj296 /min Ashanti López MILKER MACHINE Work Phone: noLee's Summit HospitalPuzoosinno75-52-9150 09:30-0500Respiratory rate16 /minBrittany López MILKER MACHINE Work Phone: noLee's Summit HospitalAmkbtrzwbr70-71-8799 09:30-7985KsA1% (BldA) [Mass fraction]96 %Ashanti López MILKER MACHINE Work Phone: [facility] CenterOveqbcoquq44-88-9260 09:30-0500Systolic blood hiobcyzc146 mm[Hg]Ashanti López NP Work Phone: [facility] CenterGnbucslndj04-12-3481 12:58-0500Body dutrgp425.2 Rodri Xie MD Work Phone: [facility] CenterUzrpefnmxd09-68-5880 12:58-0500Body mass index (BMI) [Ratio]40.72 kg/p7ZjgpwZaria Xie MD Work Phone: [facility] CenterSyhtjrksnv33-28-6954 12:58-0500Body ixbpok274.94 kgZaria Xie MD Work Phone: [facility] CenterEbuyguzxat37-04-9718 12:58-0500Diastolic blood ihewwhmi97 mm[Hg]Zaria Xie MD Work Phone: [facility] CenterNfmehbqsoa16-62-2746 12:58-0500Heart rate82 /min Zaria Xie MD Work Phone: [facility] CenterUratnohpnw58-23-8676 12:58-0500Respiratory rate18 /minZaria Xie MD Work Phone: [facility] CenterJbzailugtq14-81-6059 12:58-0500Systolic blood sfnkybmf378 mm[Hg]Zaria Xie MD Work Phone: [facility] CenterLymtsewrdt68-30-4442 08:31-0500Body zilguf042.2 cmAnthony Santana DPM Work Phone: [facility] CenterErbwwwdsdc48-58-6548 08:31-0500Body mass index (BMI) [Ratio]40.88 kg/q6ZepykzojAnthony Santana DPM Work Phone: [facility] CenterCxdgltceqk36-32-7583 08:31-0500Body .39 kgAnthony Santana DPM Work Phone: noLee's Summit HospitalYcjrhdwpuc70-17-4162 08:31-0500Respiratory rate16 /minAnthony Santana DPM Work Phone: [facility] CenterOklgrctvqz85-21-0121 08:53-0500Body fhjyup741.2 cmAshanti Perezpatrick MILKER MACHINE Work Phone: [facility] CenterPehjhwrnvc16-21-7878 08:53-0500Body mass index (BMI) [Ratio]40.88 kg/v6YkztnzxtAshanti Perezpatrick MILKER MACHINE Work Phone: [facility] CenterOrxotcuauy48-72-1767 08:53-0500Body temperature 97.2 [degF]Ashanti Perezpatrick MILKER MACHINE Work Phone: [facility] CenterHobbzfbnnm10-55-2835 08:53-0500Body hcikqp602.39 kgAshanti Perezpatrick MILKER MACHINE Work Phone: [facility] CenterIzxndqznhj60-15-6248 08:53-0500Diastolic blood mm[Hg]Ashanti López MILKER MACHINE Work Phone: [facility] CenterZvbyzoecjg06-40-3039 08:53-0500Heart rate97 /min Ashanti Coffeyzpatrick MILKER MACHINE Work Phone: [facility] CenterOkqijfvqgw90-59-7992 08:53-0500Respiratory rate16 /minAshanti Coffeyzpatrick MILKER MACHINE Work Phone: [facility] CenterCwbfcfidpe40-78-4894 08:53-6526OnS2% (BldA) [Mass fraction]99 %Ashanti Coffeyzpatrick MILKER MACHINE Work Phone: [facility] CenterTcrptfqsct48-86-5731 08:53-0500Systolic blood mkbovwqz757 mm[Hg]Ashanti Coffeyzpatrick MILKER MACHINE Work Phone: [facility] CenterEhtvhuuazk13-23-2027 11:19-0400Diastolic blood pbiacnpj53 mm[Hg]AMITA FERNANDEZ [facility]10-15-2024 11:19-0400Heart rate92 /minAMITA FERNANDEZ [facility]10-15-2024 11:19-0400Respiratory rate16 /minAMITA FERNANDEZ [facility]10-15-2024 11:19-0400Systolic blood oeinsljv759 mm[Hg]AMITA FERNANDEZ [facility]10-03-2024 13:21-0400Body qxweki689.2 cmAnthony Santana DPM Work Phone: [facility] CenterZabnltqmai55-21-0910 13:21-0400Body mass index (BMI) [Ratio]41.82 kg/v0VsmsvpszAnthony Santana DPM Work Phone: [facility] CenterAilovzjbay45-52-0650 13:21-0400Body .11 kgAnthoyn Santana DPM Work Phone: [facility] CenterOcryiqnnaf76-88-9238 13:21-0400Diastolic blood vtjichhe69 mm[Hg]Anthony Santana DPM Work Phone: [facility] CenterToqvvoitvp02-58-7650 13:21-0400Heart rate75 /min Anthony Santana DPM Work Phone: [facility] CenterEozemvhlll11-99-9413 13:21-0400Respiratory rate17 /minAnthony Santana DPM Work Phone: [place] [address]Gcwuqknkbj07-91-9756 13:21-0400Systolic blood dpvregle970 mm[Hg]Anthony Santana DPM Work Phone: [facility] CenterMamyshuzgn16-18-5705 09:01-0400Body umhraz975.2 cmAshanti Bargerk MILKER MACHINE Work Phone: [facility] CenterCnxlbjhlok04-16-7767 09:01-0400Body mass index (BMI) [Ratio]41.82 kg/u7Zwrpnypd López MILKER MACHINE Work Phone: [facility] CenterDgyxfifeyw44-59-1381 09:01-0400Body temperature 98.1 [degF]Ashanti Perezpatrick MILKER MACHINE Work Phone: [facility] CenterVzmgzrywuw44-49-5054 09:01-0400Body etieto857.11 kgAshanti Bustostrick MILKER MACHINE Work Phone: [facility] CenterVfyvvusbti98-95-6321 09:01-0400Diastolic blood etpryqrd22 mm[Hg]Ashanti Perezpatrick MILKER MACHINE Work Phone: [facility] CenterSvkedzujqk63-70-8963 09:01-0400Heart rate94 /min Ashanti López MILKER MACHINE Work Phone: [facility] CenterPxiyrctqev87-21-7113 09:01-2998EwP3% (BldA) [Mass fraction]95 %Ashanti Coffeyzpatrick MILKER MACHINE Work Phone: [facility] CenterAfslzuxaey51-94-1792 09:-0400Systolic blood jtwiobys103 mm[Hg]Ashanti Perezpatrick MILKER MACHINE Work Phone: [place] [address]Jaqxsjfqsv72-14-0055 10:32-0400Blood Pressure LocationJENNIFER REBECCA [facility]09-19-2024 10:32-0400Body okaxmdxqjoy22.6 [degF]AMITA REBECCA [facility]09-19-2024 10:32-0400Diastolic blood jkdiubuz25 mm[Hg]AMITA REBECCA [facility] [place] [address]-19-2024 10:32-0400Heart rate80 /minJENNIFER REBECCA [facility] [place] [address]-19-2024 10:32-0400Respiratory rate16 /minJENNIFER REBECCA [facility] [place] [address]-19-2024 10:32-0400Systolic blood yolkhdwk251 mm[Hg]AMITA REBECCA [facility]08-22-2024 09:04-0400Body qndusx851.2 cmBrbhavani López MILKER MACHINE Work Phone: [facility] CenterKehnfnerts60-65-0063 09:04-0400Body mass index (BMI) [Ratio]41.19 kg/h1Iunbjbsd López MILKER MACHINE Work Phone: [facility] CenterRnveobwsbo27-94-5250 09:04-0400Body temperature 99.19 [degF]Ashanti López MILKER MACHINE Work Phone: [facility] CenterIfebvpigog23-97-8977 09:04-0400Body fgprmu330.3 kgBrbhavani López MILKER MACHINE Work Phone: [facility] CenterMrhdidnevs18-92-1714 09:04-0400Diastolic blood dyoxbntu38 mm[Hg]Ashanti López MILKER MACHINE Work Phone: [facility] CenterIriacueife90-75-8972 09:04-0400Heart kujv564 /min Ashanti López MILKER MACHINE Work Phone: noLee's Summit HospitalComment on above:97% T629-43-8571 09:04-0400Systolic blood ifuqwrtb529 mm[Hg]Ashanti López MILKER MACHINE Work Phone: [facility] CenterIjadpijzfz38-73-4826 14:53-0400Blood Pressure LocationJENNIFER REBECCA [facility]05-03-2023 14:53-0400Diastolic blood ltslwbiz39 mm[Hg]AMITA REBECCA [facility]05-03-2023 14:53-0400Heart rate68 /minJENNIFER REBECCA [facility]05-03-2023 14:53-0400Respiratory rate16 /Elvia FERNANDEZ [facility]05-03-2023 14:53-0400Systolic blood mistuxak497 mm[Hg]AMITA FERNANDEZ [facility]07-05-2022 10:08-0400Blood Pressure Titi Almendarez Jr. [facility] 07-05-2022 10:08-0400Diastolic blood mm[Hg] Tee Almendarez Jr. [facility] 07-05-2022 10:08-0400Heart rate81 /Lonny Almendarez Jr. [facility] 07-05-2022 10:08-0400Respiratory rate16 /Lonny Almendarez Jr. [facility] 07-05-2022 10:08-0400Systolic blood vntmoqmg397 mm[Hg] Tee Almendarez Jr. [facility] 05-03-2022 09:32-0400Blood Pressure Titi Almendarez Jr. [facility] 05-03-2022 09:32-0400Diastolic blood rgyrgvbz81 mm[Hg] Tee Almendarez Jr. [facility] 05-03-2022 09:32-0400Heart rate97 /Lonny Almendarez Jr. [facility] 05-03-2022 09:32-0400Respiratory rate18 /Lonny Almendarez Jr. [facility] 05-03-2022 09:32-0400Systolic blood zqlhhlka748 mm[Hg] Tee Almendarez Jr. [facility] Encounters Encounter DateEncounter TypeCare ProviderFacilityStart: 05-19-2025 End: 74-12-0376mgnzqwveduHfvvecm M Hoy MD Work Phone: -[facility] ClydeStart: 05-19-2025 End: 97-29-1553Hwcndcx encounter procedureJehumera Meredith DO-[facility] Work Phone: Start: 16-72-3371Jehiwbqphr Yuri Pozo MDNEW [facility] CredibleStart: 86-81-0563yvoubzsfnsVntcqkmlroe Abdelaziz [facility] 04-21-2025 End: 21-29-4174Jbevyp flowsMaykel Xie MD Work Phone: [facility] EndocrinologyStart: 04-21-2025 End: 28-84-1224Szwpnn Irina Xie MD Work Phone: [facility] EndocrinologyStart: 04-21-2025 End: 67-60-5465Kjlrsz outpatient visit 25 minutesZaria Xie MD Work Phone: [facility] EndocrinologyComment on above:Type II diabetes mellitus with complication (HCC) (Primary Dx); Vitamin D deficiency; Insulin long-term use (HCC); Encounter for dietary consultationStart: 04-21-2025 End: 87-44-7792kmgqqahigxVAYIJ F SABBAGHNot AvailableStart: 04-16-2025 End: 86-26-6585xtbgqrwzlxUkujbui M Hoy MD Work Phone: [facility] Work Phone: Start: 04-16-2025 End: 33-24-8954Ppatjmh encounter procedureJehumera Harper DO-[facility] Work Phone: Start: 25-86-4370Lznvarspst RecurringKota Pozo MD- CredibleStart: 14-59-8252Lgv-patient / Non-visitMardread Linda MD -[facility] Work Phone: Start: 03-05-2025 End: 67-21-7271Ddvnmgazg encounterHorace Rollins MD Work Phone: [facility] CWM FMStart: 02-03-2025 End: 39-39-5733Ufzwgkgbp Result EncounterHorace Rollins MD Work Phone: noms External Department UnsolicitedStart: 02-03-2025 End: 93-43-8852Ozpcdyhsd Result EncounterHorace Rollins MD Work Phone: noms External Department UnsolicitedStart: 01-19-2025 End: 86-08-1291Rwtxkz outpatient visit 15 minutesHorace Rollins MD Work Phone: [facility] CWM FMComment on above:Neck pain (Primary Dx) Start: 01-19-2025 End: 63-83-5534Vwwlci Saurav Brown MD Work Phone: noms CI ENTStart: 01-19-2025 End: 26-78-0497Oroglpherman Brown MD Work Phone: [facility] CI ENTStart: 01-19-2025 End: 03-69-7125DkndugTyvaah H Timmis MD Work Phone: noms CI ENTComment on above:Other infective chronic otitis externa of both earsStart: 01-19-2025 End: 14-08-6904Tjdnox outpatient visit 25 minutesChuckie Brown MD Work Phone: [facility] ENTComment on above:Other infective chronic otitis externa of both ears (Primary Dx); Other specified hearing loss of left ear, unspecified hearing status on contralateral side; Perforation of left tympanic membraneStart: 12-01-2024 End: 15-25-5566Qwywxn Esthela Rollins MD Work Phone: [facility] C[facility] FMStart: 12-01-2024 End: 18-29-7744Ihkndlfaith Rollins MD Work Phone: [facility] FMStart: 12-01-2024 End: [id number] NADERERNot AvailableStart: 12-01-2024 End: 30-95-9585Ihjjwx outpatient visit 25 minutesHorace Rollins MD Work Phone: NOAK CWM FMComment on above:Chronic obstructive pulmonary disease, unspecified COPD type (CMS/HCC) (Primary Dx); Undifferentiated schizophrenia (CMS/HCC); Class 3 severe obesity due to excess calories with serious comorbidity and body mass index (BMI) of40.0 to 44.9 in adult; Type 2 diabetes mellitus with hyperglycemia, without long-term current use of insulin (CMS/HCC)Start: 11-20-2024 End: 96-67-3001Zjqnmuueq encounterZaria Xie MD Work Phone: NOMS ENDOCRINOLOGYComment on above:Medication ProblemStart: 08-26-2024 End: 38-12-8234Hptplkrje encounterZaria Xie MD Work Phone: noms ENDOCRINOLOGYComment on above:Medication ProblemStart: 08-19-2024 End: 79-87-4799Tezldj flowsheetKeshagenoveva BustosLópez MILKER MACHINE Work Phone: N[facility]S CW FMStart: 08-19-2024 End: 01-52-4199Nsaiht flowsheetCasperclairegenoveva PerezLópez MILKER MACHINE Work Phone: noms CWM FMStart: 08-19-2024 End: 32-16-6295Sqrshd outpatient visit 10 minutesAshanti Bustostrick MILKER MACHINE Work Phone: noms [facility] FMComment on above:Type II diabetes mellitus with complication (CMS/HCC) (Primary Dx); Chronic obstructive pulmonary disease, unspecified COPD type ([facility])Start: 08-19-2024 End: 79-96-7464biccbwhadtLUQUBLRCBushra PEREZot AvailableStart: 07-28-2024 End: 83-67-4859Svmpib Irina Xie MD Work Phone: NOMS ENDOCRINOLOGYStart: 07-28-2024 End: 75-69-0011Amfdgk Irina Xie MD Work Phone: noms ENDOCRINOLOGYStart: 07-28-2024 End: 09-13-1843Kwuzol outpatient new 45 minutesZaria Xie MD Work Phone: noms ENDOCRINOLOGYComment on above:Type II diabetes mellitus with complication (CMS/HCC) (Primary Dx); Vitamin D deficiency; Insulin long-term use (CMS/HCC); Encounter for dietary consultation; Class 3 severe obesity due to excess calories with serious comorbidity and body mass index (BMI) of40.0 to 44.9 in adult (CMS/HCC)Start: 07-28-2024 End: 41-54-2542gibsxumruoZWTEJJacqueline Edward AvailableStart: 07-24-2024 End: 43-09-8630Pqdipv Toya Santana DPM Work Phone: noms PODIATRYStart: 07-24-2024 End: 79-61-8467Xxolxwfaith Santana DPM Work Phone: noms CI PODIATRYStart: 07-24-2024 End: 79-74-4178Mscjnoo encounter procedureAnthony Bigg Max DPM Work Phone: noms CI PODIATRYComment on above:Diabetes mellitus due to underlying condition with diabetic 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, unspecified whether superintendent terminal insulin use ([facility]) (Primary Dx); Pain due to onychomycosis of toenails of both feet; Venous insufficiencyStart: 07-24-2024 End: 13-12-7702wercndcntuJUDWEHZQ A BROWNNot AvailableStart: 07-03-2024 End: 83-32-1278Jpysjp OnlyBrclaireany López MILKER MACHINE Work Phone: noMS CWM FMComment on above:Type II diabetes mellitus with complication ([facility])Start: 07-02-2024 End: 78-39-2573Ueepft flowsheetBrittany López MILKER MACHINE Work Phone: noMS CWM FMStart: 07-02-2024 End: 57-38-9354Ucnlkr flowsheetBrittany López MILKER MACHINE Work Phone: noms CWM FMStart: 07-02-2024 End: 55-14-2617Mmiued outpatient visit 15 minutesBrittany López MILKER MACHINE Work Phone: noms CWM FMComment on above:Type 2 diabetes mellitus without complication, with long-term current use of insulin ([facility]); Type II diabetes mellitus with complication ([facility])Start: 07-02-2024 End: 02-47-2098vqtmlriozzPEVYKEUB FITZPATRICKNot AvailableStart: 06-05-2024 End: 63-86-1715Iponhy OnlyBrittany López MILKER MACHINE Work Phone: noMS CWM FMComment on above:Type II diabetes mellitus with complication ([facility]/HCC)Start: 05-29-2024 End: 66-92-9708Ajgoiz OnlyBrittany López MILKER MACHINE Work Phone: noms CWM FMComment on above:Type II diabetes mellitus with complication (CMS/HCC) (Primary Dx)Start: 05-28-2024 End: 33-49-8638Dfcyuffad encounterClau [facility] Comment on above:NEW PATIENT REFERRALStart: 05-19-2024 End: 27-53-8528Oxmfypzsa encounterAshanti López MILKER MACHINE Work Phone: noms CWM FMStart: 04-29-2024 End: 76-25-0994yjclmdqxotMMGDPWIY E PERRYFacility:EU BellevueStart: 04-29-2024 End: 45-60-4354Wwjjxwq encounter procedureJENNIFER E REBECCA [facility] start: 04-23-2024 End: 34-09-3648Cnxedo Rocky López MILKER MACHINE Work Phone: noms CWM FMComment on above:Type II diabetes mellitus with complication (CMS/HCC) (Primary Dx)Start: 04-17-2024 End: 50-65-5982Nruxkt flowsFernando Pride Brown DPM Work Phone: noms CI PODIATRYStart: 04-17-2024 End: 13-39-1369Mzosmm flowsFernando Pride Brown DPM Work Phone: noms CI PODIATRYStart: 04-17-2024 End: 50-73-3709Pvqxcvt encounter procedureAnthony Pride Brown DPM Work Phone: noms CI PODIATRYComment on above:Diabetes mellitus due to underlying condition with diabetic 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, unspecified whether superintendent terminal insulin use (CMS/HCC) (Primary Dx); Venous insufficiency; Pain due to onychomycosis of toenails of both feetStart: 04-16-2024 End: 87-03-8998Skeevg Rocky López MILKER MACHINE Work Phone: noms CWM FMComment on above:Type II diabetes mellitus with complication (CMS/HCC) (Primary Dx)Start: 04-08-2024 End: 43-15-0783Ewtclo OnlyBrbhavani López MILKER MACHINE Work Phone: noms CWM FMComment on above:Acute swimmer's ear of both sides (Primary Dx); Anal pruritusType II diabetes mellitus with complication (CMS/HCC) (Primary Dx) Start: 04-07-2024 End: 31-78-2459Vyslvo flowsheetBrittany López MILKER MACHINE Work Phone: noms CWM FMStart: 04-07-2024 End: 12-74-6739Djatre flowsheetBrittany López MILKER MACHINE Work Phone: noms CWM FMStart: 04-07-2024 End: 67-54-0576Roucnq outpatient visit 15 minutesBrbhavani López MILKER MACHINE Work Phone: noms CWM FMComment on above:Type 2 diabetes mellitus without complication, with long-term current use of insulin (CMS/HCC) (Primary Dx); Type II diabetes mellitus with complication (CMS/HCC); Anal pruritus; Acute otitis externa of both ears, unspecified typeStart: 04-03-2024 End: 31-33-3512Eikaduxhh Result EncounterBrittany López MILKER MACHINE Work Phone: noms External Department UnsolicitedStart: 04-03-2024 End: 34-80-6987Gdnjjfcuw Result EncounterBrittany López MILKER MACHINE Work Phone: noms External Department UnsolicitedStart: 04-03-2024 End: 84-97-0807mlvbteebamONHHGRDN E PERRYFacility:EU BellevueStart: 04-03-2024 End: 66-97-4365Afavyjb encounter procedureJENNIFER E REBECCA [facility] start: 03-06-2024 End: 05-34-5103Zakdsh flowsheetAshanti López MILKER MACHINE Work Phone: noms CWM FMStart: 03-06-2024 End: 96-80-8466Ymjvfa flowsMatt López MILKER MACHINE Work Phone: noms CWM FMStart: 03-06-2024 End: 42-76-7091Ibqakh outpatient visit 25 minutesBrbhavani López MILKER MACHINE Work Phone: noms CWM FMComment on above:Hyperlipidemia, unspecified hyperlipidemia type (CMS/HCC) (Primary Dx); Chronic obstructive pulmonary disease, unspecified COPD type (CMS/HCC); Type 2 diabetes mellitus without complication, with long-term current use of insulin (CMS/HCC)Start: 03-05-2024 End: 26-72-0358HruhtuWfisjqcf Fitzpatrick MILKER MACHINE Work Phone: noms CWM FMStart: 11-28-2023 End: 81-86-5801Vcewomful Result EncounterSnicolas Silva MD Work Phone: noms External Department UnsolicitedStart: 11-28-2023 End: 32-63-8675Lvsgasgke Result EncounterSnicolas Silva MD Work Phone: noms External Department UnsolicitedStart: 11-20-2023 ambulatoryJENNIFER E PERRYFacility:EU DomenicaevueStart: 08-06-2023 End: 39-14-8197tpdxnxliihWJXDGA FAWWADNhaja AvailableStart: 06-26-2023 End: 29-89-1049chfdbbahqoDKLHUG FAWWADNot AvailableStart: 11-24-2022 End: 26-74-7032cdtmcijficHHOMXK H FAWWADFacility:J7Euces: 11-15-2022 End: 56-81-0527Yvsrueg encounter procedureJENNIFER E REBECCA [facility] start: 04-18-2022 End: 48-06-1649ysvzwzjgwtEALFJO H FAWWADFacility:X5Vcdxo: 03-24-2022 End: 74-31-6785ncibhlygveVJCSHH H FAWWADFacility:E1Okypm: 03-11-2022 End: 60-96-8971xlcmoqtdzyYKIZOK H FAWWADFacility:C6Xrnsb: 90-80-7537pgabtxkhdc STONE H FAWWADFacility:V3Gcjad: 01-17-2022 End: 93-75-3290Eeqxxqr encounter procedureTee Almendarez Jr. [facility] start: 01-09-2022 End: 66-06-8331fxgixlffccRFUNHZ H JUAN LUISWWADFacility:T6Fvorx: 12-08-2021 End: 38-40-7473xjjmihhwjuFX TEE LopezFacility:L5Wudkd: 11-15-2021 End: 18-15-8107Ijzzbzc encounter procedureTee Almendarez Jr. [facility] start: 04-28-2021 End: 02-36-0303nktbnfvkvcOSQHBCA PROVIDERFacility:METROHealthStart: 01-29-2017 End: 90-06-4054Jdrxemfmeh and management of inpatientKUL B [facility] Procedures DateProcedureProcedure DetailPerforming ClinicianStart: 59-25-8821Vyzg bld gluc mntr dev cleared fda spec home useZaria Xie MD Work Phone: Start: 88-84-7015AI CERVICAL SPINE 2-3VMpoonam Rollins MD Work Phone: Start: 21-63-7890Xgfe bld gluc mntr dev cleared fda spec home useZaria Xie MD Work Phone: Start: 72-62-6718Uxabgynzkn glycosylated f6wZuadktynbhavani López MILKER MACHINE Work Phone: Start: 61-60-2166ZJK HEMOGLOBIN M6DKvmfuqbsbhavani López MILKER MACHINE Work Phone: Start: 67-07-6632KU LUMBAR SPINE 2 OR 3VSnicolas Silva MD Work Phone: Start: 91-16-1408JIZNFATWJ PATIENTKUL GUPTAStart: 00-75-7489MHAGXJMVAMLXR METABOLIC PANELKUL GUPTAStart: 61-24-4268Gxonybxhkzf urinalysisKUL GUPTAStart: 51-65-6334FvqihtrghpDFX GUPTAStart: 51-06-5369KHGFJ DRUG SCREENKUL PTAStart: 89-71-6918JQC WITH AUTO DIFFERENTIALKUL GUPTAStart: 54-85-6995AXJGUWSUZICCO METABOLIC PANELKUL GUPTAStart: 15-39-7073LNAA CODEKUL GUPTAStart: 47-47-8848EL CONSULT TO HISTORY AND PHYSICALKUL GUPTAStart: 40-37-2517PRJHVVG STATUS (DIRECT)KUL VIDAPTAStart: 14-77-6493OUEX GENERALKHERMELINDO PIERRE None (qualifier value)Tee Almendarez Jr. Plan of Treatment DateCare ActivityDetailAuthorStart: 29-55-6744Srldgnwqo for malignant neoplasm of colonNOMS HealthcareStart: 98-78-9087Hhpcgqqpvd A1c measurementDiabetes: Hemoglobin E2YHBBJ HealthcareStart: 07-23-2025 End: 74-40-0429Acvcdpe encounter ffymxapxi97/08/2026 11:20 AM EST Office Visit [facility] [place] [facility] [address] [place] [address] Zaria Xie MD [address] [place] [address] NOMLupis Pelaez EndocrinologyStart: 06-03-2025 End: 78-02-7024Chosacv encounter xwhfsxffu54/19/2025 9:00 AM EST Office Visit [facility] FM [address] [place] [address] Horace Rollins MD [address] [place] [address] [facility] FMStart: 04-21-2025 End: 975630-cpykttjhodckfs D3 [Mass/volume] in Serum or PlasmaVitamin D 25 hydroxy Total Lab Routine Type II diabetes mellitus with complication (HCC) Expected: 04/21/2025 (Approximate), Expires: 04/21/2026[facility] HealthcareComment on above:Expected: 04/21/2025 (Approximate), Expires: 04/21/2026Start: 04-21-2025 End: 75-00-0271I-peptideC-peptide Lab Routine Type II diabetes mellitus with complication (HCC) Expected: 04/21/2025 (Approximate), Expires: 04/21/2026[facility] Work Phone: Comment on above:Expected: 04/21/2025 (Approximate), Expires: 04/21/2026Start: 04-21-2025 End: 17-09-4834Zvuhm 1996 panel - Serum or PlasmaLipid panel Lab Routine Type II diabetes mellitus with complication (HCC) Expected: 04/21/2025 (Approximate), Expires: 04/21/2026[facility] HealthcareComment on above:Expected: 04/21/2025 (Approximate), Expires: 04/21/2026Start: 04-21-2025 End: 46-03-5092Srztnzehbpjw/Creatinine panel in random UrineMicroalbumin / creatinine urine ratio Lab Routine Type II diabetes mellitus with complication (HCC)Expected: 04/21/2025 (Approximate), Expires: 04/21/2026[facility] Comment on above:Expected: 04/21/2025 (Approximate), Expires: 04/21/2026Start: 04-21-2025 End: 88-06-8815Dicav function panelRenal function panel Lab Routine Type II diabetes mellitus with complication (HCC) Expected: 04/21/2025 (Approximate), Expires: 04/21/2026[facility] HealthcareComment on above:Expected: 04/21/2025 (Approximate), Expires: 04/21/2026Start: 04-21-2025 End: 17-59-8161Ybmkenu encounter jxsbveeim37/07/2025 10:50 AM EDT Office Visit [facility] [place] [facility] [address] [place] [address] Zaria Xie MD [address] [place] [address] Type II diabetes mellitus with complication (HCC)NOMLupis Pelaez EndocrinologyComment on above:Type II diabetes mellitus with complication (HCC)Start: 03-24-2025 End: 53-24-0554Hqgkivl encounter procedureNOMS CI ENTStart: 03-19-2025 End: 90-63-5461Xaoskqq encounter /04/2025 10:20 AM EDT Office Visit [facility] [place] [facility] [address] [place] [address] Zraia Xie MD [address] [place] [address] NOMLupis Pelaez EndocrinologyStart: 76-12-8030Jinizvvdd vaccinationNOMS HealthcareStart: 02-17-2025 End: 87-47-5611Atkwlqw encounter ylfcypygb00/05/2025 1:50 PM EDT Office Visit [facility] [address] [place] [phone] Zaria Xie MD [address] [place] [address] NOMS ENDOCRINOLOGYStart: 02-10-2025 End: 19-91-2313Kblyvio encounter xsgspozdw26/29/2025 2:20 PM EDT Office Visit [facility] [address] [facility] [address] [place] [address] Chuckie Brown MD [address] [facility] [address] [place] [address] NOMS ENTStart: 56-07-5137Cxiwqdgqva A1c measurement Diabetes: Hemoglobin T6LNKEC HealthcareStart: 01-19-2025 End: 17-15-1415Ehbpgnb encounter rjdvionsv51/07/2025 2:45 PM EDT Office Visit [facility] [address] [place] [address] Horace Rollins MD [address] [place] [address] [facility] FMStart: 01-19-2025 End: 26-36-0187ZS Cervical spine 2 or 3 ViewsXR cervical spine 2 or 3 views Imaging Routine Neck pain Expected: 01/19/2025, Expires: 01/19/2026[facility] Work Phone: Comment on above:Expected: 01/19/2025, Expires: 01/19/2026Start: 12-17-2024 End: 01-89-6093Qrtviyz encounter blygfmuem62/04/2025 10:00 AM EDT Office Visit [facility] [address] [place] [id number] Zaria Xie MD [address] [place] [address] NOMS ENDOCRINOLOGYStart: 13-33-4208Phqndwfy screeningDiabetes: Retinopathy ScreeningNODC HealthcareStart: 12-01-2024 End: 84-96-9681Lmrwykz encounter euvmvhivu08/19/2025 8:45 AM EDT Office Visit [facility] FM [address] [place] [address] Horace Rollins MD [address] [place] [address] [facility] FMStart: 10-27-2024 End: 59-32-4911Vsadiwc encounter zztxuobfq80/14/2025 1:10 PM EDT Office Visit [facility] [address] [place] [phone] Zaria Xie MD [address] [place] [address] NOMS ENDOCRINOLOGYStart: 62-84-0841Rnxytpoqmc A1c measurementDiabetes: Hemoglobin L0DHLDL HealthcareStart: 10-14-2024 End: 00-58-0664Mamrjpp encounter procedureNOPURCELL [facility] FMStart: 10-02-2024 End: 43-27-0385Uusetti encounter cwudlvixn48/20/2025 8:30 AM EDT Office Visit [facility] [address] [facility] [address] [place] [address] Anthony Santana, DPM [address] [facility] [address] [place] [address] NOMS [facility] PODIATRYStart: 62-78-4642Amqyfxbgbn A1c measurementDiabetes: Hemoglobin Y0CVDCJ HealthcareStart: 09-24-2024 End: 74-39-5611Fdndvhm encounter uzlhqhjdo91/12/2025 11:00 AM EDT Consult [facility] [address] [place] [address] Zaria Xie MD [address] [place] [address] NOMS ENDOCRINOLOGYStart: 08-19-2024 End: 52-18-0734Jtawvcc encounter eolpsbaef85/04/2025 9:30 AM EST Office Visit [facility] [address] [place] [address] Ashanti López, MILKER MACHINE [address] [place] [address] [facility] FMComment on above:ArrivedStart: 08-06-2024 End: 46-63-5197Teekgeo encounter bypgoylno00/22/2025 9:00 AM EST Office Visit [facility] [address] [place] [address] Ashanti López, MILKER MACHINE [address] [place] [address] NOMS M FMStart: 01-17-2025Medicare Annual Wellness (AWV) Medicare Annual Wellness (AWV)[facility] HealthcareStart: 07-28-2024 End: 445818-xivhftiaiqkprn D3 [Mass/volume] in Serum or PlasmaVitamin D 25 hydroxy Total Lab Routine Type II diabetes mellitus with complication (CMS/HCC) Expected: 07/28/2024 (Approximate), Expires: 07/28/2025[facility] HealthcareComment on above:Expected: 07/28/2024 (Approximate), Expires: 07/28/2025Start: 07-28-2024 End: 90-18-8361R-peptideC-peptide Lab Routine Type II diabetes mellitus with complication (CMS/HCC) Expected: 07/28/2024 (Approximate), Expires: 07/28/2025 [facility] Work Phone: Comment on above:Expected: 07/28/2024 (Approximate), Expires: 07/28/2025Start: 07-28-2024 End: 96-74-2832Kyzjg 1996 panel - Serum or PlasmaLipid panel Lab Routine Type II diabetes mellitus with complication (CMS/HCC) Expected: 07/28/2024 ( Approximate), Expires: 07/28/2025[facility] HealthcareComment on above:Expected: 07/28/2024 (Approximate), Expires: 07/28/2025Start: 07-28-2024 End: 91-91-5611Fszspwrhbzuv/Creatinine panel in random UrineMicroalbumin / creatinine urine ratio Lab Routine Type II diabetes mellitus with complication ([facility]) Expected: 07/28/2024 (Approximate), Expires: 07/28/2025[facility] Comment on above:Expected: 07/28/2024 (Approximate), Expires: 07/28/2025Start: 07-28-2024 End: 93-01-3354Zlifl function panelRenal function panel Lab Routine Type II diabetes mellitus with complication ([facility]) Expected: 07/28/2024 (Approximate), Expires: 07/28/2025[facility] HealthcareComment on above:Expected: 07/28/2024 (Approximate), Expires: 07/28/2025Start: 07-28-2024 End: 56-83-3499Hydjbyt encounter procedureNOMISSOU[facility] ENDOCRINOLOGYComment on above: Type II diabetes mellitus with complication ([facility])Start: 07-24-2024 End: 93-14-1999Tfskzci encounter procedureNOMS MILADIS PODIATRYComment on above: Diabetes mellitus due to underlying condition with diabetic 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, unspecified whether superintendent terminal insulin use ([facility]) (Primary Dx); Pain due to onychomycosis of toenails of both feet; Venous insufficiencyStart: 07-02-2024 End: 98-54-6079Fqbgomh encounter procedureNONORTHEASTERN [facility]ALTH [facility] FMComment on above:Arrived Start: 12-08-9205Ezbmy screening for proteinDiabetes: Urine Protein Screening [facility] HealthcareStart: 06-18-2024 End: 86-21-9840Vrdexuj encounter /04/2024 10:30 AM EST Consult [facility] [address] [place] [address] Zaria Xie MD [address] [place] [address] NOMS ENDOCRINOLOGYStart: 05-20-2024 End: 06-49-9503Egudtat encounter xygflwosn86/05/2024 9:40 AM EST Office Visit [facility] [address] [place] [address] Chuckie Brown MD [address] [place] [address] NOMS CI ENTStart: 04-17-2024 End: 16-03-7937Zlyesei encounter procedureNOMS CI PODIATRYComment on above: Diabetes mellitus due to underlying condition with diabetic 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, unspecified whether senior living insulin use (CMS/HCC) (Primary Dx); Onychomycosis; Toe pain, bilateral; Venous insufficiencyStart: 04-07-2024 End: 49-52-0122Lsrrdcxbbc A1c/Hemoglobin.total in BloodHemoglobin A1c Lab Routine Type II diabetes mellitus with complication (CMS/HCC) Expected: 04/07/2024 (Approximate), Expires: 04/07/2025[facility] Work Phone: Comment on above:Expected: 04/07/2024 (Approximate), Expires: 04/07/2025Start: 04-07-2024 End: 46-68-4040Ucqukmk encounter procedureNODC CWM FMComment on above:Type 2 diabetes mellitus without complication, with long-term current use of insulin (CMS/HCC) (Primary Dx)Start: 51-34-5354YbkxtihzhWellmont Health System Start: 03-06-2024 End: 74-44-8259Urrxufiaqi A1c/Hemoglobin.total in BloodHemoglobin A1c Lab Routine Type 2 diabetes mellitus without complication, with long-term current use of insulin (CMS/HCC) Expected: 03/06/2024 (Approximate), Expires: 03/06/2025 [facility] Work Phone: Comment on above:Expected: 03/06/2024 (Approximate), Expires: 03/06/2025Start: 03-06-2024 End: 57-22-9430Czudncj encounter procedureNODC CWM FMComment on above: Hyperlipidemia, unspecified hyperlipidemia type (CMS/HCC) (Primary Dx); Chronic obstructive pulmonary disease, unspecified COPD type (CMS/HCC); Type 2 diabetes mellitus without complication, with long-term current use of insulin (CMS/HCC)Start: 95-26-5675Zgqzfvayxk A1c measurementDiabetes: Hemoglobin H0QNGAVNortheast Regional Medical CenterStart: 61-36-0972Rbhuskewbwelji of varicella zoster vaccine Zoster (Shingles) Vaccine (1 of 2)[facility] SystemStart: 1991 DTaP,Tdap and Td Vaccines (1 - Tdap)DTaP,Tdap and Td Vaccines (1 - Tdap) [facility] SystemStart: 21-06-8108Qiuin BMI ScreeningAdult BMI Screening [facility] SystemStart: 33-43-6650Hvsumqzd foot examinationDiabetic Foot ExamSumma Health [facility] SystemStart: 66-01-8116Gcpdnjcrzg ScreeningDepression ScreeningECU Health Edgecombe Hospitaltart: 28-61-1902Vjutjfs ScreeningTobacco ScreeningSumma Health [facility] SystemStart: 91-40-8964Fyyzkfio screeningDiabetic Ophthalmology ExamECU Health Edgecombe Hospitaltart: 51-25-0706Czckylmel for malignant neoplasm of colonSPANISH FORK [facility]OS[facility]ITAL HealthcareStart: 93-88-6302Yscernaub for malignant neoplasm of lungLung Cancer Screening Shared Decision MakingNortheast Regional Medical CenterComprehensive metabolic 2000 panel - Serum or PlasmaKindred Hospital Bay Area-St. Petersburg Immunizations Immunization DateImmunizationNotesCare XwtqrhvdWtjkqbak02-91-3509MCHQ-UoO-0 (COVID-19) mRNA BNT-162b2 jakexAMITA REBECCA [facility] on above:Result Comment: 2022-11-15: [id number]-GyT-6 (COVID-19) mRNA BNT-162b2 vaxJENNIFER REBECCA [facility] on above:Result Comment: 2022-11-15: [id number] Payers DatePayer CategoryPayerPolicy [id number] 2020Medicare (Managed Care)[id number] [id number] [id number] [id number] 2..840.1.887665.3.57[id number] 2..840.1.684840.3.579.2.62918-41-2187Dwmrbot3428527 2..840.1.342922.3.579.2.44253-72-7580Bwtbxjv2589228 2..840.1.039135.3.579.2.56431-64-7877Ewcoomr3747843 2..840.1.976651.3.579.2.53412-07-6235Fswputc5190194 2..840.1.845878.3.579.2.18685-62-1347Hjgymzx6376464 2..840.1.355883.3.579.2.11229-25-2796Jzmrxdf8482074 2.840.1.833156.3.579.2.53529-79-5432Tjgatsw6747624 2..840.1.463755.3.579.2.057999-71-9536Ixpixdq020063 2..840.1.259933.3.579.2.470792-56-7562Yptnkia86164158 2.16.840.1.324060.3.579.2.09228-88-9325Hwigrzr93258409 2..840.1.393004.3.579.2.45059-62-7987Ynzfstn46209929 2..840.1.957428.3.579.2.20532-35-7372Xzuearo33604901 2..840.1.934310.3.579.2.196599-32-0471Najgbqj43271076 2..840.1.886641.3.579.2.932372-46-7682Oqmbzlj72552906 2..840.1.298359.3.579.2.484093-71-5921Gxjyzvw1288759 2..840.1.108314.3.579.2.859900-13-9770Osapcbf1315675 2..840.1.665265.3.579.2.702818-24-3610Bcsghpt7536887 2.840.1.125476.3.579.2.112111-73-4435Blergef6546122 2..840.1.923674.3.579.2.426501-48-6799Sszviqf4856338 2.840.1.911736.3.579.2.1259 1960MedicareH68110980Medicare2K98X35UR51 6rt04x6j-7032-1r0e-h171-52g1b26rxx89Abcaoen63569439 2.840.1.708391.3.579.2.531 Social History DateTypeDetailFacilityTobaccoCurrent, Cigarettes, 40 per day.[facility] start: 03-06-2024 End: 56-77-5935Apx Assigned At BirthMaleExec[facility] start: 01-17-2022 End: 26-04-5165Ewnaflr smoking statusHeavy tobacco smoker (finding)[facility] start: 07-16-1988 End: 51-72-4646Hrutsiw smoking status NHISSmokes tobacco dailyNOMS Healthcare Start: 07-16-1988 End: 75-23-0233Ibjnbgg of tobacco useCigarette SmokerNOMS HealthcareStart: 12-31-2023 End: 35-81-0342Ivnbnsujdo smoked current (pack per day) - Rtsyhlxd3ODRV HealthcareStart: 09-10-2023 End: 08-68-6319Czpowds use and exposureSmokeless tobacco non-userNOMS Healthcare Start: 10-25-2023 End: 43-07-7001Yghgueraq beverage intakeCurrent drinker of alcohol (finding)[facility] HealthcareStart: 39-06-9605Jjnkulu Rjmwzgs83 or more cigarettes/dayNOMS HealthcareStart: 35-40-8352Fmjqslj Commentcaffeine: more than 4 cups/dayNOMS HealthcareStart: 25-72-4036Xeh [facility] at [facility]Not on fileNOMS HealthcareStart: 98-38-2342Xpqsggr smoking statusNeverExecutive Urology of St. [facility] Hospitaltart: 07-02-2024 End: 88-40-0196Thyeyod smoking status NHISEx-smokerNOMS HealthcareStart: 07-16-1988 End: 40-50-8794Gusmrch of tobacco useCurrent smokerNOMS HealthcareTobacco smoking status NHISTobacco smoking consumption unknownProMedica Health System Start: 37-60-7620HchLphj (finding)[facility] SystemStart: 01-19-2025 Alcoholic beverage intakeEx-drinker (finding)[facility] HealthcareStart: 62-32-8597Mrd [facility]igned At [facility] SystemNEGATED: Highlighted row Start: NINFHistory of tobacco usePassive smokerNOMS Healthcare Medical Equipment Procedure CodeEquipment CodeEquipment Original TextEquipment IdentifierDates [id number]: 04-07-2024 End: 46-46-1136Zcaoel 1 each under the skin Daily Use as [id number] Start: 83-49-8383ZPV TWICE DAY WITH LANCING DEVICE.[id number]: 39-36-1040IEO TWICE A DAY TO TEST BLOOD SUGARS.[id number]: 12-10-2024 End: 12-10-2025 Functional Status AaujUuzllzbfhnPwdlhnDbaerlbq43-99-6822Sgluyjlnqr StatusN/AExec[facility]09-19-2024Functional StatusN/AExec[facility]05-16-2024Patient Health Questionnaire 2 item (PHQ-2) [Reported][facility] CenterNdpzuuloaz06-61-0285Zamrtokyca StatusN/A[facility]07-05-2022 Functional StatusN/A[facility] Clinical Notes 11-15-2021 to 04-21-2025 Note Date & BayaGjvlDtwiqdzq46-85-0939 History of Present illness Narrative* Zaria Xie MD - 04/21/2025 10:50 AM EDT Johnny Hamilton is a 54 y.o. male No ref. provider found presents with chief complaint of Diabetesand Follow-up HPI: IM : 04/2025 A1c 12.4 blood sugar 425 he has financial issues to his compliance, he is supposed to be onLantus 40 glipizide 10 mg twice a day, Actos 45 mg once a day. HPI: 07/2024 New Patient sent from [facility] for uncontrolled diabetes, A1c in our office 11.5, bloodsugar 484, currently is on glipizide 5 mg twice a day, Lantus increased to 30 units, Actos 50 mg once daily, unable to take metformin, denies coronary artery disease or stroke, had blurrd vision, hadneuropathy no amputation, kidney function within normal limits, lab in December/2023 total cholesterol 128, triglycerides 168, HDL 36, LDL 59. SUBJECTIVE: MEDICATIONS: Current Outpatient Medications Medication Instructions albuterol (2.5 MG/3ML) 0.083% nebulizer solution Every 4 hours PRN Alcohol Swabs (Alcohol Pads) 70 % pads 1 Pad, Every 12 hours Blood Glucose Monitoring Suppl ([facility]S Blood Glucose Meter) w/Device kit USE TWICE A DAY TO TEST BLOODSUGARS CVS Lancets Ultra Thin misc USE TWICE DAY WITH LANCING DEVICE. cyclobenzaprine (FLEXERIL) 10 mg, Oral, 3 times daily PRN fluconazole (Diflucan) 100 MG tablet 2 pills day one and then one pill daily for 13 days glipiZIDE XL (Glucotrol XL) 10 MG 24 hr tablet TAKE 1 TABLET BY MOUTH IN THE MORNING AND 1 TABLET BEFORE BEDTIME. DO NOT CRUSH, CHEW, OR SPLIT. glucose blood ([facility]S Glucose Meter Test Strips) test strip USE TWICE A DAY TO TEST BLOOD SUGARS. Lancets Ultra Thin 30G misc 1 Lancet, Every 12 hours Lantus SoloStar 45 Units, Subcutaneous, Nightly pen needle 31G x 5 mm misc [...] left ear COPD (chronic obstructive pulmonary disease) ([facility]) COVID-19 spring 2019 Depression DM (diabetes mellitus), type 2 ([facility]) Dysmetabolic syndrome X History of being hospitalized psychiatric,pneumonia,COPD Hypogonadism, male Insomnia Mental health disorder Mixed conductive and sensorineural hearing loss of left ear with restricted hearing of right ear Obese On combination antipsychotic drug therapy Osteoarthritis of knee Pancreatitis ([facility]) Paresthesia of hand Recurrent acute otitis media Schizophrenia ([facility]) Skin excoriation Sleep apnea, obstructive Smoking Tingling in extremities Type 2 diabetes mellitus, with long-term current use of insulin ([facility]) No past surgical history on file. REVIEW [...] recent change. No heart burn, liver or gallbladderdisease; no rectal bleeding or pain : No urinary pain , frequency or odor. MUSCULOSKELETAL: No muscle pain or cramps; no extremity weakness.No joint pain, stiffness, swellingor limitation of movement NEUROLOGY: No H/O seizures, stroke or fainting. No weakness, tremors. Hematology: No bleeding problems or excessive bruising ENDOCRINE: No increase in hunger, thirst or urination; admits compliance to medical management plan Feet: numbness tingling no , ulcers or skin break no Lab Results Component Value Date HGBA1C 12.4 04/21/2025 HGBA1C 11.5 07/28/2024 HGBA1C 12.6 07/02/2024 Lab Results Component Value Date GLU 425 04/21/2025 GLU 484 07/28/2024 GLU 151 (H) 01/01/2024 07/24/2024 8:31 AM 07/28/2024 12:58 PM 08/19/2024 9:30 AM 12/01/2024 9:02 AM 01/19/2025 11:24 AM 01/19/2025 2:55 PM 04/21/2025 10:57 AM Vitals BMI 40.88 kg/m2 40.72 kg/m2 38.53 kg/m2 43.38 kg/m2 43.07 kg/m2 42.29 kg/m2 40.88 kg/m2 BSA (m2) 2.36 m2 2.36 m2 2.3 m2 2.44 m2 2.43 m2 2.4 m2 2.36 m2 Systolic 116 132 142 113 142 107 Diastolic 80 68 70 75 74 64 Heart Rate 82 101 97 96 94 99 SpO2 96 % 99 % 98 % 97 % Temp 96.3 F 97.1 F 97.1 F Resp 16 18 16 18 18 18 Height (in) 5' 7 5' 7 5' 7 5' 7 5' 7 5' 7 5' 7 Weight (lb) 261 260 246 277 275 270 261 Visit Report Report Report Report Report Report Report Report Report ASSESSMENT AND PLAN: Assessment/Plan Diagnoses and all orders for this visit: Type II diabetes mellitus with complication (HCC) - POCT glucose manually resulted - POCT glycosylated hemoglobin (Hb A1C) docked device - C-peptide; Future - Vitamin D 25 hydroxy Total; Future - Microalbumin / creatinine urine ratio; Future - Lipid panel; Future - Renal function panel; Future We will increase his Lantus to 50 units at bedtime continue with glipizide 10 mg twice a day, Actos45 mg once a day, sample given for Levemir. Vitamin D deficiency Insulin long-term use (HCC) Encounter for dietary consultation Diet and exercise reviewed with the patient Follow up in about 3 months (around 07/22/2025). documented in this encounterNortheast Regional Medical [id number] Evaluation note* Diagnosis Onset Date Resolution Status Admit Date Degenerative disc disease, cervical acuteOctober 2024 9:23amDegenerative disc disease, lumbaracuteOctober 2024 9:23amDiabetesacuteOctober 2024 9:23amFace lesionacuteOctober 2024 9:23amInfected dental cariesacuteOctober 2024 9:23amSchizophrenia, acuteacuteOctober 2024 9:23amCOPD (chronic obstructive pulmonary disease) acuteNov2024 2:22pmDegenerative disc disease, cervicalacuteNov2024 2:22pmDegenerative disc disease, lumbaracuteNovember 2024 2:22pm DiabetesacuteNov2024 2:22pmMuscle crampsacuteNovember 2024 2:22pmPain in knee jointacuteNov2024 2:22pmSchizophrenia, acuteacute November 2024 2:22pm [facility] Work Phone: 1(772) 133-678308-21-2025 Telephone encounter Note* Telephone Encounter - Niharika Ward - 03/05/2025 2:57 PM EDT Johnny needs a note explaining his skin condition so tat the [facility] does not shut off his water. [facility] [id number] Miscellaneous Notes* Telephone Encounter - Niharika Ward - 03/05/2025 2:57 PM EDT Johnny needs a note explaining his skin condition so [facility] does not shut off his water. documented in this encounterNOLee's Summit HospitalGnvbyaunfm29-60-6545 History of Present illness Narrative* Horace Rollins MD - 01/19/2025 3:26 PM EDTAssociated Problem(s): Neck pain Pain likely related to DDD and check x-ray. Start prednisone for inflammation and flexeril for spasms. Use heat or massage PRN. If no improvement will need PT and possible MRI * Horace Rollins MD - 01/19/2025 2:45 PM EDT Images from the original note were not included. Subjective Patient ID: Johnny Hamilton is a 54 y.o. male who presents for Follow-up (Neck pain/ ear pain). C/o neck pain for about 2 weeks. No change in activity and no falls. Severe pain in neck up to backhead and into top of shoulders. No radiation [...] 2 or 3 views documented in this encounterNortheast Regional Medical CenterSzifdbmhwe41-09-0145 History of Present illness Narrative* Chuckie Brown MD - 01/19/2025 11:10 AM EDT Subjective Patient ID: Johnny Hamilton is a 54 y.o. male who presents for Ear Problem (Ear drainage) Pt states he has continued to have otorrhea and itching since last seen almost 3 years ago. Pt alsoc/o left hearing loss. Family History Problem Relation Name Age of Onset Diabetes Father Heart disease Father Active Ambulatory Problems Diagnosis Date Noted Class 3 severe obesity due to excess calories with serious comorbidity and body mass index (BMI) of40.0 to 44.9 in adult ([facility]) 06/26/2023 Chronic obstructive pulmonary disease (HCC) 06/26/2023 Hyperlipidemia 06/26/2023 Schizophrenia ([facility]) 06/26/2023 Encounter for screening for malignant neoplasm of colon 06/26/2023 Conductive hearing loss, unilateral, left ear with restricted hearing on the contralateral side 09/10/2023 Mixed conductive and sensorineural hearing loss of left ear with restricted hearing of right ear 09/10/2023 Tobacco abuse 10/08/2023 Type 2 diabetes mellitus with hyperglycemia, without long-term current use of insulin ([facility]) 04/07/2024 DDD (degenerative disc disease), lumbar 10/21/2024 Resolved Ambulatory Problems Diagnosis Date Noted Type 2 diabetes mellitus without complication, with long-term current use of insulin ([facility]) 06/26/2023 Recurrent acute otitis media 09/10/2023 Thoracolumbar [...] left ear COPD (chronic obstructive pulmonary disease) ([facility]) COVID-19 Depression DM (diabetes mellitus), type 2 ([facility]) Dysmetabolic syndrome X History of being hospitalized Hypogonadism, male Insomnia Mental health disorder Obese On combination antipsychotic drug therapy Osteoarthritis of knee Pancreatitis ([facility]) Paresthesia of hand Skin excoriation Sleep apnea, obstructive Smoking Tingling in extremities Type 2 diabetes mellitus, with long-term current use of insulin ([facility]) No past surgical history on file. Allergies [...] kit USE TWICE A DAY TO TEST BLOODSUGARS 1 kit 1 [facility]S Lancets Ultra Thin [...] will order an audio documented in this encounterNortheast Regional Medical [id number] History of Present illness Narrative* Horace Rollins MD - 12/01/2024 9:26 AM EDTAssociated Problem(s): Type 2 diabetes mellitus with hyperglycemia, without long-term current use of insulin ([facility]) Not checking BS and need to follow up with endo. * Horace Rollins MD - 12/01/2024 9:26 AM EDTAssociated Problem(s): Schizophrenia Reports stopped medication and patient with unusual behavior. Able to redirect and not aggressive but concerning. Denies thoughts of hurting self or others. Needs to follow up with psychiatry. * Horace Rollins MD - 12/01/2024 9:25 AM EDTAssociated Problem(s): Chronic obstructive pulmonary disease (CMS/HCC) Sob stable and use albuterol PRN. * Horace Rollins MD - 12/01/2024 9:25 AM EDTAssociated Problem(s): Class 3 severe obesity due to excess calories with serious comorbidity and body mass index (BMI) of 40.0 to 44.9 in adult Weight loss indicated. * Horace Rollins MD - 12/01/2024 8:45 AM EDT Images from the original note were not included. Subjective Patient ID: Johnny Hamilton is a 54 y.o. male who presents for Follow-up (Muscle soreness). Follow up COPD, DM, and schizophrenia. Patient reports stopped taking Cobenfy several weeks ago dueto weight gain. Previously given geodon but also [...] serious comorbidity and body mass index (BMI) of40.0 to 44.9 in adult Weight loss indicated. [...] follow up with endo. documented in this encounterNortheast Regional Medical [id number] Telephone encounter Note* Telephone Encounter - Thee Neves - 11/20/2024 1:42 PM EDT Pt states ozempic too expensive, would like something less expensive if possible? [facility] [id number] Miscellaneous Notes* Telephone Encounter - Thee Neves - 11/20/2024 1:42 PM EDT Pt states ozempic too expensive, would like something less expensive if possible? documented in this encounterNortheast Regional Medical CenterPfhfccnslh80-50-0595 Telephone encounter Note* Telephone Encounter - Thee Edinson - 08/26/2024 9:58 AM EST Pt says ozempic is $500. Is there a different medication that he can try? Please advise. He's goingto try for patient assistance. [facility] [id number] Miscellaneous Notes* Telephone Encounter - Thee Edinson - 08/26/2024 9:58 AM EST Pt says ozempic is $500. Is there a different medication that he can try? Please advise. He's goingto try for patient assistance. documented in this encounterNortheast Regional Medical [id number] History of Present illness Narrative* Ashanti López NP - 08/19/2024 10:09 AM ESTAssociated Problem(s): Chronic obstructive pulmonary disease (CMS/HCC) Reports he has recernly stopped smoking and drinking alcohol. States he feels his COPD symptoms are well controlled now compared to several months ago when he was smoking. Reports minimal rescue inhaler use. Continue current regimen. * Ashanti López NP - 08/19/2024 9:47 AM ESTAssociated Problem(s): Type II diabetes mellitus with complication (CMS/HCC) Most recent A1C 11.5% 07/2024. Was referred to Endocrinology- is now following with Dr. Xie. Actos was increased, glipizide increased. Lantus increased and started on Semaglutide. States he has been taking medication exactly as directed by Dr. Xie. Reports no adverse reactions to medications, hypoglycemic episodes. Continue current regimen as directed buy Dr. Xie. * Ashanti López NP - 08/19/2024 9:30 AM EST Images from the original note were not included. Subjective Patient ID: Johnny Hamilton is a 54 y.o. male who presents for Follow-up. HPI Pt here today for 6 week follow up. Since last appointment was able to get in to see Dr. Xie- Endocrinology. DMII: Most recent A1C 11.5% 07/2024. Was referred to Endocrinology- is now following with Dr. Xie. At that OV Actos was increased, glipizide increased. Lantus increased and started on Semaglutide. States he has been taking medication exactly as directed by Dr. Xie. Reports no adverse reactions to medications, hypoglycemic episodes. Continue current regimen as directed buy Dr. Xie. COPD: Reports he has recernly stopped smoking [...] Neurological: Negative for dizziness, tremors, syncope, weakness, light- headedness and headaches. Psychiatric/Behavioral: Negative for decreased concentration and suicidal ideas. The patient is notnervous/anxious. Hematological: Does not bruise/bleed easily. Endocrine: Negative [...] Addressed This Visit Chronic obstructive pulmonary disease ([facility]) Reports he has recernly stopped smoking and drinking alcohol. States he feels his COPD symptoms are well controlled now compared to several months ago when he was smoking. Reports minimal rescue inhaler use. Continue current regimen. Type II diabetes mellitus with complication ([facility]) - Primary Most recent A1C 11.5% 07/2024. Was referred to Endocrinology- is now following with Dr. Xie. Actos was increased, glipizide increased. Lantus increased and started on Semaglutide. States he has been taking medication exactly as directed by Dr. Xie. Reports no adverse reactions to medications, hypoglycemic episodes. Continue current regimen as directed buy Dr. Xie. documented in this encounterNortheast Regional Medical [id number] Instructions* Patient Instructions* Ashanti López NP - 08/19/2024 9:30 AM EST Keep ALL appointments as scheduled with ALL of your specialists. Have your lab work done before your next visit with Dr. Xie in October. Call if you need anything! documented in this encounterNortheast Regional Medical [id number] History of Present illness Narrative* Zaria Xie MD - 07/28/2024 1:00 PM EST Johnny Hamilton is a 54 y.o. male [place] [facility], * presents with chief complaint of Diabetes HPI: HPI 07/2024 New Patient sent from [facility] for uncontrolled diabetes, A1c in our office 11.5, bloodsugar 484, currently is on glipizide 5 mg twice a day, Lantus increased to 30 units, Actos 50 mg once daily, unable to take metformin, denies coronary artery disease or stroke, had blurrd vision, hadneuropathy no amputation, kidney function within normal limits, lab in December/2023 total cholesterol 128, triglycerides 168, HDL 36, LDL 59. SUBJECTIVE: MEDICATIONS: Current Outpatient Medications Medication Instructions albuterol (2.5 MG/3ML) 0.083% nebulizer solution Every 4 hours PRN albuterol HFA 90 mcg/act inhaler 2 puffs, Every 4 hours PRN Alcohol Swabs (Alcohol Pads) 70 % pads 1 Pad, Every 12 hours Continuous Glucose Tassel Maker (FreeStyle Tenzin 2 [place]) device 1 Device, Does not apply, Once [...] left ear COPD (chronic obstructive pulmonary disease) ([facility]) COVID-19 spring 2019 Depression ([facility] DM (diabetes mellitus), type 2 ([facility]) Dysmetabolic syndrome X History of being hospitalized psychiatric,pneumonia,COPD Hypogonadism, male Insomnia Mental health disorder Mixed conductive and sensorineural hearing loss of left ear with restricted hearing of right ear Obese On combination antipsychotic drug therapy Osteoarthritis of knee Pancreatitis Paresthesia of hand Recurrent acute otitis media Schizophrenia ([facility]) Skin excoriation Sleep apnea, obstructive Smoking Tingling in extremities Type 2 diabetes mellitus, with long-term current use of insulin ([facility]) No past surgical history on file. REVIEW [...] recent change. No heart burn, liver or gallbladderdisease; no rectal bleeding or pain : No urinary pain , frequency or odor. MUSCULOSKELETAL: No muscle pain or cramps; no extremity weakness.No joint pain, stiffness, swellingor limitation of movement NEUROLOGY: No H/O seizures, [...] visit: Type II diabetes mellitus with complication ([facility]) - Ambulatory referral to Endocrinology - POCT glycosylated hemoglobin (Hb A1C) docked device - POCT glucose manually resulted - glipiZIDE XL (Glucotrol XL) 10 MG 24 hr tablet; Take 1 tablet (10 mg) by mouth in the morning and1 tablet (10 mg) before bedtime. Do not [...] the skin at bedtime - Continuous Glucose Tassel Maker (FreeStyle Tenzin 2 [place]) device; 1 Device 1 (one) time for [...] for 2 weeks then we will increase itto 0.5, we will start freestyle Tenzin system 2, all prescriptions sent, we will check lab before next visit including C-peptide. Vitamin D deficiency Insulin long-term use ([facility]) Encounter for dietary consultation Diet and exercise reviewed with the patient Class 3 severe obesity due to excess calories with serious comorbidity and body mass index (BMI) of40.0 to 44.9 in adult ([facility]) Advised to learn about carb count Follow up in about 3 months (around 10/26/2024). documented in this encounterNortheast Regional Medical [id number] History of Present illness Narrative* Anthony Pride Max, DPM - 07/24/2024 8:30 AM EST Patient: Johnny Hamilton : 1970 PCP: Horace Rollins MD SUBJECTIVE [...] left ear COPD (chronic obstructive pulmonary disease) ([facility]) COVID-19 spring 2019 Depression ([facility]) DM (diabetes mellitus), type 2 ([facility]) Dysmetabolic syndrome X History of being hospitalized psychiatric,pneumonia,COPD Hypogonadism, male Insomnia Mental health disorder Mixed conductive and sensorineural hearing loss of left ear with restricted hearing of right ear Obese On combination antipsychotic drug therapy Osteoarthritis of knee Pancreatitis Paresthesia of hand Recurrent acute otitis media Schizophrenia ([facility]) Skin excoriation Sleep apnea, obstructive Smoking Tingling in extremities Type 2 diabetes mellitus, with long-term current use of insulin ([facility]) Medications: Current Outpatient Medications: albuterol (2.5 MG/3ML) 0.083% nebulizer solution, Take by nebulization every 4 (four) hours if needed for wheezing or shortness of breath, Disp: , Rfl: albuterol HFA 90 mcg/act inhaler, Inhale 2 puffs every 4 (four) hours if needed for wheezing, Disp:, Rfl: Alcohol Swabs (Alcohol Pads) 70 % pads, 1 Pad every 12 (twelve) hours, Disp: , Rfl: dapagliflozin (Farxiga) 5 MG, Take 1 tablet (5 mg) by mouth Daily, Disp: 30 tablet, Rfl: 11 glipiZIDE (Glucotrol) 5 MG tablet, Take 1 tablet (5 mg) by mouth in the morning and 1 tablet (5 mg)in the evening. Take before meals., Disp: 60 [...] and negative PT pedal pulses NEURO: 5.07 [place] Maddie monofilament test intact to digits and forefoot bilaterally 125Hz tuning fork diminished to 1st MPJ bilaterally ORTHO: Positive pain on palpation to nails 1 through 10 ASSESSMENT 1. Diabetes mellitus due to underlying condition with diabetic 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, unspecified whether superintendent terminal insulin use ([facility]) 2. Pain due to onychomycosis of toenails of both feet 3. Venous insufficiency PLAN Discussed proper foot care with patient today. Debride nails in length and thickness digits 1 through 10 Patient educated today on proper diabetic foot care including monitoring feet daily for any signs of infection openings in the skin or irregularities to both feet. Patient had a diabetic neurologicalexam today to both their feet and discussed proper shoe gear. Visit spent with patient education on condition and treatment of condition. Anthony Santana DPM documented in this encounterNortheast Regional Medical [id number] History of Present illness Narrative* Ashanti López NP - 07/02/2024 9:24 AM ESTAssociated Problem(s): Hyperlipidemia ([facility]) Not on any medication therapy currently. Triglycerides are slightly elevated. Continue to monitor closely with psychiatric medications * Ashanti López NP - 07/02/2024 9:18 AM ESTAssociated Problem(s): Type II diabetes mellitus with complication ([facility]) Currently taking Glipizide 5mg BID Actos 15 [...] persistent hypoglycemia/hyperglycemia on home glucose monitoring noted. * Ashanti López NP - 07/02/2024 9:00 AM EST Images from the original note were not included. Subjective Patient ID: Johnny Hamilton is a 54 y.o. male who presents [...] feet frequently monitoring for open wounds , andalso recommend yearly eye exam. Pt should attempt [...] Neurological: Negative for dizziness, tremors, syncope, weakness, light- headedness and headaches. Psychiatric/Behavioral: Negative for decreased concentration and suicidal ideas. The patient is notnervous/anxious. Hematological: Does not bruise/bleed easily. Endocrine: Negative [...] Visit Type II diabetes mellitus with complication (CMS/[facility]) Currently taking Glipizide 5mg BID Actos 15 [...] complication, with long-term current use of insulin ([facility]) Relevant Medications dapagliflozin (Farxiga) 5 MG Other Relevant Orders POCT glycosylated hemoglobin (Hb A1C) docked device (Completed) documented in this encounterNortheast Regional Medical [id number] Instructions* Patient Instructions* Ashanti López NP - 07/02/2024 9:00 AM [...] feet frequently monitoring for open wounds , andalso recommend yearly eye exam. Pt should attempt to remain as physically active as chronic conditions allow, as well as trying to follow a diet low in carbohydrates, and simple sugars. documented in this encounterNortheast Regional Medical [id number] Miscellaneous Notes* Telephone Encounter - Clau Gaspar - 05/28/2024 2:21 PM EST First Attempt Made from Fidencio FULL New [...] INSURANCE INFORMATION TO THEIR NEW PATIENT APPOINTMENT * Telephone Encounter - Giuliana Malik - 05/28/2024 2:21 PM EST 2nd attempt: Signals Officer contacted patient once more attempting to inform patient that we have received their new patient referral and are calling to schedule them in with our first available appointment with our clinic. Patient appeared to answer phone but there was no response on the other end. FYI. [facility] Tele[facility] encounter Note* Telephone Encounter - Clau Gaspar - 05/28/2024 2:21 PM EST First Attempt Made from Jose FULL New patient referral received. Dx:Type II diabetes mellitus with complication ([facility]) [E11.8] Polyneuropathy [G62.9]/ Referred by:VERNELL Hoskins Referred to: Providers patient can see in clinic (Make sure if AGUILA is listed the patient has not seen a Neurologist before): Please contact patient to schedule from referral, Thanks! PLEASE REVIEW PLAN OVER THE PHONE AND ADVISE PATIENT TO BRING UPDATED INSURANCE INFORMATION TO THEIR NEW PATIENT APPOINTMENT [facility]11-13-20[facility] Telephone encounter Note* Telephone Encounter - Giuliana Malik - 05/28/2024 2:21 PM EST 2nd attempt: Signals Officer contacted patient once more attempting to inform patient that we have received their new patient referral and are calling to schedule them in with our first available appointment with our clinic. Patient appeared to answer phone but there was no response on the other end. FYI. [facility]11-04-2024 Telephone encounter Note* Telephone Encounter - Ashanti López NP - 05/19/2024 8:32 AM EST Spoke with patient again today to discuss [...] his care ids individualized and it is imp erative he follows the medication regimen prescribed to [...] to see a new primary care provider. [facility] [id number] Miscellaneous Notes* Telephone Encounter - Ashanti López NP - 05/19/2024 8:32 AM EST Spoke with patient again today to discuss [...] his care ids individualized and it is imp erative he follows the medication regimen prescribed to [...] new primary care provider. documented in this encounterNortheast Regional Medical [id number] NotePatient Education Urology Erectile Dysfunction Erectile dysfunction (ED) is the inability to get or keep an erection in order to have sexual intercourse. ED is considered a symptom of an underlying disorder and is not considered a disease. ED mayinclude: ? Inability to get an erection. ? [...] The tube is inserted into the opening atthe tip of the penis, which is the opening of the urethra. A tiny pellet of medicine is put in the urethra. The pellet dissolves and enhances erectile function. This is also called MUSE (medicated urethral system for erections) therapy. ? Vacuum pump. This is a pump with a ring on it. The pump and ring are placed on the penis and usedto create pressure that helps the penis become [...] these instructions at home: Medicines ? Take sqxx-azd-zmfwtgs and prescription medicines only as told by [...] to prevent headaches while taking ED medicines. Thesemedicines may cause a sudden headache due to the increase in blood flow in your body. General instructions ? Exercise regularly, as directed by your health care provider. Work with your health care providerto lose weight, if needed. ? Do not use any products that contain nicotine or tobacco. These (more content not included)...[facility]10-09-[facility]24 History of Present illness Narrative* Ashanti López NP - 04/23/2024 12:40 PM EDT Called and spoke with patient directly. Advised [...] significance of adhering to his medication regimen asdirected. Pt verbalized understanding and stated he would be picking medications up from pharmacy today. documented in this encounterNortheast Regional Medical [id number] History of Present illness Narrative* Anthony Santana DPM - 04/17/2024 1:10 PM EDT Patient: Johnny Hamilton : 1970 PCP: Horace Rollins MD SUBJECTIVE [...] left ear COPD (chronic obstructive pulmonary disease) ([facility]) COVID-19 spring 2019 Depression ([facility]) DM (diabetes mellitus), type 2 ([facility]) Dysmetabolic syndrome X History of being hospitalized psychiatric,pneumonia,COPD Hypogonadism, male Insomnia Mental health disorder Mixed conductive and sensorineural hearing loss of left ear with restricted hearing of right ear Obese On combination antipsychotic drug therapy Osteoarthritis of knee Pancreatitis Paresthesia of hand Recurrent acute otitis media Schizophrenia ([facility]) Skin excoriation Sleep apnea, obstructive Smoking Tingling in extremities Type 2 diabetes mellitus, with long-term current use of insulin ([facility]) Medications: Current Outpatient Medications: albuterol (2.5 MG/3ML) 0.083% nebulizer solution, Take by nebulization every 4 (four) hours if needed for wheezing or shortness of breath, Disp: , Rfl: albuterol HFA 90 mcg/act inhaler, Inhale 2 puffs every 4 (four) hours if needed for wheezing, Disp:, Rfl: Alcohol Swabs (Alcohol Pads) 70 % pads, 1 Pad every 12 (twelve) hours, Disp: , Rfl: glipiZIDE (Glucotrol) 5 MG tablet, Take 1 tablet (5 mg) by mouth in the morning and 1 tablet (5 mg)in the evening. Take before meals., Disp: 60 [...] and negative PT pedal pulses NEURO: 5.07 [place] Maddie monofilament test intact to digits and forefoot bilaterally 125Hz tuning fork diminished to 1st MPJ bilaterally ORTHO: Positive pain on palpation to nails 1 through 10 ASSESSMENT 1. Diabetes mellitus due to underlying condition with diabetic 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, unspecified whether senior living insulin use ([facility]) 2. Onychomycosis 3. Toe pain, bilateral 4. Venous insufficiency PLAN Discussed proper foot care with patient today. Debride nails in length and thickness digits 1 through 10 Patient educated today on proper diabetic foot care including monitoring feet daily for any signs of infection openings in the skin or irregularities to both feet. Patient had a diabetic neurologicalexam today to both their feet and discussed proper shoe gear. Visit spent with patient education on condition and treatment of condition. Anthony Santana DPM documented in this encounterNortheast Regional Medical [id number] History of Present illness Narrative* Ashanti López NP - 04/08/2024 2:44 PM EDTAssociated Problem(s): Type II diabetes mellitus with complication ([facility]) Was on Novolin 70/30 60u BID but [...] did not tolerate. Will initiate Jardiance today * Ashanti López NP - 04/08/2024 2:44 PM EDTAssociated Problem(s): Acute otitis externa of both ears Ofloxacin drops sent in X7 days * Ashanti López NP - 04/08/2024 2:42 PM EDTAssociated Problem(s): Anal pruritus Rx sent for hydrocortisone suppository * Ashanti López NP - 04/07/2024 9:00 AM EDT Images from the original note were not included. Subjective Patient ID: Johnny Hamilton is a 53 y.o. male who presents for Follow-up, Ear Drainage, and NERVE PAIN. Ear Drainage Associated symptoms include ear discharge. Pertinent negatives include no abdominal pain, coughing,diarrhea, headaches, rash, rhinorrhea, sore throat or vomiting. [...] ear pain. Negative for congestion, rhinorrhea, sinus pressure,sinus pain, sneezing, sore throat, trouble swallowing and [...] Neurological: Negative for dizziness, tremors, syncope, weakness, light- headedness and headaches. Psychiatric/Behavioral: Negative for decreased concentration and suicidal ideas. The patient is notnervous/anxious. Hematological: Does not bruise/bleed easily. Endocrine: Negative [...] complication, with long-term current use of insulin ([facility]) - Primary Anal pruritus Rx sent for hydrocortisone suppository Type II diabetes mellitus with complication (CMS/HCC) Was on Novolin 70/30 60u BID but [...] sent in X7 days documented in this [facility]09-23-2024 Instructions* Patient Instructions* Ashanti López NP - 04/07/2024 9:00 AM EDT Education: Check blood sugars daily, notify if <70 or >200. Take medications (pills or insulin) as directed. Monitor for s/s of hypoglycemia (sweaty, dizziness, nausea, vomiting, or shakiness). Watch for increase in thirst, urination, or appetite. Inspect feet frequently monitoring for open wounds , andalso recommend yearly eye exam. Pt should attempt to remain as physically active as chronic conditions allow, as well as trying to follow a diet low in carbohydrates, and simple sugars. documented in this [facility]09-19-2024 Hospital Discharge instructions Patient Education 04/03/2024 13:01:27 Prostatitis Prostatitis Prostatitis is swelling or inflammation of the prostate gland, also called the prostate. This glandis about 1.5 inches wide and 1 inch [...] quickly and results from an acute bacterial infectionin the prostate gland. It is usually associated [...] when the body's disease-fighting system attacks healthy tissuein the body by mistake. Psychological factors. These [...] Follow these instructions at home: Medicines Take puia-eod-ugrgacs and prescription medicines only as told by your health care provider. If you were prescribed an antibiotic medicine, take it as told by your health care provider. Do notstop using the antibiotic even if you start to feel better. Managing pain and swelling Take sitz baths as directed by your health care provider. For a sitz bath, sit in warm water that is deep enough to cover your hips and buttocks. If directed, apply heat to the affected area as often as told by your health care provider. Use theheat source that your health care provider recommends, [...] important. Where to find more information [place] of Diabetes and Digestive and Kidney Diseases: [...] depends on the type of prostatitis. Take qzax-cxm-uiislwn and prescription medicines only as told by your health care provider. Get help right away of you have chills, feel light-headed, feel like you may faint, cannot urinate,or have blood or blood clots in your urine. This information is not intended to replace advice given to you by your health care provider. Make sure you discuss any questions you have with your health care provider. Document Revised: 05/17/2023 Document Reviewed: 05/17/2023 [employer] Patient Education 2023 [employer]. Follow Up Care 04/01/2024 10:02:22 With:AMITA FERNANDEZ PA-C, URL Address: [address] [place] [place] [address] Business (1) When: only if needed [facility] Jennifer 09-19-2024 NotePatient Education Infectious Disease Prostatitis Prostatitis is swelling or inflammation of the prostate gland, also called the prostate. This glandis about 1.5 inches wide and 1 inch [...] tone in the area between the hip bones(pelvic area), around the prostate. This type is also known as a pelvic floor disorder. ? Chronic bacterial prostatitis. This type usually results from an acute bacterial infection in theprostate gland that keeps coming back or has [...] with a bladder infection, high fever, and chills.This is the least common type of prostatitis. [...] of your body that drains urine from thebladder (urethra). How is this treated? Treatment for [...] these instructions at home: Medicines ? Take vrvr-fdm-skyrdfx and prescription medicines only as told by [...] a sitz bath, sit in warm water thatis deep enough to cover your hips and [...] Where to find more information ? [place] of Diabetes and Digestive a (more content not included)... [facility]08-22-2024 History of Present illness Narrative* Ashanti López NP - 03/06/2024 9:27 AM EDTAssociated Problem(s): Hyperlipidemia (CMS/HCC) Not on any medication therapy. Triglycerides are slightly elevated. Continue to monitor closely with psychiatric medications * Ashanti López NP - 03/06/2024 9:22 AM EDTAssociated Problem(s): Chronic obstructive pulmonary disease (CMS/HCC) Worsened from baseline as he is smoking again. Reports cough and intermittent SOB on exertion with warmer days and humidity. Patient counseled on smoking cessation. * Ashanti López NP - 03/06/2024 9:21 AM EDTAssociated Problem(s): Type 2 diabetes mellitus without complication, with long-term current use ofinsulin (CMS/HCC) Currently not taking insulin Most recent A1C is 6.7% without medications Reports he is inconsistently taking old prescription of Glipizide if he eats poorly. Stressed the importance of adhering to medication regimen and not changing medications without consulting provider first. * Ashanti López NP - 03/06/2024 9:00 AM EDT Images from the original note were not included. Subjective Patient ID: Johnny Hamilton is a 53 y.o. male who presents for Blood Sugar Problem (Elevated FBS'sin the 250's, Pt recently started diet back [...] GLUCOSE mg/dL 146 200 180 Resulting Agency [facility] Most recent labs: hemoglobin A1C Average [...] ALBUMIN GLOBULIN RATIO 0.8 0.8 Resulting Agency [facility] COPD: Albuterol Feels Symptoms are not [...] Neurological: Negative for dizziness, tremors, syncope, weakness, light- headedness and headaches. Psychiatric/Behavioral: Negative for decreased concentration and suicidal ideas. The patient is notnervous/anxious. Hematological: Does not bruise/bleed easily. Endocrine: Negative [...] complication, with long-term current use of insulin ([facility]) Currently not taking insulin Most recent A1C [...] closely with psychiatric medications documented in this encounterNortheast Regional Medical [id number] Instructions* Patient Instructions* Ashanti López NP - 03/06/2024 9:00 AM [...] feet frequently monitoring for open wounds , andalso recommend yearly eye exam. Pt should attempt to remain as physically active as chronic conditions allow, as well as trying to follow a diet low in carbohydrates, and simple sugars. documented in this encounterNortheast Regional Medical [id number] Hospital Discharge instructions Patient Education 11/15/2022 15:31:04 Erectile Dysfunction Erectile Dysfunction Erectile dysfunction (ED) is the inability to get or keep an erection in order to have sexual intercourse. ED is considered a symptom of an underlying disorder and is not considered a disease. ED mayinclude: Inability to get an erection. Lack of [...] back or pelvic injuries, multiple sclerosis, Parkinson's disease,spinal cord injury, and stroke. Certain medicines, such [...] or the penis may be too curved toallow for intercourse. Never having nighttime or morning [...] penis. During this procedure, a blood vessel froma different part of the body is placed into the penis to allow blood to flow around (bypass) damaged or blocked blood vessels. Lifestyle changes, such as exercising more, losing weight, and quitting smoking. Follow these instructions at home: Medicines Take zqah-yrx-nglpsky and prescription medicines only as told by your health care provider. Do not increase the dosage without first discussing it with your health care provider. If you are using self-injections, do injections as directed by your health care provider. Make sureyou avoid any veins that are on the surface of the penis. After giving an injection, apply pressureto the injection site for 5 minutes. Talk [...] you need help quitting, ask your health careprovider. Before using a vacuum pump, read the instructions that come with the pump and discuss any questionswith your health care provider. Keep all follow-up [...] provider. Document Revised: 09/28/2021 Document Reviewed: 09/28/2021 [employer] Patient Education 2022 [employer]. Follow Up Care 10/31/2022 09:47:32 With:AMITA FERNANDEZ PA-C, URL Address: [address] [place] [address] When: Unknown [facility] 07-05-2022 Hospital Discharge instructions Patient Education 01/17/2022 11:36:40 [...] Follow these instructions at home: Medicines Take ytpv-qer-bfpembn and prescription medicines only as told by your health care provider. Do not increase the dosage without first discussing it with your health care provider. If you are using self-injections, perform injections as directed by your health care provider. Makesure to avoid any veins that are on [...] come with the pump and discuss any questionswith your health care provider. Keep all follow-up [...] and may include medicines, hormone therapy, surgery, orvacuum pump. You may need follow-up visits to [...] 06/29/2001 Document Revised: 06/14/2018 Document Reviewed: 07/18/2017 [employer] Patient Education 2020 [employer]. Follow Up Care 11/15/2021 10:33:52 With:Erickson Brooks MD, Tee Brush URO Address: [facility] [address], [place] [address] [phone] When:02/28/[address] [facility] 05-03-2022 Hospital Discharge instructions Patient Education 11/15/2021 10:23:37 [...] Follow these instructions at home: Medicines Take eozu-wkw-nchfjxl and prescription medicines only as told by your health care provider. Do not increase the dosage without first discussing it with your health care provider. If you are using self-injections, perform injections as directed by your health care provider. Makesure to avoid any veins that are on [...] come with the pump and discuss any questionswith your health care provider. Keep all follow-up [...] and may include medicines, hormone therapy, surgery, orvacuum pump. You may need follow-up visits to [...] 06/29/2001 Document Revised: 06/14/2018 Document Reviewed: 07/18/2017 [employer] Patient Education 2020 [employer]. Follow Up Care 08/23/2021 10:12:56 With:Tee Almendarez Jr., MD, URO Address: [facility] [address], [place] [address]- When:01/15/2022 [facility] evaluation + Plan note Future Appointments Appointment Date:01/17/2022 09:45:00 AM Scheduled Provider:Tee Almendarez Jr., MD Location:[facility] Appointment Type:URO Office Visit Diagnostic Tests Pending * Testosterone Level Total 11/15/21 [facility] evaluation + Plan note Future Appointments Appointment Date:03/07/2022 08:45:00 AM Scheduled Provider:Tee Almendarez Jr., MD Location:[facility] Appointment Type:URO Office Visit [facility] evaluation + Plan note Future Appointments Appointment Date:11/20/2023 09:00:00 AM Scheduled Provider:AMITA FERNANDEZ PA-C Location:[facility] Appointment Type:URO Office Visit [facility] evaluation note* Diagnosis Type II diabetes mellitus with complication (CMS/[facility])- Primary Type II or unspecified type diabetes mellitus with unspecified complication, not stated as uncontrolled Diabetes mellitus due to underlying condition with diabetic 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, unspecified whether senior living insulin use ([facility])- Primary Onychomycosis Dermatophytosis of nail Toe pain, bilateral Venous insufficiency Unspecified venous (peripheral) insufficiency documented in this encounter [facility] HealthcareEvaluation note* Diagnosis Diabetes mellitus due to underlying condition with diabetic 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, unspecified whether superintendent terminal insulin use ([facility])- Primary Venous insufficiency Unspecified venous (peripheral) insufficiency Pain due to onychomycosis of toenails of both feet documented in this encounter [facility] HealthcareEvaluation note* Diagnosis Type II diabetes mellitus with complication ([facility])- Primary Type II or unspecified type diabetes mellitus with unspecified complication, not stated as uncontrolled documented in this encounter [facility] HealthcareEvaluation note* Diagnosis Obesity, morbid ([facility])- Primary Morbid obesity Type 2 diabetes mellitus without complication, with long-term current use of insulin ([facility]) Schizophrenia, unspecified type ([facility]) Chronic obstructive pulmonary disease, unspecified COPD type ([facility]) Hyperlipidemia, unspecified hyperlipidemia type ([facility]) Encounter for screening for malignant neoplasm of colon Chronic obstructive pulmonary disease, unspecified COPD type ([facility])- Primary Type 2 diabetes mellitus without complication, with long-term current use of insulin ([facility]) Tobacco abuse Tobacco use disorder Undifferentiated schizophrenia ([facility]) Type 2 diabetes mellitus without complication, with long-term current use of insulin ([facility])- Primary Thoracolumbar back pain Hidradenitis suppurativa of left axilla Type 2 diabetes mellitus without complication, with long-term current use of insulin ([facility])- Primary Obesity, morbid ([facility]) Morbid obesity Undifferentiated schizophrenia ([facility] [facility] Hyperlipidemia, unspecified hyperlipidemia type ([facility]) Thoracolumbar back pain Hyperlipidemia, unspecified hyperlipidemia type ([facility])- Primary Chronic obstructive pulmonary disease, unspecified COPD type ([facility]) Type 2 diabetes mellitus without complication, with long-term current use of insulin ([facility]) Type 2 diabetes mellitus without complication, with long-term current use of insulin ([facility])- Primary Type II diabetes mellitus with complication ([facility]) Type II or unspecified type diabetes mellitus with unspecified complication, not stated as uncontrolled Anal pruritus Pruritus ani Acute otitis externa of both ears, unspecified type Type II diabetes mellitus with complication ([facility])- Primary Type II or unspecified type diabetes mellitus with unspecified complication, not stated as uncontrolled documented in this encounter [facility] HealthcareEvaluation note* Diagnosis Obesity, morbid ([facility])- Primary Morbid obesity Type 2 diabetes mellitus without complication, with long-term current use of insulin ([facility]) Schizophrenia, unspecified type ([facility]) Chronic obstructive pulmonary disease, unspecified COPD type ([facility]) Hyperlipidemia, unspecified hyperlipidemia type ([facility]) Encounter for screening for malignant neoplasm of colon Chronic obstructive pulmonary disease, unspecified COPD type ([facility])- Primary Type 2 diabetes mellitus without complication, with long-term current use of insulin ([facility] Tobacco abuse Tobacco use disorder Undifferentiated schizophrenia ([facility]) Type 2 diabetes mellitus without complication, with long-term current use of insulin ([facility])- Primary Thoracolumbar back pain Hidradenitis suppurativa of left axilla Type 2 diabetes mellitus without complication, with long-term current use of insulin ([facility])- Primary Obesity, morbid ([facility]) Morbid obesity Undifferentiated schizophrenia ([facility]) Hyperlipidemia, unspecified hyperlipidemia type ([facility]) Thoracolumbar back pain Hyperlipidemia, unspecified hyperlipidemia type ([facility])- Primary Chronic obstructive pulmonary disease, unspecified COPD type ([facility]) Type 2 diabetes mellitus without complication, with long-term current use of insulin ([facility]) Type 2 diabetes mellitus without complication, with long-term current use of insulin ([facility])- Primary Type II diabetes mellitus with complication ([facility]) Type II or unspecified type diabetes mellitus with unspecified complication, not stated as uncontrolled Anal pruritus Pruritus ani Acute otitis externa of both ears, unspecified type Type II diabetes mellitus with complication ([facility]) Type II or unspecified type diabetes mellitus with unspecified complication, not stated as uncontrolled documented in this encounter [facility] HealthcareEvaluation note* Diagnosis Obesity, morbid ([facility])- Primary Morbid obesity Type 2 diabetes mellitus without complication, with long-term current use of insulin ([facility]) Schizophrenia, unspecified type ([facility]) Chronic obstructive pulmonary disease, unspecified COPD type ([facility]) Hyperlipidemia, unspecified hyperlipidemia type ([facility]) Encounter for screening for malignant neoplasm of colon Chronic obstructive pulmonary disease, unspecified COPD type ([facility])- Primary Type 2 diabetes mellitus without complication, with long-term current use of insulin ([facility] Tobacco abuse Tobacco use disorder Undifferentiated schizophrenia ([facility]) Type 2 diabetes mellitus without complication, with long-term current use of insulin ([facility])- Primary Thoracolumbar back pain Hidradenitis suppurativa of left axilla Type 2 diabetes mellitus without complication, with long-term current use of insulin ([facility])- Primary Obesity, morbid [place] Morbid obesity Undifferentiated schizophrenia ([facility]) Hyperlipidemia, unspecified hyperlipidemia type ([facility]) Thoracolumbar back pain Hyperlipidemia, unspecified hyperlipidemia type ([facility])- Primary Chronic obstructive pulmonary disease, unspecified COPD type ([facility]) Type 2 diabetes mellitus without complication, with long-term current use of insulin ([facility] [place] Type 2 diabetes mellitus without complication, with long-term current use of insulin ([facility])- Primary Type II diabetes mellitus with complication ([facility] [place] Type II or unspecified type diabetes mellitus with unspecified complication, not stated as uncontrolled Anal pruritus Pruritus ani Acute otitis externa of both ears, unspecified type Type II diabetes mellitus with complication ([facility])- Primary Type II or unspecified type diabetes mellitus with unspecified complication, not stated as uncontrolled documented in this encounter [facility] HealthcareEvaluation note* Diagnosis Hyperlipidemia, unspecified hyperlipidemia type ([facility])- Primary Chronic obstructive pulmonary disease, unspecified COPD type ([facility]) Type 2 diabetes mellitus without complication, with long-term current use of insulin ([facility]) documented in this encounter [facility] HealthcareEvaluation note* Diagnosis Obesity, morbid ([facility])- Primary Morbid obesity Type 2 diabetes mellitus without complication, with long-term current use of insulin ([facility]) Schizophrenia, unspecified type ([facility]) Chronic obstructive pulmonary disease, unspecified COPD type ([facility]) Hyperlipidemia, unspecified hyperlipidemia type ([facility]) Encounter for screening for malignant neoplasm of colon Chronic obstructive pulmonary disease, unspecified COPD type ([facility])- Primary Type 2 diabetes mellitus without complication, with long-term current use of insulin ([facility] Tobacco abuse Tobacco use disorder Undifferentiated schizophrenia ([facility]) Type 2 diabetes mellitus without complication, with long-term current use of insulin ([facility])- Primary Thoracolumbar back pain Hidradenitis suppurativa of left axilla Type 2 diabetes mellitus without complication, with long-term current use of insulin ([facility])- Primary Obesity, morbid ([facility]) Morbid obesity Undifferentiated schizophrenia ([facility]) Hyperlipidemia, unspecified hyperlipidemia type ([facility]) Thoracolumbar back pain Hyperlipidemia, unspecified hyperlipidemia type ([facility] [facility])- Primary Chronic obstructive pulmonary disease, unspecified COPD type ([facility]) Type 2 diabetes mellitus without complication, with long-term current use of insulin ([facility] [place] Type 2 diabetes mellitus without complication, with long-term current use of insulin ([facility])- Primary Type II diabetes mellitus with complication ([facility] [place]) Type II or unspecified type diabetes mellitus with unspecified complication, not stated as uncontrolled Anal pruritus Pruritus ani Acute otitis externa of both ears, unspecified type Type 2 diabetes mellitus without complication, with long-term current use of insulin ([facility]) Type II diabetes mellitus with complication ([facility] [place] Type II or unspecified type diabetes mellitus with unspecified complication, not stated as uncontrolled documented in this encounter [facility] HealthcareEvaluation note* Diagnosis Type 2 diabetes mellitus without complication, with long-term current use of insulin ([facility])- Primary Type II diabetes mellitus with complication ([facility]) Type II or unspecified type diabetes mellitus with unspecified complication, not stated as uncontrolled Anal pruritus Pruritus ani Acute otitis externa of both ears, unspecified type documented in this encounter [facility] HealthcareEvaluation note* Diagnosis Acute swimmer's ear of both sides- Primary Anal pruritus Pruritus ani documented in this encounter [facility] HealthcareEvaluation note* Diagnosis Obesity, morbid ([facility])- Primary Morbid obesity Type 2 diabetes mellitus without complication, with long-term current use of insulin ([facility]) Schizophrenia, unspecified type ([facility]) Chronic obstructive pulmonary disease, unspecified COPD type ([facility]) Hyperlipidemia, unspecified hyperlipidemia type ([facility] [place] Encounter for screening for malignant neoplasm of colon Chronic obstructive pulmonary disease, unspecified COPD type ([facility])- Primary Type 2 diabetes mellitus without complication, with long-term current use of insulin ([facility] Tobacco abuse Tobacco use disorder Undifferentiated schizophrenia ([facility]) Type 2 diabetes mellitus without complication, with long-term current use of insulin ([facility])- Primary Thoracolumbar back pain Hidradenitis suppurativa of left axilla Type 2 diabetes mellitus without complication, with long-term current use of insulin ([facility])- Primary Obesity, morbid ([facility]) Morbid obesity Undifferentiated schizophrenia ([facility] [facility]) Hyperlipidemia, unspecified hyperlipidemia type ([facility]) Thoracolumbar back pain Hyperlipidemia, unspecified hyperlipidemia type ([facility])- Primary Chronic obstructive pulmonary disease, unspecified COPD type ([facility]) Type 2 diabetes mellitus without complication, with long-term current use of insulin ([facility]) Type 2 diabetes mellitus without complication, with long-term current use of insulin ([facility])- Primary Type II diabetes mellitus with complication ([facility]) Type II or unspecified type diabetes mellitus with unspecified complication, not stated as uncontrolled Anal pruritus Pruritus ani Acute otitis externa of both ears, unspecified type Type 2 diabetes mellitus without complication, with long-term current use of insulin ([facility] Type II diabetes mellitus with complication ([facility]) Type II or unspecified type diabetes mellitus with unspecified complication, not stated as uncontrolled Type II diabetes mellitus with complication ([facility] [place]) Type II or unspecified type diabetes mellitus with unspecified complication, not stated as uncontrolled documented in this encounter [facility] HealthcareEvaluation note* Diagnosis Obesity, morbid ([facility])- Primary Morbid obesity Type 2 diabetes mellitus without complication, with long-term current use of insulin ([facility] [place]) Schizophrenia, unspecified type ([facility]) Chronic obstructive pulmonary disease, unspecified COPD type ([facility] [place]) Hyperlipidemia, unspecified hyperlipidemia type ([facility]) Encounter for screening for malignant neoplasm of colon Chronic obstructive pulmonary disease, unspecified COPD type ([facility])- Primary Type 2 diabetes mellitus without complication, with long-term current use of insulin ([facility] Tobacco abuse Tobacco use disorder Undifferentiated schizophrenia ([facility]) Type 2 diabetes mellitus without complication, with long-term current use of insulin ([facility])- Primary Thoracolumbar back pain Hidradenitis suppurativa of left axilla Type 2 diabetes mellitus without complication, with long-term current use of insulin ([facility])- Primary Obesity, morbid ([facility]) Morbid obesity Undifferentiated schizophrenia ([facility] [facility]) Hyperlipidemia, unspecified hyperlipidemia type ([facility]) Thoracolumbar back pain Hyperlipidemia, unspecified hyperlipidemia type ([facility])- Primary Chronic obstructive pulmonary disease, unspecified COPD type ([facility]) Type 2 diabetes mellitus without complication, with long-term current use of insulin ([facility] [facility]) Type 2 diabetes mellitus without complication, with long-term current use of insulin ([facility])- Primary Type II diabetes mellitus with complication ([facility]) Type II or unspecified type diabetes mellitus with unspecified complication, not stated as uncontrolled Anal pruritus Pruritus ani Acute otitis externa of both ears, unspecified type Type 2 diabetes mellitus without complication, with long-term current use of insulin ([facility]) Type II diabetes mellitus with complication ([facility]) Type II or unspecified type diabetes mellitus with unspecified complication, not stated as uncontrolled Diabetes mellitus due to underlying condition with diabetic 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, unspecified whether superintendent terminal insulin use ([facility])- Primary Pain due to onychomycosis of toenails of both feet Venous insufficiency Unspecified venous (peripheral) insufficiency documented in this encounter [facility] HealthcareEvaluation note* Diagnosis Obesity, morbid ([facility])- Primary Morbid obesity Type 2 diabetes mellitus without complication, with long-term current use of insulin ([facility]) Schizophrenia, unspecified type ([facility]) Chronic obstructive pulmonary disease, unspecified COPD type ([facility]) Hyperlipidemia, unspecified hyperlipidemia type ([facility]) Encounter for screening for malignant neoplasm of colon Chronic obstructive pulmonary disease, unspecified COPD type ([facility])- Primary Type 2 diabetes mellitus without complication, with long-term current use of insulin ([facility] Tobacco abuse Tobacco use disorder Undifferentiated schizophrenia ([facility]) Type 2 diabetes mellitus without complication, with long-term current use of insulin ([facility] [facility])- Primary Thoracolumbar back pain Hidradenitis suppurativa of left axilla Type 2 diabetes mellitus without complication, with long-term current use of insulin ([facility])- Primary Obesity, morbid ([facility]) Morbid obesity Undifferentiated schizophrenia ([facility]) Hyperlipidemia, unspecified hyperlipidemia type ([facility]) Thoracolumbar back pain Hyperlipidemia, unspecified hyperlipidemia type ([facility])- Primary Chronic obstructive pulmonary disease, unspecified COPD type ([facility]) Type 2 diabetes mellitus without complication, with long-term current use of insulin ([facility]) Type 2 diabetes mellitus without complication, with long-term current use of insulin ([facility] [facility])- Primary Type II diabetes mellitus with complication ([facility]) Type II or unspecified type diabetes mellitus with unspecified complication, not stated as uncontrolled Anal pruritus Pruritus ani Acute otitis externa of both ears, unspecified type Type 2 diabetes mellitus without complication, with long-term current use of insulin ([facility] Type II diabetes mellitus with complication ([facility]) Type II or unspecified type diabetes mellitus with unspecified complication, not stated as uncontrolled Type II diabetes mellitus with complication ([facility])- Primary Type II or unspecified type diabetes mellitus with unspecified complication, not stated as uncontrolled Vitamin D deficiency Insulin long-term use ([facility]) Encounter for long-term (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 of insulin Encounter for dietary consultation Class 3 severe obesity due to excess calories with serious comorbidity and body mass index (BMI) of40.0 to 44.9 in adult ([facility] HEALTH CARE) documented in this encounter [facility] HealthcareEvaluation note* Diagnosis Obesity, morbid ([facility])- Primary Morbid obesity Type 2 diabetes mellitus without complication, with long-term current use of insulin ([facility]) Schizophrenia, unspecified type ([facility]) Chronic obstructive pulmonary disease, unspecified COPD type ([facility]) Hyperlipidemia, unspecified hyperlipidemia type [place] Encounter for screening for malignant neoplasm of colon Chronic obstructive pulmonary disease, unspecified COPD type ([facility])- Primary Type 2 diabetes mellitus without complication, with long-term current use of insulin ([facility]) Tobacco abuse Tobacco use disorder Undifferentiated schizophrenia ([facility]) Type 2 diabetes mellitus without complication, with long-term current use of insulin ([facility])- Primary Thoracolumbar back pain Hidradenitis suppurativa of left axilla Type 2 diabetes mellitus without complication, with long-term current use of insulin ([facility])- Primary Obesity, morbid ([facility]) Morbid obesity Undifferentiated schizophrenia ([facility]) Hyperlipidemia, unspecified hyperlipidemia type ([facility]) Thoracolumbar back pain Hyperlipidemia, unspecified hyperlipidemia type ([facility])- Primary Chronic obstructive pulmonary disease, unspecified COPD type ([facility]) Type 2 diabetes mellitus without complication, with long-term current use of insulin [place] Type 2 diabetes mellitus without complication, with long-term current use of insulin ([facility])- Primary Type II diabetes mellitus with complication ([facility]) Type II or unspecified type diabetes mellitus with unspecified complication, not stated as uncontrolled Anal pruritus Pruritus ani Acute otitis externa of both ears, unspecified type Type 2 diabetes mellitus without complication, with long-term current use of insulin ([facility]) Type II diabetes mellitus with complication ([facility]) Type II or unspecified type diabetes mellitus with unspecified complication, not stated as uncontrolled Type II diabetes mellitus with complication ([facility])- Primary Type II or unspecified type diabetes mellitus with unspecified complication, not stated as uncontrolled Chronic obstructive pulmonary disease, unspecified COPD type ([facility]) documented in this encounter [facility]* Diagnosis Obesity, morbid ([facility])- Primary Morbid obesity Type 2 diabetes mellitus without complication, with long-term current use of insulin Schizophrenia, unspecified type Chronic obstructive pulmonary disease, unspecified COPD type ([facility]) Hyperlipidemia, unspecified hyperlipidemia type ([facility]) Encounter for screening for malignant neoplasm of colon Chronic obstructive pulmonary disease, unspecified COPD type ([facility])- Primary Type 2 diabetes mellitus without complication, with long-term current use of insulin Tobacco abuse Tobacco use disorder Undifferentiated schizophrenia ([facility]) Type 2 diabetes mellitus without complication, with long-term current use of insulin- Primary Obesity, morbid ([facility]) Morbid obesity Undifferentiated schizophrenia ([facility]) Hyperlipidemia, unspecified hyperlipidemia type ([facility]) Thoracolumbar back pain Hyperlipidemia, unspecified hyperlipidemia type ([facility])- Primary Chronic obstructive pulmonary disease, unspecified COPD type ([facility]) Type 2 diabetes mellitus without complication, with long-term current use of insulin Type 2 diabetes mellitus without complication, with long-term current use of insulin- Primary Type II diabetes mellitus with complication ([facility]) Type II or unspecified type diabetes mellitus with unspecified complication, not stated as uncontrolled Anal pruritus Pruritus ani Acute otitis externa of both ears, unspecified type Type 2 diabetes mellitus without complication, with long-term current use of insulin Type II diabetes mellitus with complication ([facility]) Type II or unspecified type diabetes mellitus with unspecified complication, not stated as uncontrolled Type II diabetes mellitus with complication ([facility])- Primary Type II or unspecified type diabetes mellitus with unspecified complication, not stated as uncontrolled Chronic obstructive pulmonary disease, unspecified COPD type ([facility]) Chronic obstructive pulmonary disease, unspecified COPD type ([facility])- Primary Undifferentiated schizophrenia ([facility]) Class 3 severe obesity due to excess calories with serious comorbidity and body mass index (BMI) of40.0 to 44.9 in adult Type 2 diabetes mellitus with hyperglycemia, without long-term current use of insulin ([facility]) documented in this encounter [facility] HealthcareEvaluation note* Diagnosis Obesity, morbid (CMS-HCC)- Primary Morbid obesity Type 2 diabetes mellitus [...] serious comorbidity and body mass index (BMI) of40.0 to 44.9 in adult ([facility]) Type 2 diabetes mellitus with hyperglycemia, without long-term current use of insulin (HCC) Other infective chronic otitis externa of both ears- Primary Other specified hearing loss of left ear, unspecified hearing status on contralateral side Perforation of left tympanic membrane documented in this encounter [facility] HealthcareEvaluation note* Diagnosis Obesity, morbid ([facility])- Primary Morbid obesity Type 2 diabetes mellitus [...] use of insulin (HCC)- Primary Obesity, morbid ([facility]) Morbid obesity Undifferentiated schizophrenia (HCC) Hyperlipidemia, unspecified [...] serious comorbidity and body mass index (BMI) of40.0 to 44.9 in adult ([facility]) Type 2 diabetes mellitus with hyperglycemia, without long-term current use of insulin (HCC) Other infective chronic otitis externa of both ears documented in this encounter [facility] HealthcareEvaluation note* Diagnosis Obesity, morbid ([facility])- Primary Morbid obesity Type 2 diabetes mellitus [...] use of insulin (HCC)- Primary Obesity, morbid ([facility]) Morbid obesity Undifferentiated schizophrenia (HCC) Hyperlipidemia, unspecified [...] serious comorbidity and body mass index (BMI) of40.0 to 44.9 in adult ([facility]) Type 2 diabetes mellitus with hyperglycemia, without long-term current use of insulin ([facility]) Neck pain- Primary Cervicalgia documented in this encounter [facility] HealthcareEvaluation note* Diagnosis Onset Date Resolution Status Admit Date Degenerative disc disease, cervical acuteOctober 2024 9:23amDegenerative disc disease, lumbaracuteOctober 2024 9:23amFace lesionacuteOctober 2024 9:23amInfected dental cariesacute October 2024 9:23am [facility] Work Phone: Evaluation note* Diagnosis Obesity, morbid ([facility])- Primary Morbid obesity Type 2 diabetes mellitus without complication, with long-term current use of insulin ([facility]) Schizophrenia, unspecified type (HCC) Chronic obstructive pulmonary [...] use of insulin (HCC)- Primary Obesity, morbid ([facility]) Morbid obesity Undifferentiated schizophrenia (HCC) Hyperlipidemia, unspecified [...] serious comorbidity and body mass index (BMI) of40.0 to 44.9 in adult ([facility]) Type 2 diabetes mellitus with hyperglycemia, without long-term current use of insulin (HCC) Neck pain- Primary Cervicalgia Type II diabetes mellitus with complication (HCC)- Primary Type II or unspecified type diabetes mellitus with unspecified complication, not stated as uncontrolled Vitamin D deficiency Insulin long-term use (HCC) Encounter for long-term (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 of insulin Encounter for dietary consultation documented [facility] encounter [facility] Narrative No data available for this section [facility] Hospital Discharge instructions No data available for this section [facility] InstructionsNot on filedocumented in this encounter [facility] SystemProgress note No data available for this section [facility] reason for referral (narrative)* Consultation (Routine) - AuthorizedSpecialtyDiagnoses / ProceduresReferred By ContactReferred To ContactNeurology Diagnoses Type II diabetes mellitus with complication ([facility]) Procedures [place] OFFICE/OUTPATIENT NEW HIGH MDM 60 MINUTES Ashanti López NP [address] [place] [address] Ministerio Ortiz MD [address] [place] [address] Referral IDStatusReasonStart DateExpiration DateVisits RequestedVisits [id number] Specialty Services Required / [facility] HealthcareReason for referral (narrative)No reason for referral information availableLicking Memorial Hospital Work Phone: Summary Purpose Family History Relationship Condition Age at Onset Recorded Date/T hina father Diabetes mellitus Unknown Heart diseaseUnknownmotherMental disorderUnknownsisterMental disorderUnknown Advance Directives Advance Directive Response Recorded Date/ Time Advance Directives No March 15, 2017 1:52pm Advance Directive Response Recorded Date/ Time Advance Directives No March 15, 2017 12:52pm Chief Complaint and Reason for Visit Chief Complaint Admit Date April 15, 2025 11 :08am neck and back pain April 16, 2025 9: 23am Reason for Visit Admit Date Degenerative disc disease, cervical Octo 2024 9:23am Degenerative disc disease, lumbar Octobe r 2024 9:23am Face lesion April 16, 2025 9: 23am Infected dental caries April 16, 2025 9:23am Chief Complaint Admit Date neck and back pain April 16, 2025 9: 23am May 08, 2025 9 :57am MUSCLES SORE [...] :22pm Schizophrenia, acute May 19, 2025 2:22pm Additional Source Comments (unrecognized sect ion and content) No Status Records FoundNo Status Records FoundNo Status Records FoundNo Status Records FoundNo Status Records FoundNo Status Records FoundNo Status Records Found INFORMATION SOURCE (unrecogn ized section and content) DATE CREATED AUTHOR 01/09/2018 [facility] DATE CREATED AUTHOR AUTHOR'S ORGANIZ ATION 05/06/2021 [facility] [facility] DATE CREATED AUTHOR AUTHOR'S ORGANIZ ATION 11/27/[address] [facility] DATE CREATED AUTHOR AUTHOR'S ORGANIZ ATION 08/06/2023 [facility] EPIC DATE CREATED AUTHOR AUTHOR'S ORGANIZ ATION 05/05/2024 [facility] DATE CREATED AUTHOR AUTHOR'S ORGANIZ ATION 04/23/2025 [facility] DATE CREATED AUTHOR AUTHOR'S ORGANIZ ATION 05/10/2025 [facility] Care Team (unrecognized sect ion and content) Team MemberRelationshipSpecialtyStart DateEnd Date Horace Rollins MD [address] [place] [address] PCP - GeneralFamily Medicine02/21/24 Ashanti López NP [address] [place] [address] [facility]02/21/24Team MemberRelationshipSpecialtyStart DateEnd Date Horace Rollins MD [address] [place] [address] PCP - [facility]Hamilton [facility]02/21/24 Ashanti López NP [address] [place] [address] [facility]02/21/24Team MemberRelationshipSpecialtyStart DateEnd Date Horace Rollins MD [address] [place] [address] PCP - [facility]02/21/24 Ashanti López, OPHELIA [address] [place] [address] [facility]02/21/24Team MemberRelationshipSpecialtyStart DateEnd Date Horace Rollins MD [address] [place] [address] PCP - [facility]02/21/24 Ashanti López NP [address] [place] [address] Nurse [facility]02/21/24Team MemberRelationshipSpecialtyStart DateEnd Date Horace Rollins MD [address] [place] [address] PCP - [facility]05/15/24 Ashanti López NP [address] [place] [address] [facility]02/21/24Team MemberRelationshipSpecialtyStart DateEnd Date Horace Rollins MD [address] [place] [address] PCP - [facility]05/15/24 Ashanti López NP [address] [place] [address] [facility]02/21/24Team MemberRelationshipSpecialtyStart DateEnd Date Horace Rollins MD [address] [place] [address] PCP - [facility]05/15/24 Ashanti López NP [address] [place] [address] [facility]02/21/24Team MemberRelationshipSpecialtyStart DateEnd Date Horace Rollins MD [address] [place] [address] PCP - [facility]05/15/24 Ashanti López NP [address] [place] [address] [facility]02/21/24Team MemberRelationshipSpecialtyStart DateEnd Date Horace Rollins MD [address] [place] [address] PCP - [facility]02/21/24 Ashanti López NP [address] [place] [address] [facility]02/21/24Team MemberRelationshipSpecialtyStart DateEnd Date Horace Rollins MD [address] [place] [address] PCP - [facility]02/21/24 Ashanti López, OPHELIA [address] [place] [address] [facility]02/21/24Team MemberRelationshipSpecialtyStart DateEnd Date Horace Rollins MD [address] [place] [address] PCP - [facility]02/21/24 Ashanti López NP [address] [place] [address] [facility]02/21/24Team MemberRelationshipSpecialtyStart DateEnd Date Horace Rollins MD [address] [place] [address] PCP - [facility]05/15/24 Ashanti López NP [address] [place] [address] [facility]02/21/24Team MemberRelationshipSpecialtyStart DateEnd Date Horace Rollins MD [address] [place] [address] PCP - [facility]02/21/24 Ashanti López NP [address] [place] [address] [facility]02/21/24Team MemberRelationshipSpecialtyStart DateEnd Date Horace Rollins MD [address] [place] [address] PCP - [facility]02/21/24 Ashanti López NP [address] [place] [address] [facility]02/21/24Team MemberRelationshipSpecialtyStart DateEnd Date Horace Rollnis MD [address] [place] [address] PCP - [facility]02/21/24 Ashanti López NP [address] [place] [address] [facility]02/21/24Team MemberRelationshipSpecialtyStart DateEnd Date Horace Rollins MD [address] [place] [address] PCP - [facility]05/15/24 Ashanti López NP [address] [place] [address] Nurse [facility]02/21/24Team MemberRelationshipSpecialtyStart DateEnd Date Horace Rollins MD [address] [place] [address] PCP - [facility]05/15/24 Ashanti López, OPHELIA [address] [place] [address] [facility]02/21/24Team MemberRelationshipSpecialtyStart DateEnd Date Horace Rollins MD [address] [place] [address] PCP - [facility]05/15/24 Ashanti López NP [address] [place] [address] Nurse [facility]02/21/24Team MemberRelationshipSpecialtyStart DateEnd Date Horace Rollins MD [address] [place] [address] PCP - [facility]05/15/24 Ashanti López NP [address] [place] [address] Nurse [facility]02/21/24Team MemberRelationshipSpecialtyStart DateEnd Date Horace Rollins MD [address] [place] [address] PCP - [facility]05/15/24 Ashanti López NP [address] [place] [address] [facility]02/21/24Team MemberRelationshipSpecialtyStart DateEnd Date Horace Rollins MD [address] [place] [address] PCP - [facility]05/15/24 Ashanti López NP [address] [place] [address] Nurse [facility]02/21/24Team MemberRelationshipSpecialtyStart DateEnd Date Horace Rollins MD [address] [place] [address] PCP - [facility]05/15/24 Ashanti López NP [address] [place] [address] Nurse [facility]02/21/24Team MemberRelationshipSpecialtyStart DateEnd Date Horace Rollins MD [address] [place] [address] [facility] - [facility] Owavpdfy15/31/24 Ashanti López, MILKER MACHINE Nurse Pract[facility]er[facility]02/21/24Team MemberRelationshipSpecialtyStart DateEnd Date Horace Rollins MD [address] [place] [address] [facility] - [facility] Mzkqpfeb43/31/24 Ashanti López, OPHELIA Nurse [facility]er[facility]02/21/24Team MemberRelationshipSpecialtyStart DateEnd Date Horace Rollins MD [address] [place] [address] P[facility] - [facility] Fjogccpi48/31/24 Ashanti López, MILKER MACHINE Nurse [facility]er[facility]02/21/24Team MemberRelationshipSpecialtyStart DateEnd Date Horace Rollins MD [address] [place] [address] PCP - GeneralFamily Bmbexkde99/31/24 Ashanti López, OPHELIA Nurse PractitionerFamily Medicine02/21/24 Lisseth Chang, LOMBARDI DEVELOPER [address] [place] [facility] [place] [address] Social WorkerChi [facility] Medicine01/13/25Team MemberRelationshipSpecialtyStart DateEnd Date Horace Rollins MD [address] [place] [address] PCP - GeneralFamily Bcgfmuxo28/31/24 Ashanti López, MILKER MACHINE Nurse Practitionermily Medicine02/21/24 Lisseth Chang, LOMBARDI DEVELOPER [address] [place] [address] Social WorkerU[facility] Medicine01/13/25Team MemberRelationshipSpecialtyStart DateEnd Date Horace Rollins MD [address] [place] [address] PCP - GeneralFamily Zlxjybly46/31/24 Ashanti López, OPHELIA Nurse Practitionermily Medicine02/21/24 Lisseth Chang, LOMBARDI DEVELOPER [address] [place] [address] Social [facility] Medicine01/13/25Team MemberRelationshipSpecialtyStart DateEnd Date Horace Rollins MD [address] [place] [address] PCP - GeneralFamily Niizzgnp16/31/24 Ashanti López, OPHELIA Nurse Practitionermily Medicine02/21/24 Charlene Lisseth, LOMBARDI DEVELOPER [address] [facility] [place] [address] Social WorkerHamilton [facility] Center01/13/25Team MemberRelationshipSpecialtyStart DateEnd Date Horace Rollins MD [address] [place] [address] PCP - Generalmily [id number]/31/24 Ashanti López, OPHELIA Nurse Practitioner[facility]02/21/24 Lisseth Chang, LOMBARDI DEVELOPER [address] [facility] [place] [address] Social WorkerHamilton [facility] Center01/13/25Team MemberRelationshipSpecialtyStart DateEnd Date Horace Rollins MD [address] [place] [address] PCP - [facility] Whgtsvgb46/31/24 Ashanti López, OPHELIA Nurse Pract[facility]er[facility]02/21/24 Charlene Lisseth, LOMBARDI DEVELOPER [address] [place] [facility] [place] [address] Social WorkerU[facility] Medicine Team Status: Active Member Role Status Dates Lori Harper DO Primary Care Provider Active Team Status: Active Member Role Status Dates Bam Mcfarland MD Primary Care Provider Active Start: March 28, 2025 Gracy Perez ProviderActiveStart: March 28, 2025 Team Status: Active Member Role Status Dates Bam Mcfarland MD Primary Care Provider Active Start: April 15, 2025 Gracy Padron ProviderActiveStart: April 15, 2025 Team Status: Inactive Member Role Status Dates Lori Harper DO Primary Care Provider Active S tart: April 16, 2025 End: April 16, 2025Lori Harper DOAttending ProviderActiveStart: April 16, 2025 End: April 16, 2025Team MemberRelationshipSpecialtyStart DateEnd Date Horace Rollins MD PCP - GeneralFamily Enaywhre02/31/24 Shaikh Silva MD [address] [place] [address] PCP - Human11/13/20 Ashanti López NP Nurse PractitionerChi [facility] Medicine02/21/24Team MemberRelationshipSpecialtyStart DateEnd Date Horace Rollins MD PCP - Generalmily Inelzjsy40/31/24 Shaikh Silva MD [address] [place] [address] PCP - Human11/13/20 Ashanti López, OPHELIA Nurse Practitioner[facility]02/21/24Team MemberRelationshipSpecialtyStart DateEnd Date Shaikh Silva MD PCP - GeneralInternal Medicine Horace Rollins MD PCP - GeneralFamily Medicine02/20/2410 Unallocated, Henrik Daniel MD [address] [place] [address] PCP - [facility] Cmrnbzir52/21/ Horace Rollins MD PCP - [facility] Rnyxhgvn71/31/24 Shaikh Silva MD [address] [place] [address] PCP - [facility]11/13/20 Ashanti López NP Nurse PractitionerChi [facility]02/21/24 Lisseth Chang, LOMBARDI DEVELOPER [address] [place] [address] Social WorkerUmass [facility] Medicine Team Status: Active Member Role/Relationship Status Dates Lori Harper DO Primary Care Provider Active Team Status: Active Member Role/Relationship Status Dates Bam Mcfarland MD Primary Care Provider Active Start: March 28, 2025 Katie Linda MDAttending ProviderActiveStart: March 28, 2025 Team Status: Inactive Member Role/Relationship Status Dates Lori Harper DO Primary Care Provider Active S tart: April 16, 2025 End: April 16, 2025Lori Harper DOAttending ProviderActiveStart: April 16, 2025 End: April 16, 2025 Team Status: Active Member Role/Relationship Status Dates Bam Mcfarland MD Primary Care Provider Active Start: May 08, 2025 Kota Pozo MDAttending ProviderActiveStart: May 08, 2025 Team Status: Inactive Member Role/Relationship Status Dates Lori Harper DO Primary Care Provider Active S tart: May 19, 2025 End: May 19, 2025Lori Harper DOAttending ProviderActiveStart: May 19, 2025 End: May 19, 2025 Reason for Visit (unrecogniz ed section and content) ReasonCommentsToenail CareReasonCommentsBlood Sugar ProblemElevated FBS's in the 250's, Pt recently started diet back up and FBS's have been 100 to 120Reason UvapknpsDitwxc-phOdvizhYmbjovfhAcutfq-dqMlq DrainageNERVE PAINReasonCommentsDM Foot CareDm nail careReasonCommentsDiabetesSpecialtyDiagnoses / Procedures Referred By ContactReferred To ContactEndocrinology Diagnoses Type II diabetes mellitus with complication ([facility]) Procedures [place] OFFICE/OUTPATIENT [facility] MDM 60 MINUTES Ashanti López NP [address] [place] [address] Phone: tel: fax: Zaria Xie MD [address] [facility] [place] [address] Phone: tel: fax: Referral IDStatusReasonStart DateExpiration DateVisits RequestedVisits [id number] Specialty Services Required 1ReasonOnset DateCommentsMedication Xbyaiys0508/26/2024Reason Onset DateCommentsNEW PATIENT [id number]/13/2024ReasonOnset DateComments Medication Dtairqr1111/20/2024ReasonCommentsFollow-upMuscle sorenessReasonComments Ear ProblemEar drainageReasonCommentsMed Change RequestReasonCommentsFollow-up Neck pain/ ear painReasonCommentsDiabetesFollow-up Goals (unrecognized section and content) Goals may be documented in a n alternate section FOR RECORDS PERTAINING TO PATIENTS WHO ARE [...] BE BASED ON THE PRIMARY CLINICAL RECORDS. [facility] [employer] [facility]. provides no warranty or guarantee of the accuracy or completeness of information in this document.
[2025-05-27 13:50] LABS: Hematocrit 42.7 % (42.0-54.0); Hemoglobin 14.7 g/dL (14.0-18.0); Immature Granulocytes Abs Auto 0.06 10^3/uL (0.00-0.03); Immature Granulocytes Pct Auto 0.7 % (0.0-0.5); Lymphocytes Absolute Auto 2.6 10^3/uL (1.2-3.8); Mean Corpuscular HGB Conc 34.4 g/dL (29.9-35.2); Mean Corpuscular Hemoglobin 32.2 pg (25.9-34.0); Mean Corpuscular Volume 93.6 fL (80.0-94.0); Platelet Count 207 10^3/uL (150-450); Red Blood Count 4.56 10^6/uL (4.70-6.10); White Blood Count 8.3 10^3/uL (4.0-11.0)
[2025-05-27 14:15] LABS: Alanine Aminotransferase 33 U/L (16-63); Albumin Globulin Ratio 0.6; Albumin Level 2.9 g/dL (3.4-5.0); Alkaline Phosphatase 172 U/L (46-116); Anion Gap 7.7; Aspartate Amino Transferase 13 U/L (15-37); Blood Urea Nitrogen 22.0 mg/dL (7.0-18.0); Calcium 9.3 mg/dL (8.5-10.1); Carbon Dioxide 32.3 mmol/L (21.0-32.0); Chloride 97 mmol/L (98-107); Estimated GFR (African America >60 (>=60 mL/min/1.73m^2); Estimated GFR (Non-African Ame >60 (>=60 mL/min/1.73m^2); Globulin 4.9 g/dL; Glucose 346 mg/dL (74-106); Magnesium 1.8 mg/dL (1.8-2.4); Potassium 4.0 mmol/L (3.5-5.1); Sodium 133 mmol/L (136-145); Thyroid Stimulating Hormone 0.950 uIU/mL (0.358-3.740); Total Protein 7.8 g/dL (6.4-8.2); Uric Acid 3.0 mg/dL (3.5-7.2)
== END 2025-05-27 13:23 | disposition home or self-care (01) ==
LOC: LAB 13:25
PROVIDERS: PCP Family Medicine; Visit Provider Family Medicine
DX: R25.2 Cramp and spasm (principal); M25.561 Pain in right knee; M25.562 Pain in left knee
CPT/HCPCS: 36415; 80053; 83735; 84443; 84550; 85025; 85652; 86140